=== PATIENT | female | born 1945 | race Caucasian/White ===

== ENCOUNTER 2018-03-09 07:44 | Inpatient (IN) | payer MEDICARE ==
[2018-03-07 14:40] LABS: BASOPHILS # (AUTO) 0.1 (0.0-0.1); BASOPHILS % 0.4 % (0.0-1.0); EOSINOPHILS # (AUTO) 0.3 (0.0-0.4); EOSINOPHILS % 2.3 % (0.0-6.0); HEMATOCRIT 31.3 % (34.2-44.1); HEMOGLOBIN 9.8 g/dL (12.0-16.0); LYMPHOCYTES # (AUTO) 3.1 (1.0-3.2); LYMPHOCYTES % 27.2 % (18.0-39.1); MEAN CORPUSCULAR HEMOGLOBIN 31.3 pg (28-32); MEAN CORPUSCULAR HGB CONC 31.3 g/dL (31-35); MONOCYTES % 8.6 % (4.4-11.3); NEUTROPHILS % 61.2 % (38.7-80.0); PLATELET COUNT 185 x10e3/uL (140-360); RED BLOOD COUNT 3.13 x10e6/uL (3.6-5.1); RED CELL DISTRIBUTION WIDTH 12.1 % (11.7-14.4)
[2018-03-07 14:57] LABS: ANION GAP 16.3 mmol/L (8-16); CALCIUM 9.2 mg/dL (8.4-10.2); CREATININE, SERUM 2.57 mg/dL (0.57-1.11); POTASSIUM 4.3 mmol/L (3.5-5.1)
--- NOTE | 2018-03-07 15:18 | Diagnostic Imaging Report ---
EXAMINATION: PA and lateral views of the chest. COMPARISON: None CLINICAL HISTORY: Preoperative evaluation for hernia removal DISCUSSION: Lines/tubes: Sternotomy wires. Single lead ICD with the lead projecting left of the generator in the left lower chest. Lungs: The lungs are well inflated and clear. No pneumonia or pulmonary edema. Pleura: No pleural effusion or pneumothorax. Heart and mediastinum: Mild cardiomegaly Bones and soft tissues: No acute bony abnormalities. IMPRESSION: No acute cardiopulmonary abnormalities. Signed by: Dr. Javed King M.D. on 03/07/2018 3:14 PM
[~2018-03-09] VITALS: Ht 177.8 cm; Wt 98.6 kg
[~2018-03-09 07:44] MED LIST: ACETAMINOPHEN650 MG PO; AMIODARONE HCL200 MG PO; AMLODIPINE BESYL5 MG PO; ASPIR 8181 MG PO; ASPIR-LOW81 MG PO; ATORVASTATIN CA80 MG PO; BISACODYL5 MG PO; BUMETANIDE2 MG PO; CALCIUM-MAGNES1 EACH PO; CALCIUM600 MG PO; CARVEDILOL3.125 MG PO; CLONIDINE HCL0.2 MG PO; COMBIVENT RESPIM4 GM INH; CYCLOBENZAPRINE10 MG PO; DOCUSATE SODIU100 MG PO; DOXYCYCLINE MO100 MG PO; FERROUS SULFAT325 M1 PO; FLUOXETINE HCL20 MG PO; FOLIC ACID PO; FUROSEMIDE40 MG PO; GABAPENTIN300 MG PO; GABAPENTIN300 MG/6 M PO; GLYCERIN1 EAC1 RC; HEPARIN SO1000 UNIT/ IVP; HEPARIN SO5000 UNIT/ IV; HUMALOG100 UNIT/3 SQ; HYDROCODONE PO; LACTULOSE20 GM/30 M PO; LEVEMIR100 UNIT/1 SQ; LIDOCAINE PATCH TD; LINZESS PO; MANNITOL50 ML IVP; MEGARED PO; MEROPENEM500 MG IV; METFORMIN HCL500 MG PO; METOPROLOL TART25 MG PO; MULTIVITAMIN PO; MULTIVITAMINS1 EAC7 PO; NOVOLOG MI100 UNITS/ SQ; NYSTATIN1 EAC1 TOP; PANTOPRAZOLE SO40 MG IVP; PANTOPRAZOLE SO40 MG PO; POLYETHYLENE GL17 GM PO; PRILOSEC40 MG PO; PROMETHAZINE HC25 M1 PO; PROTEIN POWDER454 GM PO; QUETIAPINE FUMA25 MG PO; SERTRALINE HCL50 MG PO; TRAZODONE HCL50 MG PO; TYLENOL WITH C1 EACH PO; ULTRAM50 MG PO; VANCOMYCIN HCL500 MG IV; VITAMIN RENAL PO; VOLTAREN100 GM TOP; WARFARIN SODIUM1 MG PO; ZOFRAN ODT4 MG IVP; ZOLPIDEM TARTRA10 MG PO
[2018-03-09] MEDS ORDERED: CEFAZOLIN SOD 2 GM/D5W 50ML 50 ML IV ONE (08:06)
[2018-03-09] MEDS ORDERED: BUPIVACAINE HCL 0.5% INJ 30 ML VIAL INJ ONE (09:42)
[2018-03-09] MEDS ORDERED: CISATRACURIUM BESYLATE IV ONE ×2 (09:42→09:45)
[2018-03-09] MEDS ORDERED: TRAMADOL HCL 50 MG TAB PO PRN (10:45)
[2018-03-09] MEDS ORDERED: ONDANSETRON HCL INJ 2 MG/ML VIAL IV PRN (10:45)
[2018-03-09] MEDS ORDERED: MORPHINE SULFATE INJ 4 MG/ML INJ IV PRN (10:45)
--- NOTE | 2018-03-09 11:30 | Operative Report ---
DATE OF PROCEDURE: March 09, 2018 PREOPERATIVE DIAGNOSES 1. Umbilical hernia. 2. Gastrocutaneous fistula. POSTOPERATIVE DIAGNOSES 1. Umbilical hernia. 2. Gastrocutaneous fistula. PROCEDURES 1. Resection of gastrocutaneous fistula with closure of gastric perforation. 2. Repair of umbilical hernia. ETCHER ELECTROLYTIC: None. ANESTHESIA: General endotracheal. INDICATIONS AND FINDINGS: Patient is a 72-year-old female who previously had a gastrostomy tube which was removed but never healed. She also had a large hernia in the umbilicus and just above it. At surgery, the patient had an umbilical hernia containing a large amount of colon and small bowel with a fascial defect that was about 6 cm in diameter. There was a fistula from the stomach. The stomach was adherent to the abdominal wall at the site of the gastrostomy tube, which was resected without problem. TECHNIQUE: After adequate general endotracheal anesthesia, with the patient in the supine position, the abdomen was prepped and draped in a sterile fashion with Betadine solution. A transverse incision was made over the area of the hernia and carried down through subcutaneous tissue. The hernia mass was dissected free from the subcutaneous tissues down to the fascia. The hernia sac was opened. There were colon and small bowel within the hernia sac which was reduced in the peritoneal cavity. The umbilicus was freed from the hernia sac. The redundant hernia sac was excised. Going through the hernia defect, the area of the fistula was identified. The abdominal wall was elevated, and the stomach was grasped with an Allis clamp. It was dissected free from the abdominal wall. The fistula from the stomach was resected. A TL60 stapler was placed across the stomach and fired, resecting the fistula and closing the gastric perforation. The wound in the left upper quadrant where the fistula was was left open. The mucosa and some granulation tissue were cauterized with electrocautery. The peritoneal cavity was inspected for hemostasis, which was seen to be adequate. The umbilical hernia was then closed directly transversely with a running suture of #1 Prolene. Subcutaneous tissue was irrigated with saline. A 10-mm flat Ronn-Walter drain was placed in the subcutaneous tissue through a separate stab wound incision. The umbilicus had a small opening. This was closed with 3-0 Vicryl and Dermabond. It was sutured to the fascia using 3-0 Vicryl. Subcutaneous tissue was closed with a running suture of 3-0 Vicryl. Skin was closed with chinmay. Sterile dressing was applied. Patient tolerated the procedure well. Estimated blood loss was 40 mL. There were no complications. All counts were correct. Patient was taken to the recovery room in satisfactory condition. Job#: [id number] cc:KENYETTA NAVA DO
[2018-03-09 11:54] VITALS: BP 169/72
[2018-03-09] MEDS ORDERED: DEXTROSE 50% SYRINGE 50 ML IV PRN (12:45)
[2018-03-09] MEDS: SODIUM CHLORIDE 0.9% 1000ML 1,000 ML IV SCH ×2 (12:56→20:44)
[2018-03-09 13:03] VITALS: BP 142/60
[2018-03-09] MEDS: HYDROCODONE/APAP 7.5MG-325MG 1 EA TAB PO PRN ×2 (13:14→18:24)
[2018-03-09 13:21] VITALS: BP 142/60
[2018-03-09] MEDS ORDERED: CEFAZOLIN SOD 2 GM in WATER STERILE 10ML VIAL 10 ML IV SCH (14:00)
[2018-03-09] MEDS: CEFAZOLIN SOD 2 GM/D5W 50ML 50 ML IV SCH ×2 (14:45→21:50)
[2018-03-09] MEDS: GABAPENTIN 300 MG CAP PO SCH ×2 (15:14→21:49)
[2018-03-09 16:00] VITALS: BP 143/65
[2018-03-09] MEDS ORDERED: NON-FORMULARY MEDICATION (Insulin Detemir (Levemir) 40 UNITS) SQ SCH (16:30)
[2018-03-09] MEDS ORDERED: NON-FORMULARY MEDICATION (Bumetanide 2 MG) PO SCH (17:00)
[2018-03-09] MEDS: BUMETANIDE 1 MG TAB PO SCH (17:14)
[2018-03-09] MEDS: CLONIDINE HCL 0.2 MG TAB PO SCH (17:14)
[2018-03-09] MEDS: INSULIN DETEMIR 100 UNIT/ML PEN SQ SCH (17:15)
[2018-03-09] MEDS ORDERED: PROPOFOL IV EMULSION 10 MG/ML 20 ML VIAL ONE (17:24)
[2018-03-09] MEDS ORDERED: SEVOFLURANE INHAL SOLN 250 ML PEN BTL ONE (17:24)
[2018-03-09] MEDS ORDERED: GLYCOPYRROLATE INJ 1MG/ 5 ML SYR ONE (17:24)
[2018-03-09] MEDS ORDERED: DEXAMETHASONE SOD PHOS INJ 4 MG/ML VIAL ONE (17:24)
[2018-03-09] MEDS ORDERED: NEOSTIGMINE 5 MG/5ML SYR ONE (17:24)
[2018-03-09] MEDS ORDERED: ONDANSETRON HCL INJ 2 MG/ML VIAL ONE (17:24)
[2018-03-09] MEDS ORDERED: LIDOCAINE HCL 2% LOCAL INJ 5 ML SDV VIAL INJ ONE (17:24)
[2018-03-09] MEDS: INSULIN LISPRO 100 UNIT/1 ML 3ML VIAL SQ SCH ×2 (18:07→21:50)
[2018-03-09] MEDS ORDERED: FENTANYL CITRATE/PF 100MCG/2 ML INJ ONE (19:16)
[2018-03-09] MEDS ORDERED: MIDAZOLAM HCL 2 MG/2 ML VIAL ONE (19:16)
[2018-03-09 20:00] VITALS: BP 133/59
[2018-03-09] MEDS ORDERED: ATORVASTATIN CALCIUM 20 MG PO SCH (21:00)
[2018-03-09] MEDS: ATORVASTATIN 20 MG TAB PO SCH (21:49)
[2018-03-10] VITALS (8 sets, daily range): BP systolic 119–167; BP diastolic 56–80
[2018-03-10] MEDS: SODIUM CHLORIDE 0.9% 1000ML 1,000 ML IV SCH ×2 (04:49→16:50)
[2018-03-10] MEDS: CEFAZOLIN SOD 2 GM/D5W 50ML 50 ML IV SCH ×3 (05:15→21:04)
[2018-03-10 05:24] LABS: BASOPHILS % 0.2 % (0.0-1.0); EOSINOPHILS # (AUTO) 0.1 (0.0-0.4); EOSINOPHILS % 0.5 % (0.0-6.0); HEMATOCRIT 28.4 % (34.2-44.1); HEMOGLOBIN 9.1 g/dL (12.0-16.0); LYMPHOCYTES % 26.9 % (18.0-39.1); MEAN CORPUSCULAR HEMOGLOBIN 31.5 pg (28-32); MEAN CORPUSCULAR VOLUME 98.3 fL (81-99); MONOCYTES # (AUTO) 0.9 (0.2-0.8); MONOCYTES % 8.4 % (4.4-11.3); NEUTROPHILS % 63.6 % (38.7-80.0); PLATELET COUNT 183 x10e3/uL (140-360); RED BLOOD COUNT 2.89 x10e6/uL (3.6-5.1); RED CELL DISTRIBUTION WIDTH 12.1 % (11.7-14.4)
[2018-03-10 06:04] LABS: ANION GAP 14.6 mmol/L (8-16); CALCIUM 9.3 mg/dL (8.4-10.2); CREATININE, SERUM 2.1 mg/dL (0.57-1.11); POTASSIUM 4.6 mmol/L (3.5-5.1)
[2018-03-10] MEDS: HYDROCODONE/APAP 7.5MG-325MG 1 EA TAB PO PRN ×4 (06:45→22:14)
[2018-03-10] MEDS: INSULIN LISPRO 100 UNIT/1 ML 3ML VIAL SQ SCH ×4 (07:30→20:28)
[2018-03-10] MEDS: LINACLOTIDE 145 MCG CAPSULE PO SCH (08:54)
[2018-03-10] MEDS: GABAPENTIN 300 MG CAP PO SCH ×3 (08:54→21:04)
[2018-03-10] MEDS: ASPIRIN 81 MG CHEW TAB PO SCH (08:54)
[2018-03-10] MEDS: FLUOXETINE HCL 20 MG CAP PO SCH (08:54)
[2018-03-10] MEDS: AMLODIPINE BESYLATE 5 MG TAB PO SCH (08:54)
[2018-03-10] MEDS: BUMETANIDE 1 MG TAB PO SCH ×2 (08:54→16:50)
[2018-03-10] MEDS: FERROUS SULFATE 325 MG TAB PO SCH (08:54)
[2018-03-10] MEDS: CLONIDINE HCL 0.2 MG TAB PO SCH ×2 (08:54→16:50)
[2018-03-10] MEDS: CALCIUM CARBONATE 500 MG CHEWABLE TABS PO SCH (08:55)
[2018-03-10] MEDS ORDERED: NON-FORMULARY MEDICATION (Calcium Carbonate (Calcium) 600 MG) PO SCH (09:00)
[2018-03-10] MEDS ORDERED: LINZESS 145 MCG PO SCH (09:00)
[2018-03-10] MEDS: INSULIN DETEMIR 100 UNIT/ML PEN SQ SCH (17:07)
[2018-03-10] MEDS: ATORVASTATIN 20 MG TAB PO SCH (21:04)
[2018-03-11] VITALS (7 sets, daily range): BP systolic 147–203; BP diastolic 66–86
[2018-03-11] MEDS: SODIUM CHLORIDE 0.9% 1000ML 1,000 ML IV SCH (04:49)
[2018-03-11] MEDS: CLONIDINE HCL 0.2 MG TAB PO SCH (04:49)
[2018-03-11] MEDS: CEFAZOLIN SOD 2 GM/D5W 50ML 50 ML IV SCH (06:09)
[2018-03-11] MEDS: INSULIN LISPRO 100 UNIT/1 ML 3ML VIAL SQ SCH ×2 (07:30→11:30)
[2018-03-11 08:48] LABS: BASOPHILS % 0.3 % (0.0-1.0); EOSINOPHILS # (AUTO) 0.3 (0.0-0.4); EOSINOPHILS % 2.9 % (0.0-6.0); HEMATOCRIT 30.3 % (34.2-44.1); LYMPHOCYTES # (AUTO) 2.3 (1.0-3.2); LYMPHOCYTES % 26.1 % (18.0-39.1); MEAN CORPUSCULAR HEMOGLOBIN 31.9 pg (28-32); MEAN CORPUSCULAR VOLUME 96.8 fL (81-99); MONOCYTES # (AUTO) 0.7 (0.2-0.8); MONOCYTES % 8.4 % (4.4-11.3); NEUTROPHILS # (AUTO) 5.4 (2.1-6.9); PLATELET COUNT 168 x10e3/uL (140-360); RED BLOOD COUNT 3.13 x10e6/uL (3.6-5.1); RED CELL DISTRIBUTION WIDTH 12.1 % (11.7-14.4)
[2018-03-11] MEDS: BUMETANIDE 1 MG TAB PO SCH (08:50)
[2018-03-11] MEDS: GABAPENTIN 300 MG CAP PO SCH ×2 (08:50→14:58)
[2018-03-11] MEDS: FLUOXETINE HCL 20 MG CAP PO SCH (08:50)
[2018-03-11] MEDS: AMLODIPINE BESYLATE 5 MG TAB PO SCH (08:50)
[2018-03-11] MEDS: FERROUS SULFATE 325 MG TAB PO SCH (08:50)
[2018-03-11] MEDS: LINACLOTIDE 145 MCG CAPSULE PO SCH (08:50)
[2018-03-11] MEDS: CALCIUM CARBONATE 500 MG CHEWABLE TABS PO SCH (08:50)
[2018-03-11] MEDS: HYDROCODONE/APAP 7.5MG-325MG 1 EA TAB PO PRN ×2 (08:50→14:59)
[2018-03-11] MEDS: ASPIRIN 81 MG CHEW TAB PO SCH (08:50)
[2018-03-11 09:24] LABS: ALBUMIN 3.1 g/dL (3.5-5.0); ALBUMIN/GLOBULIN RATIO 0.8 (0.8-2.0); ALKALINE PHOSPHATASE 92 IU/L (40-150); ANION GAP 15.3 mmol/L (8-16); BLOOD UREA NITROGEN 28 mg/dL (7-26); BUN/CREATININE RATIO 16 (6-25); CALCIUM 9.5 mg/dL (8.4-10.2); CARBON DIOXIDE 28 mmol/L (22-29); CHLORIDE 102 mmol/L (98-107); CREATININE, SERUM 1.78 mg/dL (0.57-1.11); EST GLOMERULAR FILTRATION RATE 28 ML/MIN (60-); GLUCOSE 87 mg/dL (74-118); POTASSIUM 4.3 mmol/L (3.5-5.1); SODIUM 141 mmol/L (136-145)
[2018-03-11 09:28] LABS: ALANINE AMINOTRANSFERASE < 6 IU/L (0-55)
[2018-03-11] MEDS ORDERED: TYLENOL # 31 EA PO (15:37)
== END 2018-03-11 16:21 | disposition home or self-care (01) | DRG 354 ==
LOC: OR 07:44 → PACU V 11:10 → MED/SURG 11:54
PROVIDERS: ADMIT Surgery; ATTEND Surgery
PROC: 0WBF0ZZ Excision of Abdominal Wall, Open Approach (ICD-10-PCS; 2018-03-09)
PROC: 0WQF0ZZ Repair Abdominal Wall, Open Approach (ICD-10-PCS; principal; 2018-03-09 09:54)
DX: K42.9 Umbilical hernia without obstruction or gangrene (principal); K31.6 Fistula of stomach and duodenum; N18.4 Chronic kidney disease, stage 4 (severe); N17.9 Acute kidney failure, unspecified; I25.2 Old myocardial infarction; Z86.73 Personal history of transient ischemic attack (TIA), and cerebral infarction without residual deficits; Z96.653 Presence of artificial knee joint, bilateral; I25.10 Atherosclerotic heart disease of native coronary artery without angina pectoris; E11.22 Type 2 diabetes mellitus with diabetic chronic kidney disease; I12.9 Hypertensive chronic kidney disease with stage 1 through stage 4 chronic kidney disease, or unspecified chronic kidney disease; Z79.4 Long term (current) use of insulin; D64.9 Anemia, unspecified; E11.65 Type 2 diabetes mellitus with hyperglycemia; Z95.1 Presence of aortocoronary bypass graft
CPT/HCPCS: 36415; 71046; 80048; 80053; 82948; 85025; 86850; 86900; 88302; 88304; 88305; 93005; 96372; J1100; J2001; J2250; J2405; J7030

== ENCOUNTER 2018-08-21 09:00 | Inpatient (IN) | payer MEDICARE, OTHER ==
[~2018-08-21] VITALS: Ht 177.8 cm; Wt 94.5 kg
[~2018-08-21 09:00] MED LIST changes: +TYLENOL # 31 EA PO
--- OUTSIDE RECORDS SUMMARY | 2018-08-21 09:06 | XMS REPORT | Clinical Summary ---
Author Author [facility] Organization [facility] Address Unknown Phone Unavailable Care Team Providers Care Retail Sales Merchandiser Name Role Phone Amilcar Pedersen MD PCP Allergies Comments Active Allergy Reactions Severity Noted Date Levofloxacin 12/28/2016 Medications End Date Status Medication Sig Dispensed Refills Start Date Active amIODarone (PACERONE) 200 0 MG tablet 7 Active amLODIPine (NORVASC) 5 mg 0 tablet 7 Active atorvastatin (LIPITOR) 20 0 MG tablet 7 Active RESTASIS 0.05 % 0 ophthalmic emulsion 7 Active doxycycline (VIBRA-TABS) 0 100 MG tablet 7 Active FLUoxetine (PROzac) 20 MG 0 capsule 7 Active furosemide (LASIX) 40 mg 0 tablet 7 Active furosemide (LASIX) 20 mg 0 tablet 7 Active gabapentin (NEURONTIN) 0 300 mg capsule 7 Active HYDROcodone-acetaminophen 0 (NORCO) 10-325 mg per 7 tablet Active LEVEMIR FLEXTOUCH 100 0 unit/mL (3 mL) insulin 7 pen Active HUMALOG KWIKPEN 100 0 unit/mL injection pen 7 Active ROZEREM 8 mg tablet 0 7 Active metoprolol tartrate 0 (LOPRESSOR) 25 mg tablet 7 Active metFORMIN XR 0 (GLUCOPHAGE-XR) 500 mg 24 7 hr tablet Active lidocaine (LIDODERM) 5 % 0 7 Active COMBIVENT RESPIMAT 20-100 0 mcg/actuation mist 7 inhaler Active traMADol (ULTRAM) 50 mg Take 50 mg by 0 tablet mouth every 6 (six) hours as needed for moderate pain. Active acetaminophen (TYLENOL) Take 325 mg 0 325 MG tablet by mouth every 6 (six) hours as needed for fever. Active cyclobenzaprine Take 5 mg by 0 (FLEXERIL) 5 mg tablet mouth 3 (three) times a day as needed for muscle spasms. Active lactulose (CEPHULAC) 10 Take 10 g by 0 gram packet mouth 3 (three) times a day. Active polyethylene glycol Take 17 g by 0 (MIRALAX) 17 gram packet mouth daily. Active Problems Not on file Family History Medical History Relation Name Comments Heart attack Father Heart attack Mother Relation Name Status Comments Father Mother Social History Date Tobacco Use Types Packs/Day Years Used Never Smoker Alcohol Use Drinks/Week oz/Week Comments No Sex Assigned at Date Recorded Not on file Industry Job Start Date Occupation Not on file Not on file Not on file Travel End Travel History Travel Start No recent travel history available. Last Filed Vital Signs Not on file Plan of Treatment Health Maintenance Due Date Last Done Comments BREAST CANCER SCREENING 1995 COLON CANCER SCREENING 1995 SHINGLES VACCINES (#1) 1995 65+ PNEUMOCOCCAL VACCINE 2010 (1 of 2 - PCV13) PNEUMOCOCCAL 2010 POLYSACCHARIDE VACCINE AGE 65 AND OVER INFLUENZA VACCINE 01/12/2018 Results Not on fileafter 08/20/2017 Insurance Payer Benefit Subscriber ID Type Phone Address Plan / Group [facility] xxxxxxxxx HMO/PPO THCARE CHOICE/CHO ICE + Advance Directives Patient has advance care planning documents on file. For more information, soheila chavez contact: Wil[address] [place] [address]
--- OUTSIDE RECORDS SUMMARY | 2018-08-21 09:07 | XMS REPORT | Clinical Summary ---
Author Author [facility] Organization [facility] Address Unknown Phone Unavailable Care Team Providers Care Road Cleaner Name Role Phone Amilcar Pedersen MD PCP [...] ID Type Phone Address Plan / Group [facility] xxxxxxxxx HMO/PPO THCARE CHOICE/CHO ICE + Advance Directives Patient has advance care planning documents on file. For more information, soheila chavez contact: [address] [place] [address]
[2018-08-21 10:27] LABS: BASOPHILS % 0.4 % (0.0-1.0); HEMOGLOBIN 13.2 g/dL (12.0-16.0); LYMPHOCYTES # (AUTO) 0.6 (1.0-3.2); LYMPHOCYTES % 12.8 % (18.0-39.1); MEAN CORPUSCULAR HEMOGLOBIN 30.2 pg (28-32); MEAN CORPUSCULAR HGB CONC 31.4 g/dL (31-35); MEAN CORPUSCULAR VOLUME 96.1 fL (81-99); MONOCYTES # (AUTO) 0.4 (0.2-0.8); NEUTROPHILS # (AUTO) 3.6 (2.1-6.9); NEUTROPHILS % 78.6 % (38.7-80.0); PLATELET COUNT 215 x10e3/uL (140-360); RED BLOOD COUNT 4.37 x10e6/uL (3.6-5.1); RED CELL DISTRIBUTION WIDTH 12.3 % (11.7-14.4)
[2018-08-21 10:33] LABS: INR 1.01; PROTHROMBIN TIME 13.8 seconds (11.9-14.5)
[2018-08-21 10:43] LABS: ALBUMIN 3.4 g/dL (3.5-5.0); ALBUMIN/GLOBULIN RATIO 0.8 (0.8-2.0); ANION GAP 18.2 mmol/L (8-16); CALCIUM 10.3 mg/dL (8.4-10.2); CREATININE, SERUM 2.6 mg/dL (0.57-1.11); MAGNESIUM 1.9 MG/DL (1.3-2.1); POTASSIUM 4.2 mmol/L (3.5-5.1)
[2018-08-21 10:44] LABS: CLARITY,URINE CLEAR (CLEAR); COLOR,URINE YELLOW (YELLOW)
[2018-08-21 10:45] LABS: BILIRUBIN,URINE NEGATIVE (NEGATIVE); KETONES,URINE NEGATIVE (NEGATIVE); LEUKOCYTE ESTERASE ,URINE NEGATIVE (NEGATIVE); NITRITE,URINE NEGATIVE (NEGATIVE); PROTEIN,URINE DIPSTICK 2+ (NEGATIVE); RBC,URINE 0-5 /HPF (0-5); URINE UROBILINOGEN 0.2 mg/dL (0.2 - 1); WBC,URINE (MAN) 0-5 /HPF (0-5)
[2018-08-21 10:46] LABS: AMORPHOUS SEDIMENT,URINE FEW (FEW)
[2018-08-21 10:50] LABS: CREATINE KINASE MB 0.2 ng/mL (0-5.0)
[2018-08-21] MEDS ORDERED: SODIUM CHLORIDE 0.9% 500ML 500 ML IV ONE (11:00)
[2018-08-21 11:06] LABS: B-TYPE NATRIURETIC PEPTIDE2 422.2 pg/mL (0-100)
--- NOTE | 2018-08-21 11:07 | NUR ---
BEDSIDE REPORT TO DARA Harmon
--- NOTE | 2018-08-21 11:22 | Diagnostic Imaging Report ---
Exam: Head CT without contrast History: Weakness, altered mental status, fall Comparison studies: None Technique: Axial images were obtained from the skull base to the vertex. Coronal and sagittal images reconstructed from the axial data. Dose modulation, iterative reconstruction, and/or weight based adjustment of the mA/kV was utilized to reduce the radiation dose to as low as reasonably achievable. Radiation dose: Total DLP: 921 mGy*cm. Estimated effective dose: DLP x 0.015 Intravenous contrast: None Findings: Scalp: No abnormalities. Bones: No fractures, blastic or lytic lesions. Brain sulci: Appropriate for age. Ventricles: Mild compensatory dilatation of the lateral and third ventricles. No hydrocephalus. Extra-axial spaces: No masses, no fluid collection. Parenchyma: No mass, acute hemorrhage or acute cortical vascular insults. A few scattered hypodensities in the supratentorial white matter are nonspecific but most compatible with chronic small vessel ischemic changes. Sellar/suprasellar region: No abnormalities. Craniocervical junction: Patent foramen magnum. No Chiari one malformation. Incidental findings: Atherosclerotic calcifications in the carotid siphons and in the right intradural vertebral artery. IMPRESSION: 1. No acute abnormalities. 2. Mild chronic microvascular ischemic changes. Signed by: Dr. Anthony Gann M.D. on 08/21/2018 11:19 AM
--- NOTE | 2018-08-21 11:27 | Diagnostic Imaging Report ---
EXAMINATION: Portable AP radiograph of the chest. COMPARISON: Chest radiograph 03/07/2018. CLINICAL HISTORY: Cough, weakness. DISCUSSION: Lines/tubes: Implantable ICD with lead projecting just left of the sternum and generator in the left lower chest. Lungs: The lungs are moderately inflated. No evidence of pneumonia or pulmonary edema. A nodular opacity projects over the left upper lung. Mild central vascular congestion. Pleura: No pleural effusion or pneumothorax. Heart and mediastinum: Unremarkable cardiomediastinal silhouette. Bones and soft tissues: No acute bony abnormalities. Degenerative changes in the thoracic spine IMPRESSION: No acute radiographic abnormality. Nodular opacity projects over the left upper lung. A chest CT is recommended for further evaluation. Signed by: Dr. Kathleen Ruiz MD on 08/21/2018 11:23 AM
[2018-08-21 11:28] LABS: BAND NEUTROPHILS % (MANUAL) 42 %; LYMPHOCYTES % (MANUAL) 27 % (19-48); METAMYELOCYTES % (MANUAL) 1 % (0-0); MONOCYTES % (MANUAL) 9 % (3.4-9.0); NEUTROPHILS % (MANUAL) 21 % (40-74); PLATELET ESTIMATE ADEQUATE; PLATELET MORPHOLOGY COMMENT NORMAL; RBC MORPHOLOGY COMMENT NORMAL
[2018-08-21] MEDS: CEFEPIME 2 GM/NS 0.9% 100 ML 100 ML IV SCH (12:00)
[2018-08-21] MEDS ORDERED: VANCOMYCIN 1GM/NS 250 ML 250 ML IV ONE (12:15)
--- NOTE | 2018-08-21 12:47 | Diagnostic Imaging Report ---
EXAM: CT Abdomen and Pelvis WITHOUT contrast INDICATION: Weakness, altered mental status, status post fall. COMPARISON: Chest radiograph 08/21/2018. TECHNIQUE: Abdomen and pelvis were scanned utilizing a multidetector helical scanner from the lung base to the pubic symphysis without administration of IV contrast. Absence of intravenous contrast decreases sensitivity for detection of focal lesions and vascular pathology. Coronal and sagittal reformations were obtained. Routine protocol was performed. IV CONTRAST: None. ORAL CONTRAST: Water RADIATION DOSE: Total DLP: 703.8 mGy*cm Dose modulation, iterative reconstruction, and/or weight based adjustment of the mA/kV was utilized to reduce the radiation dose to as low as reasonably achievable. COMPLICATIONS: None FINDINGS: LINES and TUBES: There is a gastric band with the port in the right upper anterior abdominal wall soft tissues. LOWER THORAX: There is linear subsegmental atelectasis at the lung bases. Coronary atherosclerosis. Partially seen left lateral chest wall AICD device. HEPATOBILIARY: No focal hepatic lesions. No biliary ductal dilation. GALLBLADDER: Mildly distended. No radio-opaque stones or sludge. No wall thickening. SPLEEN: No splenomegaly. PANCREAS: No focal masses or ductal dilatation. ADRENALS: No adrenal nodules KIDNEYS/URETERS: No hydronephrosis. No cystic or solid mass lesions. No stones. GI TRACT: Suboptimal evaluation of the bowel in the absence of IV and oral contrast. Streak artifact from right hip hardware limits evaluation of the sigmoid colon. There is colonic diverticulosis, most pronounced in the sigmoid colon, without definite evidence of diverticulitis. There is mild dilation of small bowel loops, measuring up to 3.4 cm proximally. No definite transition point. There is mild thickening of small bowel loops proximally and thickening of the terminal ileum and possibly cecum. There is stranding and free fluid within the right lower quadrant, incompletely evaluated due to streak artifact. The appendix is not clearly identified. PELVIC ORGANS/BLADDER: Limited evaluation due to streak artifact. The bladder is decompressed. LYMPH NODES: No lymphadenopathy. VESSELS: There are extensive atherosclerotic calcifications in the aorta and branch vessels. PERITONEUM / RETROPERITONEUM: Small amount of ascites within the right lower quadrant. No free air. BONES/SOFT TISSUES: Diffuse osteopenia. No suspicious lytic or blastic lesions. No acute osseous abnormality. Degenerative changes of the visualized spine. Partially seen right total hip arthroplasty. IMPRESSION: Limited evaluation of the bowel secondary to lack of contrast and streak artifact from right hip arthroplasty. There is significant stranding within the right lower quadrant, of unclear etiology, and could reflect inflammatory changes of the small bowel or cecum. However appendix is not identified and appendicitis is possible. Recommend repeat CT with oral contrast. There is mild thickening of small bowel loops, some of which are distended. No definite transition point. This could represent enteritis in the appropriate clinical setting. No evidence of high-grade obstruction. No evidence of acute traumatic abnormality within the abdomen or pelvis. Signed by: Dr. Kathleen Ruiz MD on 08/21/2018 12:44 PM
[2018-08-21] MEDS ORDERED: MORPHINE SULFATE INJ 4 MG/ML INJ 1ML ONE (13:13)
[2018-08-21 13:20] VITALS: BP 122/58
[2018-08-21] MEDS: ONDANSETRON HCL INJ 2MG/ML 2ML 2 MG/ML VIAL IV PRN ×2 (13:23→18:45)
[2018-08-21] MEDS: MORPHINE SULFATE INJ 4 MG/ML INJ 1ML IV PRN ×2 (13:23→18:45)
[2018-08-21] MEDS ORDERED: SODIUM CHLORIDE 0.9% 1000ML 1,000 ML IV ONE (13:45)
[2018-08-21] MEDS ORDERED: DEXTROSE 50% SYRINGE 50 ML IV PRN (13:45)
--- OUTSIDE RECORDS SUMMARY | 2018-08-21 14:01 | XMS REPORT | Clinical Summary ---
Author Author [facility] Organization [facility] Address Unknown Phone Unavailable Care Team Providers Care Crisis Counselor Name Role Phone Amilcar Pedersen MD PCP [...] ID Type Phone Address Plan / Group [facility] xxxxxxxxx HMO/PPO THCARE CHOICE/CHO ICE + Advance Directives Patient has advance care planning documents on file. For more information, soheila chavez contact: [address] [place] [address]
[2018-08-21] MEDS: METRONIDAZOLE 500MG/NS 100ML 100 ML IV SCH ×2 (14:15→18:13)
--- NOTE | 2018-08-21 14:42 | NUR ---
REPORT RECEIVED FROM DARA IN ER. AWAITING FOR PT TO ARRIVE TO FLOOR
--- NOTE | 2018-08-21 14:50 | Diagnostic Imaging Report ---
EXAM: CT Chest without contrast. INDICATION: Pleura nodule on chest radiograph. COMPARISON: Chest radiograph 08/21/2018. TECHNIQUE: Chest was scanned utilizing a multidetector helical scanner from the lung apex through the level of the adrenal glands without administration of IV contrast. Coronal and sagittal reformations were obtained. Routine protocol was performed. IV CONTRAST: None. RADIATION DOSE: Total DLP: 420.6 mGy*cm Dose modulation, iterative reconstruction, and/or weight based adjustment of the mA/kV was utilized to reduce the radiation dose to as low as reasonably achievable. COMPLICATIONS: None FINDINGS: LINES/ TUBES: Left lower lateral chest wall pacer device with single lead adjacent to the sternum. LUNGS AND AIRWAYS: Corresponding to the left upper lobe nodular opacity noted on chest radiograph, there is a calcified granuloma measuring 4 mm on series 3, image 19. There is dependent mucous within the distal trachea and right mainstem bronchus. The central airways are otherwise patent. There is dependent subsegmental atelectasis in the lower lungs. Mild biapical pleural-parenchymal opacity. PLEURA: The pleural spaces are clear. HEART AND MEDIASTINUM: The thyroid gland is normal. No mediastinal, hilar or axillary lymphadenopathy. No cardiomegaly or pericardial effusion. Extensive coronary atherosclerosis. Mediastinal clips are present. Atherosclerotic calcifications of the thoracic aorta and branch vessels. The esophagus is severely distended with substantial fluid in the mid and distal portions. UPPER ABDOMEN: Please refer to the same day CT abdomen the abdomen and pelvis for further details. BONES/SOFT TISSUES: No acute osseous abnormality. No suspicious lytic or blastic lesions. Status post median sternotomy. IMPRESSION: Left upper lobe calcified granula corresponding to nodular opacity noted on same day chest radiograph. Severely dilated esophagus with substantial fluid in the mid and distal portions, which may increase the risk for aspiration. Gastroesophageal reflux could be seen in the setting of gastric band. Suggest correlation with clinical history and endoscopy if clinically indicated. Signed by: Dr. Kathleen Ruiz MD on 08/21/2018 2:47 PM
--- NOTE | 2018-08-21 15:10 | NUR ---
RECEIVED PT TO FLOOR [id number]. PT C/O PAIN TO LLQ, PT RECEIVED MORPHINE IN THE ER, INSTRUCTED SHE COULD HAVE MORPHINR Q4 HR NEEDED . PT HAS A RIGHT AC 20 WITH VANC RUNNING . WILL START FLUIDS AFTER ABX COMPLETE. PT IS ON BEDREST DUE TO WEAKNESS CONSULTS HAVE BEEN CALLED . (Miquel MOREIRA, Malina BURROWS) PT AND FAMILY AWARE OF PLAN OF CARE, PT UNDERSTANDS SHE IS NPO. WILL CONTINUE TO CARE FOR PT AT THIS TIME, SIDE [id number], BED WHEELS LOCKED, CALL LIGHT IS WITHIN EASY REACH, INSTRUCTED TO CALL FOR ASSISTANCE IF NEEDED
[2018-08-21 15:36] VITALS: BP 122/58
--- NOTE | 2018-08-21 16:00 | NUR ---
PLACED PT ON BC 02 2L FOR A SAT OD 92%. PT IS NOW ON CONT PULS OX READING 95%
[2018-08-21] MEDS: INSULIN LISPRO 100 UNIT/1 ML 3ML VIAL SQ SCH (17:18)
[2018-08-21 17:33] VITALS: BP 122/58
--- NOTE | 2018-08-21 18:13 | NUR ---
md sin conway ordered pt to have ct of abd/pelvis with oral contrast. spoke to michelle in radiology . order is in md also wants cardiac onboard. consulted md phan. paged him to make his aware at this time
[2018-08-21] MEDS ORDERED: DIATRIZOATE MEGL/DIATRIZOA SOD 30 ML BTL PO ONE (18:16)
--- NOTE | 2018-08-21 18:45 | NUR ---
spoke to md phan regarding new consult. ordered echo on pt
[2018-08-21 19:19] LABS: CREATINE KINASE MB 0.2 ng/mL (0-5.0)
[2018-08-21 19:43] VITALS: BP 125/60
[2018-08-21 21:37] VITALS: BP 125/60
--- NOTE | 2018-08-21 21:44 | NUR ---
called placed to admit MD for elevated temp. awaiting call back
[2018-08-21] MEDS ORDERED: CEFEPIME HCL 2 GM VIAL ONE (23:46)
[2018-08-21] MEDS ORDERED: SODIUM CHLORIDE 0.9% 100 ML ONE (23:48)
[2018-08-21] MEDS: ACETAMINOPHEN 1000 MG/100 ML IV PRN (23:49)
[2018-08-22] VITALS (10 sets, daily range): BP systolic 119–149; BP diastolic 56–65
[2018-08-22] MEDS: METRONIDAZOLE 500MG/NS 100ML 100 ML IV SCH ×4 (00:11→16:46)
--- NOTE | 2018-08-22 00:36 | Diagnostic Imaging Report ---
EXAM: CT Abdomen and Pelvis WITHOUT contrast INDICATION: with oral contrast per radiologist recommendation. Abnormal CT COMPARISON: CT abdomen and pelvis 08/21/2018 at 11:38 AM. TECHNIQUE: Abdomen and pelvis were scanned utilizing a multidetector helical scanner from the lung base to the pubic symphysis without administration of IV contrast. Absence of intravenous contrast decreases sensitivity for detection of focal lesions and vascular pathology. Coronal and sagittal reformations were obtained. Routine protocol was performed. IV CONTRAST: None ORAL CONTRAST: Gastrografin COMPLICATIONS: None RADIATION DOSE: Total DLP: 766.8 mGy*cm Estimated effective dose: (DLP x 0.015 x size factor) mSv Dose modulation, iterative reconstruction, and/or weight based adjustment of the mA/kV was utilized to reduce the radiation dose to as low as reasonably achievable. FINDINGS: LINES and TUBES: There is a gastric band with the port in the right upper anterior abdominal wall soft tissues. A large portion of the gastric band has eroded into the gastric lumen and appears surrounded by enteric contrast in the stomach. Fluid, stranding, and air are seen tracking along the catheter (for example on series 2 image [address]). No contrast extravasation is seen from the stomach. LOWER THORAX: There is linear subsegmental atelectasis at the lung bases. Coronary atherosclerosis. Partially seen left lateral chest wall AICD device. HEPATOBILIARY: No focal hepatic lesions. No biliary ductal dilation. GALLBLADDER: Mildly distended. No radio-opaque stones or sludge. No wall thickening. SPLEEN: No splenomegaly. PANCREAS: No focal masses or ductal dilatation. ADRENALS: No adrenal nodules KIDNEYS/URETERS: No hydronephrosis. No cystic or solid mass lesions. No stones. GI TRACT: Administered enteric contrast has not reached the distal small bowel which remains unopacified. Area in question on the prior CT with thickened cecum and terminal ileum remains suboptimally evaluated as administered enteric contrast has not reached the distal small bowel. The appendix is better visualized, with tip seen on axial image 66, coronal image 51. The appendix is dilated to approximately 1.7 cm near the tip and approximately 2.5 cm at the base. Colonic diverticulosis, most pronounced in the sigmoid colon, without definite evidence of diverticulitis. PELVIC ORGANS/BLADDER: Limited evaluation due to streak artifact. The bladder is decompressed. LYMPH NODES: No lymphadenopathy. VESSELS: There are extensive atherosclerotic calcifications in the aorta and branch vessels. PERITONEUM / RETROPERITONEUM: Small amount of ascites within the right lower quadrant. No free air. BONES/SOFT TISSUES: Diffuse osteopenia. No suspicious lytic or blastic lesions. No acute osseous abnormality. Degenerative changes of the visualized spine. Partially seen right total hip arthroplasty. IMPRESSION: Limited evaluation of the area in question (right lower quadrant) described on the prior CT as enteric contrast has not reached the distal small bowel. Appendix is better visualized and dilated. There is redemonstration of inflammatory stranding and wall thickening of the terminal ileum and cecum. Findings are concerning for appendicitis. A few tiny foci of extraluminal air are again seen. Unclear if this is related to air from perforated appendicitis or the eroded lap band. Superimposed ischemia would be difficult to exclude given bowel wall thickening and reported clinical possibility, although evaluation is limited without IV contrast. No portal venous gas identified. Erosion of lap band into the gastric lumen. Findings discussed with Dr. Cheng on 08/22/2018 at 12:20 AM. Signed by: DR. Hardy Murphy MD on 08/22/2018 12:33 AM
[2018-08-22] MEDS: CEFEPIME 2 GM/NS 0.9% 100 ML 100 ML IV SCH ×2 (01:10→13:27)
[2018-08-22 02:40] LABS: BASOPHILS % 0.3 % (0.0-1.0); EOSINOPHILS % 0.3 % (0.0-6.0); HEMATOCRIT 34.6 % (34.2-44.1); HEMOGLOBIN 11.1 g/dL (12.0-16.0); LYMPHOCYTES # (AUTO) 1.6 (1.0-3.2); LYMPHOCYTES % 10.7 % (18.0-39.1); MEAN CORPUSCULAR HEMOGLOBIN 30.7 pg (28-32); MEAN CORPUSCULAR HGB CONC 32.1 g/dL (31-35); MEAN CORPUSCULAR VOLUME 95.6 fL (81-99); MONOCYTES # (AUTO) 1.4 (0.2-0.8); NEUTROPHILS # (AUTO) 12.2 (2.1-6.9); NEUTROPHILS % 79.2 % (38.7-80.0); PLATELET COUNT 169 x10e3/uL (140-360); RED BLOOD COUNT 3.62 x10e6/uL (3.6-5.1); RED CELL DISTRIBUTION WIDTH 12.5 % (11.7-14.4)
[2018-08-22 03:08] LABS: CREATINE KINASE MB 0.3 ng/mL (0-5.0)
--- NOTE | 2018-08-22 03:10 | NUR ---
spoke with dr. braxton after CT, orders for morning labs received and orders for insertion of lewis cath when patient wakes. 16 fr lewis cath placed at this time, urine return noted, 10ml balloon used. patient tolerated well. denies any pain at this time. bed locked and in lowest position. will continue to monitor the patient closely.
[2018-08-22 03:25] LABS: ALBUMIN 2.6 g/dL (3.5-5.0); ALBUMIN/GLOBULIN RATIO 0.7 (0.8-2.0); CALCIUM 9.2 mg/dL (8.4-10.2); CREATININE, SERUM 3.07 mg/dL (0.57-1.11)
[2018-08-22] MEDS: ONDANSETRON HCL INJ 2MG/ML 2ML 2 MG/ML VIAL IV PRN (05:36)
[2018-08-22] MEDS: MORPHINE SULFATE INJ 4 MG/ML INJ 1ML IV PRN ×4 (05:36→23:40)
[2018-08-22] MEDS: INSULIN LISPRO 100 UNIT/1 ML 3ML VIAL SQ SCH ×4 (06:00→18:00)
--- NOTE | 2018-08-22 11:58 | NUR ---
SPOKE TO DR. WELSH REGARDING CONSULT STATES WILL SEE PT LATER TODAY.
[2018-08-22 12:32] LABS: CREATINE KINASE MB 0.4 ng/mL (0-5.0)
[2018-08-22] MEDS ORDERED: FENTANYL CITRATE/PF 100MCG/2 ML INJ ONE (13:44)
[2018-08-22] MEDS ORDERED: KETAMINE HCL INJ 50 MG/ML 10 ML VIAL ONE (13:44)
[2018-08-22] MEDS ORDERED: ROCURONIUM BROMIDE 10 MG/ML 5ML VIAL ONE (13:47)
[2018-08-22] MEDS ORDERED: PROPOFOL IV EMULSION 10 MG/ML 20 ML VIAL ONE (13:47)
[2018-08-22] MEDS ORDERED: NEOSTIGMINE 5 MG/5ML SYR ONE (13:47)
[2018-08-22] MEDS ORDERED: SEVOFLURANE INHAL SOLN 250 ML PEN BTL ONE (13:47)
[2018-08-22] MEDS ORDERED: LIDOCAINE HCL 2% LOCAL INJ 5 ML SDV VIAL INJ ONE (13:47)
[2018-08-22] MEDS ORDERED: EPHEDRINE SULFATE INJ 50 MG/10 ML SYR ONE (13:47)
[2018-08-22] MEDS ORDERED: ONDANSETRON HCL INJ 2MG/ML 2ML 2 MG/ML VIAL ONE (13:47)
--- NOTE | 2018-08-22 14:59 | Consultation ---
DATE OF CONSULTATION: REQUESTING PHYSICIAN: Dr. Cheng. REASON FOR CONSULT: Preop clearance. HISTORY OF PRESENT ILLNESS: Ms. Hannah is a 73-year-old lady with past medical history as listed below, presented with complaints of abdominal pain. The patient reportedly started experiencing abdominal pain since yesterday. The patient states it is in the lower abdomen and she also has some nausea and vomiting. Apparently, vomited about 3-4 times yesterday. The patient reportedly also has had decreased appetite and generalized weakness for the last couple of weeks. She reportedly was also hallucinating and she was brought to the hospital. CT scan of her abdomen showed stranding of the right lower quadrant with inflammatory changes. The appendix was not visualized. The patient states that she still has some lower abdominal discomfort, although it is a little bit better than yesterday. She has a history of CABG, though denies any chest pain, shortness of breath, or palpitations. REVIEW OF SYMPTOMS: CONSTITUTIONAL: She has some fatigue and weakness. HEENT: No headache, blurring of vision, seizure, or syncope. CARDIOVASCULAR: No chest pain, dyspnea, orthopnea, or PND. RESPIRATORY: No cough or fever. GI: She has abdominal pain, nausea, and vomiting. No diarrhea. ALLERGIES: LEVOFLOXACIN. MEDICATIONS: See list. PAST MEDICAL HISTORY: 1. History of CAD, status post CABG at [facility] in 2014. 2. History of hypertension. 3. History of diabetes mellitus. 4. History of subcutaneous ICD. 5. History of chronic kidney disease. 6. History of hyperlipidemia. 7. History of CVA. PAST SURGICAL HISTORY: 1. CABG at [facility] in 2014. 2. History of hip surgery. 3. History of bilateral knee surgery. 4. History of hernia repair. 5. History of fistula of her left forearm. SOCIAL HISTORY: Does not smoke or drink. FAMILY HISTORY: Noncontributory. PHYSICAL EXAMINATION: GENERAL: Slightly obese lady, alert, oriented, not in any obvious distress. VITAL SIGNS: Heart rate is 99, blood pressure 119/58, respiratory rate is 18, and temperature is 96.8. HEENT: Atraumatic. NECK: No JVD, bruit, thyromegaly, or lymphadenopathy. CARDIOVASCULAR: First and second heart sounds heard. A 2/6 systolic murmur heard at the left sternal border. CHEST: Decreased air entry at the bases. No adventitious sounds appreciated. ABDOMEN: Soft. Mild lower quadrant tenderness. EXTREMITIES: No edema. LABORATORY DATA: Sodium is 132, potassium 5.0, chloride 106, bicarb 25, BUN is 55, creatinine 3.0, and glucose is 171. Hemoglobin is 11.1, hematocrit 34.6, platelets 169, and white count is 15.3. CT of abdomen shows limited evaluation, significant stranding in the right lower quadrant could reflect inflammatory changes. However, appendix was not identified. Appendicitis is possible. EKG shows sinus rhythm at 97 beats per minute, normal axis, right bundle-branch block, left ventricular hypertrophy, Q-waves in V2, secondary ST-T changes. IMPRESSION: 1. Abdominal pain. 2. Coronary artery disease, history of coronary artery bypass graft. 3. History of implantable cardioverter-defibrillator placement. 4. History of chronic kidney disease. 5. Hypertension. 6. Diabetes mellitus. 7. History of history of congestive heart failure. 8. History of cerebrovascular accident. PLAN: 1. The patient has lower abdominal pain of uncertain etiology. 2. The patient has multiple cardiac issues, they are stable at current time. 3. Get echocardiogram to assess LV function and valvular function. 4. Currently, the patient is n.p.o. She has been on multiple medications at home. Blood pressure is on the lower side. Okay to hold off on antihypertensives for now. We will restart them as her blood pressure goes up. 5. Get echocardiogram to assess LV function and valvular function. 6. The patient needs to go for surgery, she can proceed. The patient is moderate risk due to underlying condition, but currently stable. Restart aspirin and statin. No contraindication. I have discussed my impression and plan of management with the patient. As always, I appreciate and thank you very much for your referrals. MD LISA Otoole/GEOVANI /[id number]
--- NOTE | 2018-08-22 15:34 | NUR ---
CASE MANAGEMENT INITIAL ASSESSMENT Gyroscopic Engineering Technician to bedside to discuss plan of care with patient/family. CM/SW role and care transitions discussed. Anticipated discharge plan discussed along with duration of care. CM/SW discussed patients right to make decisions in care. CM/SW work hours given. Patient lives: [place] Admit/Transfer: ER Hospital/ER visits since last admit:0 POA/Emergency contact: RYAN BROWN [phone] Current/Previous Home Health: NONE PCP/Follow-up Care: DR KENYETTA NAVA Current/Previous DME: ROLLATOR, WALKER, WHEELCHAIR, CANE Medications (referring to index hospitalization or the first time you were in the hospital) a. Were changes made in your medications when you were in the hospital on [date of index hospitalization]? N/A Note: If no or not sure, please skip to question d b. Did you understand the changes? Yes No Explain: c. Were you able to obtain your new medications right away? Yes No n/a SNF only Explain: d. Were you able to take your medications like the doctor wanted you to? TAKING ROUTINE MEDS APPROPRIATELY e. Did the hospital give you an accurate, easy to understand list of medications when you left? N/A Scale of 1-10 how comfortable does patient feel with disease management in outpatient settin Other Services: PROVIDER SERVICES 4 HRS ON WEDNESDAY-WED AND WEDNESDAY Employment Status: RETIRED Areas of Concerns: MAY NEED SNF PRIOR TO RETURN HOME Referral Needs: POSS SNF Education Needs: TO BE DETERMINED IMM/GOODMAN given and signed (if applicable): IMM ON ADMIT Goal for discharge:DC TO SNF/HOME WITH HOME HEALTH WHEN MEDICALLY STABLE CM/SW left business card at the bedside with contact information. Name and number was also written on the patients whiteboard. Patient verbalized understanding of discussion. CM will follow-up with ongoing discharge and transition of care needs.
[2018-08-22] MEDS: ACETAMINOPHEN 1000 MG/100 ML IV PRN (16:37)
[2018-08-22] MEDS ORDERED: DEXTROSE 5% 1,000 ML IV SCH (17:15)
--- NOTE | 2018-08-22 17:35 | NUR ---
Nutrition Screen Note RD Recommendation for Physician: - When medically feasiable, ADAT to goal of 1800 ADA, GI Soft Plan of Care: RD following, monitoring for tolerance and adequacy Nutrition reason for involvement: Nutrition Risk Trigger- MST Primary Diagnose(s): appendicitis, abdominal pain, CKD PMH: DM per pt, no H&P available Ht: 70 in Wt: 202 lb BMI: 29 kg/m2 IBW: [address] Assessment: (08/22) 73 YOF admitted for abdominal pain found ot have appendicitis, pt seen today per MST screen. Pt discussed during AM rounds. Pt reports poor intake x 2-3 days with intermittent N/V without and no constipation or diarrhea SHIPWRIGHT. pt reports UBW of 201#, no wt loss noted. Pt reports that she follows a diabetic diet at home. Chart reviewed. Skin intact. LBM 08/21. Labs and meds reviewed. Will monitor and continue to follow. Current Diet: NPO Malnutrition Evaluation (08/22/18) The patient does not meet criteria for a specified degree of malnutrition at this time. Will re-evaluate at follow-up as appropriate. Diet Education Needs Assessment: Diet education not indicated. Nutrition Care Level: Low Signed: Soni Amos RD, LD, CNSC
--- NOTE | 2018-08-22 17:38 | NUR ---
IMM SIGNED BY PT'S SON AT BEDSIDE, PT UNABLE TO SIGN DUE TO PAIN EXPLAINED AND PLACED IN CHART COPY TO PT IN CARE TRANSITION FOLDER
[2018-08-22] MEDS ORDERED: SODIUM CHLORIDE 0.9% 1000ML 1,000 ML IV SCH (19:15)
--- NOTE | 2018-08-22 19:16 | NUR ---
WALKING ROUNDS PERFORMED, RECEIVED PT LAYING SEMI FOWLERS IN BED, AAOX3, RR EVEN AND NON-LABORED, O2 BY NC AT 2L. LEFT PT LAYING SEMI FOWLERS IN BED, BED IN LOW LOCKED POSITION, SIDE RAILS UPX2, CALL LIGHT AND PHONE WITHIN REACH. FAMILY AT BEDSIDE.
[2018-08-22] MEDS ORDERED: BUPIVACAINE HCL 0.5% INJ 30 ML VIAL INJ ONE (19:48)
--- NOTE | 2018-08-22 19:48 | NUR ---
ALL JEWELRY REMOVED BY PATIENT AND GIVEN TO SON. DENTURES REMOVED AND PLACED IN DENTURE CUP AT BEDSIDE. CONSENT FORM SIGNED.
--- NOTE | 2018-08-22 19:55 | NUR ---
PT TRANSPORTED BY HOSPITAL BED TO OR FOR PROCEDURE. FAMILY AT BEDSIDE.
[2018-08-22] MEDS ORDERED: SUGAMMADEX SODIUM 200 MG/2 ML VIAL IV ONE ×2 (21:32→21:33)
[2018-08-22] MEDS ORDERED: LABETALOL HCL 20 MG/4 ML SYRINGE IV ONE (21:54)
[2018-08-22] MEDS ORDERED: HYDROMORPHONE 2MG/ML 2 MG/ML ML ONE (22:07)
--- NOTE | 2018-08-22 22:14 | NUR ---
RECEIVED REPORT FROM [employer] PT TO TRANSFER TO ICU POST SURGERY TO ROOM 190. PT BELONGINGS PACKED UP AT THIS TIME AND TRANSFERRED TO ROOM 190
--- NOTE | 2018-08-22 22:25 | NUR ---
RECEIVED FROM PACU IN BED, RESPONDS TO VERBAL STIMULI WITH APPROPRIATE RESPONSE. BANDAID X 3 TO ABDMONIAL TROCHAR SITES. CASTRO TO BEDSIDE DRAINAGE WITH CLEAR YELLOW URINE. NS TO RIGHT FOREARM, PLACED ON PUMP AT 125 CC/HR
[2018-08-23] VITALS (25 sets, daily range): BP systolic 87–190; BP diastolic 49–93
[2018-08-23] MEDS: CEFEPIME 2 GM/NS 0.9% 100 ML 100 ML IV SCH ×2 (00:09→11:58)
[2018-08-23] MEDS: METRONIDAZOLE 500MG/NS 100ML 100 ML IV SCH ×4 (00:09→18:37)
[2018-08-23] MEDS: SODIUM CHLORIDE 0.9% 1000ML 1,000 ML IV SCH ×3 (00:53→14:00)
--- NOTE | 2018-08-23 02:06 | Consultation ---
DATE OF CONSULTATION: 08/22/2018 HISTORY OF PRESENT ILLNESS: The patient is a 73-year-old female, who presents with complaints of lower abdominal pain, she has had for about 3 days. Pain has gotten progressively worse and she has low-grade fever. CT of the abdomen and pelvis was done, which revealed a greatly enlarged appendix with inflammation around it. There is also question of erosion of a lap-band, but she has no complaints referable to the upper abdomen. She has a lap-band in place, but is not inflated. PAST MEDICAL HISTORY: Significant for diabetes and hypertension. PAST SURGICAL HISTORY: She has had multiple previous surgeries including a lap-band, coronary artery bypass surgery. She had repair of a hernia with closure of gastrocutaneous fistula. ALLERGIES: SHE HAS ALLERGY TO LEVAQUIN. MEDICATIONS: Her medications at home are listed in the chart. FAMILY HISTORY: Noncontributory. SOCIAL HISTORY: The patient does not smoke cigarettes or drink alcohol. REVIEW OF SYSTEMS: As stated above, she did not have any weight loss. PHYSICAL EXAMINATION: GENERAL: The patient is awake and alert, in no distress. VITAL SIGNS: normal. She has temperature of 100.2. HEENT: Reveals no scleral icterus. NECK: No masses. LUNGS: Equal breath sounds. Clear bilaterally. CARDIAC: Regular rate and rhythm. ABDOMEN: Tender with signs of peritonitis, greatest in the lower abdomen in midline and to the right. There is no mass. There is no distention. There are healed surgical wounds. EXTREMITIES: Have slight edema and are warm. NEUROLOGIC: Grossly intact. LABORATORY TESTS: The white blood cell count on admission was 4.6, but the repeat is 15.4; hemoglobin 11; hematocrit 35. Chemistries, elevated BUN of 55 and creatinine 3.07. ASSESSMENT: A 73-year-old female with findings most suggestive of acute appendicitis based on her exam and findings seen on CT scan. She will benefit from appendectomy schedule for today. She does have abnormality of her lap-band with reported erosion in to the stomach, but this is not symptomatic at this time. I think this need not be addressed with this surgery. The proposed surgery was explained to the patient including the risks, benefits, and alternatives. She understands. She has had the opportunity to ask questions. Thank you for asking me to see Ms. Hannah. Anthony W MD ROBINA Cotton/GEOVANI /[id number]
[2018-08-23] MEDS: MORPHINE SULFATE INJ 4 MG/ML INJ 1ML IV PRN ×3 (04:41→14:00)
[2018-08-23 04:55] LABS: BASOPHILS # (AUTO) 0.1 (0.0-0.1); BASOPHILS % 0.7 % (0.0-1.0); EOSINOPHILS % 0.2 % (0.0-6.0); HEMATOCRIT 38.9 % (34.2-44.1); HEMOGLOBIN 12.1 g/dL (12.0-16.0); LYMPHOCYTES # (AUTO) 0.9 (1.0-3.2); MEAN CORPUSCULAR HEMOGLOBIN 30.5 pg (28-32); MEAN CORPUSCULAR HGB CONC 31.1 g/dL (31-35); MONOCYTES # (AUTO) 0.6 (0.2-0.8); MONOCYTES % 5.8 % (4.4-11.3); NEUTROPHILS # (AUTO) 8.7 (2.1-6.9); NEUTROPHILS % 83.8 % (38.7-80.0); PLATELET COUNT 174 x10e3/uL (140-360); RED BLOOD COUNT 3.97 x10e6/uL (3.6-5.1); RED CELL DISTRIBUTION WIDTH 12.7 % (11.7-14.4)
[2018-08-23 05:17] LABS: ALBUMIN 2.2 g/dL (3.5-5.0); ALBUMIN/GLOBULIN RATIO 0.6 (0.8-2.0); ANION GAP 15.6 mmol/L (8-16); CALCIUM 9.3 mg/dL (8.4-10.2); CREATININE, SERUM 3.6 mg/dL (0.57-1.11); POTASSIUM 4.6 mmol/L (3.5-5.1)
[2018-08-23] MEDS: INSULIN LISPRO 100 UNIT/1 ML 3ML VIAL SQ SCH ×5 (05:32→21:27)
--- NOTE | 2018-08-23 05:37 | Consultation ---
DATE OF CONSULTATION: 08/22/2018 Consultation Note HISTORY OF PRESENT ILLNESS: This is a 73-year-old white lady, who is known to our Nephrology Service, has an underlying history of chronic kidney disease, stage 4, has history of congestive heart failure, coronary artery bypass surgery in 2013, history of hypertension, atrial fibrillation, prior CVA, has been off dialysis now, was previously on dialysis, has a left wrist AV fistula, had an AICD placement, has had bilateral knee replacement, has been admitted with shortness of breath and abdominal pain. Renal has been consulted for management of underlying kidney failure. Workup included CT scan of the abdomen and pelvis, this was done without contrast. Please read the report, but there is an erosion of lap-band into the gastric lumen. Dr. Cheng is on the case. So, there were some abnormal findings on CT scan. Also, had a CT chest, please see official report, shows severely dilated esophagus with substantial fluid in the mid and distal portions. The patient otherwise comfortable, lying supine. Denies any nausea or vomiting. ALLERGIES: LEVAQUIN. CURRENT MEDICATIONS: The patient is on cefepime. She is on D5 water at 100 mL an hour. She is on metronidazole, received normal saline 1 liter bolus. She is on Humalog insulin, morphine p.r.n., and ondansetron p.r.n. SOCIAL HISTORY: Does not smoke or drink. FAMILY HISTORY: Significant for hypertension. PHYSICAL EXAMINATION: GENERAL: On exam, awake and alert, lying supine. VITAL SIGNS: Blood pressure 119/58, pulse rate 99, afebrile. HEAD AND NECK: Cornea clear. Oral mucosa moist. Neck veins flat. LUNGS: Bilaterally clear. HEART: S1 and S2 audible. ABDOMEN: Otherwise, soft and nontender. No deep palpation done. EXTREMITIES: Lower extremity examination shows no edema. IMPRESSION AND PLAN: 1. Mild hyponatremia and hypo-osmolar state. I will discontinue existing D5 water. 2. Npadq-ob-wzhcqne kidney failure, has been off dialysis for several months now. We will start normal saline, gentle IV hydration, and monitor the patient's kidney function, urine output review. Laboratory tests ordered. Discussed with RN. Discussed with family member. Honorio Iyer MD SAK/GEOVANI /[id number]
--- NOTE | 2018-08-23 07:17 | Operative Report ---
DATE OF PROCEDURE: 08/22/2018 SURGEON: Anthony Cotton MD PREOPERATIVE DIAGNOSIS: Acute appendicitis. POSTOPERATIVE DIAGNOSIS: Acute perforated appendicitis with peritonitis. PROCEDURES: Diagnostic laparoscopy and laparoscopic appendectomy. PEST CONTROL PILOT: None. ANESTHESIA: General endotracheal. INDICATIONS AND FINDINGS: The patient is a [id number]-female, admitted to the hospital with complaints of severe lower abdominal pain, which she has had for 3 days. Workup suggests acute appendicitis. Certainly based on the acutely finding of the perforated appendicitis with peritonitis involving the entire lower abdomen, there was some fecal contamination of the area around the appendectomy. There was catheter seen from previous lap-band placement, which was not directly involved with the inflammatory process. The area of the perforation was just beyond the base of the appendix. TECHNIQUE: After adequate general endotracheal anesthesia with the patient in the supine position, the abdomen was prepped and draped in sterile fashion with ChloraPrep solution. Below into the left of the umbilicus, skin and subcutaneous tissues were infiltrated with 0.5% Marcaine. Transverse incision was made. Abdominal wall was elevated and Veress needle was introduced. Pneumoperitoneum was then created. A 10-mm trocar and cannula were then passed through this wound. Laparoscopic camera was introduced. Initial laparoscopy revealed inflammatory process involving the lower abdomen with some feculent material seen. A 5-mm trocar and cannula were placed in the right upper quadrant and a 12-mm trocar and cannula were placed just medial to the umbilicus on the right side. These were placed under vision. The small bowel was adherent over the area where it was found an inflamed appendix. As the fibrinous adhesions were broken up, it was found that there was a perforation of the appendix just beyond its base. There was a fecalith, which was removed. The area of inflammation was gently dissected free until the base of appendix could be seen. Window was created between the base of the appendix and mesoappendix. The base of the appendix was divided across the cecum with an EndoGIA stapler. The mesoappendix was then divided with the LigaSure device, freeing the appendix completely. There was some fecal contamination from the appendix, from the area of perforation. Appendix was placed into an Endopouch and brought out through the 12-mm cannula site. The catheter from the lap-band was seen. This was found extending to the right side of the abdomen and it was seen to go retroperitoneal and was adherent. It was not directly involved in the inflammatory process. The peritoneal cavity was irrigated with large volume of warm saline until the aspirate was clear. All fluid was aspirated and inspected for hemostasis, which was seen to be adequate. Instruments and cannulas were then removed. Pneumoperitoneum was evacuated. The wounds were then closed. Fascia in the larger trocar wound was closed with 0 Vicryl. Skin of all wounds was closed with chinmay. Sterile dressing was applied to each wound. The patient tolerated the procedure well. Estimated blood was 25 mL. There were no complications. All counts were correct. The patient was taken to the recovery room in satisfactory condition. MD ROBINA Schultz/GEOVANI /[id number]
[2018-08-23] MEDS ORDERED: DIGOXIN INJ 0.25 MG/ML 2 ML AMP IV ONE (08:15)
[2018-08-23 10:59] LABS: ANISOCYTOSIS SLIGHT; PLATELET ESTIMATE ADEQUATE; PLATELET MORPHOLOGY COMMENT NORMAL; RBC MORPHOLOGY COMMENT NORMAL
[2018-08-23] MEDS: HYDROCODONE/APAP 5MG-325MG TAB PO PRN (12:29)
[2018-08-23] MEDS: METOPROLOL TARTRATE INJ 1 MG/ML VIAL IV PRN ×2 (12:29→20:00)
--- NOTE | 2018-08-23 15:31 | NUR ---
called dr augustine and dr velasquez regarding pt newonset afib and temp. s/o garcia
--- NOTE | 2018-08-23 15:40 | NUR ---
notified dr augustine of afib and hr and temp. orders recvd and being completed.
[2018-08-23] MEDS ORDERED: AMIODARONE HCL 360MG 200 ML IV SCH ×2 (15:45→18:00)
[2018-08-23] MEDS ORDERED: AMIODARONE HCL 900 MG in DEXTROSE 5% 500ML 500 ML IV SCH (15:45)
[2018-08-23] MEDS ORDERED: ACETAMINOPHEN 1000 MG/100 ML IV PRN (15:45)
[2018-08-23] MEDS ORDERED: AMIODARONE HCL 150MG 100 ML IV ONE (15:45)
[2018-08-23] MEDS ORDERED: AMIODARONE HCL 100 ML IV ONE (16:00)
[2018-08-23] MEDS ORDERED: SODIUM CHLORIDE 0.9% 1000ML 1,000 ML IV SCH (20:00)
--- NOTE | 2018-08-23 20:21 | NUR ---
CONSULT CALLED FOR DR RM, SPOKE WITH PIO AT ANSWERING SERVICE, AWAITING RETURN CALL
--- NOTE | 2018-08-23 21:30 | NUR ---
DR RM AT BEDSIDE, PATIENT EVALUATED AND LABS REVIEWED. NEW ORDERS NOTED
[2018-08-23] MEDS: MEROPENEM 500MG/ NS 50ML 500 MG in MEROPENEM 500MG/ NS 50ML 50 ML IV SCH (22:25)
[2018-08-23] MEDS: VANCOMYCIN 1GM/NS 250 ML 250 ML IV SCH (22:25)
[2018-08-24] VITALS (26 sets, daily range): BP systolic 107–182; BP diastolic 36–80
--- NOTE | 2018-08-24 03:15 | NUR ---
patient axillary temp 104.6 on routine rounds, IV acetaminophen given, ice bags to axillae and groin, cooling blanket applied. patient with definite change in mental status and resp status. ABG done.
--- NOTE | 2018-08-24 03:26 | NUR ---
patient core temp per rectal probe now 106.9 - rapid response called.
--- NOTE | 2018-08-24 03:29 | Consultation ---
DATE OF CONSULTATION: REASON FOR CONSULTATION: who had appendicitis, concerned about early sepsis. HISTORY OF PRESENT ILLNESS: This patient who is a very pleasant 73-year-old female with history of chronic kidney disease, comes in with abdominal pain. The patient was admitted on August 21 with abdominal pain. She was diagnosed with appendicitis, ruptured appendix, and underwent surgery on August 22. Today, she had arrhythmia and fever while she is taking cefepime and Flagyl, so I was asked to see her. The patient is alert, but does not provide meaningful information. The patient has been having abdominal pain, nausea, and vomiting for 2-3 days, so she came here. She was hallucinating. There is no family at present time. History was taken mainly from the chart. She does have history of coronary artery disease, history of CABG, hypertension, diabetes mellitus, ICD, chronic kidney disease. At one time, she was on dialysis, but not now. History of CVA. PAST SURGICAL HISTORY: CABG, hip surgery, knee surgery, hernia repair, fistula of the left upper extremity. SOCIAL HISTORY: There is no smoking, drug abuse, or alcohol abuse. FAMILY HISTORY: Otherwise, hypertension. REVIEW OF SYSTEMS: Could not be obtained. PHYSICAL EXAMINATION: GENERAL: She is alert, noncommunicative. HEENT: She is not icteric. NECK: Supple. CHEST: Clear. HEART: S1, S2. . ABDOMEN: Soft, distended. EXTREMITIES: No edema. SKIN: No rash. LABORATORY DATA: Reviewed. Her white count is 10.34, hemoglobin 12. Sodium 132, potassium 4.6, and creatinine 3.6. IMPRESSION AND PLAN: Fever and chills in a patient who underwent appendectomy, had appendicitis ruptured. We will put on meropenem 500 q.24. We will obtain blood cultures. We will put her on vancomycin 1 g q.48, obtain a trough with the 2nd dose. We will follow up clinically. We will see how she will do. Follow up CBC, Chem panel, vancomycin trough. Further recommendations to follow. MD RODRIGO Balderas/GEOVANI /[id number]
--- NOTE | 2018-08-24 03:35 | NUR ---
Dr. Cotton notified, discussed on telephone with Dr. Elizalde. Labs ordered but no other new orders
[2018-08-24 03:52] LABS: ABG HCO3 18 mmol/L (23-28); ABG PCO2 31 mmHg (41-51); ABG PH 7.36 (7.31-7.41)
[2018-08-24 03:54] LABS: ABG PO2 86 mmHg (80-105)
--- NOTE | 2018-08-24 04:05 | NUR ---
patient very difficult stick, blood obtained at this time and taken to lab
[2018-08-24 04:10] LABS: BASOPHILS % 0.1 % (0.0-1.0); HEMATOCRIT 34.3 % (34.2-44.1); LYMPHOCYTES # (AUTO) 0.7 (1.0-3.2); LYMPHOCYTES % 4.3 % (18.0-39.1); MEAN CORPUSCULAR HEMOGLOBIN 30.1 pg (28-32); MEAN CORPUSCULAR HGB CONC 32.1 g/dL (31-35); MONOCYTES # (AUTO) 0.6 (0.2-0.8); MONOCYTES % 3.8 % (4.4-11.3); NEUTROPHILS % 91.4 % (38.7-80.0); PLATELET COUNT 227 x10e3/uL (140-360); RED BLOOD COUNT 3.65 x10e6/uL (3.6-5.1); RED CELL DISTRIBUTION WIDTH 13.1 % (11.7-14.4)
[2018-08-24 04:28] LABS: ALBUMIN 1.9 g/dL (3.5-5.0); ALBUMIN/GLOBULIN RATIO 0.5 (0.8-2.0); CALCIUM 8.5 mg/dL (8.4-10.2); CREATININE, SERUM 4.3 mg/dL (0.57-1.11)
--- NOTE | 2018-08-24 05:04 | NUR ---
REMAINS ON COOLING BLANKET - RECTAL TEMP NOW 103.5
--- NOTE | 2018-08-24 06:20 | NUR ---
RECTAL TEMP 99.0 - COOLING BLANKET TURNED OFF
--- NOTE | 2018-08-24 08:30 | NUR ---
al with id to see pt this morning updated on status, no changes in poc. dotty making rounds, updated on status, no changes in poc.
[2018-08-24] MEDS: INSULIN LISPRO 100 UNIT/1 ML 3ML VIAL SQ SCH ×4 (08:33→21:10)
--- NOTE | 2018-08-24 10:25 | NUR ---
CALLING DR ISLAS REGARDING URINE OUTPUT
--- NOTE | 2018-08-24 11:07 | NUR ---
DR MOREIRA MAKING ROUNDS, UPDATED ON CURRENT STATUS. ORDERS RECVD BEING COMPLETED.
--- NOTE | 2018-08-24 12:30 | NUR ---
CALLED DR ISLAS SECOND TIME, NO ANSWER AT THIS TIME TO UPDATED ON LOW UA OUTPUT
[2018-08-24] MEDS: AMIODARONE HCL 200 MG TAB PO SCH (16:15)
[2018-08-24] MEDS ORDERED: BUMETANIDE INJ 0.25MG/ML 4ML VIAL IV ONE (16:56)
[2018-08-24] MEDS ORDERED: ALBUMIN 5% 0.05 GM/ML BTL IV ONE (17:00)
[2018-08-24] MEDS ORDERED: DEXTROSE 5%/0.45% SOD CHL 1,000 ML IV SCH (17:00)
[2018-08-24] MEDS ORDERED: ALBUMIN 5% 250ML 250 ML IV ONE (17:15)
[2018-08-24] MEDS: SODIUM CHLORIDE 0.9% 1000ML 1,000 ML IV SCH (17:46)
--- NOTE | 2018-08-24 17:51 | Diagnostic Imaging Report ---
Exam: Head CT without contrast History: Altered mental status, rule out CVA Comparison studies: Head CT 08/21/2018. Technique: Axial images were obtained from the skull base to the vertex. Coronal and sagittal images reconstructed from the axial data. Dose modulation, iterative reconstruction, and/or weight based adjustment of the mA/kV was utilized to reduce the radiation dose to as low as reasonably achievable. Radiation dose: Total DLP: 1036 mGy*cm. Estimated effective dose: DLP x 0.015 Intravenous contrast: None Findings: Scalp: No abnormalities. Bones: No fractures, blastic or lytic lesions. Brain sulci: Appropriate for age. Ventricles: Mild compensatory dilatation of the lateral and third ventricles. No hydrocephalus. Extra-axial spaces: No masses, no fluid collection. Parenchyma: Dilation of the posterior fossa is limited by artifacts but without gross abnormalities. No mass, acute hemorrhage or acute cortical vascular insults. A few scattered hypodensities in the supratentorial white matter are nonspecific but most compatible with chronic small vessel ischemic changes. Sellar/suprasellar region: No abnormalities. Craniocervical junction: Patent foramen magnum. No Chiari one malformation. Incidental findings: Atherosclerotic calcifications in the carotid siphons an in the right intradural vertebral artery. IMPRESSION: 1. Evaluation of the posterior fossa limited by artifacts but without gross acute abnormalities. No acute intracranial abnormalities in the remaining brain. 2. Mild chronic microvascular ischemic changes. Signed by: Dr. Anthony Gann M.D. on 08/24/2018 5:48 PM
--- NOTE | 2018-08-24 19:01 | NUR ---
REPORT GIVEN, NO QUESTIONS AT THIS TIME.
[2018-08-24] MEDS: MEROPENEM 500MG/ NS 50ML 500 MG in MEROPENEM 500MG/ NS 50ML 50 ML IV SCH (21:13)
[2018-08-25] VITALS (26 sets, daily range): BP systolic 147–191; BP diastolic 37–82
[2018-08-25] MEDS: SODIUM CHLORIDE 0.9% 1000ML 1,000 ML IV SCH ×2 (00:05→13:15)
[2018-08-25] MEDS: MORPHINE SULFATE INJ 4 MG/ML INJ 1ML IV PRN ×4 (00:12→10:50)
[2018-08-25] MEDS ORDERED: METOPROLOL TARTRATE INJ 1 MG/ML VIAL ONE (01:21)
[2018-08-25] MEDS: METOPROLOL TARTRATE INJ 1 MG/ML VIAL IV PRN ×2 (01:21→05:37)
[2018-08-25] MEDS: HYDRALAZINE HCL 20 MG/ML VIAL IV PRN ×3 (02:01→10:27)
[2018-08-25 05:03] LABS: ALBUMIN 2.1 g/dL (3.5-5.0); ALBUMIN/GLOBULIN RATIO 0.6 (0.8-2.0); ANION GAP 19.3 mmol/L (8-16); CALCIUM 8.8 mg/dL (8.4-10.2); CREATININE, SERUM 4.14 mg/dL (0.57-1.11); POTASSIUM 4.3 mmol/L (3.5-5.1)
[2018-08-25 07:03] LABS: HEMATOCRIT 31.7 % (34.2-44.1); HEMOGLOBIN 10.5 g/dL (12.0-16.0); MEAN CORPUSCULAR HEMOGLOBIN 30.9 pg (28-32); MEAN CORPUSCULAR HGB CONC 33.1 g/dL (31-35); MEAN CORPUSCULAR VOLUME 93.2 fL (81-99); PLATELET COUNT 198 x10e3/uL (140-360); RED CELL DISTRIBUTION WIDTH 13.4 % (11.7-14.4)
--- NOTE | 2018-08-25 07:20 | NUR ---
NOTIFIED DR ISLAS OR LABS, ORDERS RECVD.
[2018-08-25] MEDS: INSULIN LISPRO 100 UNIT/1 ML 3ML VIAL SQ SCH ×4 (07:30→21:28)
--- NOTE | 2018-08-25 07:30 | NUR ---
DR WELSH MAKING ROUNDS, UPDATED ON STATUS AND CHANGES IN LABS. ORDERS RECVD AND TO BE COMPLETED.
[2018-08-25] MEDS: CLONIDINE HCL 0.3MG/24 HR PATCH TOP SCH (08:00)
--- NOTE | 2018-08-25 08:00 | NUR ---
AL MAKING ROUNDS, UPDATED STATUS AND POC.
[2018-08-25] MEDS ORDERED: LIDOCAINE HCL 1% LOCAL INJ 20 ML VIAL ONE (09:42)
--- NOTE | 2018-08-25 09:42 | Diagnostic Imaging Report ---
EXAM: CT Chest, Abdomen and Pelvis WITHOUT contrast INDICATION: Sepsis COMPARISON: CT chest abdomen pelvis, 08/21/2018 TECHNIQUE: Chest, abdomen and pelvis were scanned utilizing a multidetector helical scanner from the lung apex to the pubic symphysis without administration of IV contrast. Absence of intravenous contrast decreases sensitivity for detection of focal lesions and vascular pathology. Coronal and sagittal reformations were obtained. Routine protocol was performed. Dose modulation, iterative reconstruction, and/or weight based adjustment of the mA/kV was utilized to reduce the radiation dose to as low as reasonably achievable. IV CONTRAST: None. ORAL CONTRAST: None RADIATION DOSE: Total DLP: 1038.52 mGy*cm Estimated effective dose: (DLP x 0.015 x size factor) mSv COMPLICATIONS: None FINDINGS: LINES and TUBES: Again noted is a gastric band with tubing extending to a port in the anterior abdominal wall. Again noted is a generator device in the left lateral abdominal wall with a lead extending anterior to the sternum. Barahona catheter in the urinary bladder. LUNGS AND AIRWAYS: Since last exam, extensive right lower lobe atelectasis with air bronchograms has developed. Atelectasis with air bronchograms in the left lower lobe is also present to a lesser degree. Trachea and main bronchi are clear. PLEURA: Trace right pleural effusion has developed since last exam. No pneumothorax. HEART AND MEDIASTINUM: The thyroid gland is normal. No mediastinal, hilar or axillary lymphadenopathy. The heart is normal in size.. There is no pericardial effusion. The thoracic aorta is atherosclerotic with calcified plaques. No aortic aneurysm. Main pulmonary artery is dilated measuring 3.5 cm, nonspecific finding but may be seen with pulmonary hypertension. As noted on previous exam, the esophagus remains distended with fluid and air. HEPATOBILIARY: Much of the unenhanced liver is obscured by artifact from the generator device in the left abdomen. No focal hepatic lesions. No biliary ductal dilation. GALLBLADDER: The gallbladder is distended. No radiopaque calculi seen. No wall thickening. SPLEEN: No splenomegaly. PANCREAS: No focal masses or ductal dilatation. ADRENALS: No adrenal nodules KIDNEYS/URETERS: No hydronephrosis. There is an extrarenal pelvis on the right. No cystic or solid mass lesions. No stones. GI TRACT: There is a fluid-filled structure adjacent to the gallbladder (series 2, image 65) likely represents distention of the duodenum. There is no obvious dilatation of the small bowel. Previously administered contrast has reached the cecum. The right lower quadrant area is largely obscured by streak artifact. The appendix is not conspicuously visualized on the current exam. Mildly dilated air and fluid-filled small bowel in the midabdomen may represent postoperative ileus. PELVIC ORGANS/BLADDER: Urinary bladder is obscured by streak artifact from right hip hardware. A Barahona catheter is present no obvious mass or fluid collection in the unobscured portions of the pelvis. LYMPH NODES: No dominant lymph node mass in the abdomen, retroperitoneum or pelvis. VESSELS: Unenhanced abdominal aorta is atherosclerotic with extensive plaque formation. No aneurysm. PERITONEUM / RETROPERITONEUM: A fluid collection is developed in the right lower quadrant measuring approximately 4.8 x 5.7 cm transversely (series 2, image 103) and 9.4 cm on coronal image (series 502, image 57). The fluid collection is contiguous with the portion of the gastric band tubing. There is no air in this fluid collection. There is no obvious evidence for pneumoperitoneum. BONES: No acute or suspicious bony lesions. Right hip arthroplasty hardware noted. Scoliosis and degenerative change seen in the lumbar spine. Wire sternotomy sutures are present. SOFT TISSUES: Superficial surrounding soft tissue shows trace air in the left anterior abdominal wall musculature (series 2, image 79). This is new since the previous exam. There are new skin chinmay over the lower abdomen and pelvis. IMPRESSION: 1. Bilateral lower lobe consolidation with air bronchograms, greater on the right, developing since previous exam. This is compatible with possible pneumonia or aspiration. 2. Enlarging collection of fluid in the right lower quadrant of the abdomen. There is no air within this fluid. This may represent increasing ascites, postoperative fluid or may be fluid tracking along the adjacent gastric band catheter. 3. Distention of the third portion of the duodenum. This may be a transient finding or may represent ileus. There are mildly distended air and fluid-filled small bowel loops in the midabdomen which may represent ileus, possibly postoperative. 4. Postoperative status since previous exam with skin chinmay over the lower abdomen and pelvis and minimal air in the anterior pelvic wall. Signed by: Dr. Dick Reynoso M.D. on 08/25/2018 9:38 AM
--- NOTE | 2018-08-25 09:56 | NUR ---
NOTIFIED DR WELSH OF CT RESULTS, NO NEW ORDERS
[2018-08-25] MEDS: AMIODARONE HCL 200 MG TAB PO SCH ×2 (10:05→17:20)
--- NOTE | 2018-08-25 14:02 | Diagnostic Imaging Report ---
Procedure: Left common femoral vein non-tunneled central venous catheter and non-tunneled hemodialysis catheter placement with ultrasound guidance coupling machine operator: Dr. Kathleen Ruiz Pre-operative diagnosis: Requiring central venous and hemodialysis access. Post-operative diagnosis: Status post central venous and hemodialysis access Sedation: Local Additional Medications: Lidocaine 1% for local anesthesia Estimated blood loss: None Specimens: None Implants: 7 Fr x 16 cm triple lumen non-tunneled central venous catheter 13 Fr x 20 cm trialysis triple lumen non-tunneled hemodialysis catheter TECHNIQUE/FINDINGS: Informed consent was obtained from the patient's healthcare proxy and documented in the medical record after discussion of risks and benefits. The patient was placed in the supine position. Preliminary sonographic evaluation of the right neck confirmed a patent and compressible right internal jugular vein. A permanent sonographic image was stored for the medical record. The neck was then prepped and draped in a standard sterile fashion. Subsequently, 1% lidocaine was infiltrated into the skin and subcutaneous tissues for local anesthesia. Then under continuous sonographic guidance, a 21 gauge needle was advanced into the right internal jugular vein and an .018'' wire was placed, however resistance was encountered with the wire. Repeat attempt was made and the same resistance was present, suggesting possible central venous occlusion. The needle and wire were removed. Subsequently, we performed an ultrasound of the right common femoral vein, which demonstrated a right GSV thrombus near the common femoral vein. Decision made to not attempt right groin access. Preliminary sonographic evaluation of the left groin demonstrated a patent and compressible left common femoral vein. A permanent sonographic image was stored for the medical record. The left groin was then prepped and draped in a standard sterile fashion. Subsequently, 1% lidocaine was infiltrated into the skin and subcutaneous tissues of the left groin for local anesthesia. Then under continuous sonographic guidance, a 21 gauge needle was advanced into the right internal jugular vein and an .018'' wire was placed without resistance. A 5 Fr micropuncture sheath was placed and the existing wire was exchanged for an .035'' wire. The tract was dilated. Then, a 7 Fr x 16 cm triple lumen non-tunneled central venous catheter was advanced. The wire was then removed. Each lumen was tested and showed adequate bidirectional flow. The catheter was secured to the skin with Monocryl, flushed with saline, and covered by a sterile dressing. No evidence of immediate complication. Subsequently, a separate access into the left common femoral vein was performed with a 21 gauge needle and an .018'' wire was placed. A 5 Fr micropuncture sheath was placed and the existing wire was exchanged for an .035'' Amplatz wire. The tract was sequentially dilated. Then, a 13 Fr x 20 cm Trialysis triple lumen non-tunneled hemodialysis catheter was advanced. The wire was then removed. Each lumen was tested and showed adequate bidirectional flow. The catheter was secured to the skin with Monocryl, flushed with saline, and covered by a sterile dressing. No evidence of immediate complication. IMPRESSION: Placement of a left common femoral vein non-tunneled triple lumen central venous and hemodialysis catheters with ultrasound guidance as above. Resistance with advancement of wire in the right internal jugular vein, which may represent central venous stenosis. Thrombosis within the proximal right greater saphenous vein. Above findings were discussed with ICU nursing in person at the time of the procedure on 08/25/2018, who indicated that the findings were understood. Signed by: Dr. Kathleen Ruiz MD on 08/25/2018 1:59 PM
[2018-08-25] MEDS ORDERED: SODIUM BICARBONATE 8.4% SYRING 150 ML in DEXTROSE 5% 1,000 ML IV SCH (17:42)
[2018-08-25] MEDS ORDERED: DEXTROSE 10% 1,000 ML IV PRN (18:30)
[2018-08-25] MEDS: SODIUM BICARBONATE 8.4% SYRING 150 ML in DEXTROSE 5% 1,000 ML IV SCH (19:22)
[2018-08-25] MEDS: VANCOMYCIN 1GM/NS 250 ML 250 ML IV SCH (21:47)
[2018-08-25] MEDS: MEROPENEM 500MG/ NS 50ML 500 MG in MEROPENEM 500MG/ NS 50ML 50 ML IV SCH (21:48)
[2018-08-26] VITALS (22 sets, daily range): BP systolic 123–178; BP diastolic 45–92
[2018-08-26] MEDS: HYDRALAZINE HCL 20 MG/ML VIAL IV PRN ×2 (01:10→09:10)
[2018-08-26 05:07] LABS: BASOPHILS # (AUTO) 0.1 (0.0-0.1); BASOPHILS % 0.2 % (0.0-1.0); HEMATOCRIT 30.4 % (34.2-44.1); HEMOGLOBIN 10.4 g/dL (12.0-16.0); LYMPHOCYTES # (AUTO) 0.9 (1.0-3.2); LYMPHOCYTES % 3.5 % (18.0-39.1); MEAN CORPUSCULAR HEMOGLOBIN 30.6 pg (28-32); MEAN CORPUSCULAR HGB CONC 34.2 g/dL (31-35); MEAN CORPUSCULAR VOLUME 89.4 fL (81-99); MONOCYTES # (AUTO) 1.2 (0.2-0.8); NEUTROPHILS # (AUTO) 22.1 (2.1-6.9); NEUTROPHILS % 89.3 % (38.7-80.0); PLATELET COUNT 211 x10e3/uL (140-360); RED CELL DISTRIBUTION WIDTH 12.9 % (11.7-14.4)
[2018-08-26 05:36] LABS: ALBUMIN 2.3 g/dL (3.5-5.0); ALBUMIN/GLOBULIN RATIO 0.6 (0.8-2.0); ANION GAP 20.8 mmol/L (8-16); CALCIUM 8.6 mg/dL (8.4-10.2); CREATININE, SERUM 3.54 mg/dL (0.57-1.11); MAGNESIUM 1.9 MG/DL (1.3-2.1); PHOSPHORUS 3.4 MG/DL (2.3-4.7); POTASSIUM 3.8 mmol/L (3.5-5.1)
[2018-08-26] MEDS: SODIUM BICARBONATE 8.4% SYRING 150 ML in DEXTROSE 5% 1,000 ML IV SCH ×2 (06:19→17:45)
[2018-08-26] MEDS: INSULIN LISPRO 100 UNIT/1 ML 3ML VIAL SQ SCH ×4 (07:30→23:28)
--- NOTE | 2018-08-26 08:14 | NUR ---
Dr. Mccracken notified of new patient consult
[2018-08-26] MEDS ORDERED: CEFEPIME HCL 1 GM VIAL IV SCH (09:00)
[2018-08-26] MEDS: AMIODARONE HCL 200 MG TAB PO SCH ×2 (09:00→17:10)
[2018-08-26] MEDS: CEFEPIME 1GM/NS 0.9% 50 ML 50 ML IV SCH (09:55)
--- NOTE | 2018-08-26 14:19 | Diagnostic Imaging Report ---
Abdomen, one view dated 08/26/2018 at 12:28 PM. History: NG tube placement. Findings: Only the upper abdomen is included for view. There is a gastric lap band that is likely slipped not in the expected GE junction location. NG tube is present with its tip extending below the diaphragm. IMPRESSION: NG tube below the diaphragm. Signed by: Dr. Chris Gonsalves DO on 08/26/2018 2:16 PM
--- NOTE | 2018-08-26 14:30 | NUR ---
Nutrition Intervention Note RD Recommendation(s) for Physician: -Current TPN order (50% Dextrose, 10%AA, daily 50g lipids) @50mL/hr, providing total of 1710kcal, 300g dextrose, 60g protein, 1200mL fluids. -To reduce risk of refeeding syndrome, rec to initiate TPN (30% Dextrose, 15% AA, daily 50g lipids) @45mL/hr, providing total of 1324kcal, 162g dextrose, 81g protein, 1080mL fluids. This meets 89% of est calorie and 100% of est protein needs. Increase dextrose as BG and electrolytes are stable. -Check BMP, Phos, Mag daily; Prealbumin, LFT and TG levels weekly -Continue with TPN per MD until diet is advanced and intake is >50%. Plan of Care: RD following, monitoring for tolerance and adequacy, TPN Nutrition reason for involvement: New TPN, clear liquid/NPO x 5 days, follow up RD Assessment (08/26) Pt was discussed during AM rounds. S/p appendectomy on 08/22. HD catheter was placed on 08/25. CT abd/pel showed possible PNA or aspiration, ascites, and post-op ileus. NPO/clear liquid x5 days. Pt was aphasic. Pt was not taking clear liquid. Per MARICRUZ Caldwell, NGT will be placed to administer meds and TPN is scheduled to start tonight. Na, K, Phos, and Mg were WNL. BG 264 327. Positive BS but no BM since 08/21. C diff pending. Spoke with Pharmacist to obtain TPN order placed by Dr Iyer. Paged Dr. Iyer, hoping to change TPN order as 300g dextrose will place pt at high risk for refeeding syndrome. Will continue to monitor and follow. Please consult as needed. (08/22) 73 YOF admitted for abdominal pain found ot have appendicitis, pt seen today per MST screen. Pt discussed during AM rounds. Pt reports poor intake x 2-3 days with intermittent N/V without and no constipation or diarrhea DIRECTOR OF INFECTION PREVENTION. pt reports UBW of 201#, no wt loss noted. Pt reports that she follows a diabetic diet at home. Chart reviewed. Skin intact. LBM 08/21. Labs and meds reviewed. Will monitor and continue to follow. Principal Problems/Diagnoses: s/p appendectomy, CKD PMH: CAD, DM, HTN, CKD, HLD, CVA GI: abdomen soft, round, tender, flatus present, LBM recorded on 08/21 Skin: no pressure wound noted Labs: (08/26) BUN 99 H, Creatinine 3.54 H, Glucose 264 327 H Meds: insulin, abx, sodium bicarb Ht: 70 in Wt: 202 lb; 215.06 lb BMI: 29 kg/m2 IBW: 150 lb Malnutrition Evaluation (08/22/18) The patient does not meet criteria for a specified degree of malnutrition at this time. Will re-evaluate at follow-up as appropriate. Nutrition Prescription (Diet Order): clear liquid Estimated Nutritional Needs: Calories: 1496 1700kcal (22-25kcal/kg/d) Weight used: IBW Protein: 82 102g (1.2-1.5g/kg/d) Weight used: IBW Diet Adequacy: Not meeting calorie needs, Not meeting protein needs Diet Education Needs Assessment: Diet education not indicated. Nutrition Care Level: high (new TPN) Nutrition Diagnosis: Inadequate oral intake related to recent surgeries as evidenced by pt requiring PN as main source of nutrition. Goal: Patient will meet 75-100% of estimated needs by follow up Progress: Not progressing Interventions: Composition, Rate, Route, IVF Monitoring/Evaluation: Total energy intake, Total protein intake, Formula/Solution, IVF, Weight change, labs Signed: Florecita Alcantara MS, RD, LD
[2018-08-26] MEDS: METRONIDAZOLE 500MG/NS 100ML 100 ML IV SCH ×2 (16:01→22:05)
[2018-08-26] MEDS: MORPHINE SULFATE INJ 4 MG/ML INJ 1ML IV PRN (19:55)
[2018-08-26] MEDS: CENTRAL TPN FORMULA 1 BAG IV SCH (20:00)
[2018-08-26] MEDS: METOPROLOL TARTRATE INJ 1 MG/ML VIAL IV PRN (22:09)
[2018-08-26] MEDS: HYDROCODONE/APAP 5MG-325MG TAB PO PRN (23:19)
[2018-08-27] VITALS (24 sets, daily range): BP systolic 139–186; BP diastolic 45–74
[2018-08-27] MEDS ORDERED: ACETAMINOPHEN 1000 MG/100 ML IV PRN (02:30)
[2018-08-27 04:43] LABS: BASOPHILS # (AUTO) 0.1 (0.0-0.1); BASOPHILS % 0.3 % (0.0-1.0); HEMATOCRIT 29.3 % (34.2-44.1); HEMOGLOBIN 9.9 g/dL (12.0-16.0); LYMPHOCYTES # (AUTO) 1.3 (1.0-3.2); MEAN CORPUSCULAR HEMOGLOBIN 30.3 pg (28-32); MEAN CORPUSCULAR HGB CONC 33.8 g/dL (31-35); MEAN CORPUSCULAR VOLUME 89.6 fL (81-99); MONOCYTES # (AUTO) 1.5 (0.2-0.8); MONOCYTES % 7.8 % (4.4-11.3); NEUTROPHILS # (AUTO) 15.2 (2.1-6.9); NEUTROPHILS % 81.3 % (38.7-80.0); PLATELET COUNT 233 x10e3/uL (140-360); RED BLOOD COUNT 3.27 x10e6/uL (3.6-5.1); RED CELL DISTRIBUTION WIDTH 13.4 % (11.7-14.4)
[2018-08-27] MEDS: MORPHINE SULFATE INJ 4 MG/ML INJ 1ML IV PRN ×2 (05:05→21:18)
[2018-08-27 05:09] LABS: ALBUMIN 2.2 g/dL (3.5-5.0); ALBUMIN/GLOBULIN RATIO 0.6 (0.8-2.0); ANION GAP 16.4 mmol/L (8-16); CALCIUM 8.5 mg/dL (8.4-10.2); CREATININE, SERUM 2.87 mg/dL (0.57-1.11); MAGNESIUM 2.1 MG/DL (1.3-2.1); PHOSPHORUS 1.8 MG/DL (2.3-4.7); POTASSIUM 3.4 mmol/L (3.5-5.1)
[2018-08-27] MEDS: METRONIDAZOLE 500MG/NS 100ML 100 ML IV SCH ×3 (05:49→21:27)
[2018-08-27] MEDS: INSULIN LISPRO 100 UNIT/1 ML 3ML VIAL SQ SCH ×4 (05:50→21:15)
[2018-08-27] MEDS: HYDRALAZINE HCL 20 MG/ML VIAL IV PRN (06:00)
--- NOTE | 2018-08-27 07:00 | NUR ---
Rec'd report from shift mgr nurse pt w/Stage II to right inner thigh and to sacrum, allevyn in place. will continue to monitor
--- NOTE | 2018-08-27 07:17 | NUR ---
nursing report given to rena ALCANTARA
--- NOTE | 2018-08-27 07:48 | Diagnostic Imaging Report ---
EXAMINATION: CHEST SINGLE (PORTABLE) INDICATION: ^fever ^[id number] ^0700 ^Y COMPARISON: Abdominal x-ray 08/26/2018 FINDINGS: AP view TUBES and LINES: Left chest wall cardiac device in place. NG/J-tube in place with tip extending outside the [id number]. LUNGS: Mildly elevated right hemidiaphragm. Pulmonary vascular congestion and suspected mild interstitial edema. PLEURA: No visible pneumothorax. Trace right pleural effusion. HEART AND MEDIASTINUM: The cardiomediastinal silhouette is enlarged on this AP view. Median sternotomy wires BONES AND SOFT TISSUES: No acute osseous lesion. Soft tissues are unremarkable. UPPER ABDOMEN: No free air under the diaphragm. IMPRESSION: Pulmonary vascular congestion and suspected mild interstitial edema. Trace right pleural effusion. Developing infiltrate in the right lower lung field cannot be excluded. Signed by: Dr. Wes Everett MD on 08/27/2018 7:45 AM
[2018-08-27 07:51] LABS: LYMPHOCYTES % (MANUAL) 8 % (19-48); MONOCYTES % (MANUAL) 6 % (3.4-9.0); NEUTROPHILS % (MANUAL) 85 % (40-74)
[2018-08-27 07:52] LABS: PLATELET ESTIMATE ADEQUATE; PLATELET MORPHOLOGY COMMENT NORMAL; POIKILOCYTOSIS SLIGHT; RBC MORPHOLOGY COMMENT ABNORMAL; TARGET CELLS FEW
--- NOTE | 2018-08-27 09:13 | NUR ---
notified Dr. Iyer of a.m. lab results. rec'd orders for KCl (see MAR) and notified Pharmacy to remove Sodium Acetate from TPN. spoke with Anushka in pharmacy of changes. TORB to Dr. Iyer/Anushka/ Jim Spring RN
[2018-08-27] MEDS: AMIODARONE HCL 200 MG TAB PO SCH ×2 (09:55→18:13)
[2018-08-27] MEDS: CEFEPIME 1GM/NS 0.9% 50 ML 50 ML IV SCH (09:55)
[2018-08-27] MEDS ORDERED: POTASSIUM CHLORIDE 20MEQ/100ML 100 ML IV ONE (10:00)
[2018-08-27 14:05] LABS: B-TYPE NATRIURETIC PEPTIDE2 538.2 pg/mL (0-100)
[2018-08-27 14:21] LABS: FREE THYROXINE INDEX 1.954 (1.4-3.8); THYROID STIMULATING HORMONE 1.012 uIU/mL (0.350-4.940)
[2018-08-27 17:52] LABS: CLARITY,URINE HAZY (CLEAR); COLOR,URINE YELLOW (YELLOW); LEUKOCYTE ESTERASE ,URINE 1+ (NEGATIVE); NITRITE,URINE NEGATIVE (NEGATIVE); PROTEIN,URINE DIPSTICK 2+ (NEGATIVE)
[2018-08-27 17:53] LABS: BILIRUBIN,URINE NEGATIVE (NEGATIVE); KETONES,URINE NEGATIVE (NEGATIVE); URINE UROBILINOGEN 0.2 mg/dL (0.2 - 1)
[2018-08-27 18:01] LABS: BACTERIA,URINE MODERATE /HPF
[2018-08-27 18:02] LABS: AMORPHOUS SEDIMENT,URINE FEW (FEW); EPITHELIAL CELLS,URINE FEW /LPF; MUCUS,URINE FEW (RARE); YEAST,URINE MODERATE
[2018-08-27] MEDS: PANTOPRAZOLE 40 MG 10ML VIAL IV SCH (18:13)
[2018-08-27] MEDS ORDERED: DEXTROSE 50% SYRINGE 50 ML IV PRN (18:45)
[2018-08-27] MEDS ORDERED: INSULIN LISPRO 100 UNIT/1 ML 3ML VIAL SQ ONE (19:00)
[2018-08-27] MEDS: CENTRAL TPN FORMULA 1 BAG IV SCH (20:19)
[2018-08-27] MEDS: HEPARIN SOD (PORCINE) 5,000 UNIT/ML VIAL SC SCH (21:00)
[2018-08-27] MEDS: ONDANSETRON HCL INJ 2MG/ML 2ML 2 MG/ML VIAL IV PRN (21:28)
--- NOTE | 2018-08-27 22:17 | Consultation ---
DATE OF CONSULTATION: 08/27/2018 Neurology Consult Note HISTORY OF PRESENT ILLNESS: Unfortunately, Ms. Hannah is encephalopathic, and unable to provide history. There are no family members available at the bedside at present. Therefore, history is obtained from review of the electronic medical records and hospital staff. Ms. Hannah is a 73-year-old right-woman with past medical history significant for hypertension, hyperlipidemia, diabetes mellitus, coronary artery disease, prior stroke, and chronic kidney disease stage 5, admitted to [facility] on August 21, 2018, with a 3-day history of abdominal pain and low-grade fevers. Shortly after admission to the emergency center at [facility] on August 21, 2018, the patient was found to have appendicitis with a ruptured appendix and peritonitis. Ms. Hannah was taken urgently to the operating room for a laparoscopic procedure. Sometime later, the patient was taken back to the operating room for a washout. Since admission, the patient has appeared encephalopathic. According to the patient's nurse, Ms. Hannah's encephalopathy appears to have progressively worsened during her hospitalization. The patient's nurse reports a decreased level of responsiveness. Ms. Hannah may nod her head yes or shake her head no to questions. However, she will not respond verbally. Ms. Hannah intermittently follows simple commands. According to the patient's nurse, Ms. Hannah appears to be generally weak. This may be why she has some difficulty following simple commands. REVIEW OF SYSTEMS: Unable to obtain secondary to the patient being encephalopathic and not verbalizing. PAST MEDICAL HISTORY: Hypertension, hyperlipidemia, diabetes mellitus, coronary artery disease, prior stroke with unknown residual deficits, and chronic kidney disease stage 5. PAST SURGICAL HISTORY: CABG in 2015, hip surgery, bilateral knee surgeries, hernia repair, AV fistula placement in the left forearm, lap-band procedure. PAST HOSPITALIZATIONS: Surgeries/procedures as listed, multiple other previous hospitalizations. FAMILY MEDICAL HISTORY: There is no known significant prior family medical history. SOCIAL HISTORY: Ms. Hannah is . She is retired. There is no reported current or prior tobacco, alcohol, or recreational drug use. HOME MEDICATIONS: Reviewed. Please see the list of home medications available in the electronic medical record. HOSPITAL MEDICATIONS: Reviewed. Please see the list of hospital medications available in the electronic medical record. ALLERGIES: LEVOFLOXACIN. NO KNOWN FOOD ALLERGIES. NO KNOWN ALLERGIES TO LATEX. NO KNOWN ALLERGIES TO IODINE OR OTHER CONTRAST MATERIALS. PHYSICAL EXAMINATION: VITAL SIGNS: Height 70 inches, weight 216 pounds, BMI 31.0 kg/m2, blood pressure 164/65 mmHg, pulse 88 beats per minute, respiratory rate 24 breaths per minute, oxygen saturation 97% on 2 L by nasal cannula. GENERAL: The patient is drowsy, but opens her eyes to verbal stimuli. HEENT: Normocephalic, atraumatic. Pupils are equal, round, and sluggishly reactive to light. Moist mucous membranes. NECK: Supple. No appreciable thyromegaly. No appreciable carotid bruits. CARDIOVASCULAR: S1, S2, regular rate and rhythm. No murmurs, rubs, or gallops. RESPIRATORY: Decreased air movement at the bases bilaterally. EXTREMITIES: The skin is warm and dry. No clubbing, cyanosis, or edema. The posterior tibial and dorsalis pedis pulses are 1+ and symmetric. An AV fistula is present near the left wrist, positive bruit/thrill. SKIN: No rashes or lesions. NEUROLOGIC: Memory/Attention: The patient is drowsy, but opens her eyes to verbal stimuli. Ms. Hannah does not answer orientation questions nor does she follow simple commands. Cranial nerves: Pupils are equal and round, but sluggishly reactive to light (4 mm to 2 mm). Corneal and oculocephalic reflexes are intact. The face appears symmetric. Hearing is grossly intact. Strength: Bulk is diminished throughout. The patient withdraws from peripheral noxious stimulation in all four extremities. Tone is decreased in all four extremities. DTRs: Deep tendon reflexes are trace and symmetric at the triceps, biceps, and brachioradialis. Deep tendon reflexes are absent and symmetric at the patellas and Achilles. Plantar responses are mute bilaterally. Sensation: As per motor exam. Cerebellar: Unable to assess secondary to the patient being encephalopathic as well as generalized weakness. Gait: Deferred. Speech: Unable to assess secondary to the patient being encephalopathic and not verbalizing. Involuntary movements: None. Pronator drift: As per motor exam. LABORATORY DATA: The most recent comprehensive metabolic panel is significant for mildly elevated sodium of 146, potassium of 3.4, anion gap of 16.4, BUN of 93, creatinine of 2.87, estimated GFR of 16, IGC-qy-enwgmxwqty ratio of 32, serum glucose of 336, phosphorus of 1.8, total protein is 6.0, albumin of 2.2, globulin of 3.8, and eqxhyre-sa-gvnevewi ratio 0.6. Lactic acid drawn on August 24, 2018, was 9.0. Amylase drawn on August 24, 2018, was 59. Lipase drawn on the same date was 18. Cardiac enzymes are negative x4. Pneumonia drawn on August 21, 2018, is 46. A brain natriuretic peptide drawn on August 21, 2018, was 422.2. Most recent CBC with differential and platelets reveals white blood cell count of 18.73 with a left shift with 81.3% neutrophils, 7.0% lymphocytes, 7.8% monocytes, 0.0% eosinophils, and 0.3% basophils. The hemoglobin and hematocrit are 9.9 and 29.3, respectively. The platelet count is 233. A urinalysis collected on August 21, 2018 revealed 2+ protein and 1+ blood. Stool occult blood was negative on August 21, 2018. Influenza types A, B antigen were negative on August 21, 2018. A blood culture collected on August 21, 2018, grew anaerobic gram-negative rods. A 2nd blood culture collected on that date revealed no growth after five days. A urine culture collected on August 21, 2018, revealed no growth at 36-48 hours. A blood culture collected on August 24, 2018, reveals no growth at 72 hours. Blood cultures collected on August 27, 2018, are pending. DIAGNOSTIC STUDIES: Electrocardiogram of 08/24/2018: Sinus rhythm with a widened QRS complex at 96 beats per minute with occasional premature ventricular complexes. Right bundle-branch block. EKG on 08/23/2018: Atrial fibrillation with rapid ventricular response at 129 beats per minute. Right bundle-branch block. Echocardiogram of 08/22/2018: Ejection fraction 40%-45%. Trace paracardial effusion. Trace mitral regurgitation. Calcified mitral and aortic valves. Chest x-ray on 08/21/2018: No acute radiographic abnormality. Nodular opacity projects over the left upper lung. Chest CT is recommended for further evaluation. CT of the brain without contrast 08/21/2018: On my review, there is no evidence of recent large territorial ischemia, hemorrhage, mass, or mass effect. There is diffuse cerebral atrophy with compensatory dilatation of the ventricles, appropriate for age. There are findings compatible with szkj-qp-bugfmzkz chronic small-vessel ischemic disease. Chest CT on 08/21/2018: Left upper lobe calcified granula corresponding to nodular opacity noted on same day chest radiograph. Severely dilated esophagus with substantial fluid in the mid and distal portions which may increase the risk for aspiration. Gastroesophageal reflux could be seen in the setting of gastric band. Suggest correlation with clinical history and endoscopy if clinically indicated. CT of the abdomen and pelvis of 08/21/2018: Limited evaluation of the bowel secondary to lack of contrast and streak artifact from right hip arthroplasty. There is significant stranding within the right lower quadrant of unclear etiology and could reflect inflammatory changes of the small bowel or cecum. However, appendix is not identified and appendicitis is possible. Recommend repeat CT with oral contrast. There is mild thickening of small bowel loops, some of which are distended. No definite transition point. This could represent enteritis in the appropriate clinical setting. No evidence of high-grade obstruction. No evidence of acute traumatic abnormality within the abdomen or pelvis. CT of the brain without contrast of 08/24/2018: Unchanged from prior CT examination. Chest CT 08/25/2018: Bilateral lower lobe consolidation with air bronchograms, greater on the right, developing since previous exam. This is compatible with possible pneumonia or aspiration. CT of the abdomen and pelvis of 08/25/2018: 1. Enlarging collection of fluid in the right lower quadrant of the abdomen. There is no air within this fluid. This may represent increasing ascites, postoperative fluid, or may be fluid tracking along the adjacent gastric band catheter. 2. Distention of the 3rd portion of the duodenum. This may be a transient finding or may represent ileus. There are mildly distended air and fluid-filled small bowel loops in the mid abdomen which may represent ileus, possibly postoperative. 3. Postoperative status since previous exam with skin chinmay over the lower abdomen and pelvis and minimal air in the anterior pelvic wall. 4. Abdomen x-ray 08/26/2018: NG tube below the diaphragm. 5. Chest x-ray 08/27/2018: Pulmonary vascular congestion and suspected mild interstitial edema. Trace right pleural effusion. Developing infiltrates in the right lower lung field cannot be excluded. ASSESSMENT AND PLAN: Ms. Hannah is a 73-year-old woman with an extensive past medical history, admitted to [facility] on August 21, 2018, with appendicitis, ruptured appendix, and peritonitis. Throughout her hospitalization, the patient has been noted to be encephalopathic. A neurological examination was performed with findings detailed above. The patient's laboratory data and other diagnostic studies have been reviewed and are documented above. 1. Neuro: Ms. Hannah has a metabolic encephalopathy which is likely multifactorial. Factors contributing to metabolic encephalopathy include infection, chronic kidney disease, and medication effect. Additional studies will be ordered to evaluate for other possible causes of metabolic encephalopathy. Those studies will include: An ammonia level, a thyroid function panel, a vitamin B1 level, a vitamin B6 level, a vitamin B12 level, methylmalonic acid, folate, RPR, B-type natriuretic peptide, erythrocyte sedimentation rate, CRP, urinalysis with micro, and urine culture. Treatment was sedative hypnotic and pain medication should be limited as these will alter the patient's sensorium. 2. Respiratory: The patient is tachypneic. Her oxygen saturation has ranged from 96% to 97% on 2 L by nasal cannula. Continue supplemental oxygen. Defer treatment to Pulmonology/Critical Care. 3. Cardiovascular: The patient has a history of hypertension, coronary artery disease. The patient's blood pressures have been in the 150s to 160s systolic/50s to 60s diastolic for the past 24 hours. Continue antihypertensive medications as prescribed. Monitor vital signs per unit protocol. Defer management to the Primary and Cardiology Services. 4. Endocrine: The patient has a history of diabetes mellitus. Her fingerstick blood sugars have ranged from 281 to 360 over the past 24 hours. Continue sliding scale insulin per protocol. Ms. Hannah has a history of hyperlipidemia/dyslipidemia. Statin is being held at present. 5. Gastrointestinal: The patient is on TPN. Defer treatment to the Primary and Other Services. 6. Renal: The patient has chronic kidney disease stage 5. Trialysis catheter is in place. Defer further evaluation and treatment to Nephrology. 7. : The patient has a catheter in place. I's and O's are being strictly monitored. 8. Infectious Disease: The patient had appendicitis and peritonitis on admission. Imaging studies have revealed possible pneumonia as well. Follow up the pending cultures. Continue current antibiotics. Defer further treatment to Infectious Disease. 9. Hematology: The patient is anemic. Stable. Continue to monitor with daily labs. 10. Gastrointestinal prophylaxis with Protonix 40 mg intravenously daily. 11. Deep venous thrombosis prophylaxis with heparin 5000 units subcutaneously every 12 hours. 12. Prognosis is guarded. Thank you for this consultation. I will continue to follow the patient while she remains in the hospital. TIME SPENT: 70 minutes. Lona Mccracken MD CP/GEOVANI /[id number] MTDD
[2018-08-28] VITALS (24 sets, daily range): BP systolic 131–181; BP diastolic 54–74
[2018-08-28] MEDS: MORPHINE SULFATE INJ 4 MG/ML INJ 1ML IV PRN ×3 (03:09→20:28)
[2018-08-28] MEDS ORDERED: ACETAMINOPHEN 1000 MG/100 ML IV STA (03:36)
[2018-08-28 04:41] LABS: BASOPHILS # (AUTO) 0.1 (0.0-0.1); BASOPHILS % 0.3 % (0.0-1.0); EOSINOPHILS % 0.1 % (0.0-6.0); HEMOGLOBIN 9.8 g/dL (12.0-16.0); LYMPHOCYTES % 8.2 % (18.0-39.1); MEAN CORPUSCULAR HEMOGLOBIN 30.1 pg (28-32); MEAN CORPUSCULAR HGB CONC 31.6 g/dL (31-35); MEAN CORPUSCULAR VOLUME 95.1 fL (81-99); MONOCYTES # (AUTO) 1.7 (0.2-0.8); MONOCYTES % 6.8 % (4.4-11.3); NEUTROPHILS # (AUTO) 19.8 (2.1-6.9); NEUTROPHILS % 80.6 % (38.7-80.0); PLATELET COUNT 224 x10e3/uL (140-360); RED BLOOD COUNT 3.26 x10e6/uL (3.6-5.1); RED CELL DISTRIBUTION WIDTH 13.9 % (11.7-14.4)
[2018-08-28 05:04] LABS: ALBUMIN 2.2 g/dL (3.5-5.0); ALBUMIN/GLOBULIN RATIO 0.6 (0.8-2.0); ANION GAP 13.5 mmol/L (8-16); CALCIUM 8.5 mg/dL (8.4-10.2); CREATININE, SERUM 2.67 mg/dL (0.57-1.11); POTASSIUM 3.5 mmol/L (3.5-5.1)
[2018-08-28] MEDS: METRONIDAZOLE 500MG/NS 100ML 100 ML IV SCH ×3 (06:10→22:00)
[2018-08-28] MEDS: METOPROLOL TARTRATE INJ 1 MG/ML VIAL IV PRN (06:20)
--- NOTE | 2018-08-28 06:25 | NUR ---
PATIENT WAS GIVEN PRN LOPRESSOR 2.5MG FOR SBP GREATER THAN 169 THEN NOTICED A RHYTHM CHANGE. STAT EKG ORDERED
--- NOTE | 2018-08-28 06:33 | Diagnostic Imaging Report ---
EXAMINATION: CHEST SINGLE (PORTABLE) INDICATION: Pneumonia. COMPARISON: 08/27/2018. FINDINGS: AP view TUBES and LINES: Left-sided cardiac pacemaker, unchanged. NG/J-tube in place with tip extending below the diaphragm however, outside the cpvan-ws-carz. LUNGS: Mildly elevated right hemidiaphragm. Mild pulmonary venous congestion again observed. Small nodular densities scattered throughout the left lung, unchanged. Left basilar subsegmental atelectasis. PLEURA: No visible pneumothorax. Trace right pleural effusion. HEART AND MEDIASTINUM: The cardiomediastinal silhouette is enlarged on this AP view. Median sternotomy wires. Prominence of the pulmonary hilum bilaterally, left greater than right may represent enlarged pulmonary arteries. BONES AND SOFT TISSUES: No acute osseous lesion. Soft tissues are unremarkable. UPPER ABDOMEN: No free air under the diaphragm. IMPRESSION: No significant interval change. Mild pulmonary venous congestion. Signed by: Dr. Virgen Webster M.D. on 08/28/2018 6:30 AM
[2018-08-28] MEDS: INSULIN LISPRO 100 UNIT/1 ML 3ML VIAL SQ SCH ×4 (08:20→21:00)
[2018-08-28] MEDS: CEFEPIME 1GM/NS 0.9% 50 ML 50 ML IV SCH (08:21)
[2018-08-28] MEDS: PANTOPRAZOLE 40 MG 10ML VIAL IV SCH (08:22)
[2018-08-28] MEDS: AMIODARONE HCL 200 MG TAB PO SCH ×2 (08:22→17:17)
[2018-08-28] MEDS: HEPARIN SOD (PORCINE) 5,000 UNIT/ML VIAL SC SCH ×2 (08:26→20:33)
[2018-08-28] MEDS ORDERED: POTASSIUM CHLORIDE 10MEQ EA PO ONE (13:45)
[2018-08-28] MEDS: CENTRAL TPN FORMULA 1 BAG IV SCH (20:10)
[2018-08-28] MEDS: HYDROCODONE/APAP 5MG-325MG TAB PO PRN (23:23)
[2018-08-29] VITALS (24 sets, daily range): BP systolic 101–173; BP diastolic 44–72
[2018-08-29] MEDS: MORPHINE SULFATE INJ 4 MG/ML INJ 1ML IV PRN ×3 (02:26→20:24)
[2018-08-29] MEDS ORDERED: SODIUM CHLORIDE 0.9% 250ML 250 ML ONE (02:46)
[2018-08-29] MEDS: METRONIDAZOLE 500MG/NS 100ML 100 ML IV SCH ×3 (05:53→21:39)
[2018-08-29] MEDS: HYDROCODONE/APAP 5MG-325MG TAB PO PRN ×3 (09:00→21:40)
--- NOTE | 2018-08-29 09:00 | NUR ---
pt resting in bed, able to nod head for yes/no responses. son at bedside. states she appears more alert than previous shifts. ed dr phan no labs ordered for today, new orders for tomorrow.
[2018-08-29] MEDS: AMIODARONE HCL 200 MG TAB PO SCH ×2 (09:07→17:57)
[2018-08-29] MEDS: CEFEPIME 1GM/NS 0.9% 50 ML 50 ML IV SCH (09:07)
[2018-08-29] MEDS: PANTOPRAZOLE 40 MG 10ML VIAL IV SCH (09:07)
[2018-08-29] MEDS: HEPARIN SOD (PORCINE) 5,000 UNIT/ML VIAL SC SCH ×2 (09:10→20:39)
[2018-08-29] MEDS: INSULIN LISPRO 100 UNIT/1 ML 3ML VIAL SQ SCH ×5 (09:11→23:24)
[2018-08-29] MEDS ORDERED: POTASSIUM CHLORIDE 20MEQ/15ML UDC NG NR (09:30)
[2018-08-29] MEDS: HYDRALAZINE HCL 25 MG TAB PO SCH ×2 (09:38→17:58)
[2018-08-29] MEDS: ONDANSETRON HCL INJ 2MG/ML 2ML 2 MG/ML VIAL IV PRN (10:04)
[2018-08-29] MEDS ORDERED: ACETAMINOPHEN 325 MG TAB PO PRN (10:15)
--- NOTE | 2018-08-29 10:48 | NUR ---
WOUND CARE CONSULTATION INITIAL EVALUATION DX: ABDOMINAL PAIN, CKD, AND VOMITING. HX:HTN, HYPERLIPIDEMIA, CAD, STROKE, AND CKD STAGE 5. LABS: WBC:24.53 ALB: 2.2 GLUCOSE: 391 Wound Care Consulted For: RESOLVING ULCERATIONS TO BILATERAL MEDIAL THIGHS. Alternating Pressure Air Mattress Moderate Strict PUP IMPRESSION: RIGHT MEDIAL THIGH IS [id number]. LEFT MEDIAL THIGH IS 0.5X 3X0 CM. NO OPEN AREAS ARE NOTED AT THIS TIME. PT ALSO PRESENTS WITH X 3 AREAS WITH DRY AND STABLE KIM TO ABDOMEN S/P LAPAROSCOPIC APPENDECTOMY ON AUGUST 22, [address] WELSH. RECOMMENDATION: - Monitor bilateral medial thighs daily -Continue with Alternating Pressure Air Mattress - Provide pt Bilateral Heel Protectors and Offload Heels with Pillows - Turn and Reposition Every 2 Hours Addendum: 08/29/18 at 1058 by Annetta Guerra RN Amended: Links added. Addendum: 08/29/18 at 1100 by Annetta Guerra RN PT ALSO PRESENTS WITH A STAGE II PRESSURE ULCER TO SACRAL CREASE. 2X0.8CMXO.1. RECOMMEND VENELEX AND FOAM DRESSING BID.
--- NOTE | 2018-08-29 10:52 | NUR ---
pt has had documented bm since prior to admit, currently has ng and tpn, per dr augustine ordering kub to check abd status and possibly switch from tpn to ng feeds. aware of labs. per Quoc PRUETT, labs tomorrow
--- NOTE | 2018-08-29 11:41 | NUR ---
Met with son Olaf at pt bedside. Educated on IMM and also on LTAC. He verbalized understanding and signed IMM and choice letter to [facility] or [facility]. [facility] is first choice. Copy of both given to son, originals placed on chart. Notified Rebeka Rojas, liaison with [facility].
--- NOTE | 2018-08-29 13:34 | Diagnostic Imaging Report ---
Abdomen, 2 views dated 08/29/2018 at 11:06 AM. History: Possible obstruction. Findings: Exam is degraded by patient motion. The intestinal gas pattern is nonobstructive. Residual contrast within portions of the right colon. Gastric lap band reservoir and tubing noted. NG tube extends below the diaphragm. There is a left femoral large-bore central line. Skin chinmay overlie the pelvis. There no masses or abnormal calcifications. The osseous structures reveal degenerative changes. IMPRESSION: No evidence to suggest bowel obstruction. Signed by: Dr. Chris Gonsalves DO on 08/29/2018 1:31 PM
[2018-08-29 14:12] LABS: BASOPHILS # (AUTO) 0.1 (0.0-0.1); BASOPHILS % 0.3 % (0.0-1.0); EOSINOPHILS # (AUTO) 0.1 (0.0-0.4); EOSINOPHILS % 0.3 % (0.0-6.0); HEMATOCRIT 29.3 % (34.2-44.1); HEMOGLOBIN 8.9 g/dL (12.0-16.0); LYMPHOCYTES # (AUTO) 1.8 (1.0-3.2); LYMPHOCYTES % 7.3 % (18.0-39.1); MEAN CORPUSCULAR HGB CONC 30.4 g/dL (31-35); MEAN CORPUSCULAR VOLUME 111.8 fL (81-99); MONOCYTES # (AUTO) 1.3 (0.2-0.8); MONOCYTES % 5.6 % (4.4-11.3); NEUTROPHILS # (AUTO) 19.7 (2.1-6.9); NEUTROPHILS % 82.9 % (38.7-80.0); PLATELET COUNT 179 x10e3/uL (140-360); RED BLOOD COUNT 2.62 x10e6/uL (3.6-5.1); RED CELL DISTRIBUTION WIDTH 15.4 % (11.7-14.4)
[2018-08-29 14:29] LABS: ALBUMIN/GLOBULIN RATIO 0.5 (0.8-2.0); ANION GAP 13.2 mmol/L (8-16); CALCIUM 8.4 mg/dL (8.4-10.2); CREATININE, SERUM 2.77 mg/dL (0.57-1.11); MAGNESIUM 3.2 MG/DL (1.3-2.1); PHOSPHORUS 2.8 MG/DL (2.3-4.7); POTASSIUM 3.2 mmol/L (3.5-5.1)
--- NOTE | 2018-08-29 14:40 | NUR ---
dr israel aware of labs, new orders recvd.
[2018-08-29] MEDS ORDERED: POTASSIUM CHLORIDE 20MEQ/100ML 200 ML IV ONE (14:45)
--- NOTE | 2018-08-29 14:55 | NUR ---
Nutrition Intervention Note RD Recommendation(s) for Physician: -Pending labs, recommend changing TPN to TV 1440 ml/day at 60 ml/hr of 150 g/day dextrose, 80 g/day AA 10%, 40 g/day Lipids, KPhos 10 mmol/L, Ca Gluconate 5 mEq/L, Mg Sulfate 12 mEq/L. Continue MVI and trace. (to provide 1230 kcal). -Please check Phos and replace per protocol. -Please give Thiamine outside of TPN due to shortage to promote improved CHO metabolism. -Check BMP, Phos, Mag daily; Prealbumin, LFT and TG levels weekly. -Pending KUB, if okay to start TF recommend initiating Nepro at 10 ml/hr slowly advancing to goal rate of 40 ml/hr (to provide 1728 kcal and 78 gm protein per day). Water flushes and fluid management per MD. -Bowel regimen per protocol. -Insulin and BG control per MD. Plan of Care: RD following, monitoring for tolerance and adequacy, TPN and TF rec's Nutrition reason for involvement: follow up RD Assessment 08/29: Pt discussed during ICU rounds. Discussed low Phos of 1.8 on 08/27 and elevated BG trend, discussed need for Phos draw and probable replacement as there is no Phos in TPN and pt is likely refeeding. RN reports she will discuss with MD when he calls back. Discussed insulin regimen and BG coverage with Pharmacist, adjustments pending. Pt with NGT in place, pending KUB results pt may advance to TF. No BM recently per rounds. Pt mentally altered at time of visit, no family present. KUB today. TPN and TF rec's provided. POC reviewed with RN. (08/26) Pt was discussed during AM rounds. S/p appendectomy on 08/22. HD catheter was placed on 08/25. CT abd/pel showed possible PNA or aspiration, ascites, and post-op ileus. NPO/clear liquid x5 days. Pt was aphasic. Pt was not taking clear liquid. Per MARICRUZ Caldwell, NGT will be placed to administer meds and TPN is scheduled to start tonight. Na, K, Phos, and Mg were WNL. BG 264 327. Positive BS but no BM since 08/21. C diff pending. Spoke with Pharmacist to obtain TPN order placed by Dr Iyer. Paged Dr. Iyer, hoping to change TPN order as 300g dextrose will place pt at high risk for refeeding syndrome. Will continue to monitor and follow. Please consult as needed. (08/22) 73 YOF admitted for abdominal pain found ot have appendicitis, pt seen today per MST screen. Pt discussed during AM rounds. 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 pt reports UBW of 201#, no wt loss noted. Pt reports that she follows a diabetic diet at home. Chart reviewed. Skin intact. LBM 08/21. Labs and meds reviewed. Will monitor and continue to follow. Principal Problems/Diagnoses: s/p appendectomy, CKD PMH: CAD, DM, HTN, CKD, HLD, CVA GI: abdomen soft, round, tender, flatus present, LBM recorded on 08/21 Skin: no pressure wound noted Labs: (08/29) Na 149, K 3.5, Cl 109, CO2 30, BUN 90, Cr 2.67, Gluc 371, 08/27: Phos 1.8, Mg 2.1 Meds: SSI-lispro, protonix, zofran, amiodarone Ht: 70 in Wt: 202 lb; 215.06 lb BMI: 29 kg/m2 IBW: 150 lb Malnutrition Evaluation (08/22/18) The patient does not meet criteria for a specified degree of malnutrition at this time. Will re-evaluate at follow-up as appropriate. Nutrition Prescription (Diet Order): NPO -Current TPN order (50% Dextrose, 10%AA, daily 50g lipids) at 50mL/hr, providing total of 1763 kcal, 300g dextrose, 60g protein, 1200mL fluids. Estimated Nutritional Needs: Calories: 1496 1700kcal (22-25kcal/kg/d) Weight used: IBW Protein: 82 102g (1.2-1.5g/kg/d) Weight used: IBW Diet Adequacy: Not meeting calorie needs, Not meeting protein needs Diet Education Needs Assessment: Diet education not indicated. Nutrition Care Level: high Nutrition Diagnosis: Inadequate oral intake related to recent surgeries as evidenced by pt requiring PN as main source of nutrition. Goal: Patient will meet 75-100% of estimated needs by follow up Progress: Progressing Interventions: Composition, Rate, Route, IVF Monitoring/Evaluation: Total energy intake, Total protein intake, Formula/Solution, IVF, Weight change, labs Signed: Soni Amos RD, MALLORY, CNSC
--- NOTE | 2018-08-29 15:32 | NUR ---
notified dr augustine of labs previously updated to dr israel, new orders recv including updating diet and meds, one time dose of 10unit humalog also
[2018-08-29] MEDS: CENTRAL TPN FORMULA 1 BAG IV SCH (20:00)
[2018-08-29] MEDS: POTASSIUM CHLORIDE 20 MEQ in DEXTROSE 5% 1,000 ML IV SCH (20:31)
--- NOTE | 2018-08-29 20:43 | NUR ---
CALLED DR ISLAS REGARDING HIS RECENT TPN ORDERS AND THAT TPN RUNS FOR 24HOURS BEFORE CHANGING. HE PROCEEDED TO INFORM ME TO KEEP REMAINING TPN ORDERED EARLIER TILL RUNS OUT.
[2018-08-29] MEDS: INSULIN GLARGINE 100 UNITS/ML VIAL SQ SCH (21:34)
[2018-08-30] VITALS (25 sets, daily range): BP systolic 94–144; BP diastolic 29–60
[2018-08-30] MEDS: MORPHINE SULFATE INJ 4 MG/ML INJ 1ML IV PRN ×3 (02:47→23:49)
[2018-08-30] MEDS: HYDROCODONE/APAP 5MG-325MG TAB PO PRN ×3 (04:27→21:45)
[2018-08-30 04:36] LABS: BASOPHILS # (AUTO) 0.1 (0.0-0.1); BASOPHILS % 0.2 % (0.0-1.0); EOSINOPHILS # (AUTO) 0.1 (0.0-0.4); EOSINOPHILS % 0.4 % (0.0-6.0); HEMATOCRIT 28.3 % (34.2-44.1); HEMOGLOBIN 8.5 g/dL (12.0-16.0); LYMPHOCYTES # (AUTO) 1.8 (1.0-3.2); LYMPHOCYTES % 6.2 % (18.0-39.1); MEAN CORPUSCULAR HEMOGLOBIN 30.7 pg (28-32); MEAN CORPUSCULAR VOLUME 102.2 fL (81-99); MONOCYTES # (AUTO) 1.6 (0.2-0.8); MONOCYTES % 5.4 % (4.4-11.3); NEUTROPHILS # (AUTO) 24.7 (2.1-6.9); NEUTROPHILS % 84.2 % (38.7-80.0); PLATELET COUNT 188 x10e3/uL (140-360); RED BLOOD COUNT 2.77 x10e6/uL (3.6-5.1); RED CELL DISTRIBUTION WIDTH 14.7 % (11.7-14.4)
[2018-08-30 04:53] LABS: ALBUMIN 2.2 g/dL (3.5-5.0); ALBUMIN/GLOBULIN RATIO 0.6 (0.8-2.0); ALKALINE PHOSPHATASE 73 IU/L (40-150); ANION GAP 14.9 mmol/L (8-16); BLOOD UREA NITROGEN 102 mg/dL (7-26); BUN/CREATININE RATIO 33 (6-25); CARBON DIOXIDE 27 mmol/L (22-29); CHLORIDE 113 mmol/L (98-107); CREATININE, SERUM 3.08 mg/dL (0.57-1.11); EST GLOMERULAR FILTRATION RATE 15 ML/MIN (60-); GLUCOSE 172 mg/dL (74-118); POTASSIUM 4.9 mmol/L (3.5-5.1); SODIUM 150 mmol/L (136-145)
[2018-08-30] MEDS: POTASSIUM CHLORIDE 20 MEQ in DEXTROSE 5% 1,000 ML IV SCH (04:54)
[2018-08-30] MEDS: METRONIDAZOLE 500MG/NS 100ML 100 ML IV SCH ×3 (04:54→21:45)
[2018-08-30 05:09] LABS: ALANINE AMINOTRANSFERASE < 6 IU/L (0-55)
--- NOTE | 2018-08-30 05:25 | NUR ---
UNABLE TO WEIGH PATIENT THIS MORNING, BUILT IN BED-SCALE NOT WORKING CORRECTLY
[2018-08-30 06:06] LABS: EOSINOPHILS % (MANUAL) 1 % (0-7); LYMPHOCYTES % (MANUAL) 6 % (19-48); MONOCYTES % (MANUAL) 6 % (3.4-9.0); NEUTROPHILS % (MANUAL) 87 % (40-74)
[2018-08-30] MEDS: INSULIN LISPRO 100 UNIT/1 ML 3ML VIAL SQ SCH ×4 (06:06→21:44)
[2018-08-30 06:07] LABS: HYPOCHROMASIA MODERATE; PLATELET ESTIMATE ADEQUATE; PLATELET MORPHOLOGY COMMENT NORMAL; RBC MORPHOLOGY COMMENT ABNORMAL; TOXIC GRANULATION SLIGHT
[2018-08-30 06:08] LABS: ANISOCYTOSIS MODERATE
[2018-08-30] MEDS: INSULIN GLARGINE 100 UNITS/ML VIAL SQ SCH ×2 (06:09→21:43)
[2018-08-30] MEDS ORDERED: DEXTROSE 5% 1,000 ML IV ONE (08:15)
[2018-08-30] MEDS: HEPARIN SOD (PORCINE) 5,000 UNIT/ML VIAL SC SCH ×2 (08:45→21:44)
[2018-08-30] MEDS: PANTOPRAZOLE 40 MG 10ML VIAL IV SCH (08:45)
[2018-08-30] MEDS: AMIODARONE HCL 200 MG TAB PO SCH ×2 (08:45→16:39)
[2018-08-30] MEDS: HYDRALAZINE HCL 25 MG TAB PO SCH ×2 (08:46→16:39)
[2018-08-30] MEDS: CEFEPIME 1GM/NS 0.9% 50 ML 50 ML IV SCH (09:21)
[2018-08-30] MEDS: DEXTROSE 5% 1,000 ML IV SCH ×2 (10:55→17:59)
[2018-08-30] MEDS ORDERED: VANCOMYCIN 1GM/NS 250 ML 250 ML IV ONE (14:00)
[2018-08-30] MEDS ORDERED: FENTANYL CITRATE/PF 100MCG/2 ML INJ ONE (14:55)
--- NOTE | 2018-08-30 16:10 | Diagnostic Imaging Report ---
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 Moser Pre-operative diagnosis: Right lower quadrant fluid collection Post-operative diagnosis: Right lower quadrant fluid collection Conscious Sedation: Versed 0 mg and Fentanyl 50 mcg. The patient's heart rate and pulse oximetry were continuously monitored by the interventional radiology nurse. Blood pressure was monitored at 5 minute intervals. Additional Medications: Lidocaine 1% for local anesthesia Complications: No immediate Estimated blood loss: Minimal Blood products administered: None Specimens: 20 cc serosanguineous fluid Implants: 10 Croatian locking loop drainage catheter Condition at completion: Guarded Disposition: ICU DISCUSSION: Informed consent was obtained from the next of kin/medical decision maker and documented in the medical record after discussion of risks and benefits. The patient was placed in the supine position on the CT couch. A marker grid was placed over the right lower quadrant of the abdomen. Limited CT of the low abdomen confirmed presence of a right lower quadrant fluid collection and a suitable percutaneous approach was identified. The overlying skin was marked then prepped and draped in the standard sterile fashion. 1% lidocaine was infiltrated into the skin and subcutaneous tissues for local anesthesia. Then under intermittent CT guidance an 18-gauge, 10 cm needle was advanced into the fluid collection, with return of serosanguineous fluid. A 0.0 3 5-in. wire was advanced through the needle and coiled within the collection. The needle was removed over the wire, the tract was serially dilated, then a 10 Croatian locking loop drainage catheter was advanced over the wire, which was then removed. The locking loop was positioned within the central aspect of the fluid collection, with appropriate positioning confirmed by limited low abdominal CT. 20 cc of serosanguineous aspirate were obtained and submitted for Gram stain, aerobic and anaerobic culture. The catheter was secured to the skin with monofilament nylon suture and connected to gravity drainage. A sterile dressing was applied. The patient tolerated the procedure well without immediate complication. FINDINGS: Right lower quadrant fluid collection. IMPRESSION: Successful CT-guided percutaneous drainage of a right lower quadrant fluid collection without immediate complication. The catheter should remain to gravity drainage, and should be flushed and aspirated with 5 cc sterile saline every 8 hours. Orders to this effect were placed in the medical record. Signed by: Dr. Anthony Moser M.D. on 08/30/2018 4:07 PM
[2018-08-30] MEDS: BALSAM PERU/CASTOR OIL 60 GM OINT...G. TP SCH (16:37)
[2018-08-31] VITALS (19 sets, daily range): BP systolic 113–147; BP diastolic 40–55
[2018-08-31] MEDS: HYDROCODONE/APAP 5MG-325MG TAB PO PRN (00:30)
[2018-08-31] MEDS: DEXTROSE 5% 1,000 ML IV SCH ×2 (01:49→06:35)
[2018-08-31] MEDS: ONDANSETRON HCL INJ 2MG/ML 2ML 2 MG/ML VIAL IV PRN (03:00)
[2018-08-31] MEDS: MORPHINE SULFATE INJ 4 MG/ML INJ 1ML IV PRN ×2 (03:00→11:45)
[2018-08-31] MEDS: METRONIDAZOLE 500MG/NS 100ML 100 ML IV SCH ×3 (06:28→21:10)
[2018-08-31] MEDS: INSULIN LISPRO 100 UNIT/1 ML 3ML VIAL SQ SCH ×4 (06:32→20:10)
[2018-08-31] MEDS: INSULIN GLARGINE 100 UNITS/ML VIAL SQ SCH (06:33)
[2018-08-31 06:40] LABS: BASOPHILS % 0.2 % (0.0-1.0); EOSINOPHILS # (AUTO) 0.2 (0.0-0.4); EOSINOPHILS % 0.9 % (0.0-6.0); HEMOGLOBIN 7.3 g/dL (12.0-16.0); LYMPHOCYTES # (AUTO) 1.8 (1.0-3.2); LYMPHOCYTES % 8.9 % (18.0-39.1); MEAN CORPUSCULAR HEMOGLOBIN 30.9 pg (28-32); MEAN CORPUSCULAR HGB CONC 30.4 g/dL (31-35); MEAN CORPUSCULAR VOLUME 101.7 fL (81-99); MONOCYTES # (AUTO) 0.9 (0.2-0.8); MONOCYTES % 4.4 % (4.4-11.3); NEUTROPHILS # (AUTO) 16.6 (2.1-6.9); NEUTROPHILS % 83.5 % (38.7-80.0); PLATELET COUNT 174 x10e3/uL (140-360); RED BLOOD COUNT 2.36 x10e6/uL (3.6-5.1); RED CELL DISTRIBUTION WIDTH 14.7 % (11.7-14.4)
[2018-08-31 06:58] LABS: ALBUMIN/GLOBULIN RATIO 0.6 (0.8-2.0); ALKALINE PHOSPHATASE 74 IU/L (40-150); ANION GAP 11.1 mmol/L (8-16); BLOOD UREA NITROGEN 104 mg/dL (7-26); BUN/CREATININE RATIO 34 (6-25); CALCIUM 8.1 mg/dL (8.4-10.2); CARBON DIOXIDE 25 mmol/L (22-29); CHLORIDE 103 mmol/L (98-107); CREATININE, SERUM 3.04 mg/dL (0.57-1.11); EST GLOMERULAR FILTRATION RATE 15 ML/MIN (60-); GLUCOSE 245 mg/dL (74-118); POTASSIUM 4.1 mmol/L (3.5-5.1); SODIUM 135 mmol/L (136-145)
[2018-08-31 07:07] LABS: ALANINE AMINOTRANSFERASE < 6 IU/L (0-55)
[2018-08-31 07:57] LABS: MAGNESIUM 2.1 MG/DL (1.3-2.1); PHOSPHORUS 3.9 MG/DL (2.3-4.7)
[2018-08-31] MEDS: CEFEPIME 1GM/NS 0.9% 50 ML 50 ML IV SCH (09:50)
[2018-08-31] MEDS: HYDRALAZINE HCL 25 MG TAB PO SCH ×2 (09:50→17:00)
[2018-08-31] MEDS: PANTOPRAZOLE 40 MG 10ML VIAL IV SCH (09:50)
[2018-08-31] MEDS: DEXTROSE IV SCH (10:26)
[2018-08-31] MEDS: MULTIVITAMINS IV SCH (10:26)
[2018-08-31] MEDS: SOD CHL IV SCH (10:26)
[2018-08-31] MEDS: BALSAM PERU/CASTOR OIL 60 GM OINT...G. TP SCH (10:27)
[2018-08-31] MEDS: HEPARIN SOD (PORCINE) 5,000 UNIT/ML VIAL SC SCH ×2 (10:28→20:19)
[2018-08-31] MEDS ORDERED: VANCOMYCIN 1GM/NS 250 ML 250 ML IV ONE (10:30)
--- NOTE | 2018-08-31 10:39 | NUR ---
CALL FROM [facility]AN[facility] AT [facility] PT APPROVED BY INSURANCE CALLED DR Larisa MOREIRA AND NOTIFIED HIM OF PT'S ACCEPTANCE DR MOREIRA WANTS TO COME SEE PT FIRST BEFORE WRITING TRANSFER ORDERS FOR [facility] NURSE BETH NOTIFIED
--- NOTE | 2018-08-31 13:39 | NUR ---
DR MOREIRA ROUNDED ON PT AND OK WITH TRANSFER TO [facility] NURSE CALLED TO TELL DR ISLAS THAT PT IS BEING TRANSFERED TO [facility] [place] DR ISLAS SAID NOT TO TRANSFER PT TO [facility] UNTIL HE MAKES ROUNDS KIDNEY FUNCTION WORSENING; IV FLUIDS CHANGED DR WELSH OK WITH TRANSFER
[2018-08-31 14:41] LABS: FREE T4 (FREE THYROXINE) 0.87 ng/dL (0.9-1.8); THYROID STIMULATING HORMONE 2.213 uIU/mL (0.350-4.940)
--- NOTE | 2018-08-31 16:10 | NUR ---
Received patient from ICU via bed, care assumed. Patient is non-verbal able to nod to yes/no questions. Son at the bedside. Vital signs are stable. Will continue to monitor.
--- NOTE | 2018-08-31 16:15 | NUR ---
PT TRANSFERRED TO ROOM 187 RN TO RESUME CARE
[2018-08-31 16:26] LABS: HEMATOCRIT 23.7 % (34.2-44.1); HEMOGLOBIN 7.4 g/dL (12.0-16.0)
--- NOTE | 2018-08-31 16:40 | NUR ---
PT INITIALLY ASSESSED ON WEDNESDAY. REASSESSED TODAY. NO CHANGES NOTED. PLEASE SEE AND CARRY PREVIOUS WOUND CARE ORDERS. Addendum: 08/31/18 at 1645 by Annetta Guerra RN Amended: Links added.
--- NOTE | 2018-08-31 19:14 | NUR ---
RECEIVED REPORTS FROM PREVIOUS SHIFT NURSE, PATIENT IS ON BED, AWAKEN, NO DISTRESS NOTED, IV FLUID AND TUBE FEEDING RUNNING, WILL CONTINUE MONITOR.
[2018-08-31] MEDS ORDERED: INSULIN GLARGINE 100 UNITS/ML VIAL SQ SCH (21:00)
--- NOTE | 2018-08-31 21:05 | Consultation ---
DATE OF CONSULTATION: 08/30/2018 Endocrine Consultation Thank you very much for referring this patient. HISTORY OF PRESENT ILLNESS: This is a 73-year-old white female, who is referred to me for evaluation of uncontrolled diabetes mellitus. The patient had a very eventful course during this hospital stay. Initially, the patient came to the hospital with history of abdominal pain. She underwent appendectomy. Post appendectomy, she had multiple complications including renal failure, sepsis, and acute respiratory failure. During this hospital stay her blood sugars have been fluctuating quite significantly. Her blood sugar jumped up to 644 on 18th of this month. The patient is presently on the tube feedings. She has also significant history of coronary artery disease, status post AICD and status post CABG. She has history of chronic renal failure, but she is not on dialysis at this time. PHYSICAL EXAMINATION: GENERAL: Today, the patient is alert, awake, a little bit apprehensive, VITAL SIGNS: Her heart rate is around 78, blood pressure 130/60 mmHg. HEENT: Essentially unremarkable. Thyroid is palpable. Clinically, she is euthyroid. CHEST: She has scar on the chest from the previous surgery. She also has an open wound on the abdomen. She decreased breath sounds and basilar rales. CARDIAC: . She has bilateral pedal edema. CLINICAL IMPRESSION: Diabetes mellitus type 2 with complications, status post appendectomy, sepsis, coronary artery disease, status post AICD, status post CABG, chronic renal failure. PLAN: The plan at this time is to adjust her insulin dose. We will increase her Lantus at bedtime and also monitor her blood sugars closely and use a sliding scale insulin. We also do a hemoglobin A1c and thyroid function test. Thanks for referring this patient. I will be following this patient with you. MD ALISSA Berry/GEOVANI /[id number]
[2018-09-01 00:19] VITALS: BP 142/44
[2018-09-01] MEDS: SOD CHL IV SCH (00:26)
[2018-09-01] MEDS: MULTIVITAMINS IV SCH (00:26)
[2018-09-01] MEDS: DEXTROSE IV SCH (00:26)
[2018-09-01 04:13] VITALS: BP 122/49
[2018-09-01] MEDS: INSULIN LISPRO 100 UNIT/1 ML 3ML VIAL SQ SCH ×2 (05:28→12:56)
[2018-09-01] MEDS: INSULIN GLARGINE 100 UNITS/ML VIAL SQ SCH (05:32)
[2018-09-01] MEDS: METRONIDAZOLE 500MG/NS 100ML 100 ML IV SCH (05:44)
[2018-09-01] MEDS: CLONIDINE HCL 0.3MG/24 HR PATCH TOP SCH (06:31)
[2018-09-01 09:00] VITALS: BP 163/43
[2018-09-01] MEDS ORDERED: AMIODARONE HCL 200 MG TAB PO SCH (09:00)
--- NOTE | 2018-09-01 11:16 | Diagnostic Imaging Report ---
EXAM: Modified barium swallow with Speech Pathologist INDICATION: ^aspiration precaution ^[id number] ^[id number] COMPARISON: None available. RADIATION DOSE: Fluoroscopy Time: 1.0 min Dose (Kerma) Area Product: 1.89 Gycm2 Air Kerma (AK) value has been reviewed. It is below the limits set by the Radiation Protocol Committee (RPC) committee. FINDINGS: See impression IMPRESSION: Laryngeal penetration and suspected aspiration with thin liquids. Refer to speech pathology report for further details and recommendations. Signed by: Dr. Anthony Moser M.D. on 09/01/2018 11:13 AM
[2018-09-01] MEDS: BALSAM PERU/CASTOR OIL 60 GM OINT...G. TP SCH (11:56)
[2018-09-01] MEDS: PANTOPRAZOLE 40 MG 10ML VIAL IV SCH (12:01)
[2018-09-01] MEDS: HEPARIN SOD (PORCINE) 5,000 UNIT/ML VIAL SC SCH (12:01)
[2018-09-01] MEDS: HYDRALAZINE HCL 25 MG TAB PO SCH (12:01)
[2018-09-01] MEDS: CEFEPIME 1GM/NS 0.9% 50 ML 50 ML IV SCH (12:01)
--- NOTE | 2018-09-01 13:54 | NUR ---
PT NOT TRANSFERED TO [facility] YESTERDAY ; HELD TRANSFER BY DR ISLAS DUE TO WORSENING RENAL FUNCTION DR MOREIRA WROTE TRANSFER ORDER TODAY; DR ISLAS NOTIFIED OF XFER BY NURSE PT'S SON CALLED AND NOTIFIED OF TRANSFER TO [facility] TODAY AND ROOM NUMBER [id number]
--- NOTE | 2018-09-01 17:26 | NUR ---
Patient discharged to [facility], handoff report called to Kristina ALCANTARA @ approximately 3:15 pm.
--- NOTE | 2018-09-01 20:13 | Progress Note ---
DATE: SUBJECTIVE: Ms. Hannah is stable. No new complaint. REVIEW OF SYSTEMS: HEENT: Negative. PULMONARY: Negative. CARDIAC: Negative. MEDICATIONS: The patient is currently on insulin, hydralazine, cefepime daily, and metronidazole. PHYSICAL EXAMINATION: GENERAL: She is currently alert and does not seem to be in acute distress. VITAL SIGNS: Stable. Currently, afebrile. HEENT: Normocephalic. Not icteric. NECK: Supple. CHEST: Clear. HEART: S1 and S2. No S3, S4, or murmur. ABDOMEN: Soft. Bowel sounds present. EXTREMITIES: No edema. LABORATORY DATA: White count 19.89, hemoglobin 7.3, and hematocrit 24. Her creatinine was 3.4. IMPRESSION AND PLAN: A 73-year-old white female with history of diabetes mellitus and sepsis. She was at [facility]. She had appendicitis, ruptured appendix, underwent surgery on August 22, had arrhythmia, had fever and chills. She was started on meropenem. Her blood culture showed Bacteroides. The patient did improve. 1. Sepsis, appendicitis, very slow progress. White count still elevated. 2. Metabolic encephalopathy. 3. History of hypertension, history of coronary artery disease, chronic kidney disease with acute kidney injury, appendicitis with peritonitis with sepsis. Continue cefepime. Continue with Flagyl. I am concerned her white count is slowly getting better, but still elevated. She will probably need prolonged course of antibiotics. She will also need PT/OT. She is going for LTAC. We will follow her over there. Discussed with Dr. Nir Pedersen. MD RODRIGO Balderas/MODL /[id number]
[2018-09-01] MEDS ORDERED: METRONIDAZOLE 500MG/NS 100ML 100 ML IV SCH (22:00)
== END 2018-09-01 17:33 | DRG 853 ==
LOC: ER 09:04 → ERHOLD 13:57 → MED/SURG 15:07 → ICU 08-22 22:25 → IMCU 08-31 16:25 → UNDODISIN 09-01 13:52
PROC: 0DBJ4ZZ Excision of Appendix, Percutaneous Endoscopic Approach (ICD-10-PCS; principal; 2018-08-22 20:08)
PROC: 02HV33Z Insertion of Infusion Device into Superior Vena Cava, Percutaneous Approach (ICD-10-PCS; 2018-08-25)
PROC: 0W9G30Z Drainage of Peritoneal Cavity with Drainage Device, Percutaneous Approach (ICD-10-PCS; 2018-08-30)
DX: A41.50 Gram-negative sepsis, unspecified (principal); I50.23 Acute on chronic systolic (congestive) heart failure; G93.41 Metabolic encephalopathy; N18.5 Chronic kidney disease, stage 5; N17.9 Acute kidney failure, unspecified; I13.2 Hypertensive heart and chronic kidney disease with heart failure and with stage 5 chronic kidney disease, or end stage renal disease; E87.1 Hypo-osmolality and hyponatremia; K35.30 Acute appendicitis with localized peritonitis, without perforation or gangrene; R65.20 Severe sepsis without septic shock; Z99.2 Dependence on renal dialysis; Z86.73 Personal history of transient ischemic attack (TIA), and cerebral infarction without residual deficits; Z95.810 Presence of automatic (implantable) cardiac defibrillator; I25.10 Atherosclerotic heart disease of native coronary artery without angina pectoris; Z95.1 Presence of aortocoronary bypass graft; E11.65 Type 2 diabetes mellitus with hyperglycemia; Z79.899 Other long term (current) drug therapy; Z79.4 Long term (current) use of insulin; Z98.84 Bariatric surgery status
CPT/HCPCS: 36415; 36556; 36600; 49406; 70450; 71045; 71250; 74018; 74176; 74230; 74470; 76937; 80053; 80202; 81001; 82140; 82150; 82270; 82550; 82553; 82607; 82746; 82805; 82948; 83036; 83605; 83690; 83735; 83880; 83921; 84100; 84207; 84425; 84436; 84439; 84443; 84479; 84484; 85007; 85014; 85018; 85025; 85027; 85610; 85651; 85730; 86140; 86592; 87040; 87071; 87075; 87086; 87186; 87205; 87400; 88304; 93005; 93306; 94660; 96372; 97139; 99284; C1729; C1751; C1769; J0360; J0692; J1160; J1644; J1815; J2001; J2270; J2405; J3370; J3480; J7030; J7040; J7050; J7060; J7070

== ENCOUNTER 2019-02-17 11:45 | Observation (INO) | payer MEDICARE ==
[2019-02-09 16:40] LABS: BASOPHILS % 0.4 % (0.0-1.0); EOSINOPHILS # (AUTO) 0.2 (0.0-0.4); EOSINOPHILS % 2.8 % (0.0-6.0); HEMATOCRIT 32.4 % (34.2-44.1); HEMOGLOBIN 10.1 g/dL (12.0-16.0); LYMPHOCYTES # (AUTO) 2.2 (1.0-3.2); LYMPHOCYTES % 31.7 % (18.0-39.1); MEAN CORPUSCULAR HEMOGLOBIN 30.1 pg (28-32); MEAN CORPUSCULAR HGB CONC 31.2 g/dL (31-35); MEAN CORPUSCULAR VOLUME 96.4 fL (81-99); MONOCYTES # (AUTO) 0.6 (0.2-0.8); MONOCYTES % 9.1 % (4.4-11.3); NEUTROPHILS # (AUTO) 3.9 (2.1-6.9); NEUTROPHILS % 55.7 % (38.7-80.0); PLATELET COUNT 200 x10e3/uL (140-360); RED BLOOD COUNT 3.36 x10e6/uL (3.6-5.1); RED CELL DISTRIBUTION WIDTH 12.7 % (11.7-14.4)
--- NOTE | 2019-02-09 16:45 | Diagnostic Imaging Report ---
Exam: PA and lateral chest radiograph Clinical history: Preoperative clearance Findings: There is mild cardiomegaly. There is no evidence of pulmonary consolidation, pleural effusion, or pneumothorax. The patient is status post median sternotomy. The regional osseous structures are unremarkable. Impression: 1. Mild cardiomegaly. Signed by: Dr. Miguel Caldwell MD on 02/09/2019 4:42 PM
[2019-02-09 16:59] LABS: ANION GAP 15.1 mmol/L (8-16); CALCIUM 9.4 mg/dL (8.4-10.2); CREATININE, SERUM 3.08 mg/dL (0.57-1.11)
[2019-02-09 17:00] LABS: POTASSIUM 5.1 mmol/L (3.5-5.1)
[~2019-02-17] VITALS: Ht 177.8 cm; Wt 89.4 kg
--- OUTSIDE RECORDS SUMMARY | 2019-02-17 11:51 | XMS REPORT | Clinical Summary ---
Author Author [facility] [employer] Organization [facility] [employer] Address Unknown Phone Unavailable Care Team Providers Care Lumber Sticker Name Role Phone Amilcar Pedersen MD PCP [...] Use Types Packs/Day Years Used Never Smoker Drinks/Week oz/Week Comments Alcohol Use No Sex Assigned at Date Recorded Not on file Industry Job Start Date Occupation Not on file Not on file Not on file Travel End Travel History Travel Start No recent travel history available. Last Filed Vital Signs Not on file Plan of Treatment Health Maintenance Due Date Last Done Comments BREAST CANCER SCREENING 1995 COLONOSCOPY SCREENING 1995 SHINGLES VACCINES (#1) 1995 65+ PNEUMOCOCCAL VACCINE 2010 (1 of 2 - PCV13) INFLUENZA VACCINE 01/12/2019 Results Not on fileafter 02/16/2018 Insurance Type Payer Benefit Subscriber ID Effective Phone Address Plan / Dates Group HMO/PPO [facility] xxxxxxxxx 2016-P THCARE resent CHOICE/CHO ICE + Advance Directives For more information, please contact: [phone] Patient Associate Director Of Biostatistics Explanation Type Date Recorded Advance Directives, Living Will and Medical Power of Plate Hanger
[2019-02-17] MEDS ORDERED: CEFAZOLIN SOD 1 GM/NS 50ML 100 ML IV ONE (12:03)
[2019-02-17] MEDS ORDERED: BUPIVACAINE HCL 0.5% INJ 30 ML VIAL INJ ONE (13:13)
[2019-02-17] MEDS ORDERED: BACITRACIN 50,000 UNIT VIAL ONE (14:24)
[2019-02-17] MEDS ORDERED: DEXTROSE 50% SYRINGE 50 ML IV PRN (14:45)
[2019-02-17] MEDS ORDERED: NON-FORMULARY MEDICATION (Insulin Detemir (Levemir) 40 UNITS) SQ PRN (14:45)
[2019-02-17] MEDS ORDERED: ACETAMINOPHEN 325 MG TAB PO PRN (14:45)
[2019-02-17] MEDS ORDERED: ONDANSETRON HCL INJ 2MG/ML 2ML 2 MG/ML VIAL IV PRN (14:45)
[2019-02-17] MEDS ORDERED: INSULIN LISPRO 12 UNIT SQ SCH (15:00)
--- OUTSIDE RECORDS SUMMARY | 2019-02-17 15:36 | XMS REPORT | Clinical Summary ---
Author Author [facility] [employer] Organization [facility] Address Unknown Phone Unavailable Care Team Providers Care Metal And Plastic Heater Name Role Phone Amilcar Pedersen MD PCP [...] Phone Address Plan / Dates Group HMO/PPO [facility] xxxxxxxxx 2016-P THCARE resent CHOICE/CHO ICE + Advance Directives For more information, please contact: [phone] Patient Events Manager Explanation Type Date Recorded Advance Directives, Living Will and Medical Power of Zipper Measurer
--- NOTE | 2019-02-17 15:55 | NUR ---
Received patient from PACU. Respiration even and unlabored. Denies pain at this time. Family member at bedside. Call light in reach.
[2019-02-17 16:18] VITALS: BP 152/69
[2019-02-17 16:38] VITALS: BP 152/69
[2019-02-17] MEDS: INSULIN LISPRO 100 UNIT/1 ML 3ML VIAL SQ SCH ×3 (16:58→20:04)
[2019-02-17] MEDS ORDERED: NON-FORMULARY MEDICATION (Bumetanide 2 MG) PO SCH (17:00)
[2019-02-17] MEDS ORDERED: INSULIN GLARGINE 100 UNITS/ML VIAL SQ PRN (17:00)
[2019-02-17] MEDS: HYDROCODONE/APAP 7.5MG-325MG 1 EA TAB PO PRN (17:10)
[2019-02-17] MEDS: GABAPENTIN 300 MG CAP PO SCH ×2 (17:11→20:28)
[2019-02-17] MEDS: CLONIDINE HCL 0.2 MG TAB PO SCH (17:12)
[2019-02-17] MEDS: BUMETANIDE 1 MG TAB PO SCH (17:12)
[2019-02-17] MEDS ORDERED: PROPOFOL IV EMULSION 10 MG/ML 20 ML VIAL ONE (18:22)
[2019-02-17] MEDS ORDERED: DEXAMETHASONE SOD PHOS INJ 4 MG/ML VIAL ONE (18:22)
[2019-02-17] MEDS ORDERED: ONDANSETRON HCL INJ 2MG/ML 2ML 2 MG/ML VIAL ONE (18:22)
[2019-02-17] MEDS ORDERED: LIDOCAINE HCL 2% LOCAL INJ 5 ML SDV VIAL INJ ONE (18:22)
[2019-02-17] MEDS ORDERED: GLYCOPYRROLATE INJ 1MG/ 5 ML SYR ONE (18:22)
[2019-02-17] MEDS ORDERED: SEVOFLURANE INHAL SOLN 250 ML PEN BTL ONE (18:22)
[2019-02-17] MEDS ORDERED: FENTANYL CITRATE/PF 100MCG/2 ML INJ ONE (18:49)
--- NOTE | 2019-02-17 18:50 | NUR ---
Tele called and informed that patient was running sinus ranjan. HR was noted to be in 30s. Nurse went to assess and noted to be at 50 manually. Patient is asymptomatic watching TV. leads and battery have been changed out.
--- NOTE | 2019-02-17 19:00 | NUR ---
RECEIVED PATIENT IN BEDSIDE REPORT. PATIENT RESTING IN BED AT THIS TIME, REPORTS PAIN IS MANAGEABLE. NO S&S OF DISTRESS NOTED. BED LOCKED IN LOWEST POSITION, SIDE RAILS UPX2, CALL LIGHT IN REACH.
--- NOTE | 2019-02-17 19:02 | NUR ---
Patient lying in bed with eyes open. respiration even and unlabored. Report given to jig and fixture builder apprentice. Call light in reach.
[2019-02-17 20:00] VITALS: BP 122/60
[2019-02-17] MEDS: CEFAZOLIN SOD 1 GM/NS 50ML 50 ML IV SCH (20:28)
[2019-02-17 20:57] VITALS: BP 122/60
[2019-02-17] MEDS ORDERED: ATORVASTATIN 10 MG TAB PO SCH (21:00)
--- NOTE | 2019-02-17 21:29 | Operative Report ---
DATE OF PROCEDURE: 02/17/2019 SURGEON: Anthony Cotton MD PREOPERATIVE DIAGNOSIS: Recurrent incisional hernia. POSTOPERATIVE DIAGNOSIS: Recurrent incisional hernia. PROCEDURE: Repair recurrent incisional hernia with mesh. FOREST PRODUCTS TEACHER: None. ANESTHESIA: General. INDICATIONS AND FINDINGS: The patient is a 73-year-old female with previous hernia repair, presented with complaints of pain to the site of the previous hernia repair. Workup revealed a recurrent hernia. There was a hernia at the site of previous repair of the fascial defect, it was about 1.5 cm in diameter. There was omentum within the hernia sac, which was not incarcerated. TECHNIQUE: After adequate general anesthesia, the patient in supine position, the abdomen was prepped and draped in sterile fashion with ChloraPrep solution. Transverse incision made through the site of the previous hernia repair and carried down through subcutaneous tissue. The umbilicus was dissected away. There was a hernia just to the right of the umbilicus at the site of the previous hernia repair. Hernia sac was identified, was dissected free down to the fascia beneath the fascia. Redundant hernia sac was excised. The fascial defect was about 1.5 cm in diameter. The defect was closed transversely with a running suture of 0 prolene. Marlex mesh was then fashioned appropriate size and placed over the closed defect within the abdominal wall musculature which was beneath the superficial fascia, but above the muscle. This was sutured in place with a running suture of 0 prolene. The mesh had been soaked in antibiotic solution. Once the mesh was in place, thinned out edges of the superficial fascia were closed over the mesh with a running suture of 3-0 Vicryl. The umbilicus was then sutured to the fascia using 4-0 Vicryl. The subcutaneous tissue closed with running suture of 3-0 Vicryl and the skin was closed with a running subcuticular suture of 4-0 Vicryl. Dermabond and sterile dressing were applied. The patient tolerated the procedure well. Estimated blood loss was 10 mL. There were no complications. All counts were correct. The patient was taken to the recovery room in satisfactory condition. Anthony Cotton MD DWG/MODL /[id number] cc: Javed Whitaker DO
[2019-02-17] MEDS: MORPHINE SULFATE INJ 4 MG/ML INJ 1ML IV PRN (22:10)
[2019-02-18 00:16] VITALS: BP 135/62
[2019-02-18] MEDS: CEFAZOLIN SOD 1 GM/NS 50ML 50 ML IV SCH ×2 (01:53→08:09)
[2019-02-18] MEDS: MORPHINE SULFATE INJ 4 MG/ML INJ 1ML IV PRN (03:26)
--- NOTE | 2019-02-18 03:30 | NUR ---
ASSISTED PATIENT TO RESTROOM, PATIENT USED OWN WALKER, STEADY, SLOW GAIT NOTED. PATIENT HAS VOIDED TWICE TONIGHT. RETURNED TO BED. SCDS ATTACHED, BED ALARM ON. BED LOCKED IN LOWEST POSITION, SIDE RAILS UPX2, CALL LIGHT IN REACH.
[2019-02-18 05:51] VITALS: BP 106/55
--- NOTE | 2019-02-18 07:00 | NUR ---
Received patient lying in bed with eyes open. respiration even and unlabored without SOB. Call light in reach.
[2019-02-18] MEDS: HYDROCODONE/APAP 7.5MG-325MG 1 EA TAB PO PRN ×2 (07:07→13:33)
[2019-02-18] MEDS ORDERED: LINACLOTIDE 145 MCG CAPSULE PO SCH (07:30)
[2019-02-18 07:41] VITALS: BP 130/73
[2019-02-18 07:45] VITALS: BP 130/73
[2019-02-18] MEDS: INSULIN LISPRO 100 UNIT/1 ML 3ML VIAL SQ SCH ×4 (07:54→12:00)
[2019-02-18] MEDS: BUMETANIDE 1 MG TAB PO SCH (08:09)
[2019-02-18] MEDS: GABAPENTIN 300 MG CAP PO SCH (08:09)
[2019-02-18] MEDS ORDERED: FOLIC ACID 1 MG TAB PO SCH (09:00)
[2019-02-18] MEDS ORDERED: FERROUS SULFATE 325 MG TAB PO SCH (09:00)
[2019-02-18] MEDS: CLONIDINE HCL 0.2 MG TAB PO SCH (09:00)
[2019-02-18] MEDS ORDERED: NON-FORMULARY MEDICATION (Calcium Carbonate (Calcium) 600 MG) PO SCH (09:00)
[2019-02-18] MEDS ORDERED: FLUOXETINE HCL 20 MG CAP PO SCH (09:00)
[2019-02-18] MEDS ORDERED: CALCIUM CARBONATE 500 MG CHEWABLE TABS PO SCH (09:00)
[2019-02-18] MEDS ORDERED: LINZESS 145 MCG PO SCH (09:00)
[2019-02-18] MEDS ORDERED: AMLODIPINE BESYLATE 5 MG TAB PO SCH (09:00)
[2019-02-18] MEDS ORDERED: FOLIC ACID 800 MG PO SCH (09:00)
[2019-02-18] MEDS ORDERED: ASPIRIN 81 MG CHEW TAB PO SCH (09:00)
[2019-02-18 12:16] VITALS: BP 131/58
[2019-02-18] MEDS ORDERED: ULTRAM50 MG PO (13:25)
--- NOTE | 2019-02-18 13:55 | NUR ---
Patient is to be discharge to home today. IV line to right hand discontinued. IV catheter intact.
--- NOTE | 2019-02-18 14:11 | NUR ---
Patient is transported via wheelchair to private vehicle. Respiration even and unlabored without SOB. Belongings are with family member and patient.
--- NOTE | 2019-02-18 17:58 | Consultation ---
DATE OF CONSULTATION: Internal Medicine Consultation HISTORY OF PRESENT ILLNESS: The patient is a 73-year-old female with past medical history positive for hypertension, diabetes, coronary artery disease, OH, and CVA in the past, came here for abdominal hernia repair by Dr. Cotton. Internal Medicine consultation was requested by him because of bradycardia. The patient was taking metoprolol. We are going to discontinue metoprolol. Heart rate right now is in between 50s and 60 per minute. REVIEW OF SYSTEMS: CARDIOVASCULAR: No chest pain or palpitation. RESPIRATORY: No shortness of breath. No cough. GASTROINTESTINAL: No nausea or vomiting. No diarrhea. GENITOURINARY: No frequency or dysuria. ALLERGIES: SHE IS ALLERGIC TO LEVAQUIN. PAST MEDICAL HISTORY: Coronary artery disease, history of OH, CVA in the past, history of hypertension, and history of diabetes. PHYSICAL EXAMINATION: HEART: Showed regular rhythm, around 60 per minute. Normal S1 and S2 sound. LUNGS: Clear bilaterally. EXTREMITIES: Show no evidence of cyanosis or hematoma. ABDOMEN: Soft. Mild tenderness on the surgical site. LABORATORY DATA: On the BMP; sodium 135, potassium 5.1, chloride 96, CO2 29, BUN 51, creatinine 3.08, and glucose 168. On the CBC; white blood count 7.03, hemoglobin 10.1, hematocrit 32.4, and platelet count 200,000. IMPRESSION: 1. Hypertension. 2. Uncontrolled diabetes mellitus type 2 with chronic renal insufficiency. 3. Chronic renal insufficiency, stage 3 secondary to diabetic nephropathy most likely. 4. Anemia of chronic disease, most likely secondary to chronic renal insufficiency. 5. Bradycardia. 6. Coronary artery disease. PLAN OF TREATMENT: We are going to recommend the patient to continue metoprolol because of bradycardia. Continue amlodipine 5 mg daily, aspirin 81 mg daily, clonidine 0.2 mg twice a day, ferrous sulfate 325 mg daily, Tylenol 325 mg q.4 hours as needed, Bumex 2 mg twice a day, Lipitor 10 mg at bedtime, and Zofran 4 mg q.4 hours as needed. Continue monitoring blood sugar before meals and at bedtime. Continue Linzess 145 mcg daily, gabapentin 300 mg 3 times a day, fluoxetine 20 mg daily, and folic acid 1 mg daily. She is taking Humalog 12 units with meals 3 times a day. Continue [place] 1 tablet q.4 hours as needed, calcium carbonate 500 mg daily, and Lantus 40 units at bedtime. Diet of course is going to be renal diabetic diet. The patient has been discharged by the surgeon today. She is going to follow up with the surgeon, Dr. Cotton in a week. Continue monitoring heart rate at home. The patient is told to discontinue metoprolol. Monitor blood pressure carefully. Call or consult ER immediately should symptoms recur. MD BRIAN Silva/GEOVANI /[id number]
== END 2019-02-18 14:11 | disposition home or self-care (01) ==
LOC: OR 11:45 → PACU V 14:51 → MED/SURG 15:53
PROVIDERS: ADMIT Surgery; ATTEND Surgery
DX: K43.2 Incisional hernia without obstruction or gangrene (principal); I10 Essential (primary) hypertension; I25.2 Old myocardial infarction; Z86.73 Personal history of transient ischemic attack (TIA), and cerebral infarction without residual deficits; M19.90 Unspecified osteoarthritis, unspecified site; E11.65 Type 2 diabetes mellitus with hyperglycemia; E11.22 Type 2 diabetes mellitus with diabetic chronic kidney disease; I12.9 Hypertensive chronic kidney disease with stage 1 through stage 4 chronic kidney disease, or unspecified chronic kidney disease; N18.3 Chronic kidney disease, stage 3 (moderate); Z79.4 Long term (current) use of insulin; E11.21 Type 2 diabetes mellitus with diabetic nephropathy; D63.1 Anemia in chronic kidney disease; R00.1 Bradycardia, unspecified; I25.10 Atherosclerotic heart disease of native coronary artery without angina pectoris; Z95.1 Presence of aortocoronary bypass graft; Z95.810 Presence of automatic (implantable) cardiac defibrillator
CPT/HCPCS: 36415 ×3; 49565; 49568; 71046; 80048; 82948 ×2; 85025; 88302; 93005; C1781; G0378 ×2; J0690 ×2; J1100; J2001; J2270 ×2; J2405; J2704; J3010; J3490; 88312

== ENCOUNTER → 2019-03-08 | Outpatient (CLI) | payer MEDICARE ==
[~2019-03-08] MED LIST changes: +DIATRIZOATE MEGL/DIATRIZOA SOD 30 ML BTL PO ONE
--- NOTE | 2019-03-08 15:19 | Diagnostic Imaging Report ---
EXAM: CT Abdomen and Pelvis WITHOUT intravenous contrast INDICATION: Hernia, abdominal pain COMPARISON: CT abdomen pelvis of 08/25/2018 TECHNIQUE: Abdomen and pelvis were scanned utilizing a multidetector helical scanner from the lung base to the pubic symphysis without administration of IV contrast. Coronal and sagittal reformations were obtained. IV CONTRAST: None ORAL CONTRAST: Gastrografin COMPLICATIONS: None RADIATION DOSE: Total DLP: 786.2 mGy*cm Dose modulation, iterative reconstruction, and/or weight based adjustment of the mA/kV was utilized to reduce the radiation dose to as low as reasonably achievable. FINDINGS: LOWER THORAX: 3 mm right middle lobe pulmonary nodule. Bibasilar dependent subsegmental atelectasis. Multichamber cardiomegaly. Atherosclerotic coronary artery calcifications. HEPATOBILIARY: No focal hepatic lesions. No biliary ductal dilatation. The gallbladder appears unremarkable. SPLEEN: No splenomegaly. PANCREAS: No focal masses or ductal dilatation. ADRENALS: No adrenal nodules. KIDNEYS/URETERS: No hydronephrosis, stones, or solid mass lesions. PELVIC ORGANS/BLADDER: Obscured due to streak artifact from right total hip arthroplasty. No definite focal abnormality. PERITONEUM / RETROPERITONEUM: No free air or fluid. LYMPH NODES: No lymphadenopathy. VESSELS: Diffuse atherosclerotic calcifications of the nonaneurysmal abdominal aorta and major branches. GI TRACT: Status post gastric lap band placement. No abnormal bowel wall thickening. No bowel obstruction. Extensive sigmoid diverticulosis with no CT evidence of diverticulitis. Right-sided diverticulosis. BONES AND SOFT TISSUES: Right total hip replacement. Diffuse osteopenia. No acute osseous injury. Degenerative changes of the visualized spine with grade 1 retrolisthesis at T11-L2. IMPRESSION: Status post gastric lap band placement no abnormal bowel wall thickening or bowel obstruction. Right and left diverticulosis without CT evidence of diverticulitis. Diffuse atherosclerotic calcifications including of the coronary arteries. Signed by: Timo Shah MD on 03/08/2019 3:16 PM
== END ==
LOC: CT 12:42
PROVIDERS: ATTEND Surgery
DX: R10.31 Right lower quadrant pain (principal)
CPT/HCPCS: 74176

== ENCOUNTER → 2019-09-28 | Day surgery (SDC) | payer MEDICARE ==
[~2019-09-28] MED LIST changes: +ACETAMINOPHEN/CODEINE 300MG - 30MG TAB ONE; +BUPIVACAINE HCL 0.5% INJ 30 ML VIAL INJ ONE; +CEFAZOLIN SOD 1 GM/NS 50ML 100 ML IV ONE; +DEXAMETHASONE SOD PHOS INJ 4 MG/ML VIAL ONE; -DIATRIZOATE MEGL/DIATRIZOA SOD 30 ML BTL PO ONE; +EPHEDRINE SULFATE INJ 50 MG/ML VIAL ONE; +FENTANYL CITRATE/PF 100MCG/2 ML INJ ONE; +LIDOCAINE HCL 2% JELLY 5 ML TUBE ONE; +LIDOCAINE HCL 2% LOCAL INJ 5 ML SDV VIAL INJ ONE; +MIDAZOLAM HCL 2 MG/2 ML VIAL ONE; +ONDANSETRON HCL INJ 2MG/ML 2ML 2 MG/ML VIAL ONE; +PROPOFOL IV EMULSION 10 MG/ML 20 ML VIAL ONE; +ROCURONIUM BROMIDE 10 MG/ML 5ML VIAL IV ONE; +SEVOFLURANE INHAL SOLN 250 ML PEN BTL ONE; +SUGAMMADEX SODIUM 200 MG/2 ML VIAL IV ONE
[2019-09-28 08:19] LABS: BASOPHILS % 0.6 % (0.0-1.0); EOSINOPHILS # (AUTO) 0.2 (0.0-0.4); EOSINOPHILS % 3.1 % (0.0-6.0); HEMATOCRIT 31.4 % (34.2-44.1); HEMOGLOBIN 9.4 g/dL (12.0-16.0); LYMPHOCYTES # (AUTO) 1.7 (1.0-3.2); LYMPHOCYTES % 23.8 % (18.0-39.1); MEAN CORPUSCULAR HEMOGLOBIN 29.8 pg (28-32); MEAN CORPUSCULAR HGB CONC 29.9 g/dL (31-35); MEAN CORPUSCULAR VOLUME 99.7 fL (81-99); MONOCYTES # (AUTO) 0.6 (0.2-0.8); MONOCYTES % 8.5 % (4.4-11.3); NEUTROPHILS # (AUTO) 4.5 (2.1-6.9); NEUTROPHILS % 63.6 % (38.7-80.0); PLATELET COUNT 153 x10e3/uL (140-360); RED BLOOD COUNT 3.15 x10e6/uL (3.6-5.1); RED CELL DISTRIBUTION WIDTH 14.6 % (11.7-14.4)
[2019-09-28 09:04] LABS: POTASSIUM 4.5 mmol/L (3.6-5.1)
[2019-09-28 09:38] LABS: ANION GAP 14.6 mmol/L (8-16); CALCIUM 9.2 mg/dL (8.4-10.2); CREATININE, SERUM 2.24 mg/dL (0.57-1.11)
[2019-09-28 10:45] VITALS: BP 164/67
--- NOTE | 2019-09-28 11:18 | Operative Report ---
DATE OF PROCEDURE: 09/28/2019 SURGEON: Anthony Cotton MD PREOPERATIVE DIAGNOSES: 1. Infected lap band port with erosion of port. 2. Soft tissue mass, right medial thigh. POSTOPERATIVE DIAGNOSES: 1. Infected lap band port with erosion of port. 2. Soft tissue mass, right medial thigh. 3. 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 PROCEDURES: 1. Laparoscopic removal of lap band catheter. 2. Laparoscopic closure of colonic fistula. 3. Removal of lap band port. 4. Excision of mass from the left medial thigh 15 cm. OVEN ROASTER: None. ANESTHESIA: General. INDICATIONS AND FINDINGS: The patient is a 74-year-old female, who presented with complaints of lap band port eroding through the skin. She had a lap band placed 13 years ago. She also complains of mass on the right thigh, which had increased in size. At Surgery, the patient was found to have a lap band port eroding through the skin laparoscopy revealed that the catheter from the port was eroding into the transverse colon, which required closure of the fistula from the colon. The port was removed. However, the lap band itself could not be identified. The catheter seen to enter behind the bowel, area on the stomach which was appeared that the band was eroding into the gastric wall and could not easily be removed laparoscopically, so this was left in place. In the right medial thigh, there was a mass which was found to be cystic, which was 15 cm in diameter within the subcutaneous tissue. TECHNIQUE: After adequate general endotracheal anesthesia, the patient in supine position, the abdomen and right thigh were prepped and draped in sterile fashion. Betadine solution on the left side of the abdomen away from the area of previous surgery. Skin and subcutaneous tissue were infiltrated with 0.5% Marcaine, transverse incision was made. Abdominal wall was elevated and Veress needle was introduced. Pneumoperitoneum was then created. A 10 mm trocar and cannula was then passed through this wound. Laparoscopic camera was introduced. Initial laparoscopy revealed that the transverse colon was adherent to the abdominal wall in the area where the catheter entered into the abdomen. The catheter was densely adherent to the colon in this area and appeared to have tissue surrounding it. The area around the stomach where the lap band should have been was examined and the lap band was not seen. There were adhesions around the area and two 5 mm trocars and cannulas were placed. In the left side of the abdomen, adhesions around the area where the lap band should have been were divided. The lap band, however, could not be seen, but it appeared to be something within the gastric wall. At this point, it was decided to free the catheter from the colon. The colon was free from abdominal wall. Catheter was eroding into the colon as the colon was free, it was found that there was a fistula from the colon with the colon completely freed. The catheter was dissected free as much as possible and as this was dissected free, it broke, was seen to be going behind the colon and then could not be identified. The port which had been away from the skin was then removed with attached catheter. There was a large area of outpouching from the colon where the fistula been. The fissures opening was about 1 cm. One of the 5 mm cannula site was changed to a 12 mm cannula and the colon fistula was closed with resection of the fistula using an Endo-KEESHA stapler. Care was taken not to narrow the colon. This colon fistula was brought out through the 12 mm cannula site. The remaining lap band could not be identified, it was going behind the bowel and seem like the band itself was eroding into the stomach site. At this point in order to remove the band, but if required open surgery since the band itself was not causing any symptoms, it is decided to leave this in place. There was no evidence of area that had been infected, had already been removed. The remaining catheter was away from the area of infection that would not cause a problem. The peritoneal cavity was irrigated with saline, inspected for hemostasis which was seen to be adequate. Instruments and cannulas were then removed. The trocar sites were closed with 0 Vicryl to the fascia to larger trocar sites. Skin to all wounds closed with chinmay. Sterile dressings were applied. Attention was then turned to the mass in the right medial thigh. This was about 15 cm in diameter. Incision was made over the mass carried down the subcutaneous tissue. The mass was found to be cystic. It contained serous fluid. This was drained and the mass was completely excised from the surrounding tissues. Hemostasis was achieved with electrocautery. Wound was infiltrated with 0.5% Marcaine. A 19-Tamazight Dmitriy drain was placed into the wound through a separate stab wound incision. The wound was then closed with 2-0 Vicryl subcutaneous tissue and chinmay for the skin. Sterile dressing was applied. The patient tolerated the procedure well, estimated blood loss was 20 mL. There were no complications. All counts were correct and the patient was taken to the recovery room in satisfactory condition. MD ROBINA Schultz/GEOVANI /[id number] cc: Khanh Whitaker DO
== END | disposition home or self-care (01) ==
LOC: OR 06:47
PROVIDERS: ATTEND Surgery
DX: T85.79XA Infection and inflammatory reaction due to other internal prosthetic devices, implants and grafts, initial encounter (principal); K63.2 Fistula of intestine; S70.11XA Contusion of right thigh, initial encounter; E11.9 Type 2 diabetes mellitus without complications; I25.2 Old myocardial infarction; Y73.8 Miscellaneous gastroenterology and urology devices associated with adverse incidents, not elsewhere classified; X58.XXXA Exposure to other specified factors, initial encounter; Z79.82 Long term (current) use of aspirin; Z79.4 Long term (current) use of insulin; Z86.73 Personal history of transient ischemic attack (TIA), and cerebral infarction without residual deficits
CPT/HCPCS: 11406; 12035; 36415; 44238; 80048; 82948; 85025; 88305; 93005; J0690; J1100; J2001 ×2; J2250; J2405; J2704; J3010; 88304

== ENCOUNTER 2019-12-15 20:33 | Emergency (ER) | payer MEDICARE, OTHER ==
[~2019-12-15] VITALS: Ht 177.8 cm; Wt 76.2 kg
[~2019-12-15 20:33] MED LIST changes: -ACETAMINOPHEN/CODEINE 300MG - 30MG TAB ONE; -BUPIVACAINE HCL 0.5% INJ 30 ML VIAL INJ ONE; -CEFAZOLIN SOD 1 GM/NS 50ML 100 ML IV ONE; -DEXAMETHASONE SOD PHOS INJ 4 MG/ML VIAL ONE; -EPHEDRINE SULFATE INJ 50 MG/ML VIAL ONE; -FENTANYL CITRATE/PF 100MCG/2 ML INJ ONE; -LIDOCAINE HCL 2% JELLY 5 ML TUBE ONE; -LIDOCAINE HCL 2% LOCAL INJ 5 ML SDV VIAL INJ ONE; -MIDAZOLAM HCL 2 MG/2 ML VIAL ONE; -ONDANSETRON HCL INJ 2MG/ML 2ML 2 MG/ML VIAL ONE; -PROPOFOL IV EMULSION 10 MG/ML 20 ML VIAL ONE; -ROCURONIUM BROMIDE 10 MG/ML 5ML VIAL IV ONE; -SEVOFLURANE INHAL SOLN 250 ML PEN BTL ONE; -SUGAMMADEX SODIUM 200 MG/2 ML VIAL IV ONE
--- NOTE | 2019-12-15 21:21 | Emergency Department Note ---
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 Any updates have been documented here. Past Medical History Recent Fever: No Clinical Suspicion of Infectio: No New/Unexplained Change in Ment: No Past Medical History: Hypertension, Diabetes, CHF, CAD, Anemia, Depression, Hyperlipedemia, Chronic Kidney Disease Other Medical History: NEUROPATHY TRIPLE BYPASS Past Surgical History: Pacer/AICD, Knee Replacement Other Surgery: DEFIB PLACEMENT L SIDE, L FISTULA GROWING FOR FUTURE HEMODIALYSIS Other Last Tetanus: NA Review of Systems Review of Systems Constitutional: Reports no symptoms EENTM: Reports no symptoms Cardiovascular: Reports as per HPI, Reports chest pain Respiratory: Reports no symptoms Gastrointestinal: Reports no symptoms Genitourinary: Reports no symptoms Musculoskeletal: Reports no symptoms Integumentary: Reports no symptoms Neurological: Reports no symptoms Psychological: Reports no symptoms Endocrine: Reports no symptoms Hematological/Lymphatic: Reports no symptoms Physical Exam Related Data Allergies: Coded Allergies: levofloxacin (Verified Allergy, Unknown, REACTION RESEMBLES A STROKE, 03/08/18) Triage Vital Signs Vital Signs Date Time Temp Pulse Resp B/P (MAP) Pulse Ox O2 Delivery O2 Flow Rate FiO2 12/15/19 20:37 100.1 54 18 147/50 100 Room Air Physical Exam CONSTITUTIONAL HENT EYES NECK PULMONARY CARDIOVASCULAR GASTROINTESTINAL GENITOURINARY SKIN MUSCULOSKELETAL NEUROLOGICAL PSYCHOLOGICAL Assessment & Plan Assessment & Plan Final Impression: (1) Chest pain Depart Disposition: HOME, SELF-CARE Last Vital Signs Date Time Temp Pulse Resp B/P (MAP) Pulse Ox O2 Delivery O2 Flow Rate FiO2 12/15/19 20:37 100.1 54 18 147/50 100 Room Air Home Meds Reported Medications Insulin Detemir (LEVEMIR) 100 Unit/1 Ml Vial, 40 UNITS SQ ACS PRN for BLOOD SUGAR give if BS is 200 or greater 03/08/18 Insulin Lispro (HUMALOG) 100 Unit/1 Ml Insuln.pen, 12 UNITS SQ TID 03/08/18 [Hydrocodone] 10/,325 TAB No Conflict Check, 10 MG PO Q12H PRN for BREAKTHROUGH PAIN 03/08/18 Diclofenac Sodium (VOLTAREN) 100 Gm Gel..gram., TOP PRN THERAPEUTICALLY SUBSTITUTED WITH IBUPROFEN 600MG 03/08/18 [Lidocaine Patch] 3 No Conflict Check, TD PRN 03/08/18 Calcium Carbonate (CALCIUM) 600 Mg Tablet, 600 MG PO DAILY 03/08/18 Calcium/Magnesium/Zinc ([id number]-[id number]-MIMN TAB) 1 Each Tablet, PO DAILY 03/08/18 [Folic Acid] 800 MG No Conflict Check, 800 MCG PO DAILY 03/08/18 Gabapentin (GABAPENTIN) 300 Mg Capsule, 300 MG PO TID, #60 CAP 03/08/18 [Megared] No Conflict Check, PO DAILY 03/08/18 Aspirin (ASPIR 81) 81 Mg Tablet.dr, 81 MG PO DAILY 03/08/18 Bumetanide (BUMETANIDE) 2 Mg Tablet, 2 MG PO BID 03/08/18 Ferrous Sulfate (FERROUS SULFATE) 325 Mg Tablet.dr, 325 MG PO DAILY 03/08/18 Fluoxetine Hcl (FLUOXETINE HCL) 20 Mg Capsule, 20 MG PO DAILY, #30 CAP 03/08/18 Clonidine Hcl (CLONIDINE HCL) 0.2 Mg Tablet, 0.2 MG PO BID 03/08/18 [Linzess] No Conflict Check, 145 MCG PO DAILY EVERY OTHER DAY 03/08/18 Amlodipine Besylate (AMLODIPINE BESYLATE) 5 Mg Tablet, 5 MG PO DAILY, #30 TAB 07/18/15 Atorvastatin Calcium (ATORVASTATIN CALCIUM) Unknown Strength Tablet, 20 MG PO HS, TAB 06/20/15 MARJORIE ARCINIEGA, Dec 15, 2019 21:21
--- NOTE | 2019-12-15 21:36 | Diagnostic Imaging Report ---
EXAMINATION: CHEST SINGLE (PORTABLE) INDICATION: Chest pain COMPARISON: 11/10/2019 FINDINGS: AP view TUBES and LINES: Left mechanical cardiac device. LUNGS: Ill-defined nodular opacity of the left hilar region, more distinct on today's examination when compared to the previous study. The right lung is clear. PLEURA: No pleural effusion or pneumothorax. HEART AND MEDIASTINUM: The cardiomediastinal silhouette is unchanged. BONES AND SOFT TISSUES: No acute osseous lesion. Sternotomy wires. Soft tissues are unremarkable. UPPER ABDOMEN: No free air under the diaphragm. IMPRESSION: Ill-defined left hilar nodular opacity, more distinct on today's examination. This may reflect prominent pulmonary vasculature; however, a routine CT scan of the chest with contrast is recommended when clinically feasible to exclude underlying mass. Signed by: Navi Gongora MD on 12/15/2019 9:32 PM
[2019-12-15 22:54] LABS: BASOPHILS % 0.4 % (0.0-1.0); EOSINOPHILS # (AUTO) 0.5 (0.0-0.4); EOSINOPHILS % 4.3 % (0.0-6.0); HEMATOCRIT 32.5 % (34.2-44.1); HEMOGLOBIN 9.6 g/dL (12.0-16.0); LYMPHOCYTES # (AUTO) 2.3 (1.0-3.2); LYMPHOCYTES % 21.5 % (18.0-39.1); MEAN CORPUSCULAR HEMOGLOBIN 28.9 pg (28-32); MEAN CORPUSCULAR HGB CONC 29.5 g/dL (31-35); MEAN CORPUSCULAR VOLUME 97.9 fL (81-99); MONOCYTES # (AUTO) 0.8 (0.2-0.8); MONOCYTES % 7.3 % (4.4-11.3); NEUTROPHILS # (AUTO) 7.1 (2.1-6.9); NEUTROPHILS % 66.1 % (38.7-80.0); PLATELET COUNT 217 x10e3/uL (140-360); RED BLOOD COUNT 3.32 x10e6/uL (3.6-5.1)
[2019-12-15 23:10] LABS: ALBUMIN 3.1 g/dL (3.5-5.0); ALBUMIN/GLOBULIN RATIO 0.6 (0.8-2.0); ANION GAP 17.2 mmol/L (8-16); CALCIUM 9.2 mg/dL (8.4-10.2); CREATININE, SERUM 1.82 mg/dL (0.57-1.11); POTASSIUM 5.2 mmol/L (3.5-5.1)
[2019-12-15 23:17] LABS: CREATINE KINASE MB 1.1 ng/mL (0-5.0)
--- NOTE | 2019-12-16 02:48 | NUR ---
REPORT GIVEN TO MARICRUZ COLIN AT [facility]
== END 2019-12-16 04:13 | disposition other institution (70) ==
LOC: ER 21:09
DX: R07.9 Chest pain, unspecified (principal); E11.22 Type 2 diabetes mellitus with diabetic chronic kidney disease; I12.9 Hypertensive chronic kidney disease with stage 1 through stage 4 chronic kidney disease, or unspecified chronic kidney disease; N18.9 Chronic kidney disease, unspecified; I50.9 Heart failure, unspecified; E78.5 Hyperlipidemia, unspecified; I25.10 Atherosclerotic heart disease of native coronary artery without angina pectoris; Z95.1 Presence of aortocoronary bypass graft; Z11.59 Encounter for screening for other viral diseases
CPT/HCPCS: 36415; 71045; 80053; 82550; 82553; 83880; 84484; 85025; 87635; 93005; 99284

== ENCOUNTER 2020-03-14 14:03 | Inpatient (IN) | payer MEDICARE ==
[2020-03-14] MEDS ORDERED: CEFEPIME HCL 1 GM VIAL IV SCH (19:45)
[2020-03-14] MEDS: VANCOMYCIN 1GM/NS 250 ML 250 ML IV SCH (19:45)
[2020-03-14 20:00] VITALS: BP 135/65
[2020-03-14 20:46] VITALS: BP 135/65
[2020-03-14] MEDS: CEFEPIME 1GM/NS 0.9% 50 ML 50 ML IV SCH (21:00)
[2020-03-14] MEDS ORDERED: ELIQUIS2.5 MG PO (21:03)
[2020-03-14] MEDS ORDERED: TUMERIC PO (21:05)
[2020-03-14] MEDS ORDERED: IRON PO (21:08)
[2020-03-14] MEDS ORDERED: NIACIN500 M2 PO (21:08)
[2020-03-14] MEDS ORDERED: VITAMIN C1000 MG PO (21:08)
[2020-03-14] MEDS ORDERED: DULCOLAX STOOL100 MG PO (21:08)
[2020-03-14] MEDS ORDERED: D3 PO (21:09)
[2020-03-14] MEDS ORDERED: LINZESS 145 MCG PO SCH ×2 (21:30→22:00)
[2020-03-14] MEDS ORDERED: NON-FORMULARY MEDICATION (Insulin Detemir (Levemir) 40 UNITS) SQ PRN ×2 (21:30→22:00)
[2020-03-14] MEDS ORDERED: HYDROCODONE PO PRN ×2 (21:30→22:00)
[2020-03-14] MEDS ORDERED: INSULIN LISPRO 12 UNIT SQ SCH ×2 (21:30→22:00)
[2020-03-14 21:32] LABS: BASOPHILS # (AUTO) 0.1 (0.0-0.1); BASOPHILS % 0.7 % (0.0-1.0); EOSINOPHILS # (AUTO) 0.3 (0.0-0.4); EOSINOPHILS % 3.2 % (0.0-6.0); HEMOGLOBIN 8.8 g/dL (12.0-16.0); LYMPHOCYTES # (AUTO) 1.8 (1.0-3.2); LYMPHOCYTES % 20.3 % (18.0-39.1); MEAN CORPUSCULAR HEMOGLOBIN 29.6 pg (28-32); MEAN CORPUSCULAR HGB CONC 30.3 g/dL (31-35); MEAN CORPUSCULAR VOLUME 97.6 fL (81-99); MONOCYTES # (AUTO) 0.9 (0.2-0.8); NEUTROPHILS # (AUTO) 5.9 (2.1-6.9); NEUTROPHILS % 65.6 % (38.7-80.0); PLATELET COUNT 191 x10e3/uL (140-360); RED BLOOD COUNT 2.97 x10e6/uL (3.6-5.1); RED CELL DISTRIBUTION WIDTH 14.6 % (11.7-14.4)
[2020-03-14 21:53] LABS: ALBUMIN 3.5 g/dL (3.5-5.0); ALBUMIN/GLOBULIN RATIO 0.9 (0.8-2.0); CREATININE, SERUM 2.28 mg/dL (0.57-1.11)
[2020-03-14 22:00] VITALS: BP 135/65
[2020-03-14] MEDS: HYDROCODONE/APAP 10MG-325MG TAB PO PRN (22:55)
[2020-03-14] MEDS ORDERED: HYDROCODONE/APAP 10MG-325MG TAB ONE (23:05)
[2020-03-14] MEDS ORDERED: SODIUM CHLORIDE 0.9% 250ML 250 ML ONE (23:07)
[2020-03-15] VITALS (8 sets, daily range): BP systolic 121–133; BP diastolic 48–71
[2020-03-15] MEDS ORDERED: KETOROLAC TROMETHAMINE 30 MG/ML VIAL IV STA (00:43)
[2020-03-15] MEDS: AMLODIPINE BESYLATE 5 MG TAB PO SCH (09:00)
[2020-03-15] MEDS ORDERED: D3 PO SCH (09:00)
[2020-03-15] MEDS ORDERED: TUMERIC 500 MG PO SCH (09:00)
[2020-03-15] MEDS ORDERED: MEGARED PO SCH (09:00)
[2020-03-15] MEDS ORDERED: GABAPENTIN 300 MG CAP PO SCH ×3 (09:00→13:45)
[2020-03-15] MEDS ORDERED: CALCIUM CARBONATE 500 MG PO SCH (09:00)
[2020-03-15] MEDS ORDERED: FLUOXETINE HCL 20 MG CAP PO SCH (09:00)
[2020-03-15] MEDS ORDERED: NON-FORMULARY MEDICATION (Ascorbic Acid (Vitamin C) 1,000 MG) PO SCH (09:00)
[2020-03-15] MEDS ORDERED: FOLIC ACID 800 MCG PO SCH (09:00)
[2020-03-15] MEDS: MEGARED PO SCH (09:00)
[2020-03-15] MEDS ORDERED: NON-FORMULARY MEDICATION (Bumetanide 2 MG) PO SCH (09:00)
[2020-03-15] MEDS ORDERED: NIACIN 500 MG TABSR PO SCH (09:00)
[2020-03-15] MEDS ORDERED: BUMETANIDE 1 MG TAB PO SCH (09:00)
[2020-03-15] MEDS: CLONIDINE HCL 0.2 MG TAB PO SCH ×2 (09:00→17:13)
[2020-03-15] MEDS ORDERED: DOCUSATE SODIUM 100 MG CAP PO SCH (09:00)
[2020-03-15] MEDS ORDERED: APIXAB 2.5 MG TABLET PO SCH (09:00)
[2020-03-15] MEDS ORDERED: IRON 28 MG PO SCH (09:00)
[2020-03-15] MEDS ORDERED: ASPIRIN 81 MG CHEW TAB PO SCH (09:00)
[2020-03-15] MEDS ORDERED: FERROUS SULFATE 325 MG TAB PO SCH (09:00)
[2020-03-15] MEDS ORDERED: AMLODIPINE BESYLATE 5 MG TAB PO SCH (09:00)
[2020-03-15] MEDS: IRON 28 MG PO SCH (09:00)
[2020-03-15] MEDS: TUMERIC 500 MG PO SCH (09:00)
[2020-03-15] MEDS: ASPIRIN 81 MG CHEW TAB PO SCH (09:56)
[2020-03-15] MEDS: FERROUS SULFATE 325 MG TAB PO SCH (09:58)
[2020-03-15] MEDS: DOCUSATE SODIUM 100 MG CAP PO SCH (09:58)
[2020-03-15] MEDS: APIXAB 2.5 MG TABLET PO SCH ×2 (09:58→17:13)
[2020-03-15] MEDS: NIACIN 500 MG TABSR PO SCH (09:59)
[2020-03-15] MEDS: CALCIUM CARBONATE 500 MG CHEWABLE TABS PO SCH (10:00)
[2020-03-15] MEDS: ASCORBIC ACID 500 MG TAB PO SCH (10:00)
[2020-03-15] MEDS: FLUOXETINE HCL 20 MG CAP PO SCH (10:00)
[2020-03-15] MEDS: CHOLECALCIFEROL 1,000 UNIT TAB PO SCH (10:01)
[2020-03-15] MEDS: CEFEPIME 1GM/NS 0.9% 50 ML 50 ML IV SCH ×2 (10:09→20:37)
[2020-03-15] MEDS ORDERED: DEXTROSE 50% SYRINGE 50 ML IV PRN ×2 (10:15)
[2020-03-15] MEDS ORDERED: INSULIN REGULAR, HUMAN 100 UNIT/1 ML 3ML VIAL SQ SCH (11:30)
[2020-03-15] MEDS: INSULIN REGULAR, HUMAN 100 UNIT/1 ML 3ML VIAL SQ SCH ×3 (11:30→20:46)
[2020-03-15] MEDS ORDERED: LINACLOTIDE 145 MCG CAPSULE PO PRN (13:45)
[2020-03-15] MEDS: DEXTROSE 5%/0.45% SOD CHL 1,000 ML IV SCH ×2 (14:28→23:30)
[2020-03-15] MEDS ORDERED: PHENYLEPHRINE HCL 1% 10 MG/ML VIAL ONE (17:17)
[2020-03-15] MEDS: VANCOMYCIN 1GM/NS 250 ML 250 ML IV SCH (19:45)
[2020-03-15] MEDS: GABAPENTIN 300 MG CAP PO SCH (20:33)
[2020-03-15] MEDS: HYDROMORPHONE 1MG/1ML INJ IV PRN (21:45)
[2020-03-15] MEDS: HYDROCODONE/APAP 10MG-325MG TAB PO PRN (23:37)
[2020-03-16] VITALS (8 sets, daily range): BP systolic 101–119; BP diastolic 41–55
[2020-03-16 06:54] LABS: ALBUMIN 2.6 g/dL (3.5-5.0); ALBUMIN/GLOBULIN RATIO 0.7 (0.8-2.0); ANION GAP 13.3 mmol/L (8-16); CALCIUM 8.1 mg/dL (8.4-10.2); CREATININE, SERUM 2.1 mg/dL (0.57-1.11); POTASSIUM 5.3 mmol/L (3.5-5.1)
[2020-03-16] MEDS: INSULIN REGULAR, HUMAN 100 UNIT/1 ML 3ML VIAL SQ SCH ×4 (07:30→20:40)
[2020-03-16] MEDS: HYDROMORPHONE 1MG/1ML INJ IV PRN ×4 (08:32→23:20)
[2020-03-16] MEDS: CEFEPIME 1GM/NS 0.9% 50 ML 50 ML IV SCH (08:33)
[2020-03-16] MEDS: ASPIRIN 81 MG CHEW TAB PO SCH (08:35)
[2020-03-16] MEDS: CLONIDINE HCL 0.2 MG TAB PO SCH ×2 (08:36→17:00)
[2020-03-16] MEDS: DOCUSATE SODIUM 100 MG CAP PO SCH (08:36)
[2020-03-16] MEDS: APIXAB 2.5 MG TABLET PO SCH ×2 (08:37→18:06)
[2020-03-16] MEDS: FERROUS SULFATE 325 MG TAB PO SCH (08:37)
[2020-03-16] MEDS: FOLIC ACID 1 MG TAB PO SCH (08:37)
[2020-03-16] MEDS: IRON 28 MG PO SCH (08:37)
[2020-03-16] MEDS: TUMERIC 500 MG PO SCH (08:38)
[2020-03-16] MEDS: GABAPENTIN 300 MG CAP PO SCH ×2 (08:38→20:40)
[2020-03-16] MEDS: MEGARED PO SCH (08:38)
[2020-03-16] MEDS: FLUOXETINE HCL 20 MG CAP PO SCH (08:39)
[2020-03-16] MEDS: AMLODIPINE BESYLATE 5 MG TAB PO SCH (08:39)
[2020-03-16] MEDS: NIACIN 500 MG TABSR PO SCH (08:39)
[2020-03-16] MEDS: CALCIUM CARBONATE 500 MG CHEWABLE TABS PO SCH (08:39)
[2020-03-16] MEDS: ASCORBIC ACID 500 MG TAB PO SCH (08:40)
[2020-03-16] MEDS: CHOLECALCIFEROL 1,000 UNIT TAB PO SCH (08:40)
[2020-03-16] MEDS: DEXTROSE 5%/0.45% SOD CHL 1,000 ML IV SCH ×2 (09:30→23:11)
[2020-03-16] MEDS: HYDROCODONE/APAP 10MG-325MG TAB PO PRN (11:14)
[2020-03-16] MEDS ORDERED: LACTULOSE SYRUP 20 GM/30 ML UDC PO ONE (14:15)
[2020-03-16] MEDS ORDERED: SOD POLYSTYRENE SULFONATE SUSP 15 GM/60 ML BTL PO ONE (14:15)
[2020-03-16] MEDS: VANCOMYCIN 1GM/NS 250 ML 250 ML IV SCH (20:40)
[2020-03-17] VITALS (7 sets, daily range): BP systolic 118–125; BP diastolic 43–60
[2020-03-17 06:42] LABS: BASOPHILS % 0.8 % (0.0-1.0); EOSINOPHILS # (AUTO) 0.3 (0.0-0.4); EOSINOPHILS % 5.4 % (0.0-6.0); HEMATOCRIT 24.2 % (34.2-44.1); HEMOGLOBIN 7.6 g/dL (12.0-16.0); LYMPHOCYTES # (AUTO) 1.5 (1.0-3.2); LYMPHOCYTES % 29.5 % (18.0-39.1); MEAN CORPUSCULAR HEMOGLOBIN 31.3 pg (28-32); MEAN CORPUSCULAR HGB CONC 31.4 g/dL (31-35); MEAN CORPUSCULAR VOLUME 99.6 fL (81-99); MONOCYTES # (AUTO) 0.5 (0.2-0.8); MONOCYTES % 9.2 % (4.4-11.3); NEUTROPHILS # (AUTO) 2.7 (2.1-6.9); NEUTROPHILS % 54.7 % (38.7-80.0); PLATELET COUNT 120 x10e3/uL (140-360); RED BLOOD COUNT 2.43 x10e6/uL (3.6-5.1); RED CELL DISTRIBUTION WIDTH 14.8 % (11.7-14.4)
[2020-03-17 07:13] LABS: ALBUMIN 2.6 g/dL (3.5-5.0); ALBUMIN/GLOBULIN RATIO 0.7 (0.8-2.0); ANION GAP 10.6 mmol/L (8-16); CALCIUM 8.3 mg/dL (8.4-10.2); CREATININE, SERUM 1.89 mg/dL (0.57-1.11); POTASSIUM 4.6 mmol/L (3.5-5.1)
[2020-03-17] MEDS: INSULIN REGULAR, HUMAN 100 UNIT/1 ML 3ML VIAL SQ SCH ×4 (07:30→20:30)
[2020-03-17] MEDS: IRON 28 MG PO SCH (08:18)
[2020-03-17] MEDS: MEGARED PO SCH (08:19)
[2020-03-17] MEDS: TUMERIC 500 MG PO SCH (08:19)
[2020-03-17] MEDS: CLONIDINE HCL 0.2 MG TAB PO SCH ×2 (08:54→16:19)
[2020-03-17] MEDS: AMLODIPINE BESYLATE 5 MG TAB PO SCH (08:54)
[2020-03-17] MEDS: DOCUSATE SODIUM 100 MG CAP PO SCH (09:03)
[2020-03-17] MEDS: CHOLECALCIFEROL 1,000 UNIT TAB PO SCH (09:03)
[2020-03-17] MEDS: FOLIC ACID 1 MG TAB PO SCH (09:03)
[2020-03-17] MEDS: ASPIRIN 81 MG CHEW TAB PO SCH (09:03)
[2020-03-17] MEDS: FLUOXETINE HCL 20 MG CAP PO SCH (09:03)
[2020-03-17] MEDS: GABAPENTIN 300 MG CAP PO SCH ×2 (09:03→20:29)
[2020-03-17] MEDS: FERROUS SULFATE 325 MG TAB PO SCH (09:03)
[2020-03-17] MEDS: CALCIUM CARBONATE 500 MG CHEWABLE TABS PO SCH (09:03)
[2020-03-17] MEDS: NIACIN 500 MG TABSR PO SCH (09:03)
[2020-03-17] MEDS: ASCORBIC ACID 500 MG TAB PO SCH (09:03)
[2020-03-17] MEDS: APIXAB 2.5 MG TABLET PO SCH (09:03)
[2020-03-17] MEDS: HYDROCODONE/APAP 10MG-325MG TAB PO PRN (09:08)
[2020-03-17] MEDS: DEXTROSE 5%/0.45% SOD CHL 1,000 ML IV SCH ×3 (09:08→22:41)
[2020-03-17] MEDS: HYDROMORPHONE 1MG/1ML INJ IV PRN ×3 (10:42→21:05)
[2020-03-17] MEDS: PANTOPRAZOLE SOD 40 MG TABEC PO SCH (12:31)
[2020-03-17] MEDS: VANCOMYCIN 1GM/NS 250 ML 250 ML IV SCH (20:29)
[2020-03-18] VITALS: BP 139/42
[2020-03-18] MEDS: HYDROMORPHONE 1MG/1ML INJ IV PRN ×4 (01:20→22:05)
[2020-03-18 04:00] VITALS: BP 138/46
[2020-03-18 06:31] LABS: BASOPHILS % 0.9 % (0.0-1.0); EOSINOPHILS # (AUTO) 0.2 (0.0-0.4); EOSINOPHILS % 5.2 % (0.0-6.0); HEMATOCRIT 25.5 % (34.2-44.1); HEMOGLOBIN 7.7 g/dL (12.0-16.0); LYMPHOCYTES # (AUTO) 1.5 (1.0-3.2); LYMPHOCYTES % 31.5 % (18.0-39.1); MEAN CORPUSCULAR HEMOGLOBIN 29.3 pg (28-32); MEAN CORPUSCULAR HGB CONC 30.2 g/dL (31-35); MONOCYTES # (AUTO) 0.5 (0.2-0.8); MONOCYTES % 10.8 % (4.4-11.3); NEUTROPHILS # (AUTO) 2.4 (2.1-6.9); NEUTROPHILS % 51.4 % (38.7-80.0); PLATELET COUNT 146 x10e3/uL (140-360); RED BLOOD COUNT 2.63 x10e6/uL (3.6-5.1); RED CELL DISTRIBUTION WIDTH 14.6 % (11.7-14.4)
[2020-03-18 07:00] LABS: ALBUMIN 2.7 g/dL (3.5-5.0); ALBUMIN/GLOBULIN RATIO 0.8 (0.8-2.0); ANION GAP 9.7 mmol/L (8-16); CALCIUM 8.5 mg/dL (8.4-10.2); CREATININE, SERUM 1.71 mg/dL (0.57-1.11); POTASSIUM 4.7 mmol/L (3.5-5.1)
[2020-03-18] MEDS: INSULIN REGULAR, HUMAN 100 UNIT/1 ML 3ML VIAL SQ SCH ×4 (07:30→21:39)
[2020-03-18] MEDS: PANTOPRAZOLE SOD 40 MG TABEC PO SCH (07:30)
[2020-03-18] MEDS: DOCUSATE SODIUM 100 MG CAP PO SCH ×2 (07:44→17:21)
[2020-03-18] MEDS: FERROUS SULFATE 325 MG TAB PO SCH (07:44)
[2020-03-18] MEDS: FOLIC ACID 1 MG TAB PO SCH (07:44)
[2020-03-18] MEDS: GABAPENTIN 300 MG CAP PO SCH ×2 (07:44→20:34)
[2020-03-18] MEDS: MEGARED PO SCH (07:44)
[2020-03-18] MEDS: NIACIN 500 MG TABSR PO SCH (07:44)
[2020-03-18] MEDS: IRON 28 MG PO SCH (07:44)
[2020-03-18] MEDS: TUMERIC 500 MG PO SCH (07:44)
[2020-03-18] MEDS: CHOLECALCIFEROL 1,000 UNIT TAB PO SCH (07:45)
[2020-03-18] MEDS: ASCORBIC ACID 500 MG TAB PO SCH (07:45)
[2020-03-18] MEDS: AMLODIPINE BESYLATE 5 MG TAB PO SCH (07:45)
[2020-03-18] MEDS: CALCIUM CARBONATE 500 MG CHEWABLE TABS PO SCH (07:45)
[2020-03-18 08:00] VITALS: BP 140/59
[2020-03-18] MEDS: CLONIDINE HCL 0.2 MG TAB PO SCH ×2 (09:00→17:21)
[2020-03-18] MEDS ORDERED: FENTANYL CITRATE/PF 100MCG/2 ML INJ ONE ×2 (10:46→13:10)
[2020-03-18 12:00] VITALS: BP 148/52
[2020-03-18] MEDS ORDERED: MAGNESIUM HYDROXIDE 30 ML UDC PO PRN (12:00)
[2020-03-18] MEDS: FLUOXETINE HCL 20 MG CAP PO SCH (12:27)
[2020-03-18] MEDS: DEXTROSE 5%/0.45% SOD CHL 1,000 ML IV SCH (12:27)
[2020-03-18] MEDS ORDERED: PROPOFOL IV EMULSION 10 MG/ML 20 ML VIAL ONE (12:52)
[2020-03-18] MEDS ORDERED: SEVOFLURANE INHAL SOLN 250 ML PEN BTL ONE (12:52)
[2020-03-18] MEDS ORDERED: LIDOCAINE HCL 2% LOCAL INJ 5 ML SDV VIAL INJ ONE (12:52)
[2020-03-18] MEDS ORDERED: ONDANSETRON HCL INJ 2MG/ML 2ML 2 MG/ML VIAL ONE (12:52)
[2020-03-18 13:10] LABS: % IRON SATURATION 10 % (15-50); IRON 21 ug/dL (50-170); TOTAL IRON BINDING CAPACITY 218 ug/dL (261-478); TRANSFERRIN 156 mg/dL (180-382)
[2020-03-18 16:00] VITALS: BP 124/67
[2020-03-18] MEDS: VANCOMYCIN 1GM/NS 250 ML 250 ML IV SCH (20:34)
[2020-03-18] MEDS: HYDROCODONE/APAP 10MG-325MG TAB PO PRN (20:40)
[2020-03-18 21:00] VITALS: BP 124/61
[2020-03-19] VITALS (9 sets, daily range): BP systolic 119–133; BP diastolic 36–52
[2020-03-19] MEDS: DEXTROSE 5%/0.45% SOD CHL 1,000 ML IV SCH ×3 (00:27→17:30)
[2020-03-19] MEDS: HYDROMORPHONE 1MG/1ML INJ IV PRN ×6 (03:08→23:17)
[2020-03-19 06:46] LABS: ALBUMIN 2.7 g/dL (3.5-5.0); ALBUMIN/GLOBULIN RATIO 0.7 (0.8-2.0); ALKALINE PHOSPHATASE 83 IU/L (40-150); ANION GAP 10.9 mmol/L (8-16); BLOOD UREA NITROGEN 22 mg/dL (7-26); BUN/CREATININE RATIO 13 (6-25); CALCIUM 8.6 mg/dL (8.4-10.2); CARBON DIOXIDE 26 mmol/L (22-29); CHLORIDE 105 mmol/L (98-107); CREATININE, SERUM 1.75 mg/dL (0.57-1.11); EST GLOMERULAR FILTRATION RATE 28 ML/MIN (60-); GLUCOSE 109 mg/dL (74-118); POTASSIUM 4.9 mmol/L (3.5-5.1); SODIUM 137 mmol/L (136-145)
[2020-03-19 06:48] LABS: ALANINE AMINOTRANSFERASE < 6 IU/L (0-55)
[2020-03-19] MEDS: INSULIN REGULAR, HUMAN 100 UNIT/1 ML 3ML VIAL SQ SCH ×4 (07:30→21:00)
[2020-03-19] MEDS: DOCUSATE SODIUM 100 MG CAP PO SCH ×2 (08:36→17:33)
[2020-03-19] MEDS: PANTOPRAZOLE SOD 40 MG TABEC PO SCH (08:36)
[2020-03-19] MEDS: MEGARED PO SCH (08:37)
[2020-03-19] MEDS: IRON 28 MG PO SCH (08:37)
[2020-03-19] MEDS: FOLIC ACID 1 MG TAB PO SCH (08:37)
[2020-03-19] MEDS: FERROUS SULFATE 325 MG TAB PO SCH (08:37)
[2020-03-19] MEDS: TUMERIC 500 MG PO SCH (08:37)
[2020-03-19] MEDS: GABAPENTIN 300 MG CAP PO SCH ×2 (08:37→21:00)
[2020-03-19] MEDS: NIACIN 500 MG TABSR PO SCH (08:37)
[2020-03-19] MEDS: CALCIUM CARBONATE 500 MG CHEWABLE TABS PO SCH (08:38)
[2020-03-19] MEDS: ASCORBIC ACID 500 MG TAB PO SCH (08:38)
[2020-03-19] MEDS: FLUOXETINE HCL 20 MG CAP PO SCH (08:38)
[2020-03-19] MEDS: CHOLECALCIFEROL 1,000 UNIT TAB PO SCH (08:38)
[2020-03-19] MEDS: AMLODIPINE BESYLATE 5 MG TAB PO SCH (08:38)
[2020-03-19] MEDS: CLONIDINE HCL 0.2 MG TAB PO SCH ×2 (08:39→17:33)
[2020-03-19] MEDS: HYDROCODONE/APAP 10MG-325MG TAB PO PRN (08:44)
[2020-03-19] MEDS: VANCOMYCIN 1GM/NS 250 ML 250 ML IV SCH (19:45)
[2020-03-20] VITALS (7 sets, daily range): BP systolic 105–154; BP diastolic 49–75
[2020-03-20] MEDS: DEXTROSE 5%/0.45% SOD CHL 1,000 ML IV SCH ×3 (03:30→23:30)
[2020-03-20] MEDS: HYDROMORPHONE 1MG/1ML INJ IV PRN ×3 (07:15→21:00)
[2020-03-20] MEDS: PANTOPRAZOLE SOD 40 MG TABEC PO SCH (07:30)
[2020-03-20] MEDS: INSULIN REGULAR, HUMAN 100 UNIT/1 ML 3ML VIAL SQ SCH ×4 (07:30→21:00)
[2020-03-20] MEDS: IRON 28 MG PO SCH (09:00)
[2020-03-20] MEDS: TUMERIC 500 MG PO SCH (09:00)
[2020-03-20] MEDS: MEGARED PO SCH (09:00)
[2020-03-20] MEDS: FLUOXETINE HCL 20 MG CAP PO SCH (09:50)
[2020-03-20] MEDS: NIACIN 500 MG TABSR PO SCH (09:50)
[2020-03-20] MEDS: FERROUS SULFATE 325 MG TAB PO SCH (09:50)
[2020-03-20] MEDS: CHOLECALCIFEROL 1,000 UNIT TAB PO SCH (09:50)
[2020-03-20] MEDS: CALCIUM CARBONATE 500 MG CHEWABLE TABS PO SCH (09:50)
[2020-03-20] MEDS: GABAPENTIN 300 MG CAP PO SCH ×2 (09:50→21:00)
[2020-03-20] MEDS: CLONIDINE HCL 0.2 MG TAB PO SCH ×2 (09:50→17:01)
[2020-03-20] MEDS: AMLODIPINE BESYLATE 5 MG TAB PO SCH (09:50)
[2020-03-20] MEDS: FOLIC ACID 1 MG TAB PO SCH (09:50)
[2020-03-20] MEDS: ASCORBIC ACID 500 MG TAB PO SCH (09:50)
[2020-03-20] MEDS: DOCUSATE SODIUM 100 MG CAP PO SCH ×2 (09:50→17:00)
[2020-03-20] MEDS: HYDROCODONE/APAP 10MG-325MG TAB PO PRN (10:27)
[2020-03-20] MEDS ORDERED: HYDROMORPHONE 1MG/1ML INJ IV ONE (12:30)
[2020-03-20] MEDS ORDERED: EPOETIN ALFA-EPBX 10,000 UNIT/ML VIAL SC ONE (12:45)
[2020-03-20] MEDS ORDERED: IRON SUCROSE 100 MG in SODIUM CHLORIDE 0.9% 100 ML 100 ML IV SCH (14:00)
[2020-03-21] VITALS: BP 121/56
[2020-03-21] MEDS: HYDROMORPHONE 1MG/1ML INJ IV PRN ×2 (01:00→10:25)
[2020-03-21] MEDS: HYDROCODONE/APAP 10MG-325MG TAB PO PRN (01:30)
[2020-03-21 04:00] VITALS: BP 115/60
[2020-03-21 05:21] LABS: BASOPHILS % 0.7 % (0.0-1.0); EOSINOPHILS # (AUTO) 0.2 (0.0-0.4); EOSINOPHILS % 4.7 % (0.0-6.0); HEMATOCRIT 25.2 % (34.2-44.1); HEMOGLOBIN 7.7 g/dL (12.0-16.0); LYMPHOCYTES # (AUTO) 1.3 (1.0-3.2); LYMPHOCYTES % 30.2 % (18.0-39.1); MEAN CORPUSCULAR HEMOGLOBIN 30.3 pg (28-32); MEAN CORPUSCULAR HGB CONC 30.6 g/dL (31-35); MEAN CORPUSCULAR VOLUME 99.2 fL (81-99); MONOCYTES # (AUTO) 0.4 (0.2-0.8); MONOCYTES % 9.2 % (4.4-11.3); NEUTROPHILS # (AUTO) 2.4 (2.1-6.9); PLATELET COUNT 138 x10e3/uL (140-360); RED BLOOD COUNT 2.54 x10e6/uL (3.6-5.1); RED CELL DISTRIBUTION WIDTH 14.6 % (11.7-14.4)
[2020-03-21 05:38] LABS: CALCIUM 8.5 mg/dL (8.4-10.2); CREATININE, SERUM 1.7 mg/dL (0.57-1.11)
[2020-03-21] MEDS: INSULIN REGULAR, HUMAN 100 UNIT/1 ML 3ML VIAL SQ SCH ×2 (07:30→11:30)
[2020-03-21 08:49] VITALS: BP 146/69
[2020-03-21] MEDS: IRON 28 MG PO SCH (09:00)
[2020-03-21] MEDS: MEGARED PO SCH (09:00)
[2020-03-21] MEDS: TUMERIC 500 MG PO SCH (09:00)
[2020-03-21 09:24] VITALS: BP 146/69
[2020-03-21] MEDS: DOCUSATE SODIUM 100 MG CAP PO SCH (09:56)
[2020-03-21] MEDS: CLONIDINE HCL 0.2 MG TAB PO SCH (09:56)
[2020-03-21] MEDS: AMLODIPINE BESYLATE 5 MG TAB PO SCH (09:57)
[2020-03-21] MEDS: CALCIUM CARBONATE 500 MG CHEWABLE TABS PO SCH (09:58)
[2020-03-21] MEDS: ASCORBIC ACID 500 MG TAB PO SCH (09:58)
[2020-03-21] MEDS: GABAPENTIN 300 MG CAP PO SCH (10:21)
[2020-03-21] MEDS: NIACIN 500 MG TABSR PO SCH (10:21)
[2020-03-21] MEDS: CHOLECALCIFEROL 1,000 UNIT TAB PO SCH (10:21)
[2020-03-21] MEDS: FLUOXETINE HCL 20 MG CAP PO SCH (10:21)
[2020-03-21] MEDS: FOLIC ACID 1 MG TAB PO SCH (10:22)
[2020-03-21] MEDS: PANTOPRAZOLE SOD 40 MG TABEC PO SCH (10:22)
[2020-03-21] MEDS: FERROUS SULFATE 325 MG TAB PO SCH (10:22)
[2020-03-21 12:22] VITALS: BP 102/42
[2020-03-21] MEDS ORDERED: VANCOMYCIN 1GM/NS 250 ML 250 ML IV SCH (19:00)
== END 2020-03-21 14:55 | disposition home health service (06) | DRG 857 ==
LOC: MED/SURG3 18:08
PROC: 0PB00ZZ Excision of Sternum, Open Approach (ICD-10-PCS; principal; 2020-03-14)
PROC: 02HV33Z Insertion of Infusion Device into Superior Vena Cava, Percutaneous Approach (ICD-10-PCS; 2020-03-16)
DX: T81.49XA Infection following a procedure, other surgical site, initial encounter (principal); T81.30XA Disruption of wound, unspecified, initial encounter; N17.9 Acute kidney failure, unspecified; N18.4 Chronic kidney disease, stage 4 (severe); M86.8X8 Other osteomyelitis, other site; I25.10 Atherosclerotic heart disease of native coronary artery without angina pectoris; Z95.1 Presence of aortocoronary bypass graft; E11.22 Type 2 diabetes mellitus with diabetic chronic kidney disease; I12.9 Hypertensive chronic kidney disease with stage 1 through stage 4 chronic kidney disease, or unspecified chronic kidney disease; M19.90 Unspecified osteoarthritis, unspecified site; B95.62 Methicillin resistant Staphylococcus aureus infection as the cause of diseases classified elsewhere; D63.1 Anemia in chronic kidney disease; I48.0 Paroxysmal atrial fibrillation; Z79.01 Long term (current) use of anticoagulants; Z11.59 Encounter for screening for other viral diseases
CPT/HCPCS: 36415; 71045; 71250; 80048; 80053; 80202; 82270; 82728; 82948; 83540; 84466; 85025; 85651; 86140; 86850; 86900; 87040; 87071; 87075; 87186; 87205; 93005; 96372; J0692; J1170; J1756; J1885; J2001; J2370; J2405; J3010; J3370; J7050; U0002

== ENCOUNTER 2020-04-02 14:34 | Emergency (ER) | payer MEDICARE ==
[~2020-04-02] VITALS: Ht 177.8 cm; Wt 85.3 kg
[~2020-04-02 14:34] MED LIST changes: +D3 PO; +DULCOLAX STOOL100 MG PO; +ELIQUIS2.5 MG PO; +IRON PO; +NIACIN500 M2 PO; +TUMERIC PO; +VITAMIN C1000 MG PO
--- NOTE | 2020-04-02 14:54 | Emergency Department Note ---
History of Present Illnes History of Present Illness Chief Complaint: General Medicine Complaints History of Present Illness This is a 75 year old female . Historian: Patient Arrival Mode: Car Past Medical/Family History Physician Review I have reviewed the patient's past medical and family history. Any updates have been documented here. Past Medical History Recent Fever: No Clinical Suspicion of Infectio: No New/Unexplained Change in Ment: No Past Medical History: Hypertension, Diabetes, CHF, ESRD, Depression, Hyperlipedemia, Chronic Kidney Disease Other Medical History: constipation Past Surgical History: Appendectomy, Hip Replacement, Knee Replacement Other Surgery: Rupture appy, knee x2 Other Last Tetanus: NA Physical Exam Related Data Allergies: Coded Allergies: levofloxacin (Verified Allergy, Unknown, REACTION RESEMBLES A STROKE, 04/02/20) Triage Vital Signs Vital Signs Date Time Temp Pulse Resp B/P (MAP) Pulse Ox O2 Delivery O2 Flow Rate FiO2 04/02/20 14:47 97.1 55 20 119/50 96 Room Air Physical Exam CONSTITUTIONAL HENT EYES NECK PULMONARY CARDIOVASCULAR GASTROINTESTINAL GENITOURINARY SKIN MUSCULOSKELETAL NEUROLOGICAL PSYCHOLOGICAL Assessment & Plan Assessment & Plan Final Impression: (1) Needs peripherally inserted central catheter (PICC) Last Vital Signs Date Time Temp Pulse Resp B/P (MAP) Pulse Ox O2 Delivery O2 Flow Rate FiO2 04/02/20 14:47 97.1 55 20 119/50 96 Room Air Home Meds Reported Medications [D3] No Conflict Check, 50 MG PO DAILY 03/14/20 [Iron ] No Conflict Check, 28 MG PO DAILY 03/14/20 Docusate Sodium (DULCOLAX STOOL SOFTENER) 100 Mg Capsule, 100 MG PO DAILY 03/14/20 Ascorbic Acid (VITAMIN C) 1,000 Mg Tablet, 1000 MG PO DAILY 03/14/20 Niacin (NIACIN) 500 Mg Tabsr, 500 MG PO DAILY, #30 TAB 03/14/20 [Tumeric] No Conflict Check, 500 MG PO DAILY 03/14/20 Apixaban (Eliquis) 2.5 Mg Tablet, 2.5 MG PO BID 03/14/20 Insulin Detemir (LEVEMIR) 100 Unit/1 Ml Vial, 40 UNITS SQ ACS PRN for BLOOD SUGAR give if BS is 200 or greater 03/08/18 Insulin Lispro (HUMALOG) 100 Unit/1 Ml Insuln.pen, 12 UNITS SQ PRN 03/08/18 [Hydrocodone] 10/,325 TAB No Conflict Check, 10 MG PO Q12H PRN for BREAKTHROUGH PAIN 03/08/18 Diclofenac Sodium (VOLTAREN) 100 Gm Gel..gram., TOP PRN THERAPEUTICALLY SUBSTITUTED WITH IBUPROFEN 600MG 03/08/18 [Lidocaine Patch] 3 No Conflict Check, TD PRN 03/08/18 Calcium Carbonate (CALCIUM) 600 Mg Tablet, 500 MG PO DAILY 03/08/18 Calcium/Magnesium/Zinc ([id number]-IJIN TAB) 1 Each Tablet, PO DAILY 03/08/18 [Folic Acid] 800 MG No Conflict Check, 800 MCG PO DAILY 03/08/18 Gabapentin (GABAPENTIN) 300 Mg Capsule, 300 MG PO TID, #60 CAP 03/08/18 [Megared] 500 MG No Conflict Check, 500 MG PO DAILY 03/08/18 Aspirin (ASPIR 81) 81 Mg Tablet.dr, 81 MG PO DAILY 03/08/18 Bumetanide (BUMETANIDE) 2 Mg Tablet, 2 MG PO BID 03/08/18 Ferrous Sulfate (FERROUS SULFATE) 325 Mg Tablet.dr, 325 MG PO DAILY 03/08/18 Fluoxetine Hcl (FLUOXETINE HCL) 20 Mg Capsule, 20 MG PO DAILY, #30 CAP 03/08/18 Clonidine Hcl (CLONIDINE HCL) 0.2 Mg Tablet, 0.2 MG PO BID 03/08/18 [Linzess] No Conflict Check, 145 MCG PO PRN EVERY OTHER DAY 03/08/18 Amlodipine Besylate (AMLODIPINE BESYLATE) 5 Mg Tablet, 5 MG PO DAILY, #30 TAB 07/18/15 Atorvastatin Calcium (ATORVASTATIN CALCIUM) Unknown Strength Tablet, 20 MG PO HS, TAB 06/20/15 HENOK CHIU DO Apr 02, 2020 14:54
--- OUTSIDE RECORDS SUMMARY | 2020-04-02 15:01 | XMS REPORT | Clinical Summary ---
Author Author [facility] Organization [facility] Address Unknown Phone Unavailable Care Team Providers Care Self Pay Collector Name Role Phone Amilcar Pedersen MD PCP [...] mouth daily. Active Problems Not on file Surgical History Surgery Date Site/Laterality Comments KNEE SURGERY LAP-BAND, OPEN TONSILLECTOMY AV FISTULA PLACEMENT BYPASS GRAFT W/VEIN CAROTID Medical History Medical History Date Comments Diabetes mellitus (HCC) Hypertension Heart attack (HCC) Stroke (HCC) High cholesterol Family History Medical History Relation Name Comments Heart attack Father Heart attack Mother Relation Name Status Comments Father Mother Social History Date Tobacco Use Types Packs/Day Years Used Never Smoker Drinks/Week oz/Week Comments Alcohol Use No Sex Assigned at Date Recorded Not on file Last Filed Vital Signs Not on file Plan of Treatment Health Maintenance Due Date Last Done Comments BREAST CANCER SCREENING 1995 COLONOSCOPY SCREENING 1995 SHINGLES VACCINES (#1) 1995 65+ PNEUMOCOCCAL VACCINE 2010 (1 of 1 - PPSV23) INFLUENZA VACCINE 01/13/2020 Results Not on fileafter 04/02/2019 Insurance Type Payer Benefit Subscriber ID Effective Phone Address Plan / Dates Group HMO/PP[facility] [id number] 2016-P THCARE resent CHOICE/CHO ICE + Advance Directives For more information, please contact: [phone] Patient Shade Bander Explanation Type Date Recorded Advance Directives, Living Will and Medical Power of Display Designer
--- OUTSIDE RECORDS SUMMARY | 2020-04-02 15:02 | XMS REPORT | Clinical Summary ---
Author Author [facility] Address Unknown Phone Unavailable Care Team Providers Care Technical Services Analyst Name Role Phone Kevon Gandhi Unavailable Allergies Comments Active Allergy Reactions Severity Noted Date Other reaction(s): REACTION RESEMBLES A STROKE Levofloxacin 01/27/2015 Medications End Date Status Medication Sig Dispensed Refills Start Date Active diclofenac 1 % Apply 0 GelIndications: topically 4 osteoarthritis of the (four) times knee daily as needed. Active atorvastatin (LIPITOR) 20 Take 20 mg by 0 MG tabletIndications: mouth daily. hypercholesterolemia, mixed hyperlipidemia Active amLODIPine (NORVASC) 5 MG Take 5 mg by 0 tabletIndications: mouth daily. hypertension Active FLUoxetine (PROZAC) 20 Take 20 mg by 0 mg/5 mL (4 mg/mL) mouth daily. solution Active gabapentin (NEURONTIN) Take 300 mg 0 300 MG capsule by mouth 3 (three) times daily. Active HYDROcodone-acetaminophen Take 1 tablet 0 (NORCO 10-325) 10-325 mg by mouth per tablet every 8 (eight) hours as needed for Pain. Active insulin lispro (HUMALOG) Inject 0 100 unit/mL injection subcutaneousl y 3 (three) times daily as needed for High Blood Sugar. Active bisacodyL (DULCOLAX) 5 mg Take 5 mg by 0 EC tablet mouth daily as needed for Constipation. Active zinc gluconate 50 mg Take 50 mg by 0 tablet mouth daily. Active niacin 500 MG tablet Take 500 mg 0 by mouth daily with breakfast. Active aspirin 81 MG EC tablet Take 81 mg by 0 mouth daily. Active calcium carbonate-vitamin Take 1 tablet 0 D3 (CALCIUM-VITAMIN D) by mouth 2 500 mg(1,250mg) -200 unit (two) times per tabletIndications: daily with post-menopausal breakfast and osteoporosis prevention, dinner. prevention of vitamin D deficiency Active magnesium oxide (MAG-OX) Take 400 mg 0 400 mg (241.3 mg by mouth magnesium) daily. tabletIndications: hypomagnesemia Active ascorbic acid, vitamin C, Take 1,000 mg 0 (VITAMIN C) 1000 MG by mouth tabletIndications: daily. vitamin C deficiency Active insulin detemir U-100 Inject 0 (LEVEMIR) 100 unit/mL (3 subcutaneousl mL) InPn y nightly. injectionIndications: type 2 diabetes mellitus Active apixaban (ELIQUIS) 2.5 mg Take 2 60 tablet 1 Tab tablet tablets (5 mg 0 total) by mouth 2 (two) times daily. Active bumetanide (BUMEX) 2 MG Take 1 tablet 30 tablet 1 tabletIndications: (2 mg total) 0 hypertension by mouth daily. 01/11/2021 Active metoprolol succinate Take 1 tablet 90 tablet 0 (TOPROL-XL) 25 MG 24 hr (25 mg total) 0 tablet by mouth daily. Active vancomycin (VANCOCIN) Inject 500 mg 0 01/12/20 2 500MG IV in NS 100 ML MBP intravenously 0 daily. 12/29/2019 Discontinued (Stop Taking at Discharge) metoprolol tartrate Take 25 mg by 0 (LOPRESSOR) 25 MG mouth 2 (two) tabletIndications: times daily. hypertension, myocardial reinfarction prevention 12/29/2019 Discontinued (Stop Taking at Discharge) cloNIDine HCL (CATAPRES) Take 0.2 mg 0 0.2 MG tabletIndications: by mouth 2 hypertension (two) times daily. 12/29/2019 Discontinued (Reorder) bumetanide (BUMEX) 2 MG Take 2 mg by 0 tabletIndications: mouth 2 (two) hypertension times daily. 12/30/2019 Discontinued (Stop Taking at Discharge) vancomycin (VANCOCIN) Inject 1,000 0 12/29/19 2 1000 mg IV in NS 100 ML mg 0 MBP intravenously daily. 12/30/2019 Discontinued (Stop Taking at Discharge) metoprolol succinate Take 0.5 30 tablet 1 12/29 (TOPROL-XL) 25 MG 24 hr tablets (12.5 0 tablet mg total) by mouth daily. 01/08/2020 HYDROmorphone (DILAUDID) Take 1 tablet 30 tablet 0 2 MG tablet (2 mg total) 0 by mouth every 6 (six) hours as needed for up to 10 days. Max Daily Amount: 8 mg 01/11/2020 Discontinued (Stop Taking at Discharge) vancomycin (VANCOCIN) MBP Inject 750 mg 0 12/12 750 mg in NS 100 mL intravenously 0 daily. Active Problems Problem Noted Date Coronary artery disease involving [place] coronary art shemar of [place] heart 12/17/2019 without angina pectoris Chest pain 12/16/2019 TED (acute kidney injury) 01/30/2015 Back pain 01/27/2015 NSTEMI (non-ST elevated myocardial infarction) 01/27 Hypertension Diabetes mellitus Ischemic cardiomyopathy Overview: EF 24% CKD (chronic kidney disease) Overview: Creatinine on admission =1.48 Encounters Care Team Description Date Type Specialty Dhruv Elliott MD Coronary artery disease involving [place] coronary artery of [place] heart without angina pectoris (Primary Dx); TED (acute kidney injury) (HCC); Ischemic cardiomyopathy; Chronic kidney disease, unspecified CKD stage; Chronic midline low back pain, unspecified whether sciatica present; Type 2 diabetes mellitus with stage 4 chronic kidney disease, with long-term current use of insulin (HCC); Other chest pain 03/13/2020 Office Visit Cardiology Dhruv Elliott MD Coronary artery disease involving [place] coronary artery of [place] heart without angina pectoris (Primary Dx); Type 2 diabetes mellitus with stage 4 chronic kidney disease, with long-term current use of insulin (HCC); Ischemic cardiomyopathy; NSTEMI (non-ST elevated myocardial infarction) ([facility]); MRSA bacteremia; Chronic midline low back pain, unspecified whether sciatica present; Left knee pain, unspecified chronicity; TED (acute kidney injury) (HCC) 02/07/2020 Video - Cardiology Telemedicine Rc Berger MD AICD GENERATOR & LEADS - INSERTION W/ GE NERAL ANESTHESIA (SING/DUAL/MULT) 01/10/2020 Surgery Dhruv Elliott MD REMOVAL,STERNAL WIRE 01/08/2020 Surgery Mindy Toro MD Heerensperger, Emily Read, MD 01/08/2020 Anesthesia Event Miguel Jones MD Tsusaki, Byron E., 01/05/2020 Anesthesia Event Rc Berger MD AICD GENERATOR - REMOVAL ONLY (SINGLE, D UAL, MULTIPLE) 01/05/2020 Surgery Tacos Avina MD 01/05/2020 Anesthesia Event Amilcar Freeman 12/21/2019 Outside Orders Lab Dae Dasilva MD Joudah, Fady Ahmad, MD MRSA bacteremia (Primary Dx); Coronary artery disease involving [place] coronary artery of [place] heart without angina pectoris; Ischemic cardiomyopathy; Other chest pain; Chronic midline low back pain, unspecified whether sciatica present; Left knee pain, unspecified chronicity; TED (acute kidney injury) ([facility]); Chronic kidney disease, unspecified CKD stage; Type 2 diabetes mellitus with stage 4 chronic kidney disease, with long-term current use of insulin ([facility]); NSTEMI (non-ST elevated myocardial infarction) ([facility]) 12/16/2019 Hospital Cardiology - Encounter 01/12/2020 12/16/2019 Orders Only General Internal Me dicine 12/16/2019 Travel after 04/02/2019 Family History Medical History Relation Name Comments Heart disease Brother Heart disease Father Heart disease Mother Heart disease Sister Relation Name Status Comments Brother Father Mother Sister Social History Date Tobacco Use Types Packs/Day Years Used Never Smoker Smokeless Tobacco: Never Used Drinks/Week oz/Week Comments Alcohol Use No Sex Assigned at Date Recorded Not on file Last Filed Vital Signs Reading Time Taken Comments Vital Sign 117/63 03/13/2020 12:37 PM CDT Blood Pressure 81 03/13/2020 12:37 PM CDT Pulse 36 C (96.8 F) 01/12/2020 7:22 AM CDT Temperature 18 01/12/2020 7:22 AM CDT Respiratory Rate 92% 01/12/2020 7:22 AM CDT Oxygen Saturation 21% 12/31/2019 7:50 PM CDT Inhaled Oxygen Concentration 81.5 kg (179 lb 11.2 oz) 03/13/2020 12:37 PM CDT Weight 177.8 cm (5' 10") 03/13/2020 12:37 PM CDT Height 25.78 03/13/2020 12:37 PM CDT Body Mass Index Plan of Treatment Care Team Description Date Type Specialty Dhruv Elliott MD [facility] [address] [place] [address] 04/17/2020 Office Visit Cardiology Health Maintenance Due Date Last Done Comments DIABETIC EYE EXAM 1955 DIABETIC FOOT EXAM 1955 URINE MICROALBUMIN 1955 MEDICARE ANNUAL WELLNESS 07/16/1994 (YEAR 2 or FIRST YEAR if no IPPE) PNEUMOCOCCAL 65+ YRS (1 2010 of 1 - [id number]) INFLUENZA VACCINE (#1) 2020 HEMOGLOBIN A1C 06/19/2020 12/18/2019, 01/28/2015, 01/27/2015 COLON CANCER SCREENING 12/20/2020 12/21/2019 ANNUAL FOBT Implants Device Identifier Shelf Expiration Date Model / Serial / L ot Implanted Type Area Manufactur er 1961 / / Hemostat,Surgicel Fibrillar 2x4 - Cement/Tyrone ALLISON SON [id number] ler/Adhesi Implanted: Qty: 1 on 02/12/2015 by Dhruv Saini MD at [facility] 09/10/2021 [id number] / [id number] / Sprint Quattrro Secure S Mri N/A: Heart MEDTRONI C Surescan Implanted: Qty: 1 on 01/10/2020 by Rc Berger MD at [facility] Description:RV Lead Coronary Sinus Lead 07/18/2021 [id number] / [id number] / Attain Performa Mri Surescan [employer]TRONIC Implanted: Qty: 1 on 01/10/2020 by Rc Berger MD at [facility] Description:Coronary Sinus Lead Antibiotic Envelope 11/05/2020 [id number] / / [id number] Absorbable Antibacterial MEDTRONIC Envelope Large Implanted: Qty: 1 on 01/10/2020 by Rc Berger MD at [facility] Description:Antibiotic Envelope Procedures Comments Procedure Name Priority Date/Time Associated Diag nosis ARRYTHMIA IMPLANT REPORT 03/05/2020 - SCAN 3:10 PM CDT ARRYTHMIA IMPLANT REPORT 03/01/2020 - SCAN 5:26 PM CDT RHYTHM STRIP - SCAN 01/16/2020 2:21 PM CDT ARRYTHMIA IMPLANT REPORT 01/16/2020 - SCAN 8:21 AM CDT CARDIAC CATH REPORT - 01/16/2020 SCAN 8:21 AM CDT CARDIAC CATH REPORT - 01/16/2020 SCAN 8:21 AM CDT RHYTHM STRIP - SCAN 01/16/2020 8:21 AM CDT RHYTHM STRIP - SCAN 01/16/2020 8:20 AM CDT ARRYTHMIA IMPLANT REPORT 01/16/2020 - SCAN 8:20 AM CDT CBC W/PLT COUNT & AUTO Routine 01/12/2020 DIFFERENTIAL 5:55 AM CDT PHOSPHORUS Routine 01/12/2020 5:55 AM CDT MAGNESIUM Routine 01/12/2020 5:55 AM CDT BASIC METABOLIC PANEL (7) Routine 01/12/2020 5:55 AM CDT CBC W/PLT COUNT & AUTO Routine 01/12/2020 DIFFERENTIAL 5:55 AM CDT POCT-GLUCOSE METER Routine 01/11/2020 9:26 PM CDT TRANSFUSION SERVICE 01/11/2020 REPORT - SCAN 6:01 PM CDT POCT-GLUCOSE METER Routine 01/11/2020 4:44 PM CDT POCT-GLUCOSE METER Routine 01/11/2020 12:08 PM CDT POCT-GLUCOSE METER Routine 01/11/2020 7:42 AM CDT XR CHEST 1 VIEW Routine 01/11/2020 PORTABLE/BEDSIDE 5:21 AM CDT CBC W/PLT COUNT & AUTO Routine 01/11/2020 DIFFERENTIAL 5:00 AM CDT PHOSPHORUS Routine 01/11/2020 5:00 AM CDT MAGNESIUM Routine 01/11/2020 5:00 AM CDT BASIC METABOLIC PANEL (7) Routine 01/11/2020 5:00 AM CDT CBC W/PLT COUNT & AUTO Routine 01/11/2020 DIFFERENTIAL 5:00 AM CDT PREPARE LEUKO-REDUCED RBC Routine 01/10/2020 11:54 PM CDT POCT-GLUCOSE METER Routine 01/10/2020 8:34 PM CDT TRANSFUSION SERVICE 01/10/2020 REPORT - SCAN 6:23 PM CDT POCT-GLUCOSE METER Routine 01/10/2020 5:11 PM CDT POCT-GLUCOSE METER Routine 01/10/2020 12:12 PM CDT AICD GENERATOR & LEADS - 01/10/2020 Aicd mechani alma INSERTION W/ GENERAL 7:22 AM CDT complication ANESTHESIA (SING/DUAL/MULT) Case Notes (2)CASE 1154 / biv-ICD MEDTRONIC CBC W/PLT COUNT & AUTO Routine 01/10/2020 DIFFERENTIAL 4:31 AM CDT PHOSPHORUS Routine 01/10/2020 4:31 AM CDT MAGNESIUM Routine 01/10/2020 4:31 AM CDT BASIC METABOLIC PANEL (7) Routine 01/10/2020 4:31 AM CDT CBC W/PLT COUNT & AUTO Routine 01/10/2020 DIFFERENTIAL 4:31 AM CDT TRANSFUSE LEUKO-REDUCED Routine 01/09/2020 RED BLOOD CELLS 9:36 PM CDT POCT-GLUCOSE METER Routine 01/09/2020 8:50 PM CDT TRANSFUSION SERVICE 01/09/2020 REPORT - SCAN 6:31 PM CDT TRANSFUSE LEUKO-REDUCED Routine 01/09/2020 RED BLOOD CELLS 6:08 PM CDT POCT-GLUCOSE METER Routine 01/09/2020 5:04 PM CDT SARS-COV2/RT-PCR ([facility] & STAT 01/09/2020 REF LABS) 2:18 PM CDT POCT-GLUCOSE METER Routine 01/09/2020 12:20 PM CDT CBC W/PLT COUNT & AUTO Routine 01/09/2020 DIFFERENTIAL 5:59 AM CDT PHOSPHORUS Routine 01/09/2020 5:59 AM CDT MAGNESIUM Routine 01/09/2020 5:59 AM CDT BASIC METABOLIC PANEL (7) Routine 01/09/2020 5:59 AM CDT CBC W/PLT COUNT & AUTO Routine 01/09/2020 DIFFERENTIAL 5:59 AM CDT FUNGUS CULTURE + SMEAR Routine 01/08/2020 9:49 AM CDT AFB CULTURE + SMEAR Routine 01/08/2020 (NON-SPUTUM) 9:49 AM CDT ANAEROBIC CULTURE Routine 01/08/2020 9:49 AM CDT SPIN/CONCENTRATION CHARGE Routine 01/08/2020 9:49 AM CDT WOUND CULTURE + GRAM Routine 01/08/2020 STAIN 9:49 AM CDT FUNGUS CULTURE + SMEAR Routine 01/08/2020 9:43 AM CDT AFB CULTURE + SMEAR Routine 01/08/2020 (NON-SPUTUM) 9:43 AM CDT ANAEROBIC CULTURE Routine 01/08/2020 9:43 AM CDT SURGICALLY OBTAINED Routine 01/08/2020 CULTURE + GRAM STAIN 9:43 AM CDT SPIN/CONCENTRATION CHARGE Routine 01/08/2020 9:43 AM CDT FUNGUS CULTURE + SMEAR Routine 01/08/2020 9:10 AM CDT AFB CULTURE + SMEAR Routine 01/08/2020 (NON-SPUTUM) 9:10 AM CDT ANAEROBIC CULTURE Routine 01/08/2020 9:10 AM CDT SPIN/CONCENTRATION CHARGE Routine 01/08/2020 9:10 AM CDT WOUND CULTURE + GRAM Routine 01/08/2020 STAIN 9:10 AM CDT REMOVAL,STERNAL WIRE 01/08/2020 Aicd mechanical 7:39 AM CDT complication CBC W/PLT COUNT & AUTO Routine 01/08/2020 DIFFERENTIAL 4:59 AM CDT TYPE AND SCREEN, Routine 01/08/2020 AUTOMATED 4:59 AM CDT PHOSPHORUS Routine 01/08/2020 4:59 AM CDT MAGNESIUM Routine 01/08/2020 4:59 AM CDT BASIC METABOLIC PANEL (7) Routine 01/08/2020 4:59 AM CDT CBC W/PLT COUNT & AUTO Routine 01/08/2020 DIFFERENTIAL 4:59 AM CDT CBC W/PLT COUNT & AUTO Routine 01/07/2020 DIFFERENTIAL 5:37 AM CDT PHOSPHORUS Routine 01/07/2020 5:37 AM CDT MAGNESIUM Routine 01/07/2020 5:37 AM CDT BASIC METABOLIC PANEL (7) Routine 01/07/2020 5:37 AM CDT CBC W/PLT COUNT & AUTO Routine 01/07/2020 DIFFERENTIAL 5:37 AM CDT VANCOMYCIN LEVEL, TROUGH DARLING 01/06/2020 5:30 PM CDT POCT-GLUCOSE METER Routine 01/06/2020 4:51 PM CDT POCT-GLUCOSE METER Routine 01/06/2020 12:39 PM CDT POCT-GLUCOSE METER Routine 01/06/2020 8:45 AM CDT POCT-GLUCOSE METER Routine 01/06/2020 7:35 AM CDT CBC W/PLT COUNT & AUTO Routine 01/06/2020 DIFFERENTIAL 4:00 AM CDT PHOSPHORUS Routine 01/06/2020 4:00 AM CDT MAGNESIUM Routine 01/06/2020 4:00 AM CDT BASIC METABOLIC PANEL (7) Routine 01/06/2020 4:00 AM CDT CBC W/PLT COUNT & AUTO Routine 01/06/2020 DIFFERENTIAL 4:00 AM CDT TRANSFUSION SERVICE 01/05/2020 REPORT - SCAN 6:00 PM CDT SUBCUTANEOUS ICD LEAD 01/05/2020 Malfunction of REMOVAL ONLY (S-ICD) 5:09 PM CDT biventricular im plantable cardioverter-defibrillato r (ICD), initial encounter Case Notes 1154 / Mac ANESTHESIA / MEDTRONIC AICD GENERATOR - REMOVAL 01/05/2020 Malfunction of ONLY (SINGLE, DUAL, 5:09 PM CDT biventricular imp lantable MULTIPLE) cardioverter-defibrillato r (ICD), initial encounter Case Notes 1154 / Mac ANESTHESIA / MEDTRONIC CBC W/PLT COUNT & AUTO Routine 01/05/2020 DIFFERENTIAL 3:51 AM CDT CBC W/PLT COUNT & AUTO Routine 01/05/2020 DIFFERENTIAL 3:51 AM CDT PHOSPHORUS Routine 01/05/2020 3:50 AM CDT MAGNESIUM Routine 01/05/2020 3:50 AM CDT BASIC METABOLIC PANEL (7) Routine 01/05/2020 3:50 AM CDT POCT-GLUCOSE METER Routine 01/04/2020 2:57 PM CDT CBC W/PLT COUNT & AUTO Routine 01/04/2020 DIFFERENTIAL 5:23 AM CDT TYPE AND SCREEN, Routine 01/04/2020 AUTOMATED 5:23 AM CDT VANCOMYCIN LEVEL, RANDOM Routine 01/04/2020 5:23 AM CDT PHOSPHORUS Routine 01/04/2020 5:23 AM CDT MAGNESIUM Routine 01/04/2020 5:23 AM CDT BASIC METABOLIC PANEL (7) Routine 01/04/2020 5:23 AM CDT CBC W/PLT COUNT & AUTO Routine 01/04/2020 DIFFERENTIAL 5:23 AM CDT VANCOMYCIN LEVEL, TROUGH Timed 01/03/2020 4:28 PM CDT SARS-COV2/RT-PCR ([facility] & STAT 01/03/2020 REF LABS) 4:27 PM CDT CBC W/PLT COUNT & AUTO Routine 01/03/2020 DIFFERENTIAL 6:05 AM CDT PHOSPHORUS Routine 01/03/2020 6:05 AM CDT MAGNESIUM Routine 01/03/2020 6:05 AM CDT BASIC METABOLIC PANEL (7) Routine 01/03/2020 6:05 AM CDT CBC W/PLT COUNT & AUTO Routine 01/03/2020 DIFFERENTIAL 6:05 AM CDT CBC W/PLT COUNT & AUTO Routine 01/02/2020 DIFFERENTIAL 4:45 AM CDT PHOSPHORUS Routine 01/02/2020 4:45 AM CDT MAGNESIUM Routine 01/02/2020 4:45 AM CDT BASIC METABOLIC PANEL (7) Routine 01/02/2020 4:45 AM CDT CBC W/PLT COUNT & AUTO Routine 01/02/2020 DIFFERENTIAL 4:45 AM CDT ECG 12-LEAD Routine 01/01/2020 4:48 PM CDT Procedure Note - Interface, External Ris In - 01/01/2020 4:56 PM CDT Ventricula r Rate 51 BPM Atrial Rate 104 BPM QRS Duration 160 ms Q-T Interval 476 ms QTC Calculatio n(Bazett) 438 ms R [place] -15 degrees T [place] 23 degrees Atrial fibrillati on with slow ventricula r response Right bundle branch block Septal infarct , age undetermin ed Abnormal ECG When compared with ECG of 0 06:33, Significan t changes have occurred ECG 12-LEAD DARLING 01/01/2020 4:48 PM CDT CBC W/PLT COUNT & AUTO Routine 01/01/2020 DIFFERENTIAL 4:41 AM CDT VITAMIN B12 AND FOLATE Routine 01/01/2020 4:41 AM CDT PHOSPHORUS Routine 01/01/2020 4:41 AM CDT MAGNESIUM Routine 01/01/2020 4:41 AM CDT BASIC METABOLIC PANEL (7) Routine 01/01/2020 4:41 AM CDT CBC W/PLT COUNT & AUTO Routine 01/01/2020 DIFFERENTIAL 4:41 AM CDT VANCOMYCIN LEVEL, TROUGH Timed 12/31/2019 6:37 PM CDT ECG 12-LEAD Routine 12/31/2019 6:33 AM CDT Procedure Note - Interface, External Ris In - 12/31/2019 6:42 AM CDT Ventricula r Rate 38 BPM Atrial Rate 129 BPM QRS Duration 158 ms Q-T Interval 526 ms QTC Calculatio n([place]ett) 418 ms R [place] 41 degrees T [place] 46 degrees Atrial fibrillati on with slow ventricula r response Right bundle branch block Abnormal ECG When compared with ECG of 0 16:44, Significan t changes have occurred ECG 12-LEAD Routine 12/31/2019 6:33 AM CDT CBC W/PLT COUNT & AUTO Routine 12/31/2019 DIFFERENTIAL 3:59 AM CDT PHOSPHORUS Routine 12/31/2019 3:59 AM CDT MAGNESIUM Routine 12/31/2019 3:59 AM CDT BASIC METABOLIC PANEL (7) Routine 12/31/2019 3:59 AM CDT CBC W/PLT COUNT & AUTO Routine 12/31/2019 DIFFERENTIAL 3:59 AM CDT CBC W/PLT COUNT & AUTO Routine 12/30/2019 DIFFERENTIAL 4:25 AM CDT PHOSPHORUS Routine 12/30/2019 4:25 AM CDT MAGNESIUM Routine 12/30/2019 4:25 AM CDT BASIC METABOLIC PANEL (7) Routine 12/30/2019 4:25 AM CDT CBC W/PLT COUNT & AUTO Routine 12/30/2019 DIFFERENTIAL 4:25 AM CDT VANCOMYCIN LEVEL, TROUGH Timed 12/29/2019 5:00 PM CDT SARS-COV2/RT-PCR ([facility] & Routine 12/29/2019 REF LABS) 10:27 AM CDT CBC W/PLT COUNT & AUTO Routine 12/29/2019 DIFFERENTIAL 6:09 AM CDT PHOSPHORUS Routine 12/29/2019 6:09 AM CDT MAGNESIUM Routine 12/29/2019 6:09 AM CDT BASIC METABOLIC PANEL (7) Routine 12/29/2019 6:09 AM CDT CBC W/PLT COUNT & AUTO Routine 12/29/2019 DIFFERENTIAL 6:09 AM CDT POCT-GLUCOSE METER Routine 12/28/2019 8:37 PM CDT XR CHEST 1 VIEW STAT 12/28/2019 PORTABLE/BEDSIDE 2:38 PM CDT POCT-GLUCOSE METER Routine 12/28/2019 7:21 AM CDT CBC W/PLT COUNT & AUTO Routine 12/28/2019 DIFFERENTIAL 4:56 AM CDT PHOSPHORUS Routine 12/28/2019 4:56 AM CDT MAGNESIUM Routine 12/28/2019 4:56 AM CDT BASIC METABOLIC PANEL (7) Routine 12/28/2019 4:56 AM CDT CBC W/PLT COUNT & AUTO Routine 12/28/2019 DIFFERENTIAL 4:56 AM CDT VANCOMYCIN LEVEL, TROUGH Timed 12/27/2019 5:22 PM CDT POCT-GLUCOSE METER Routine 12/27/2019 11:42 AM CDT XR STERNUM 2 VIEWS MIN Routine 12/27/2019 9:52 AM CDT XR CHEST 2 VIEWS Routine 12/27/2019 9:50 AM CDT POCT-GLUCOSE METER Routine 12/27/2019 8:14 AM CDT CBC W/PLT COUNT & AUTO Routine 12/27/2019 DIFFERENTIAL 4:29 AM CDT PHOSPHORUS Routine 12/27/2019 4:29 AM CDT MAGNESIUM Routine 12/27/2019 4:29 AM CDT BASIC METABOLIC PANEL (7) Routine 12/27/2019 4:29 AM CDT CBC W/PLT COUNT & AUTO Routine 12/27/2019 DIFFERENTIAL 4:29 AM CDT POCT-GLUCOSE METER Routine 12/26/2019 9:25 PM CDT POCT-GLUCOSE METER Routine 12/26/2019 8:01 AM CDT CBC W/PLT COUNT & AUTO Routine 12/26/2019 DIFFERENTIAL 6:45 AM CDT PHOSPHORUS Routine 12/26/2019 6:45 AM CDT MAGNESIUM Routine 12/26/2019 6:45 AM CDT BASIC METABOLIC PANEL (7) Routine 12/26/2019 6:45 AM CDT CBC W/PLT COUNT & AUTO Routine 12/26/2019 DIFFERENTIAL 6:45 AM CDT POCT-GLUCOSE METER Routine 12/25/2019 10:20 PM CDT POCT-GLUCOSE METER Routine 12/25/2019 5:13 PM CDT POCT-GLUCOSE METER Routine 12/25/2019 12:18 PM CDT POCT-GLUCOSE METER Routine 12/25/2019 8:47 AM CDT CBC W/PLT COUNT & AUTO Routine 12/25/2019 DIFFERENTIAL 4:39 AM CDT PHOSPHORUS Routine 12/25/2019 4:39 AM CDT MAGNESIUM Routine 12/25/2019 4:39 AM CDT BASIC METABOLIC PANEL (7) Routine 12/25/2019 4:39 AM CDT CBC W/PLT COUNT & AUTO Routine 12/25/2019 DIFFERENTIAL 4:39 AM CDT POCT-GLUCOSE METER Routine 12/24/2019 9:16 PM CDT BASIC METABOLIC PANEL (7) Routine 12/24/2019 8:45 PM CDT POCT-GLUCOSE METER Routine 12/24/2019 4:46 PM CDT BASIC METABOLIC PANEL (7) Add-On 12/24/2019 3:51 PM CDT POTASSIUM Routine 12/24/2019 3:51 PM CDT POCT-GLUCOSE METER Routine 12/24/2019 12:20 PM CDT CBC W/PLT COUNT & AUTO Routine 12/24/2019 DIFFERENTIAL 11:57 AM CDT PHOSPHORUS Routine 12/24/2019 11:57 AM CDT MAGNESIUM Routine 12/24/2019 11:57 AM CDT BASIC METABOLIC PANEL (7) Routine 12/24/2019 11:57 AM CDT CBC W/PLT COUNT & AUTO Routine 12/24/2019 DIFFERENTIAL 11:57 AM CDT POCT-GLUCOSE METER Routine 12/24/2019 7:16 AM CDT POCT-GLUCOSE METER Routine 12/23/2019 9:33 PM CDT POCT-GLUCOSE METER Routine 12/23/2019 5:18 PM CDT VANCOMYCIN LEVEL, TROUGH Timed 12/23/2019 5:07 PM CDT POCT-GLUCOSE METER Routine 12/23/2019 12:37 PM CDT POCT-GLUCOSE METER Routine 12/23/2019 8:00 AM CDT CBC W/PLT COUNT & AUTO Routine 12/23/2019 DIFFERENTIAL 4:34 AM CDT PHOSPHORUS Routine 12/23/2019 4:34 AM CDT MAGNESIUM Routine 12/23/2019 4:34 AM CDT BASIC METABOLIC PANEL (7) Routine 12/23/2019 4:34 AM CDT CBC W/PLT COUNT & AUTO Routine 12/23/2019 DIFFERENTIAL 4:[address] ABDOMEN/PELVIS WITHOUT Routine 12/23/2019 IV CONTRAST 12:19 AM CDT POCT-GLUCOSE METER Routine 12/22/2019 9:20 PM CDT POCT-GLUCOSE METER Routine 12/22/2019 4:56 PM CDT POCT-GLUCOSE METER Routine 12/22/2019 2:23 PM CDT TRANSESOPHAGEAL ECHO Routine 12/22/2019 11:07 AM CDT POCT-GLUCOSE METER Routine 12/22/2019 7:36 AM CDT BLOOD CULTURE Routine 12/22/2019 4:50 AM CDT CBC W/PLT COUNT & AUTO Routine 12/22/2019 DIFFERENTIAL 4:37 AM CDT PHOSPHORUS Routine 12/22/2019 4:37 AM CDT MAGNESIUM Routine 12/22/2019 4:37 AM CDT BASIC METABOLIC PANEL (7) Routine 12/22/2019 4:37 AM CDT CBC W/PLT COUNT & AUTO Routine 12/22/2019 DIFFERENTIAL 4:37 AM CDT BLOOD CULTURE Routine 12/22/2019 4:37 AM CDT SARS-COV2/RT-PCR ([facility] & STAT 12/21/2019 REF LABS) 10:30 PM CDT POCT-GLUCOSE METER Routine 12/21/2019 9:23 PM CDT POCT-GLUCOSE METER Routine 12/21/2019 5:21 PM CDT OCCULT BLOOD, STOOL Routine 12/21/2019 3:56 PM CDT CONT WAVE PULSED DOPPLER Routine 12/21/2019 3:04 PM CDT COLOR-FLOW MAPPING Routine 12/21/2019 3:04 PM CDT FERRITIN Routine 12/21/2019 2:10 PM CDT IRON, TIBC, % SAT. Routine 12/21/2019 (WITHOUT FERRITIN) 2:10 PM CDT POCT-GLUCOSE METER Routine 12/21/2019 12:23 PM CDT URINALYSIS W/ REFLEX Routine 12/21/2019 URINE CULTURE 8:54 AM CDT POCT-GLUCOSE METER Routine 12/21/2019 8:15 AM CDT CBC W/PLT COUNT & AUTO Routine 12/21/2019 DIFFERENTIAL 4:29 AM CDT PHOSPHORUS Routine 12/21/2019 4:29 AM CDT MAGNESIUM Routine 12/21/2019 4:29 AM CDT BASIC METABOLIC PANEL (7) Routine 12/21/2019 4:29 AM CDT CBC W/PLT COUNT & AUTO Routine 12/21/2019 DIFFERENTIAL 4:29 AM CDT POCT-GLUCOSE METER Routine 12/20/2019 9:24 PM CDT POCT-GLUCOSE METER Routine 12/20/2019 5:43 PM CDT POCT-GLUCOSE METER Routine 12/20/2019 12:25 PM CDT POCT-GLUCOSE METER Routine 12/20/2019 8:29 AM CDT CBC W/PLT COUNT & AUTO Routine 12/20/2019 DIFFERENTIAL 4:26 AM CDT TSH/FREE T4 IF INDICATED Routine 12/20/2019 4:26 AM CDT C-REACTIVE PROTEIN Routine 12/20/2019 4:26 AM CDT PHOSPHORUS Routine 12/20/2019 4:26 AM CDT MAGNESIUM Routine 12/20/2019 4:26 AM CDT BASIC METABOLIC PANEL (7) Routine 12/20/2019 4:26 AM CDT CBC W/PLT COUNT & AUTO Routine 12/20/2019 DIFFERENTIAL 4:26 AM CDT POCT-GLUCOSE METER Routine 12/20/2019 3:49 AM CDT BLOOD CULTURE Routine 12/19/2019 IDENTIFICATION PANEL 6:33 PM CDT BLOOD CULTURE Routine 12/19/2019 6:33 PM CDT POCT-GLUCOSE METER Routine 12/19/2019 4:52 PM CDT WOUND CULTURE + GRAM Routine 12/19/2019 STAIN 4:20 PM CDT BLOOD CULTURE Routine 12/19/2019 3:05 PM CDT POCT-GLUCOSE METER Routine 12/19/2019 12:03 PM CDT POCT-GLUCOSE METER Routine 12/19/2019 7:59 AM CDT CBC W/PLT COUNT & AUTO Routine 12/19/2019 DIFFERENTIAL 4:09 AM CDT PHOSPHORUS Routine 12/19/2019 4:09 AM CDT MAGNESIUM Routine 12/19/2019 4:09 AM CDT BASIC METABOLIC PANEL (7) Routine 12/19/2019 4:09 AM CDT CBC W/PLT COUNT & AUTO Routine 12/19/2019 DIFFERENTIAL 4:09 AM CDT POCT-GLUCOSE METER Routine 12/18/2019 9:02 PM CDT POCT-GLUCOSE METER Routine 12/18/2019 5:14 PM CDT POCT-GLUCOSE METER Routine 12/18/2019 12:49 PM CDT POCT-GLUCOSE METER Routine 12/18/2019 8:22 AM CDT CBC W/PLT COUNT & AUTO Routine 12/18/2019 DIFFERENTIAL 4:29 AM CDT PHOSPHORUS Routine 12/18/2019 4:29 AM CDT MAGNESIUM Routine 12/18/2019 4:29 AM CDT BASIC METABOLIC PANEL (7) Routine 12/18/2019 4:29 AM CDT CBC W/PLT COUNT & AUTO Routine 12/18/2019 DIFFERENTIAL 4:29 AM CDT HEMOGLOBIN A1C Routine 12/18/2019 4:29 AM CDT POCT-GLUCOSE METER Routine 12/17/2019 9:59 PM CDT POCT-GLUCOSE METER Routine 12/17/2019 5:29 PM CDT ECG 12-LEAD Routine 12/17/2019 4:44 PM CDT Procedure Note - Interface, External Ris In - 12/17/2019 4:54 PM CDT Ventricula r Rate 48 BPM Atrial Rate 48 BPM P-R Interval 130 ms QRS Duration 142 ms Q-T Interval 466 ms QTC Calculatio n(Bazett) 416 [address] [place] 89 degrees R [place] -22 degrees T [place] -6 degrees Sinus bradycardi a with marked sinus arrhythmia with ventricula r escape complexes Right bundle branch block Septal infarct (cited on or before 0) Abnormal ECG When compared with ECG of 0 18:17, Significan t changes have occurred ECG 12-LEAD Routine 12/17/2019 4:44 PM CDT XR RIBS WITH PA CHEST 3 DARLING 12/17/2019 VIEWS MIN RIGHT 3:27 PM CDT POCT-GLUCOSE METER Routine 12/17/2019 12:25 PM CDT PHOSPHORUS Routine 12/17/2019 8:18 AM CDT MAGNESIUM Routine 12/17/2019 8:18 AM CDT BASIC METABOLIC PANEL (7) Routine 12/17/2019 8:18 AM CDT POCT-GLUCOSE METER Routine 12/17/2019 7:55 AM CDT CBC W/PLT COUNT & AUTO Routine 12/17/2019 DIFFERENTIAL 7:11 AM CDT CBC W/PLT COUNT & AUTO Routine 12/17/2019 DIFFERENTIAL 7:11 AM CDT POCT-GLUCOSE METER Routine 12/16/2019 9:50 PM CDT ECG 12-LEAD Routine 12/16/2019 6:17 PM CDT Procedure Note - Interface, External Ris In - 12/17/2019 11:13 AM CDT Ventricula r Rate 61 BPM Atrial Rate 227 BPM QRS Duration 132 ms Q-T Interval 440 ms QTC Calculatio n(Bazett) 442 ms R [employer] -27 degrees T [employer] [place] -15 degrees Atrial fibrillati on Right bundle branch block Septal infarct , age undetermin ed Abnormal ECG When compared with ECG of 5 16:40, Significan t changes have occurred ECG 12-LEAD Routine 12/16/2019 6:17 PM CDT NM LUNG PERFUSION SCAN STAT 12/16/2019 5:49 PM CDT POCT-GLUCOSE METER Routine 12/16/2019 1:05 PM CDT TROPONIN I Routine 12/16/2019 1:04 PM CDT BLOOD CULTURE Routine 12/16/2019 1:04 PM CDT BLOOD CULTURE Routine 12/16/2019 12:56 PM CDT URINALYSIS W/ REFLEX Routine 12/16/2019 URINE CULTURE 12:15 PM CDT SARS-COV2/RT-PCR ([facility] & Routine 12/16/2019 REF LABS) 12:15 PM CDT 2D ECHO W/ DOPPLER STAT 12/16/2019 (CW/PW/COLOR) 11:[address] CHEST WITHOUT IV DARLING 12/16/2019 CONTRAST 9:52 AM CDT CBC W/PLT COUNT & AUTO Routine 12/16/2019 DIFFERENTIAL 8:32 AM CDT CBC W/PLT COUNT & AUTO Routine 12/16/2019 DIFFERENTIAL 8:32 AM CDT PHOSPHORUS Routine 12/16/2019 8:32 AM CDT MAGNESIUM Routine 12/16/2019 8:32 AM CDT BASIC METABOLIC PANEL (7) Routine 12/16/2019 8:32 AM CDT TROPONIN I Routine 12/16/2019 8:32 AM CDT POCT-GLUCOSE METER Routine 12/16/2019 8:17 AM CDT after 04/02/2019 Results * ARRYTHMIA IMPLANT REPORT - SCAN (03/05/2020 3:10 PM CDT) Only the most recent of 4 results within the time period is included. Narrative Performed At This result has an attachment that is n ot available. * RHYTHM STRIP - SCAN (01/16/2020 2:21 PM CDT) Only the most recent of 3 results within the time period is included. Narrative Performed At This result has an attachment that is n ot available. * CARDIAC CATH REPORT - SCAN (01/16/2020 8:21 AM CDT) Narrative Performed At This result has an attachment that is n ot available. * CARDIAC CATH REPORT - SCAN (01/16/2020 8:21 AM CDT) Narrative Performed At This result has an attachment that is n ot available. * CBC with platelet count + automated diff (01/12/2020 5:55 AM CDT) Only the most recent of 28 results within the time period is included. WBC 6.6 3.5 - 10.5 K/L [facility] RBC 2.73 (L) 3.93 - 5.22 M/L [facility] Hemoglobin 8.3 (L) 11.2 - 15.7 GM/DL [facility] Hematocrit 27.1 (L) 34.1 - 44.9 % [facility] MCV 99.3 (H) 79.4 - 94.8 fL [facility] MCH 30.4 25.6 - 32.2 pg [facility] MCHC 30.6 (L) 32.2 - 35.5 GM/DL [facility] RDW 16.1 (H) 11.7 - 14.4 % [facility] Platelets 136 (L) 150 - 450 K/CU MM [facility] MPV 10.5 9.4 - 12.3 fL [facility] nRBC 0 0 - 0 /100 WBC [facility] % Neutros 48 % [facility] % Lymphs 32 % [facility] % Monos 8 % [facility] % Eos 12 % [facility] % Baso 1 % [facility] # Neutros 3.13 1.56 - 6.13 K/L [facility] # Lymphs 2.07 1.18 - 3.74 K/L [facility] # Monos 0.53 (H) 0.24 - 0.36 K/L [facility] # Eos 0.78 (H) 0.04 - 0.36 K/L [facility] # Baso 0.04 0.01 - 0.08 K/L [facility] Immature 0 0 - 1 % [facility] Specimen Blood Performing Organization Address City/[facility] Ph one Number [address] [address] MED[facility] CENTER * Phosphorus (01/12/2020 5:55 AM CDT) Only the most recent of 28 results within the time period is included. Phosphorus 2.8 2.3 - 4.7 mg/dL [facility] Specimen Blood Narrative Performed At Concrete Floor Installer ID - [id number] [facility] Performing Organization Address City/[facility]/Zipcode Ph one [address] [facility] * Magnesium (01/12/2020 5:55 AM CDT) Only the most recent of 28 results within the time period is included. Magnesium 2.5 1.6 - 2.6 mg/dL [facility] Specimen Blood Narrative Performed At Concrete Floor Installer ID - [facility] Performing Organization Address [facility] one [address] [facility] * Basic Metabolic Panel (01/12/2020 5:55 AM CDT) Only the most recent of 30 results within the time period is included. Sodium 138 136 - 145 meq/L [facility] Potassium 4.7 3.5 - 5.1 meq/L [facility] Chloride 102 98 - 107 meq/L [facility] CO2 32 (H) 22 - 29 meq/L [facility] BUN 45 (H) 7 - 21 mg/dL [facility] Creatinine 1.88 (H) 0.57 - 1.25 mg/dL [facility] Glucose 88 70 - 105 mg/dL [facility] Calcium 9.2 8.4 - 10.2 mg/dL [facility] EGFR Comment: INSUFFICIENT CLINICAL [facility] DATA TO CALCULATE ESTIMATED [facility] GFR. [facility] Specimen Blood Narrative Performed At Concrete Floor Installer ID - [facility] Performing Organization Address [facility] one [address] [facility] * POC-Glucose meter (01/11/2020 9:26 PM CDT) Only the most recent of 60 results within the time period is included. POC-Glucose 89Comment: : TESTED AT [facility] 70 - 110 mg/dL C HI [facility] Meter [id number] [facility] [id number]: Concrete Floor Installer/Flat Cutter ID MEDICAL CENTER = [id number] for Mine Trevino Specimen Blood Performing Organization Address City/[facility] Ph one Number [facility] BCM [address] [place], [place] [address] [facility]ENTER * TRANSFUSION SERVICE REPORT - SCAN (01/11/2020 6:01 PM CDT) Only the most recent of 4 results within the time period is included. Narrative Performed At This result has an attachment that is n ot available. * XR chest 1 view portable / bedside (01/11/2020 5:21 AM CDT) Only the most recent of 2 results within the time period is included. Specimen Narrative Performed At FINAL REPORT GE RIS CLINICAL INDICATION: ICD placement Comparison: 12/28/2019 A single view of the chest is submitted . There is been interval removal of a lef t-sided transthoracic ICD and placement of a right subclavian, single -lead ICD. There is no associated pneumothorax or hematoma. The cardiomediastinal contours are stab le. There is no focal consolidation, large pleural effusion or evidence of overt pulmonary edema. A right-sided PICC line remains in plac e. Signed: Bobby Leon MD Report Verified Date/Time: 01/11/2020 06:23:06 Procedure Note Interface, External Ris In - 01/11/2020 6:25 AM CDT FINAL REPORT CLINICAL INDICATION: ICD placement Comparison: 12/28/2019 A single view of the chest is submitted. There is been interval removal of a left-sided transthoracic ICD and placement of a right subclavian, single-lead ICD. There is no associated pneumothorax or hematoma. The cardiomediastinal contours are stable. There is no focal consolidation, large pleural effusion or evidence of overt pulmonary edema. A right-sided PICC line remains in place. Signed: Bobby Leon MD Report Verified Date/Time: 01/11/2020 06:23:06 Performing Organization Address City/[facility] one Number GE RIS * Prepare Leuko-Red RBC (01/10/2020 11:54 PM CDT) CROSSMATCH COMPATIBLE SAFETRACE TX Unit ABO O Pos SAFETRACE TX UNIT NUMBER [id number] SAFETRACE TX Status TX_TIMEINCHART SAFETRACE TX Blood Bank RED BLOOD CELLS SAFETRACE TX Product PRODUCT CODE [id number] SAFETRACE TX CROSSMATCH COMPATIBLE SAFETRACE TX Unit ABO O Pos SAFETRACE TX UNIT NUMBER [id number] SAFETRACE TX Status TX_TIMEINCHART SAFETRACE TX Blood Bank RED BLOOD CELLS SAFETRACE TX Product PRODUCT CODE [id number] SAFETRACE TX Specimen Other Performing Organization Address [facility] one Number SAFETRACE [place] * Transfuse Leuko-Red RBC (01/09/2020 9:36 PM CDT) Only the most recent of 2 results within the time period is included. * SARS-CoV2/RT-PCR (Asymptomatic ONLY) (01/09/2020 2:18 PM CDT) Only the most recent of 5 results within the time period is included. SARS-COV2/RT-PC Negative Not Detected, [facility] R Negative, See [facility] external report for MEDICAL [facility]ENTER linked test [facility]OV-2 [facility] PERFORMING LAB [facility] Specimen Other - Nasopharyngeal wall structure (body structure) Narrative Performed At Negative result for this test determine s that SARS-CoV-2 RNA was not present in [facility] the specimen above the Limit of Detecti on (LOD). However, Negative results do [facility] not preclude SARS-CoV-2 infection and s hould not be used as the sole basis for treatment or patient management decisio ns. Negative results must be combined with clinical observations, patient his tory, and epidemiological information. A false negative result may occur if a sp ecimen is improperly collected, transported or handled. A false negat rogelio result should be considered if patient's recent exposures or clinical presentation indicate that COVID-19 (SARS-CoV-2) is likely and diagnostic t ests for other causes of illness are negative. Re-testing should be consid ered in cases of suspected false negatives. The limit of detection for this assay i s 800 copies/mL. This SARS CoV-2 test is a real-time RT- PCR test intended for the qualitative detection of nucleic acid from SARS-CoV -2 in a nasopharyngeal swab specimen collected from individuals suspected of COVID-19 by their healthcare provider. This test has not been Food and Drug Ad ministration (FDA) cleared or approved. This is a modified version of an appr zeke Emergency Use Authorization (EUA) and is in the process of review by the FDA. Once authorized by the FDA, the issued EUA will be effective until the declaration that circumstances exist justifying the authorization of the oscar rgency use of in vitro diagnostic tests for detection and/or diagnosis of COVID -19 is terminated under Section 564(b)(2) of the Act or the EUA is revoked under Section 564(g) of the Act. Fact Sheet for Healthcare Providers: https://www.[employer]/sites/default/files/product/documents/Fact_Sheet_HC_Provi omrc_Ttms_URWL-GfG-4.pdf Fact Sheet for Healthcare Patients: https://www.Evince/sites/default/files/product/documents/Fact_Sheet_Patients _Icpf_GALQ-DsZ-2.pdf Performing Laboratory: [address] [place] [address] Performing Organization Address [facility] Ph one Number [place] [address] [facility] * AFB CULTURE + SMEAR (NON-SPUTUM) (01/08/2020 9:49 AM CDT) Only the most recent of 3 results within the time period is included. Result No acid-fast bacilli isolated [facility] in 42 days [facility] Smear No acid fast bacilli seen [facility] Specimen Wound - Chest wall structure (body structure) Performing Organization Address [facility] Ph one Number [address] [facility] * Anaerobic culture (01/08/2020 9:49 AM CDT) Only the most recent of 3 results within the time period is included. Result No anaerobes isolated [facility] Specimen Wound - Chest wall structure (body structure) Performing Organization Address [facility] one Number [address] [facility] * Fungus culture + smear (01/08/2020 9:49 AM CDT) Only the most recent of 3 results within the time period is included. Result No fungus isolated in 28 days [facility] Fungus Smear No fungi seen [facility] Specimen Wound - Chest wall structure (body structure) Performing Organization Address [facility] one Number [address] [facility] * SPIN/CONCENTRATION CHARGE (01/08/2020 9:49 AM CDT) Only the most recent of 3 results within the time period is included. Concentration Done [facility] Specimen Wound - Chest wall structure (body structure) Performing Organization Address [facility] one Number [address] [facility] * Wound culture + gram stain (01/08/2020 9:49 AM CDT) Only the most recent of 3 results within the time period is included. Result No growth [facility] Gram Stain No WBCs [facility] Gram Stain No organisms seen [facility] Specimen Wound - Chest wall structure (body structure) Performing Organization Address [facility] one Number [address] [facility] * Surgically obtained culture + gram stain (01/08/2020 9:43 AM CDT) Result No growth [facility] Gram Stain No WBCs [facility] Gram Stain No organisms seen [facility] Specimen Tissue - Middle parasternal region (body structure) Performing Organization Address [facility] Ph one Number [address] [facility] * Type and screen, automated (01/08/2020 4:59 AM CDT) Only the most recent of 2 results within the time period is included. ABO/RH O POSITIVE [facility] Ab Scrn NEGATIVE [facility] Specimen Blood Performing Organization Address [facility] one Number [address] [address] [phone] [facility] * Vancomycin level, trough (01/06/2020 5:30 PM CDT) Only the most recent of 6 results within the time period is included. Vancomycin Tr 18.1 10.0 - 20.0 ug/mL [facility] Specimen Blood Narrative Performed At Concrete Floor Installer ID - DB [facility] Performing Organization Address [facility] one Number [address] [facility] * Vancomycin level, random (01/04/2020 5:23 AM CDT) Vancomycin Rm 19.6 ug/mL [facility] Specimen Blood Narrative Performed At Reference Range: No Normals [facility] Concrete Floor Installer ID - PIAYA L [facility] Performing Organization Address [facility] one Number [address] [facility] * ECG 12 lead (01/01/2020 4:48 PM CDT) Only the most recent of 4 results within the time period is included. Specimen Narrative Performed At Ventricular Rate 51 BPM GE MUSE Atrial Rate 104 BPM QRS Duration 160 ms Q-T Interval 476 ms QTC Calculation(Bazett) 438 ms R [employer] -15 degrees T [employer] [place] 23 degrees Atrial fibrillation with slow ventricul ar response Right bundle branch block Cannot exclude old anterior infarct Nonspecific T wave abnormality inferior leads Abnormal ECG When compared with ECG of 31-DEC-2019 0 6:33, Different placement of leads V2 and V3 Limb leads are no longer misplaced Confirmed by MD LEIVA YOCHAI ([id number] ) on 01/02/2020 6:27:35 AM Procedure Note Interface, External Ris In - 01/02/2020 6:27 AM CDT Ventricular Rate 51 BPM Atrial Rate 104 BPM QRS Duration 160 ms Q-T Interval 476 ms QTC Calculation(Bazett) 438 ms R [employer] -15 degrees T [employer] 23 degrees Atrial fibrillation with slow ventricular response Right bundle branch block Cannot exclude old anterior infarct Nonspecific T wave abnormality inferior leads Abnormal ECG When compared with ECG of 31-DEC-2019 06:33, Different placement of leads V2 and V3 Limb leads are no longer misplaced Confirmed by MD LEIVA YOCHAI ([id number]) on 01/02/2020 6:27:35 AM Performing Organization Address City/[facility] Ph one Number GE MUSE * Vitamin B12 and Folate (01/01/2020 4:41 AM CDT) Vitamin B12 648 213 - 816 pg/mL [facility] Folate 10.60 >=7.00 ng/mL [facility] Specimen Blood Narrative Performed At Concrete Floor Installer ID - PIAYA L [facility] Performing Organization Address City/State/[facility] Centercode Ph one Number [facility] [address] [place], [place] [address] MEDICAL CENTER * XR sternum 2 views min (12/27/2019 9:52 AM CDT) Specimen Narrative Performed At FINAL REPORT RIS CLINICAL HISTORY: assess ICD lead posit ion TECHNIQUE: 2 views of the chest, four v iews of the sternum COMPARISON: Chest 03/12/2015 IMPRESSION: There is a new left lower chest wall AI CD with a single lead projecting over the left upper chest wa ll. There is no pneumothorax. There are no focal infiltrates or effus ions. Sternotomy wires are again noted without cardiomegaly. Signed: Tacos Soriano MD Report Verified Date/Time: 12/27/2019 10:16:20 Reading Location: [facility] [employer] Reading Room Procedure Note Interface, External Ris In - 12/27/2019 10:18 AM CDT FINAL REPORT CLINICAL HISTORY: assess ICD lead position TECHNIQUE: 2 views of the chest, four views of the sternum COMPARISON: Chest 03/12/2015 IMPRESSION: There is a new left lower chest wall AICD with a single lead projecting over the left upper chest wall. There is no pneumothorax. There are no focal infiltrates or effusions. Sternotomy wires are again noted without cardiomegaly. Signed: Tacos Soriano MD Report Verified Date/Time: 12/27/2019 10:16:20 Reading Location: [facility] Radiology Reading Room Performing Organization Address City/State/[facility] Cent[facility]ode Ph one Number GE RIS * XR chest 2 views (12/27/2019 9:50 AM CDT) Specimen Narrative Performed At FINAL REPORT GE RIS CLINICAL HISTORY: assess ICD lead posit ion TECHNIQUE: 2 views of the chest, four v iews of the sternum COMPARISON: Chest 03/12/2015 IMPRESSION: There is a new left lower chest wall AI CD with a single lead projecting over the left upper chest wa ll. There is no pneumothorax. There are no focal infiltrates or effus ions. Sternotomy wires are again noted without cardiomegaly. Signed: Tacos Soriano MD Report Verified Date/Time: 12/27/2019 10:16:20 Reading Location: [facility] [employer] Reading Room Procedure Note Interface, External Ris In - 12/27/2019 10:18 AM CDT FINAL REPORT CLINICAL HISTORY: assess ICD lead position TECHNIQUE: 2 views of the chest, four views of the sternum COMPARISON: Chest 03/12/2015 IMPRESSION: There is a new left lower chest wall AICD with a single lead projecting over the left upper chest wall. There is no pneumothorax. There are no focal infiltrates or effusions. Sternotomy wires are again noted without cardiomegaly. Signed: Tacos Soriano MD Report Verified Date/Time: 12/27/2019 10:16:20 Reading Location: [facility] Radiology Reading Room Performing Organization Address City/State/Zipcode Ph one Number GE RIS * Potassium (12/24/2019 3:51 PM CDT) Potassium 6.0 (HH) 3.5 - 5.1 meq/L [facility] Specimen Blood Narrative Performed At Concrete Floor Installer ID - EVANGELINA Lafleur [facility] Performing Organization Address City/[facility] Centercohi Ph one Number [facility] [address] [place] [address] MED[facility] CENTER * CT abdomen/pelvis without iv contrast (12/23/2019 12:19 AM CDT) Specimen Narrative Performed At FINAL REPORT GE RIS ABDOMINAL AND PELVIS CT DATED 12/23/2019 CLINICAL INFORMATION: recent lap band removal. Wound drainage and blood cultures with MRSA TECHNIQUE: Axial images of the abdome n and pelvis were obtained from diaphragm to the pubic symphysis with G I contrast. Intravenous contrast was not given. This exam was performed according to [facility]al dose-optimization program, which includ es automated exposure control, adjustment of the mA and/or kV accordin g to patient size and/or use of interactive reconstruction technique . COMMENT: Liver and spleen are normal in size without focal abnormality. Gallbladder is distended . No gallstone or biliary dilatation is noted. Pancreas and adrenals are unremarkable. Both kidneys are normal in size. No hyd ronephrosis, hydroureter, urolithiasis is seen. The opacified small bowel is unremarkab le. Diverticular disease is seen in the large bowel without diverti culitis. Appendix is not visualized. Vascular calcification is seen in the a bdominal aorta, splenic, bilateral renal, superior mesenteric, i nferior mesenteric, and bilateral iliac arteries. No mass, pneumoperitoneum or ascites is present. IMPRESSION: 1. No pneumoperitoneum or loculated flu id collection the abdomen or pelvis. 2. Vascular calcification in the abdomi nal aorta and branch vessels. 3. Diverticulosis without diverticuliti s. Signed: Kevon Petersen MD Report Verified Date/Time: 12/23/2019 09:43:40 Reading Location: [facility] B1 [id number] Ortho Co nsult Reading Room Procedure Note Interface, External Ris In - 12/23/2019 9:45 AM CDT FINAL REPORT ABDOMINAL AND PELVIS CT DATED 12/23/2019 CLINICAL INFORMATION: recent lap band removal. Wound drainage and blood cultures with MRSA TECHNIQUE: Axial images of the abdomen and pelvis were obtained from diaphragm to the pubic symphysis with GI contrast. Intravenous contrast was not given. This exam was performed according to our departmental dose-optimization program, which includes automated exposure control, adjustment of the mA and/or kV according to patient size and/or use of interactive reconstruction technique. COMMENT: Liver and spleen are normal in size without focal abnormality. Gallbladder is distended. No gallstone or biliary dilatation is noted. Pancreas and adrenals are unremarkable. Both kidneys are normal in size. No hydronephrosis, hydroureter, urolithiasis is seen. The opacified small bowel is unremarkable. Diverticular disease is seen in the large bowel without diverticulitis. Appendix is not visualized. Vascular calcification is seen in the abdominal aorta, splenic, bilateral renal, superior mesenteric, inferior mesenteric, and bilateral iliac arteries. No mass, pneumoperitoneum or ascites is present. IMPRESSION: 1. No pneumoperitoneum or loculated flui d collection the abdomen or pelvis. 2. Vascular calcification in the abdomin al aorta and branch vessels. 3. Diverticulosis without diverticulitis . Signed: Kevon Petersen MD Report Verified Date/Time: 12/23/2019 09:43:40 Reading Location: [facility] B1 C013X Ortho Consult Reading Room Performing Organization Address City/State/Zipcode Ph one Number GE RIS * Transesophageal echo (12/22/2019 11:07 AM CDT) Ejection [facility] ECHO Fraction HEARTLAB MKCKESSON CPACS Specimen Narrative Performed At Transesophageal Echocardiography Report (GEORGE) [facility]ART[facility] Demographics [facility] Patient Name DUKE HANNAH of Study 12/22/2019 ANGELO Gender Female Visit Number [id number] Race Unknown Room Number 1154 Number Date of 1945 Referring Physician Jaquan Santiago MD Age 74 year(s) Reuse Technician Mian Dickey MD Physician Procedure Type of Study GEORGE procedure:TRANSESOPHAGE AL ECHO Indications:Endocarditis. Clinical History ARTHRITIS,CKD,DM,HTN,ICMP,S/P ACB,PERIC ARDIAL WINDOW,LVAD Height: 70 inches Weight: 81.65 kg (180 lbs) BSA: 2 m^2 BMI: 25.83 kg/m^2 HR: 58 bpm BP: 136/64 mmHg Procedure Informed Consent GEORGE procedure notes Moderate sedation by performing MD can g 2 mg IV versed and 25 mcg IV fentanyl. . Summary 1. Enlarged LV size with low normal LV systolic function. LA size is enlarged. No evidence of left atrial or left atrial appendage thrombus. 2. Enlarged RV with mild to moderately reduced RV systolic function. RA size is dilated. 3. Severe aortic valve stenosis. AoV ar ea by 3D planimtery is in the range of 0.93 cm2. AoV area at rest by contin uity equation is in the range of 0.94 cm2. AoV resting dimensionless obs tructive index (DOI) - 0.27. Peak/mean gradient of 54/32 mmHg. Moder rtq-lq-jgdydm AoV cusp calcification. Normal tri-leaflet Aorti c Valve. Moderate AoV cusp thickening. 4. Glsp-kz-ohzfhjtd MV leaflet thickeni ng and calcification. Mild mitral annular calcification. Moderate central mitral regurgitation. 5. A patent foramen ovale (PFO) is demo nstrated by color Doppler with continuous left to right shunting. Previous Study Compared to the prior TTE, the gradient s were better interrogated. Signature Findings Rhythm/BP 3D imaging (cpt 97719) r endering with interpretation was performed. Left Enlarged LV size with low normal LV systolic function. Ventricle Left Atrium LA size is enlarged . No evidence of left atrial or left atrial appendage thrombus. Right Enlarged RV with mild to moderately reduced RV systolic Ventricle function. Right Atrium RA size is dilated. Atrial A patent foramen ovale (PFO) is demonstrated by color Doppler Septum with continuous left to right shunting. Aortic Valve Normal tri-leaflet Aortic Valve. Moderate AoV cusp thickening. Moderat e-to-severe AoV cusp calcification. Severe aortic valve stenos is. AoV resting dimensionless obstructive index (DOI) - 0.27. AoV area by 3D planimtery is in the range of 0.93 cm2. AoV ar ea at rest by continuity equation is in the range of 0.94 c m2 ( 0.47 cm2/BSA). Mitral Valve Crpf-jk-ibzykjtq MV leafle t thickening and calcification. Mild mitral annular calcification. Moderate central mi tral regurgitation. Tricuspid Mild tricuspid regurgita tion. Valve Estimated peak systoli c PA pressure is 40-45 mmHg + RA pressure. (RA press ure indeterminate on this exam) Pulmonic Normal PV structure appe ars normal by available views. Valve Aorta Aortic root size (SInu s of Valsalva diameter) is normal . Pericardium No significant pericardia l effusion is visualized. Chambers/Structures Left Ventricle LVOT Diameter: 2.1 cm Doppler/Quantitative Measurements Aortic Valve Peak Velocity: 3.64 m/s Mean Velocity: 2.65 m/s Peak Gradient: 53 mmHg Mean Gradient: 32 mmHg AV Area (continuity): 0.94 cm^2 AV VTI: 90.4 cm AV DVI: 0.27 LVOT Peak Velocity: 0.97 m/s Peak Gradient: 4 mmHg Mean Velocity: 0.69 m/s Mean Gradient: 2 mmHg LVOT Diameter: 2.1 cm LVOT VTI: 24.5 cm LVOT Area: 3.46 cm^2 LVOT SV:84.82 ml LVOT CO: 4.92 l/min LVOT CI: 2.46 l/min/m^2 Procedure Note Interface, External Ris In - 12/22/2019 11:05 PM CDT Transesophageal Echocardiography Report (GEORGE) Demographics Patient Name DUKE HANNAH Date of Study 12/22/2019 ANGELO Gender Female Visit Number [id number] Race Unknown Room Number 1154 Number Date of 1945 Referring Physician Jaquan Santiago MD Age 74 year(s) Reuse Technician Mian Dickey MD Physician Procedure Type of Study GEORGE procedure:TRANSESOPHAGEAL ECHO Indications:Endocarditis. Clinical History ARTHRITIS,CKD,DM,HTN,ICMP,S/P ACB,PERICARDIAL WINDOW,LVAD Height: 70 inches Weight: 81.65 kg (180 lbs) BSA: 2 m^2 BMI: 25.83 kg/m^2 HR: 58 bpm BP: 136/64 mmHg Procedure Informed Consent GEORGE procedure notes Moderate sedation by performing MD using 2 mg IV versed and 25 mcg IV fentanyl. . Summary 1. Enlarged LV size with low normal LV systolic function. LA size is enlarged. No evidence of left atrial or left atrial appendage thrombus. 2. Enlarged RV with mild to moderately reduced RV systolic function. RA size is dilated. 3. Severe aortic valve stenosis. AoV area by 3D planimtery is in the range of 0.93 cm2. AoV area at rest by continuity equation is in the range of 0.94 cm2. AoV resting dimensionless obstructive index (DOI) - 0.27. Peak/mean gradient of 54/32 mmHg. Ygsprsjr-fc-fuuffn AoV cusp calcification. Normal tri-leaflet Aortic Valve. Moderate AoV cusp thickening. 4. Izpr-kv-kiziowrg MV leaflet thickening and calcification. Mild mitral annular calcification. Moderate central mitral regurgitation. 5. A patent foramen ovale (PFO) is demonstrated by color Doppler with continuous left to right shunting. Previous Study Compared to the prior TTE, the gradients were better interrogated. Signature Findings Rhythm/BP 3D imaging (cpt 59070) rendering with interpretation was performed. Left Enlarged LV size with low normal LV systolic function. Ventricle Left Atrium LA size is enlarged . No evidence of left atrial or left atrial appendage thrombus. Right Enlarged RV with mild to moderately reduced RV systolic Ventricle function. Right Atrium RA size is dilated. Atrial A patent foramen ovale (PFO) is demonstrated by color Doppler Septum with continuous left to right shunting. Aortic Valve Normal tri-leaflet Aortic Valve. Moderate AoV cusp thickening. Mkkefymz-jq-djbqcs AoV cusp calcification. Severe aortic valve stenosis. AoV resting dimensionless obstructive index (DOI) - 0.27. AoV area by 3D planimtery is in the range of 0.93 cm2. AoV area at rest by continuity equation is in the range of 0.94 cm2 ( 0.47 cm2/BSA). Mitral Valve Idlu-ct-tdhsuuqw MV leaflet thickening and calcification. Mild mitral annular calcification. Moderate central mitral regurgitation. Tricuspid Mild tricuspid regurgitation. Valve Estimated peak systolic PA pressure is 40-45 mmHg + RA pressure. (RA pressure indeterminate on this exam) Pulmonic Normal PV structure appears normal by available views. Valve Aorta Aortic root size (SInus of Valsalva diameter) is normal . Pericardium No significant pericardial effusion is visualized. Chambers/Structures Left Ventricle LVOT Diameter: 2.1 cm Doppler/Quantitative Measurements Aortic Valve Peak Velocity: 3.64 m/s Mean Velocity: 2.65 m/s Peak Gradient: 53 mmHg Mean Gradient: 32 mmHg AV Area (continuity): 0.94 cm^2 AV VTI: 90.4 cm AV DVI: 0.27 LVOT Peak Velocity: 0.97 m/s Peak Gradient: 4 mmHg Mean Velocity: 0.69 m/s Mean Gradient: 2 mmHg LVOT Diameter: 2.1 cm LVOT VTI: 24.5 cm LVOT Area: 3.46 cm^2 LVOT SV:84.82 ml LVOT CO: 4.92 l/min LVOT CI: 2.46 l/min/m^2 Performing Organization Address [facility] one Number [facility] ECHO HEARTLAB MKCKESSON CPACS * Blood culture (12/22/2019 4:50 AM CDT) Only the most recent of 6 results within the time period is included. Result No growth in 5 days [facility] Specimen Blood Performing Organization Address [facility] one [place] [phone] [place] [address] * Occult blood, stool (12/21/2019 3:56 PM CDT) Occult blood Negative Negative [facility] Specimen Stool - Feces (substance) Performing Organization Address [facility] one [place] [address] [phone] [place] [address] * Iron, TIBC, % sat. (without ferritin) (12/21/2019 2:10 PM CDT) Iron 19.0 (L) 40.0 - 160.0 ug/dL [facility] TIBC 170 (L) 250 - 450 ug/dL [facility] Iron % 11 (L) 20 - 55 % [facility] Specimen Blood Narrative Performed At Concrete Floor Installer ID - BS [facility] Performing Organization Address [facility] one [place] [address] [phone] [place] [address] * Ferritin (12/21/2019 2:10 PM CDT) Ferritin 431.90 (H) 5.00 - 275.00 ng/mL [facility] Specimen Blood Narrative Performed At Concrete Floor Installer ID - BS [facility] Performing Organization Address City/[facility]/Zipcode Ph one Number [place] [address] [facility] * Urinalysis w/Microscopic + Reflex to Culture (12/21/2019 8:54 AM CDT) Only the most recent of 2 results within the time period is included. Color, UA Light Yellow [facility] Clarity, UA Clear [facility] Specific 1.008 1.001 - 1.035 [facility] pH, UA 7.0 5.0 - 8.0 [facility] Protein, UA Negative Negative [facility] Glucose, UA Negative Negative [facility] Ketones, UA Negative Negative [facility] Bilirubin, UA Negative Negative [facility] Blood, UA Negative Negative [facility] Nitrite, UA Negative Negative [facility] Leukocytes, UA Negative Negative [facility] Urobilinogen, 0.2 0.2 - 1.0 mg/dL [facility] RBC, UA 1 /HPF [facility] WBC, UA 1 /HPF [facility] Squam Epithel, <1 /HPF [facility] Specimen Source [facility] Specimen Urine - Urine (substance) Narrative Performed At Concrete Floor Installer ID - [auto] [facility] Concrete Floor Installer ID - [facility] Performing Organization Address City/[facility]/Zipcode Ph one Number [place] [address] [facility] * TSH/Free T4 If Indicated (12/20/2019 4:26 AM CDT) TSH 0.807 0.350 - 4.940 uIU/mL [facility] Specimen Blood Narrative Performed At Concrete Floor Installer ID - LULU Interiano [facility] Performing Organization Address [facility] Ph one Number [facility] [address] [place] [address] [address] [facility] * C-Reactive Protein (12/20/2019 4:26 AM CDT) CRP 14.80 (H) 0.00 - 0.50 mg/dL [facility] Specimen Blood Narrative Performed At Concrete Floor Installer ID - PIJUDY L [facility] Performing Organization Address [facility] Ph one Number [place] [address] [facility] * Blood Culture Panel(BioFire) (12/19/2019 6:33 PM CDT) LISTERIA Not detected Not detected [facility] MONOCYTOGENES [facility] STAPHYLOCOCCUS Detected (A) Not detected [facility] STAPHYLOCOCCUS Detected (A) Not detected [facility] AUREUS Comment: [facility] Methicillin-resistant S. [facility] aureus (MRSA) First-line therapy: Vancomycin ID CONSULTATION REQUIRED. Staphylococcus aureus DETECTED MecA DETECTED Reference Range: Not Detected Streptococcus Not detected Not detected [facility] STREPTOCOCCUS Not detected Not detected [facility] AGALACTIAE [facility] (GROUP B) [facility] STREPTOCOCCUS Not detected Not detected [facility] PNEUMONIAE [facility] Streptococcus Not detected Not detected [facility] pyogenes (Group [facility] A) [facility] ACINETOBACTER Not detected Not detected [facility] BAUMANNII [facility] HAEMOPHILUS Not detected Not detected [facility] INFLUENZAE [facility] NEISSERIA Not detected Not detected [facility] MENINGITIDIS [facility] ENTEROBACTERIAC Not detected Not detected [facility] EAE [facility] ENTEROBACTER Not detected Not detected [facility] CLOACOE COMPLEX [facility] KLEBSIELLA Not detected Not detected [facility] OXYTOCA [facility] KLEBSIELLA Not detected Not detected [facility] PNEUMONIAE [facility] PROTEUS Not detected Not detected [facility] SERRATIA Not detected Not detected [facility] MARCESCENS [facility] DEANNA Not detected Not detected [facility] ALBICANS [facility] DEANNA Not detected Not detected [facility] GLABRATA [facility] KRUSEI Not detected Not detected [facility] DEANNA Not detected Not detected [facility] PARAPSILOSIS [facility] Not detected Not detected [facility] TROPICALIS [facility] ESCHERICHIA Not detected Not detected [facility] COLI [facility] METHICILLIN-RES Detected (A) Not detected [facility] ISTANCE GENE [facility] VANCOMYCIN-RESI [facility] STANCE [facility] CARBAPENEM-RESI [facility] STANCE [facility] ENTEROCOCCUS Not detected Not detected [facility] PSEUDOMONAS Not detected Not detected [facility] AERUGINOSA [facility] Specimen Blood - Entire right upper arm (body structure) Narrative Performed At Other bacteria and resistance markers not targeted by this PCR panel cannot be [facility] excluded; therefore clinical correlation and follow u p of serology, culture [facility] results, and other molecular studies is required. The results are not intended to be used as the sole means for clinic al diagnosis or patient management decisions. This sample was tested at th e [facility] Molecular Diagnostics Laboratory using the Couple Blood Cultu re ID Panel. It is FDA cleared and has been verified and approved by the [facility] Molecular Diagnostics Laboratory for clinical use. This laboratory is CLIA-c ertified and [employer] (CAP)-accredited to [facility] m high complexity testing. Performing Organization Address City/State/Zipcode Ph one Number [facility] [address] [place], [place] [address] MEDICAL [facility]ENTER * Hemoglobin A1c (12/18/2019 4:29 AM CDT) Hemoglobin A1C 5.3 4.3 - 6.1 % [facility] Specimen Blood Performing Organization Address City/State/Zipcode Ph one Number [facility] [address] [place] [phone] MEDICAL CENTER * XR ribs with pa chest 3 views min right (12/17/2019 3:27 PM CDT) Specimen Narrative Performed At FINAL REPORT GE RIS TECHNIQUE: Minimum three views of the r ight ribs with PA chest. INDICATION: right sided chest pain. COMPARISON: Chest CT from 12/16/2019. FINDINGS: A left chest defibrillator has a lead o gracia the sternum. Prior median sternotomy. Prior CABG. There is a left retrocardiac opacity wh ich is most likely accommodation of the atelectasis and lo culated effusion seen on yesterday's chest CT. There is a questi onable irregularity of the right anterior eighth rib. On the chest radiograph from yesterday, this appeared more likely to be a chron ic fracture given some underlying sclerosis. Leftward convex curvature of the lumbar spine. Moderate degenerative disc changes of the visualized spine. IMPRESSION: The mild irregularity of the right ante rior eighth rib has some sclerosis on the prior chest CT and is favored to be an old, healed rib fracture. Please correlate for poin t tenderness in this location to exclude an acute fracture. The left retrocardiac opacity is likely a combination of atelectasis and the previously seen loculated left major fissure effusion. Signed: Troy Mock MD Report Verified Date/Time: 12/17/2019 15:59:38 Reading Location: [address] Body Reading Room Procedure Note Interface, External Ris In - 12/17/2019 4:01 PM CDT FINAL REPORT TECHNIQUE: Minimum three views of the right ribs with PA chest. INDICATION: right sided chest pain. COMPARISON: Chest CT from 12/16/2019. FINDINGS: A left chest defibrillator has a lead over the sternum. Prior median sternotomy. Prior CABG. There is a left retrocardiac opacity which is most likely accommodation of the atelectasis and loculated effusion seen on yesterday's chest CT. There is a questionable irregularity of the right anterior eighth rib. On the chest radiograph from yesterday, this appeared more likely to be a chronic fracture given some underlying sclerosis. Leftward convex curvature of the lumbar spine. Moderate degenerative disc changes of the visualized spine. IMPRESSION: The mild irregularity of the right anterior eighth rib has some sclerosis on the prior chest CT and is favored to be an old, healed rib fracture. Please correlate for point tenderness in this location to exclude an acute fracture. The left retrocardiac opacity is likely a combination of atelectasis and the previously seen loculated left major fissure effusion. Signed: Troy Mokc MD Report Verified Date/Time: 12/17/2019 15:59:38 Reading Location: [facility] B1 C013Y CT Body Reading Room Performing Organization Address City/State/Zipcode Ph one Number [employer] RIS * NM lung perfusion scan (12/16/2019 5:49 PM CDT) Specimen Narrative Performed At FINAL REPORT [facility] [place] PROCEDURE: LUNG SCAN - perfusion only CPT CODE: 27853 INDICATION: right chest pain PROTOCOL: 2.1 mCi of Tc-99m MAA was injected intravenously, and static perfusion images were obtained i n multiple projections. Ventilation imaging was not performed d ue to COVID precautions. FINDINGS: Tracer distributi on is nonsegmentally, moderately irregular in both lungs. There is promi nence of the left oblique fissure. IMPRESSION: 1. Low probability of acute pulmonary e mbolization. 2. Bilateral parenchymal abnormality an d additional left pleural abnormality. Signed: Mitch Neal MD Report Verified Date/Time: 12/16/2019 18:00:45 Procedure Note Interface, External Ris In - 12/16/2019 6:02 PM CDT FINAL REPORT PROCEDURE: LUNG SCAN - perfusion only CPT CODE: 96949 INDICATION: right chest pain PROTOCOL: 2.1 mCi of Tc-99m MAA was injected intravenously, and static perfusion images were obtained in multiple projections. Ventilation imaging was not performed due to COVID precautions. FINDINGS: Tracer distribution is nonsegmentally, moderately irregular in both lungs. There is prominence of the left oblique fissure. IMPRESSION: 1. Low probability of acute pulmonary em bolization. 2. Bilateral parenchymal abnormality and additional left pleural abnormality. Signed: Mitch Neal MD Report Verified Date/Time: 12/16/2019 18:00:45 Performing Organization Address [facility] one Number GE RIS * Troponin I (12/16/2019 1:04 PM CDT) Only the most recent of 2 results within the time period is included. Troponin I 0.03 0.00 - 0.03 ng/mL [facility] Specimen Blood Narrative Performed At Troponin I (TnI) levels must be interpreted in the co ntext of the presenting [facility] symptoms and the clinical findings. Elevated TnI leve ls indicate myocardial [facility] damage, but are not specific for ischem ic heart disease. Elevated TnI levels are seen in patients with other cardiac con ditions (including myocarditis and congestive heart failure), and slight T nI elevations occur in patients with other conditions, including sepsis, lacy al failure, acidosis, acute neurological disease, and persistent tachyarrhythmia . Concrete Floor Installer ID - ANNMARIE Lara Performing Organization Address [facility] one Number [place] [address] MEDICAL CENTER * 2D Echo W/Doppler(CW/PW/Color) (12/16/2019 11:30 AM CDT) Ejection [facility] ECHO Fraction HEARTLAB [facility] Specimen Narrative Performed At Transthoracic Echocardiography Report (TTE) [facility] ECH O HEARTLAB Demographics [facility] Patient Name DUKE HANNAH te of Study 12/16/2019 THEOSOR Gender Female Visit Number [id number] Race Unknown Room Number 1154 Number Date of 1945 Referring Physician JAQUAN SANTIAGO Age 74 year(s) Reuse Technician Ninfa Flores [facility] Sql Server Developer Juvencio Reid Interpreting Alphonso Velazquez Physician Procedure Type of Study TTE procedure:2DECHO W DOPP LER(CW/PW/COLOR) (STAT) Indications:Acute Chest Pain/ Suspected CAD. Clinical History CKD;DM;HTN;ICMP;BYPASS 2014;PERICARDIAL WINDOW 2014;BALLOON PUMP 2014. Height: 70 inches Weight: 81.65 kg (180 lbs) BSA: 2 m^2 BMI: 25.83 kg/m^2 HR: 67 bpm BP: 153/71 mmHg Summary The left ventricle is chamber size (by PSLAX dimension) is moderately enlarged (female - LVIDd 5.7-6.1cm) . S eptal motion is abnormal, likely related to prior cardiac surgery . Lucrecia mated LVEF by qualitative assessment is normal (55-60%) . Degree of diastolic dysfunction (LAP as sessment) is inconclusive due to arrhythmia . Moderate aortic stenosis. AoV area at r est by continuity equation is in the range of 1.1 cm2. AoV resting Mean [id number].. [id number] tricuspid regurgitatio n. Estimated peak systolic PA pressure is 45-50 mmHg (mild pulmonary hypertension) . Previous Study In comparison with the prior exam the following changes are noted: is new, . Signature Findings Rhythm/BP Irregular rhythm during the exam. Left Ventricle The left kenisha tricle is chamber size (by PSLAX dime nsion) is moderately enlarged (female - LVIDd 5.7- 6.1cm) . Norm al LV wall thickness. Sept al motion is abnormal, likely related to prior card iac surgery . Glob al LV systolic function normal . Lucrecia mated LVEF by qualitative assessment is normal (55- 60%) . Degr ee of diastolic dysfunction (LAP assessment) is inco nclusive due to arrhythmia . Left Atrium LA size is severely enlarged (>48 ml/m2) . Right Ventricle RV chamber s ize is moderately enlarged . Glob al RV systolic function is mildly reduced . Right Atrium RA cavity s ize is mildly enlarged . Atrial Septum A patent fo ramen ovale (PFO) is suspected by color Dopp ler. Aortic Valve Moderate Ao V cusp calcification. Mode rate aortic stenosis. AoV area at rest by continuity equation is in the rang e of 1.1 cm2. AoV resting Mean [id number].. Mitral Valve Mild MV warren flet thickening. Mild mitral regurgitation. Mild mitral annular calcification. Tricuspid Valve Dupp-gl-qmpj rate tricuspid regurgitation. Lucrecia mated peak systolic PA pressure is 45-50 mmHg (mil d pulmonary hypertension) . Pulmonic Valve Normal PV st ructure and function by limited views and Doppler. Aorta Aortic root size (SInus of Valsalva diameter) is norm al . Proximal ascending aorta size mildly dila patel . 3.6 cm Pericardium No signifi cant pericardial effusion is visualized. IVC/SVC/PA/PV/Pleural The estimated R A pressure by IVC dynamics 11-15mmHg . Chambers/Structures Left Atrium LA Volume: 130.88 ml LA Area: 33.87 cm^2 LA Vol. Index: 65 ml/m^2 Left Ventricle LVIDd: 5.85 cm LV Septum Diastolic: 0.83 cm LV PW Diastolic: 1 cm LVOT Diameter: 1.95 cm Right Atrium RA Vol. (Sngl Plane): 68.41 ml Right Ventricle TAPSE: 1. 5 cm Aorta Ao Root S of Jeannie.: 1.42 cm Ascending Aorta: 3.64 cm Doppler/Quantitative Measurements Aortic Valve Peak Velocity: 3.45 m/s Mean Velocity: 2.49 m/s Peak Gradient: 47.71 mmHg Mean Gradient: 28.33 mmHg AV Area (continuity): 1.07 cm^2 AV VTI: 89.77 cm AV DVI: 0.36 LVOT Peak Velocity: 1.27 m/s Peak Gradient: 6.46 mmHg Mean Velocity: 0.96 m/s Mean Gradient: 4.14 mmHg LVOT Diameter: 1.95 cm LVOT VTI: 32.22 cm LVOT Area: 2.99 cm^2 LVOT SV:96.18 ml LVOT CO: 6.44 l/min LVOT CI: 3.22 l/min/m^2 Tricuspid Valve TR Velocity: 3.03 m/s TR Gradient: 36.69 mmHg Procedure Note Interface, External Ris In - 12/16/2019 2:47 PM CDT Transthoracic Echocardiography Report (TTE) Demographics Patient Name DUKE HANNAH Date of Study 12/16/2019 ANGELO Gender Female Visit Number [id number] Race Unknown Room Number 1154 Number Date of 1945 Referring Physician JAQUAN SANTIAGO Age 74 year(s) Reuse Technician Ninfa Radhasandrita [facility] Sql Server Developer Juvencio Reid Interpreting Physician CLAUDIA Whitley Procedure Type of Study TTE procedure:2DECHO W DOPPLER(CW/PW/COLOR) (STAT) Indications:Acute Chest Pain/ Suspected CAD. Clinical History CKD;DM;HTN;ICMP;BYPASS 2014;PERICARDIAL WINDOW 2014;BALLOON PUMP 2014. Height: 70 inches Weight: 81.65 kg (180 lbs) BSA: 2 m^2 BMI: 25.83 kg/m^2 HR: 67 bpm BP: 153/71 mmHg Summary The left ventricle is chamber size (by PSLAX dimension) is moderately enlarged (female - LVIDd 5.7-6.1cm) . Septal motion is abnormal, likely related to prior cardiac surgery . Estimated LVEF by qualitative assessment is normal (55-60%) . Degree of diastolic dysfunction (LAP assessment) is inconclusive due to arrhythmia . Moderate aortic stenosis. AoV area at rest by continuity equation is in the range of 1.1 cm2. AoV resting Mean [id number].. [id number]-[id number] tricuspid regurgitation. Estimated peak systolic PA pressure is 45-50 mmHg (mild pulmonary hypertension) . Previous Study In comparison with the prior exam 9-17-15 the following changes are noted: is new, . Signature Findings Rhythm/BP Irregular rhythm during the exam. Left Ventricle The left ventricle is chamber size (by PSLAX dimension) is moderately enlarged (female - LVIDd 5.7-6.1cm) . Normal LV wall thickness. Septal motion is abnormal, likely related to prior cardiac surgery . Global LV systolic function normal . Estimated LVEF by qualitative assessment is normal (55-60%) . Degree of diastolic dysfunction (LAP assessment) is inconclusive due to arrhythmia . Left Atrium LA size is severely enlarged (>48 ml/m2) . Right Ventricle RV chamber size is moderately enlarged . Global RV systolic function is mildly reduced . Right Atrium RA cavity size is mildly enlarged . Atrial Septum A patent foramen ovale (PFO) is suspected by color Doppler. Aortic Valve Moderate AoV cusp calcification. Moderate aortic stenosis. AoV area at rest by continuity equation is in the range of 1.1 cm2. AoV resting Mean [id number].. Mitral Valve Mild MV leaflet thickening. Mild mitral regurgitation. Mild mitral annular calcification. Tricuspid Valve Hnvs-rl-biwehkjm tricuspid regurgitation. Estimated peak systolic PA pressure is 45-50 mmHg (mild pulmonary hypertension) . Pulmonic Valve Normal PV structure and function by limited views and Doppler. Aorta Aortic root size (SInus of Valsalva diameter) is normal . Proximal ascending aorta size mildly dilated . 3.6 cm Pericardium No significant pericardial effusion is visualized. IVC/SVC/PA/PV/Pleural The estimated RA pressure by IVC dynamics 11-15mmHg . Chambers/Structures Left Atrium LA Volume: 130.88 ml LA Area: 33.87 cm^2 LA Vol. Index: 65 ml/m^2 Left Ventricle LVIDd: 5.85 cm LV Septum Diastolic: 0.83 cm LV PW Diastolic: 1 cm LVOT Diameter: 1.95 cm Right Atrium RA Vol. (Sngl Plane): 68.41 ml Right Ventricle TAPSE: 1.5 cm Aorta Ao Root S of Jeannie.: 1.42 cm Ascending Aorta: 3.64 cm Doppler/Quantitative Measurements Aortic Valve Peak Velocity: 3.45 m/s Mean Velocity: 2.49 m/s Peak Gradient: 47.71 mmHg Mean Gradient: 28.33 mmHg AV Area (continuity): 1.07 cm^2 AV VTI: 89.77 cm AV DVI: 0.36 LVOT Peak Velocity: 1.27 m/s Peak Gradient: 6.46 mmHg Mean Velocity: 0.96 m/s Mean Gradient: 4.14 mmHg LVOT Diameter: 1.95 cm LVOT VTI: 32.22 cm LVOT Area: 2.99 cm^2 LVOT SV:96.18 ml LVOT CO: 6.44 l/min LVOT CI: 3.22 l/min/m^2 Tricuspid Valve TR Velocity: 3.03 m/s TR Gradient: 36.69 mmHg Performing Organization Address City/State/Zipcode Ph one Number [facility]ON CPACS * CT chest without IV contrast (12/16/2019 9:52 AM CDT) Specimen Narrative Performed At Addendum Begins [employer] RIS REPORT STATUS:A There is mild irregularity and sclerosi s of the right anterior eighth rib. This is likely due to an old, heal ed fracture. Signed: Troy Mock MD Report Verified Date/Time: 12/17/2019 16:00:27 Reading Location: [facility] C013Y CT Body Reading Room Addendum Ends FINAL REPORT TECHNIQUE: CT scan of the chest WITHOUT intravenous contrast. Dose modulation, iterative reconstruction, a nd/or weight-based adjustment of the mA/kV was utilized to reduce the radiation dose to as low as reasonably achievable. INDICATION: sob. COMPARISON: None. FINDINGS: ABSENCE OF INTRAVENOUS CONTRAST DECREAS ES SENSITIVITY FOR DETECTION OF FOCAL LESIONS AND VASCULAR PATHOLOGY . LINES/TUBES: None. LUNGS AND AIRWAYS: A left upper lobe ca lcified granuloma measures 0.4 cm. Mild bibasilar subsegmental atelect asis. A right middle lobe pulmonary nodule measures 0.4 cm on axi al image 35 there is minimal, scattered air trapping. Pulmonary venous congestion. PLEURA: Small, loculated effusion along the left major fissure. HEART AND MEDIASTINUM: The visualized t hyroid gland is normal. No significant mediastinal, hilar, or axil rosendo lymphadenopathy. The left atrium is enlarged. Mild calcification of the aortic arch and descending thoracic aorta. Marked calci fication of the coronary arteries. Prior CABG The fluid and the heart is low-density myocardium, consistent with anemia. SOFT TISSUES AND BONES: A device overli es the left lateral chest. Prior median sternotomy. The sternotomy is unhealed. Moderate degenerative disc changes of the visual ized spine. UPPER ABDOMEN: Calcification of the sma ll vessels of the abdomen. Moderate calcification of the abdominal aorta. IMPRESSION: 1.Pulmonary venous congestion. 2.There is a small, loculated effusion along the left major fissure. 3.A right middle lobe pulmonary nodule measures 0.4 cm. If the patient is at increased risk for lung c ancer, an optional follow-up chest CT can be obtained in 12 months. Otherwise, no CT follow-up is necessary. Signed: Troy Mock MD Report Verified Date/Time: 12/16/2019 10:18:14 Reading Location: [facility] C013Y CT Body Reading Room Procedure Note Interface, External Ris In - 12/17/2019 4:02 PM CDT Addendum Begins REPORT STATUS:A There is mild irregularity and sclerosis of the right anterior eighth rib. This is likely due to an old, healed fracture. Signed: Troy Mock MD Report Verified Date/Time: 12/17/2019 16:00:27 Reading Location: [facility] B1 C013Y CT Body Reading Room Addendum Ends FINAL REPORT TECHNIQUE: CT scan of the chest WITHOUT intravenous contrast. Dose modulation, iterative reconstruction, and/or weight-based adjustment of the mA/kV was utilized to reduce the radiation dose to as low as reasonably achievable. INDICATION: sob. COMPARISON: None. FINDINGS: ABSENCE OF INTRAVENOUS CONTRAST DECREASES SENSITIVITY FOR DETECTION OF FOCAL LESIONS AND VASCULAR PATHOLOGY. LINES/TUBES: None. LUNGS AND AIRWAYS: A left upper lobe calcified granuloma measures 0.4 cm. Mild bibasilar subsegmental atelectasis. A right middle lobe pulmonary nodule measures 0.4 cm on axial image 35 there is minimal, scattered air trapping. Pulmonary venous congestion. PLEURA: Small, loculated effusion along the left major fissure. HEART AND MEDIASTINUM: The visualized thyroid gland is normal. No significant mediastinal, hilar, or axillary lymphadenopathy. The left atrium is enlarged. Mild calcification of the aortic arch and descending thoracic aorta. Marked calcification of the coronary arteries. Prior CABG The fluid and the heart is low-density myocardium, consistent with anemia. SOFT TISSUES AND BONES: A device overlies the left lateral chest. Prior median sternotomy. The sternotomy is unhealed. Moderate degenerative disc changes of the visualized spine. UPPER ABDOMEN: Calcification of the small vessels of the abdomen. Moderate calcification of the abdominal aorta. IMPRESSION: 1.Pulmonary venous congestion. 2.There is a small, loculated effusion a long the left major fissure. 3.A right middle lobe pulmonary nodule m easures 0.4 cm. If the patient is at increased risk for lung cancer, an optional follow-up chest CT can be obtained in 12 months. Otherwise, no CT follow-up is necessary. Signed: Troy Mock MD Report Verified Date/Time: 12/16/2019 10:18:14 Reading Location: [facility] B1 C013Y CT Body Reading Room Performing Organization Address City/State/Zipcode Ph one Number GE RIS after 04/02/2019 Insurance Type Payer Benefit Subscriber ID Effective Phone Address Plan / Dates Group [facility] [id number] 2019-P MEDICARE MGD CARE MEDICARE resent HMO CDC REVIEW CDC REVIEW [id number] 2019-[place] [address] Advance Directives For more information, please contact: [phone] Date Inactivated Comments Code Status Date Activated 01/12/2020 4:01 PM Full Code 12/22/2019 11:19 AM This code status was determined by: Patient 12/22/2019 11:19 AM Full Code 12/16/2019 6:06 AM This code status was determined by: Patient 03/13/2015 5:10 PM Full Code 02/01/2015 4:23 PM This code status was determined by: 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
--- OUTSIDE RECORDS SUMMARY | 2020-04-02 15:04 | XMS REPORT | Continuity of Care Document ---
Author Author [facility] t Organization [facility] Address [address] [place] [id number] Phone Unavailable Care Team Providers Care Collector Name Role Phone DO TACOS WHITAKER DO PCP MOREIRA, SOUHEIL Attphys Unavailable Lexi TAYLOR, Koffi Bartlett Attphys [phone] CURTIS FERNANDEZ Attphys Unavailable Brown TAYLOR, Curtis Attphys Patsy TAYLOR, Lydia Cruz Attphys Ab TAYLOR, Rc Attphys Muna TAYLOR, Mindy Attphys Gardenia TAYLOR, Read Lindsay Attphys Unavailable Karen TAYLOR, Rigo Rivera Attphys Padmaja Johnson DO Attphys Kailyn TAYLOR, Thomas Burt Attphys Amilcar Freeman Attphys Unavailable Larisa ARCINIEGA Attphys Unavailable Lesa MILLER Attphys Unavailable BALDOMERO WELSH Attphys Unavailable MOREIRA, SOUHEIL Admphys Unavailable CURTIS FERNANDEZ Unavailable Payers Payer Name Policy Type Policy Number Effective Date Expiration Date Larisa batres [facility] [id number] 2019 00:00:00 [facility] - MEDICARE MGD ROMELIA HUFFMAN MEDICARE [id number] 2019-Present [id number] 2019 00:00:00 [facility] CDC REVIEWCDC [id number] Shakeel MCKEON [id number] 2019 00:00:00 [facility] Problems Condition Name Condition Details Condition Category Status Onset Date Resolution Date Last Treatment Date Treating Clinician Comments Source Coronary artery disease involving wiyot coronary artery of wiyot heart without angina pectoris Coronary artery disease involving wiyot coronary artery of wiyot heart without angina pectoris Disease Active 2019-12-17 00:00:00 [facility] Chest pain Chest pain Disease Active 2019-12-16 00:00:00 [facility] Anemia Anemia Problem Active 2015-11-13 00:00:00 [facility] CHF (congestive heart failure) CHF (congestive heart failure) Probl em Active 2015-11-13 00:00:00 [facility] Hypothyroid Hypothyroid Problem Active 2015-11-13 00:00:00 [facility] [id number] renal failure Renal failure (ARF), acute on chr onic Problem Active 2015-11-13 00:00:00 [facility] Urinary tract infection UTI (urinary tract infection) Problem Active 2015-11-13 00:00:00 [facility] Chronic renal impairment CRI (chronic renal insufficiency) Problem Active 2015-07-27 00:00:00 [facility] Urinary tract infection UTI (urinary tract infection) Problem Active 2015-07-27 00:00:00 [facility] Weakness Weakness Problem Active 2015-07-27 00:00:00 [facility] Altered mental status Altered mental status Problem Active 201 11-12-05 00:00:00 [facility] Ventricular tachycardia V-tach Problem Active 2015-06-19 00:00:00 [facility] TED (acute kidney injury) TED (acute kidney injury) Disease Ac tive 2015-01-30 00:00:00 [facility] Back pain Back pain Disease Active 2015-01-27 00:00:00 [facility] NSTEMI (non-ST elevated myocardial infarction) NSTEMI (non-ST elevated myocardial infarction) Disease Active 2015-01-27 00:00:00 [facility] Acute myocardial infarction AMI (acute myocardial infarction) Probl em Active 2015-01-26 00:00:00 [facility] Congestive heart failure CHF exacerbation Problem Active 00:00:00 [facility] Diabetes mellitus affecting Diabetes mellitus affe cting Problem Active 2015-01-26 00:00:00 [facility] Abdominal pain Abdominal pain Problem Active [facility] Postoperative pain Post-operative pain Problem Active [facility] Vomiting Vomiting Problem Active [facility] Acute on chronic congestive heart failure Problem Active [facility] Hypertension Hypertension Disease Active [facility] Diabetes mellitus Diabetes mellitus Disease Active [facility] Ischemic cardiomyopathy Ischemic cardiomyopathy Disease Active Overview: EF 24% [facility] CKD (chronic kidney disease) CKD (chronic kidney disease) Disease Active Overview: Creatinine on admission =1.48 [facility] Allergies, Adverse Reactions, Alerts Allergy Name Allergy Type Status Severity Reaction(s) Onset Date Inacti ve Date Treating Clinician Comments Source Levofloxacin Allergy to substance Active REACTION RESE MBLES A STROKE 2018-03-08 00:00:00 [facility] Levofloxacin Propensity to adverse reactions to drug Active 2016-12-28 00:00:00 Wilman mccollum No Known Allergies DA Active U 2016-02-02 00:00:00 [facility] Levofloxacin Propensity to adverse reactions Active 201 10-20-15 00:00:00 Other reaction(s): REACTION RESEMBLES A STROKE [facility] Family History Family Member Diagnosis Comments Start Date Stop Date Source 33 FATHER Family history of cardiac disorder [facility] 32 MOTHER Family history of cardiac disorder [facility] 09 BROTHER Family history of cardiac disorder [facility] 19 SON Family history of hypertension [facility] Natural father Heart attack [employer] [facility] Natural father Heart disease [facility] Natural mother Heart attack [facility] Natural mother Heart disease [facility] Natural brother Heart disease [facility] Natural sister Heart disease [facility] Social History Social Habit Start Date Stop Date Quantity Comments Source Sex Assigned At [facility] Tobacco use and exposure 2020-03-13 00:00:00 2020-03-13 00:00:00 Lukas parsons used [facility] Alcohol intake 2020-03-13 00:00:00 2020-03-13 00:00:00 Current non-drinker of alcohol (finding) [facility] Smoking Status Start Date Stop Date Source Never smoker [facility] Medications Ordered Medication Name Filled Medication Name Start Date Stop Da te Current Medication? Ordering Clinician Indication Dosage Frequency Signature (SIG) Comments Components Source diclofenac 1 % Gel 2020-01-12 14:01:26 Yes osteoa rthritis of the knee Apply topically 4 (four) times daily as needed. [facility] atorvastatin (LIPITOR) 20 MG tablet 2020-01-12 14:01:26 Yes mixed hyperlipidemia 20mg QD Take 20 mg by mouth daily. [facility] amLODIPine (NORVASC) 5 MG tablet 2020-01-12 14:01:26 Yes hypertension 5mg QD Take 5 mg by mouth daily. [facility] FLUoxetine (PROZAC) 20 mg/5 mL (4 mg/mL) solution 2020-01-12 14:01:26 Yes 20mg QD Take 20 mg by mouth daily. [facility] gabapentin (NEURONTIN) 300 MG capsule 2020-01-12 14:01:26 Yes 300mg Q.[id number] Take 300 mg by mouth 3 (three) times daily. [facility] HYDROcodone-acetaminophen (NORCO 10-325) 10-325 mg per table t 2020-01-12 14:01:26 Yes 1{tbl} Take 1 tab let by mouth every 8 (eight) hours as needed for Pain. [facility] insulin lispro (HUMALOG) 100 unit/mL injection 2020-01-12 14:01: 26 Yes Inject subcutaneously 3 (three) times daily as n eeded for High Blood Sugar. [facility] bisacodyL (DULCOLAX) 5 mg EC tablet 2020-01-12 14:01:26 Yes 5mg Take 5 mg by mouth daily as needed for Constipation. [facility] zinc gluconate 50 mg tablet 2020-01-12 14:01: Yes 50mg QD Take 50 mg by mouth daily. [facility] niacin 500 MG tablet 2020-01-12 14:01:26 Yes 500mg Take 500 mg by mouth daily with breakfast. [facility] aspirin 81 MG EC tablet 2020-01-12 14:01: Yes 81mg QD Take 81 mg by mouth daily. [facility] calcium carbonate-vitamin D3 (CALCIUM- TAMIN D) 500 mg(1,250mg) -200 unit per tablet 2020-01-12 14:01:26 Yes prevention of vitami n D deficiency 1{tbl} Take 1 tablet by mouth 2 (two) times daily with breakfast and di nner. [facility] magnesium oxide (MAG-OX) 400 mg (241.3 mg magnesium) tablet 2020-01-12 14:01:26 Yes hypomagnesemia 400mg QD Take 400 mg by mouth daily. [facility] ascorbic acid, vitamin C, (VITAMIN C) 1000 MG tablet 2 14:01:26 Yes vitamin C deficiency 1000mg QD Take 1,000 mg by mouth talisha chery [facility] insulin detemir U-100 (LEVEMIR) 100 unit/mL (3 mL) InPn inje ction 2020-01-12 14:01:26 Yes type 2 diabetes mellitus QD Inject subcutaneously nightly. [facility] vancomycin (VANCOCIN) 500MG IV in NS 100 ML MBP 2020-01-12 00:00 :00 Yes 500mg Q24H Inject 500 mg intravenously daily. [facility] metoprolol succinate (TOPROL-XL) 25 MG 24 hr tablet 2020-01-12 00:00:00 2021-01-11 23:59:00 Yes 25mg QD Take 1 tab let (25 mg total) by mouth daily. [facility] metoprolol tartrate (LOPRESSOR) 25 MG tablet 10:28:47 2019-12-29 00:00:00 No myocardial reinfarction prevention 25mg Q .5D Take 25 mg by mouth 2 (two) times daily. [facility] cloNIDine HCL (CATAPRES) 0.2 MG tablet 2019-12-14 7 10:28:47 2019-12-29 00:00:00 No hypertension .2mg Q.5D Take 0.2 mg by mouth 2 (two ) times daily. [facility] bumetanide (BUMEX) 2 MG tablet 2020-01-08 10:28:47 2019-12-13 7 00:00:00 No hypertension 2mg Q.5D Take 2 mg by mouth 2 (two) times daily. [facility] vancomycin (VANCOCIN) MBP 750 mg in NS 100 mL 31-12-17 00:00:00 2020-01-11 00:00:00 No 750mg Q24H Inject 750 mg intravenously martha ly. [facility] metoprolol succinate (TOPROL-XL) 25 MG 24 hr tablet 2019-12-30 00:00:00 2019-12-30 00:00:00 No 12.5mg QD Take 0.5 tablets (12.5 mg total) by mouth daily. [facility] apixaban (ELIQUIS) 2.5 mg Tab tablet 2019-12-29 00:00:00 Ye s 5mg Q.5D Take 2 tablets (5 mg total) by mouth 2 (two) times daily. [facility] bumetanide (BUMEX) 2 MG tablet 2019-12-29 00:00:00 Yes hypertension 2mg QD Take 1 tablet (2 mg total) by mouth daily. [facility] HYDROmorphone (DILAUDID) 2 MG tablet 2019-12-29 00:00: 00 2020-01-08 23:59:00 No 2mg Take 1 tablet ( 2 mg total) by mouth every 6 (six) hours as needed for up to 10 days. Max Daily Amount: 8 mg [facility] vancomycin (VANCOCIN) 1000 mg IV in NS 100 ML MBP 2019-12-29 00:00:00 2019-12-30 00:00:00 No 1000mg Q24H Inject 1,000 mg intr avenously daily. [facility] traMADol (ULTRAM) 50 mg tablet 2016-12-28 10:26:53 Yes 50mg Q6H Take 50 mg by mouth every 6 (six) hours as needed for moderate pain. Wilman Vanessa acetaminophen (TYLENOL) 325 MG tablet 2016-12-28 10:26:53 Y es 325mg Q6H Take 325 mg by mouth every 6 (six) hours as needed for fever. Wilman Vanessa cyclobenzaprine (FLEXERIL) 5 mg tablet 2016-12-28 10:26:53 Yes 5mg Q.[id number] Take 5 mg by mouth 3 (three) times a day as needed for muscle spasms. Wilman Vanessa lactulose (CEPHULAC) 10 gram packet 2016-12-28 10:26:53 Yes 10g Q.[id number] Take 10 g by mouth 3 (three) times a day. Wilman Vanessa polyethylene glycol (MIRALAX) 17 gram packet 2016-12-28 10:26:53 Yes 17g QD Take 17 g by mouth daily. Jesús Vanessa COMBIVENT RESPIMAT 20-100 mcg/actuation mist inhaler 2 00:00:00 Yes Wilman mccollum atorvastatin (LIPITOR) 20 MG tablet 2016-12-21 00:00:00 Yes Wilman Vanessa metoprolol tartrate (LOPRESSOR) 25 mg tablet 2016-12-21 00:00:00 Yes Wilman mccollum FLUoxetine (PROzac) 20 MG capsule 2016-12-17 00:00:00 Yes Wilman Vanessa lidocaine (LIDODERM) 5 % 2016-12-08 00:00:00 Yes Wilman Vanessa HYDROcodone-acetaminophen (NORCO) 10-325 mg per tablet 2016-12-01 00:00:00 Yes Wilman mccollum HUMALOG KWIKPEN 100 unit/mL injection pen 2016-11-23 00:00:00 Yes Wilman Vanessa ROZEREM 8 mg tablet 2016-10-30 00:00:00 Yes Wilman Vanessa furosemide (LASIX) 40 mg tablet 2016-10-22 00:00:00 Yes Wilman Vanessa metFORMIN XR (GLUCOPHAGE-XR) 500 mg 24 hr tablet 2016-10-22 00:00:00 Yes Wilman Miles ist amIODarone (PACERONE) 200 MG tablet 2016-10-12 00:00:00 Yes Wilman Vanessa amLODIPine (NORVASC) 5 mg tablet 2016-10-12 00:00:00 Yes Wilman Vanessa gabapentin (NEURONTIN) 300 mg capsule 2016-10-12 00:00:00 Yes Wilman Vanessa doxycycline (VIBRA-TABS) 100 MG tablet 2016-10-09 00:00:00 Yes Wilman Vanessa furosemide (LASIX) 20 mg tablet 2016-10-08 00:00:00 Yes Wilman Vanessa LEVEMIR FLEXTOUCH 100 unit/mL (3 mL) insulin pen 2016-10-04 00:00:00 Yes Wilman nelson RESTASIS 0.05 % ophthalmic emulsion 2016-10-02 00:00:00 Yes Wilman Vanessa Amlodipine Besylate Amlodipine Besylate Yes 5 Daily [facility] Apixaban (Eliquis) 2.5 Mg TABLET Apixaban (Eliquis) 2.5 Mg TABLET Yes 2.5 Twice A Day [facility] Ascorbic Acid (Vitamin C) 1,000 Mg TABLET Ascorbic Aci d (Vitamin C) 1,000 Mg TABLET Yes 1000 Daily [facility] Aspirin (Aspir 81) 81 Mg TABLET. Aspirin (Aspir 81) 81 Mg TABLET. Yes 81 Daily [facility] Atorvastatin Calcium Atorvastatin Calcium Yes 20 Bedtime [facility] Bumetanide Bumetanide Yes 2 Twice A Day [facility] Calcium Carbonate (Calcium) 600 Mg TABLET Calcium Carb sofie (Calcium) 600 Mg TABLET Yes 500 Daily [facility] Calcium/Magnesium/Zinc (Xcuzigk-Nccjhypsp-Jkpw Tab) 1 Each TABLET Calcium/Magnesium/Zinc (Mcaiesf-Kduhrbiwq-Iwpe Tab) 1 Each TABLET Yes Daily [facility] Clonidine Hcl Clonidine Hcl Yes .2 Twice A Day [facility] D3 D3 Yes 50 Daily [facility] Diclofenac Sodium (Voltaren) 100 Gm GEL..GRAM. Diclofe nac Sodium (Voltaren) 100 Gm GEL..GRAM. Yes As Needed [facility] Docusate Sodium (Dulcolax Stool Softener) 100 Mg CAPSU LE Docusate Sodium (Dulcolax Stool Softener) 100 Mg CAPSULE Yes 100 Daily [facility] Ferrous Sulfate Ferrous Sulfate Yes 325 Daily [facility] Fluoxetine Hcl Fluoxetine Hcl Yes 20 Daily [facility] Folic Acid Folic Acid Yes 800 Daily [facility] Gabapentin Gabapentin Yes 300 Three Times A Day [facility] Hydrocodone Hydrocodone Yes 10 Every 12 Hours as needed for Breakthrough Pain [facility] Insulin Detemir (Levemir) 100 Unit/1 Ml VIAL Insulin D etemir (Levemir) 100 Unit/1 Ml VIAL Yes 40 Before Supper as needed for Blood Sugar [facility] Insulin Lispro (Humalog) 100 Unit/1 Ml INSULN.PEN Insu guillermo Lispro (Humalog) 100 Unit/1 Ml INSULN.PEN Yes 12 As Needed [facility] Iron Iron Yes 28 Daily [facility] Lidocaine Patch Lidocaine Patch Yes As Neede d [facility] Linzess Linzess Yes 145 As Needed [facility] Megared Megared Yes 500 Daily [facility] Niacin Niacin Yes [address] [facility] Tumeric Tumeric Yes 500 Daily [facility] Tramadol Hcl (Ultram) 50 Mg TABLET Tramadol Hcl (Ultram) 50 Mg T [facility] 2019-09-28 00:00:00 No 50 Every 6 Hours as needed for Mild Pain (1-3) Or Fever>100.8 [facility] Tramadol Hcl (Ultram) 50 Mg TABLET Tramadol Hcl (Ultram) 50 Mg T [facility] 2019-02-09 00:00:00 No 50 Daily as needed for Pain [facility] Acetaminophen/Codeine Phosphate (Tylenol # 3*) 1 Ea TA B Acetaminophen/Codeine Phosphate (Tylenol # 3*) 1 Ea TAB 2018-08-21 00:00:00 No 1 Every 4 Hours as needed for Pain [facility] Multivitamin (Multivitamins) 1 Each CAPSULE Multivitam in (Multivitamins) 1 Each CAPSULE 2018-08-21 00:00:00 No Daily [facility] Acetaminophen With Codeine (Tylenol With Codeine #3 Ta blet) 1 Each TABLET Acetaminophen With Codeine (Tylenol With Codeine #3 Tablet) 1 Each TABLET 2018-03-08 00:00:00 No 1 Every 6 Hours for Pa in [facility] Ipratropium/Albuterol Sulfate (Combivent Respimat Inha l [place]) 4 Gm AER.W.ADAP Ipratropium/Albuterol Sulfate (Combivent Respimat Inhal [place]) 4 Gm AER.W.ADAP 2018-03-08 00:00:00 No 1 Every 6 Hours [facility] Amiodarone Hcl Amiodarone Hcl 2017-02-10 00:00:00 No 400 Daily [facility] Cyclobenzaprine Hcl Cyclobenzaprine Hcl 2017-02-10 00:00:00 No 5 Every 12 Hours [facility] Furosemide Furosemide 2017-02-10 00:00:00 No 40 Martha ly [facility] Lactulose Lactulose 2017-02-10 00:00:00 No 30 Every 6 Hours [facility] Metformin Hcl Metformin Hcl 2017-02-10 00:00:00 No 500 Twice A Day [facility] Metoprolol Tartrate Metoprolol Tartrate 2017-02-10 00:00:00 No 25 Twice A Day [facility] Polyethylene Glycol 3350 Polyethylene Glycol 3350 2017-02-10 00: 00:00 No 17 Daily [facility] Promethazine Hcl Promethazine Hcl 2017-02-10 00:00:00 No 25 Every 6 Hours as needed for Nausea And Vomiting [facility] Acetaminophen Acetaminophen 2016-04-13 00:00:00 No 650 As Needed [facility] Aspirin (Aspir-Low) 81 Mg TABLET. Aspirin (Aspir-Low) 81 Mg TA BLET. 2016-04-13 00:00:00 No 81 Daily [facility] Bisacodyl Bisacodyl 2016-04-13 00:00:00 No 5 Daily [facility] Docusate Sodium Docusate Sodium 2016-04-13 00:00:00 No 100 Twice A Day [facility] Doxycycline Monohydrate Doxycycline Monohydrate 2016-04-13 00:00 :00 No 100 Twice A Day [facility] Glycerin Glycerin 2016-04-13 00:00:00 No 3 Daily [facility] Metoprolol Tartrate Metoprolol Tartrate 2016-04-13 00:00:00 No 12.5 Twice A Day [facility] Nystatin Nystatin 2016-04-13 00:00:00 No Twice A Day [facility] Pantoprazole Sodium (Protonix) 40 Mg TABLET. Pantopr azole Sodium (Protonix) 40 Mg TABLET. 2016-04-13 00:00:00 No 40 Daily [facility] Protein Supplement (Protein Powder) 454 Gm POWDER Prot ein Supplement (Protein Powder) 454 Gm POWDER 2016-04-13 00:00:00 No Tw ice A Day [facility] Vitamin Renal Vitamin Renal 2016-04-13 00:00:00 No 1 Daily [facility] Zolpidem Tartrate Zolpidem Tartrate 2016-04-13 00:00:00 No 10 As Needed [facility] Heparin Sodium,Porcine (Heparin Sodium) 5,000 Unit/1 M l VIAL Heparin Sodium,Porcine (Heparin Sodium) 5,000 Unit/1 Ml VIAL 2015-07-26 00: 00:00 No 5000 Daily [facility] Heparin Sodium,Porcine (Heparin Sodium) 1,000 Unit/1 M l VIAL Heparin Sodium,Porcine (Heparin Sodium) 1,000 Unit/1 Ml VIAL 2015-07-26 00: 00:00 No 1000 Daily [facility] Mannitol Mannitol 2015-07-26 00:00:00 No 25 Daily [facility] Meropenem Meropenem 2015-07-26 00:00:00 No 500 Daily [facility] Ondansetron (Zofran Odt) 4 Mg TAB.RAPDIS Ondansetron ( Zofran Odt) 4 Mg TAB.RAPDIS 2015-07-26 00:00:00 No 4 E very 6 Hours for Nausea And Vomiting [facility] Pantoprazole Sodium (Protonix) 40 Mg TABLET. Pantopr azole Sodium (Protonix) 40 Mg TABLET. 2015-07-26 00:00:00 No 40 Twice A Day [facility] Vancomycin Hcl Vancomycin Hcl 2015-07-26 00:00:00 No 500 [facility] Carvedilol Carvedilol 2015-07-18 00:00:00 No 6.25 Twi ce A Day [facility] Gabapentin Gabapentin 2015-07-18 00:00:00 No 300 Twi ce A Day [facility] Insulin Aspart (Novolog Mix 70-30 Vial) 100 Units/Ml M L Insulin Aspart (Novolog Mix 70-30 Vial) 100 Units/Ml ML 2015-07-18 00:00:00 No 2 [facility] Insulin Aspart (Novolog Mix 70-30 Vial) 100 Units/Ml M L Insulin Aspart (Novolog Mix 70-30 Vial) 100 Units/Ml ML 2015-07-18 00:00:00 No 4 [facility] Insulin Aspart (Novolog Mix 70-30 Vial) 100 Units/Ml M L Insulin Aspart (Novolog Mix 70-30 Vial) 100 Units/Ml ML 2015-07-18 00:00:00 No 6 [facility] Insulin Aspart (Novolog Mix 70-30 Vial) 100 Units/Ml M L Insulin Aspart (Novolog Mix 70-30 Vial) 100 Units/Ml ML 2015-07-18 00:00:00 No 8 [facility] Insulin Aspart (Novolog Mix 70-30 Vial) 100 Units/Ml M L Insulin Aspart (Novolog Mix 70-30 Vial) 100 Units/Ml ML 2015-07-18 00:00:00 No 10 [facility] Insulin Detemir (Levemir) 100 Unit/1 Ml VIAL Insulin D etemir (Levemir) 100 Unit/1 Ml VIAL 2015-07-18 00:00:00 No 10 Bedtime [facility] Multivitamin Multivitamin 2015-07-18 00:00:00 No 5 Daily [facility] Omeprazole (Prilosec) 40 Mg CAPSULE. Omeprazole (Prilosec) 40 Mg CAPSULE. 2015-07-18 00:00:00 No 40 Daily [facility] Polyethylene Glycol 3350 Polyethylene Glycol 3350 2015-07-18 00: 00:00 No 17 Daily as needed for Constipation [facility] Quetiapine Fumarate Quetiapine Fumarate 2015-07-18 00:00:00 No 25 Bedtime for Depression [facility] Sertraline Hcl Sertraline Hcl 2015-07-18 00:00:00 No 50 Daily [facility] Trazodone Hcl Trazodone Hcl 2015-07-18 00:00:00 No 75 Bedtime for Insomnia [facility] Warfarin Sodium Warfarin Sodium 2015-07-18 00:00:00 No 13 Daily [facility] Vital Signs Vital Name Observation Time Observation Value Comments Source Body Temperature 2020-03-21 12:22:00 97.9 [degF] [facility] Systolic blood pressure 2020-03-13 12:37:00 117 mm[Hg] [facility] Diastolic blood pressure 2020-03-13 12:37:00 63 mm[Hg] [facility] Heart rate 2020-03-13 12:37:00 81 /min [facility] Body height 2020-03-13 12:37:00 177.8 cm [facility] Body weight 2020-03-13 12:37:00 81.511 kg [facility] BMI 2020-03-13 12:37:00 25.78 kg/m2 [facility] Body temperature 2020-01-12 07:22:00 36 Nora [facility] Respiratory rate 2020-01-12 07:22:00 18 /min [facility] Oxygen saturation in Arterial blood by Pulse oximetry 01-11 07:22:00 92 /min [facility] Procedures Procedure Date / Time Performed Performing Clinician [facility] e Computed tomography of chest without contrast 2020-03-14 00:00:0 0 [facility] [place] ARRYTHMIA IMPLANT REPORT - SCAN 2020-03-05 15:10:20 Provider, De fault Scanning [facility] ARRYTHMIA IMPLANT REPORT - SCAN 2020-03-01 17:26:48 Provider, De fault Scanning [facility] RHYTHM STRIP - SCAN 2020-01-16 14:21:13 Provider, Default Scanni ng [facility] ARRYTHMIA IMPLANT REPORT - SCAN 2020-01-16 08:21:06 Provider, De fault Scanning [facility] CARDIAC CATH REPORT - SCAN 2020-01-16 08:21:04 Provider, Default Scanning [facility] CARDIAC CATH REPORT - SCAN 2020-01-16 08:21:03 Provider, Default Scanning [facility] RHYTHM STRIP - SCAN 2020-01-16 08:21:01 Provider, Default Scanni ng [facility] RHYTHM STRIP - SCAN 2020-01-16 08:20:59 Provider, Default Scanni ng [facility] ARRYTHMIA IMPLANT REPORT - SCAN 2020-01-16 08:20:42 Provider, De fault Scanning [facility] BASIC METABOLIC PANEL (7) 2020-01-12 05:55:00 Curtis Fernandez Harshil [facility] MAGNESIUM 2020-01-12 05:55:00 Curtis Fernandez [facility] PHOSPHORUS 2020-01-12 05:55:00 Curtis Fernandez [facility] CBC W/PLT COUNT & AUTO DIFFERENTIAL 2020-01-12 05:55:00 Shane chavez Curtis [facility] POCT-GLUCOSE METER 2020-01-11 21:26:00 Brown [facility] TRANSFUSION SERVICE REPORT - SCAN 2020-01-11 18:01:08 Provid er, Default Scanning [facility] POCT-GLUCOSE METER 2020-01-11 16:44:00 Brown [facility] POCT-GLUCOSE METER 2020-01-11 12:08:00 Patsy Anthony [facility] POCT-GLUCOSE METER 2020-01-11 07:42:00 Patsy Anthony [facility] XR CHEST 1 VIEW PORTABLE/BEDSIDE 2020-01-11 05:21:00 Jennifer Buchanan [facility] BASIC METABOLIC PANEL (7) 2020-01-11 05:00:00 Curtis Fernandez I [facility] MAGNESIUM 2020-01-11 05:00:00 Brown Curtis [facility] PHOSPHORUS 2020-01-11 05:00:00 Brown [facility] CBC W/PLT COUNT & AUTO DIFFERENTIAL 2020-01-11 05:00:00 Shane chavez [facility] PREPARE LEUKO-REDUCED RBC 2020-01-10 23:54:00 Patsy Anthony [facility] POCT-GLUCOSE METER 2020-01-10 20:34:00 Patsy Anthony [facility] TRANSFUSION SERVICE REPORT - SCAN 2020-01-10 18:23:47 Provid er, Default Scanning [facility] POCT-GLUCOSE METER 2020-01-10 17:11:00 Patsy Anthony [facility] POCT-GLUCOSE METER 2020-01-10 12:12:00 Lucrecia [facility] AICD GENERATOR & LEADS - INSERTION W/ GENERAL ANESTHES IA (SING/DUAL/MULT) 2020-01-10 07:22:00 Rc Berger [facility] Yelenae r BASIC METABOLIC PANEL (7) 2020-01-10 04:31:00 Curtis Fernandez [facility] MAGNESIUM 2020-01-10 04:31:00 Curtis Fernandez [facility] PHOSPHORUS 2020-01-10 04:31:00 Brown [facility] CBC W/PLT COUNT & AUTO DIFFERENTIAL 2020-01-10 04:31:00 Curtis Gamez [facility] TRANSFUSE LEUKO-REDUCED RED BLOOD CELLS 2020-01-09 21:36:47 Sofia marquez Anthony [facility] POCT-GLUCOSE METER 2020-01-09 20:50:00 Patsy Anthony [facility] TRANSFUSION SERVICE REPORT - SCAN 2020-01-09 18:31:00 Provid er, Default Scanning [facility] TRANSFUSE LEUKO-REDUCED RED BLOOD CELLS 2020-01-09 18:08:15 Sofia marquez Anthony [facility] POCT-GLUCOSE METER 2020-01-09 17:04:00 Patsy [facility] SARS-COV2/RT-PCR ([facility] REF LABS) 2020-01-09 14:18:00 Lesa Buchanan [facility] POCT-GLUCOSE METER 2020-01-09 12:20:00 Patsy Anthony [facility] BASIC METABOLIC PANEL (7) 2020-01-09 05:59:00 Curtis Fernandez [facility] MAGNESIUM 2020-01-09 05:59:00 Brown [facility] PHOSPHORUS 2020-01-09 05:59:00 Brown [facility] CBC W/PLT COUNT & AUTO DIFFERENTIAL 2020-01-09 05:59:00 Shane chavez [facility] ANAEROBIC CULTURE 2020-01-08 09:49:29 Dhruv Elliott [facility] AFB CULTURE + SMEAR (NON-SPUTUM) 2020-01-08 09:49:29 Sean Elliott [facility] FUNGUS CULTURE + SMEAR 2020-01-08 09:49:29 Dhruv Elliott [facility] WOUND CULTURE + GRAM STAIN 2020-01-08 09:49:00 Dhruv Elliott [facility] SPIN/CONCENTRATION CHARGE 2020-01-08 09:49:00 MurieldivineDhruv [facility] SURGICALLY OBTAINED CULTURE + GRAM STAIN 2020-01-08 09:43:11 LexiDhruv [facility] ANAEROBIC CULTURE 2020-01-08 09:43:11 NeydaDhruv fernandezilios [facility] AFB CULTURE + SMEAR (NON-SPUTUM) 2020-01-08 09:43:11 Sean Elliott [facility] FUNGUS CULTURE + SMEAR 2020-01-08 09:43:11 [facility] SPIN/CONCENTRATION CHARGE 2020-01-08 09:43:00 Dhruv Elliott [facility] ANAEROBIC CULTURE 2020-01-08 09:10:11 LexiDhruv [facility] AFB CULTURE + SMEAR (NON-SPUTUM) 2020-01-08 09:10:11 Sean Elliott [facility] FUNGUS CULTURE + SMEAR 2020-01-08 09:10:11 NyedaDhruv [facility] WOUND CULTURE + GRAM STAIN 2020-01-08 09:10:00 Lexi Dhruv [place] SPIN/CONCENTRATION CHARGE 2020-01-08 09:10:00 Lexi Dhruv Parisi [facility] REMOVAL,STERNAL WIRE 2020-01-08 07:39:00 [facility] BASIC METABOLIC PANEL (7) 2020-01-08 04:59:00 Curtis Fernandez [facility] MAGNESIUM 2020-01-08 04:59:00 Curtis Fernandez [facility] PHOSPHORUS 2020-01-08 04:59:00 Brown [facility] TYPE AND SCREEN, AUTOMATED 2020-01-08 04:59:00 Evangelina Buchanan noble [facility] CBC W/PLT COUNT & AUTO DIFFERENTIAL 2020-01-08 04:59:00 Shane chavez [facility] BASIC METABOLIC PANEL (7) 2020-01-07 05:37:00 Curtis Fernandez [facility] MAGNESIUM 2020-01-07 05:37:00 Brown [facility] PHOSPHORUS 2020-01-07 05:37:00 Brown [facility] CBC W/PLT COUNT & AUTO DIFFERENTIAL 2020-01-07 05:37:00 Shane chavez [facility] VANCOMYCIN LEVEL, TROUGH 2020-01-06 17:30:00 Samantha Rodriguez [facility] POCT-GLUCOSE METER 2020-01-06 16:51:00 Brown [facility] POCT-GLUCOSE METER 2020-01-06 12:39:00 Brown [facility] POCT-GLUCOSE METER 2020-01-06 08:45:00 Brown [facility] POCT-GLUCOSE METER 2020-01-06 07:35:00 Brown [facility] BASIC METABOLIC PANEL (7) 2020-01-06 04:00:00 Brown Ucrtis [facility] MAGNESIUM 2020-01-06 04:00:00 Brown [facility] PHOSPHORUS 2020-01-06 04:00:00 Brown [facility] CBC W/PLT COUNT & AUTO DIFFERENTIAL 2020-01-06 04:00:00 Shnae chavez [facility] TRANSFUSION SERVICE REPORT - SCAN 2020-01-05 18:00:49 Provid er, Default Scanning [facility] AICD GENERATOR - REMOVAL ONLY (SINGLE, DUAL, MULTIPLE) 01-04 17:09:00 Rasekh, [facility] SUBCUTANEOUS ICD LEAD REMOVAL ONLY (S-ICD) 2020-01-05 17:09:00 [facility] W/[facility]T COUNT & AUTO DIFFERENTIAL 2020-01-05 03:51:00 Shane chavez [facility] BASIC METABOLIC PANEL (7) 2020-01-05 03:50:00 Brown [facility] MAGNESIUM 2020-01-05 03:50:00 Brown [facility] PHOSPHORUS 2020-01-05 03:50:00 Brown [facility] POCT-GLUCOSE METER 2020-01-04 14:57:00 Brown [facility] BASIC METABOLIC PANEL (7) 2020-01-04 05:23:00 Brown [facility] MAGNESIUM 2020-01-04 05:23:00 Brown [facility] PHOSPHORUS 2020-01-04 05:23:00 Brown [facility] VANCOMYCIN LEVEL, RANDOM 2020-01-04 05:23:00 Samantha Rodriguez [facility] TYPE AND SCREEN, AUTOMATED 2020-01-04 05:23:00 Philippe Rothman [facility] CBC W/PLT COUNT & AUTO DIFFERENTIAL 2020-01-04 05:23:00 Shane chavez [facility] VANCOMYCIN LEVEL, TROUGH 2020-01-03 16:28:00 Samantha Rodriguez [facility] SARS-COV2/RT-PCR ([facility] REF LABS) 2020-01-03 16:27:00 Madeline Elliott [facility] BASIC METABOLIC PANEL (7) 2020-01-03 06:05:00 Brown [facility] MAGNESIUM 2020-01-03 06:05:00 Brown [facility] PHOSPHORUS 2020-01-03 06:05:00 Brown [facility] CBC W/PLT COUNT & AUTO DIFFERENTIAL 2020-01-03 06:05:00 Nevilledionykrystin chavez [facility] BASIC METABOLIC PANEL (7) 2020-01-02 04:45:00 Brown Curtis [facility] MAGNESIUM 2020-01-02 04:45:00 Brown [facility] PHOSPHORUS 2020-01-02 04:45:00 Brown [facility] CBC W/PLT COUNT & AUTO DIFFERENTIAL 2020-01-02 04:45:00 Nevilledionykrystin chavez [facility] ECG 12-LEAD 2020-01-01 16:48:21 Unknown, Hl7 [facility] BASIC METABOLIC PANEL (7) 2020-01-01 04:41:00 Brown [facility] MAGNESIUM 2020-01-01 04:41:00 Brown [facility] PHOSPHORUS 2020-01-01 04:41:00 Brown [facility] VITAMIN B12 AND FOLATE 2020-01-01 04:41:00 Víctor Cerna [facility] CBC W/PLT COUNT & AUTO DIFFERENTIAL 2020-01-01 04:41:00 Shane chavez [facility] VANCOMYCIN LEVEL, TROUGH 2019-12-31 18:37:00 Rianna Lynn [facility] ECG 12-LEAD 2019-12-31 06:33:41 Unknown, Hl7 [facility] BASIC METABOLIC PANEL (7) 2019-12-31 03:59:00 Brown Curtis [facility] MAGNESIUM 2019-12-31 03:59:00 Brown [facility] PHOSPHORUS 2019-12-31 03:59:00 Brown [facility] CBC W/PLT COUNT & AUTO DIFFERENTIAL 2019-12-31 03:59:00 Shane chavez [facility] BASIC METABOLIC PANEL (7) 2019-12-30 04:25:00 Brown Curtis [facility] MAGNESIUM 2019-12-30 04:25:00 Brown [facility] PHOSPHORUS 2019-12-30 04:25:00 Brown [facility] CBC W/PLT COUNT & AUTO DIFFERENTIAL 2019-12-30 04:25:00 Shane chavez [facility] VANCOMYCIN LEVEL, TROUGH 2019-12-29 17:00:00 Rianna Lynn [facility] SARS-COV2/RT-PCR ([facility] RE[facility]) 2019-12-29 10:27:00 Jay Camargo [facility] BASIC METABOLIC PANEL (7) 2019-12-29 06:09:00 Curtis Fernandez [facility] MAGNESIUM 2019-12-29 06:09:00 Brown [facility] PHOSPHORUS 2019-12-29 06:09:00 Brown [facility] CBC W/PLT COUNT & AUTO DIFFERENTIAL 2019-12-29 06:09:00 Shane chavez [facility] POCT-GLUCOSE METER 2019-12-28 20:37:00 Brown [facility] XR CHEST 1 VIEW PORTABLE/BEDSIDE 2019-12-28 14:38:00 Brown [facility] POCT-GLUCOSE METER 2019-12-28 07:21:00 Brown [facility] BASIC METABOLIC PANEL (7) 2019-12-28 04:56:00 Curtis Fernandez [facility] MAGNESIUM 2019-12-28 04:56:00 Brown [facility] PHOSPHORUS 2019-12-28 04:56:00 Brown [facility] CBC W/PLT COUNT & AUTO DIFFERENTIAL 2019-12-28 04:56:00 Shane chavez [facility] VANCOMYCIN LEVEL, TROUGH 2019-12-27 17:22:00 Rianna Lynn [facility] POCT-GLUCOSE METER 2019-12-27 11:42:00 Brown [facility] XR STERNUM 2 VIEWS MIN 2019-12-27 09:52:00 MurielDhruv carolina os [facility] XR CHEST 2 VIEWS 2019-12-27 09:50:00 LexiDhruv [facility] POCT-GLUCOSE METER 2019-12-27 08:14:00 Brown [facility] BASIC METABOLIC PANEL (7) 2019-12-27 04:29:00 Curtis Fernandez [facility] MAGNESIUM 2019-12-27 04:29:00 Brown [facility] PHOSPHORUS 2019-12-27 04:29:00 Brown [facility] CBC W/PLT COUNT & AUTO DIFFERENTIAL 2019-12-27 04:29:00 Shane chavez [facility] POCT-GLUCOSE METER 2019-12-26 21:25:00 Brown [facility] POCT-GLUCOSE METER 2019-12-26 08:01:00 Brown [facility] BASIC METABOLIC PANEL (7) 2019-12-26 06:45:00 Curtis Fernandez [facility] MAGNESIUM 2019-12-26 06:45:00 Brown [facility] PHOSPHORUS 2019-12-26 06:45:00 Brown [facility] CBC W/PLT COUNT & AUTO DIFFERENTIAL 2019-12-26 06:45:00 Shane chavez [facility] POCT-GLUCOSE METER 2019-12-25 22:20:00 Brown [facility] POCT-GLUCOSE METER 2019-12-25 17:13:00 Brown [facility] POCT-GLUCOSE METER 2019-12-25 12:18:00 Brown [facility] POCT-GLUCOSE METER 2019-12-25 08:47:00 Brown [facility] BASIC METABOLIC PANEL (7) 2019-12-25 04:39:00 Brown, Roy [facility] MAGNESIUM 2019-12-25 04:39:00 Brown [facility] PHOSPHORUS 2019-12-25 04:39:00 Borwn [facility] CBC W/PLT COUNT & AUTO DIFFERENTIAL 2019-12-25 04:39:00 Shane chavez [facility] POCT-GLUCOSE METER 2019-12-24 21:16:00 Brown, [facility] BASIC METABOLIC PANEL (7) 2019-12-24 20:45:00 Ildefonso Murphy [facility] POCT-GLUCOSE METER 2019-12-24 16:46:00 Brown [facility] POTASSIUM 2019-12-24 15:51:00 Edie Sheth [facility] BASIC METABOLIC PANEL (7) 2019-12-24 15:51:00 Ildefonso Murphy [facility] POCT-GLUCOSE METER 2019-12-24 12:20:00 Brown, [facility] BASIC METABOLIC PANEL (7) 2019-12-24 11:57:00 Brown Curtis [facility] MAGNESIUM 2019-12-24 11:57:00 Brown [facility] PHOSPHORUS 2019-12-24 11:57:00 Brown [facility] CBC W/PLT COUNT & AUTO DIFFERENTIAL 2019-12-24 11:57:00 Shane chavez [facility] POCT-GLUCOSE METER 2019-12-24 07:16:00 Brown [facility] POCT-GLUCOSE METER 2019-12-23 21:33:00 Brown [facility] POCT-GLUCOSE METER 2019-12-23 17:18:00 Brown [facility] VANCOMYCIN LEVEL, TROUGH 2019-12-23 17:07:00 Jazmyn Barnes [facility] POCT-GLUCOSE METER 2019-12-23 12:37:00 Brown [facility] POCT-GLUCOSE METER 2019-12-23 08:00:00 Brown [facility] BASIC METABOLIC PANEL (7) 2019-12-23 04:34:00 Curtis Fernandez [facility] MAGNESIUM 2019-12-23 04:34:00 Curtis Fernandez [facility] PHOSPHORUS 2019-12-23 04:34:00 Brown [facility] CBC W/PLT COUNT & AUTO DIFFERENTIAL 2019-12-23 04:34:00 Shane chavez [facility] CT ABDOMEN/PELVIS WITHOUT IV CONTRAST 2019-12-23 00:19:00 Jazmyn Molina [facility] POCT-GLUCOSE METER 2019-12-22 21:20:00 Brown [facility] POCT-GLUCOSE METER 2019-12-22 16:56:00 Brown [facility] POCT-GLUCOSE METER 2019-12-22 14:23:00 Brown [facility] TRANSESOPHAGEAL ECHO 2019-12-22 11:07:57 Pepe Delarosa [facility] POCT-GLUCOSE METER 2019-12-22 07:36:00 Brown [facility] BLOOD CULTURE 2019-12-22 04:50:00 Jazmyn Barnes [facility] BLOOD CULTURE 2019-12-22 04:37:00 Jazmyn Barnes [facility] BASIC METABOLIC PANEL (7) 2019-12-22 04:37:00 Curtis Fernandez [facility] MAGNESIUM 2019-12-22 04:37:00 Brown [facility] PHOSPHORUS 2019-12-22 04:37:00 Brown [facility] CBC W/PLT COUNT & AUTO DIFFERENTIAL 2019-12-22 04:37:00 Shane chavez [facility] SARS-COV2/RT-PCR ([facility] REF LABS) 2019-12-21 22:30:00 Brown [facility] POCT-GLUCOSE METER 2019-12-21 21:23:00 Brown [facility] POCT-GLUCOSE METER 2019-12-21 17:21:00 Brown [facility] OCCULT BLOOD, STOOL 2019-12-21 15:56:00 Brown [facility] COLOR-FLOW MAPPING 2019-12-21 15:04:24 Molly Jazmyn [facility] CONT WAVE PULSED DOPPLER 2019-12-21 15:04:24 Jazmyn Barnes [facility] IRON, TIBC, % SAT. (WITHOUT FERRITIN) 2019-12-21 14:10:00 Nichole méndez [facility] FERRITIN 2019-12-21 14:10:00 Brown [facility] POCT-GLUCOSE METER 2019-12-21 12:23:00 Brown [facility] URINALYSIS W/ REFLEX URINE CULTURE 2019-12-21 08:54:00 Brown [facility] POCT-GLUCOSE METER 2019-12-21 08:15:00 Brown [facility] BASIC METABOLIC PANEL (7) 2019-12-21 04:29:00 Brown Curtis [facility] MAGNESIUM 2019-12-21 04:29:00 Brown [facility] PHOSPHORUS 2019-12-21 04:29:00 Brown [facility] CBC W/PLT COUNT & AUTO DIFFERENTIAL 2019-12-21 04:29:00 Shane chavez [facility] POCT-GLUCOSE METER 2019-12-20 21:24:00 Brown [facility] POCT-GLUCOSE METER 2019-12-20 17:43:00 Brown [facility] POCT-GLUCOSE METER 2019-12-20 12:25:00 Brown [facility] POCT-GLUCOSE METER 2019-12-20 08:29:00 Brown [facility] BASIC METABOLIC PANEL (7) 2019-12-20 04:26:00 Curtis Fernandez CH, I [facility] MAGNESIUM 2019-12-20 04:26:00 Brown [facility] PHOSPHORUS 2019-12-20 04:26:00 Brown [facility] C-REACTIVE PROTEIN 2019-12-20 04:26:00 Jazmyn Barnes [facility] TSH/FREE T4 IF INDICATED 2019-12-20 04:26:00 Jazmyn Barnes [facility] CBC W/PLT COUNT & AUTO DIFFERENTIAL 2019-12-20 04:26:00 Shane chavez [facility] POCT-GLUCOSE METER 2019-12-20 03:49:00 Brown [facility] BLOOD CULTURE 2019-12-19 18:33:00 Brown [facility] BLOOD CULTURE IDENTIFICATION PANEL 2019-12-19 18:33:00 Brown [facility] POCT-GLUCOSE METER 2019-12-19 16:52:00 Brown [facility] WOUND CULTURE + GRAM STAIN 2019-12-19 16:20:00 Sommer Barnes [facility] BLOOD CULTURE 2019-12-19 15:05:00 Brown [facility] POCT-GLUCOSE METER 2019-12-19 12:03:00 Brown [facility] POCT-GLUCOSE METER 2019-12-19 07:59:00 Brown [facility] BASIC METABOLIC PANEL (7) 2019-12-19 04:09:00 Curtis Fernandez CH I [facility] MAGNESIUM 2019-12-19 04:09:00 Brown [facility] PHOSPHORUS 2019-12-19 04:09:00 Brown [facility] CBC W/PLT COUNT & AUTO DIFFERENTIAL 2019-12-19 04:09:00 Shane chavez [facility] POCT-GLUCOSE METER 2019-12-18 21:02:00 Brown [facility] POCT-GLUCOSE METER 2019-12-18 17:14[facility] PO[facility]SE [facility] 2019-12-18 12:49:00 Brown [facility] POCT-GLUCOSE METER 2019-12-18 08:22:00 Brown [facility] HEMOGLOBIN A1C 2019-12-18 04:29:00 Brown [facility] BASIC METABOLIC PANEL (7) 2019-12-18 04:29:00 Brown Curtis [facility] MAGNESIUM 2019-12-18 04:29:00 Brown [facility] PHOSPHORUS 2019-12-18 04:29:00 Brown [facility] CBC W/PLT COUNT & AUTO DIFFERENTIAL 2019-12-18 04:29:00 Shane chavez [facility] POCT-GLUCOSE METER 2019-12-17 21:59:00 Brown [facility] POCT-GLUCOSE METER 2019-12-17 17:29:00 [facility] 12-LEAD 2019-12-17 16:44:23 Unknown, Hl7 [facility] XR RIBS WITH PA CHEST 3 VIEWS MIN RIGHT 2019-12-17 15:27:00 Janeth anderson [facility] POCT-GLUCOSE METER 2019-12-17 12:25:00 [facility] BASIC METABOLIC PANEL (7) 2019-12-17 08:18:00 Curtis Fernandez Harshil [facility] MAGNESIUM 2019-12-17 08:18:00 Brown [facility] PHOSPHORUS 2019-12-17 08:18:00 Brown [facility] POCT-GLUCOSE METER 2019-12-17 07:55:00 Brown [facility] CBC W/PLT COUNT & AUTO DIFFERENTIAL 2019-12-17 07:11:00 Shane chavez [facility] POCT-GLUCOSE METER 2019-12-16 21:50:00 Brown [facility] ECG 12-LEAD 2019-12-16 18:17:30 Unknown, Hl7 [facility] NM LUNG PERFUSION SCAN 2019-12-16 17:49:00 Brown [facility] POCT-GLUCOSE METER 2019-12-16 13:05:00 Brown [facility] BLOOD CULTURE 2019-12-16 13:04:00 Brown [facility] TROPONIN I 2019-12-16 13:04:00 Brown [facility] BLOOD CULTURE 2019-12-16 12:56:00 Brown [facility] SARS-COV2/RT-PCR ([facility] RE[facility]S) 2019-12-16 12:15:00 Brown [facility] URINALYSIS W/ REFLEX URINE CULTURE 2019-12-16 12:15:00 Brown [facility] 2D ECHO W/ DOPPLER (CW/PW/COLOR) 2019-12-16 11:30:17 Cynthia Delarosa [facility] CT CHEST WITHOUT IV CONTRAST 2019-12-16 09:52:00 Brown [facility] TROPONIN I 2019-12-16 08:32:00 Brown [facility] BASIC METABOLIC PANEL (7) 2019-12-16 08:32:00 Curtis Fernandez [facility] MAGNESIUM 2019-12-16 08:32:00 Curtis Fernandez [facility] PHOSPHORUS 2019-12-16 08:32:00 Brown, Roy [facility] CBC W/PLT COUNT & AUTO DIFFERENTIAL 2019-12-16 08:32:00 Shane kathy Curtis [facility] POCT-GLUCOSE METER 2019-12-16 08:17:00 Brown, Roy [facility] EXTIRPATION OF MATTER FROM STOMACH, OPEN APPROACH 2019-11-15 00: 00:00 [facility] REPAIR ABDOMINAL WALL, OPEN APPROACH 2019-11-15 00:00:00 [facility] TRANSFUSE NONAUT RED BLOOD CELLS IN PERIPH VEIN, PERC 2019-11-11 00:00:00 [facility] EXCISION OF STOMACH, ENDO, DIAGN 2019-11-11 00:00:00 [facility] TRANSFUSE NONAUT RED BLOOD CELLS IN PERIPH VEIN, PERC 2019-11-10 00:00:00 [facility] EXC TR-EXT B9+LAILA >4.0 CM 2019-09-28 00:00:00 C [facility] INTMD RPR S/A/T/EXT 12.6-20 2019-09-28 00:00:00 [facility] LAPAROSCOPE PROC INTESTINE 2019-09-28 00:00:00 C [facility] Plan of Care Planned Activity Planned Date Details Comments Source Future Scheduled Test 2020-12-20 00:00:00 Screening for blade gnant neoplasm of colon (procedure) [code = 587013006] [facility] Future Scheduled Test 2020-06-19 00:00:00 Hemoglobin A1c unruly surement (procedure) [code = 86642951] [facility] Future Scheduled Test 2020-02-13 00:00:00 INFLUENZA VACCINE (#1) [code = INFLUENZA VACCINE (#1)] [facility] Future Scheduled Test 2020-01-13 00:00:00 INFLUENZA VACCINE [code = INFLUENZA VACCINE] [facility] Scheduled Test 2010 00:00:00 65+ PNEUMOCOCCAL V ACCINE (1 of 1 - PPSV23) [code = 65+ PNEUMOCOCCAL VACCINE (1 of 1 - PPSV23)] [facility] Scheduled Test 2010 00:00:00 PNEUMOCOCCAL 65+ Y RS (1 of 1 - [id number]) [code = PNEUMOCOCCAL 65+ YRS (1 of 1 - [id number])] [facility] Scheduled Test 1995 00:00:00 BREAST CANCER SCRE ENING [code = BREAST CANCER SCREENING] [facility] Scheduled Test 1995 00:00:00 COLONOSCOPY SCREEN ING [code = COLONOSCOPY SCREENING] [facility] Scheduled Test 1995 00:00:00 SHINGLES VACCINES (#1) [code = SHINGLES VACCINES (#1)] [facility] Scheduled Test 1994-07-16 00:00:00 MEDICARE ANNUAL WE LLNESS (YEAR 2 or FIRST YEAR if no IPPE) [code = MEDICARE ANNUAL WELLNESS (YEAR 2 or FIRST YEAR if no IPPE)] [facility] Scheduled Test 1955 00:00:00 DIABETIC EYE EXAM [code = DIABETIC EYE EXAM] [facility] Scheduled Test 1955 00:00:00 Diabetic foot exam ination (regime/therapy) [code = 829584405] [facility] Future Scheduled Test 1955 00:00:00 Urine screening fo r protein (procedure) [code = 153605227] [facility] Instructions Infection Control [facility] Instructions Post Operative Pain [facility] Instructions Wound Care (General) [facility] Encounters Start Date/Time End Date/Time Encounter Type Admission Type Attendi [facility] Care Department Encounter ID Source 2020-03-14 18:08:00 2020-03-21 14:55:00 Discharged Inpatient 3 ALONDRA MOREIRA [facility] [id number] [facility] 2019-12-15 21:09:00 2019-12-16 04:13:00 Departed Emergency Room MARJORIE ARCINIEGA [facility] [id number] [facility] 2019-11-10 21:57:00 2019-11-22 18:56:00 Discharged Inpatient 1 JONNY MILLER [facility] [id number] [facility] 2019-09-28 06:47:00 2019-09-28 06:47:00 Registered Surgical Day Care [facility] [id number] [facility] 2019-02-17 14:51:00 2019-02-18 14:11:00 Discharged Inpatient (obs) 3 BALDOMERO WELSH [facility] [id number] [facility] 2018-08-21 13:57:00 2018-09-01 17:33:00 Discharged Inpatient 1 ALONDRA MOREIRA [facility] [id number] [facility] 2018-03-09 11:10:00 2018 16:21:00 Discharged Inpatient 3 BALDOMERO WELSH [facility] [id number] [facility] Results Test Description Test Time Test Comments Results Result Comments Source Capillary blood glucose measurement by glucometer (mas s/volume) 2020-03-21 07:12:00 Test Item Bedside Glucose (test code = 71185-0) 126 70-120 Meter ID: [id number] [facility] SouthBlood leukocytes automated count (number/volume)2020-03-21 05:05:00* Test Item Value Reference Range Interpretation Comments White Blood Count (test code = 6690-2) 4.44 4.8-10.8 [facility] erythrocytes automated count (number/volume)2020-03-21 05:05:00* Test Item Value Reference Range Interpretation Comments Red Blood Count (test code = 789-8) 2.54 3.6-5.1 [facility] hemoglobin measurement (moles/volume)2020-03-21 05:05:00* Test Item Value Reference Range Interpretation Comments Hemoglobin (test code = 34008-4) 7.7 12.0-16.0 [facility] South[facility] blood hematocrit (volume fraction)2020-03-21 05:05:00* Test Item Value Reference Range Interpretation Comments Hematocrit (test code = 4544-3) 25.2 34.2-44.1 [facility] SouthAutomated erythrocyte mean corpuscular slszgz6262-13-16 05:05:00* Test Item Value Reference Range Interpretation Comments Mean Corpuscular Volume (test code = 787-2) 99.2 81-99 [facility] South[facility] erythrocyte mean corpuscular hemoglobin (mass per erythrocyte)2020-03-21 05:05:00* Test Item Value Reference Range Interpretation Comments Mean Corpuscular Hemoglobin (test code = 785-6) 30.3 28-32 [facility] SouthAutduke university hospitaled erythrocyte mean corpuscular hemoglobin concentration measurement (mass/volume)2020-03-21 05:05:00* Test Item Value Reference Range Interpretation Comments Mean Corpuscular Hemoglobin Concent (test code = 786-4) 30.6 31-35 [facility] SouthRDW WdqZz-Vbr9620-37-08 05:05:00* Test Item Value Reference Range Interpretation Comments Red Cell Distribution Width (test code = 40280-5) 14.6 11.7 -14.4 [facility] platelet count (count/volume)2020-03-21 05:05:00* Test Item Value Reference Range Interpretation Comments Platelet Count (test code = 777-3) 138 140-360 [facility] segmented neutrophil count as percentage of total pdcoahpsgz6153-78-48 05:05:00* Test Item Value Reference Range Interpretation Comments Neutrophils (%) (Auto) (test code = 33036-8) 55.0 38.7-80.0 [facility] SouthAutdu[facility] hospitaled blood lymphocyte count as percentage ot total cmlxggikbv3626-58-36 05:05:00* Test Item Value Reference Range Interpretation Comments Lymphocytes (%) (Auto) (test code = 736-9) 30.2 18.0-39.1 [facility] SouthAutom[facility] blood monocyte count as percentage of total kqhrxmbmrt0280-97-70 05:05:00* Test Item Value Reference Range Interpretation Comments Monocytes (%) (Auto) (test code = 5905-5) 9.2 4.4-11.3 [facility] SouthAutom[facility] blood eosinophil count as percentage of total qkaerlpboo1148-00-89 05:05:00* Test Item Value Reference Range Interpretation Comments Eosinophils (%) (Auto) (test code = 713-8) 4.7 0.0-6.0 [facility] SouthAutom[facility] blood basophil count as percentage of total hblpgoxhiu1749-09-46 05:05:00* Test Item Value Reference Range Interpretation Comments Basophils (%) (Auto) (test code = 706-2) 0.7 0.0-1.0 [facility] SouthFluoroscopic procedure less than one hour nhlnmygt2587-93-14 05:05:00* Test Item Value Reference Range Interpretation Comments IM GRANULOCYTES % (test code = IM GRANULOCYTES %) 0.2 0.0- 1.0 [facility] SouthAutom[facility] blood neutrophil count 2020-03-21 05:05:00* Test Item Value Reference Range Interpretation Comments Neutrophils # (Auto) (test code = 751-8) 2.4 2.1-6.9 [facility] South[facility] lymphocytes count (number/volume) 2020-03-21 05:05:00* Test Item Value Reference Range Interpretation Comments Lymphocytes # (Auto) (test code = 14141-6) 1.3 1.0-3.2 [facility] SouthBlood monocytes automated count (number/volume)2020-03-21 05:05:00* Test Item Value Reference Range Interpretation Comments Monocytes # (Auto) (test code = 742-7) 0.4 0.2-0.8 [facility] SouthAutomated blood eosinophil count 2020-03-21 05:05:00* Test Item Value Reference Range Interpretation Comments Eosinophils # (Auto) (test code = 711-2) 0.2 0.0-0.4 [facility] SouthAutomated blood basophil count (count/volume)2020-03-21 05:05:00* Test Item Value Reference Range Interpretation Comments Basophils # (Auto) (test code = 704-7) 0.0 0.0-0.1 [facility] SouthFluoroscopic procedure less than one hour vogoxqsa7011-50-26 05:05:00* Test Item Value Reference Range Interpretation Comments Absolute Immature Granulocyte (auto (shantelle t code = Absolute Immature Granulocyte (auto) 0.01 0-0.1 [facility] plasma sodium measurement (moles/volume)2020-03-21 05:05:00* Test Item Value Reference Range Interpretation Comments Sodium Level (test code = 2951-2) 133 136-145 [facility]um or plasma potassium measurement (moles/volume)2020-03-21 05:05:00* Test Item Value Reference Range Interpretation Comments Potassium Level (test code = 2823-3) 5.0 3.5-5.1 [facility]um or plasma chloride measurement (moles/volume)2020-03-21 05:05:00* Test Item Value Reference Range Interpretation Comments Chloride Level (test code = 2075-0) 104 98-107 [facility]asterum or plasma carbon dioxide, total measurement (moles/volume)2020-03-21 05:05:00* Test Item Value Reference Range Interpretation Comments Carbon Dioxide Level (test code = 2028-9) 21 22-29 [facility]asterum or plasma anion wnw0817-75-25 05:05:00* Test Item Value Reference Range Interpretation Comments Anion Gap (test code = 32939-3) 13.0 8-16 [facility]asterum or plasma urea nitrogen measurement (mass/volume)2020-03-21 05:05:00* Test Item Value Reference Range Interpretation Comments Blood Urea Nitrogen (test code = 3094-0) 24 7-26 [facility]asterum or plasma creatinine measurement (mass/volume)2020-03-21 05:05:00* Test Item Value Reference Range Interpretation Comments Creatinine (test code = 2160-0) 1.70 0.57-1.11 [facility]asterum or plasma urea nitrogen/creatinine mass svbip0860-47-89 05:05:00* Test Item Value Reference Range Interpretation Comments BUN/Creatinine Ratio (test code = 3097-3) 14 6-25 [facility] SouthEstimated glomerular filtration rate (GFR) cralgerhbvgux4337-25-10 05:05:00* Test Item Value Reference Range Interpretation Comments Estimat Glomerular Filtration Rate (test code = 211847572) 29 >60 Ranges were taken from the National Kidney Disease Education Program and the [facility] Kidney Foundation literature.Reference ranges:60 or greater: Iljxuw87-48 ( for 3 consecutive months): Chronic kidney disease 15 or less: Kidney failureTexas Health Huguley Hospital [facility] SouthGlucose fhfsmlcopum2899-71-09 05:05:00* Test Item Value Reference Range Interpretation Comments Glucose Level (test code = MVX4574) 112 74-118 [facility]asterum or plasma calcium measurement (mass/volume)2020-03-21 05:05:00* Test Item Value Reference Range Interpretation Comments Calcium Level (test code = 23199-4) 8.5 8.4-10.2 [facility] Southeasterum or plasma trough vancomycin level at trough (mass/volume)2020-03-20 20:00:00* Test Item Value Reference Range Interpretation Comments Vancomycin Level Trough (test code = 4092-3) 22.6 5.0-10.0 Results repeated and called to Miguel Jade at 2025 on 03/20/20 by Steve bhat. Read back and verified.[facility]heasterum or plasma total bilirubin measurement (mass/volume)2020-03-19 05:58:00* Test Item Value Reference Range Interpretation Comments Total Bilirubin (test code = 1975-2) 0.3 0.2-1.2 [facility] SouthFluoroscopic procedure less than one hour dgnwmebj6876-42-18 05:58:00* Test Item Value Reference Range Interpretation Comments Aspartate Amino Transf (AST/SGOT) (test code = Aspartate Amino Transf (AST/SGOT)) 15 5-34 [facility]heasterum or plasma alanine aminotransferase measurement (enzymatic activity/volume)2020-03-19 05:58:00* Test Item Value Reference Range Interpretation Comments Alanine Aminotransferase (ALT/SGPT) (test code = 1742-6) < 6 0-55 [facility]heasterum or plasma protein measurement (mass/volume)2020-03-19 05:58:00* Test Item Value Reference Range Interpretation Comments Total Protein (test code = 2885-2) 6.4 6.5-8.1 [facility]asterum or plasma albumin measurement (mass/volume)2020-03-19 05:58:00* Test Item Value Reference Range Interpretation Comments Albumin (test code = 1751-7) 2.7 3.5-5.0 [facility] SouthPlasma globulin measurement (mass/volume) 2020-03-19 05:58:00* Test Item Value Reference Range Interpretation Comments Globulin (test code = 95423-4) 3.7 2.3-3.5 [facility]asterum or plasma albumin/globulin mass cfnrl7422-75-46 05:58:00* Test Item Value Reference Range Interpretation Comments Albumin/Globulin Ratio (test code = 1759-0) 0.7 0.8-2.0 [facility]asterum or plasma alkaline phosphatase measurement (enzymatic activity/volume)2020-03-19 05:58:00* Test Item Value Reference Range Interpretation Comments Alkaline Phosphatase (test code = 6768-6) 83 40-150 [facility]asterum or plasma iron measurement (mass/volume)2020-03-18 06:11:00* Test Item Value Reference Range Interpretation Comments Iron Level (test code = 2498-4) 21 50-170 [facility]asterum or plasma iron binding capacity measurement (mass/volume)2020-03-18 06:11:00* Test Item Value Reference Range Interpretation Comments Total Iron Binding Capacity (test code = 2500-7) 218 261-4 78 [facility]heasterum or plasma iron saturation measurement (mass fraction)2020-03-18 06:11:00* Test Item Value Reference Range Interpretation Comments Percent Iron Saturation (test code = 2502-3) 10 15-50 [facility]asterum or plasma transferrin measurement (mass/volume)2020-03-18 06:11:00* Test Item Value Reference Range Interpretation Comments Transferrin (test code = 3034-6) 156 180-382 [facility]asterum or plasma ferritin measurement (mass/volume)2020-03-18 06:11:00* Test Item Value Reference Range Interpretation Comments Ferritin (test code = 2276-4) 313.86 4.63-204.00 [facility] Southeasttool gastrointestinal hemoglobin pjjfdpyln7940-00-02 18:35:00* Test Item Value Reference Range Interpretation Comments Stool Occult Blood (test code = 2335-8) NEGATIVE NEGATIVE [facility] SouthCHEST XRAY LINE [id number] 17:33:00 [facility] [address] [address] Patient Name: DUKE AUGUSTINE MR #: [id number] : 1945 Age/Sex: 75/F Req #: [id number] Adm Physician: ALONDRA MOREIRA MD Ordered by: JANEL TAYLOR, RENATA TAYLOR Report #: [id number] Location: MED/SURG3 Room/Bed: [facility] Procedure: [id number] DX/CHEST XRA Y LINE PLACEMENT Exam Date: 03/16/20 Exam Time: 172 REPORT STATUS: Signed EXAMINATI ON: CHEST XRAY LINE PLACEMENT INDICATION: PICC LINE PLACEMEN T [id number] COMPARISON: CT chest 03/25/2020 and chest radiog raph 12/15/2019 FINDINGS: AP view TUBES and LINES: Right extre mity PICC is seen along the right axilla and then is obscured by the overlying ICD device near the chest wall. A distal catheter is noted in the course of t he superior SVC which may represent the distal PICC. Unchanged single lead ICD has been placed with lead overlying the right ventricle. LUNGS: Lungs are well inflated. Mild bilateral interstitial edema. No new consolidations . PLEURA: No pleural effusion or pneumothorax. HEART AND MEDIASTINUM: Stable enlargement of the cardiac silhouette. BONES AND SOFT TISSUES: Mo st of the sternal wire has been removed. There are several linear wires overly ing the mid chest, unchanged when compared to most recent CT from 03/14/2020. Soft tissues are unremarkable. UPPER ABDOMEN: No free air under the diaphra gm. IMPRESSION: Difficult to evaluate the right upper extremity PICC but tip appears to be in the superior SVC. Recommend repeat chest radiograph frontal and lateral view. No pneumothorax. Single-lead ICD with lead over lying the right ventricle. Bilateral interstitial edema. Signed by: Dr Surya Argueta M.D. on 03/16/2020 5:46 PM Dictated By: ANNABEL ARGUETA MD 45 COPY TO: BLAKE ISLAS Bacteria identification in wound by daawvdv5080-41-79 06:15:00* Test Item Value Reference Range Interpretation Comments Wound Culture (test code = 6462-6) STAPHYLOCOCCUS AUREUS-MRSA [facility] SouthFluoroscopic procedure less than one hour izeolnfh6792-21-15 22:19:00* Test Item Value Reference Range Interpretation Comments Coronavirus (PCR) (test code = Coronavirus (PCR)) NOT DETECTED NOTD ETECTED SARS-CoV-2 PCRHologic Aptima SARS-CoV-2 assay is a nucleic amplification test in tended for the qualitative detection of RNA from SARS-CoV-2 from nasopharyngeal ([employer]ATOR) specimens. It is used under Emergency Use Authorization (EUA) by FDA.A posi tive result is indicative of the presence of SARS-CoV-2 RNA. Clinical correlatio n with patient history and other diagnostic information is necessary to determin e patient infection status.A negative (Not Detected) result does not preclude SA RS-CoV-2 infection. Clinical Correlation with patient history and other diagnost ic information should be used in patient management decisions.Invalid: Unable to generate a valid result on this specimen. Please submit a new specimen for repr at testing oc clinically indicated.Tesing performed by:[facility] Laboratory Services3 [facility] [id number], Ruben castillo MD, PhDCHI [facility] BrookCT CHEST [id number] 21:39:00 [facility] [address] [address] Patient Name: DUKE AUGUSTINE MR #: [id number] : 1945 Age/Sex: 75/F Req #: [id number] Adm Physician: ALONDRA MOREIRA MD Ordered by: DA RM MD Report #: [id number] Location: MED/SURG3 Room/Bed: [facility] Procedure: [id number] CT/CT CHEST WO Exam Date: 03/14/20 Exam Time: 2100 REPORT STATUS: Signed EXAM: CT Chest WITHOUT co ntrast INDICATION: Wound COMPARISON: Abdominal CT 03/08/2019; chest CT 08/25/2018 TECHNIQUE: Chest was scanned utilizing a multidetector helical scanner from the lung apex through the level of the adrenal glands without ad ministration of IV contrast. Absence of intravenous contrast decreases sensiti vity for detection of lymphadenopathy and vascular pathology. Coronal and sagi ttal reformations were obtained. Routine protocol was performed. IV CON TRAST: None COMPLICATIONS: None RADIATION DOSE: Total DLP: 541 mGy*cm Estimated effective dose: (DLP x 0.014 x size factor) mSv CTDIvol has been reviewed. It is below the limits set by the Radiation Prot ocol Committee (RPC). Dose modulation, iterative reconstruction, and/or w eight based adjustment of the mA/kV was utilized to reduce the radiation dose to as low as reasonably achievable. FINDINGS: LINES/ TUB ES: Right chest wall cardiac device with lead in the right ventricle.. ROMEO NGS AND AIRWAYS: Mild smooth bronchial wall thickening.. Dilated pulmonary art eries. Mild interlobular septal thickening. Left basilar atelectasis. Mild thi ckening of the pulmonary fissures. PLEURA: Trace fluid in the left intr apulmonary fissure. No pneumothorax. HEART AND MEDIASTINUM: The thyroid gla nd is normal. No mediastinal, hilar or axillary lymphadenopathy. Triple vess el coronary calcifications. Calcifications of the aortic valve and mitral tigre ronaldo. Mild cardio mainly. Aortic calcifications. UPPER ABDOMEN: Unremarkab le BONES: Dehiscent of the sternotomy with multiple fractured sternotomy w ires. Degenerative changes. Osseous demineralization. A tip of a mid sternal fractured sternotomy wire abuts the lower anterior pericardium. SOFT TISSU ES: Soft tissue edema overlying the sternotomy dehiscence. IMPRESSION: Sternotomy dehiscence with surrounding subcutaneous inflammation and subtle lower anterior mediastinal inflammation. No discrete fluid collection. A tip of a mid sternal fractured sternotomy wire abuts the lower anterior pericardium. Mild cardio megaly and mild pulmonary interstitial edema. Signed by: Angelo Wolfe DO on 03/14/2020 9:48 PM Dictated By: ANGELO WOLFE DO 47 Transcribed By: JEANETTE on 03/14/202147 COPY TO: DA RM MD Erythrocyte sedimentation rate by Westergren nnhzul4457-69-92 20:35:00* Test Item Value Reference Range Interpretation Comments Erythrocyte Sedimentation Rate (test code = 4537-7) 78 0- 20 [facility] or plasma C reactive protein measurement (mass/volume)2020-03-14 20:35:00* Test Item Value Reference Range Interpretation Comments C-Reactive Protein (test code = 1988-5) 34 0-10 Performed at: - [facility] [id number] Director: Irvin Mayorga MD, Phone: [phone] Health Hug[facility]y Hospital [facility] SouthBlood krmpwwv3549-10-93 20:35:00* Test Item Value Reference Range Interpretation Comments Blood Culture (test code = 86226228) NO GROWTH AFTER 5 DAYS, FINAL REPORT [facility] SouthAFB CULTURE + SMEAR (NON-SPUTUM) 2020-02-20 14:46:00* Test Item Value Reference Range Interpretation Comments CULTURE (BEAKER) (test code = 1095) No acid-fast bacilli isolate d in 42 days AFB SMEAR (BEAKER) (test code = 994) No acid fast bacilli seen AFB CULTURE + SMEAR (NON-SPUTUM)2020-02-20 14:45:00* Test Item Value Reference Range Interpretation Comments Result (test code = 6463-4) No acid-fast bacilli isolated in 42 day s AFB Smear (test code = 49454-5) No acid fast bacilli seen [facility] (NON-SPUTUM)2020-02-20 14:45:00 * Test Item Value Reference Range Interpretation Comments CULTURE (BEAKER) (test code = 1095) No acid-fast bacilli isolate d in 42 days AFB SMEAR (BEAKER) (test code = 994) No acid fast bacilli seen AFB CULTURE + SMEAR (NON-SPUTUM)2020-02-20 14:45:00* Test Item Value Reference Range Interpretation Comments CULTURE (BEAKER) (test code = 1095) No acid-fast bacilli isolate d in 42 days AFB SMEAR (BEAKER) (test code = 994) No acid fast bacilli seen Fungus culture + [id number] 16:53:00* Test Item Value Reference Range Interpretation Comments Result (test code = 6463-4) No fungus isolated in 28 days Fungus Smear (test code = 1406) No fungi seen [facility] + [id number] 16:53:00* Test Item Value Reference Range Interpretation Comments CULTURE (BEAKER) (test code = 1095) No fungus isolated in 28 days FUNGUS SMEAR (BEAKER) (test code = 1406) No fungi seen FUNGUS CULTURE + [id number] 16:53:00* Test Item Value Reference Range Interpretation Comments CULTURE (BEAKER) (test code = 1095) No fungus isolated in 28 days FUNGUS SMEAR (BEAKER) (test code = 1406) No fungi seen FUNGUS CULTURE + [id number] 16:53:00* Test Item Value Reference Range Interpretation Comments CULTURE (BEAKER) (test code = 1095) No fungus isolated in 28 days FUNGUS SMEAR (BEAKER) (test code = 1406) No fungi seen Anaerobic mbgbkkj0517-69-08 11:28:00* Test Item Value Reference Range Interpretation Comments Result (test code = 6463-4) No anaerobes isolated [facility] [id number] 11:28:00* Test Item Value Reference Range Interpretation Comments CULTURE (BEAKER) (test code = 1095) No anaerobes isolated ANAEROBIC [id number] 11:28:00* Test Item Value Reference Range Interpretation Comments CULTURE (BEAKER) (test code = 1095) No anaerobes isolated CBC with platelet count + automated [id number] 06:59:00* Test Item Value Reference Range Interpretation Comments WBC (test code = 6690-2) 6.6 3.5- 10.5 K/L RBC (test code = 789-8) 2.73 3.93- 5.22 M/L L MCHC (test code = 786-4) 30.6 32.2- 35.5 GM/DL L Hematocrit (test code = 4544-3) 27.1 % 34.1-44.9 L MCV (test code = 787-2) 99.3 fL 79.4-94.8 H MCH (test code = 785-6) 30.4 pg 25.6-32.2 RDW (test code = 788-0) 16.1 % 11.7-14.4 H Platelets (test code = 777-3) 136 150- 450 K/CU MM L MPV (test code = 34330-8) 10.5 fL 9.4-12.3 nRBC (test code = 413) 0 0- 0 /100 WBC % Neutros (test code = 429) 48 % % Lymphs (test code = 430) 32 % % Monos (test code = 431) 8 % % Eos (test code = 432) 12 % % Baso (test code = 437) 1 % # Neutros (test code = 670) 3.13 1.56- 6.13 K/L # Lymphs (test code = 414) 2.07 1.18- 3.74 K/L # Monos (test code = 415) 0.53 0.24- 0.36 K/L H # Eos (test code = 416) 0.78 0.04- 0.36 K/L H # Baso (test code = 417) 0.04 0.01- 0.08 K/L Immature Granulocytes-Relative (test code = 2801) 0 % 0-1 Lab Interpretation (test code = 65169-3) Abnormal [facility] W/PLT COUNT & AUTO [id number] 06:59:00* Test Item Value Reference Range Interpretation Comments WHITE BLOOD CELL COUNT (BEAKER) (test code = 775) 6.6 K/ L 3.5- 10.5 RED BLOOD CELL COUNT (BEAKER) (test code = 761) 2.73 M/ L 3.93-5 .22 L HEMOGLOBIN (BEAKER) (test code = 410) 8.3 GM/DL 11.2-15.7 L HEMATOCRIT (BEAKER) (test code = 411) 27.1 % 34.1-44.9 L MEAN CORPUSCULAR VOLUME (BEAKER) (test code = 753) 99.3 fL 79. 4-94.8 H MEAN CORPUSCULAR HEMOGLOBIN (BEAKER) (test code = 751) 30.4 pg 25.6-32.2 MEAN CORPUSCULAR HEMOGLOBIN CONC (BEAKER) (test code = 752) 30.6 GM/DL 32.2-35.5 L RED CELL DISTRIBUTION WIDTH (BEAKER) (test code = 412) 16.1 % 11.7-14.4 H PLATELET COUNT (BEAKER) (test code = 756) 136 K/CU MM 150-450 L MEAN PLATELET VOLUME (BEAKER) (test code = 754) 10.5 fL 9.4-12 .3 NUCLEATED RED BLOOD CELLS (BEAKER) (test code = 413) 0 /100 WBC 0 -0 NEUTROPHILS RELATIVE PERCENT (BEAKER) (test code = 429) 48 % LYMPHOCYTES RELATIVE PERCENT (BEAKER) (test code = 430) 32 % MONOCYTES RELATIVE PERCENT (BEAKER) (test code = 431) 8 % EOSINOPHILS RELATIVE PERCENT (BEAKER) (test code = 432) 12 % BASOPHILS RELATIVE PERCENT (BEAKER) (test code = 437) 1 % NEUTROPHILS ABSOLUTE COUNT (BEAKER) (test code = 670) 3.13 K/ L 1.56-6.13 LYMPHOCYTES ABSOLUTE COUNT (BEAKER) (test code = 414) 2.07 K/ L 1.18-3.74 MONOCYTES ABSOLUTE COUNT (BEAKER) (test code = 415) 0.53 K/ L 0. 24-0.36 H EOSINOPHILS ABSOLUTE COUNT (BEAKER) (test code = 416) 0.78 K/ L 0.04-0.36 H BASOPHILS ABSOLUTE COUNT (BEAKER) (test code = 417) 0.04 K/ L 0. 01-0.08 IMMATURE GRANULOCYTES-RELATIVE PERCENT (BEAKER) (test code = 2801) 0 % 0-1 Basic Metabolic [id number] 06:48:00* Test Item Value Reference Range Interpretation Comments Sodium (test code = 2951-2) 138 meq/L 136-145 Potassium (test code = 2823-3) 4.7 meq/L 3.5-5.1 Chloride (test code = 2075-0) 102 meq/L 98-107 CO2 (test code = 8-9) 32 meq/L 22-29 H BUN (test code = 3094-0) 45 mg/dL 7-21 H Creatinine (test code = 2160-0) 1.88 mg/dL 0.57-1.25 H Glucose (test code = 2345-7) 88 mg/dL 70-105 Calcium (test code = 70072-5) 9.2 mg/dL 8.4-10.2 EGFR (test code = 32000-4) I NSUFFICIENT CLINICAL DATA TO CALCULATE ESTIMATED GFR. JEANINE (test code = JEANINE) Car Shakeout Operator ID - EDASI Lab Interpretation (test code = 02202-4) Abnormal [facility] METABOLIC [id number] 06:48:00* Test Item Value Reference Range Interpretation Comments SODIUM (BEAKER) (test code = 381) 138 meq/L 136-145 POTASSIUM (BEAKER) (test code = 379) 4.7 meq/L 3.5-5.1 CHLORIDE (BEAKER) (test code = 382) 102 meq/L 98-107 CO2 (BEAKER) (test code = 355) 32 meq/L 22-29 H BLOOD UREA NITROGEN (BEAKER) (test code = 354) 45 mg/dL 7-21 H CREATININE (BEAKER) (test code = 358) 1.88 mg/dL 0.57-1.25 H GLUCOSE RANDOM (BEAKER) (test code = 652) 88 mg/dL 70-105 CALCIUM (BEAKER) (test code = 697) 9.2 mg/dL 8.4-10.2 EGFR (BEAKER) (test code = 1092) INSUFFICIENT CLINICAL DATA TO CALCULATE ESTIMATED GFR. Car Shakeout Operator ID - [id number] 06:47:00* Test Item Value Reference Range Interpretation Comments Magnesium (test code = 94614-9) 2.5 mg/dL 1.6-2.6 JEANINE (test code = JEANINE) Car Shakeout Operator ID - EDASI Lab Interpretation (test code = 93141-2) [facility] 06:47[facility]* Test Item Value Reference Range Interpretation Comments Phosphorus (test code = 2777-1) 2.8 mg/dL 2.3-4.7 JEANINE (test code = JEANINE) Car Shakeout Operator ID - EDASI Lab Interpretation (test code = 64375-4) Normal [facility]-07-31 06:47:00* Test Item Value Reference Range Interpretation Comments PHOSPHORUS (BEAKER) (test code = 604) 2.8 mg/dL 2.3-4.7 Car Shakeout Operator ID - [id number] 06:47:00* Test Item Value Reference Range Interpretation Comments MAGNESIUM (BEAKER) (test code = 627) 2.5 mg/dL 1.6-2.6 Car Shakeout Operator ID - EDASIPOC-Glucose [id number] 21:38:00* Test Item Value Reference Range Interpretation Comments POC-Glucose Meter (test code = 1538) 89 mg/dL 70-110 : TESTED AT [facility] [address], [address]: Car Shakeout Operator/Crew Leader ID = [id number] for Mine Trevino Lab Interpretation (test code = 90460-7) Normal [facility] [id number] 21:38:00* Test Item Value Reference Range Interpretation Comments POC-GLUCOSE METER (BEAKER) (test code = 1538) 89 mg/dL 70-110 : TESTED AT [place] [id number], [address]: Car Shakeout Operator/Crew Leader ID = [id number] for Mine Trevino ANAEROBIC [id number] 18:20:00* Test Item Value Reference Range Interpretation Comments CULTURE (BEAKER) (test code = 1095) No anaerobes isolated POCT-GLUCOSE [id number] 16:56:00* Test Item Value Reference Range Interpretation Comments POC-GLUCOSE METER (BEAKER) (test code = 1538) 111 mg/dL 70-110 H : TESTED AT [address], [address]: Car Shakeout Operator/Crew Leader ID = [id number] for ORBRYANT GEOVANNI POCT-GLUCOSE [id number] 12:20:00* Test Item Value Reference Range Interpretation Comments POC-GLUCOSE METER (BEAKER) (test code = 1538) 91 mg/dL 70-110 : TESTED AT [address], [address]: Car Shakeout Operator/Crew Leader ID = [id number] for ORHOANGBERONICA, GEOVANNI POCT-GLUCOSE [id number] 07:53:00* Test Item Value Reference Range Interpretation Comments POC-GLUCOSE METER (BEAKER) (test code = 1538) 90 mg/dL 70-110 : TESTED AT [address], [address]: Car Shakeout Operator/Crew Leader ID = [id number] for ORBRYANT, GEOVANNI RAD, CHEST, 1 VIEW, NON [id number] 06:23:00Reason for exam:->ICDShould this be performed at the bedside?->YesFINAL REPORT CLINICAL INDICATION: ICD placement Comparison: 12/28/2019 [...] right-sided PICC line remains in place. Signed: Denny Leon Verified Date/Time: 01/11/2020 06:23:06 chest 1 view portable / bedside 2020-01-11 06:23:00Interface, External Ris In - 01/11/2020 6:25 AM CDTFINAL REPORT CLINICAL INDICATION: ICD placement Comparison: 12/28/2019 [...] right-sided PICC line remains in place. Signed: Denny Leon MDReport Verified Date/Time: 01/11/2020 06:23:06 [facility] W/PLT COUNT & AUTO DIFFERENTIAL 2020-01-11 06:01:00* Test Item Value Reference Range Interpretation Comments WHITE BLOOD CELL COUNT (BEAKER) (test code = 775) 6.0 K/ L 3.5- 10.5 RED BLOOD CELL COUNT (BEAKER) (test code = 761) 2.82 M/ L 3.93-5 .22 L HEMOGLOBIN (BEAKER) (test code = 410) 8.4 GM/DL 11.2-15.7 L HEMATOCRIT (BEAKER) (test code = 411) 28.2 % 34.1-44.9 L MEAN CORPUSCULAR VOLUME (BEAKER) (test code = 753) 100.0 fL 79. 4-94.8 H MEAN CORPUSCULAR HEMOGLOBIN (BEAKER) (test code = 751) 29.8 pg 25.6-32.2 MEAN CORPUSCULAR HEMOGLOBIN CONC (BEAKER) (test code = 752) 29.8 GM/DL 32.2-35.5 L RED CELL DISTRIBUTION WIDTH (BEAKER) (test code = 412) 16.3 % 11.7-14.4 H PLATELET COUNT (BEAKER) (test code = 756) 135 K/CU MM 150-450 L MEAN PLATELET VOLUME (BEAKER) (test code = 754) 10.7 fL 9.4-12 .3 NUCLEATED RED BLOOD CELLS (BEAKER) (test code = 413) 0 /100 WBC 0 -0 NEUTROPHILS RELATIVE PERCENT (BEAKER) (test code = 429) 55 % LYMPHOCYTES RELATIVE PERCENT (BEAKER) (test code = 430) 26 % MONOCYTES RELATIVE PERCENT (BEAKER) (test code = 431) 8 % EOSINOPHILS RELATIVE PERCENT (BEAKER) (test code = 432) 10 % BASOPHILS RELATIVE PERCENT (BEAKER) (test code = 437) 1 % NEUTROPHILS ABSOLUTE COUNT (BEAKER) (test code = 670) 3.35 K/ L 1.56-6.13 LYMPHOCYTES ABSOLUTE COUNT (BEAKER) (test code = 414) 1.56 K/ L 1.18-3.74 MONOCYTES ABSOLUTE COUNT (BEAKER) (test code = 415) 0.47 K/ L 0. 24-0.36 H EOSINOPHILS ABSOLUTE COUNT (BEAKER) (test code = 416) 0.62 K/ L 0.04-0.36 H BASOPHILS ABSOLUTE COUNT (BEAKER) (test code = 417) 0.03 K/ L 0. 01-0.08 IMMATURE GRANULOCYTES-RELATIVE PERCENT (BEAKER) (test code = 2801) 0 % 0-1 [id number] 05:48:00* Test Item Value Reference Range Interpretation Comments MAGNESIUM (BEAKER) (test code = 627) 2.5 mg/dL 1.6-2.6 Specimen slightly hemolyzed Car Shakeout Operator ID - [id number] 05:48:00* Test Item Value Reference Range Interpretation Comments PHOSPHORUS (BEAKER) (test code = 604) 3.2 mg/dL 2.3-4.7 Specimen slightly hemolyzed Car Shakeout Operator ID - EDASIBASIC METABOLIC [id number] 05:48:00* Test Item Value Reference Range Interpretation Comments SODIUM (BEAKER) (test code = 381) 139 meq/L 136-145 POTASSIUM (BEAKER) (test code = 379) 4.8 meq/L 3.5-5.1 Specimen slightly hemolyzed CHLORIDE (BEAKER) (test code = 382) 103 meq/L 98-107 CO2 (BEAKER) (test code = 355) 33 meq/L 22-29 H BLOOD UREA NITROGEN (BEAKER) (test code = 354) 48 mg/dL 7-21 H CREATININE (BEAKER) (test code = 358) 1.92 mg/dL 0.57-1.25 H Specimen slightly hemolyzed GLUCOSE RANDOM (BEAKER) (test code = 652) 86 mg/dL 70-105 CALCIUM (BEAKER) (test code = 697) 9.2 mg/dL 8.4-10.2 EGFR (BEAKER) (test code = 1092) INSUFFICIENT CLINICAL DATA TO CALCULATE ESTIMATED GFR. Car Shakeout Operator ID - EDASIPreparkathy Leuko-Red [id number] 23:54:00* Test Item Value Reference Range Interpretation Comments CROSSMATCH (test code = 2264) COMPATIBLE Unit ABO (test code = 1434876) O Pos UNIT NUMBER (test code = 934-0) [id number] Status (test code = 5020076) TX_TIMEINCHART Blood Bank Product (test code = 2263) RED BLOOD CELLS PRODUCT CODE (test code = 933-2) [id number] [facility] [id number] 20:45:00* Test Item Value Reference Range Interpretation Comments POC-GLUCOSE METER (BEAKER) (test code = 1538) 115 mg/dL 70-110 H : TESTED AT [address], [address]: Car Shakeout Operator/Crew Leader ID = [id number] for Mine Trevino POCT-GLUCOSE [id number] 17:22:00* Test Item Value Reference Range Interpretation Comments POC-GLUCOSE METER (BEAKER) (test code = 1538) 130 mg/dL 70-110 H : TESTED AT [address], [address]: Car Shakeout Operator/Crew Leader ID = [id number] for SONAL MORALES POCT-GLUCOSE [id number] 12:23:00* Test Item Value Reference Range Interpretation Comments POC-GLUCOSE METER (BEAKER) (test code = 1538) 86 mg/dL 70-110 : TESTED AT [address], [address]: Car Shakeout Operator/Crew Leader ID = [id number] for SNOAL MORALES Surgically obtained culture + gram [id number] 11:36:00* Test Item Value Reference Range Interpretation Comments Result (test code = 6463-4) No growth Gram Stain Result (test code = 1123) No organisms seen [facility]AM [id number] 11:36:00* Test Item Value Reference Range Interpretation Comments CULTURE (BEAKER) (test code = 1095) No growth GRAM STAIN RESULT (BEAKER) (test code = 1123) No WBCs GRAM STAIN RESULT (BEAKER) (test code = 46436) No organisms seen Wound culture + gram [id number] 10:00:00* Test Item Value Reference Range Interpretation Comments Result (test code = 6463-4) No growth Gram Stain Result (test code = 1123) No organisms seen [facility] [id number] 10:00:00* Test Item Value Reference Range Interpretation Comments CULTURE (BEAKER) (test code = 1095) No growth GRAM STAIN RESULT (BEAKER) (test code = 1123) No WBCs GRAM STAIN RESULT (BEAKER) (test code = 65794) No organisms seen WOUND CULTURE + GRAM [id number] 09:59:00* Test Item Value Reference Range Interpretation Comments CULTURE (BEAKER) (test code = 1095) No growth GRAM STAIN RESULT (BEAKER) (test code = 1123) No WBCs GRAM STAIN RESULT (BEAKER) (test code = 64956) No organisms seen CBC W/PLT COUNT & AUTO [id number] 05:56:00* Test Item Value Reference Range Interpretation Comments WHITE BLOOD CELL COUNT (BEAKER) (test code = 775) 5.7 K/ L 3.5- 10.5 RED BLOOD CELL COUNT (BEAKER) (test code = 761) 2.93 M/ L 3.93-5 .22 L HEMOGLOBIN (BEAKER) (test code = 410) 8.7 GM/DL 11.2-15.7 L HEMATOCRIT (BEAKER) (test code = 411) 28.7 % 34.1-44.9 L MEAN CORPUSCULAR VOLUME (BEAKER) (test code = 753) 98.0 fL 79. 4-94.8 H MEAN CORPUSCULAR HEMOGLOBIN (BEAKER) (test code = 751) 29.7 pg 25.6-32.2 MEAN CORPUSCULAR HEMOGLOBIN CONC (BEAKER) (test code = 752) 30.3 GM/DL 32.2-35.5 L RED CELL DISTRIBUTION WIDTH (BEAKER) (test code = 412) 16.2 % 11.7-14.4 H PLATELET COUNT (BEAKER) (test code = 756) 130 K/CU MM 150-450 L MEAN PLATELET VOLUME (BEAKER) (test code = 754) 10.4 fL 9.4-12 .3 NUCLEATED RED BLOOD CELLS (BEAKER) (test code = 413) 0 /100 WBC 0 -0 NEUTROPHILS RELATIVE PERCENT (BEAKER) (test code = 429) 46 % LYMPHOCYTES RELATIVE PERCENT (BEAKER) (test code = 430) 33 % MONOCYTES RELATIVE PERCENT (BEAKER) (test code = 431) 9 % EOSINOPHILS RELATIVE PERCENT (BEAKER) (test code = 432) 12 % BASOPHILS RELATIVE PERCENT (BEAKER) (test code = 437) 1 % NEUTROPHILS ABSOLUTE COUNT (BEAKER) (test code = 670) 2.62 K/ L 1.56-6.13 LYMPHOCYTES ABSOLUTE COUNT (BEAKER) (test code = 414) 1.86 K/ L 1.18-3.74 MONOCYTES ABSOLUTE COUNT (BEAKER) (test code = 415) 0.48 K/ L 0. 24-0.36 H EOSINOPHILS ABSOLUTE COUNT (BEAKER) (test code = 416) 0.67 K/ L 0.04-0.36 H BASOPHILS ABSOLUTE COUNT (BEAKER) (test code = 417) 0.04 K/ L 0. 01-0.08 IMMATURE GRANULOCYTES-RELATIVE PERCENT (BEAKER) (test code = 2801) 0 % 0-1 BASIC METABOLIC [id number] 05:43:00* Test Item Value Reference Range Interpretation Comments SODIUM (BEAKER) (test code = 381) 135 meq/L 136-145 L POTASSIUM (BEAKER) (test code = 379) 4.8 meq/L 3.5-5.1 CHLORIDE (BEAKER) (test code = 382) 98 meq/L 98-107 CO2 (BEAKER) (test code = 355) 31 meq/L 22-29 H BLOOD UREA NITROGEN (BEAKER) (test code = 354) 55 mg/dL 7-21 H CREATININE (BEAKER) (test code = 358) 2.12 mg/dL 0.57-1.25 H GLUCOSE RANDOM (BEAKER) (test code = 652) 99 mg/dL 70-105 CALCIUM (BEAKER) (test code = 697) 9.1 mg/dL 8.4-10.2 EGFR (BEAKER) (test code = 1092) INSUFFICIENT CLINICAL DATA TO CALCULATE ESTIMATED GFR. Car Shakeout Operator ID - PIAYA [id number] 05:11:00* Test Item Value Reference Range Interpretation Comments PHOSPHORUS (BEAKER) (test code = 604) 3.9 mg/dL 2.3-4.7 Car Shakeout Operator ID - LULU [id number] 05:11:00* Test Item Value Reference Range Interpretation Comments MAGNESIUM (BEAKER) (test code = 627) 2.6 mg/dL 1.6-2.6 Car Shakeout Operator ID - LULU LSARS-CoV2/RT-PCR (Asymptomatic ONLY)2020-01-09 23:12:00* Test Item Value Reference Range Interpretation Comments SARS-COV2/RT-PCR (test code = 66074-7) Negative N ot Detected, Negative, See external report for linked test SARS-COV-2 PERFORMING LAB (test code = 53166-4) [facility] RY JEANINE (test code = JEANINE) Negative result for this shantelle t determines that SARS-CoV-2 RNA was not present in the specimen above the Limit of Detection (LOD). However, Negative results do not preclude SARS-CoV-2 infection and should not be used as the sole basis for treatment or patient management decisions. Negative results must be combined with clinical observations, patient history, and epidemiological information. A false negative result may occur if a specimen is improperly collected, transported or handled. A false negative result should be considered if patient's recent exposures or clinical presentation indicate that COVID-19 (SARS-CoV-2) is likely and diagnostic tests for other causes of illness are negative. Re-testing should be considered in cases of suspected false negatives. The limit of detection for this assay is 800 copies/mL. This SARS CoV-2 test is a real-time RT-PCR test intended for the qualitative detection of nucleic acid from SARS-CoV-2 in a nasopharyngeal swab specimen collected from individuals suspected of COVID-19 by their healthcare provider. This test has not been Food and Drug Administration (FDA) cleared or approved. This is a modified version of an approved Emergency Use Authorization (EUA) and is in the process of review by the FDA. Once authorized by the FDA, the issued EUA will be effective until the declaration that circumstances exist justifying the authorization of the emergency use of in vitro diagnostic tests for detection and/or diagnosis of COVID-19 is terminated under Section 564(b)(2) of the Act or the EUA is revoked under Section 564(g) of the Act. Fact Sheet for Healthcare Providers:https://www.[employer]/sites/default/files/product/documents/Fact_Shekathy mccollumy_FS_Queqeoshb_Iozk_LYQK-MnK-8.pdf Fact Sheet for Healthcare Patients:https://www.[employer]/sites/default/files/pro duct/documents/Crci_Qdhgc_Mkqsqoqc_Otnm_TRKO-CaX-5.pdf Performing Laboratory:[facility] [place] [address] [facility] ([facility])2020-01-09 23:12:00* Test Item Value Reference Range Interpretation Comments SARS-COV2/RT-PCR (test code = 3123124) Negative N ot Detected, Negative, See external report for linked test SARS-COV-2 PERFORMING LAB (test code = 6646004) [facility] RY Negative result for this test determines that SARS-CoV-2 RNA was not present in the specimen above the Limit of Detection (LOD). However, Negative results do n ot preclude SARS-CoV-2 infection and should not be used as the sole basis for tr eatment or patient management decisions. Negative results must be combined with clinical observations, patient history, and epidemiological information. A false negative result may occur if a specimen is improperly collected, transported or handled. A false negative result should be considered if patient's recent expo sures or clinical presentation indicate that COVID-19 (SARS-CoV-2) is likely and diagnostic tests for other causes of illness are negative. Re-testing should be considered in cases of suspected false negatives.The limit of detection for this assay is 800 copies/mL.This SARS CoV-2 test is a real-time RT-PCR test intended for the qualitative detection of nucleic acid from SARS-CoV-2 in a nasopharyn geal swab specimen collected from individuals suspected of COVID-19 by their [facility] provider.This test has not been Food and Drug Administration (FDA) clear ed or approved. This is a modified version of an approved Emergency Use Authori zation (EUA) and is in the process of review by the FDA. Once authorized by th e FDA, the issued EUA will be effective until the declaration that circumstances exist justifying the authorization of the emergency use of in vitro diagnostic tests for detection and/or diagnosis of COVID-19 is terminated under Section 564 (b)(2) of the Act or the EUA is revoked under Section 564(g) of the Act.Fact She et for Healthcare Providers:https://www.[employer]/sites/default/files/product/d ocuments/Eulz_Gjldh_YH_Wpjhlppju_Nygs_SKLE-NwQ-7.pdfFact Sheet for Healthcare Pa tients:https://www.[employer]/sites/default/files/product/documents/Fact_Sheet_P ssuxbjk_Qzxl_KSRQ-AbT-6.pdfPerforming Laboratory:[address], [place] [address]IYTT-QYZJGIZ [id number] 21:02:00* Test Item Value Reference Range Interpretation Comments POC-GLUCOSE METER (BEAKER) (test code = 1538) 127 mg/dL 70-110 H : TESTED AT [address], [address]: Car Shakeout Operator/Crew Leader ID = [id number] for LIS GONZALES POCT-GLUCOSE [id number] 17:16:00* Test Item Value Reference Range Interpretation Comments POC-GLUCOSE METER (BEAKER) (test code = 1538) 93 mg/dL 70-110 : TESTED AT [address], [address]: Car Shakeout Operator/Crew Leader ID = [id number] for JOHANNY BRAGG POCT-GLUCOSE [id number] 12:42:00* Test Item Value Reference Range Interpretation Comments POC-GLUCOSE METER (BEAKER) (test code = 1538) 117 mg/dL 70-110 H : TESTED AT [address], [address]: Car Shakeout Operator/Crew Leader ID = [id number] for JOHANNY BRAGG BASIC METABOLIC [id number] 06:49:00* Test Item Value Reference Range Interpretation Comments SODIUM (BEAKER) (test code = 381) 137 meq/L 136-145 POTASSIUM (BEAKER) (test code = 379) 4.7 meq/L 3.5-5.1 CHLORIDE (BEAKER) (test code = 382) 99 meq/L 98-107 CO2 (BEAKER) (test code = 355) 33 meq/L 22-29 H BLOOD UREA NITROGEN (BEAKER) (test code = 354) 49 mg/dL 7-21 H CREATININE (BEAKER) (test code = 358) 2.04 mg/dL 0.57-1.25 H GLUCOSE RANDOM (BEAKER) (test code = 652) 100 mg/dL 70-105 CALCIUM (BEAKER) (test code = 697) 9.1 mg/dL 8.4-10.2 EGFR (BEAKER) (test code = 1092) INSUFFICIENT CLINICAL DATA TO CALCULATE ESTIMATED GFR. Car Shakeout Operator ID - [id number] 06:42:00* Test Item Value Reference Range Interpretation Comments PHOSPHORUS (BEAKER) (test code = 604) 4.3 mg/dL 2.3-4.7 Car Shakeout Operator ID - [id number] 06:42:00* Test Item Value Reference Range Interpretation Comments MAGNESIUM (BEAKER) (test code = 627) 2.6 mg/dL 1.6-2.6 Car Shakeout Operator ID - EDASICBC W/PLT COUNT & AUTO [id number] 06:36:00* Test Item Value Reference Range Interpretation Comments WHITE BLOOD CELL COUNT (BEAKER) (test code = 775) 6.4 K/ L 3.5- 10.5 RED BLOOD CELL COUNT (BEAKER) (test code = 761) 2.40 M/ L 3.93-5 .22 L HEMOGLOBIN (BEAKER) (test code = 410) 7.2 GM/DL 11.2-15.7 L HEMATOCRIT (BEAKER) (test code = 411) 24.0 % 34.1-44.9 L MEAN CORPUSCULAR VOLUME (BEAKER) (test code = 753) 100.0 fL 79. 4-94.8 H MEAN CORPUSCULAR HEMOGLOBIN (BEAKER) (test code = 751) 30.0 pg 25.6-32.2 MEAN CORPUSCULAR HEMOGLOBIN CONC (BEAKER) (test code = 752) 30.0 GM/DL 32.2-35.5 L RED CELL DISTRIBUTION WIDTH (BEAKER) (test code = 412) 16.3 % 11.7-14.4 H PLATELET COUNT (BEAKER) (test code = 756) 140 K/CU MM 150-450 L MEAN PLATELET VOLUME (BEAKER) (test code = 754) 10.3 fL 9.4-12 .3 NUCLEATED RED BLOOD CELLS (BEAKER) (test code = 413) 0 /100 WBC 0 -0 NEUTROPHILS RELATIVE PERCENT (BEAKER) (test code = 429) 55 % LYMPHOCYTES RELATIVE PERCENT (BEAKER) (test code = 430) 27 % MONOCYTES RELATIVE PERCENT (BEAKER) (test code = 431) 8 % EOSINOPHILS RELATIVE PERCENT (BEAKER) (test code = 432) 10 % BASOPHILS RELATIVE PERCENT (BEAKER) (test code = 437) 1 % NEUTROPHILS ABSOLUTE COUNT (BEAKER) (test code = 670) 3.47 K/ L 1.56-6.13 LYMPHOCYTES ABSOLUTE COUNT (BEAKER) (test code = 414) 1.68 K/ L 1.18-3.74 MONOCYTES ABSOLUTE COUNT (BEAKER) (test code = 415) 0.49 K/ L 0. 24-0.36 H EOSINOPHILS ABSOLUTE COUNT (BEAKER) (test code = 416) 0.65 K/ L 0.04-0.36 H BASOPHILS ABSOLUTE COUNT (BEAKER) (test code = 417) 0.05 K/ L 0. 01-0.08 IMMATURE GRANULOCYTES-RELATIVE PERCENT (BEAKER) (test code = 2801) 0 % 0-1 SPIN/CONCENTRATION [id number] 04:12:00* Test Item Value Reference Range Interpretation Comments Concentration charged (test code = 2657) Done [facility] [id number] 04:12:00* Test Item Value Reference Range Interpretation Comments CONCENTRATION CHARGED (BEAKER) (test code = 2657) Done SPIN/CONCENTRATION [id number] 04:12:00* Test Item Value Reference Range Interpretation Comments CONCENTRATION CHARGED (BEAKER) (test code = 2657) Done SPIN/CONCENTRATION [id number] 04:12:00* Test Item Value Reference Range Interpretation Comments CONCENTRATION CHARGED (BEAKER) (test code = 2657) Done Type and screen, [id number] 06:04:00* Test Item Value Reference Range Interpretation Comments ABO/RH AUTOMATED (BEAKER) (test code = 2260) O POSITIVE Ab Scrn (test code = 890-4) NEGATIVE [facility] METABOLIC [id number] 06:01:00* Test Item Value Reference Range Interpretation Comments SODIUM (BEAKER) (test code = 381) 134 meq/L 136-145 L POTASSIUM (BEAKER) (test code = 379) 4.7 meq/L 3.5-5.1 CHLORIDE (BEAKER) (test code = 382) 96 meq/L 98-107 L CO2 (BEAKER) (test code = 355) 31 meq/L 22-29 H BLOOD UREA NITROGEN (BEAKER) (test code = 354) 54 mg/dL 7-21 H CREATININE (BEAKER) (test code = 358) 2.18 mg/dL 0.57-1.25 H GLUCOSE RANDOM (BEAKER) (test code = 652) 104 mg/dL 70-105 CALCIUM (BEAKER) (test code = 697) 9.3 mg/dL 8.4-10.2 EGFR (BEAKER) (test code = 1092) INSUFFICIENT CLINICAL DATA TO CALCULATE ESTIMATED GFR. [employer] Operator ID - [id number] 06:00:00* Test Item Value Reference Range Interpretation Comments PHOSPHORUS (BEAKER) (test code = 604) 4.2 mg/dL 2.3-4.7 [employer] Operator ID - [id number] 06:00:00* Test Item Value Reference Range Interpretation Comments MAGNESIUM (BEAKER) (test code = 627) 2.6 mg/dL 1.6-2.6 [employer] Operator ID - [id number] W/PLT COUNT & AUTO [id number] 05:26:00* Test Item Value Reference Range Interpretation Comments WHITE BLOOD CELL COUNT (BEAKER) (test code = 775) 6.7 K/ L 3.5- 10.5 RED BLOOD CELL COUNT (BEAKER) (test code = 761) 2.42 M/ L 3.93-5 .22 L HEMOGLOBIN (BEAKER) (test code = 410) 7.2 GM/DL 11.2-15.7 L HEMATOCRIT (BEAKER) (test code = 411) 24.0 % 34.1-44.9 L MEAN CORPUSCULAR VOLUME (BEAKER) (test code = 753) 99.2 fL 79. 4-94.8 H MEAN CORPUSCULAR HEMOGLOBIN (BEAKER) (test code = 751) 29.8 pg 25.6-32.2 MEAN CORPUSCULAR HEMOGLOBIN CONC (BEAKER) (test code = 752) 30.0 GM/DL 32.2-35.5 L RED CELL DISTRIBUTION WIDTH (BEAKER) (test code = 412) 16.4 % 11.7-14.4 H PLATELET COUNT (BEAKER) (test code = 756) 133 K/CU MM 150-450 L MEAN PLATELET VOLUME (BEAKER) (test code = 754) 10.4 fL 9.4-12 .3 NUCLEATED RED BLOOD CELLS (BEAKER) (test code = 413) 0 /100 WBC 0 -0 NEUTROPHILS RELATIVE PERCENT (BEAKER) (test code = 429) 48 % LYMPHOCYTES RELATIVE PERCENT (BEAKER) (test code = 430) 33 % MONOCYTES RELATIVE PERCENT (BEAKER) (test code = 431) 9 % EOSINOPHILS RELATIVE PERCENT (BEAKER) (test code = 432) 10 % BASOPHILS RELATIVE PERCENT (BEAKER) (test code = 437) 0 % NEUTROPHILS ABSOLUTE COUNT (BEAKER) (test code = 670) 3.21 K/ L 1.56-6.13 LYMPHOCYTES ABSOLUTE COUNT (BEAKER) (test code = 414) 2.18 K/ L 1.18-3.74 MONOCYTES ABSOLUTE COUNT (BEAKER) (test code = 415) 0.59 K/ L 0. 24-0.36 H EOSINOPHILS ABSOLUTE COUNT (BEAKER) (test code = 416) 0.65 K/ L 0.04-0.36 H BASOPHILS ABSOLUTE COUNT (BEAKER) (test code = 417) 0.03 K/ L 0. 01-0.08 IMMATURE GRANULOCYTES-RELATIVE PERCENT (BEAKER) (test code = 2801) 0 % 0-1 BASIC METABOLIC [id number] 06:47:00* Test Item Value Reference Range Interpretation Comments SODIUM (BEAKER) (test code = 381) 137 meq/L 136-145 POTASSIUM (BEAKER) (test code = 379) 4.5 meq/L 3.5-5.1 CHLORIDE (BEAKER) (test code = 382) 97 meq/L 98-107 L CO2 (BEAKER) (test code = 355) 34 meq/L 22-29 H BLOOD UREA NITROGEN (BEAKER) (test code = 354) 45 mg/dL 7-21 H CREATININE (BEAKER) (test code = 358) 2.01 mg/dL 0.57-1.25 H GLUCOSE RANDOM (BEAKER) (test code = 652) 95 mg/dL 70-105 CALCIUM (BEAKER) (test code = 697) 9.3 mg/dL 8.4-10.2 EGFR (BEAKER) (test code = 1092) INSUFFICIENT CLINICAL DATA TO CALCULATE ESTIMATED GFR. Car Shakeout Operator ID - [id number] 06:44:00* Test Item Value Reference Range Interpretation Comments PHOSPHORUS (BEAKER) (test code = 604) 4.1 mg/dL 2.3-4.7 Car Shakeout Operator ID - [id number] 06:44:00* Test Item Value Reference Range Interpretation Comments MAGNESIUM (BEAKER) (test code = 627) 2.4 mg/dL 1.6-2.6 Car Shakeout Operator ID - EDASICBC W/PLT COUNT & AUTO [id number] 06:33:00* Test Item Value Reference Range Interpretation Comments WHITE BLOOD CELL COUNT (BEAKER) (test code = 775) 6.2 K/ L 3.5- 10.5 RED BLOOD CELL COUNT (BEAKER) (test code = 761) 2.50 M/ L 3.93-5 .22 L HEMOGLOBIN (BEAKER) (test code = 410) 7.6 GM/DL 11.2-15.7 L HEMATOCRIT (BEAKER) (test code = 411) 24.8 % 34.1-44.9 L MEAN CORPUSCULAR VOLUME (BEAKER) (test code = 753) 99.2 fL 79. 4-94.8 H MEAN CORPUSCULAR HEMOGLOBIN (BEAKER) (test code = 751) 30.4 pg 25.6-32.2 MEAN CORPUSCULAR HEMOGLOBIN CONC (BEAKER) (test code = 752) 30.6 GM/DL 32.2-35.5 L RED CELL DISTRIBUTION WIDTH (BEAKER) (test code = 412) 16.3 % 11.7-14.4 H PLATELET COUNT (BEAKER) (test code = 756) 140 K/CU MM 150-450 L MEAN PLATELET VOLUME (BEAKER) (test code = 754) 10.0 fL 9.4-12 .3 NUCLEATED RED BLOOD CELLS (BEAKER) (test code = 413) 0 /100 WBC 0 -0 NEUTROPHILS RELATIVE PERCENT (BEAKER) (test code = 429) 51 % LYMPHOCYTES RELATIVE PERCENT (BEAKER) (test code = 430) 30 % MONOCYTES RELATIVE PERCENT (BEAKER) (test code = 431) 8 % EOSINOPHILS RELATIVE PERCENT (BEAKER) (test code = 432) 10 % BASOPHILS RELATIVE PERCENT (BEAKER) (test code = 437) 1 % NEUTROPHILS ABSOLUTE COUNT (BEAKER) (test code = 670) 3.18 K/ L 1.56-6.13 LYMPHOCYTES ABSOLUTE COUNT (BEAKER) (test code = 414) 1.84 K/ L 1.18-3.74 MONOCYTES ABSOLUTE COUNT (BEAKER) (test code = 415) 0.52 K/ L 0. 24-0.36 H EOSINOPHILS ABSOLUTE COUNT (BEAKER) (test code = 416) 0.60 K/ L 0.04-0.36 H BASOPHILS ABSOLUTE COUNT (BEAKER) (test code = 417) 0.04 K/ L 0. 01-0.08 IMMATURE GRANULOCYTES-RELATIVE PERCENT (BEAKER) (test code = 2801) 0 % 0-1 Vancomycin level, [id number] 18:32:00* Test Item Value Reference Range Interpretation Comments Vancomycin Tr (test code = 4092-3) 18.1 ug/mL 10-20 JEANINE (test code = JEANINE) Car Shakeout Operator ID - DB Lab Interpretation (test code = 16466-6) [facility], [id number] 18:32:00* Test Item Value Reference Range Interpretation Comments VANCOMYCIN TROUGH (BEAKER) (test code = 522) 18.1 ug/mL 10.0-20.0 Car Shakeout Operator ID - DBPOCT-GLUCOSE [id number] 17:08:00* Test Item Value Reference Range Interpretation Comments POC-GLUCOSE METER (BEAKER) (test code = 1538) 116 mg/dL 70-110 H : TESTED AT [place] [id number] [facility], [address]: Car Shakeout Operator/Crew Leader ID = [id number] for ADALGISA SYKES POCT-GLUCOSE [id number] 12:57:00* Test Item Value Reference Range Interpretation Comments POC-GLUCOSE METER (BEAKER) (test code = 1538) 91 mg/dL 70-110 : TESTED AT [place] [id number] [facility], [address]: Car Shakeout Operator/Crew Leader ID = [id number] for ADALGISA SYKES POCT-GLUCOSE [id number] 08:57:00* Test Item Value Reference Range Interpretation Comments POC-GLUCOSE METER (BEAKER) (test code = 1538) 107 mg/dL 70-110 : TESTED AT [facility] [address] [facility], [address]: Car Shakeout Operator/Crew Leader ID = [id number] for ADALGISA SYKES POCT-GLUCOSE [id number] 07:54:00* Test Item Value Reference Range Interpretation Comments POC-GLUCOSE METER (BEAKER) (test code = 1538) 67 mg/dL 70-110 L : TESTED AT [place] [id number] [facility], [address]: Car Shakeout Operator/Crew Leader ID = [id number] for ADALGISA SYKES BASIC METABOLIC [id number] 05:35:00* Test Item Value Reference Range Interpretation Comments SODIUM (BEAKER) (test code = 381) 135 meq/L 136-145 L POTASSIUM (BEAKER) (test code = 379) 4.5 meq/L 3.5-5.1 CHLORIDE (BEAKER) (test code = 382) 98 meq/L 98-107 CO2 (BEAKER) (test code = 355) 32 meq/L 22-29 H BLOOD UREA NITROGEN (BEAKER) (test code = 354) 45 mg/dL 7-21 H CREATININE (BEAKER) (test code = 358) 2.10 mg/dL 0.57-1.25 H GLUCOSE RANDOM (BEAKER) (test code = 652) 92 mg/dL 70-105 CALCIUM (BEAKER) (test code = 697) 9.9 mg/dL 8.4-10.2 EGFR (BEAKER) (test code = 1092) INSUFFICIENT CLINICAL DATA TO CALCULATE ESTIMATED GFR. Car Shakeout Operator ID - [id number] 05:28:00* Test Item Value Reference Range Interpretation Comments PHOSPHORUS (BEAKER) (test code = 604) 4.3 mg/dL 2.3-4.7 Car Shakeout Operator ID - [id number] 05:28:00* Test Item Value Reference Range Interpretation Comments MAGNESIUM (BEAKER) (test code = 627) 2.4 mg/dL 1.6-2.6 Car Shakeout Operator ID - DBCBC W/PLT COUNT & AUTO [id number] 04:56:00* Test Item Value Reference Range Interpretation Comments WHITE BLOOD CELL COUNT (BEAKER) (test code = 775) 8.1 K/ L 3.5- 10.5 RED BLOOD CELL COUNT (BEAKER) (test code = 761) 2.60 M/ L 3.93-5 .22 L HEMOGLOBIN (BEAKER) (test code = 410) 8.0 GM/DL 11.2-15.7 L HEMATOCRIT (BEAKER) (test code = 411) 25.8 % 34.1-44.9 L MEAN CORPUSCULAR VOLUME (BEAKER) (test code = 753) 99.2 fL 79. 4-94.8 H MEAN CORPUSCULAR HEMOGLOBIN (BEAKER) (test code = 751) 30.8 pg 25.6-32.2 MEAN CORPUSCULAR HEMOGLOBIN CONC (BEAKER) (test code = 752) 31.0 GM/DL 32.2-35.5 L RED CELL DISTRIBUTION WIDTH (BEAKER) (test code = 412) 16.5 % 11.7-14.4 H PLATELET COUNT (BEAKER) (test code = 756) 169 K/CU MM 150-450 MEAN PLATELET VOLUME (BEAKER) (test code = 754) 10.4 fL 9.4-12 .3 NUCLEATED RED BLOOD CELLS (BEAKER) (test code = 413) 0 /100 WBC 0 -0 NEUTROPHILS RELATIVE PERCENT (BEAKER) (test code = 429) 61 % LYMPHOCYTES RELATIVE PERCENT (BEAKER) (test code = 430) 26 % MONOCYTES RELATIVE PERCENT (BEAKER) (test code = 431) 7 % EOSINOPHILS RELATIVE PERCENT (BEAKER) (test code = 432) 5 % BASOPHILS RELATIVE PERCENT (BEAKER) (test code = 437) 1 % NEUTROPHILS ABSOLUTE COUNT (BEAKER) (test code = 670) 4.93 K/ L 1.56-6.13 LYMPHOCYTES ABSOLUTE COUNT (BEAKER) (test code = 414) 2.10 K/ L 1.18-3.74 MONOCYTES ABSOLUTE COUNT (BEAKER) (test code = 415) 0.60 K/ L 0. 24-0.36 H EOSINOPHILS ABSOLUTE COUNT (BEAKER) (test code = 416) 0.37 K/ L 0.04-0.36 H BASOPHILS ABSOLUTE COUNT (BEAKER) (test code = 417) 0.05 K/ L 0. 01-0.08 IMMATURE GRANULOCYTES-RELATIVE PERCENT (BEAKER) (test code = 2801) 0 % 0-1 BASIC METABOLIC [id number] 05:15:00* Test Item Value Reference Range Interpretation Comments SODIUM (BEAKER) (test code = 381) 133 meq/L 136-145 L POTASSIUM (BEAKER) (test code = 379) 4.6 meq/L 3.5-5.1 CHLORIDE (BEAKER) (test code = 382) 97 meq/L 98-107 L CO2 (BEAKER) (test code = 355) 30 meq/L 22-29 H BLOOD UREA NITROGEN (BEAKER) (test code = 354) 46 mg/dL 7-21 H CREATININE (BEAKER) (test code = 358) 1.99 mg/dL 0.57-1.25 H GLUCOSE RANDOM (BEAKER) (test code = 652) 89 mg/dL 70-105 CALCIUM (BEAKER) (test code = 697) 9.3 mg/dL 8.4-10.2 EGFR (BEAKER) (test code = 1092) INSUFFICIENT CLINICAL DATA TO CALCULATE ESTIMATED GFR. Car Shakeout Operator ID - LULU [id number] 05:09:00* Test Item Value Reference Range Interpretation Comments PHOSPHORUS (BEAKER) (test code = 604) 4.0 mg/dL 2.3-4.7 Car Shakeout Operator ID - LULU [id number] 05:09:00* Test Item Value Reference Range Interpretation Comments MAGNESIUM (BEAKER) (test code = 627) 2.3 mg/dL 1.6-2.6 Car Shakeout Operator ID - LULU LCBC W/PLT COUNT & AUTO [id number] 04:31:00* Test Item Value Reference Range Interpretation Comments WHITE BLOOD CELL COUNT (BEAKER) (test code = 775) 5.8 K/ L 3.5- 10.5 RED BLOOD CELL COUNT (BEAKER) (test code = 761) 2.45 M/ L 3.93-5 .22 L HEMOGLOBIN (BEAKER) (test code = 410) 7.3 GM/DL 11.2-15.7 L HEMATOCRIT (BEAKER) (test code = 411) 24.1 % 34.1-44.9 L MEAN CORPUSCULAR VOLUME (BEAKER) (test code = 753) 98.4 fL 79. 4-94.8 H MEAN CORPUSCULAR HEMOGLOBIN (BEAKER) (test code = 751) 29.8 pg 25.6-32.2 MEAN CORPUSCULAR HEMOGLOBIN CONC (BEAKER) (test code = 752) 30.3 GM/DL 32.2-35.5 L RED CELL DISTRIBUTION WIDTH (BEAKER) (test code = 412) 16.8 % 11.7-14.4 H PLATELET COUNT (BEAKER) (test code = 756) 159 K/CU MM 150-450 MEAN PLATELET VOLUME (BEAKER) (test code = 754) 9.8 fL 9.4-12 .3 NUCLEATED RED BLOOD CELLS (BEAKER) (test code = 413) 0 /100 WBC 0 -0 NEUTROPHILS RELATIVE PERCENT (BEAKER) (test code = 429) 43 % LYMPHOCYTES RELATIVE PERCENT (BEAKER) (test code = 430) 41 % MONOCYTES RELATIVE PERCENT (BEAKER) (test code = 431) 8 % EOSINOPHILS RELATIVE PERCENT (BEAKER) (test code = 432) 6 % BASOPHILS RELATIVE PERCENT (BEAKER) (test code = 437) 1 % NEUTROPHILS ABSOLUTE COUNT (BEAKER) (test code = 670) 2.49 K/ L 1.56-6.13 LYMPHOCYTES ABSOLUTE COUNT (BEAKER) (test code = 414) 2.35 K/ L 1.18-3.74 MONOCYTES ABSOLUTE COUNT (BEAKER) (test code = 415) 0.48 K/ L 0. 24-0.36 H EOSINOPHILS ABSOLUTE COUNT (BEAKER) (test code = 416) 0.36 K/ L 0.04-0.36 BASOPHILS ABSOLUTE COUNT (BEAKER) (test code = 417) 0.05 K/ L 0. 01-0.08 IMMATURE GRANULOCYTES-RELATIVE PERCENT (BEAKER) (test code = 2801) 0 % 0-1 POCT-GLUCOSE [id number] 15:08:00* Test Item Value Reference Range Interpretation Comments POC-GLUCOSE METER (BEAKER) (test code = 1538) 85 mg/dL 70-110 : TESTED AT [facility] [address] [facility], [address]: Car Shakeout Operator/Crew Leader ID = [id number] for JOHANNY BRAGG CBC W/PLT COUNT & AUTO [id number] 07:23:00* Test Item Value Reference Range Interpretation Comments WHITE BLOOD CELL COUNT (BEAKER) (test code = 775) 5.9 K/ L 3.5- 10.5 RED BLOOD CELL COUNT (BEAKER) (test code = 761) 2.48 M/ L 3.93-5 .22 L HEMOGLOBIN (BEAKER) (test code = 410) 7.4 GM/DL 11.2-15.7 L HEMATOCRIT (BEAKER) (test code = 411) 24.3 % 34.1-44.9 L MEAN CORPUSCULAR VOLUME (BEAKER) (test code = 753) 98.0 fL 79. 4-94.8 H MEAN CORPUSCULAR HEMOGLOBIN (BEAKER) (test code = 751) 29.8 pg 25.6-32.2 MEAN CORPUSCULAR HEMOGLOBIN CONC (BEAKER) (test code = 752) 30.5 GM/DL 32.2-35.5 L RED CELL DISTRIBUTION WIDTH (BEAKER) (test code = 412) 16.8 % 11.7-14.4 H PLATELET COUNT (BEAKER) (test code = 756) 181 K/CU MM 150-450 MEAN PLATELET VOLUME (BEAKER) (test code = 754) 10.2 fL 9.4-12 .3 NUCLEATED RED BLOOD CELLS (BEAKER) (test code = 413) 0 /100 WBC 0 -0 NEUTROPHILS RELATIVE PERCENT (BEAKER) (test code = 429) 49 % LYMPHOCYTES RELATIVE PERCENT (BEAKER) (test code = 430) 35 % MONOCYTES RELATIVE PERCENT (BEAKER) (test code = 431) 9 % EOSINOPHILS RELATIVE PERCENT (BEAKER) (test code = 432) 6 % BASOPHILS RELATIVE PERCENT (BEAKER) (test code = 437) 1 % NEUTROPHILS ABSOLUTE COUNT (BEAKER) (test code = 670) 2.90 K/ L 1.56-6.13 LYMPHOCYTES ABSOLUTE COUNT (BEAKER) (test code = 414) 2.06 K/ L 1.18-3.74 MONOCYTES ABSOLUTE COUNT (BEAKER) (test code = 415) 0.55 K/ L 0. 24-0.36 H EOSINOPHILS ABSOLUTE COUNT (BEAKER) (test code = 416) 0.36 K/ L 0.04-0.36 BASOPHILS ABSOLUTE COUNT (BEAKER) (test code = 417) 0.04 K/ L 0. 01-0.08 IMMATURE GRANULOCYTES-RELATIVE PERCENT (BEAKER) (test code = 2801) 0 % 0-1 Vancomycin level, [id number] 07:02:00* Test Item Value Reference Range Interpretation Comments Vancomycin Rm (test code = 79669-9) 19.6 ug/mL JEANINE (test code = JEANINE) Reference Range: No NormalsOperator ID - PER [facility] [id number] 07:02:00* Test Item Value Reference Range Interpretation Comments VANCOMYCIN RANDOM (BEAKER) (test code = 523) 19.6 ug/mL Reference Range: No NormalsOperator ID - PIAYA LBASIC METABOLIC [id number] 07:01:00* Test Item Value Reference Range Interpretation Comments SODIUM (BEAKER) (test code = 381) 136 meq/L 136-145 POTASSIUM (BEAKER) (test code = 379) 4.8 meq/L 3.5-5.1 CHLORIDE (BEAKER) (test code = 382) 98 meq/L 98-107 CO2 (BEAKER) (test code = 355) 32 meq/L 22-29 H BLOOD UREA NITROGEN (BEAKER) (test code = 354) 42 mg/dL 7-21 H CREATININE (BEAKER) (test code = 358) 1.97 mg/dL 0.57-1.25 H GLUCOSE RANDOM (BEAKER) (test code = 652) 79 mg/dL 70-105 CALCIUM (BEAKER) (test code = 697) 9.4 mg/dL 8.4-10.2 EGFR (BEAKER) (test code = 1092) INSUFFICIENT CLINICAL DATA TO CALCULATE ESTIMATED GFR. Car Shakeout Operator ID - [id number] 06:59:00* Test Item Value Reference Range Interpretation Comments PHOSPHORUS (BEAKER) (test code = 604) 4.2 mg/dL 2.3-4.7 Car Shakeout Operator ID - [id number] 06:59:00* Test Item Value Reference Range Interpretation Comments MAGNESIUM (BEAKER) (test code = 627) 2.2 mg/dL 1.6-2.6 Car Shakeout Operator ID - EDASISARS-COV2/RT-PCR ([facility])2020-01-03 22:19:00* Test Item Value Reference Range Interpretation Comments SARS-COV2/RT-PCR (test code = 3231923) Negative N ot Detected, Negative, See external report for linked test SARS-COV-2 PERFORMING LAB (test code = 2419070) [facility] RY Negative result for this test determines that SARS-CoV-2 RNA was not present in the specimen above the Limit of Detection (LOD). However, Negative results do n ot preclude SARS-CoV-2 infection and should not be used as the sole basis for tr eatment or patient management decisions. Negative results must be combined with clinical observations, patient history, and epidemiological information. A false negative result may occur if a specimen is improperly collected, transported or handled. A false negative result should be considered if patient's recent expo sures or clinical presentation indicate that COVID-19 (SARS-CoV-2) is likely and diagnostic tests for other causes of illness are negative. Re-testing should be considered in cases of suspected false negatives.The limit of detection for this assay is 800 copies/mL.This SARS CoV-2 test is a real-time RT-PCR test intended for the qualitative detection of nucleic acid from SARS-CoV-2 in a nasopharyn geal swab specimen collected from individuals suspected of COVID-19 by their [facility] provider.This test has not been Food and Drug Administration (FDA) clear ed or approved. This is a modified version of an approved Emergency Use Authori zation (EUA) and is in the process of review by the FDA. Once authorized by [facility] FDA, the issued EUA will be effective until the declaration that circumstances exist justifying the authorization of the emergency use of in vitro diagnostic tests for detection and/or diagnosis of COVID-19 is terminated under Section 564 (b)(2) of the Act or the EUA is revoked under Section 564(g) of the Act.Fact She et for Healthcare Providers:https://www.[employer].com/sites/default/files/product/d ocuments/Uupg_Uqnnr_FW_Mulgdbfyw_Cwbs_URUM-KtR-9.pdfFact Sheet for Healthcare Pa sara:https://www.[employer].com/sites/default/files/product/documents/Fact_Sheet_P mpvtwmq_Gcmp_DTAD-NeA-5.pdfPerforming Laboratory:[facility] [address], [place] [address]OJOHWGXOYP LEVEL, [id number] 17:18:00* Test Item Value Reference Range Interpretation Comments VANCOMYCIN TROUGH (BEAKER) (test code = 522) 20.9 ug/mL 10.0-20.0 H Car Shakeout Operator ID - BSBASIC METABOLIC [id number] 08:21:00* Test Item Value Reference Range Interpretation Comments SODIUM (BEAKER) (test code = 381) 136 meq/L 136-145 POTASSIUM (BEAKER) (test code = 379) 4.8 meq/L 3.5-5.1 CHLORIDE (BEAKER) (test code = 382) 101 meq/L 98-107 CO2 (BEAKER) (test code = 355) 28 meq/L 22-29 BLOOD UREA NITROGEN (BEAKER) (test code = 354) 40 mg/dL 7-21 H CREATININE (BEAKER) (test code = 358) 2.03 mg/dL 0.57-1.25 H GLUCOSE RANDOM (BEAKER) (test code = 652) 82 mg/dL 70-105 CALCIUM (BEAKER) (test code = 697) 9.1 mg/dL 8.4-10.2 EGFR (BEAKER) (test code = 1092) INSUFFICIENT CLINICAL DATA TO CALCULATE ESTIMATED GFR. Car Shakeout Operator ID - [id number] 08:19:00* Test Item Value Reference Range Interpretation Comments PHOSPHORUS (BEAKER) (test code = 604) 4.0 mg/dL 2.3-4.7 Car Shakeout Operator ID - [id number] 08:19:00* Test Item Value Reference Range Interpretation Comments MAGNESIUM (BEAKER) (test code = 627) 2.2 mg/dL 1.6-2.6 Car Shakeout Operator ID - BSCBC W/PLT COUNT & AUTO [id number] 06:45:00* Test Item Value Reference Range Interpretation Comments WHITE BLOOD CELL COUNT (BEAKER) (test code = 775) 5.5 K/ L 3.5- 10.5 RED BLOOD CELL COUNT (BEAKER) (test code = 761) 2.58 M/ L 3.93-5 .22 L HEMOGLOBIN (BEAKER) (test code = 410) 7.7 GM/DL 11.2-15.7 L HEMATOCRIT (BEAKER) (test code = 411) 25.5 % 34.1-44.9 L MEAN CORPUSCULAR VOLUME (BEAKER) (test code = 753) 98.8 fL 79. 4-94.8 H MEAN CORPUSCULAR HEMOGLOBIN (BEAKER) (test code = 751) 29.8 pg 25.6-32.2 MEAN CORPUSCULAR HEMOGLOBIN CONC (BEAKER) (test code = 752) 30.2 GM/DL 32.2-35.5 L RED CELL DISTRIBUTION WIDTH (BEAKER) (test code = 412) 16.9 % 11.7-14.4 H PLATELET COUNT (BEAKER) (test code = 756) 191 K/CU MM 150-450 MEAN PLATELET VOLUME (BEAKER) (test code = 754) 10.0 fL 9.4-12 .3 NUCLEATED RED BLOOD CELLS (BEAKER) (test code = 413) 0 /100 WBC 0 -0 NEUTROPHILS RELATIVE PERCENT (BEAKER) (test code = 429) 48 % LYMPHOCYTES RELATIVE PERCENT (BEAKER) (test code = 430) 36 % MONOCYTES RELATIVE PERCENT (BEAKER) (test code = 431) 8 % EOSINOPHILS RELATIVE PERCENT (BEAKER) (test code = 432) 7 % BASOPHILS RELATIVE PERCENT (BEAKER) (test code = 437) 1 % NEUTROPHILS ABSOLUTE COUNT (BEAKER) (test code = 670) 2.64 K/ L 1.56-6.13 LYMPHOCYTES ABSOLUTE COUNT (BEAKER) (test code = 414) 1.99 K/ L 1.18-3.74 MONOCYTES ABSOLUTE COUNT (BEAKER) (test code = 415) 0.46 K/ L 0. 24-0.36 H EOSINOPHILS ABSOLUTE COUNT (BEAKER) (test code = 416) 0.36 K/ L 0.04-0.36 BASOPHILS ABSOLUTE COUNT (BEAKER) (test code = 417) 0.04 K/ L 0. 01-0.08 IMMATURE GRANULOCYTES-RELATIVE PERCENT (BEAKER) (test code = 2801) 0 % 0-1 ECG 12 [id number] 06:27:38Interface, External Ris In - 01/02/2020 6:27 AM CDTVentricular Rate 51 BPMAtrial Rate 104 BPMQRS Duration 160 msQ-T Interval 476 msQTC Calculation(Bazett) 438 msR Redfox -15 degreesT Redfox 23 degreesAtrial fibrillation with slow ventricular responseRight bundle branch blockCannot exclude old anterior infarctNonspecific T wave abnormality inferior leadsAbnormal ECGWhen compared with ECG of 31-DEC-2019 06:33,Different placement of leads V2 and V3Limb leads are no longer misplacedConfirmed by MD ABBIE, ARIELLA ([id number]) on 01/02/2020 6:27:35 [facility] [id number] 05:37:00* Test Item Value Reference Range Interpretation Comments SODIUM (BEAKER) (test code = 381) 137 meq/L 136-145 POTASSIUM (BEAKER) (test code = 379) 4.7 meq/L 3.5-5.1 CHLORIDE (BEAKER) (test code = 382) 101 meq/L 98-107 CO2 (BEAKER) (test code = 355) 32 meq/L 22-29 H BLOOD UREA NITROGEN (BEAKER) (test code = 354) 36 mg/dL 7-21 H CREATININE (BEAKER) (test code = 358) 1.82 mg/dL 0.57-1.25 H GLUCOSE RANDOM (BEAKER) (test code = 652) 88 mg/dL 70-105 CALCIUM (BEAKER) (test code = 697) 8.8 mg/dL 8.4-10.2 EGFR (BEAKER) (test code = 1092) INSUFFICIENT CLINICAL DATA TO CALCULATE ESTIMATED GFR. Car Shakeout Operator ID - YOGESH [id number] 05:35:00* Test Item Value Reference Range Interpretation Comments PHOSPHORUS (BEAKER) (test code = 604) 4.1 mg/dL 2.3-4.7 Car Shakeout Operator ID - YOGESH [id number] 05:35:00* Test Item Value Reference Range Interpretation Comments MAGNESIUM (BEAKER) (test code = 627) 2.3 mg/dL 1.6-2.6 Car Shakeout Operator ID Serge ZUÑIGA WCBC W/PLT COUNT & AUTO [id number] 05:15:00* Test Item Value Reference Range Interpretation Comments WHITE BLOOD CELL COUNT (BEAKER) (test code = 775) 5.6 K/ L 3.5- 10.5 RED BLOOD CELL COUNT (BEAKER) (test code = 761) 2.45 M/ L 3.93-5 .22 L HEMOGLOBIN (BEAKER) (test code = 410) 7.2 GM/DL 11.2-15.7 L HEMATOCRIT (BEAKER) (test code = 411) 24.2 % 34.1-44.9 L MEAN CORPUSCULAR VOLUME (BEAKER) (test code = 753) 98.8 fL 79. 4-94.8 H MEAN CORPUSCULAR HEMOGLOBIN (BEAKER) (test code = 751) 29.4 pg 25.6-32.2 MEAN CORPUSCULAR HEMOGLOBIN CONC (BEAKER) (test code = 752) 29.8 GM/DL 32.2-35.5 L RED CELL DISTRIBUTION WIDTH (BEAKER) (test code = 412) 17.1 % 11.7-14.4 H PLATELET COUNT (BEAKER) (test code = 756) 191 K/CU MM 150-450 MEAN PLATELET VOLUME (BEAKER) (test code = 754) 9.5 fL 9.4-12 .3 NUCLEATED RED BLOOD CELLS (BEAKER) (test code = 413) 0 /100 WBC 0 -0 NEUTROPHILS RELATIVE PERCENT (BEAKER) (test code = 429) 47 % LYMPHOCYTES RELATIVE PERCENT (BEAKER) (test code = 430) 36 % MONOCYTES RELATIVE PERCENT (BEAKER) (test code = 431) 9 % EOSINOPHILS RELATIVE PERCENT (BEAKER) (test code = 432) 6 % BASOPHILS RELATIVE PERCENT (BEAKER) (test code = 437) 1 % NEUTROPHILS ABSOLUTE COUNT (BEAKER) (test code = 670) 2.63 K/ L 1.56-6.13 LYMPHOCYTES ABSOLUTE COUNT (BEAKER) (test code = 414) 2.03 K/ L 1.18-3.74 MONOCYTES ABSOLUTE COUNT (BEAKER) (test code = 415) 0.52 K/ L 0. 24-0.36 H EOSINOPHILS ABSOLUTE COUNT (BEAKER) (test code = 416) 0.35 K/ L 0.04-0.36 BASOPHILS ABSOLUTE COUNT (BEAKER) (test code = 417) 0.04 K/ L 0. 01-0.08 IMMATURE GRANULOCYTES-RELATIVE PERCENT (BEAKER) (test code = 2801) 0 % 0-1 SARS-COV2/RT-PCR ([facility])2020-01-01 13:39:00* Test Item Value Reference Range Interpretation Comments SARS-COV2/RT-PCR (test code = 8881754) Negative N ot Detected, Negative, See external report for linked test SARS-COV-2 PERFORMING LAB (test code = 2834353) [facility] R[facility] Negative result for this test determines that SARS-CoV-2 RNA was not present in the specimen above the Limit of Detection (LOD). However, Negative results do n ot preclude SARS-CoV-2 infection and should not be used as the sole basis for tr eatment or patient management decisions. Negative results must be combined with clinical observations, patient history, and epidemiological information. A false negative result may occur if a specimen is improperly collected, transported or handled. A false negative result should be considered if patient's recent expo sures or clinical presentation indicate that COVID-19 (SARS-CoV-2) is likely and diagnostic tests for other causes of illness are negative. Re-testing should be considered in cases of suspected false negatives.The limit of detection for this assay is 800 copies/mL.This SARS CoV-2 test is a real-time RT-PCR test intended for the qualitative detection of nucleic acid from SARS-CoV-2 in a nasopharyn geal swab specimen collected from individuals suspected of COVID-19 by their [facility] provider.This test has not been Food and Drug Administration (FDA) clear ed or approved. This is a modified version of an approved Emergency Use Authori zation (EUA) and is in the process of review by the FDA. Once authorized by [facility] FDA, the issued EUA will be effective until the declaration that circumstances exist justifying the authorization of the emergency use of in vitro diagnostic tests for detection and/or diagnosis of COVID-19 is terminated under Section 564 (b)(2) of the Act or the EUA is revoked under Section 564(g) of the Act.Fact She et for Healthcare Providers:[email or web address] [employer]/sites/default/files/product/d ocuments/Kvmk_Uiyuw_ND_Qpgpkiqiy_Wqig_QZGO-KsP-7.pdfFact Sheet for Healthcare Pa jessicas:[email or web address]/default/files/product/documents/Fact_Sheet_P ohpqnaz_Uvxf_NHFE-EdP-2.pdfPerforming Laboratory:[facility] [place] [address], [place] [address]Xenaamh B12 and [id number] 06:40:00* Test Item Value Reference Range Interpretation Comments Vitamin B12 (test code = 2132-9) 648 pg/mL 213-816 Folate (test code = 2284-8) 10.60 ng/mL >=7.00 JEANINE (test code = JEANINE) Car Shakeout Operator ID - LULU L Lab Interpretation (test code = 95117-6) [facility] [id number] 06:40:00* Test Item Value Reference Range Interpretation Comments VITAMIN B12 (BEAKER) (test code = 774) 648 pg/mL 213-816 FOLATE (BEAKER) (test code = 362) 10.60 ng/mL >=7.00 Car Shakeout Operator ID - LULU LBASIC METABOLIC [id number] 06:38:00* Test Item Value Reference Range Interpretation Comments SODIUM (BEAKER) (test code = 381) 137 meq/L 136-145 POTASSIUM (BEAKER) (test code = 379) 5.1 meq/L 3.5-5.1 CHLORIDE (BEAKER) (test code = 382) 102 meq/L 98-107 CO2 (BEAKER) (test code = 355) 29 meq/L 22-29 BLOOD UREA NITROGEN (BEAKER) (test code = 354) 38 mg/dL 7-21 H CREATININE (BEAKER) (test code = 358) 1.77 mg/dL 0.57-1.25 H GLUCOSE RANDOM (BEAKER) (test code = 652) 89 mg/dL 70-105 CALCIUM (BEAKER) (test code = 697) 8.7 mg/dL 8.4-10.2 EGFR (BEAKER) (test code = 1092) INSUFFICIENT CLINICAL DATA TO CALCULATE ESTIMATED GFR. Car Shakeout Operator ID - LULU [id number] 06:30:00* Test Item Value Reference Range Interpretation Comments PHOSPHORUS (BEAKER) (test code = 604) 3.9 mg/dL 2.3-4.7 Car Shakeout Operator ID - LULU [id number] 06:30:00* Test Item Value Reference Range Interpretation Comments MAGNESIUM (BEAKER) (test code = 627) 2.3 mg/dL 1.6-2.6 Car Shakeout Operator THUY Serge LAWSON LCBC W/PLT COUNT & AUTO [id number] 05:18:00* Test Item Value Reference Range Interpretation Comments WHITE BLOOD CELL COUNT (BEAKER) (test code = 775) 5.8 K/ L 3.5- 10.5 RED BLOOD CELL COUNT (BEAKER) (test code = 761) 2.43 M/ L 3.93-5 .22 L HEMOGLOBIN (BEAKER) (test code = 410) 7.3 GM/DL 11.2-15.7 L HEMATOCRIT (BEAKER) (test code = 411) 24.3 % 34.1-44.9 L MEAN CORPUSCULAR VOLUME (BEAKER) (test code = 753) 100.0 fL 79. 4-94.8 H MEAN CORPUSCULAR HEMOGLOBIN (BEAKER) (test code = 751) 30.0 pg 25.6-32.2 MEAN CORPUSCULAR HEMOGLOBIN CONC (BEAKER) (test code = 752) 30.0 GM/DL 32.2-35.5 L RED CELL DISTRIBUTION WIDTH (BEAKER) (test code = 412) 17.2 % 11.7-14.4 H PLATELET COUNT (BEAKER) (test code = 756) 193 K/CU MM 150-450 MEAN PLATELET VOLUME (BEAKER) (test code = 754) 9.6 fL 9.4-12 .3 NUCLEATED RED BLOOD CELLS (BEAKER) (test code = 413) 0 /100 WBC 0 -0 NEUTROPHILS RELATIVE PERCENT (BEAKER) (test code = 429) 53 % LYMPHOCYTES RELATIVE PERCENT (BEAKER) (test code = 430) 30 % MONOCYTES RELATIVE PERCENT (BEAKER) (test code = 431) 9 % EOSINOPHILS RELATIVE PERCENT (BEAKER) (test code = 432) 7 % BASOPHILS RELATIVE PERCENT (BEAKER) (test code = 437) 1 % NEUTROPHILS ABSOLUTE COUNT (BEAKER) (test code = 670) 3.08 K/ L 1.56-6.13 LYMPHOCYTES ABSOLUTE COUNT (BEAKER) (test code = 414) 1.76 K/ L 1.18-3.74 MONOCYTES ABSOLUTE COUNT (BEAKER) (test code = 415) 0.55 K/ L 0. 24-0.36 H EOSINOPHILS ABSOLUTE COUNT (BEAKER) (test code = 416) 0.39 K/ L 0.04-0.36 H BASOPHILS ABSOLUTE COUNT (BEAKER) (test code = 417) 0.04 K/ L 0. 01-0.08 IMMATURE GRANULOCYTES-RELATIVE PERCENT (BEAKER) (test code = 2801) 0 % 0-1 VANCOMYCIN LEVEL, [id number] 19:11:00* Test Item Value Reference Range Interpretation Comments VANCOMYCIN TROUGH (BEAKER) (test code = 522) 19.9 ug/mL 10.0-20.0 Car Shakeout Operator ID - DBBASIC METABOLIC [id number] 06:10:00* Test Item Value Reference Range Interpretation Comments SODIUM (BEAKER) (test code = 381) 137 meq/L 136-145 POTASSIUM (BEAKER) (test code = 379) 5.5 meq/L 3.5-5.1 H Specimen slightly hemolyzed CHLORIDE (BEAKER) (test code = 382) 103 meq/L 98-107 CO2 (BEAKER) (test code = 355) 29 meq/L 22-29 BLOOD UREA NITROGEN (BEAKER) (test code = 354) 41 mg/dL 7-21 H CREATININE (BEAKER) (test code = 358) 1.79 mg/dL 0.57-1.25 H Specimen slightly hemolyzed GLUCOSE RANDOM (BEAKER) (test code = 652) 83 mg/dL 70-105 CALCIUM (BEAKER) (test code = 697) 8.8 mg/dL 8.4-10.2 EGFR (BEAKER) (test code = 1092) INSUFFICIENT CLINICAL DATA TO CALCULATE ESTIMATED GFR. Car Shakeout Operator ID - PIAYA [id number] 06:06:00* Test Item Value Reference Range Interpretation Comments MAGNESIUM (BEAKER) (test code = 627) 2.3 mg/dL 1.6-2.6 Specimen slightly hemolyzed Car Shakeout Operator ID - PIAYA [id number] 06:06:00* Test Item Value Reference Range Interpretation Comments PHOSPHORUS (BEAKER) (test code = 604) 3.9 mg/dL 2.3-4.7 Specimen slightly hemolyzed Car Shakeout Operator ID - PIAYA LCBC W/PLT COUNT & AUTO [id number] 05:12:00* Test Item Value Reference Range Interpretation Comments WHITE BLOOD CELL COUNT (BEAKER) (test code = 775) 5.8 K/ L 3.5- 10.5 RED BLOOD CELL COUNT (BEAKER) (test code = 761) 2.36 M/ L 3.93-5 .22 L HEMOGLOBIN (BEAKER) (test code = 410) 7.1 GM/DL 11.2-15.7 L HEMATOCRIT (BEAKER) (test code = 411) 23.8 % 34.1-44.9 L MEAN CORPUSCULAR VOLUME (BEAKER) (test code = 753) 100.8 fL 79. 4-94.8 H MEAN CORPUSCULAR HEMOGLOBIN (BEAKER) (test code = 751) 30.1 pg 25.6-32.2 MEAN CORPUSCULAR HEMOGLOBIN CONC (BEAKER) (test code = 752) 29.8 GM/DL 32.2-35.5 L RED CELL DISTRIBUTION WIDTH (BEAKER) (test code = 412) 17.6 % 11.7-14.4 H PLATELET COUNT (BEAKER) (test code = 756) 225 K/CU MM 150-450 MEAN PLATELET VOLUME (BEAKER) (test code = 754) 10.1 fL 9.4-12 .3 NUCLEATED RED BLOOD CELLS (BEAKER) (test code = 413) 0 /100 WBC 0 -0 NEUTROPHILS RELATIVE PERCENT (BEAKER) (test code = 429) 42 % LYMPHOCYTES RELATIVE PERCENT (BEAKER) (test code = 430) 42 % MONOCYTES RELATIVE PERCENT (BEAKER) (test code = 431) 10 % EOSINOPHILS RELATIVE PERCENT (BEAKER) (test code = 432) 5 % BASOPHILS RELATIVE PERCENT (BEAKER) (test code = 437) 1 % NEUTROPHILS ABSOLUTE COUNT (BEAKER) (test code = 670) 2.43 K/ L 1.56-6.13 LYMPHOCYTES ABSOLUTE COUNT (BEAKER) (test code = 414) 2.41 K/ L 1.18-3.74 MONOCYTES ABSOLUTE COUNT (BEAKER) (test code = 415) 0.55 K/ L 0. 24-0.36 H EOSINOPHILS ABSOLUTE COUNT (BEAKER) (test code = 416) 0.31 K/ L 0.04-0.36 BASOPHILS ABSOLUTE COUNT (BEAKER) (test code = 417) 0.04 K/ L 0. 01-0.08 IMMATURE GRANULOCYTES-RELATIVE PERCENT (BEAKER) (test code = 2801) 0 % 0-1 BASIC METABOLIC [id number] 05:50:00* Test Item Value Reference Range Interpretation Comments SODIUM (BEAKER) (test code = 381) 138 meq/L 136-145 POTASSIUM (BEAKER) (test code = 379) 5.3 meq/L 3.5-5.1 H CHLORIDE (BEAKER) (test code = 382) 103 meq/L 98-107 CO2 (BEAKER) (test code = 355) 29 meq/L 22-29 BLOOD UREA NITROGEN (BEAKER) (test code = 354) 37 mg/dL 7-21 H CREATININE (BEAKER) (test code = 358) 1.67 mg/dL 0.57-1.25 H GLUCOSE RANDOM (BEAKER) (test code = 652) 81 mg/dL 70-105 CALCIUM (BEAKER) (test code = 697) 8.7 mg/dL 8.4-10.2 EGFR (BEAKER) (test code = 1092) INSUFFICIENT CLINICAL DATA TO CALCULATE ESTIMATED GFR. Car Shakeout Operator ID - PIAYA [id number] 05:47:00* Test Item Value Reference Range Interpretation Comments PHOSPHORUS (BEAKER) (test code = 604) 3.8 mg/dL 2.3-4.7 Car Shakeout Operator ID - PIAYA [id number] 05:47:00* Test Item Value Reference Range Interpretation Comments MAGNESIUM (BEAKER) (test code = 627) 2.3 mg/dL 1.6-2.6 Car Shakeout Operator ID - PIAYA LCBC W/PLT COUNT & AUTO [id number] 05:21:00* Test Item Value Reference Range Interpretation Comments WHITE BLOOD CELL COUNT (BEAKER) (test code = 775) 6.4 K/ L 3.5- 10.5 RED BLOOD CELL COUNT (BEAKER) (test code = 761) 2.46 M/ L 3.93-5 .22 L HEMOGLOBIN (BEAKER) (test code = 410) 7.3 GM/DL 11.2-15.7 L HEMATOCRIT (BEAKER) (test code = 411) 24.7 % 34.1-44.9 L MEAN CORPUSCULAR VOLUME (BEAKER) (test code = 753) 100.4 fL 79. 4-94.8 H MEAN CORPUSCULAR HEMOGLOBIN (BEAKER) (test code = 751) 29.7 pg 25.6-32.2 MEAN CORPUSCULAR HEMOGLOBIN CONC (BEAKER) (test code = 752) 29.6 GM/DL 32.2-35.5 L RED CELL DISTRIBUTION WIDTH (BEAKER) (test code = 412) 17.5 % 11.7-14.4 H PLATELET COUNT (BEAKER) (test code = 756) 238 K/CU MM 150-450 MEAN PLATELET VOLUME (BEAKER) (test code = 754) 9.7 fL 9.4-12 .3 NUCLEATED RED BLOOD CELLS (BEAKER) (test code = 413) 0 /100 WBC 0 -0 NEUTROPHILS RELATIVE PERCENT (BEAKER) (test code = 429) 48 % LYMPHOCYTES RELATIVE PERCENT (BEAKER) (test code = 430) 36 % MONOCYTES RELATIVE PERCENT (BEAKER) (test code = 431) 10 % EOSINOPHILS RELATIVE PERCENT (BEAKER) (test code = 432) 5 % BASOPHILS RELATIVE PERCENT (BEAKER) (test code = 437) 1 % NEUTROPHILS ABSOLUTE COUNT (BEAKER) (test code = 670) 3.09 K/ L 1.56-6.13 LYMPHOCYTES ABSOLUTE COUNT (BEAKER) (test code = 414) 2.30 K/ L 1.18-3.74 MONOCYTES ABSOLUTE COUNT (BEAKER) (test code = 415) 0.62 K/ L 0. 24-0.36 H EOSINOPHILS ABSOLUTE COUNT (BEAKER) (test code = 416) 0.30 K/ L 0.04-0.36 BASOPHILS ABSOLUTE COUNT (BEAKER) (test code = 417) 0.06 K/ L 0. 01-0.08 IMMATURE GRANULOCYTES-RELATIVE PERCENT (BEAKER) (test code = 2801) 0 % 0-1 VANCOMYCIN LEVEL, [id number] 17:25:00* Test Item Value Reference Range Interpretation Comments VANCOMYCIN TROUGH (BEAKER) (test code = 522) 20.8 ug/mL 10.0-20.0 H Car Shakeout Operator ID - DBBASIC METABOLIC [id number] 07:50:00* Test Item Value Reference Range Interpretation Comments SODIUM (BEAKER) (test code = 381) 137 meq/L 136-145 POTASSIUM (BEAKER) (test code = 379) 4.9 meq/L 3.5-5.1 CHLORIDE (BEAKER) (test code = 382) 102 meq/L 98-107 CO2 (BEAKER) (test code = 355) 28 meq/L 22-29 BLOOD UREA NITROGEN (BEAKER) (test code = 354) 32 mg/dL 7-21 H CREATININE (BEAKER) (test code = 358) 1.65 mg/dL 0.57-1.25 H GLUCOSE RANDOM (BEAKER) (test code = 652) 82 mg/dL 70-105 CALCIUM (BEAKER) (test code = 697) 9.1 mg/dL 8.4-10.2 EGFR (BEAKER) (test code = 1092) INSUFFICIENT CLINICAL DATA TO CALCULATE ESTIMATED GFR. Car Shakeout Operator ID - CHASIDY [id number] 07:48:00* Test Item Value Reference Range Interpretation Comments PHOSPHORUS (BEAKER) (test code = 604) 3.8 mg/dL 2.3-4.7 Car Shakeout Operator ID - CHASIDY [id number] 07:48:00* Test Item Value Reference Range Interpretation Comments MAGNESIUM (BEAKER) (test code = 627) 2.2 mg/dL 1.6-2.6 Car Shakeout Operator ID - CHASIDY FCBC W/PLT COUNT & AUTO [id number] 06:49:00* Test Item Value Reference Range Interpretation Comments WHITE BLOOD CELL COUNT (BEAKER) (test code = 775) 5.6 K/ L 3.5- 10.5 RED BLOOD CELL COUNT (BEAKER) (test code = 761) 2.62 M/ L 3.93-5 .22 L HEMOGLOBIN (BEAKER) (test code = 410) 7.7 GM/DL 11.2-15.7 L HEMATOCRIT (BEAKER) (test code = 411) 26.0 % 34.1-44.9 L MEAN CORPUSCULAR VOLUME (BEAKER) (test code = 753) 99.2 fL 79. 4-94.8 H MEAN CORPUSCULAR HEMOGLOBIN (BEAKER) (test code = 751) 29.4 pg 25.6-32.2 MEAN CORPUSCULAR HEMOGLOBIN CONC (BEAKER) (test code = 752) 29.6 GM/DL 32.2-35.5 L RED CELL DISTRIBUTION WIDTH (BEAKER) (test code = 412) 17.2 % 11.7-14.4 H PLATELET COUNT (BEAKER) (test code = 756) 246 K/CU MM 150-450 MEAN PLATELET VOLUME (BEAKER) (test code = 754) 9.4 fL 9.4-12 .3 NUCLEATED RED BLOOD CELLS (BEAKER) (test code = 413) 0 /100 WBC 0 -0 NEUTROPHILS RELATIVE PERCENT (BEAKER) (test code = 429) 42 % LYMPHOCYTES RELATIVE PERCENT (BEAKER) (test code = 430) 41 % MONOCYTES RELATIVE PERCENT (BEAKER) (test code = 431) 10 % EOSINOPHILS RELATIVE PERCENT (BEAKER) (test code = 432) 5 % BASOPHILS RELATIVE PERCENT (BEAKER) (test code = 437) 1 % NEUTROPHILS ABSOLUTE COUNT (BEAKER) (test code = 670) 2.39 K/ L 1.56-6.13 LYMPHOCYTES ABSOLUTE COUNT (BEAKER) (test code = 414) 2.29 K/ L 1.18-3.74 MONOCYTES ABSOLUTE COUNT (BEAKER) (test code = 415) 0.57 K/ L 0. 24-0.36 H EOSINOPHILS ABSOLUTE COUNT (BEAKER) (test code = 416) 0.30 K/ L 0.04-0.36 BASOPHILS ABSOLUTE COUNT (BEAKER) (test code = 417) 0.07 K/ L 0. 01-0.08 IMMATURE GRANULOCYTES-RELATIVE PERCENT (BEAKER) (test code = 2801) 0 % 0-1 POCT-GLUCOSE [id number] 20:49:00* Test Item Value Reference Range Interpretation Comments POC-GLUCOSE METER (BEAKER) (test code = 1538) 106 mg/dL 70-110 : TESTED AT [facility] [address], [address]: Car Shakeout Operator/Crew Leader ID = [id number] for BERNADETTE, CLARE RAD, CHEST, 1 VIEW, NON [id number] 15:19:00Reason for exam:->RIGHT SIDE PICC LINE TIP VERIFICATIONShould this be performed at the bedside?->YesFINAL REPORT CLINICAL HISTORY: RIGHT SIDE PICC LINE TIP VERIFICATION TECHNIQUE: 1 view of the chest. COMPARISON: 12/27/2019 IMPRESSION: The tip of the right PICC line is not well-seen but is approximately at the cavoatrial junction. There are no infiltrates. The left costophrenic angle is obscured by the pacemaker, but no obvious effusions are seen. The cardiomediastinal mehdi houette is magnified by technique with sternotomy wires. Signed: Tacos Abdi MDReport Verified Date/Time: 12/28/2019 15:19:14 Reading Location: [facility] Radiology Reading Room -GLUCOSE [id number] 07:41:00* Test Item Value Reference Range Interpretation Comments POC-GLUCOSE METER (BEAKER) (test code = 1538) 87 mg/dL 70-110 : TESTED AT [facility] [address], [address]: Car Shakeout Operator/Crew Leader ID = [id number] for GEOVANNI HAYDEN BASIC METABOLIC [id number] 06:56:00* Test Item Value Reference Range Interpretation Comments SODIUM (BEAKER) (test code = 381) 139 meq/L 136-145 POTASSIUM (BEAKER) (test code = 379) 5.2 meq/L 3.5-5.1 H CHLORIDE (BEAKER) (test code = 382) 104 meq/L 98-107 CO2 (BEAKER) (test code = 355) 31 meq/L 22-29 H BLOOD UREA NITROGEN (BEAKER) (test code = 354) 30 mg/dL 7-21 H CREATININE (BEAKER) (test code = 358) 1.61 mg/dL 0.57-1.25 H GLUCOSE RANDOM (BEAKER) (test code = 652) 85 mg/dL 70-105 CALCIUM (BEAKER) (test code = 697) 9.0 mg/dL 8.4-10.2 EGFR (BEAKER) (test code = 1092) INSUFFICIENT CLINICAL DATA TO CALCULATE ESTIMATED GFR. Car Shakeout Operator ID - PIJUDY [id number] 06:36:00* Test Item Value Reference Range Interpretation Comments PHOSPHORUS (BEAKER) (test code = 604) 3.6 mg/dL 2.3-4.7 Car Shakeout Operator ID - PIJUDY [id number] 06:36:00* Test Item Value Reference Range Interpretation Comments MAGNESIUM (BEAKER) (test code = 627) 2.1 mg/dL 1.6-2.6 Car Shakeout Operator ID - PIJUDY LCBC W/PLT COUNT & AUTO [id number] 05:47:00* Test Item Value Reference Range Interpretation Comments WHITE BLOOD CELL COUNT (BEAKER) (test code = 775) 5.7 K/ L 3.5- 10.5 RED BLOOD CELL COUNT (BEAKER) (test code = 761) 2.50 M/ L 3.93-5 .22 L HEMOGLOBIN (BEAKER) (test code = 410) 7.5 GM/DL 11.2-15.7 L HEMATOCRIT (BEAKER) (test code = 411) 25.0 % 34.1-44.9 L MEAN CORPUSCULAR VOLUME (BEAKER) (test code = 753) 100.0 fL 79. 4-94.8 H MEAN CORPUSCULAR HEMOGLOBIN (BEAKER) (test code = 751) 30.0 pg 25.6-32.2 MEAN CORPUSCULAR HEMOGLOBIN CONC (BEAKER) (test code = 752) 30.0 GM/DL 32.2-35.5 L RED CELL DISTRIBUTION WIDTH (BEAKER) (test code = 412) 17.2 % 11.7-14.4 H PLATELET COUNT (BEAKER) (test code = 756) 244 K/CU MM 150-450 MEAN PLATELET VOLUME (BEAKER) (test code = 754) 9.7 fL 9.4-12 .3 NUCLEATED RED BLOOD CELLS (BEAKER) (test code = 413) 0 /100 WBC 0 -0 NEUTROPHILS RELATIVE PERCENT (BEAKER) (test code = 429) 45 % LYMPHOCYTES RELATIVE PERCENT (BEAKER) (test code = 430) 38 % MONOCYTES RELATIVE PERCENT (BEAKER) (test code = 431) 10 % EOSINOPHILS RELATIVE PERCENT (BEAKER) (test code = 432) 6 % BASOPHILS RELATIVE PERCENT (BEAKER) (test code = 437) 1 % NEUTROPHILS ABSOLUTE COUNT (BEAKER) (test code = 670) 2.56 K/ L 1.56-6.13 LYMPHOCYTES ABSOLUTE COUNT (BEAKER) (test code = 414) 2.18 K/ L 1.18-3.74 MONOCYTES ABSOLUTE COUNT (BEAKER) (test code = 415) 0.56 K/ L 0. 24-0.36 H EOSINOPHILS ABSOLUTE COUNT (BEAKER) (test code = 416) 0.31 K/ L 0.04-0.36 BASOPHILS ABSOLUTE COUNT (BEAKER) (test code = 417) 0.05 K/ L 0. 01-0.08 IMMATURE GRANULOCYTES-RELATIVE PERCENT (BEAKER) (test code = 2801) 0 % 0-1 VANCOMYCIN LEVEL, [id number] 18:01:00* Test Item Value Reference Range Interpretation Comments VANCOMYCIN TROUGH (STEWART) (test code = 522) 22.7 ug/mL 10.0-20.0 H Car Shakeout Operator ID - EDASIPOCT-GLUCOSE [id number] 11:53:00* Test Item Value Reference Range Interpretation Comments POC-GLUCOSE METER (STEWART) (test code = 1538) 97 mg/dL 70-110 : TESTED AT [facility] [address] [place] [address], [address]: Car Shakeout Operator/Crew Leader ID = [id number] for SONAL MORALES RAD, CHEST, 2 [id number] 10:16:00Reason for exam:->assess ICD lead positionShould this be performed at the bedside?->NoFINAL REPORT CLINICAL HISTORY: assess ICD lead position TECHNIQUE: 2 views of the chest, four views of the sternum COMPARISON: Chest 03/12/2015 IMPRESSION: There is a new left lower chest wall AICD with a single lead projecting over the left upper chest wall. There is no pneumothorax. There are no focal infiltrates or effusions. Sternotomy wires are again noted without cardiomegaly. Signed: Tacos Abdi Verified Date/Time: 12/27/2019 10:16:20 Reading Location: [facility] Reading Room , STERNUM, MIN 2 [id number] 10:16:00Reason for exam:->infectionassess ICD positionShould this be performed at the bedside?- >NoFINAL REPORT CLINICAL HISTORY: assess ICD lead position TECHNIQUE: 2 views of the chest, four views of the sternum COMPARISON: Chest 03/12/2015 IMPRESSION: There is a new left lower chest wall AICD with a single lead projecting over the left upper chest wall. There is no pneumothorax. There are no focal infiltrates or effusions. Sternotomy wires are again noted without cardiomegaly. Signed: Tacos Abdi Verified Date/Time: 12/27/2019 10:16:20 Reading Location: [facility] Radiology Reading Room sternum 2 views [id number] 10:16:00Interface, External Ris In - 12/27/2019 10:18 AM CDTFINAL REPORT CLINICAL HISTORY: assess ICD lead position TECHNIQUE: 2 views of the chest, four views of the sternum COMPARISON: Chest 03/12/2015 IMPRESSION: There is a new left lower chest wall AICD with a single lead projecting over the left upper chest wall. There is no pneumothorax. There are no focal infiltrates or effusions. Sternotomy wires are again noted without cardiomegaly. Signed: Tacos Abdi Verified Date/Time: 12/27/2019 10:16:20 Reading Location: [facility] Radiology Reading [facility] [id number] 10:16:00Interface, External Ris In - 12/27/2019 10:18 AM CDTFINAL REPORT CLINICAL HISTORY: assess ICD lead position TECHNIQUE: 2 views of the chest, four views of the sternum COMPARISON: Chest 03/12/2015 IMPRESSION: There is a new left lower chest wall AICD with a single lead projecting over the left upper chest wall. There is no pneumothorax. There are no focal infiltrates or effusions. Sternotomy wires are again noted without cardiomegaly. Signed: Tacos Abdi Verified Date/Time: 12/27/2019 10:16:20 [facility] Electronically signed by: TACOS ABDI M.D. o luis 12/27/2019 10:16 AM [facility] [id number] 08:25:00* Test Item Value Reference Range Interpretation Comments POC-GLUCOSE METER (STEWART) (test code = 1538) 81 mg/dL 70-110 : TESTED AT [facility] [address], [address]: Car Shakeout Operator/Crew Leader ID = [id number] for SONAL MORALES Blood [id number] 07:01:00* Test Item Value Reference Range Interpretation Comments Result (test code = 6463-4) No growth in 5 days [facility] [id number] 07:01:00* Test Item Value Reference Range Interpretation Comments CULTURE (BEAKER) (test code = 1095) No growth in 5 days BLOOD [id number] 06:01:00* Test Item Value Reference Range Interpretation Comments CULTURE (BEAKER) (test code = 1095) No growth in 5 days BASIC METABOLIC [id number] 05:50:00* Test Item Value Reference Range Interpretation Comments SODIUM (BEAKER) (test code = 381) 138 meq/L 136-145 POTASSIUM (BEAKER) (test code = 379) 5.2 meq/L 3.5-5.1 H CHLORIDE (BEAKER) (test code = 382) 103 meq/L 98-107 CO2 (BEAKER) (test code = 355) 31 meq/L 22-29 H BLOOD UREA NITROGEN (BEAKER) (test code = 354) 28 mg/dL 7-21 H CREATININE (BEAKER) (test code = 358) 1.83 mg/dL 0.57-1.25 H GLUCOSE RANDOM (BEAKER) (test code = 652) 90 mg/dL 70-105 CALCIUM (BEAKER) (test code = 697) 9.4 mg/dL 8.4-10.2 EGFR (BEAKER) (test code = 1092) INSUFFICIENT CLINICAL DATA TO CALCULATE ESTIMATED GFR. Car Shakeout Operator ID - LULU [id number] 05:19:00* Test Item Value Reference Range Interpretation Comments PHOSPHORUS (BEAKER) (test code = 604) 3.4 mg/dL 2.3-4.7 Car Shakeout Operator ID - [id number] [id number] 05:19:00* Test Item Value Reference Range Interpretation Comments MAGNESIUM (BEAKER) (test code = 627) 2.2 mg/dL 1.6-2.6 Car Shakeout Operator ID - [id number] LCBC W/PLT COUNT & AUTO [id number] 04:43:00* Test Item Value Reference Range Interpretation Comments WHITE BLOOD CELL COUNT (BEAKER) (test code = 775) 6.0 K/ L 3.5- 10.5 RED BLOOD CELL COUNT (BEAKER) (test code = 761) 2.64 M/ L 3.93-5 .22 L HEMOGLOBIN (BEAKER) (test code = 410) 7.8 GM/DL 11.2-15.7 L HEMATOCRIT (BEAKER) (test code = 411) 26.1 % 34.1-44.9 L MEAN CORPUSCULAR VOLUME (BEAKER) (test code = 753) 98.9 fL 79. 4-94.8 H MEAN CORPUSCULAR HEMOGLOBIN (BEAKER) (test code = 751) 29.5 pg 25.6-32.2 MEAN CORPUSCULAR HEMOGLOBIN CONC (BEAKER) (test code = 752) 29.9 GM/DL 32.2-35.5 L RED CELL DISTRIBUTION WIDTH (BEAKER) (test code = 412) 16.9 % 11.7-14.4 H PLATELET COUNT (BEAKER) (test code = 756) 231 K/CU MM 150-450 MEAN PLATELET VOLUME (BEAKER) (test code = 754) 9.1 fL 9.4-12 .3 L NUCLEATED RED BLOOD CELLS (BEAKER) (test code = 413) 0 /100 WBC 0 -0 NEUTROPHILS RELATIVE PERCENT (BEAKER) (test code = 429) 49 % LYMPHOCYTES RELATIVE PERCENT (BEAKER) (test code = 430) 34 % MONOCYTES RELATIVE PERCENT (BEAKER) (test code = 431) 9 % EOSINOPHILS RELATIVE PERCENT (BEAKER) (test code = 432) 7 % BASOPHILS RELATIVE PERCENT (BEAKER) (test code = 437) 1 % NEUTROPHILS ABSOLUTE COUNT (BEAKER) (test code = 670) 2.94 K/ L 1.56-6.13 LYMPHOCYTES ABSOLUTE COUNT (BEAKER) (test code = 414) 2.05 K/ L 1.18-3.74 MONOCYTES ABSOLUTE COUNT (BEAKER) (test code = 415) 0.53 K/ L 0. 24-0.36 H EOSINOPHILS ABSOLUTE COUNT (BEAKER) (test code = 416) 0.39 K/ L 0.04-0.36 H BASOPHILS ABSOLUTE COUNT (BEAKER) (test code = 417) 0.04 K/ L 0. 01-0.08 IMMATURE GRANULOCYTES-RELATIVE PERCENT (BEAKER) (test code = 2801) 0 % 0-1 POCT-GLUCOSE [id number] 21:36:00* Test Item Value Reference Range Interpretation Comments POC-GLUCOSE METER (BEAKER) (test code = 1538) 96 mg/dL 70-110 : TESTED AT [facility] [address], [address]: Car Shakeout Operator/Crew Leader ID = [id number] for LIS GONZALES POCT-GLUCOSE [id number] 08:12:00* Test Item Value Reference Range Interpretation Comments POC-GLUCOSE METER (BEAKER) (test code = 1538) 80 mg/dL 70-110 : TESTED AT [facility] [address], [id number]: Car Shakeout Operator/Crew Leader ID = [id number] for JOHANNY BRAGG BASIC METABOLIC [id number] 07:36:00* Test Item Value Reference Range Interpretation Comments SODIUM (BEAKER) (test code = 381) 138 meq/L 136-145 POTASSIUM (BEAKER) (test code = 379) 5.1 meq/L 3.5-5.1 CHLORIDE (BEAKER) (test code = 382) 104 meq/L 98-107 CO2 (BEAKER) (test code = 355) 31 meq/L 22-29 H BLOOD UREA NITROGEN (BEAKER) (test code = 354) 22 mg/dL 7-21 H CREATININE (BEAKER) (test code = 358) 1.52 mg/dL 0.57-1.25 H GLUCOSE RANDOM (BEAKER) (test code = 652) 85 mg/dL 70-105 CALCIUM (BEAKER) (test code = 697) 9.1 mg/dL 8.4-10.2 EGFR (BEAKER) (test code = 1092) INSUFFICIENT CLINICAL DATA TO CALCULATE ESTIMATED GFR. Car Shakeout Operator ID - [id number] 07:35:00* Test Item Value Reference Range Interpretation Comments PHOSPHORUS (BEAKER) (test code = 604) 3.3 mg/dL 2.3-4.7 Car Shakeout Operator ID - [id number] 07:35:00* Test Item Value Reference Range Interpretation Comments MAGNESIUM (BEAKER) (test code = 627) 2.2 mg/dL 1.6-2.6 Car Shakeout Operator ID - NTPCBC W/PLT COUNT & AUTO [id number] 07:06:00* Test Item Value Reference Range Interpretation Comments WHITE BLOOD CELL COUNT (BEAKER) (test code = 775) 5.8 K/ L 3.5- 10.5 RED BLOOD CELL COUNT (BEAKER) (test code = 761) 2.54 M/ L 3.93-5 .22 L HEMOGLOBIN (BEAKER) (test code = 410) 7.6 GM/DL 11.2-15.7 L HEMATOCRIT (BEAKER) (test code = 411) 25.4 % 34.1-44.9 L MEAN CORPUSCULAR VOLUME (BEAKER) (test code = 753) 100.0 fL 79. 4-94.8 H MEAN CORPUSCULAR HEMOGLOBIN (BEAKER) (test code = 751) 29.9 pg 25.6-32.2 MEAN CORPUSCULAR HEMOGLOBIN CONC (BEAKER) (test code = 752) 29.9 GM/DL 32.2-35.5 L RED CELL DISTRIBUTION WIDTH (BEAKER) (test code = 412) 16.9 % 11.7-14.4 H PLATELET COUNT (BEAKER) (test code = 756) 216 K/CU MM 150-450 MEAN PLATELET VOLUME (BEAKER) (test code = 754) 9.5 fL 9.4-12 .3 NUCLEATED RED BLOOD CELLS (BEAKER) (test code = 413) 0 /100 WBC 0 -0 NEUTROPHILS RELATIVE PERCENT (BEAKER) (test code = 429) 42 % LYMPHOCYTES RELATIVE PERCENT (BEAKER) (test code = 430) 40 % MONOCYTES RELATIVE PERCENT (BEAKER) (test code = 431) 10 % EOSINOPHILS RELATIVE PERCENT (BEAKER) (test code = 432) 8 % BASOPHILS RELATIVE PERCENT (BEAKER) (test code = 437) 1 % NEUTROPHILS ABSOLUTE COUNT (BEAKER) (test code = 670) 2.42 K/ L 1.56-6.13 LYMPHOCYTES ABSOLUTE COUNT (BEAKER) (test code = 414) 2.30 K/ L 1.18-3.74 MONOCYTES ABSOLUTE COUNT (BEAKER) (test code = 415) 0.57 K/ L 0. 24-0.36 H EOSINOPHILS ABSOLUTE COUNT (BEAKER) (test code = 416) 0.44 K/ L 0.04-0.36 H BASOPHILS ABSOLUTE COUNT (BEAKER) (test code = 417) 0.06 K/ L 0. 01-0.08 IMMATURE GRANULOCYTES-RELATIVE PERCENT (BEAKER) (test code = 2801) 0 % 0-1 POCT-GLUCOSE [id number] 22:34:00* Test Item Value Reference Range Interpretation Comments POC-GLUCOSE METER (BEAKER) (test code = 1538) 121 mg/dL 70-110 H : TESTED AT [place] [id number] [facility], [address]: Car Shakeout Operator/Crew Leader ID = [id number] for LIS GONZALES POCT-GLUCOSE [id number] 17:27:00* Test Item Value Reference Range Interpretation Comments POC-GLUCOSE METER (BEAKER) (test code = 1538) 94 mg/dL 70-110 : TESTED AT [address], [address]: Car Shakeout Operator/Crew Leader ID = [id number] for JOHANNY BRAGG POCT-GLUCOSE [id number] 12:31:00* Test Item Value Reference Range Interpretation Comments POC-GLUCOSE METER (BEAKER) (test code = 1538) 91 mg/dL 70-110 : TESTED AT [address], [address]: Car Shakeout Operator/Crew Leader ID = [id number] for JOHANNY BRAGG POCT-GLUCOSE [id number] 08:59:00* Test Item Value Reference Range Interpretation Comments POC-GLUCOSE METER (BEAKER) (test code = 1538) 81 mg/dL 70-110 : TESTED AT [address], [address]: Car Shakeout Operator/Crew Leader ID = [id number] for JOHANNY BRAGG BASIC METABOLIC [id number] 06:09:00* Test Item Value Reference Range Interpretation Comments SODIUM (BEAKER) (test code = 381) 138 meq/L 136-145 POTASSIUM (BEAKER) (test code = 379) 4.9 meq/L 3.5-5.1 CHLORIDE (BEAKER) (test code = 382) 102 meq/L 98-107 CO2 (BEAKER) (test code = 355) 28 meq/L 22-29 BLOOD UREA NITROGEN (BEAKER) (test code = 354) 24 mg/dL 7-21 H CREATININE (BEAKER) (test code = 358) 1.48 mg/dL 0.57-1.25 H GLUCOSE RANDOM (BEAKER) (test code = 652) 84 mg/dL 70-105 CALCIUM (BEAKER) (test code = 697) 8.7 mg/dL 8.4-10.2 EGFR (BEAKER) (test code = 1092) INSUFFICIENT CLINICAL DATA TO CALCULATE ESTIMATED GFR. Car Shakeout Operator ID - LULU [id number] 05:47:00* Test Item Value Reference Range Interpretation Comments PHOSPHORUS (BEAKER) (test code = 604) 3.3 mg/dL 2.3-4.7 Car Shakeout Operator ID - LULU [id number] 05:47:00* Test Item Value Reference Range Interpretation Comments MAGNESIUM (BEAKER) (test code = 627) 2.3 mg/dL 1.6-2.6 Car Shakeout Operator ID - LULU LCBC W/PLT COUNT & AUTO [id number] 05:34:00* Test Item Value Reference Range Interpretation Comments WHITE BLOOD CELL COUNT (BEAKER) (test code = 775) 6.0 K/ L 3.5- 10.5 RED BLOOD CELL COUNT (BEAKER) (test code = 761) 2.42 M/ L 3.93-5 .22 L HEMOGLOBIN (BEAKER) (test code = 410) 7.2 GM/DL 11.2-15.7 L HEMATOCRIT (BEAKER) (test code = 411) 23.9 % 34.1-44.9 L MEAN CORPUSCULAR VOLUME (BEAKER) (test code = 753) 98.8 fL 79. 4-94.8 H MEAN CORPUSCULAR HEMOGLOBIN (BEAKER) (test code = 751) 29.8 pg 25.6-32.2 MEAN CORPUSCULAR HEMOGLOBIN CONC (BEAKER) (test code = 752) 30.1 GM/DL 32.2-35.5 L RED CELL DISTRIBUTION WIDTH (BEAKER) (test code = 412) 17.1 % 11.7-14.4 H PLATELET COUNT (BEAKER) (test code = 756) 217 K/CU MM 150-450 MEAN PLATELET VOLUME (BEAKER) (test code = 754) 9.3 fL 9.4-12 .3 L NUCLEATED RED BLOOD CELLS (BEAKER) (test code = 413) 0 /100 WBC 0 -0 NEUTROPHILS RELATIVE PERCENT (BEAKER) (test code = 429) 46 % LYMPHOCYTES RELATIVE PERCENT (BEAKER) (test code = 430) 34 % MONOCYTES RELATIVE PERCENT (BEAKER) (test code = 431) 9 % EOSINOPHILS RELATIVE PERCENT (BEAKER) (test code = 432) 10 % BASOPHILS RELATIVE PERCENT (BEAKER) (test code = 437) 1 % NEUTROPHILS ABSOLUTE COUNT (BEAKER) (test code = 670) 2.75 K/ L 1.56-6.13 LYMPHOCYTES ABSOLUTE COUNT (BEAKER) (test code = 414) 2.03 K/ L 1.18-3.74 MONOCYTES ABSOLUTE COUNT (BEAKER) (test code = 415) 0.56 K/ L 0. 24-0.36 H EOSINOPHILS ABSOLUTE COUNT (BEAKER) (test code = 416) 0.62 K/ L 0.04-0.36 H BASOPHILS ABSOLUTE COUNT (BEAKER) (test code = 417) 0.04 K/ L 0. 01-0.08 IMMATURE GRANULOCYTES-RELATIVE PERCENT (BEAKER) (test code = 2801) 0 % 0-1 POCT-GLUCOSE [id number] 21:28:00* Test Item Value Reference Range Interpretation Comments POC-GLUCOSE METER (BEAKER) (test code = 1538) 109 mg/dL 70-110 : TESTED AT [address], [address]: Car Shakeout Operator/Crew Leader ID = [id number] for Mine Trevino BASIC METABOLIC [id number] 21:12:00* Test Item Value Reference Range Interpretation Comments SODIUM (BEAKER) (test code = 381) 139 meq/L 136-145 POTASSIUM (BEAKER) (test code = 379) 5.3 meq/L 3.5-5.1 H Specimen slightly hemolyzed CHLORIDE (BEAKER) (test code = 382) 103 meq/L 98-107 CO2 (BEAKER) (test code = 355) 31 meq/L 22-29 H BLOOD UREA NITROGEN (BEAKER) (test code = 354) 26 mg/dL 7-21 H CREATININE (BEAKER) (test code = 358) 1.49 mg/dL 0.57-1.25 H Specimen slightly hemolyzed GLUCOSE RANDOM (BEAKER) (test code = 652) 115 mg/dL 70-105 H CALCIUM (BEAKER) (test code = 697) 9.0 mg/dL 8.4-10.2 EGFR (BEAKER) (test code = 1092) INSUFFICIENT CLINICAL DATA TO CALCULATE ESTIMATED GFR. Car Shakeout Operator ID - EVANGELINA ASIC METABOLIC [id number] 19:28:00* Test Item Value Reference Range Interpretation Comments SODIUM (BEAKER) (test code = 381) 137 meq/L 136-145 POTASSIUM (BEAKER) (test code = 379) 6.0 meq/L 3.5-5.1 HH CHLORIDE (BEAKER) (test code = 382) 101 meq/L 98-107 CO2 (BEAKER) (test code = 355) 29 meq/L 22-29 BLOOD UREA NITROGEN (BEAKER) (test code = 354) 25 mg/dL 7-21 H CREATININE (BEAKER) (test code = 358) 1.51 mg/dL 0.57-1.25 H GLUCOSE RANDOM (BEAKER) (test code = 652) 99 mg/dL 70-105 CALCIUM (BEAKER) (test code = 697) 9.2 mg/dL 8.4-10.2 EGFR (BEAKER) (test code = 1092) INSUFFICIENT CLINICAL DATA TO CALCULATE ESTIMATED GFR. Car Shakeout Operator ID - EVANGELINA MPOCT-GLUCOSE [id number] 16:59:00* Test Item Value Reference Range Interpretation Comments POC-GLUCOSE METER (BEAKER) (test code = 1538) 135 mg/dL 70-110 H : TESTED AT [address], [address]: Car Shakeout Operator/Crew Leader ID = [id number] for GEOVANNI HAYDEN [id number] 16:18:00* Test Item Value Reference Range Interpretation Comments Potassium (test code = 2823-3) 6.0 meq/L 3.5-5.1 HH JEANINE (test code = JEANINE) Car Shakeout Operator ID - EVANGELINA M Lab Interpretation (test code = 98505-9) [id number]* Test Item Value Reference Range Interpretation Comments POTASSIUM (BEAKER) (test code = 379) 6.0 meq/L 3.5-5.1 HH Car Shakeout Operator ID - EVANGELINA MBASIC METABOLIC [id number] 13:07:00* Test Item Value Reference Range Interpretation Comments SODIUM (BEAKER) (test code = 381) 136 meq/L 136-145 POTASSIUM (BEAKER) (test code = 379) 5.7 meq/L 3.5-5.1 H CHLORIDE (BEAKER) (test code = 382) 101 meq/L 98-107 CO2 (BEAKER) (test code = 355) 29 meq/L 22-29 BLOOD UREA NITROGEN (BEAKER) (test code = 354) 24 mg/dL 7-21 H CREATININE (BEAKER) (test code = 358) 1.54 mg/dL 0.57-1.25 H GLUCOSE RANDOM (BEAKER) (test code = 652) 92 mg/dL 70-105 CALCIUM (BEAKER) (test code = 697) 9.0 mg/dL 8.4-10.2 EGFR (BEAKER) (test code = 1092) INSUFFICIENT CLINICAL DATA TO CALCULATE ESTIMATED GFR. Car Shakeout Operator ID - LULU [id number] 12:59:00* Test Item Value Reference Range Interpretation Comments PHOSPHORUS (BEAKER) (test code = 604) 3.4 mg/dL 2.3-4.7 Car Shakeout Operator ID - LULU [id number] 12:59:00* Test Item Value Reference Range Interpretation Comments MAGNESIUM (BEAKER) (test code = 627) 2.5 mg/dL 1.6-2.6 Car Shakeout Operator ID - LULU LPOCT-GLUCOSE [id number] 12:32:00* Test Item Value Reference Range Interpretation Comments POC-GLUCOSE METER (BEAKER) (test code = 1538) 90 mg/dL 70-110 : TESTED AT [facility] [address] [facility], [address]: Car Shakeout Operator/Crew Leader ID = [id number] for GEOVANNI HAYDEN CBC W/PLT COUNT & AUTO [id number] 12:28:00* Test Item Value Reference Range Interpretation Comments WHITE BLOOD CELL COUNT (BEAKER) (test code = 775) 6.8 K/ L 3.5- 10.5 RED BLOOD CELL COUNT (BEAKER) (test code = 761) 2.61 M/ L 3.93-5 .22 L HEMOGLOBIN (BEAKER) (test code = 410) 7.9 GM/DL 11.2-15.7 L HEMATOCRIT (BEAKER) (test code = 411) 26.5 % 34.1-44.9 L MEAN CORPUSCULAR VOLUME (BEAKER) (test code = 753) 101.5 fL 79. 4-94.8 H MEAN CORPUSCULAR HEMOGLOBIN (BEAKER) (test code = 751) 30.3 pg 25.6-32.2 MEAN CORPUSCULAR HEMOGLOBIN CONC (BEAKER) (test code = 752) 29.8 GM/DL 32.2-35.5 L RED CELL DISTRIBUTION WIDTH (BEAKER) (test code = 412) 17.0 % 11.7-14.4 H PLATELET COUNT (BEAKER) (test code = 756) 237 K/CU MM 150-450 MEAN PLATELET VOLUME (BEAKER) (test code = 754) 9.7 fL 9.4-12 .3 NUCLEATED RED BLOOD CELLS (BEAKER) (test code = 413) 0 /100 WBC 0 -0 NEUTROPHILS RELATIVE PERCENT (BEAKER) (test code = 429) 48 % LYMPHOCYTES RELATIVE PERCENT (BEAKER) (test code = 430) 30 % MONOCYTES RELATIVE PERCENT (BEAKER) (test code = 431) 10 % EOSINOPHILS RELATIVE PERCENT (BEAKER) (test code = 432) 11 % BASOPHILS RELATIVE PERCENT (BEAKER) (test code = 437) 1 % NEUTROPHILS ABSOLUTE COUNT (BEAKER) (test code = 670) 3.22 K/ L 1.56-6.13 LYMPHOCYTES ABSOLUTE COUNT (BEAKER) (test code = 414) 2.05 K/ L 1.18-3.74 MONOCYTES ABSOLUTE COUNT (BEAKER) (test code = 415) 0.68 K/ L 0. 24-0.36 H EOSINOPHILS ABSOLUTE COUNT (BEAKER) (test code = 416) 0.76 K/ L 0.04-0.36 H BASOPHILS ABSOLUTE COUNT (BEAKER) (test code = 417) 0.05 K/ L 0. 01-0.08 IMMATURE GRANULOCYTES-RELATIVE PERCENT (BEAKER) (test code = 2801) 0 % 0-1 POCT-GLUCOSE [id number] 07:29:00* Test Item Value Reference Range Interpretation Comments POC-GLUCOSE METER (BEAKER) (test code = 1538) 87 mg/dL 70-110 : TESTED AT [facility] [address] [facility], [address]: Car Shakeout Operator/Crew Leader ID = [id number] for GEOVANNI HAYDEN POCT-GLUCOSE [id number] 21:44:00* Test Item Value Reference Range Interpretation Comments POC-GLUCOSE METER (BEAKER) (test code = 1538) 101 mg/dL 70-110 : TESTED AT [facility] [address] [facility], [address]: Car Shakeout Operator/Crew Leader ID = [id number] for JUANA EGAN VANCOMYCIN LEVEL, [id number] 17:33:00* Test Item Value Reference Range Interpretation Comments VANCOMYCIN TROUGH (BEAKER) (test code = 522) 19.6 ug/mL 10.0-20.0 Car Shakeout Operator ID - EVANGELINA MPOCT-GLUCOSE [id number] 17:31:00* Test Item Value Reference Range Interpretation Comments POC-GLUCOSE METER (BEAKER) (test code = 1538) 88 mg/dL 70-110 : TESTED AT [facility] [address] [facility], [address]: Car Shakeout Operator/Crew Leader ID = [id number] for NAYE RUSSELL POCT-GLUCOSE [id number] 12:48:00* Test Item Value Reference Range Interpretation Comments POC-GLUCOSE METER (BEAKER) (test code = 1538) 76 mg/dL 70-110 : TESTED AT [place] [id number] [facility], [address]: Car Shakeout Operator/Crew Leader ID = [id number] for NAYE RUSSELL CT, [id number] 09:43:00Po contrastAnesthesia:->NoneFINAL REPORT ABDOMINAL AND PELVIS CT DATED 12/23/2019 [...] kidneys are normal in size. No hydronephrosis, hy droureter, urolithiasis is seen. The opacified small bowel is unremarkable. Dive rticular disease is seen in the large bowel without diverticulitis. Appendix is not visualized. Vascular calcification is seen in the abdominal aorta, splenic, bilateral renal, superior mesenteric, inferior mesenteric, and bilateral iliac a rteries. No mass, pneumoperitoneum or ascites is present. IMPRESSION: 1. No pne umoperitoneum or loculated fluid collection the abdomen or pelvis.2. Vascular ca lcification in the abdominal aorta and branch vessels.3. Diverticulosis without diverticulitis. Signed: Kevon Petersen MDReport Verified Date/Time: 12/23/2019 09: 43:40 Reading Location: [facility] C013X Ortho Consult Reading Room Electronica lly signed by: KEVON PETERSEN M.D. on 12/23/2019 09:[address] abdomen/pelvis without iv [id number] 09:43:00Interface, External Ris In - 12/23/2019 9:45 AM CDTFINAL REPORT ABDOMINAL AND PELVIS CT DATED 12/23/2019 [...] present. IMPRESSION: 1. No pneumoperitoneum or loculated fluid collection the abdomen or pelvis.2. Vascular calcification in the abdominal aorta and branch vessels.3. Diverticulosis without diverticulitis. Signed: Kevon Petersen MDReport Verified Date/Time: 12/23/2019 09:43:40 Reading Location: [facility] B1 C013X Ortho Consult Reading [facility] [id number] 08:11:00* Test Item Value Reference Range Interpretation Comments POC-GLUCOSE METER (BEAKER) (test code = 1538) 74 mg/dL 70-110 : TESTED AT [facility] [address] [place] [address], [address]: Car Shakeout Operator/Crew Leader ID = [id number] for NAYE RUSSELL BASIC METABOLIC [id number] 06:23:00* Test Item Value Reference Range Interpretation Comments SODIUM (BEAKER) (test code = 381) 139 meq/L 136-145 POTASSIUM (BEAKER) (test code = 379) 4.7 meq/L 3.5-5.1 CHLORIDE (BEAKER) (test code = 382) 104 meq/L 98-107 CO2 (BEAKER) (test code = 355) 30 meq/L 22-29 H BLOOD UREA NITROGEN (BEAKER) (test code = 354) 29 mg/dL 7-21 H CREATININE (BEAKER) (test code = 358) 1.46 mg/dL 0.57-1.25 H GLUCOSE RANDOM (BEAKER) (test code = 652) 104 mg/dL 70-105 CALCIUM (BEAKER) (test code = 697) 8.6 mg/dL 8.4-10.2 EGFR (BEAKER) (test code = 1092) INSUFFICIENT CLINICAL DATA TO CALCULATE ESTIMATED GFR. Car Shakeout Operator ID - LULU [id number] 06:17:00* Test Item Value Reference Range Interpretation Comments PHOSPHORUS (BEAKER) (test code = 604) 2.9 mg/dL 2.3-4.7 Car Shakeout Operator ID - LULU [id number] 06:17:00* Test Item Value Reference Range Interpretation Comments MAGNESIUM (BEAKER) (test code = 627) 2.3 mg/dL 1.6-2.6 Car Shakeout Operator ID - LULU LCBC W/PLT COUNT & AUTO [id number] 05:52:00* Test Item Value Reference Range Interpretation Comments WHITE BLOOD CELL COUNT (BEAKER) (test code = 775) 6.1 K/ L 3.5- 10.5 RED BLOOD CELL COUNT (BEAKER) (test code = 761) 2.41 M/ L 3.93-5 .22 L HEMOGLOBIN (BEAKER) (test code = 410) 7.0 GM/DL 11.2-15.7 L HEMATOCRIT (BEAKER) (test code = 411) 23.7 % 34.1-44.9 L MEAN CORPUSCULAR VOLUME (BEAKER) (test code = 753) 98.3 fL 79. 4-94.8 H MEAN CORPUSCULAR HEMOGLOBIN (BEAKER) (test code = 751) 29.0 pg 25.6-32.2 MEAN CORPUSCULAR HEMOGLOBIN CONC (BEAKER) (test code = 752) 29.5 GM/DL 32.2-35.5 L RED CELL DISTRIBUTION WIDTH (BEAKER) (test code = 412) 17.1 % 11.7-14.4 H PLATELET COUNT (BEAKER) (test code = 756) 219 K/CU MM 150-450 MEAN PLATELET VOLUME (BEAKER) (test code = 754) 9.9 fL 9.4-12 .3 NUCLEATED RED BLOOD CELLS (BEAKER) (test code = 413) 0 /100 WBC 0 -0 NEUTROPHILS RELATIVE PERCENT (BEAKER) (test code = 429) 44 % LYMPHOCYTES RELATIVE PERCENT (BEAKER) (test code = 430) 36 % MONOCYTES RELATIVE PERCENT (BEAKER) (test code = 431) 10 % EOSINOPHILS RELATIVE PERCENT (BEAKER) (test code = 432) 10 % BASOPHILS RELATIVE PERCENT (BEAKER) (test code = 437) 1 % NEUTROPHILS ABSOLUTE COUNT (BEAKER) (test code = 670) 2.65 K/ L 1.56-6.13 LYMPHOCYTES ABSOLUTE COUNT (BEAKER) (test code = 414) 2.16 K/ L 1.18-3.74 MONOCYTES ABSOLUTE COUNT (BEAKER) (test code = 415) 0.60 K/ L 0. 24-0.36 H EOSINOPHILS ABSOLUTE COUNT (BEAKER) (test code = 416) 0.61 K/ L 0.04-0.36 H BASOPHILS ABSOLUTE COUNT (BEAKER) (test code = 417) 0.05 K/ L 0. 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 . Summary 1. Enlarged LV size with low normal LV systolic function. LA size is enlarged. No evidence of left atrial or left atrial appendage thrombus. 2. Enlarged RV with mild to mode rately reduced RV systolic function. RA size is dilated. 3. Severe aortic valve stenosis. AoV area by 3D planimtery is in the range of 0.93 cm2. AoV area at re st by continuity equation is in the range of 0.94 cm2. AoV resting dimensionless obstructive index (DOI) - 0.27. Peak/mean gradient of 54/32 mmHg. Cikcfcme-lq-c evere AoV cusp calcification. Normal tri-leaflet Aortic Valve. Moderate AoV cusp thickening. 4. Rjuw-cw-oqujrspj MV leaflet thickening and calcification. Mild mitral annular calcification. Moderate central mitral regurgitation. 5. A paten t foramen ovale (PFO) is demonstrated by color Doppler with continuous left to r ight shunting. Previous Study Compared to the prior TTE, the gradients were bet ter interrogated. Signature Findings Rhythm/BP 3D imaging (cpt 51289) rendering with interp retation was performed. Left Enlarged LV size with low nor mal LV systolic function. Ventricle Left Atrium LA size is enlarged . No evidence of left atrial or left atrial appendage thrombus. Right Enlarged RV with mild to moderately reduced RV systolic Ventricle function. Right Atrium RA size is dilated. Atrial A patent foramen ovale (PFO) is demonstrated by color Doppler Septum with continuous left to right shuntin g. Aortic Valve Normal tri-leaflet Aortic Valve. Moderate AoV cusp thickening. Bzlnekub-if-psakml AoV cusp calcification. Severe aort ic valve stenosis. AoV resting dimensionless obstructive index (DOI ) - 0.27. AoV area by 3D planimtery is in the range of 0.93 cm2. Ao V area at rest by continuity equation is in the range of 0.94 cm2 ( 0.47 cm2/BSA). Mitral Valve Duow-tn-jantkqcz MV leaflet thickening and calcifi cation. Mild mitral annular calcification. Moderate ce ntral mitral regurgitation. Tricuspid Mild tricuspid regurgitation. Valve Estimated peak systolic PA pressure is 40-45 mmHg + RA pressur e. (RA pressure indeterminate on this exam) Pulmonic Normal PV structure ap pears normal by available views. Valve Aorta Aortic root size (SInus of Valsalva diameter) is normal . Pericardium No significant pericardial effusion is visualized. Chambers/Structures Left Ventricle LVOT Diameter: 2.1 cm Dopple r/Quantitative Measurements Aortic Valve Peak Velocity: 3.64 m/s Mean Velocity: 2.65 m/s Peak Gradient: 53 mmHg Mean Gradi ent: 32 mmHg AV Area (continuity): 0.94 cm^2 AV VTI: 90.4 cm AV DVI: 0.27 LVOT Peak Velocity: 0.97 m/s Peak Gradient: 4 mmHg Mean Velocity: 0.69 m/s Mean Gradient: 2 mmHg LVOT Diameter: 2.1 cm LVOT VTI: 24.5 cm LVOT Area: 3.46 cm^2 LVOT SV:84.82 ml LVOT CO: 4.92 l/min LVOT CI: 2.46 l/min/m^2 [facility] POCT-GLUCOSE [id number] 21:31:00* Test Item Value Reference Range Interpretation Comments POC-GLUCOSE METER (BEAKER) (test code = 1538) 111 mg/dL 70-110 H : TESTED AT [facility] [address] [facility], [address]: Car Shakeout Operator/Crew Leader ID = [id number] for Mine Trevino POCT-GLUCOSE [id number] 17:08:00* Test Item Value Reference Range Interpretation Comments POC-GLUCOSE METER (BEAKER) (test code = 1538) 112 mg/dL 70-110 H : TESTED AT [facility] [address] [facility], [address]: Car Shakeout Operator/Crew Leader ID = [id number] for GEOVANNI HAYDEN POCT-GLUCOSE [id number] 14:34:00* Test Item Value Reference Range Interpretation Comments POC-GLUCOSE METER (BEAKER) (test code = 1538) 90 mg/dL 70-110 : TESTED AT [facility] [address] [facility], [address]: Car Shakeout Operator/Crew Leader ID = [id number] for GEOVANNI HAYDEN BLOOD [id number] 10:03:00* Test Item Value Reference Range Interpretation Comments CULTURE (BEAKER) (test code = 1095) A From Aerobic And Anaerobic Bottles Same organism has been isolated from cultures(s) of the same body site and collection date. Repeat identification and susceptibility testing performed only after consultation with the clinical microbiology laboratory.Refer to previous culture ofMethicillin resistant Staphylococcus aureus GRAM STAIN RESULT (Flash ValetAKER) (test code = 1123) From aer obic and anaerobic bottles: gram positive cocci in clusters BLOOD [id number] 10:02:00* Test Item Value Reference Range Interpretation Comments CULTURE (BEAKER) (test code = 1095) METHICILLIN RESISTANT ST APHYLOCOCCUS AUREUS A From Aerobic And Anaerobic B ottles Methicillin resistant Staphylococcus aureus Clindamycin (test code = 10) R Daptomycin (test code = 59) S Erythromycin (test code = 4) R Linezolid (test code = 40) S Oxacillin (test code = 14) R Rifampin (test code = 43) S Tetracycline (test code = 2) R Trimethoprim + Sulfamethoxazole (test code = 47) S Vancomycin (test code = 13) S Ceftaroline (test code = 236) Susceptibl e <=1 , Dose Dependent Susceptible >1 , Resistant S GRAM STAIN RESULT (BEAKER) (test code = 1123) From aer obic and anaerobic bottles: gram positive cocci in clusters POCT-GLUCOSE [id number] 08:17:00* Test Item Value Reference Range Interpretation Comments POC-GLUCOSE METER (BEAKER) (test code = 1538) 81 mg/dL 70-110 : TESTED AT [facility] [address] [facility], [address]: Car Shakeout Operator/Crew Leader ID = [id number] for GEOVANNI HAYDEN SARS-COV2/RT-PCR ([facility])2019-12-22 07:54:00* Test Item Value Reference Range Interpretation Comments SARS-COV2/RT-PCR (test code = 6918585) Not Detected Not Detected, N egative SARS-COV-2 PERFORMING LAB (test code = 8287159) [facility] Negative results do not preclude SARS-CoV-2 infection and should not be used as the sole basis for patient management decisions. Negative results must be combin ed with clinical observations, patient history, and epidemiological information. A false negative result may occur if a specimen is improperly collected, transp orted or handled.The limit of detection for this assay is 250 copies/mL.This MIRIAM S CoV-2 test is a rapid, real-time RT-PCR test intended for the qualitative dete ction of nucleic acid from SARS-CoV-2 in a nasopharyngeal swab specimen collecte d from individuals suspected of COVID-19 by their healthcare provider.This test has not been Food and Drug Administration (FDA) cleared or approved and has been authorized by FDA under an Emergency Use Authorization (EUA). This EUA will be effective until the declaration that circumstances exist justifying the authoriz ation of the emergency use of in vitro diagnostic tests for detection and/or naty gnosis of COVID-19 is terminated under Section 564(b)(2) of the Act or the EUA i s revoked under Section 564(g) of the Act.Fact Sheet for Healthcare Providers:ht tps://www.[employer]/Documents/Xpert%20Xpress%20SARS%20CoV-2/Fact%20Sheets/302- 7612%82XCVM-DDO-9%20HEALTHCARE%20PROVIDERS%20FACT%20SHEET.pdfFact Sheet for Heal thcare Patients:https://www.[employer]/Documents/Xpert%20Xpress%20SARS%20CoV-2/ Fact%20Sheets/302-3801%63MOGC-NCG-3%20PATIENT%20FACT%20SHEET.pdfPerforming Labor atory:[facility], [place] [address]MAI W/PLT COUNT & AUTO [id number] 07:22:00* Test Item Value Reference Range Interpretation Comments WHITE BLOOD CELL COUNT (BEAKER) (test code = 775) 6.4 K/ L 3.5- 10.5 RED BLOOD CELL COUNT (BEAKER) (test code = 761) 2.68 M/ L 3.93-5 .22 L HEMOGLOBIN (BEAKER) (test code = 410) 7.9 GM/DL 11.2-15.7 L HEMATOCRIT (BEAKER) (test code = 411) 26.5 % 34.1-44.9 L MEAN CORPUSCULAR VOLUME (BEAKER) (test code = 753) 98.9 fL 79. 4-94.8 H MEAN CORPUSCULAR HEMOGLOBIN (BEAKER) (test code = 751) 29.5 pg 25.6-32.2 MEAN CORPUSCULAR HEMOGLOBIN CONC (BEAKER) (test code = 752) 29.8 GM/DL 32.2-35.5 L RED CELL DISTRIBUTION WIDTH (BEAKER) (test code = 412) 17.1 % 11.7-14.4 H PLATELET COUNT (BEAKER) (test code = 756) 235 K/CU MM 150-450 MEAN PLATELET VOLUME (BEAKER) (test code = 754) 9.8 fL 9.4-12 .3 NUCLEATED RED BLOOD CELLS (BEAKER) (test code = 413) 0 /100 WBC 0 -0 NEUTROPHILS RELATIVE PERCENT (BEAKER) (test code = 429) 45 % LYMPHOCYTES RELATIVE PERCENT (BEAKER) (test code = 430) 34 % MONOCYTES RELATIVE PERCENT (BEAKER) (test code = 431) 12 % EOSINOPHILS RELATIVE PERCENT (BEAKER) (test code = 432) 8 % BASOPHILS RELATIVE PERCENT (BEAKER) (test code = 437) 1 % NEUTROPHILS ABSOLUTE COUNT (BEAKER) (test code = 670) 2.86 K/ L 1.56-6.13 LYMPHOCYTES ABSOLUTE COUNT (BEAKER) (test code = 414) 2.18 K/ L 1.18-3.74 MONOCYTES ABSOLUTE COUNT (BEAKER) (test code = 415) 0.73 K/ L 0. 24-0.36 H EOSINOPHILS ABSOLUTE COUNT (BEAKER) (test code = 416) 0.53 K/ L 0.04-0.36 H BASOPHILS ABSOLUTE COUNT (BEAKER) (test code = 417) 0.05 K/ L 0. 01-0.08 IMMATURE GRANULOCYTES-RELATIVE PERCENT (BEAKER) (test code = 2801) 0 % 0-1 BASIC METABOLIC [id number] 06:06:00* Test Item Value Reference Range Interpretation Comments SODIUM (BEAKER) (test code = 381) 138 meq/L 136-145 POTASSIUM (BEAKER) (test code = 379) 4.7 meq/L 3.5-5.1 Specimen slightly hemolyzed CHLORIDE (BEAKER) (test code = 382) 101 meq/L 98-107 CO2 (BEAKER) (test code = 355) 28 meq/L 22-29 BLOOD UREA NITROGEN (BEAKER) (test code = 354) 36 mg/dL 7-21 H CREATININE (BEAKER) (test code = 358) 1.72 mg/dL 0.57-1.25 H Specimen slightly hemolyzed GLUCOSE RANDOM (BEAKER) (test code = 652) 83 mg/dL 70-105 CALCIUM (BEAKER) (test code = 697) 9.1 mg/dL 8.4-10.2 EGFR (BEAKER) (test code = 1092) INSUFFICIENT CLINICAL DATA TO CALCULATE ESTIMATED GFR. Car Shakeout Operator ID - [id number] 06:01:00* Test Item Value Reference Range Interpretation Comments MAGNESIUM (BEAKER) (test code = 627) 2.3 mg/dL 1.6-2.6 Specimen slightly hemolyzed Car Shakeout Operator ID - [id number] 06:01:00* Test Item Value Reference Range Interpretation Comments PHOSPHORUS (BEAKER) (test code = 604) 3.2 mg/dL 2.3-4.7 Specimen slightly hemolyzed Car Shakeout Operator ID - LAPOCT-GLUCOSE [id number] 21:34:00* Test Item Value Reference Range Interpretation Comments POC-GLUCOSE METER (BEAKER) (test code = 1538) 119 mg/dL 70-110 H : TESTED AT [facility] [address], [address]: Car Shakeout Operator/Crew Leader ID = [id number] for RAHEL GONZALESO Occult blood, [id number] 21:28:00* Test Item Value Reference Range Interpretation Comments Occult blood (test code = 2335-8) Negative Negative Lab Interpretation (test code = 79799-2) [facility] [id number] 21:28:00* Test Item Value Reference Range Interpretation Comments FECAL OCCULT BLOOD (BEAKER) (test code = 618) Negative Negative POCT-GLUCOSE [id number] 17:32:00* Test Item Value Reference Range Interpretation Comments POC-GLUCOSE METER (BEAKER) (test code = 1538) 73 mg/dL 70-110 : TESTED AT [facility] [address], [address]: Car Shakeout Operator/Crew Leader ID = [id number] for JOHANNY BRAGG BLOOD [id number] 16:00:00* Test Item Value Reference Range Interpretation Comments CULTURE (BEAKER) (test code = 1095) No growth in 5 days BLOOD [id number] 16:00:00* Test Item Value Reference Range Interpretation Comments CULTURE (BEAKER) (test code = 1095) No growth in 5 days [id number] 15:02:00* Test Item Value Reference Range Interpretation Comments Ferritin (test code = 2276-4) 431.90 ng/mL 5-275 H JEANINE (test code = JEANINE) Car Shakeout Operator ID - BS Lab Interpretation (test code = 23275-0) [facility]normal [facility] 15:02:00* Test Item Value Reference Range Interpretation Comments FERRITIN (BEAKER) (test code = 361) 431.90 ng/mL 5.00-275.00 H Car Shakeout Operator ID - BSIron, TIBC, % sat. (without ferritin)2019-12-21 14:42:00* Test Item Value Reference Range Interpretation Comments Iron (test code = 2498-4) 19.0 ug/dL 40-160 L TIBC (test code = 2500-7) 170 ug/dL 250-450 L Iron % Saturation (test code = 2502-3) 11 % 20-55 L JEANINE (test code = JEANINE) Car Shakeout Operator ID - BS Lab Interpretation (test code = 58676-7) [facility] % SAT. (WITHOUT FERRITIN)2019-12-21 14:42:00* Test Item Value Reference Range Interpretation Comments IRON (BEAKER) (test code = 547) 19.0 ug/dL 40.0-160.0 L TOTAL IRON BINDING CAPACITY (BEAKER) (test code = 769) 170 ug/dL 250-450 L IRON % SATURATION (2) (BEAKER) (test code = 2590) 11 % 20-5 5 L Car Shakeout Operator ID - BSPOCT-GLUCOSE [id number] 12:35:00* Test Item Value Reference Range Interpretation Comments POC-GLUCOSE METER (BEAKER) (test code = 1538) 77 mg/dL 70-110 : TESTED AT [facility] [address], [address]: Car Shakeout Operator/Crew Leader ID = [id number] for JOHANNY BRAGG WOUND CULTURE + GRAM [id number] 11:58:00* Test Item Value Reference Range Interpretation Comments CULTURE (BEAKER) (test code = 1095) METHICILLIN RESISTANT ST APHYLOCOCCUS AUREUS A 1+ Methicillin resistant Sta phylococcus aureus Clindamycin (test code = 10) R Erythromycin (test code = 4) R Linezolid (test code = 40) S Nitrofurantoin (test code = 23) S Oxacillin (test code = 14) R Rifampin (test code = 43) S Tetracycline (test code = 2) R Trimethoprim + Sulfamethoxazole (test code = 47) S Vancomycin (test code = 13) S GRAM STAIN RESULT (BEAKER) (test code = 1123) 3+ WBCs GRAM STAIN RESULT (BEAKER) (test code = 144278) No organisms seen Urinalysis w/Microscopic + Reflex to [id number] 10:59:00* Test Item Value Reference Range Interpretation Comments Color, UA (test code = 5778-6) Light Yellow Clarity, UA (test code = 5767-9) Clear Specific [place], UA (test code = 5811-5) 1.008 1.001-1.035 pH, UA (test code = 5803-2) 7.0 5.0-8.0 Protein, UA (test code = 63952-8) Negative Negative Glucose, UA (test code = 365) Negative Negative Ketones, UA (test code = 2514-8) Negative Negative Bilirubin, UA (test code = 19296-2) Negative Negative Blood, UA (test code = 24410-0) Negative Negative Nitrite, UA (test code = 5802-4) Negative Negative Leukocytes, UA (test code = 5799-2) Negative Negative Urobilinogen, UA (test code = 02907-4) 0.2 mg/dL 0.2-1 RBC, UA (test code = 46191-4) 1 /HPF WBC, UA (test code = 5821-4) 1 /HPF Squam Epithel, UA (test code = 52273-1) <1 /HPF Specimen Source (test code = 2795) JEANINE (test code = JEANINE) Car Shakeout Operator ID - [auto]Car Shakeout Operator [facility] [id number] 10:59:00* Test Item Value Reference Range Interpretation Comments COLOR (BEAKER) (test code = 470) Light Yellow CLARITY (BEAKER) (test code = 469) Clear SPECIFIC GRAVITY UA (BEAKER) (test code = 468) 1.008 1.001-1 .035 PH UA (BEAKER) (test code = 467) 7.0 5.0-8.0 PROTEIN UA (BEAKER) (test code = 464) Negative Negative GLUCOSE UA (BEAKER) (test code = 365) Negative Negative KETONES UA (BEAKER) (test code = 371) Negative Negative BILIRUBIN UA (BEAKER) (test code = 462) Negative Negative BLOOD UA (BEAKER) (test code = 461) Negative Negative NITRITE UA (BEAKER) (test code = 465) Negative Negative LEUKOCYTE ESTERASE UA (BEAKER) (test code = 466) Negative Negat rogelio UROBILINOGEN UA (BEAKER) (test code = 463) 0.2 mg/dL 0.2-1.0 RBC UA (BEAKER) (test code = 519) 1 /HPF WBC UA (BEAKER) (test code = 520) 1 /HPF SQUAMOUS EPITHELIAL (BEAKER) (test code = 516) < /HPF SOURCE(BEAKER) (test code = 2795) Car Shakeout Operator ID - [auto]Car Shakeout Operator ID - jessiCT-GLUCOSE [id number] 08:27:00* Test Item Value Reference Range Interpretation Comments POC-GLUCOSE METER (BEAKER) (test code = 1538) 84 mg/dL 70-110 : TESTED AT [facility] [address], [address]: Car Shakeout Operator/Crew Leader ID = [id number] for JOHANNY BRAGG BASIC METABOLIC [id number] 06:22:00* Test Item Value Reference Range Interpretation Comments SODIUM (BEAKER) (test code = 381) 133 meq/L 136-145 L POTASSIUM (BEAKER) (test code = 379) 4.2 meq/L 3.5-5.1 CHLORIDE (BEAKER) (test code = 382) 96 meq/L 98-107 L CO2 (BEAKER) (test code = 355) 28 meq/L 22-29 BLOOD UREA NITROGEN (BEAKER) (test code = 354) 36 mg/dL 7-21 H CREATININE (BEAKER) (test code = 358) 1.86 mg/dL 0.57-1.25 H GLUCOSE RANDOM (BEAKER) (test code = 652) 120 mg/dL 70-105 H CALCIUM (BEAKER) (test code = 697) 8.3 mg/dL 8.4-10.2 L EGFR (BEAKER) (test code = 1092) INSUFFICIENT CLINICAL DATA TO CALCULATE ESTIMATED GFR. Car Shakeout Operator ID - [id number] 06:17:00* Test Item Value Reference Range Interpretation Comments PHOSPHORUS (BEAKER) (test code = 604) 3.1 mg/dL 2.3-4.7 Car Shakeout Operator ID - [id number] 06:17:00* Test Item Value Reference Range Interpretation Comments MAGNESIUM (BEAKER) (test code = 627) 2.2 mg/dL 1.6-2.6 Car Shakeout Operator ID - BSCBC W/PLT COUNT & AUTO [id number] 05:23:00* Test Item Value Reference Range Interpretation Comments WHITE BLOOD CELL COUNT (BEAKER) (test code = 775) 6.6 K/ L 3.5- 10.5 RED BLOOD CELL COUNT (BEAKER) (test code = 761) 2.43 M/ L 3.93-5 .22 L HEMOGLOBIN (BEAKER) (test code = 410) 7.2 GM/DL 11.2-15.7 L HEMATOCRIT (BEAKER) (test code = 411) 23.7 % 34.1-44.9 L MEAN CORPUSCULAR VOLUME (BEAKER) (test code = 753) 97.5 fL 79. 4-94.8 H MEAN CORPUSCULAR HEMOGLOBIN (BEAKER) (test code = 751) 29.6 pg 25.6-32.2 MEAN CORPUSCULAR HEMOGLOBIN CONC (BEAKER) (test code = 752) 30.4 GM/DL 32.2-35.5 L RED CELL DISTRIBUTION WIDTH (BEAKER) (test code = 412) 17.0 % 11.7-14.4 H PLATELET COUNT (BEAKER) (test code = 756) 194 K/CU MM 150-450 MEAN PLATELET VOLUME (BEAKER) (test code = 754) 10.0 fL 9.4-12 .3 NUCLEATED RED BLOOD CELLS (BEAKER) (test code = 413) 0 /100 WBC 0 -0 NEUTROPHILS RELATIVE PERCENT (BEAKER) (test code = 429) 49 % LYMPHOCYTES RELATIVE PERCENT (BEAKER) (test code = 430) 31 % MONOCYTES RELATIVE PERCENT (BEAKER) (test code = 431) 12 % EOSINOPHILS RELATIVE PERCENT (BEAKER) (test code = 432) 8 % BASOPHILS RELATIVE PERCENT (BEAKER) (test code = 437) 1 % NEUTROPHILS ABSOLUTE COUNT (BEAKER) (test code = 670) 3.23 K/ L 1.56-6.13 LYMPHOCYTES ABSOLUTE COUNT (BEAKER) (test code = 414) 2.01 K/ L 1.18-3.74 MONOCYTES ABSOLUTE COUNT (BEAKER) (test code = 415) 0.78 K/ L 0. 24-0.36 H EOSINOPHILS ABSOLUTE COUNT (BEAKER) (test code = 416) 0.49 K/ L 0.04-0.36 H BASOPHILS ABSOLUTE COUNT (BEAKER) (test code = 417) 0.03 K/ L 0. 01-0.08 IMMATURE GRANULOCYTES-RELATIVE PERCENT (BEAKER) (test code = 2801) 0 % 0-1 POCT-GLUCOSE [id number] 21:36:00* Test Item Value Reference Range Interpretation Comments POC-GLUCOSE METER (BEAKER) (test code = 1538) 103 mg/dL 70-110 : TESTED AT [facility] [address], [address]: Car Shakeout Operator/Crew Leader ID = [id number] for LIS GONZALES POCT-GLUCOSE [id number] 17:54:00* Test Item Value Reference Range Interpretation Comments POC-GLUCOSE METER (BEAKER) (test code = 1538) 126 mg/dL 70-110 H : TESTED AT [facility] [address], [address]: Car Shakeout Operator/Crew Leader ID = [id number] for JOHANNY BRAGG Blood Culture Panel([employer])2019-12-20 16:52:00* Test Item Value Reference Range Interpretation Comments LISTERIA MONOCYTOGENES (test code = 38557-3) Not detected Not detec patel STAPHYLOCOCCUS (test code = 12326-8) Detected Not detected A STAPHYLOCOCCUS AUREUS (test code = 02535-0) Detected Not detect ed A Methicillin- resistant S. aureus (MRSA)First-line therapy: VancomycinID CONSULTATION REQUIRED. Staphylococcus aureus DETECTED MecA DETECTEDReference Range: Not Detected Streptococcus (test code = 71291-0) Not detected Not detected STREPTOCOCCUS AGALACTIAE (GROUP B) (test code = 00000-8) Not detected Not detected STREPTOCOCCUS PNEUMONIAE (test code = 83577-6) Not detected Not det ected Streptococcus pyogenes (Group A) (test code = 58386-6) Not d etected Not detected ACINETOBACTER BAUMANNII (test code = 27640-6) Not detected Not dete cted HAEMOPHILUS INFLUENZAE (test code = 01121-7) Not detected Not detec patel NEISSERIA MENINGITIDIS (test code = 53639-9) Not detected Not detec patel ENTEROBACTERIACEAE (test code = 72968-3) Not detected Not detected ENTEROBACTER CLOACOE COMPLEX (test code = 83137-3) Not detected Not detected KLEBSIELLA OXYTOCA (test code = 44798-9) Not detected Not detected KLEBSIELLA PNEUMONIAE (test code = 76038-7) Not detected Not detect ed PROTEUS (test code = 12939-7) Not detected Not detected SERRATIA MARCESCENS (test code = 96391-7) Not detected Not detected DEANNA ALBICANS (test code = 29684-1) Not detected Not detected DEANNA GLABRATA (test code = 92820-5) Not detected Not detected DEANNA KRUSEI (test code = 18802-0) Not detected Not detected DEANNA PARAPSILOSIS (test code = 04020-9) Not detected Not detecte d DEANNA TROPICALIS (test code = 95371-7) Not detected Not detected ESCHERICHIA COLI (test code = 74591-8) Not detected Not detected METHICILLIN-RESISTANCE GENE (test code = 51136-8) Detected Not detected A VANCOMYCIN-RESISTANCE GENE (test code = 62175-3) CARBAPENEM-RESISTANCE GENE (test code = 11135-2) ENTEROCOCCUS (test code = 94958-4) Not detected Not detected PSEUDOMONAS AERUGINOSA (test code = 67618-9) Not detected Not detec patel JEANINE (test code = JEANINE) Other bacteria and resistanc e markers not targeted by this PCR panel cannot be excluded; therefore clinical correlation and follow up of serology, culture results, and other molecular studies is required. The results are not intended to be used as the sole means for clinical diagnosis or patient management decisions. This sample was tested at the [facility] Molecular Diagnostics Laboratory using the Novel [employer] Blood Culture ID Panel. It is FDA cleared and has been verified and approved by the [facility] Molecular Diagnostics Laboratory for clinical use. This laboratory is CLIA-certified and [employer] ([employer])-accredited to perform high complexity testing. Lab Interpretation (test code = 17096-9) Abnormal [facility] ID[facility]IF[facility] [id number] 16:52:00* Test Item Value Reference Range Interpretation Comments LISTERIA MONOCYTOGENES (test code = 2246848) Not detected Not detec patel STAPHYLOCOCCUS (test code = 5247702) Detected Not detected A STAPHYLOCOCCUS AUREUS (test code = 7758980) Detected Not detect ed A Methicillin- resistant S. aureus (MRSA)First-line therapy: VancomycinID CONSULTATION REQUIRED. Staphylococcus aureus DETECTED MecA DETECTEDReference Range: Not Detected STREPTOCOCCUS (test code = 7156770) Not detected Not detected STREPTOCOCCUS AGALACTIAE (GROUP B) (test code = 9738484) Not detected Not detected STREPTOCOCCUS PNEUMONIAE (test code = 9891829) Not detected Not det ected STREPTOCOCCUS PYOGENES (GROUP A) (test code = 5825798) Not d etected Not detected ACINETOBACTER BAUMANNII (test code = 1892748) Not detected Not dete cted HAEMOPHILUS INFLUENZAE (test code = 8656796) Not detected Not detec patel NEISSERIA MENINGITIDIS (test code = 6939099) Not detected Not detec patel ENTEROBACTERIACEAE (test code = 7190395) Not detected Not detected ENTEROBACTER CLOACOE COMPLEX (test code = 4362738) Not detected Not detected KLEBSIELLA OXYTOCA (test code = 4143663) Not detected Not detected KLEBSIELLA PNEUMONIAE (test code = 1650) Not detected Not detected PROTEUS (test code = 8981570) Not detected Not detected SERRATIA MARCESCENS (test code = 9773715) Not detected Not detected DEANNA ALBICANS (test code = 9173434) Not detected Not detected DEANNA GLABRATA (test code = 7808414) Not detected Not detected DEANNA KRUSEI (test code = 1746860) Not detected Not detected DEANNA PARAPSILOSIS (test code = 4408939) Not detected Not detecte d DEANNA TROPICALIS (test code = 8900467) Not detected Not detected ESCHERICHIA COLI (test code = 7732898) Not detected Not detected METHICILLIN-RESISTANCE GENE (test code = 6369120) Detected Not detected A VANCOMYCIN-RESISTANCE GENE (test code = 3245819) CARBAPENEM-RESISTANCE GENE (test code = 2413302) ENTEROCOCCUS-BEAKER (test code = 7302441) Not detected Not detected PSEUDOMONAS AERUGINOSA-BEAKER (test code = 1675908) Not detected No t detected Other bacteria and resistance markers not targeted by this PCR panel cannot be e xcluded; therefore clinical correlation and follow up of serology, culture resul ts, and other molecular studies is required. The results are not intended to be used as the sole means for clinical diagnosis or patient management decisions. T his sample was tested at the [facility] Molecular Diagnostics Laboratory using the [employer] Blood Culture ID Panel. It is FDA cleared and has been verified and approved by the [facility] Molecular Diagnostics Laboratory for clinical use. Thi s laboratory is CLIA-certified and [employer] (CAP)-accred ited to perform high complexity testing.POCT-GLUCOSE [id number] 12:36:00* Test Item Value Reference Range Interpretation Comments POC-GLUCOSE METER (BEAKER) (test code = 1538) 127 mg/dL 70-110 H : TESTED AT [facility] [address], [address]: Car Shakeout Operator/Crew Leader ID = [id number] for Anabel Echols POCT-GLUCOSE [id number] 08:40:00* Test Item Value Reference Range Interpretation Comments POC-GLUCOSE METER (BEAKER) (test code = 1538) 83 mg/dL 70-110 : TESTED AT [facility] [address], [address]: Car Shakeout Operator/Crew Leader ID = [id number] for Dupas, Anabel BASIC METABOLIC [id number] 06:29:00* Test Item Value Reference Range Interpretation Comments SODIUM (BEAKER) (test code = 381) 134 meq/L 136-145 L POTASSIUM (BEAKER) (test code = 379) 4.4 meq/L 3.5-5.1 CHLORIDE (BEAKER) (test code = 382) 96 meq/L 98-107 L CO2 (BEAKER) (test code = 355) 30 meq/L 22-29 H BLOOD UREA NITROGEN (BEAKER) (test code = 354) 36 mg/dL 7-21 H CREATININE (BEAKER) (test code = 358) 2.11 mg/dL 0.57-1.25 H GLUCOSE RANDOM (BEAKER) (test code = 652) 103 mg/dL 70-105 CALCIUM (BEAKER) (test code = 697) 8.7 mg/dL 8.4-10.2 EGFR (BEAKER) (test code = 1092) INSUFFICIENT CLINICAL DATA TO CALCULATE ESTIMATED GFR. Car Shakeout Operator ID - PIJUDY LC-Reactive [id number] 06:22:00* Test Item Value Reference Range Interpretation Comments CRP (test code = 676) 14.80 mg/dL 0-0.5 H JEANINE (test code = JEANINE) Car Shakeout Operator ID - PIAYA L Lab Interpretation (test code = 95338-6) [facility] 06:22:00* Test Item Value Reference Range Interpretation Comments PHOSPHORUS (BEAKER) (test code = 604) 3.8 mg/dL 2.3-4.7 Car Shakeout Operator ID - PIAYA [id number] 06:22:00* Test Item Value Reference Range Interpretation Comments MAGNESIUM (BEAKER) (test code = 627) 2.3 mg/dL 1.6-2.6 Car Shakeout Operator ID - PIAYA LC-REACTIVE [id number] 06:22:00* Test Item Value Reference Range Interpretation Comments C-REACTIVE PROTEIN (BEAKER) (test code = 676) 14.80 mg/dL 0.00-0.5 0 H Car Shakeout Operator ID - PIAYA LTSH/Free T4 If [id number] 06:20:00* Test Item Value Reference Range Interpretation Comments TSH (test code = 08740-7) 0.807 0.350- 4.940 uIU/mL JEANINE (test code = JEANINE) Car Shakeout Operator ID - LULU L Lab Interpretation (test code = 40535-6) Normal [facility] T4 IF [id number] 06:20:00* Test Item Value Reference Range Interpretation Comments THYROID STIMULATING HORMONE (BEAKER) (test code = 772) 0.807 uIU /mL 0.350-4.940 Car Shakeout Operator ID - LULU LCBC W/PLT COUNT & AUTO [id number] 05:41:00* Test Item Value Reference Range Interpretation Comments WHITE BLOOD CELL COUNT (BEAKER) (test code = 775) 7.1 K/ L 3.5- 10.5 RED BLOOD CELL COUNT (BEAKER) (test code = 761) 2.52 M/ L 3.93-5 .22 L HEMOGLOBIN (BEAKER) (test code = 410) 7.6 GM/DL 11.2-15.7 L HEMATOCRIT (BEAKER) (test code = 411) 24.8 % 34.1-44.9 L MEAN CORPUSCULAR VOLUME (BEAKER) (test code = 753) 98.4 fL 79. 4-94.8 H MEAN CORPUSCULAR HEMOGLOBIN (BEAKER) (test code = 751) 30.2 pg 25.6-32.2 MEAN CORPUSCULAR HEMOGLOBIN CONC (BEAKER) (test code = 752) 30.6 GM/DL 32.2-35.5 L RED CELL DISTRIBUTION WIDTH (BEAKER) (test code = 412) 17.3 % 11.7-14.4 H PLATELET COUNT (BEAKER) (test code = 756) 192 K/CU MM 150-450 MEAN PLATELET VOLUME (BEAKER) (test code = 754) 10.1 fL 9.4-12 .3 NUCLEATED RED BLOOD CELLS (BEAKER) (test code = 413) 0 /100 WBC 0 -0 NEUTROPHILS RELATIVE PERCENT (BEAKER) (test code = 429) 61 % LYMPHOCYTES RELATIVE PERCENT (BEAKER) (test code = 430) 21 % MONOCYTES RELATIVE PERCENT (BEAKER) (test code = 431) 12 % EOSINOPHILS RELATIVE PERCENT (BEAKER) (test code = 432) 6 % BASOPHILS RELATIVE PERCENT (BEAKER) (test code = 437) 0 % NEUTROPHILS ABSOLUTE COUNT (BEAKER) (test code = 670) 4.30 K/ L 1.56-6.13 LYMPHOCYTES ABSOLUTE COUNT (BEAKER) (test code = 414) 1.46 K/ L 1.18-3.74 MONOCYTES ABSOLUTE COUNT (BEAKER) (test code = 415) 0.83 K/ L 0. 24-0.36 H EOSINOPHILS ABSOLUTE COUNT (BEAKER) (test code = 416) 0.41 K/ L 0.04-0.36 H BASOPHILS ABSOLUTE COUNT (BEAKER) (test code = 417) 0.03 K/ L 0. 01-0.08 IMMATURE GRANULOCYTES-RELATIVE PERCENT (BEAKER) (test code = 2801) 0 % 0-1 POCT-GLUCOSE [id number] 04:00:00* Test Item Value Reference Range Interpretation Comments POC-GLUCOSE METER (BEAKER) (test code = 1538) 121 mg/dL 70-110 H : TESTED AT [address], [address]: Car Shakeout Operator/Crew Leader ID = [id number] for MAIN DICK POCT-GLUCOSE [id number] 17:04:00* Test Item Value Reference Range Interpretation Comments POC-GLUCOSE METER (BEAKER) (test code = 1538) 113 mg/dL 70-110 H : TESTED AT [address], [address]: Car Shakeout Operator/Crew Leader ID = [id number] for ORPHEY, GEOVANNI POCT-GLUCOSE [id number] 12:14:00* Test Item Value Reference Range Interpretation Comments POC-GLUCOSE METER (BEAKER) (test code = 1538) 128 mg/dL 70-110 H : TESTED AT [address], [address]: Car Shakeout Operator/Crew Leader ID = [id number] for ORPHEY, GEOVANNI POCT-GLUCOSE [id number] 08:11:00* Test Item Value Reference Range Interpretation Comments POC-GLUCOSE METER (BEAKER) (test code = 1538) 79 mg/dL 70-110 : TESTED AT [address], [address]: Car Shakeout Operator/Crew Leader ID = [id number] for Catarino Stoll BASIC METABOLIC [id number] 06:14:00* Test Item Value Reference Range Interpretation Comments SODIUM (BEAKER) (test code = 381) 132 meq/L 136-145 L POTASSIUM (BEAKER) (test code = 379) 5.1 meq/L 3.5-5.1 CHLORIDE (BEAKER) (test code = 382) 93 meq/L 98-107 L CO2 (BEAKER) (test code = 355) 31 meq/L 22-29 H BLOOD UREA NITROGEN (BEAKER) (test code = 354) 31 mg/dL 7-21 H CREATININE (BEAKER) (test code = 358) 1.99 mg/dL 0.57-1.25 H GLUCOSE RANDOM (BEAKER) (test code = 652) 105 mg/dL 70-105 CALCIUM (BEAKER) (test code = 697) 8.6 mg/dL 8.4-10.2 EGFR (BEAKER) (test code = 1092) INSUFFICIENT CLINICAL DATA TO CALCULATE ESTIMATED GFR. Car Shakeout Operator ID - [id number] 06:06:00* Test Item Value Reference Range Interpretation Comments PHOSPHORUS (BEAKER) (test code = 604) 3.2 mg/dL 2.3-4.7 Car Shakeout Operator ID - LULU [id number] 06:06:00* Test Item Value Reference Range Interpretation Comments MAGNESIUM (BEAKER) (test code = 627) 2.2 mg/dL 1.6-2.6 Car Shakeout Operator ID - LUZMARIAJUDY LCBC W/PLT COUNT & AUTO [id number] 05:37:00* Test Item Value Reference Range Interpretation Comments WHITE BLOOD CELL COUNT (BEAKER) (test code = 775) 10.9 K/ L 3.5- 10.5 H RED BLOOD CELL COUNT (BEAKER) (test code = 761) 2.55 M/ L 3.93-5 .22 L HEMOGLOBIN (BEAKER) (test code = 410) 7.7 GM/DL 11.2-15.7 L HEMATOCRIT (BEAKER) (test code = 411) 24.7 % 34.1-44.9 L MEAN CORPUSCULAR VOLUME (BEAKER) (test code = 753) 96.9 fL 79. 4-94.8 H MEAN CORPUSCULAR HEMOGLOBIN (BEAKER) (test code = 751) 30.2 pg 25.6-32.2 MEAN CORPUSCULAR HEMOGLOBIN CONC (BEAKER) (test code = 752) 31.2 GM/DL 32.2-35.5 L RED CELL DISTRIBUTION WIDTH (BEAKER) (test code = 412) 17.7 % 11.7-14.4 H PLATELET COUNT (BEAKER) (test code = 756) 204 K/CU MM 150-450 MEAN PLATELET VOLUME (BEAKER) (test code = 754) 10.1 fL 9.4-12 .3 NUCLEATED RED BLOOD CELLS (BEAKER) (test code = 413) 0 /100 WBC 0 -0 NEUTROPHILS RELATIVE PERCENT (BEAKER) (test code = 429) 63 % LYMPHOCYTES RELATIVE PERCENT (BEAKER) (test code = 430) 21 % MONOCYTES RELATIVE PERCENT (BEAKER) (test code = 431) 12 % EOSINOPHILS RELATIVE PERCENT (BEAKER) (test code = 432) 4 % BASOPHILS RELATIVE PERCENT (BEAKER) (test code = 437) 0 % NEUTROPHILS ABSOLUTE COUNT (BEAKER) (test code = 670) 6.89 K/ L 1.56-6.13 H LYMPHOCYTES ABSOLUTE COUNT (BEAKER) (test code = 414) 2.24 K/ L 1.18-3.74 MONOCYTES ABSOLUTE COUNT (BEAKER) (test code = 415) 1.25 K/ L 0. 24-0.36 H EOSINOPHILS ABSOLUTE COUNT (BEAKER) (test code = 416) 0.41 K/ L 0.04-0.36 H BASOPHILS ABSOLUTE COUNT (BEAKER) (test code = 417) 0.04 K/ L 0. 01-0.08 IMMATURE GRANULOCYTES-RELATIVE PERCENT (BEAKER) (test code = 2801) 1 % 0-1 POCT-GLUCOSE [id number] 21:14:00* Test Item Value Reference Range Interpretation Comments POC-GLUCOSE METER (BEAKER) (test code = 1538) 125 mg/dL 70-110 H : TESTED AT [facility] [address], [address]: Car Shakeout Operator/Crew Leader ID = [id number] for Mine Trevino POCT-GLUCOSE [id number] 17:26:00* Test Item Value Reference Range Interpretation Comments POC-GLUCOSE METER (BEAKER) (test code = 1538) 101 mg/dL 70-110 : TESTED AT [facility] [address], [address]: Car Shakeout Operator/Crew Leader ID = [id number] for GEOVANNI HAYDEN POCT-GLUCOSE [id number] 13:01:00* Test Item Value Reference Range Interpretation Comments POC-GLUCOSE METER (BEAKER) (test code = 1538) 108 mg/dL 70-110 : TESTED AT [facility] [address], [address]: Car Shakeout Operator/Crew Leader ID = [id number] for GEOVANNI HAYDEN Hemoglobin [id number] 09:10:00* Test Item Value Reference Range Interpretation Comments Hemoglobin A1C (test code = 4548-4) 5.3 % 4.3-6.1 Lab Interpretation (test code = 46156-2) [id number] 09:10:00* Test Item Value Reference Range Interpretation Comments HEMOGLOBIN A1C (BEAKER) (test code = 368) 5.3 % 4.3-6.1 POCT-GLUCOSE [id number] 08:34:00* Test Item Value Reference Range Interpretation Comments POC-GLUCOSE METER (BEAKER) (test code = 1538) 97 mg/dL 70-110 : TESTED AT [place] [id number] [facility], [address]: Car Shakeout Operator/Crew Leader ID = [id number] for GEOVANNI HAYDEN BASIC METABOLIC [id number] 06:22:00* Test Item Value Reference Range Interpretation Comments SODIUM (BEAKER) (test code = 381) 135 meq/L 136-145 L POTASSIUM (BEAKER) (test code = 379) 4.7 meq/L 3.5-5.1 CHLORIDE (BEAKER) (test code = 382) 96 meq/L 98-107 L CO2 (BEAKER) (test code = 355) 33 meq/L 22-29 H BLOOD UREA NITROGEN (BEAKER) (test code = 354) 31 mg/dL 7-21 H CREATININE (BEAKER) (test code = 358) 2.05 mg/dL 0.57-1.25 H GLUCOSE RANDOM (BEAKER) (test code = 652) 98 mg/dL 70-105 CALCIUM (BEAKER) (test code = 697) 8.6 mg/dL 8.4-10.2 EGFR (BEAKER) (test code = 1092) INSUFFICIENT CLINICAL DATA TO CALCULATE ESTIMATED GFR. Car Shakeout Operator ID - PIAYA [id number] 06:04:00* Test Item Value Reference Range Interpretation Comments PHOSPHORUS (BEAKER) (test code = 604) 3.5 mg/dL 2.3-4.7 Car Shakeout Operator ID - LULU [id number] 06:04:00* Test Item Value Reference Range Interpretation Comments MAGNESIUM (BEAKER) (test code = 627) 1.9 mg/dL 1.6-2.6 Car Shakeout Operator ID - LULU LCBC W/PLT COUNT & AUTO [id number] 05:21:00* Test Item Value Reference Range Interpretation Comments WHITE BLOOD CELL COUNT (BEAKER) (test code = 775) 10.3 K/ L 3.5- 10.5 RED BLOOD CELL COUNT (BEAKER) (test code = 761) 2.62 M/ L 3.93-5 .22 L HEMOGLOBIN (BEAKER) (test code = 410) 7.7 GM/DL 11.2-15.7 L HEMATOCRIT (BEAKER) (test code = 411) 25.6 % 34.1-44.9 L MEAN CORPUSCULAR VOLUME (BEAKER) (test code = 753) 97.7 fL 79. 4-94.8 H MEAN CORPUSCULAR HEMOGLOBIN (BEAKER) (test code = 751) 29.4 pg 25.6-32.2 MEAN CORPUSCULAR HEMOGLOBIN CONC (BEAKER) (test code = 752) 30.1 GM/DL 32.2-35.5 L RED CELL DISTRIBUTION WIDTH (BEAKER) (test code = 412) 17.9 % 11.7-14.4 H PLATELET COUNT (BEAKER) (test code = 756) 216 K/CU MM 150-450 MEAN PLATELET VOLUME (BEAKER) (test code = 754) 10.1 fL 9.4-12 .3 NUCLEATED RED BLOOD CELLS (BEAKER) (test code = 413) 0 /100 WBC 0 -0 NEUTROPHILS RELATIVE PERCENT (BEAKER) (test code = 429) 57 % LYMPHOCYTES RELATIVE PERCENT (BEAKER) (test code = 430) 27 % MONOCYTES RELATIVE PERCENT (BEAKER) (test code = 431) 10 % EOSINOPHILS RELATIVE PERCENT (BEAKER) (test code = 432) 5 % BASOPHILS RELATIVE PERCENT (BEAKER) (test code = 437) 1 % NEUTROPHILS ABSOLUTE COUNT (BEAKER) (test code = 670) 5.87 K/ L 1.56-6.13 LYMPHOCYTES ABSOLUTE COUNT (BEAKER) (test code = 414) 2.78 K/ L 1.18-3.74 MONOCYTES ABSOLUTE COUNT (BEAKER) (test code = 415) 1.05 K/ L 0. 24-0.36 H EOSINOPHILS ABSOLUTE COUNT (BEAKER) (test code = 416) 0.52 K/ L 0.04-0.36 H BASOPHILS ABSOLUTE COUNT (BEAKER) (test code = 417) 0.05 K/ L 0. 01-0.08 IMMATURE GRANULOCYTES-RELATIVE PERCENT (BEAKER) (test code = 2801) 0 % 0-1 POCT-GLUCOSE [id number] 22:11:00* Test Item Value Reference Range Interpretation Comments POC-GLUCOSE METER (BEAKER) (test code = 1538) 93 mg/dL 70-110 : TESTED AT [facility] [address], [address]: Car Shakeout Operator/Crew Leader ID = [id number] for MITESH TROTTER POCT-GLUCOSE [id number] 17:40:00* Test Item Value Reference Range Interpretation Comments POC-GLUCOSE METER (BEAKER) (test code = 1538) 86 mg/dL 70-110 : TESTED AT [place] [id number] [facility], [address]: Car Shakeout Operator/Crew Leader ID = [id number] for MAHSAJOHANNY CT, CHEST, WITHOUT [id number] 16:00:00Addendum BeginsREPORT STATUS:A There is mild irregularity and sclerosis of the right anterior eighth rib. This is likely due to an old, healed fracture. Signed: Rosalinda Snowden MDReport Verified Date/Time: 12/17/2019 16:00:27 Reading Location: [place] [address] CT Body Reading RoomAddendum EndsFINAL REPORT TECHNIQUE: CT scan of the chest WITHOUT intravenous contrast. Dose modulation, iterative reconstruction, and/or weight-based adjustment of the mA/kV was utilized to reduce the radiation dose to as low as reasonably achievable. INDICATION: sob. COMPARISON: None. FINDINGS: ABSENCE OF INTRAVENOU S CONTRAST DECREASES SENSITIVITY FOR DETECTION OF FOCAL LESIONS AND VASCULAR PAT HOLOGY. LINES/TUBES: None. LUNGS AND AIRWAYS: A left upper lobe calcified granul greg measures 0.4 cm. Mild bibasilar subsegmental atelectasis. A right middle lob e pulmonary nodule measures 0.4 cm on axial image 35 there is minimal, scattered air trapping. Pulmonary venous congestion. PLEURA: Small, loculated effusion al guille the left major fissure. HEART AND MEDIASTINUM: The visualized thyroid gland is normal. No significant mediastinal, hilar, or axillary lymphadenopathy. The l eft atrium is enlarged. Mild calcification of the aortic arch and descending tho racic aorta. Marked calcification of the coronary arteries. Prior CABG The fluid and the heart is low-density myocardium, consistent with anemia. SOFT TISSUES A ND BONES: A device overlies the left lateral chest. Prior median sternotomy. The sternotomy is unhealed. Moderate degenerative disc changes of the visualized sp ine. UPPER ABDOMEN: Calcification of the small vessels of the abdomen. Moderate calcification of the abdominal aorta. IMPRESSION: 1.Pulmonary venous congestion . 2.There is a small, loculated effusion along the left major fissure. 3.A right middle lobe pulmonary nodule measures 0.4 cm. If the patient is at increased ri sk for lung cancer, an optional follow-up chest CT can be obtained in 12 months. Otherwise, no CT follow-up is necessary. Signed: Rosalinda Snowden MDReport Verified D ate/Time: 12/16/2019 10:18:14 Reading Location: [place] [address] CT Body Reading Ro om , [place], [id number] 15:59:00Reason for exam:->right sided chest painFINAL REPORT TECHNIQUE: Minimum three views of the right ribs with PA chest. INDICATION: right sided chest pain. COMPARISON: Chest CT from 12/16/2019. FINDINGS:A left chest defibrillator has a lead over the sternum. Prior median sternotomy. Prior CABG. There is a left retrocardiac opacity which is most likely accommodation of the atelectasis and loculated effusion seen on yest erday's chest CT. There is a questionable irregularity of the right anterior eig hth rib. On the chest radiograph from yesterday, this appeared more likely to be a chronic fracture given some underlying sclerosis. Leftward convex curvature o f the lumbar spine. Moderate degenerative disc changes of the visualized spine. IMPRESSION: The mild irregularity of the right anterior eighth rib has some scle rosis on the prior chest CT and is favored to be an old, healed rib fracture. Pl ease correlate for point tenderness in this location to exclude an acute fractur e. The left retrocardiac opacity is likely a combination of atelectasis and the previously seen loculated left major fissure effusion. Signed: Rosalinda Snowden MDRjefeo rt Verified Date/Time: 12/17/2019 15:59:38 Reading Location: [facility] B[address] [place] Reading Room ribs with pa chest 3 views min [id number] 15:59:00Interface, External Ris In - 12/17/2019 4:01 PM CDTFINAL REPORT TECHNIQUE: Minimum three views of the right ribs with PA chest. INDICATION: right sided chest pain. COMPARISON: Chest CT from 12/16/2019. FINDINGS:A left chest defibrillator has a lead over the sternum. Prior median sternotomy. Prior CABG. There is a left retrocardiac opacity which is most likely accommodation of the atelectasis and loculated effusion seen on yesterday's chest CT. There is a questionable irregularity of the right anterior eighth rib. On the chest radiog raph from yesterday, this appeared more likely to be a chronic fracture given so me underlying sclerosis. Leftward convex curvature of the lumbar spine. Moderate degenerative disc changes of the visualized spine. IMPRESSION: The mild irregul arity of the right anterior eighth rib has some sclerosis on the prior chest CT and is favored to be an old, healed rib fracture. Please correlate for point ten derness in this location to exclude an acute fracture. The left retrocardiac opa city is likely a combination of atelectasis and the previously seen loculated le ft major fissure effusion. Signed: Rosalinda Snowden MDRjefeort Verified Date/Time: 10/2019 15:59:38 Reading Location: [facility] B1 C013Y CT Body Reading Room Electro nically signed by: ROSALINDA SNOWDEN MD on 12/17/2019 03:59 PM [facility] [id number] 12:37:00* Test Item Value Reference Range Interpretation Comments POC-GLUCOSE METER (STEWART) (test code = 1538) 91 mg/dL 70-110 : TESTED AT [facility] [address] [place], [address]: Car Shakeout Operator/Crew Leader ID = [id number] for JOHANNY BRAGG SARS-COV2/RT-PCR ([facility])2019-12-17 09:26:00* Test Item Value Reference Range Interpretation Comments SARS-COV2/RT-PCR (test code = 7109635) Not Detected Not Detected, N egative SARS-COV-2 PERFORMING LAB (test code = 8939368) [facility] Negative results do not preclude SARS-CoV-2 infection and should not be used as the sole basis for patient management decisions. Negative results must be combin ed with clinical observations, patient history, and epidemiological information. A false negative result may occur if a specimen is improperly collected, transp orted or handled.The limit of detection for this assay is 250 copies/mL.This [facility] CoV-2 test is a rapid, real-time RT-PCR test intended for the qualitative dete ction of nucleic acid from SARS-CoV-2 in a nasopharyngeal swab specimen collecte d from individuals suspected of COVID-19 by their healthcare provider.This test has not been Food and Drug Administration (FDA) cleared or approved and has been authorized by FDA under an Emergency Use Authorization (EUA). This EUA will be effective until the declaration that circumstances exist justifying the authoriz ation of the emergency use of in vitro diagnostic tests for detection and/or naty gnosis of COVID-19 is terminated under Section 564(b)(2) of the Act or the EUA i s revoked under Section 564(g) of the Act.Fact Sheet for Healthcare Providers:ht tps://www.[employer]/Documents/Xpert%20Xpress%20SARS%20CoV-2/Fact%20Sheets/790- 3802%94LIMG-UXZ-0%20HEALTHCARE%20PROVIDERS%20FACT%20SHEET.pdfFact Sheet for Heal thcare Patients:https://www.[employer]/Documents/Xpert%20Xpress%20SARS%20CoV-2/ Fact%20Sheets/3023801%08CWRU-LON-1%20PATIENT%20FACT%20SHEET.pdfPerforming Labor atory:[facility] [place] [address].[place], [place] [address]FWHPG METABOLIC [id number] 09:05:00* Test Item Value Reference Range Interpretation Comments SODIUM (BEAKER) (test code = 381) 136 meq/L 136-145 POTASSIUM (BEAKER) (test code = 379) 4.6 meq/L 3.5-5.1 CHLORIDE (BEAKER) (test code = 382) 98 meq/L 98-107 CO2 (BEAKER) (test code = 355) 30 meq/L 22-29 H BLOOD UREA NITROGEN (BEAKER) (test code = 354) 28 mg/dL 7-21 H CREATININE (BEAKER) (test code = 358) 1.76 mg/dL 0.57-1.25 H GLUCOSE RANDOM (BEAKER) (test code = 652) 93 mg/dL 70-105 CALCIUM (BEAKER) (test code = 697) 8.5 mg/dL 8.4-10.2 EGFR (BEAKER) (test code = 1092) INSUFFICIENT CLINICAL DATA TO CALCULATE ESTIMATED GFR. Car Shakeout Operator ID - ANNMARIE [id number] 09:03:00* Test Item Value Reference Range Interpretation Comments PHOSPHORUS (BEAKER) (test code = 604) 3.4 mg/dL 2.3-4.7 Car Shakeout Operator ID - ANNMARIE [id number] 09:03:00* Test Item Value Reference Range Interpretation Comments MAGNESIUM (BEAKER) (test code = 627) 2.0 mg/dL 1.6-2.6 Car Shakeout Operator ID - ANNMARIE CPOCT-GLUCOSE [id number] 08:07:00* Test Item Value Reference Range Interpretation Comments POC-GLUCOSE METER (BEAKER) (test code = 1538) 94 mg/dL 70-110 : TESTED AT [facility] [address], [address]: Car Shakeout Operator/Crew Leader ID = [id number] for JOHANNY BRAGG CBC W/PLT COUNT & AUTO [id number] 08:04:00* Test Item Value Reference Range Interpretation Comments WHITE BLOOD CELL COUNT (BEAKER) (test code = 775) 8.8 K/ L 3.5- 10.5 RED BLOOD CELL COUNT (BEAKER) (test code = 761) 2.53 M/ L 3.93-5 .22 L HEMOGLOBIN (BEAKER) (test code = 410) 7.7 GM/DL 11.2-15.7 L HEMATOCRIT (BEAKER) (test code = 411) 24.7 % 34.1-44.9 L MEAN CORPUSCULAR VOLUME (BEAKER) (test code = 753) 97.6 fL 79. 4-94.8 H MEAN CORPUSCULAR HEMOGLOBIN (BEAKER) (test code = 751) 30.4 pg 25.6-32.2 MEAN CORPUSCULAR HEMOGLOBIN CONC (BEAKER) (test code = 752) 31.2 GM/DL 32.2-35.5 L RED CELL DISTRIBUTION WIDTH (BEAKER) (test code = 412) 18.1 % 11.7-14.4 H PLATELET COUNT (BEAKER) (test code = 756) 202 K/CU MM 150-450 MEAN PLATELET VOLUME (BEAKER) (test code = 754) 10.1 fL 9.4-12 .3 NUCLEATED RED BLOOD CELLS (BEAKER) (test code = 413) 0 /100 WBC 0 -0 NEUTROPHILS RELATIVE PERCENT (BEAKER) (test code = 429) 53 % LYMPHOCYTES RELATIVE PERCENT (BEAKER) (test code = 430) 31 % MONOCYTES RELATIVE PERCENT (BEAKER) (test code = 431) 9 % EOSINOPHILS RELATIVE PERCENT (BEAKER) (test code = 432) 6 % BASOPHILS RELATIVE PERCENT (BEAKER) (test code = 437) 1 % NEUTROPHILS ABSOLUTE COUNT (BEAKER) (test code = 670) 4.71 K/ L 1.56-6.13 LYMPHOCYTES ABSOLUTE COUNT (BEAKER) (test code = 414) 2.77 K/ L 1.18-3.74 MONOCYTES ABSOLUTE COUNT (BEAKER) (test code = 415) 0.80 K/ L 0. 24-0.36 H EOSINOPHILS ABSOLUTE COUNT (BEAKER) (test code = 416) 0.49 K/ L 0.04-0.36 H BASOPHILS ABSOLUTE COUNT (BEAKER) (test code = 417) 0.04 K/ L 0. 01-0.08 IMMATURE GRANULOCYTES-RELATIVE PERCENT (BEAKER) (test code = 2801) 0 % 0-1 POCT-GLUCOSE [id number] 22:01:00* Test Item Value Reference Range Interpretation Comments POC-GLUCOSE METER (BEAKER) (test code = 1538) 119 mg/dL 70-110 H : TESTED AT [facility] [address], [address]: Car Shakeout Operator/Crew Leader ID = [id number] for MITESH TROTTER PUL PERF IMAGING, [id number] 18:00:00FINAL REPORT PROCEDURE: LUNG SCAN - perfusion only CPT CODE: 21033 INDICATION: right chest pain PROTOCOL: 2.1 mCi of Tc-99m MAA was injected intravenously, and static perfusion images were obtained in multiple projections. Ventilation imaging was not performed due to COVID precautions. FINDINGS: Tracer distribution is nonsegmentally, moderately irregular in both lungs. There is prominence of the left oblique fissure. IMPRESSION: 1. Low probability of acute pulmonary embolization. 2. Bilateral parenchymal abnormality and additional left pleural abnormality. Signed: Timothy Bartlett Verified Date/Time: 12/16/2019 18:00:45 lung perfusion scan 2019-12-16 18:00:00Interface, External Ris In - 12/16/2019 6:02 PM CDTFINAL REPORT PROCEDURE: LUNG SCAN - perfusion only CPT CODE: 99811 INDICATION: right chest pain PROTOCOL: 2.1 mCi of Tc-99m MAA was injected intravenously, and static perfusion images were obtained in multiple projections. Ventilation imaging was not performed due to COVID precautions. FINDINGS: Tracer distribution is nonsegmentally, moderately irregular in both lungs. There is prominence of the left oblique fissure. IMPRESSION: 1. Low probability of acute pulmonary embolization. 2. Bilateral parenchymal abnormality and additional left pleural abnormality. 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 Septal motion is abnormal, likely related to prior cardiac surge ry . Estimated LVEF by qualitative assessment is normal (55-60%) . Degree of naty stolic dysfunction (LAP assessment) is inconclusive due to arrhythmia . Moderate aortic stenosis. AoV area at rest by continuity equation is in the range of 1.1 cm2. AoV resting Mean [id number].. Sgsm-li-xdtnifod tricuspid regurgitation . Estimated peak systolic PA pressure is 45-50 mmHg (mild pulmonary hypertension ) . Previous Study In comparison with the prior exam 02-28-15 the following simons ges are noted: is new, . Signature Electronically signed by Alphonso Velazquez MD([facility] physician) on 12/16/2019 02:47 PM Findings Rhythm/BP Irregular rhythm duri ng the exam. Left Ventricle The left ventricle is chamber size (by PSLA X dimension) is moderately enlarged (female - LVIDd 5.7-6.1cm) . Normal LV wall thickness. Septal motion is abnormal, likely related to prior cardiac surgery . Global LV systolic fun ction normal . Estimated LVEF by qualitative assessment i s normal (55-60%) . Degree of pena tolic dysfunction (LAP assessment) is inconclusive due to [...] range of 1.1 cm2. AoV resting Mean Ymmlngps36tjWk.. Mitral Valve Mild MV leaflet thickeni ng. Mild mitral regurgitation. Mil d mitral annular calcification. Tricuspid Valve Otnf-fx-jbzbatym tricusp id regurgitation. Estimated peak systolic PA pressure is 45-50 mmHg (mild pulmonary hypertension) . Pulmonic Valv e Normal PV structure and function by limited views and Doppler. Aorta Aortic root size (SInus of Valsalva diam eter) is normal . Proximal ascending aorta size mildly dilated . 3.6 cm Pericardium No significant per icardial effusion is visualized. IVC/SVC/PA/PV/Pleural The estimated RA pressu re by IVC dynamics 11-15mmHg . Chambers/Structures Left A trium LA Volume: 130.88 ml LA Area: 33.87 cm^2 LA Vol. Index : 65 ml/m^2 Left Ventricle LVIDd: 5.85 cm LV Septum Diastolic: 0.83 cm LV PW D iastolic: 1 cm LVOT Diameter: 1.95 cm Right Atrium RA Vol. (Sngl Plan e): 68.41 ml Right Ventricle TAPSE: 1.5 cm Aorta Ao Root S of Jeannie.: 1.42 cm Ascending Aorta: 3.64 cm Doppler/Quantitative Me asurements Aortic Valve Peak Velocity: 3.45 m/s Mean Velocity: 2.49 m/s Peak Gradient: 47.71 mmHg Mean Gradient: 28.33 mmHg AV Area (continuity): 1.07 cm^2 AV VTI: 89.77 cm AV DVI: 0.36 LVOT Peak Velocity : 1.27 m/s Peak Gradient: 6.46 mmHg Mean Velocity: 0.96 m/s Mean Gradient: 4.14 mmHg LVOT Diameter: 1.95 cm LVOT VTI: 32.22 cm LVOT Area: 2.99 cm^2 LVOT SV:96.18 ml LVOT CO: 6.44 l/min LVOT CI: 3.22 l/min/m^2 Tricuspid Valve TR Velocity: 3.03 m/s TR Gradient: 36.69 mmHg [facility] [id number] 13:52:00 * Test Item Value Reference Range Interpretation Comments Troponin I (test code = 18014-3) 0.03 ng/mL 0-0.03 JEANINE (test code = JEANINE) Troponin I (TnI) levels must be interpreted in the context of the presenting symptoms and the clinical findings. Elevated TnI levels indicate myocardial damage, but are not specific for ischemic heart disease. Elevated TnI levels are seen in patients with other cardiac conditions (including myocarditis and congestive heart failure), and slight TnI elevations occur in patients with other conditions, including sepsis, renal failure, acidosis, acute neurological disease, and persistent tachyarrhythmia.Car Shakeout Operator ID - ANNMARIE C Lab Interpretation (test code = 56062-1) Normal [facility] [id number] 13:52:00* Test Item Value Reference Range Interpretation Comments TROPONIN I (BEAKER) (test code = 397) 0.03 ng/mL 0.00-0.03 Troponin I (TnI) levels must be interpreted in the context of the presenting sym ptoms and the clinical findings. Elevated TnI levels indicate myocardial damage, but are not specific for ischemic heart disease. Elevated TnI levels are seen i n patients with other cardiac conditions (including myocarditis and congestive h eart failure), and slight TnI elevations occur in patients with other conditions , including sepsis, renal failure, acidosis, acute neurological disease, and per sistent tachyarrhythmia.Car Shakeout Operator ID - ANNMARIE CURINALYSIS W/ REFLEX URINE CULTURE 2019-12-16 13:20:00* Test Item Value Reference Range Interpretation Comments COLOR (BEAKER) (test code = 470) Colorless CLARITY (BEAKER) (test code = 469) Clear SPECIFIC GRAVITY UA (BEAKER) (test code = 468) 1.006 1.001-1 .035 PH UA (BEAKER) (test code = 467) 7.5 5.0-8.0 PROTEIN UA (BEAKER) (test code = 464) Negative Negative GLUCOSE UA (BEAKER) (test code = 365) Negative Negative KETONES UA (BEAKER) (test code = 371) Negative Negative BILIRUBIN UA (BEAKER) (test code = 462) Negative Negative BLOOD UA (BEAKER) (test code = 461) Small Negative A NITRITE UA (BEAKER) (test code = 465) Negative Negative LEUKOCYTE ESTERASE UA (BEAKER) (test code = 466) Negative Negat rogelio UROBILINOGEN UA (BEAKER) (test code = 463) 0.2 mg/dL 0.2-1.0 RBC UA (BEAKER) (test code = 519) 19 /HPF WBC UA (BEAKER) (test code = 520) < /HPF SQUAMOUS EPITHELIAL (BEAKER) (test code = 516) < /HPF SOURCE(BEAKER) (test code = 2795) Car Shakeout Operator ID - [auto]Car Shakeout Operator ID - techPOCT-GLUCOSE [id number] 13:16:00* Test Item Value Reference Range Interpretation Comments POC-GLUCOSE METER (BEAKER) (test code = 1538) 108 mg/dL 70-110 : TESTED AT [facility] [address], [address]: Car Shakeout Operator/Crew Leader ID = [id number] for JOHANNY BRAGG CT chest without IV bojbegho7563-71-42 10:18:00Interface, External Ris In - 12/17/2019 4:02 PM CDTAddendum BeginsREPORT STATUS:A There is mild irregularity and sclerosis of the right anterior eighth rib. This is likely due to an old, healed fracture. Signed: Rosalinda Snowden MDReport Verified Date/Time: 12/17/2019 16:00:27 Reading Location: [facility] C013Y CT Body Reading RoomAddendum EndsFINAL REPORT TECHNIQUE: CT scan of the chest [...] visualized thyroid gland is normal. No significant me diastinal, hilar, or axillary lymphadenopathy. The left atrium is enlarged. Mild calcification of the aortic arch and descending thoracic aorta. Marked calcific ation of the coronary arteries. Prior CABG The fluid and the heart is low-densit y myocardium, consistent with anemia. SOFT TISSUES AND BONES: A device overlies the left lateral chest. Prior median sternotomy. The sternotomy is unhealed. Mod erate degenerative disc changes of the visualized spine. UPPER ABDOMEN: Calcific ation of the small vessels of the abdomen. Moderate calcification of the abdomin al aorta. IMPRESSION: 1.Pulmonary venous congestion. 2.There is a small, locula patel effusion along the left major fissure. 3.A right middle lobe pulmonary nodul e measures 0.4 cm. If the patient is at increased risk for lung cancer, an optio nal follow-up chest CT can be obtained in 12 months. Otherwise, no CT follow-up is necessary. Signed: Rosalinda Snowden MDReport Verified Date/Time: 12/16/2019 10:18: 14 Reading Location: [facility] C013Y CT Body Reading Room Electronically ally d by: ROSALINDA SNOWDEN MD on 12/17/2019 04:00 PM [facility] BASIC METABOLIC [id number] 09:49:00* Test Item Value Reference Range Interpretation Comments SODIUM (BEAKER) (test code = 381) 134 meq/L 136-145 L POTASSIUM (BEAKER) (test code = 379) 4.9 meq/L 3.5-5.1 CHLORIDE (BEAKER) (test code = 382) 97 meq/L 98-107 L CO2 (BEAKER) (test code = 355) 29 meq/L 22-29 BLOOD UREA NITROGEN (BEAKER) (test code = 354) 28 mg/dL 7-21 H CREATININE (BEAKER) (test code = 358) 1.70 mg/dL 0.57-1.25 H GLUCOSE RANDOM (BEAKER) (test code = 652) 103 mg/dL 70-105 CALCIUM (BEAKER) (test code = 697) 8.9 mg/dL 8.4-10.2 EGFR (BEAKER) (test code = 1092) INSUFFICIENT CLINICAL DATA TO CALCULATE ESTIMATED GFR. Car Shakeout Operator ID - LULU LTROPONIN [id number] 09:32:00* Test Item Value Reference Range Interpretation Comments TROPONIN I (BEAKER) (test code = 397) 0.05 ng/mL 0.00-0.03 H Troponin I (TnI) levels must be interpreted in the context of the presenting sym ptoms and the clinical findings. Elevated TnI levels indicate myocardial damage, but are not specific for ischemic heart disease. Elevated TnI levels are seen i n patients with other cardiac conditions (including myocarditis and congestive h eart failure), and slight TnI elevations occur in patients with other conditions , including sepsis, renal failure, acidosis, acute neurological disease, and per sistent tachyarrhythmia.Car Shakeout Operator ID - LULU [id number] 09:26:00* Test Item Value Reference Range Interpretation Comments PHOSPHORUS (BEAKER) (test code = 604) 3.1 mg/dL 2.3-4.7 Car Shakeout Operator ID - LULU [id number] 09:26:00* Test Item Value Reference Range Interpretation Comments MAGNESIUM (BEAKER) (test code = 627) 2.0 mg/dL 1.6-2.6 Car Shakeout Operator ID - LULU LCBC W/PLT COUNT & AUTO [id number] 09:08:00* Test Item Value Reference Range Interpretation Comments WHITE BLOOD CELL COUNT (BEAKER) (test code = 775) 10.7 K/ L 3.5- 10.5 H RED BLOOD CELL COUNT (BEAKER) (test code = 761) 3.09 M/ L 3.93-5 .22 L HEMOGLOBIN (BEAKER) (test code = 410) 9.3 GM/DL 11.2-15.7 L HEMATOCRIT (BEAKER) (test code = 411) 30.4 % 34.1-44.9 L MEAN CORPUSCULAR VOLUME (BEAKER) (test code = 753) 98.4 fL 79. 4-94.8 H MEAN CORPUSCULAR HEMOGLOBIN (BEAKER) (test code = 751) 30.1 pg 25.6-32.2 MEAN CORPUSCULAR HEMOGLOBIN CONC (BEAKER) (test code = 752) 30.6 GM/DL 32.2-35.5 L RED CELL DISTRIBUTION WIDTH (BEAKER) (test code = 412) 17.9 % 11.7-14.4 H PLATELET COUNT (BEAKER) (test code = 756) 246 K/CU MM 150-450 MEAN PLATELET VOLUME (BEAKER) (test code = 754) 10.0 fL 9.4-12 .3 NUCLEATED RED BLOOD CELLS (BEAKER) (test code = 413) 0 /100 WBC 0 -0 NEUTROPHILS RELATIVE PERCENT (BEAKER) (test code = 429) 67 % LYMPHOCYTES RELATIVE PERCENT (BEAKER) (test code = 430) 21 % MONOCYTES RELATIVE PERCENT (BEAKER) (test code = 431) 8 % EOSINOPHILS RELATIVE PERCENT (BEAKER) (test code = 432) 4 % BASOPHILS RELATIVE PERCENT (BEAKER) (test code = 437) 1 % NEUTROPHILS ABSOLUTE COUNT (BEAKER) (test code = 670) 7.15 K/ L 1.56-6.13 H LYMPHOCYTES ABSOLUTE COUNT (BEAKER) (test code = 414) 2.18 K/ L 1.18-3.74 MONOCYTES ABSOLUTE COUNT (BEAKER) (test code = 415) 0.82 K/ L 0. 24-0.36 H EOSINOPHILS ABSOLUTE COUNT (BEAKER) (test code = 416) 0.40 K/ L 0.04-0.36 H BASOPHILS ABSOLUTE COUNT (BEAKER) (test code = 417) 0.05 K/ L 0. 01-0.08 IMMATURE GRANULOCYTES-RELATIVE PERCENT (BEAKER) (test code = 2801) 1 % 0-1 POCT-GLUCOSE [id number] 08:28:00* Test Item Value Reference Range Interpretation Comments POC-GLUCOSE METER (BEAKER) (test code = 1538) 101 mg/dL 70-110 : TESTED AT [facility] [address], [address]: Car Shakeout Operator/Crew Leader ID = [id number] for MAHSAJOHANNY CHEST SINGLE (PORTABLE)2019-12-15 21:30:00 [place] [address] Patient Name: DUKE AUGUSTINE MR #: [id number] : 1945 Age/Sex: 74/F Req #: [id number] Adm Physician: Ordered by: MARJORIE ARCINIEGA DO Report #: [id number] Location: ER Room/Bed: Procedure: [id number] DX/CHEST S BELL (PORTABLE) Exam Date: 12/15/19 Exam Time: 2111 REPORT STATUS: Signed EXAMINATI ON: CHEST SINGLE (PORTABLE) INDICATION: Chest pain LION RISON: 11/10/2019 FINDINGS: AP view TUBES and LINES: Left me chanical cardiac device. LUNGS: Ill-defined nodular opacity of the left hil ar region, more distinct on today's examination when compared to the previous study. The right lung is clear. PLEURA: No pleural effusion or pneumotho rax. HEART AND MEDIASTINUM: The cardiomediastinal silhouette is unchanged. BONES AND SOFT TISSUES: No acute osseous lesion. Sternotomy wires. So ft tissues are unremarkable. UPPER ABDOMEN: No free air under the diaphra gm. IMPRESSION: Ill-defined left hilar nodular opacity, more dist inct on today's examination. This may reflect prominent pulmonary vasculature; however, a routine CT scan of the chest with contrast is recommended when cli nically feasible to exclude underlying mass. Signed by: Navi Atkinson MD on 12/15/2019 9:32 PM Dictated By: NAVI ATKINSON MD Electronically S igned By: NAVI ATKINSON MD on 12/15/192131 Transcribed By: JEANETTE on 2131 COPY TO: MARJORIE ARCINIEGA DO BNP Bog-[id number] 20:38:00* Test Item Value Reference Range Interpretation Comments B-Type Natriuretic Peptide (test code = 82886-8) 795.6 0-100 [facility] or plasma creatine kinase measurement (enzymatic activity/volume)2019-12-15 20:38:00* Test Item Value Reference Range Interpretation Comments Creatine Kinase (test code = 2157-6) 39 29-168 [facility]heasterum or plasma creatine kinase MB measurement (mass/volume)2019-12-15 20:38:00* Test Item Value Reference Range Interpretation Comments Creatine Kinase MB (test code = 55961-2) 1.10 0-5.0 [facility] SouthTroponin I measurement by highly sensitive enzyme kqlhlcgjrhd8209-76-91 20:38:00* Test Item Value Reference Range Interpretation Comments Troponin I (test code = 54483-2) 0.014 0-0.300 [facility]asterum or plasma amylase measurement (enzymatic activity/volume)2019-11-17 01:40:00* Test Item Value Reference Range Interpretation Comments Amylase Level (test code = 1798-8) 41 25-125 [facility]asterum or plasma lipase measurement (enzymatic activity/volume)2019-11-17 01:40:00* Test Item Value Reference Range Interpretation Comments Lipase (test code = 3040-3) 12 8-78 [facility] SouthFluoroscopic procedure less than one hour bsumsclz7785-68-24 18:16:00* Test Item Value Reference Range Interpretation Comments Lactic Acid Level (test code = Lactic Acid Level) 0.9 0.5- 2.0 [facility] SouthAutomated reticulocyte count as percentage of total hvngavclvpmk6252-30-55 06:25:00* Test Item Value Reference Range Interpretation Comments Percent Reticulocyte Count (test code = 53432-4) 3.1 0.8-2 .2 [facility] SouthBlood cobalamin (vitamin B12) measurement (mass/volume)2019-11-11 06:25:00* Test Item Value Reference Range Interpretation Comments Vitamin B12 Level (test code = 03463-0) 402 213-816 [facility] SINGLE (PORTABLE)2019-11-10 18:30:00 [facility] [address] [address] Patient Name: DUKE AUGUSTINE MR #: [id number] : 1945 Age/Sex: 74/F Req #: [id number] Adm Physician: Ordered by: HENOK BRANTLEY HARDBOARD PRESS OPERATOR Report #: [id number] Location: ER Room/Bed: Procedure: [id number] DX/CHEST SI NGLE (PORTABLE) Exam Date: 11/10/19 Exam Time: 1819 REPORT STATUS: Signed Examinatio n: Single AP view of the chest. COMPARISON: None. INDICATION: Diarrhea , vomiting DISCUSSION: Lines/tubes: Single-lead cardiac device. Sternotomy wires. Post surgical change to the mediastinum. Lungs: The romeo ngs are well inflated and clear. No pneumonia or pulmonary edema. Pleura: No pleural effusion or pneumothorax. Heart and mediastinum: The heart and the mediastinum are unremarkable. Bones and soft tissues: No acute bony ab normalities. IMPRESSION: 1. No acute cardiopulmonary abnormalitie s. Signed by: Dr. Tacos Cadet M.D. on 11/10/2019 6:31 PM Dictated By: TACOS CADET MD 30 COPY TO: ILENE BRANTLEY NP Prothrombin time (PT) in platelet poor plasma by coagulation [id number] 17:51:00* Test Item Value Reference Range Interpretation Comments Prothrombin Time (test code = 5902-2) 15.7 11.9-14.5 [facility] SouthINR in Platelet poor plasma by Coagulation fncsb5722-15-70 17:51:00* Test Item Value Reference Range Interpretation Comments Prothromb Time International Ratio (test code = 6301-6) 1.17 Oral Anticoagulant Therapy INR Values:1. Low Intensity Therapy 1.5 - 2.02 . Moderate Intensity Therapy 2.0 - 3.03. High Intensity Therapy(1) 2.5 - 3. 54. High Intensity Therapy(2) 3.0 - 4.05. Panic Value INR > 5.0 [facility] SouthActivated partial thromboplastin time (aPTT) in platelet poor plasma by coagulation bscnu2850-93-73 17:51:00* Test Item Value Reference Range Interpretation Comments Activated Partial Thromboplast Time (test code = 34366-1) 25.0 23.8-35.5 [facility] SouthUrine color pwehnyqqsvfbw3727-92-84 17:50:00* Test Item Value Reference Range Interpretation Comments Urine Color (test code = 5778-6) YELLOW YELLOW [facility] SouthUrine jwluijy0743-83-04 17:50:00* Test Item Value Reference Range Interpretation Comments Urine Clarity (test code = 04596-2) CLOUDY CLEAR [facility] Southeastpecific gravity of Urine by Test strip 2019-11-10 17:50:00* Test Item Value Reference Range Interpretation Comments Urine Specific [place] (test code = 5811-5) 1.015 1.010-1.02 5 [facility] SouthUrine pH measurement by automated test ggdhg3049-15-79 17:50:00* Test Item Value Reference Range Interpretation Comments Urine pH (test code = 70098-8) 5.5 5-7 [facility] SouthUrine leukocyte esterase detection by vghkyihq3554-15-27 17:50:00* Test Item Value Reference Range Interpretation Comments Urine Leukocyte Esterase (test code = 5799-2) MODERATE NEGATIVE [facility] SouthUrine nitrite hfwkpmvww8154-00-44 17:50:00* Test Item Value Reference Range Interpretation Comments Urine Nitrite (test code = 63552-2) NEGATIVE NEGATIVE [facility] SouthUrine protein measurement by test strip (mass/volume)2019-11-10 17:50:00* Test Item Value Reference Range Interpretation Comments Urine Protein (test code = 5804-0) NEGATIVE NEGATIVE [facility] SouthUrine glucose xeztpvbro0839-29-47 17:50:00* Test Item Value Reference Range Interpretation Comments Urine Glucose (UA) (test code = 2349-9) NEGATIVE NEGATIVE [facility] SouthUrine ketones detection by automated test cxisv7831-21-95 17:50:00* Test Item Value Reference Range Interpretation Comments Urine Ketones (test code = 98697-5) NEGATIVE NEGATIVE [facility] SouthUrine urobilinogen measurement by test strip (mass/volume)2019-11-10 17:50:00* Test Item Value Reference Range Interpretation Comments Urine Urobilinogen (test code = 72064-1) 0.2 0.2-1 [facility] SouthUrine total bilirubin measurement (mass/volume)2019-11-10 17:50:00* Test Item Value Reference Range Interpretation Comments Urine Bilirubin (test code = 1978-6) NEGATIVE NEGATIVE [facility] SouthUrine erythrocytes hgcdbumis4898-32-78 17:50:00* Test Item Value Reference Range Interpretation Comments Urine Blood (test code = 22715-9) MODERATE NEGATIVE [facility] SouthAutomated urine sediment leukocyte count by microscopy (number/high power field)2019-11-10 17:50:00* Test Item Value Reference Range Interpretation Comments Urine WBC (test code = 5821-4) 11-20 0-5 [facility] SouthErythrocytes detection in urine sediment by light pgihloxblb0911-36-73 17:50:00* Test Item Value Reference Range Interpretation Comments Urine RBC (test code = 88685-3) 11-20 0-5 [facility] SouthBacteria detection in urine sediment by light mwghfejhwc8415-10-22 17:50:00* Test Item Value Reference Range Interpretation Comments Urine Bacteria (test code = 29117-4) MANY NONE [facility] SouthEpithelial cells detection in urine sediment by light vqzduzfjvc8197-39-06 17:50:00* Test Item Value Reference Range Interpretation Comments Urine Epithelial Cells (test code = 06518-6) MODERATE NONE [facility] SouthBacterial urine sguexok9778-40-17 17:50:00* Test Item Value Reference Range Interpretation Comments Urine Culture (test code = 630-4) KLEBSIELLA PNEUMONIAE-ESBL [facility] SouthCT ABDOMEN/PELVIS [id number] 15:06:00 [facility] [address] [address] Patient Name: DUKE AUGUSTINE MR #: [id number] : [birth year] Age/Sex: 73/F Req #: [id number] Adm Physician: Ordered by: BALDOMERO WELSH MD Report #: [id number] Location: CT Room/Bed: Procedure: [id number] CT/ CT ABDOMEN/PELVIS WO Exam Date: 03/08/19 Exam Time: 1340 REPORT STATUS: Signed EXAM: CT Abdomen and Pelvis WITHOUT intravenous contrast INDICATION: Hernia, a bdominal pain COMPARISON: CT abdomen pelvis of 08/25/2018 TECHNIQUE: Ab domen and pelvis were scanned utilizing a multidetector helical scanner from t he lung base to the pubic symphysis without administration of IV contrast. Cor onal and sagittal reformations were obtained. IV CONTRAST: None ORA L CONTRAST: Gastrografin COMPLICATIONS: None RADIATION DOS E: Total DLP: 786.2 mGy*cm Dose modulation, iterative reconstruction, an d/or weight based adjustment of the mA/kV was utilized to reduce the radiation dose to as low as reasonably achievable. FINDINGS: LOWER THORAX: 3 mm right middle lobe pulmonary nodule. Bibasilar dependent subsegmental atelecta sis. Multichamber cardiomegaly. Atherosclerotic coronary artery calcifications . HEPATOBILIARY: No focal hepatic lesions. No biliary ductal dilatation. T he gallbladder appears unremarkable. SPLEEN: No splenomegaly. PANCRE : No focal masses or ductal dilatation. ADRENALS: No adrenal nodules. K IDNEYS/URETERS: No hydronephrosis, stones, or solid mass lesions. PELVIC ORGAN S/BLADDER: Obscured due to streak artifact from right total hip arthroplasty. No definite focal abnormality. PERITONEUM / RETROPERITONEUM: No free air o r fluid. LYMPH NODES: No lymphadenopathy. VESSELS: Diffuse atherosclerotic c alcifications of the nonaneurysmal abdominal aorta and major branches. GI TRACT: Status post gastric lap band placement. No abnormal bowel wall thicken ing. No bowel obstruction. Extensive sigmoid diverticulosis with no CT evidenc e of diverticulitis. Right-sided diverticulosis. BONES AND SOFT TISSUES: Ri ght total hip replacement. Diffuse osteopenia. No acute osseous injury. Degene rative changes of the visualized spine with grade 1 retrolisthesis at T11-L2. IMPRESSION: Status post gastric lap band placement no abnormal bowel wal l thickening or bowel obstruction. Right and left diverticulosis without CT ev idence of diverticulitis. Diffuse atherosclerotic calcifications includin g of the coronary arteries. Signed by: Tracy Pope MD on 03/08/2019 3:16 PM Dictated By: TRACY POPE MD 1516 COPY TO: ADELAIDA WELSH MD Bedside Jvepjox6347-03-64 12:00:00* Test Item Value Reference Range Interpretation Comments Bedside Glucose (test code = 58787-2) 86 70-120 Meter ID: [id number] Southeastodium Level 2019-02-09 17:00:00* Test Item Value Reference Range Interpretation Comments Sodium Level (test code = 2951-2) 135 136-145 L [facility] SouthPotassium Ngbxq7752-22-19 17:00:00* Test Item Value Reference Range Interpretation Comments Potassium Level (test code = 2823-3) 5.1 3.5-5.1 NO HEMOLYSIS PRESENTTexas [facility] SouthChloride Level 2019-02-09 17:00:00* Test Item Value Reference Range Interpretation Comments Chloride Level (test code = 2075-0) 96 98-107 L [facility] SouthCarbon Dioxide Hghwa8957-43-25 17:00:00* Test Item Value Reference Range Interpretation Comments Carbon Dioxide Level (test code = 2028-9) 29 22-29 [facility] SouthAnion [id number] 17:00:00* Test Item Value Reference Range Interpretation Comments Anion Gap (test code = 89020-9) 15.1 8-16 [facility] SouthBlood Urea Dzfhdlbp0557-83-86 17:00:00* Test Item Value Reference Range Interpretation Comments Blood Urea Nitrogen (test code = 3094-0) 51 7-26 H [facility] SouthCreatinine2019-08-29 17:00:00* Test Item Value Reference Range Interpretation Comments Creatinine (test code = 2160-0) 3.08 0.57-1.11 H [facility] SouthBUN/Creatinine Vblnj5671-93-54 17:00:00* Test Item Value Reference Range Interpretation Comments BUN/Creatinine Ratio (test code = 3097-3) 17 6-25 [facility] SouthEstimat Glomerular Filtration Rate 2019-02-09 17:00:00* Test Item Value Reference Range Interpretation Comments Estimat Glomerular Filtration Rate (test code = 578843387) 15 >60 L Ranges were taken from the National Kidney Disease Education Program and the [facility] Foundation literature.Reference ranges:60 or greater: Ymfqwt67-86 ( for 3 consecutive months): Chronic kidney disease 15 or less: Kidney failureTexas Health Huguley Hospital [facility] Worth SouthGlucose Exits5065-16-14 17:00:00* Test Item Value Reference Range Interpretation Comments Glucose Level (test code = FQO9095) 168 74-118 H [facility] SouthCalcium Qhxvh7842-71-11 17:00:00* Test Item Value Reference Range Interpretation Comments Calcium Level (test code = 27381-7) 9.4 8.4-10.2 [facility] SouthWhite Blood Lavzg6892-15-40 16:41:00* Test Item Value Reference Range Interpretation Comments White Blood Count (test code = 6690-2) 7.03 4.8-10.8 [facility] SouthRed Blood Rafey5093-38-92 16:41:00* Test Item Value Reference Range Interpretation Comments Red Blood Count (test code = 789-8) 3.36 3.6-5.1 L [facility] SouthHemoglobin2019-08-29 16:41:00* Test Item Value Reference Range Interpretation Comments Hemoglobin (test code = 98495-7) 10.1 12.0-16.0 L [facility] SouthHematocrit2019-08-29 16:41:00* Test Item Value Reference Range Interpretation Comments Hematocrit (test code = 4544-3) 32.4 34.2-44.1 L [facility] SouthMean Corpuscular Likcld8656-20-01 16:41:00* Test Item Value Reference Range Interpretation Comments Mean Corpuscular Volume (test code = 787-2) 96.4 81-99 [facility] SouthMean Corpuscular Yegjdgpncp0154-66-33 16:41:00* Test Item Value Reference Range Interpretation Comments Mean Corpuscular Hemoglobin (test code = 785-6) 30.1 28-32 [facility] SouthMean Corpuscular Hemoglobin Concent 2019-02-09 16:41:00* Test Item Value Reference Range Interpretation Comments Mean Corpuscular Hemoglobin Concent (test code = 786-4) 31.2 31-35 [facility] SouthRed Cell Distribution Xbosu8118-47-49 16:41:00* Test Item Value Reference Range Interpretation Comments Red Cell Distribution Width (test code = 83315-7) 12.7 11.7 -14.4 [facility] SouthPlatelet Dayla9983-81-68 16:41:00* Test Item Value Reference Range Interpretation Comments Platelet Count (test code = 777-3) 200 140-360 [facility] SouthNeutrophils (%) (Auto)2019-02-09 16:41:00 * Test Item Value Reference Range Interpretation Comments Neutrophils (%) (Auto) (test code = 11354-2) 55.7 38.7-80.0 [facility] SouthLymphocytes (%) (Auto)2019-02-09 16:41:00 * Test Item Value Reference Range Interpretation Comments Lymphocytes (%) (Auto) (test code = 736-9) 31.7 18.0-39.1 [facility] SouthMonocytes (%) (Auto)2019-02-09 16:41:00* Test Item Value Reference Range Interpretation Comments Monocytes (%) (Auto) (test code = 5905-5) 9.1 4.4-11.3 [facility] SouthEosinophils (%) (Auto)2019-02-09 16:41:00 * Test Item Value Reference Range Interpretation Comments Eosinophils (%) (Auto) (test code = 713-8) 2.8 0.0-6.0 [facility] SouthBasophils (%) (Auto)2019-02-09 16:41:00* Test Item Value Reference Range Interpretation Comments Basophils (%) (Auto) (test code = 706-2) 0.4 0.0-1.0 [facility] SouthIM GRANULOCYTES %2019-02-09 16:41:00* Test Item Value Reference Range Interpretation Comments IM GRANULOCYTES % (test code = IM GRANULOCYTES %) 0.3 0.0- 1.0 [facility] SouthNeutrophils # (Auto)2019-02-09 16:41:00* Test Item Value Reference Range Interpretation Comments Neutrophils # (Auto) (test code = 751-8) 3.9 2.1-6.9 [facility] SouthLymphocytes # (Auto)2019-02-09 16:41:00* Test Item Value Reference Range Interpretation Comments Lymphocytes # (Auto) (test code = 87628-3) 2.2 1.0-3.2 [facility] SouthMonocytes # (Auto)2019-02-09 16:41:00* Test Item Value Reference Range Interpretation Comments Monocytes # (Auto) (test code = 742-7) 0.6 0.2-0.8 [facility] SouthEosinophils # (Auto)2019-02-09 16:41:00* Test Item Value Reference Range Interpretation Comments Eosinophils # (Auto) (test code = 711-2) 0.2 0.0-0.4 [facility] SouthBasophils # (Auto)2019-02-09 16:41:00* Test Item Value Reference Range Interpretation Comments Basophils # (Auto) (test code = 704-7) 0.0 0.0-0.1 [facility] SouthAbsolute Immature Granulocyte (auto 2019-02-09 16:41:00* Test Item Value Reference Range Interpretation Comments Absolute Immature Granulocyte (auto (shantelle t code = Absolute Immature Granulocyte (auto) 0.02 0-0.1 [facility] SouthCHEST 2 MRSJP1780-52-88 16:41:00 [facility] [address] [address] Patient Name: DUKE AUGUSTINE MR #: [id number] : 1945 Age/Sex: 73/F Req #: [id number] Adm Physician: Ordered by: BALDOMERO WELSH MD Report #: [id number] Location: OR Room/Bed: Procedure: [id number] DX/ CHEST 2 VIEWS Exam Date: 02/09/19 Exam Time: 1630 REPORT STATUS: Signed Exam: PA and lateral chest radiograph Clinical history: Preoperative clearance Fin dings: There is mild cardiomegaly. There is no evidence of pulmonary consolida tion, pleural effusion, or pneumothorax. The patient is status post median ashia rnotomy. The regional osseous structures are unremarkable. Impression: 1. Mild cardiomegaly. Signed by: Dr. Miguel Caldwell MD on 02/09/2019 4:42 PM Dictated By: RAQUEL CALDWELL MD 41 Transcribed By: JEANETTE on 02/09/191641 COPY TO: BALDOMERO CEDEÑO MD - CT ABD PELVIS W/O [id number] 16:04:00 Name: DUKE AUGUSTINE [facility] : 1945 Age/S: 73 / F [address] [facility] Unit #: [id number] Loc: [place] [address] Phys: Lorne Welsh MD Acct: [id number] Di s Date: Status: REG CLI PHONE #: Exam Date: 02/06/2019 1304 FAX #: Reason: HERNIA EXAMS: CPT CODE: [id number] CT ABD PELVIS W/O CONT 98958 REASON FOR EXAM: HERNIA EXAM ORDER DATE: 02/06/2019 1:00 PM Ordering M.D.: Lorne Welsh MD PROCEDURE: - CT ABD PELVIS W/O CONT noncontrast ax ial CT images were acquired through the abdomen/pelvis at 5 mm intervals. Sagittal and coronal reformatted images were generated. Automated exposu re control was utilized for this reduction. Phases of contra st: None COMPARISON: Radiographs of the pelvis and hips performed in 2016 are available for review. No relevant cross-sectional studies. FINDINGS: The absence of IV contrast limits sensitivit y of this exam for the detection of soft tissue pathology Vi sualized thorax: Subxiphoid approach cardiac device is present. There is s ubsegmental atelectasis in the lower lobes and lingula. Coronary atheroscl erosis is present. Hepatobiliary system: Grossly normal Pancreas: Atrophic Spleen: Grossly normal Adrena l glands: Grossly normal Genitourinary system: Grossly normal Gastrointestinal tract and appendix: There is diverticular disease of the sigmoid colon. Moderate colonic stool burden. Gaseous distention of the transverse colon up to 6 cm. Gastric band is present. Small bowel is grossly unremarkable. Abdominal vascular structures: Atheroscle rotic disease is seen throughout the abdominal aorta and extends into the iliac arteries. Peritoneum and retroperitoneum: No free fluid or f ree air. No omental or mesenteric masses. No abnormal lymph nodes. P AGE 1 Signed Report (CONTINUED) Name : DUKE AUGUSTINEJERALD [facility] : [birth year] Age/S: 73 / F [address] Unit #: [id number] Loc: [place] [address] Phys: Baldomero Welsh MD Acct: [id number] Dis Date : Status: REG CLI PHONE #: Exam Date: 02/06/2019 1309 FAX #: [phone] Reason: HERNIA EXAMS: CPT CODE: [id number] CT ABD PELVIS W/[place] [address] <Continued> Musculoskeletal structures and abdominal wall: Right hip hemiarthroplasty. Degenerative changes are present in the spine and the patient has levoscoliosis. There is a fat-containing infraumbilical ventral hernia with a neck that measures 2.0 cm in diameter. No fluid or inflammatory changes in the hernia sac. Gastric band port is located in the right upper abdomen. Prior sternotomy. IMPRESSION: Fat-containing infraumbilical ventral hernia with a neck measuring 2.0 cm in diameter. No inflammatory changes in the hernia sac. Gastric band is in place with the port located in the anterior wall of the abdomen overlying the li gracia. Moderate colonic stool burden with gaseous distention of the transverse colon up to 6 cm. This may represent constipation. Colonic diverticulosis without diverticulitis. at 1604 Reported and signed by: Ricky Jarvis MD CC: Tacos Whitaker DO Technologist:Adelaide Rodriguez,RT(R),CT CTDI: DLP: Trnscb Date/Time: 02/06/2019 (3615) t.[email or web address] Orig Print D/T: S: 02/06/2019 (0280) PAGE 2 Signed Repor t CREATININE W ESTIMATED [id number] 12:23:00* Test Item Value Reference Range Interpretation Comments BEDSIDE CREATININE (test code = CREATBED) mg/dL 0.7-1.3 HH GLOMERULAR FILTRATION RATE POC (test code = GFRBED) 28 >6 0 LL CREATININE W ESTIMATED [id number] 12:23:00* Test Item Value Reference Range Interpretation Comments BEDSIDE CREATININE (test code = CREATBED) 1.78 mg/dL 0.7-1.3 HH GLOMERULAR FILTRATION RATE POC (test code = GFRBED) 30 >6 0 LL Previously reported result: 28 Edited by: NITA on 02/06/19:383478 1223: GFRBED previously reported as: 28 *L Wound Ksrxfem6247-73-01 08:13:00* Test Item Value Reference Range Interpretation Comments Wound Culture (test code = 6462-6) Organism: PSEUDOMONAS AERUGINOSA [facility]it[facility] B1 Nvxgo6880-33-51 21:40:00* Test Item Value Reference Range Interpretation Comments Vitamin B1 Level (test code = 43257-0) 144.9 66.5-200.0 This test was developed and its performance characteristicsdetermined by [facility] . It has not been cleared orapproved by the Food and Drug Administration.Perform ed at: [address] [id number] Dir johnie: Melvin Davis MD, Phone: [phone] [facility] Jjnsqxv4806-23-27 12:51:00* Test Item Value Reference Range Interpretation Comments Bedside Glucose (test code = 34518-3) 174 70-120 H Meter ID: [id number] [facility] Glucose 2018-09-01 12:51:00* Test Item Value Reference Range Interpretation Comments Bedside Glucose (test code = 56782-4) 174 70-120 H Meter ID: [id number] [facility] BrookMODIFIED BA. SWALLOW 2018-09-01 11:12:[address] [address] Patient Name: DUKE AUGUSTINE MR #: [id number] : 1945 Age/Sex: 73/F Req #: [id number] Adm Physician: ALONDRA MOREIRA MD Ordered by: ALONDRA MOREIRA MD Report #: [id number] Location: [facility] Room/Bed: [address] [address] Procedure: [id number] DX/MODIFIED BA. SWALLOW Exam Date: 09/01/18 Exam Ti me: 0930 REPORT STATUS: Signed E XAM: Modified barium swallow with Speech Pathologist INDICATION: aspi ration precaution [id number] COMPARISON: None available. RADIATI ON DOSE: Fluoroscopy Time: 1.0 min Dose (Kerma) Area Product: 1. 89 Gycm2 Air Kerma (AK) value has been reviewed. It is below the limits set by the Radiation Protocol Committee (RPC) committee. FINDINGS: See i mpression IMPRESSION: Laryngeal penetration and suspected aspiratio n with thin liquids. Refer to speech pathology report for further details and recommendations. Signed by: Dr. Baldomero Oneal M.D. on 09/01/2018 1 1:13 AM Dictated By: BALDOMERO ONEAL MD 1113 Transcribed By: JEANETTE on 09/01/18 1113 COPY T O: ALONDRA MOREIRA MD Blood Rxsxjra5550-85-77 08:12:00* Test Item Value Reference Range Interpretation Comments Blood Culture (test code = 59156268) NO GROWTH AFTER 5 DAYS, FINAL REPORT [facility] SouthBlood Qofvthe2629-64-46 08:12:00* Test Item Value Reference Range Interpretation Comments Blood Culture (test code = 50136349) NO GROWTH AFTER 5 DAYS, FINAL REPORT [facility] SouthBlood Mghznbr5023-84-09 08:12:00* Test Item Value Reference Range Interpretation Comments Blood Culture (test code = 66747947) NO GROWTH AFTER 5 DAYS, FINAL REPORT [facility] SouthHemoglobin2019-03-20 16:27:00* Test Item Value Reference Range Interpretation Comments Hemoglobin (test code = 67190-1) 7.4 12.0-16.0 L [facility] SouthHematocrit2019-03-20 16:27:00* Test Item Value Reference Range Interpretation Comments Hematocrit (test code = 4544-3) 23.7 34.2-44.1 L [facility] SouthHemoglobin2019-03-20 16:27:00* Test Item Value Reference Range Interpretation Comments Hemoglobin (test code = 92716-3) 7.4 12.0-16.0 L [facility] SouthHematocrit2019-03-20 16:27:00* Test Item Value Reference Range Interpretation Comments Hematocrit (test code = 4544-3) 23.7 34.2-44.1 L [facility] Elawsmupk1240-01-92 14:46:00* Test Item Value Reference Range Interpretation Comments Free Thyroxine (test code = 3024-7) 0.87 0.9-1.8 L [facility] SouthThyroid Stimulating Hormone (TSH) 2018-08-31 14:46:00* Test Item Value Reference Range Interpretation Comments Thyroid Stimulating Hormone (TSH) (test code = 93834-4) 2.213 0.350-4.940 [facility] Exrgdyapl2605-02-44 14:46:00* Test Item Value Reference Range Interpretation Comments Free Thyroxine (test code = 3024-7) 0.87 0.9-1.8 L [facility] SouthThyroid Stimulating Hormone (TSH) 2018-08-31 14:46:00* Test Item Value Reference Range Interpretation Comments Thyroid Stimulating Hormone (TSH) (test code = 42725-1) 2.213 0.350-4.940 [facility] Xykztrxbs1869-05-88 14:46:00* Test Item Value Reference Range Interpretation Comments Free Thyroxine (test code = 3024-7) 0.87 0.9-1.8 L [facility] SouthThyroid Stimulating Hormone (TSH) 2018-08-31 14:46:00* Test Item Value Reference Range Interpretation Comments Thyroid Stimulating Hormone (TSH) (test code = 71315-0) 2.213 0.350-4.940 [facility] SouthHemoglobin A1c Inrrokv6687-19-40 14:23:00 * Test Item Value Reference Range Interpretation Comments Hemoglobin A1c Percent (test code = Hemoglobin A1c Percent) 6.8 4.0-7.0 [facility] SouthHemoglobin A1c Rmmrpqa6772-06-40 14:23:00 * Test Item Value Reference Range Interpretation Comments Hemoglobin A1c Percent (test code = Hemoglobin A1c Percent) 6.8 4.0-7.0 [facility] SouthHemoglobin A1c Jdypjgz0164-72-00 14:23:00 * Test Item Value Reference Range Interpretation Comments Hemoglobin A1c Percent (test code = Hemoglobin A1c Percent) 6.8 4.0-7.0 [facility] SouthBlood Tkyqsli1067-47-58 13:00:00* Test Item Value Reference Range Interpretation Comments Blood Culture (test code = 600-7) Organism: BACTEROIDES THETAIOTAOM [facility] Nkkgaer1335-86-84 13:00:00* Test Item Value Reference Range Interpretation Comments Blood Culture (test code = 600-7) Organism: BACTEROIDES THETAIOTAOM [facility] Xjctpyw3269-00-05 13:00:00* Test Item Value Reference Range Interpretation Comments Blood Culture (test code = 600-7) Organism: BACTEROIDES THETAIOTAOM [facility] CenterPhosphorus Dqrqp2318-70-47 07:59:00* Test Item Value Reference Range Interpretation Comments Phosphorus Level (test code = TZE1374) 3.9 2.3-4.7 [facility] SouthMagnesium Dbizd3534-78-97 07:59:00* Test Item Value Reference Range Interpretation Comments Magnesium Level (test code = 74961-1) 2.1 1.3-2.1 [facility] SouthPhosphorus Dlqva7926-55-73 07:59:00* Test Item Value Reference Range Interpretation Comments Phosphorus Level (test code = UFY2099) 3.9 2.3-4.7 [facility] SouthMaesium Nkywz8577-97-84 07:59:00* Test Item Value Reference Range Interpretation Comments Magnesium Level (test code = 12290-4) 2.1 1.3-2.1 [facility] SouthPhosphorus Ozqth1200-76-97 07:59:00* Test Item Value Reference Range Interpretation Comments Phosphorus Level (test code = QDS4384) 3.9 2.3-4.7 [facility] SouthMagnesium Bloys8782-51-33 07:59:00* Test Item Value Reference Range Interpretation Comments Magnesium Level (test code = 37474-4) 2.1 1.3-2.1 [facility] SouthVitamin B6 Lffpo3113-83-53 07:50:00* Test Item Value Reference Range Interpretation Comments Vitamin B6 Level (test code = 2900-9) 3.5 2.0-32.8 This test was developed and its performance characteristicsdetermined by [employer] . It has not been cleared orapproved by the Food and Drug Administration.Perform ed at: [address] [id number] Dir johnie: Melvin Davis MD, Phone: [phone] Health [facility] SouthVitamin B6 Qmlhy0509-64-61 07:50:00* Test Item Value Reference Range Interpretation Comments Vitamin B6 Level (test code = 2900-9) 3.5 2.0-32.8 This test was developed and its performance characteristicsdetermined by [employer] . It has not been cleared orapproved by the Food and Drug Administration.Perform ed at: [address] [id number] Dir johnie: Melvin Davis MD, Phone: [phone] Health Hug[facility] SouthVitamin B6 Eofop4855-87-55 07:50:00* Test Item Value Reference Range Interpretation Comments Vitamin B6 Level (test code = 2900-9) 3.5 2.0-32.8 This test was developed and its performance characteristicsdetermined by [employer] . It has not been cleared orapproved by the Food and Drug Administration.Perform ed at: [address] [id number] Dir johnie: Melvin Davis MD, Phone: [phone] Houston Healthcare Southeastodium Bspsc0272-68-86 07:09:00* Test Item Value Reference Range Interpretation Comments Sodium Level (test code = 2951-2) 135 136-145 L [facility] SouthPotassium Frtor9608-35-24 07:09:00* Test Item Value Reference Range Interpretation Comments Potassium Level (test code = 2823-3) 4.1 3.5-5.1 [facility] SouthChloride Dhilb7392-86-06 07:09:00* Test Item Value Reference Range Interpretation Comments Chloride Level (test code = 2075-0) 103 98-107 [facility] SouthCarbon Dioxide Cspcb5081-15-89 07:09:00* Test Item Value Reference Range Interpretation Comments Carbon Dioxide Level (test code = 2028-9) 25 22-29 [facility] SouthAnion Txi8701-76-37 07:09:00* Test Item Value Reference Range Interpretation Comments Anion Gap (test code = 35573-8) 11.1 8-16 [facility] SouthBlood Urea Oaoaetnr1501-94-92 07:09:00* Test Item Value Reference Range Interpretation Comments Blood Urea Nitrogen (test code = 3094-0) 104 7-26 H [facility] SouthCreatinine2019-03-20 07:09:00* Test Item Value Reference Range Interpretation Comments Creatinine (test code = 2160-0) 3.04 0.57-1.11 H [facility] SouthBUN/Creatinine Cbwxe6905-27-91 07:09:00* Test Item Value Reference Range Interpretation Comments BUN/Creatinine Ratio (test code = 3097-3) 34 6-25 H [facility] SouthEstimat Glomerular Filtration Rate 2018-08-31 07:09:00* Test Item Value Reference Range Interpretation Comments Estimat Glomerular Filtration Rate (test code = 614179859) 15 >60 L Ranges were taken from the National Kidney Disease Education Program and the [facility] Kid[facility] Foundation literature.Reference ranges:60 or greater: Tpkiiy87-01 ( for 3 consecutive months): Chronic kidney disease 15 or less: Kidney failureTexas Health Huguley Hospital [facility] SouthGlucose Zupcr3601-74-70 07:09:00* Test Item Value Reference Range Interpretation Comments Glucose Level (test code = CHY8468) 245 74-118 H [facility] SouthCalcium Wivqn3738-91-06 07:09:00* Test Item Value Reference Range Interpretation Comments Calcium Level (test code = 13518-9) 8.1 8.4-10.2 L [facility] SouthTotal Dqjylheqw3961-73-68 07:09:00* Test Item Value Reference Range Interpretation Comments Total Bilirubin (test code = 1975-2) 0.3 0.2-1.2 [facility] SouthAspartate Amino Transf (AST/SGOT) 2018-08-31 07:09:00* Test Item Value Reference Range Interpretation Comments Aspartate Amino Transf (AST/SGOT) (test code = Aspartate Amino Transf (AST/SGOT)) 16 5-34 [facility] SouthAlanine Aminotransferase (ALT/SGPT) 2018-08-31 07:09:00* Test Item Value Reference Range Interpretation Comments Alanine Aminotransferase (ALT/SGPT) (test code = 1742-6) < 6 0-55 [facility] SouthTotal Uselvjx3798-78-96 07:09:00* Test Item Value Reference Range Interpretation Comments Total Protein (test code = 2885-2) 5.1 6.5-8.1 L [facility] SouthAlbumin2019-03-20 07:09:00* Test Item Value Reference Range Interpretation Comments Albumin (test code = 1751-7) 2.0 3.5-5.0 L [facility] SouthGlobulin2019-03-20 07:09:00* Test Item Value Reference Range Interpretation Comments Globulin (test code = 45941-6) 3.1 2.3-3.5 [facility] SouthAlbumin/Globulin Dhwzj8878-95-60 07:09:00 * Test Item Value Reference Range Interpretation Comments Albumin/Globulin Ratio (test code = 1759-0) 0.6 0.8-2.0 L [facility] SouthAlkaline Lxfxpsjgpmc7717-00-28 07:09:00* Test Item Value Reference Range Interpretation Comments Alkaline Phosphatase (test code = 6768-6) 74 40-150 [facility] Southeastodium Megox2713-88-50 07:09:00* Test Item Value Reference Range Interpretation Comments Sodium Level (test code = 2951-2) 135 136-145 L [facility] SouthPotassium Nnfue4368-68-03 07:09:00* Test Item Value Reference Range Interpretation Comments Potassium Level (test code = 2823-3) 4.1 3.5-5.1 [facility] SouthChloride Lkwfd4184-62-62 07:09:00* Test Item Value Reference Range Interpretation Comments Chloride Level (test code = 2075-0) 103 98-107 [facility] SouthCarbon Dioxide Htpdg6609-93-83 07:09:00* Test Item Value Reference Range Interpretation Comments Carbon Dioxide Level (test code = 2028-9) 25 22-29 [facility] SouthAnion Obd4628-66-39 07:09:00* Test Item Value Reference Range Interpretation Comments Anion Gap (test code = 23931-3) 11.1 8-16 [facility] SouthBlood Urea Gxwylsou1909-37-32 07:09:00* Test Item Value Reference Range Interpretation Comments Blood Urea Nitrogen (test code = 3094-0) 104 7-26 H [facility] SouthCreatinine2019-03-20 07:09:00* Test Item Value Reference Range Interpretation Comments Creatinine (test code = 2160-0) 3.04 0.57-1.11 H [facility] SouthBUN/Creatinine Phbgc3132-81-30 07:09:00* Test Item Value Reference Range Interpretation Comments BUN/Creatinine Ratio (test code = 3097-3) 34 6-25 H [facility] SouthEstimat Glomerular Filtration Rate 2018-08-31 07:09:00* Test Item Value Reference Range Interpretation Comments Estimat Glomerular Filtration Rate (test code = 737027932) 15 >60 L Ranges were taken from the National Kidney Disease Education Program and the [facility] Kid[facility] Foundation literature.Reference ranges:60 or greater: Craiom43-19 ( for 3 consecutive months): Chronic kidney disease 15 or less: Kidney failureCHI Adventhealth Rollins BrookGlucose Ubjwj3408-78-48 07:09:00* Test Item Value Reference Range Interpretation Comments Glucose Level (test code = DGY2375) 245 74-118 H [facility] SouthCalcium Kmqsu0702-92-27 07:09:00* Test Item Value Reference Range Interpretation Comments Calcium Level (test code = 44769-6) 8.1 8.4-10.2 L [facility] SouthTotal Nppxzsiew6156-38-02 07:09:00* Test Item Value Reference Range Interpretation Comments Total Bilirubin (test code = 1975-2) 0.3 0.2-1.2 [facility] SouthAspartate Amino Transf (AST/SGOT) 2018-08-31 07:09:00* Test Item Value Reference Range Interpretation Comments Aspartate Amino Transf (AST/SGOT) (test code = Aspartate Amino Transf (AST/SGOT)) 16 5-34 [facility] SouthAlanine Aminotransferase (ALT/SGPT) 2018-08-31 07:09:00* Test Item Value Reference Range Interpretation Comments Alanine Aminotransferase (ALT/SGPT) (test code = 1742-6) < 6 0-55 [facility] SouthTotal Quctnkj8247-92-65 07:09:00* Test Item Value Reference Range Interpretation Comments Total Protein (test code = 2885-2) 5.1 6.5-8.1 L [facility] SouthAlbumin2019-03-20 07:09:00* Test Item Value Reference Range Interpretation Comments Albumin (test code = 1751-7) 2.0 3.5-5.0 L [facility] SouthGlobulin2019-03-20 07:09:00* Test Item Value Reference Range Interpretation Comments Globulin (test code = 31089-8) 3.1 2.3-3.5 [facility] SouthAlbumin/Globulin Erjqh8958-83-86 07:09:00 * Test Item Value Reference Range Interpretation Comments Albumin/Globulin Ratio (test code = 1759-0) 0.6 0.8-2.0 L [facility] SouthAlkaline Grfsvprxigf2566-97-11 07:09:00* Test Item Value Reference Range Interpretation Comments Alkaline Phosphatase (test code = 6768-6) 74 40-150 [facility] SouthTotal Ipjtnkvae3470-42-21 07:09:00* Test Item Value Reference Range Interpretation Comments Total Bilirubin (test code = 1975-2) 0.3 0.2-1.2 [facility] SouthAspartate Amino Transf (AST/SGOT) 2018-08-31 07:09:00* Test Item Value Reference Range Interpretation Comments Aspartate Amino Transf (AST/SGOT) (test code = Aspartate Amino Transf (AST/SGOT)) 16 5-34 [facility] SouthAlanine Aminotransferase (ALT/SGPT) 2018-08-31 07:09:00* Test Item Value Reference Range Interpretation Comments Alanine Aminotransferase (ALT/SGPT) (test code = 1742-6) < 6 0-55 [facility] SouthTotal Zbwyfws9893-02-53 07:09:00* Test Item Value Reference Range Interpretation Comments Total Protein (test code = 2885-2) 5.1 6.5-8.1 L [facility] SouthAlbumin2019-03-20 07:09:00* Test Item Value Reference Range Interpretation Comments Albumin (test code = 1751-7) 2.0 3.5-5.0 L [facility] SouthGlobulin2019-03-20 07:09:00* Test Item Value Reference Range Interpretation Comments Globulin (test code = 48806-3) 3.1 2.3-3.5 [facility] SouthAlbumin/Globulin Gwnhz1829-44-04 07:09:00 * Test Item Value Reference Range Interpretation Comments Albumin/Globulin Ratio (test code = 1759-0) 0.6 0.8-2.0 L [facility] SouthAlkaline Wddvdfikrqt5808-37-08 07:09:00* Test Item Value Reference Range Interpretation Comments Alkaline Phosphatase (test code = 6768-6) 74 40-150 [facility] SouthWhite Blood Qdpod0202-80-34 06:41:00* Test Item Value Reference Range Interpretation Comments White Blood Count (test code = 6690-2) 19.89 4.8-10.8 H [facility] SouthRed Blood Ujkkk2191-52-04 06:41:00* Test Item Value Reference Range Interpretation Comments Red Blood Count (test code = 789-8) 2.36 3.6-5.1 L [facility] SouthMean Corpuscular Dlsori2748-83-25 06:41:00* Test Item Value Reference Range Interpretation Comments Mean Corpuscular Volume (test code = 787-2) 101.7 81-99 H [facility] SouthMean Corpuscular Qosovcxnqi7885-68-91 06:41:00* Test Item Value Reference Range Interpretation Comments Mean Corpuscular Hemoglobin (test code = 785-6) 30.9 28-32 [facility] SouthMean Corpuscular Hemoglobin Concent 2018-08-31 06:41:00* Test Item Value Reference Range Interpretation Comments Mean Corpuscular Hemoglobin Concent (test code = 786-4) 30.4 31-35 L [facility] SouthRed Cell Distribution Jumwq5180-89-76 06:41:00* Test Item Value Reference Range Interpretation Comments Red Cell Distribution Width (test code = 13115-5) 14.7 11.7 -14.4 H [facility] SouthPlatelet Pdyiu7486-40-20 06:41:00* Test Item Value Reference Range Interpretation Comments Platelet Count (test code = 777-3) 174 140-360 [facility] SouthNeutrophils (%) (Auto)2018-08-31 06:41:00 * Test Item Value Reference Range Interpretation Comments Neutrophils (%) (Auto) (test code = 08467-0) 83.5 38.7-80.0 H [facility] SouthLymphocytes (%) (Auto)2018-08-31 06:41:00 * Test Item Value Reference Range Interpretation Comments Lymphocytes (%) (Auto) (test code = 736-9) 8.9 18.0-39.1 L [facility] SouthMonocytes (%) (Auto)2018-08-31 06:41:00* Test Item Value Reference Range Interpretation Comments Monocytes (%) (Auto) (test code = 5905-5) 4.4 4.4-11.3 [facility] SouthEosinophils (%) (Auto)2018-08-31 06:41:00 * Test Item Value Reference Range Interpretation Comments Eosinophils (%) (Auto) (test code = 713-8) 0.9 0.0-6.0 [facility] SouthBasophils (%) (Auto)2018-08-31 06:41:00* Test Item Value Reference Range Interpretation Comments Basophils (%) (Auto) (test code = 706-2) 0.2 0.0-1.0 [facility] SouthIM GRANULOCYTES %2018-08-31 06:41:00* Test Item Value Reference Range Interpretation Comments IM GRANULOCYTES % (test code = IM GRANULOCYTES %) 2.1 0.0- 1.0 H [facility] SouthNeutrophils # (Auto)2018-08-31 06:41:00* Test Item Value Reference Range Interpretation Comments Neutrophils # (Auto) (test code = 751-8) 16.6 2.1-6.9 H [facility] SouthLymphocytes # (Auto)2018-08-31 06:41:00* Test Item Value Reference Range Interpretation Comments Lymphocytes # (Auto) (test code = 91290-7) 1.8 1.0-3.2 [facility] SouthMonocytes # (Auto)2018-08-31 06:41:00* Test Item Value Reference Range Interpretation Comments Monocytes # (Auto) (test code = 742-7) 0.9 0.2-0.8 H [facility] SouthEosinophils # (Auto)2018-08-31 06:41:00* Test Item Value Reference Range Interpretation Comments Eosinophils # (Auto) (test code = 711-2) 0.2 0.0-0.4 [facility] SouthBasophils # (Auto)2018-08-31 06:41:00* Test Item Value Reference Range Interpretation Comments Basophils # (Auto) (test code = 704-7) 0.0 0.0-0.1 [facility] SouthAbsolute Immature Granulocyte (auto 2018-08-31 06:41:00* Test Item Value Reference Range Interpretation Comments Absolute Immature Granulocyte (auto (shantelle t code = Absolute Immature Granulocyte (auto) 0.42 0-0.1 H [facility] SouthWhite Blood Aahrh5780-84-11 06:41:00* Test Item Value Reference Range Interpretation Comments White Blood Count (test code = 6690-2) 19.89 4.8-10.8 H [facility] SouthRed Blood Hfsqu5971-94-38 06:41:00* Test Item Value Reference Range Interpretation Comments Red Blood Count (test code = 789-8) 2.36 3.6-5.1 L [facility] SouthMean Corpuscular Kccrdb4791-15-57 06:41:00* Test Item Value Reference Range Interpretation Comments Mean Corpuscular Volume (test code = 787-2) 101.7 81-99 H [facility] SouthMean Corpuscular Jriixnkpmm5914-09-84 06:41:00* Test Item Value Reference Range Interpretation Comments Mean Corpuscular Hemoglobin (test code = 785-6) 30.9 28-32 [facility] SouthMean Corpuscular Hemoglobin Concent 2018-08-31 06:41:00* Test Item Value Reference Range Interpretation Comments Mean Corpuscular Hemoglobin Concent (test code = 786-4) 30.4 31-35 L [facility] SouthRed Cell Distribution Nzshv9127-52-65 06:41:00* Test Item Value Reference Range Interpretation Comments Red Cell Distribution Width (test code = 08881-9) 14.7 11.7 -14.4 H [facility] SouthPlatelet Hoapv4698-03-32 06:41:00* Test Item Value Reference Range Interpretation Comments Platelet Count (test code = 777-3) 174 140-360 [facility] SouthNeutrophils (%) (Auto)2018-08-31 06:41:00 * Test Item Value Reference Range Interpretation Comments Neutrophils (%) (Auto) (test code = 46398-2) 83.5 38.7-80.0 H [facility] SouthLymphocytes (%) (Auto)2018-08-31 06:41:00 * Test Item Value Reference Range Interpretation Comments Lymphocytes (%) (Auto) (test code = 736-9) 8.9 18.0-39.1 L [facility] SouthMonocytes (%) (Auto)2018-08-31 06:41:00* Test Item Value Reference Range Interpretation Comments Monocytes (%) (Auto) (test code = 5905-5) 4.4 4.4-11.3 [facility] SouthEosinophils (%) (Auto)2018-08-31 06:41:00 * Test Item Value Reference Range Interpretation Comments Eosinophils (%) (Auto) (test code = 713-8) 0.9 0.0-6.0 [facility] SouthBasophils (%) (Auto)2018-08-31 06:41:00* Test Item Value Reference Range Interpretation Comments Basophils (%) (Auto) (test code = 706-2) 0.2 0.0-1.0 [facility] SouthIM GRANULOCYTES %2018-08-31 06:41:00* Test Item Value Reference Range Interpretation Comments IM GRANULOCYTES % (test code = IM GRANULOCYTES %) 2.1 0.0- 1.0 H [facility] SouthNeutrophils # (Auto)2018-08-31 06:41:00* Test Item Value Reference Range Interpretation Comments Neutrophils # (Auto) (test code = 751-8) 16.6 2.1-6.9 H [facility] SouthLymphocytes # (Auto)2018-08-31 06:41:00* Test Item Value Reference Range Interpretation Comments Lymphocytes # (Auto) (test code = 13160-8) 1.8 1.0-3.2 [facility] SouthMonocytes # (Auto)2018-08-31 06:41:00* Test Item Value Reference Range Interpretation Comments Monocytes # (Auto) (test code = 742-7) 0.9 0.2-0.8 H [facility] SouthEosinophils # (Auto)2018-08-31 06:41:00* Test Item Value Reference Range Interpretation Comments Eosinophils # (Auto) (test code = 711-2) 0.2 0.0-0.4 [facility] SouthBasophils # (Auto)2018-08-31 06:41:00* Test Item Value Reference Range Interpretation Comments Basophils # (Auto) (test code = 704-7) 0.0 0.0-0.1 [facility] SouthAbsolute Immature Granulocyte (auto 2018-08-31 06:41:00* Test Item Value Reference Range Interpretation Comments Absolute Immature Granulocyte (auto (shantelle t code = Absolute Immature Granulocyte (auto) 0.42 0-0.1 H [facility] SouthRanjohn [facility]. [facility] Vancomycin Huckg0656-20-92 04:58:00* Test Item Value Reference Range Interpretation Comments Random Vancomycin Level (test code = 25673-7) 14.5 [facility] Vancomycin Nypwr2220-62-61 04:58:00* Test Item Value Reference Range Interpretation Comments Random Vancomycin Level (test code = 86749-1) 14.5 [facility] SouthRanjohn j. [facility] Vancomycin Evjuv0909-91-74 04:58:00* Test Item Value Reference Range Interpretation Comments Random Vancomycin Level (test code = 32637-9) 14.5 [facility] SouthDRN ABD FLUID/ABSC W QVZK-ML0682-31-19 16:02:00 [place] [address] Patient Name: DUKE AUGUSTINE MR #: [id number] : 1945 Age/Sex: 73/F Req #: [id number] Adm Physician: ALONDRA MOREIRA MD Ordered by: BALDOMERO WELSH MD Report #: [id number] Location: ICU Room/Bed: ICU [facility] Procedure: [id number] C T/DRLuis ABD FLUID/ABSC W CATH-CT Exam Date: Exam Time : REPORT STATUS: Signed Date an d Time: 08/30/2018 Procedure: CT-guided percutaneous drainage of right lower quadrant fluid collection pulpit operator: Dr. Oneal Pre-operative diagnosis: Right lower quadrant fluid collection Post-operative diagnosis: Ri ght lower quadrant fluid collection Conscious Sedation: Versed 0 mg and Fen tanyl 50 mcg. The patient's heart rate and pulse oximetry were continuously mo nitored by the interventional radiology nurse. Blood pressure was monitored a t 5 minute intervals. Additional Medications: Lidocaine 1% for local anes thesia Complications: No immediate Estimated blood loss: Minimal Blood pro ducts administered: None Specimens: 20 cc serosanguineous fluid Implants: 10 Somali locking loop drainage catheter Condition at completion: Guarded Disp osition: ICU DISCUSSION: Informed consent was obtained from the next o f kin/medical decision maker and documented in the medical record after discus felicity of risks and benefits. The patient was placed in the supine position o n the CT couch. A marker grid was placed over the right lower quadrant of the abdomen. Limited CT of the low abdomen confirmed presence of a right lower gabrielle drant fluid collection and a suitable percutaneous approach was identified. Th e overlying skin was marked then prepped and draped in the standard sterile fa shion. 1% lidocaine was infiltrated into the skin and subcutaneous tissues for local anesthesia. Then under intermittent CT guidance an 18-gauge, 10 cm n eedle was advanced into the fluid collection, with return of serosanguineous f luid. A 0.0 3 5-in. wire was advanced through the needle and coiled within the collection. The needle was removed over the wire, the tract was serially dila patel, then a 10 Somali locking loop drainage catheter was advanced over the wir e, which was then removed. The locking loop was positioned within the central aspect of the fluid collection, with appropriate positioning confirmed by limi patel low abdominal CT. 20 cc of serosanguineous aspirate were obtained and s ubmitted for Gram stain, aerobic and anaerobic culture. The catheter was secur ed to the skin with monofilament nylon suture and connected to gravity drainag e. A sterile dressing was applied. The patient tolerated the procedure well wi thout immediate complication. FINDINGS: Right lower quadrant fluid collection. IMPRESSION: Successful CT-guided percutaneous drainage of a right lower quadrant fluid collection without immediate complication. T he catheter should remain to gravity drainage, and should be flushed and aspir ated with 5 cc sterile saline every 8 hours. Orders to this effect were placed in the medical record. Signed by: Dr. Baldomero Oneal M.D. on 08/30/2018 4:07 PM Dictated By: BALDOMERO ONEAL MD 06 Transcribed By: JEANETTE on 08/30/181606 COPY TO: BALDOMERO WELSH MD IR [id number] 16:02:00 [place] [address] Patient Name: DUKE AUGUSTINE MR #: [id number] : 1945 Age/Sex: 73/F Req #: [id number] Adm Physician: ALONDRA MOREIRA MD Ordered by: BALDOMERO WELSH MD Report #: [id number] Location: ICU Room/Bed: ICU [facility] Procedure: [id number] D X/IR CONSULT Exam Date: Exam Time: REPORT STATUS: Signed Date and Time: 08/30/2018 Procedure: CT-guided percutaneous drainage of right lower quadrant fluid collection pulpit operator: Dr. Oneal Pre-operative diagnosis: Right lower quadrant fluid collection Post-operative diagnosis: Right lower quadrant fluid collection Conscious Sedation: Versed 0 mg and Fentanyl 50 mcg. Th e patient's heart rate and pulse oximetry were continuously [facility]. Blood pressure was monitored at 5 minute inter vals. Additional Medications: Lidocaine 1% for local anesthesia Complicat ions: No immediate Estimated blood loss: Minimal Blood products administered : None Specimens: 20 cc serosanguineous fluid Implants: 10 Somali locking lo op drainage catheter Condition at completion: Guarded Disposition: ICU DISCUSSION: Informed consent was obtained from the next of kin/medical deci felicity maker and documented in the medical record after discussion of risks and benefits. The patient was placed in the supine position on the CT couch. A marker grid was placed over the right lower quadrant of the abdomen. Limited C T of the low abdomen confirmed presence of a right lower quadrant fluid collec tion and a suitable percutaneous approach was identified. The overlying skin w as marked then prepped and draped in the standard sterile fashion. 1% lidocain e was infiltrated into the skin and subcutaneous tissues for local anesthesia. Then under intermittent CT guidance an 18-gauge, 10 cm needle was advanced into the fluid collection, with return of serosanguineous fluid. A 0.0 3 5-in . wire was advanced through the needle and coiled within the collection. The n eedle was removed over the wire, the tract was serially dilated, then a 10 Jl nch locking loop drainage catheter was advanced over the wire, which was then removed. The locking loop was positioned within the central aspect of the flui d collection, with appropriate positioning confirmed by limited low abdominal CT. 20 cc of serosanguineous aspirate were obtained and submitted for Gram stain, aerobic and anaerobic culture. The catheter was secured to the skin wit h monofilament nylon suture and connected to gravity drainage. A sterile dress ing was applied. The patient tolerated the procedure well without immediate complication. FINDINGS: Right lower quadrant fluid collection. IMPRESSION: Successful CT-guided percutaneous drainage of a right lower quad rant fluid collection without immediate complication. The catheter should remain to gravity drainage, and should be flushed and aspirated with 5 cc ashia rile saline every 8 hours. Orders to this effect were placed in the medical re cord. Signed by: Dr. Baldomero Oneal M.D. on 08/30/2018 4:07 PM Di ctated By: BALDOMERO ONEAL MD 06 COPY TO: BALDOMERO WELSH MD Differential Total Cells Uxybkrc0258-22-36 06:08:00* Test Item Value Reference Range Interpretation Comments Differential Total Cells Counted (test code = Adelina rendon Total Cells Counted) 100 [facility] SouthNeutrophils % (Manual)2018-08-30 06:08:00 * Test Item Value Reference Range Interpretation Comments Neutrophils % (Manual) (test code = 30326-7) 87 40-74 H [facility] SouthLymphocytes % (Manual)2018-08-30 06:08:00 * Test Item Value Reference Range Interpretation Comments Lymphocytes % (Manual) (test code = 737-7) 6 19-48 L [facility] SouthMonocytes % (Manual)2018-08-30 06:08:00* Test Item Value Reference Range Interpretation Comments Monocytes % (Manual) (test code = 744-3) 6 3.4-9.0 [facility] SouthEosinophils % (Manual)2018-08-30 06:08:00 * Test Item Value Reference Range Interpretation Comments Eosinophils % (Manual) (test code = 714-6) 1 0-7 [facility] SouthPlatelet Lvbwutrx2761-07-38 06:08:00* Test Item Value Reference Range Interpretation Comments Platelet Estimate (test code = 55418-9) ADEQUATE [facility] SouthPlatelet Morphology Mfuhzfk6216-43-54 06:08:00* Test Item Value Reference Range Interpretation Comments Platelet Morphology Comment (test code = 54869-0) NORMAL [facility] SouthHypochromasia2019-03-19 06:08:00* Test Item Value Reference Range Interpretation Comments Hypochromasia (test code = 728-6) MODERATE [facility] SouthAnisocytosis2019-03-19 06:08:00* Test Item Value Reference Range Interpretation Comments Anisocytosis (test code = 702-1) MODERATE [facility] SouthMacrocytosis2019-03-19 06:08:00* Test Item Value Reference Range Interpretation Comments Macrocytosis (test code = 738-5) SLIGHT [facility] SouthToxic Rsedsjzugvx9296-80-63 06:08:00* Test Item Value Reference Range Interpretation Comments Toxic Granulation (test code = 803-7) SLIGHT [facility] SouthRed Cell Morphology Brrqumn9071-61-68 06:08:00* Test Item Value Reference Range Interpretation Comments Red Cell Morphology Comment (test code = 6742-1) ABNORMAL [facility] SouthDifferential Total Cells Counted 2018-08-30 06:08:00* Test Item Value Reference Range Interpretation Comments Differential Total Cells Counted (test code = Differen tial Total Cells Counted) 100 [facility] SouthNeutrophils % (Manual)2018-08-30 06:08:00 * Test Item Value Reference Range Interpretation Comments Neutrophils % (Manual) (test code = 93483-6) 87 40-74 H [facility] SouthLymphocytes % (Manual)2018-08-30 06:08:00 * Test Item Value Reference Range Interpretation Comments Lymphocytes % (Manual) (test code = 737-7) 6 19-48 L [facility] SouthMonocytes % (Manual)2018-08-30 06:08:00* Test Item Value Reference Range Interpretation Comments Monocytes % (Manual) (test code = 744-3) 6 3.4-9.0 [facility] SouthEosinophils % (Manual)2018-08-30 06:08:00 * Test Item Value Reference Range Interpretation Comments Eosinophils % (Manual) (test code = 714-6) 1 0-7 [facility] SouthPlatelet Hjysqzgy9150-46-23 06:08:00* Test Item Value Reference Range Interpretation Comments Platelet Estimate (test code = 81711-2) ADEQUATE [facility] SouthPlatelet Morphology Peviprb0805-95-46 06:08:00* Test Item Value Reference Range Interpretation Comments Platelet Morphology Comment (test code = 92832-4) NORMAL [facility] SouthHypochromasia2019-03-19 06:08:00* Test Item Value Reference Range Interpretation Comments Hypochromasia (test code = 728-6) MODERATE [facility] SouthAnisocytosis2019-03-19 06:08:00* Test Item Value Reference Range Interpretation Comments Anisocytosis (test code = 702-1) MODERATE [facility] SouthMacrocytosis2019-03-19 06:08:00* Test Item Value Reference Range Interpretation Comments Macrocytosis (test code = 738-5) SLIGHT [facility] SouthToxic Yzkfdjulpdj5267-94-47 06:08:00* Test Item Value Reference Range Interpretation Comments Toxic Granulation (test code = 803-7) SLIGHT [facility] SouthRed Cell Morphology Uonjmdd1490-63-38 06:08:00* Test Item Value Reference Range Interpretation Comments Red Cell Morphology Comment (test code = 6742-1) ABNORMAL [facility] SouthDifferential Total Cells Counted 2018-08-30 06:08:00* Test Item Value Reference Range Interpretation Comments Differential Total Cells Counted (test code = Differarvin tial Total Cells Counted) 100 [facility] SouthNeutrophils % (Manual)2018-08-30 06:08:00 * Test Item Value Reference Range Interpretation Comments Neutrophils % (Manual) (test code = 16347-1) 87 40-74 H [facility] SouthLymphocytes % (Manual)2018-08-30 06:08:00 * Test Item Value Reference Range Interpretation Comments Lymphocytes % (Manual) (test code = 737-7) 6 19-48 L [facility] SouthMonocytes % (Manual)2018-08-30 06:08:00* Test Item Value Reference Range Interpretation Comments Monocytes % (Manual) (test code = 744-3) 6 3.4-9.0 [facility] SouthEosinophils % (Manual)2018-08-30 06:08:00 * Test Item Value Reference Range Interpretation Comments Eosinophils % (Manual) (test code = 714-6) 1 0-7 [facility] SouthPlatelet Gxresztq1517-57-84 06:08:00* Test Item Value Reference Range Interpretation Comments Platelet Estimate (test code = 48725-9) ADEQUATE [facility] SouthPlatelet Morphology Huwnehy2532-96-22 06:08:00* Test Item Value Reference Range Interpretation Comments Platelet Morphology Comment (test code = 01857-3) NORMAL [facility] SouthHypochromasia2019-03-19 06:08:00* Test Item Value Reference Range Interpretation Comments Hypochromasia (test code = 728-6) MODERATE [facility] SouthAnisocytosis2019-03-19 06:08:00* Test Item Value Reference Range Interpretation Comments Anisocytosis (test code = 702-1) MODERATE [facility] SouthMacrocytosis2019-03-19 06:08:00* Test Item Value Reference Range Interpretation Comments Macrocytosis (test code = 738-5) SLIGHT [facility] SouthToxic Oxlpwtmplln5701-48-12 06:08:00* Test Item Value Reference Range Interpretation Comments Toxic Granulation (test code = 803-7) SLIGHT [facility] SouthRed Cell Morphology Frgksfq6542-67-66 06:08:00* Test Item Value Reference Range Interpretation Comments Red Cell Morphology Comment (test code = 6742-1) ABNORMAL [facility] SouthRad Plasma Xdfply2598-83-30 05:13:00* Test Item Value Reference Range Interpretation Comments Rapid Plasma Reagin (test code = 60748-3) Non Reactive Non Reactive Performed at: [address] [id number] Director: Irvin Mayorga MD, Phone: [phone] Vista Medical Center Plasma Vyzrly6642-34-34 05:13:00* Test Item Value Reference Range Interpretation Comments Rapid Plasma Reagin (test code = 14444-5) Non Reactive Non Reactive Performed at: [address] [id number] Director: Irvin Mayorga MD, Phone: [phone] Vista Medical Center Plasma Cdbpup4213-15-13 05:13:00* Test Item Value Reference Range Interpretation Comments Rapid Plasma Reagin (test code = 71622-8) Non Reactive Non Reactive Performed at: [address] [id number] Director: Irvin Mayorga MD, Phone: [phone] Health Huguley Hospital [facility] SouthABDOMEN-1VIEW (KUB)2018-08-29 13:28:00 [facility] [address] [place] [address] Patient Name: DUKE AUGUSTINE MR #: [id number] : 1945 Age/Sex: 73/F Req #: [id number] Adm Physician: ALONDRA MOREIRA MD Ordered by: ALONDRA MOREIRA MD Report #: [id number] Location: ICU Room/Bed: ICU [facility] Procedure: [id number] DX/ABDOMEN-1VIEW (KUB) Exam Date: 08/29/18 Exam Jhonatan e: 1050 REPORT STATUS: Signed Ab domen, 2 views dated 08/29/2018 at 11:06 AM. History: Possible obstruction. Findings: Exam is degraded by patient motion. The intestinal gas valentina ria is nonobstructive. Residual contrast within portions of the right colon. G astric lap band reservoir and tubing noted. NG tube extends below the diaphrag m. There is a left femoral large-bore central line. Skin chinmay overlie the p verónica. There no masses or abnormal calcifications. The osseous structures reve al degenerative changes. IMPRESSION: No evidence to suggest bowel obst ruction. Signed by: Dr. Piero Quintana DO on 08/29/2018 1:31 PM Dicta patel By: PIERO QUINTANA DO 1331 Transcribed By: JEANETTE on 08/29/18 1331 COPY TO: ALONDRA MOREIRA MD Esxwyv9854-49-72 06:45:00* Test Item Value Reference Range Interpretation Comments Folate (test code = 2284-8) >19.9 >3.0 A serum folate concentration of less than 3.1 ng/mL isconsidered to represent cl inical deficiency.Performed at: [address] [id number] Director: Irvin Mayorga MD, Phone: [phone] Health [facility] SouthC-Reactive Bjqtbee4939-64-71 06:45:00* Test Item Value Reference Range Interpretation Comments C-Reactive Protein (test code = 1987-5) 40.8 0.0-4.9 H Performed at: [address] [id number] Director: Irvin Mayorga MD, Phone: [phone] Health Hug[facility] SouthFolate2019-03-18 06:45:00* Test Item Value Reference Range Interpretation Comments Folate (test code = 2284-8) >19.9 >3.0 A serum folate concentration of less than 3.1 ng/mL isconsidered to represent cl inical deficiency.Performed at: [address] [id number] Director: Irvin Mayorga MD, Phone: [phone] Health Hug[facility] SouthC-Reactive Pupjwoo7878-39-97 06:45:00* Test Item Value Reference Range Interpretation Comments C-Reactive Protein (test code = 1987-5) 40.8 0.0-4.9 H Performed at: [address] [id number] Director: Irvin Mayorga MD, Phone: [phone] 06:45:00* Test Item Value Reference Range Interpretation Comments Folate (test code = 2284-8) >19.9 >3.0 A serum folate concentration of less than 3.1 ng/mL isconsidered to represent cl inical deficiency.Performed at: [address] [id number] Director: Irvin Mayorga MD, Phone: [phone] Health [facility] SouthC-Reactive Khgxlzy9960-64-94 06:45:00* Test Item Value Reference Range Interpretation Comments C-Reactive Protein (test code = 1988-5) 40.8 0.0-4.9 H Performed at: HD - [facility] [address] [id number] Director: Irvin Mayorga MD, Phone: [phone] [facility]2018-[facility]28 06:27:00 [facility] [address] [address] Patient Name: DUKE AUGUSTINE MR #: [id number] : 1945 Age/Sex: 73/F Req #: [id number] Adm Physician: ALONDRA MOREIRA MD Ordered by: JORGE MARX MD Report #: [id number] Location: ICU Room/Bed: ICU [facility] Procedure: [id number] DX/CHEST SINGLE (PORTABLE) Exam Date: 08/28/18 Exam Time: 0555 REPORT STATUS: Signed EXAMINATION: CHEST SINGLE (PORTABLE) INDICATION: Pneumonia. COMP ARISON: 08/27/2018. FINDINGS: AP view TUBES and LINES: Left-s ided cardiac pacemaker, unchanged. NG/J-tube in place with tip extending below the diaphragm however, outside the dkzfu-qw-wcgo. LUNGS: Mildly elevated right hemidiaphragm. Mild pulmonary venous congestion again observed. Small no dular densities scattered throughout the left lung, unchanged. Left basila r subsegmental atelectasis. PLEURA: No visible pneumothorax. Trace right p leural effusion. HEART AND MEDIASTINUM: The cardiomediastinal silhouette i s enlarged on this AP view. Median sternotomy wires. Prominence of the pulmona ry hilum bilaterally, left greater than right may represent enlarged pulmonary arteries. BONES AND SOFT TISSUES: No acute osseous lesion. Soft tissues are unremarkable. UPPER ABDOMEN: No free air under the diaphragm. IMPRESSION: No significant interval change. Mild pulmonary venous congestio n. Signed by: Dr. Virgen Webster M.D. on 08/28/2018 6:30 AM Di ctated By: BOOKER WEBSTER MD, MD 9 Transcribed By: JEANETTE on 08/28/18629 COPY TO: JORGE ELDER MD B-Type Natriuretic Jeogjtu7194-72-86 05:30:00* Test Item Value Reference Range Interpretation Comments B-Type Natriuretic Peptide (test code = 73640-3) 322.6 0-100 H [facility] Nat[facility] Bjihved9402-56-32 05:30:00* Test Item Value Reference Range Interpretation Comments B-Type Natriuretic Peptide (test code = 39485-8) 322.6 0-100 H [facility] Natriuretic Qxteann2003-64-72 05:30:00* Test Item Value Reference Range Interpretation Comments B-Type Natriuretic Peptide (test code = 75001-4) 322.6 0-100 H [facility] South[facility] NDM0695-25-97 18:02:00* Test Item Value Reference Range Interpretation Comments Urine WBC (test code = 5821-4) 11-20 0-5 H [facility] OFD3135-62-68 18:02:00* Test Item Value Reference Range Interpretation Comments Urine RBC (test code = 61979-2) 6-10 0-5 H [facility] Tofvgkwu4893-40-14 18:02:00* Test Item Value Reference Range Interpretation Comments Urine Bacteria (test code = 13181-1) MODERATE NONE H [facility] Epithelial Eqvlf2263-36-71 18:02:00 * Test Item Value Reference Range Interpretation Comments Urine Epithelial Cells (test code = 69647-6) FEW NONE [facility] Amorphous Wwwhlfal4887-94-62 18:02:00* Test Item Value Reference Range Interpretation Comments Urine Amorphous Sediment (test code = 8246-1) FEW FEW [facility] South[facility] Coarse Granular Vkxmz4297-86-26 18:02:00* Test Item Value Reference Range Interpretation Comments Urine Coarse Granular Casts (test code = 54192-3) 1-5 >0 H [facility] Klolp2400-87-99 18:02:00* Test Item Value Reference Range Interpretation Comments Urine Mucus (test code = 8247-9) FEW RARE H [facility] Ziejj5180-03-02 18:02:00* Test Item Value Reference Range Interpretation Comments Urine Yeast (test code = 23569-9) MODERATE NONE H [facility] VRG5186-54-74 18:02:00* Test Item Value Reference Range Interpretation Comments Urine WBC (test code = 5821-4) 11-20 0-5 H [facility] YMI8055-46-98 18:02:00* Test Item Value Reference Range Interpretation Comments Urine RBC (test code = 83625-3) 6-10 0-5 H [facility] Xexqvkxo9281-39-48 18:02:00* Test Item Value Reference Range Interpretation Comments Urine Bacteria (test code = 82220-1) MODERATE NONE H [facility] Epithelial Lfath4700-95-32 18:02:00 * Test Item Value Reference Range Interpretation Comments Urine Epithelial Cells (test code = 81365-0) FEW NONE [facility] Amorphous Lkzlmwnn2322-50-10 18:02:00* Test Item Value Reference Range Interpretation Comments Urine Amorphous Sediment (test code = 8246-1) FEW FEW [facility] Coarse Granular Paupn8995-71-90 18:02:00* Test Item Value Reference Range Interpretation Comments Urine Coarse Granular Casts (test code = 20277-1) 1-5 >0 H [facility] Xioth6106-82-11 18:02:00* Test Item Value Reference Range Interpretation Comments Urine Mucus (test code = 8247-9) FEW RARE H [facility] Krllg2440-07-15 18:02:00* Test Item Value Reference Range Interpretation Comments Urine Yeast (test code = 51221-2) MODERATE NONE H [facility] FQK6845-66-58 18:02:00* Test Item Value Reference Range Interpretation Comments Urine WBC (test code = 5821-4) 11-20 0-5 H [facility] WFQ6085-93-49 18:02:00* Test Item Value Reference Range Interpretation Comments Urine RBC (test code = 11432-7) 6-10 0-5 H [facility] Hftnxtqp9308-56-12 18:02:00* Test Item Value Reference Range Interpretation Comments Urine Bacteria (test code = 13609-9) MODERATE NONE H [facility] Epithelial Gndbl0050-54-79 18:02:00 * Test Item Value Reference Range Interpretation Comments Urine Epithelial Cells (test code = 73551-9) FEW NONE [facility] Amorphous Ravsgbkr1072-96-21 18:02:00* Test Item Value Reference Range Interpretation Comments Urine Amorphous Sediment (test code = 8246-1) FEW FEW [facility] Coarse Granular Ydsst5922-36-45 18:02:00* Test Item Value Reference Range Interpretation Comments Urine Coarse Granular Casts (test code = 48234-9) 1-5 >0 H [facility] Hrlub7472-94-13 18:02:00* Test Item Value Reference Range Interpretation Comments Urine Mucus (test code = 8247-9) FEW RARE H [facility] Sewee4353-56-59 18:02:00* Test Item Value Reference Range Interpretation Comments Urine Yeast (test code = 68351-5) MODERATE NONE H [facility] Uqtws2242-33-42 17:53:00* Test Item Value Reference Range Interpretation Comments Urine Color (test code = 5778-6) YELLOW YELLOW [facility] Jvlomrc1389-34-64 17:53:00* Test Item Value Reference Range Interpretation Comments Urine Clarity (test code = 13766-2) HAZY CLEAR [facility] Specific Ubuxrjj4406-46-66 17:53:00 * Test Item Value Reference Range Interpretation Comments Urine Specific [place] (test code = 5811-5) 1.010 1.010-1.02 5 [facility] rY1322-63-09 17:53:00* Test Item Value Reference Range Interpretation Comments Urine pH (test code = 57387-4) 5 5-7 [facility] Leukocyte Wowwfwyv5559-70-29 17:53:00* Test Item Value Reference Range Interpretation Comments Urine Leukocyte Esterase (test code = 5799-2) 1+ NEGATIVE H [facility] Hguxmgm3159-75-53 17:53:00* Test Item Value Reference Range Interpretation Comments Urine Nitrite (test code = 57724-1) NEGATIVE NEGATIVE [facility] Efiamob1406-97-63 17:53:00* Test Item Value Reference Range Interpretation Comments Urine Protein (test code = 5804-0) 2+ NEGATIVE H [facility] Glucose (UA)2018-08-27 17:53:00* Test Item Value Reference Range Interpretation Comments Urine Glucose (UA) (test code = 2349-9) 2+ NEGATIVE H [facility] Ykkqffj3660-34-93 17:53:00* Test Item Value Reference Range Interpretation Comments Urine Ketones (test code = 25432-5) NEGATIVE NEGATIVE [facility] Cofospubdawf1691-54-36 17:53:00* Test Item Value Reference Range Interpretation Comments Urine Urobilinogen (test code = 16095-6) 0.2 0.2-1 [facility] Ptkdvgfxm9038-38-77 17:53:00* Test Item Value Reference Range Interpretation Comments Urine Bilirubin (test code = 1978-6) NEGATIVE NEGATIVE [facility] Hyoru3173-60-76 17:53:00* Test Item Value Reference Range Interpretation Comments Urine Blood (test code = 27373-7) TRACE NEGATIVE H [facility] Ybpxb6339-77-14 17:53:00* Test Item Value Reference Range Interpretation Comments Urine Color (test code = 5778-6) YELLOW YELLOW [facility] Hmuurfv5969-03-25 17:53:00* Test Item Value Reference Range Interpretation Comments Urine Clarity (test code = 64672-0) HAZY CLEAR [facility] Specific Shsmkwc0798-23-79 17:53:00 * Test Item Value Reference Range Interpretation Comments Urine Specific [place] (test code = 5811-5) 1.010 1.010-1.02 5 [facility] aM1552-39-52 17:53:00* Test Item Value Reference Range Interpretation Comments Urine pH (test code = 58398-6) 5 5-7 [facility] Leukocyte Nwnfatso8599-23-61 17:53:00* Test Item Value Reference Range Interpretation Comments Urine Leukocyte Esterase (test code = 5799-2) 1+ NEGATIVE H [facility] Dtqtpxy0490-60-63 17:53:00* Test Item Value Reference Range Interpretation Comments Urine Nitrite (test code = 25381-5) NEGATIVE NEGATIVE [facility] Sjqdqcb1310-14-61 17:53:00* Test Item Value Reference Range Interpretation Comments Urine Protein (test code = 5804-0) 2+ NEGATIVE H [facility] Glucose (UA)2018-08-27 17:53:00* Test Item Value Reference Range Interpretation Comments Urine Glucose (UA) (test code = 2349-9) 2+ NEGATIVE H [facility] Izoznlw7818-61-35 17:53:00* Test Item Value Reference Range Interpretation Comments Urine Ketones (test code = 69189-1) NEGATIVE NEGATIVE [facility] Zfoohfioxfxo4906-56-99 17:53:00* Test Item Value Reference Range Interpretation Comments Urine Urobilinogen (test code = 25778-1) 0.2 0.2-1 [facility] Lhgdpoggp5122-18-08 17:53:00* Test Item Value Reference Range Interpretation Comments Urine Bilirubin (test code = 1978-6) NEGATIVE NEGATIVE [facility] Wlmiv0961-17-33 17:53:00* Test Item Value Reference Range Interpretation Comments Urine Blood (test code = 30920-6) TRACE NEGATIVE H [facility] Yusdj4173-34-18 17:53:00* Test Item Value Reference Range Interpretation Comments Urine Color (test code = 5778-6) YELLOW YELLOW [facility] Mnkvrlb0676-61-08 17:53:00* Test Item Value Reference Range Interpretation Comments Urine Clarity (test code = 07011-8) HAZY CLEAR [facility] Specific Exgyhnf7189-50-48 17:53:00 * Test Item Value Reference Range Interpretation Comments Urine Specific [place] (test code = 5811-5) 1.010 1.010-1.02 5 [facility] nH9725-33-44 17:53:00* Test Item Value Reference Range Interpretation Comments Urine pH (test code = 66558-4) 5 5-7 [facility] Leukocyte Frosvsgl2796-50-74 17:53:00* Test Item Value Reference Range Interpretation Comments Urine Leukocyte Esterase (test code = 5799-2) 1+ NEGATIVE H [facility] Gjmoufm7661-12-25 17:53:00* Test Item Value Reference Range Interpretation Comments Urine Nitrite (test code = 60501-4) NEGATIVE NEGATIVE [facility] Wtcewar5285-55-92 17:53:00* Test Item Value Reference Range Interpretation Comments Urine Protein (test code = 5804-0) 2+ NEGATIVE H [facility] Glucose (UA)2018-08-27 17:53:00* Test Item Value Reference Range Interpretation Comments Urine Glucose (UA) (test code = 2349-9) 2+ NEGATIVE H [facility] Shiyxel6211-38-52 17:53:00* Test Item Value Reference Range Interpretation Comments Urine Ketones (test code = 62826-5) NEGATIVE NEGATIVE [facility] Vttamkmcljyj1111-69-40 17:53:00* Test Item Value Reference Range Interpretation Comments Urine Urobilinogen (test code = 31875-7) 0.2 0.2-1 [facility] Mzfvvpeie0811-42-49 17:53:00* Test Item Value Reference Range Interpretation Comments Urine Bilirubin (test code = 1978-6) NEGATIVE NEGATIVE [facility] Uiakl2976-41-19 17:53:00* Test Item Value Reference Range Interpretation Comments Urine Blood (test code = 21835-0) TRACE NEGATIVE H [facility] Thyroxine Vukde5501-02-68 14:28:00* Test Item Value Reference Range Interpretation Comments Free Thyroxine Index (test code = 38155-2) 1.9540 1.4-3.8 [facility] South[facility]yroxine (T4)2018-08-27 14:28:00* Test Item Value Reference Range Interpretation Comments Thyroxine (T4) (test code = 3026-2) 4.82 4.5-10.9 Our current method for Total T4 is not recommended for use as the only marker fo r evaluating patients for thyroid disorders.[facility] SouthTriiodothyronine (T3) Bzlppu5682-76-39 14:28:00* Test Item Value Reference Range Interpretation Comments Triiodothyronine (T3) Uptake (test code = 3050-2) 40.54 22.5 -37.0 H [facility] Thyroxine Asyxj4591-28-67 14:28:00* Test Item Value Reference Range Interpretation Comments Free Thyroxine Index (test code = 33334-8) 1.9540 1.4-3.8 [facility]ine (T4)2018-08-27 14:28:00* Test Item Value Reference Range Interpretation Comments Thyroxine (T4) (test code = 3026-2) 4.82 4.5-10.9 Our current method for Total T4 is not recommended for use as the only marker fo r evaluating patients for thyroid disorders.[facility] SouthTriiodothyronine (T3) Vujuuy7947-25-83 14:28:00* Test Item Value Reference Range Interpretation Comments Triiodothyronine (T3) Uptake (test code = 3050-2) 40.54 22.5 -37.0 H [facility] Thyroxine Smctn5396-30-27 14:28:00* Test Item Value Reference Range Interpretation Comments Free Thyroxine Index (test code = 18292-4) 1.9540 1.4-3.8 [facility]ine (T4)2018-08-27 14:28:00* Test Item Value Reference Range Interpretation Comments Thyroxine (T4) (test code = 3026-2) 4.82 4.5-10.9 Our current method for Total T4 is not recommended for use as the only marker fo r evaluating patients for thyroid disorders.[facility] SouthTriiodothyronine (T3) Suvqbm5312-39-27 14:28:00* Test Item Value Reference Range Interpretation Comments Triiodothyronine (T3) Uptake (test code = 3050-2) 40.54 22.5 -37.0 H [facility] SouthVitamin B12 Nktpn3292-86-52 14:27:00* Test Item Value Reference Range Interpretation Comments Vitamin B12 Level (test code = 52654-3) 1557 213-816 H [facility] South[facility]it[facility] B12 Hepsm7380-85-01 14:27:00* Test Item Value Reference Range Interpretation Comments Vitamin B12 Level (test code = 72041-0) 1557 213-816 H [facility] South[facility] B12 Jvtkv1425-97-39 14:27:00* Test Item Value Reference Range Interpretation Comments Vitamin B12 Level (test code = 02590-3) 1557 213-816 H [facility] SouthErythrocyte Sedimentation Hxky8118-49-58 14:18:00* Test Item Value Reference Range Interpretation Comments Erythrocyte Sedimentation Rate (test code = 4537-7) 72 0- 20 H [facility] SouthErythrocyte Sedimentation Cezx8816-81-69 14:18:00* Test Item Value Reference Range Interpretation Comments Erythrocyte Sedimentation Rate (test code = 4537-7) 72 0- 20 H [facility] SouthErythrocyte Sedimentation Jiwi4300-38-45 14:18:00* Test Item Value Reference Range Interpretation Comments Erythrocyte Sedimentation Rate (test code = 4537-7) 72 0- 20 H [facility] SouthAmmonia2019-03-16 13:56:00* Test Item Value Reference Range Interpretation Comments Ammonia (test code = 09496-2) 43 31-123 [facility]2019-03-16 13:56:00* Test Item Value Reference Range Interpretation Comments Ammonia (test code = 54011-8) 43 31-123 [facility]2019-03-16 13:56:00* Test Item Value Reference Range Interpretation Comments Ammonia (test code = 88357-5) 43 31-123 [facility] Hjdyglhqjkt3498-22-16 07:52:00* Test Item Value Reference Range Interpretation Comments Reactive Lymphocytes (test code = 23245-4) 1 [facility] SouthPoikilocytosis2019-03-16 07:52:00* Test Item Value Reference Range Interpretation Comments Poikilocytosis (test code = 779-9) SLIGHT [facility] Ehxmd3168-18-09 07:52:00* Test Item Value Reference Range Interpretation Comments Target Cells (test code = 35599-7) FEW [facility] Sfftuegpsnu0499-14-84 07:52:00* Test Item Value Reference Range Interpretation Comments Reactive Lymphocytes (test code = 54148-0) 1 [facility] SouthPoikilocytosis2019-03-16 07:52:00* Test Item Value Reference Range Interpretation Comments Poikilocytosis (test code = 779-9) SLIGHT [facility]2019-03-16 07:52:00* Test Item Value Reference Range Interpretation Comments Target Cells (test code = 06555-8) FEW [facility] Qpwtlerfahb5058-22-29 07:52:00* Test Item Value Reference Range Interpretation Comments Reactive Lymphocytes (test code = 88556-2) 1 [facility] 07:52[facility]00* Test Item Value Reference Range Interpretation Comments Poikilocytosis (test code = 779-9) SLIGHT [facility]2019-03-16 07:52:00* Test Item Value Reference Range Interpretation Comments Target Cells (test code = 91130-3) FEW [facility]2018-08-27 07:42:00 [facility] [address] [address] Patient Name: DUKE AUGUSTINE MR #: [id number] : 1945 Age/Sex: 73/F Req #: [id number] Adm Physician: ALONDRA MOREIRA MD Ordered by: RUDDY HALL Report #: [id number] Location: ICU Room/Bed: ICU [facility] Procedure: [id number] DX/CHEST SINGLE (PORTABLE) Exam Date: 08/27/18 Ex am Time: 0700 REPORT STATUS: Signed EXAMINATION: CHEST SINGLE (PORTABLE) INDICATION: fever [id number] 0700 Y COMPARISON: Abdominal x-ray 08/26/2018 FIN DINGS: AP view TUBES and LINES: Left chest wall cardiac device in plac e. NG/J-tube in place with tip extending outside the skpgb-ss-ster. LUNGS : Mildly elevated right hemidiaphragm. Pulmonary vascular congestion and susp ected mild interstitial edema. PLEURA: No visible pneumothorax. Trace right pleural effusion. HEART AND MEDIASTINUM: The cardiomediastina l silhouette is enlarged on this AP view. Median sternotomy wires BONES A ND SOFT TISSUES: No acute osseous lesion. Soft tissues are unremarkable. UPPER ABDOMEN: No free air under the diaphragm. IMPRESSION: Pulmon saira vascular congestion and suspected mild interstitial edema. Trace right ple ural effusion. Developing infiltrate in the right lower lung field cannot be e xcluded. Signed by: Dr. Christopher Everett MD on 08/27/2018 7:45 AM Di ctated By: CHRISTOPHER EVERETT MD 4 COPY TO: JACQUELINE HALL ABDOMEN-1VIEW (KUB)2018-08-26 14:07:[address] [address] Patient Name: DUKE AUGUSTINE MR #: [id number] : 1945 Age/Sex: 73/F Req #: [id number] Adm Physician: ALONDRA MOREIRA MD Ordered by: ALONDRA MOREIRA MD Report #: [id number] Location: ICU Room/Bed: ICU [facility] Procedure: [id number] DX/ABDOMEN-1VIEW (KUB) Exam Date: Exam Time: REPORT STATUS: Signed Abdomen, one v iew dated 08/26/2018 at 12:28 PM. History: NG tube placement. Findings: Only the upper abdomen is included for view. There is a gastric lap band that is likely slipped not in the expected GE junction location. NG tube is presen t with its tip extending below the diaphragm. IMPRESSION: NG tube below t he diaphragm. Signed by: Dr. Piero Quintana DO on 08/26/2018 2:16 PM Dictated By: PIERO QUINTANA DO 15 COPY TO: DIVINE MOREIRA MD IR ZQVRJSP0570-00-76 13:49:00 [address] [address] Patient Name: DUKE AUGUSTINE MR #: [id number] : 1945 Age/Sex: 73/F Req #: [id number] Adm Physician: ALONDRA MOREIRA MD Ordered by: JANEL TAYLOR, RENATA TAYLOR Report #: [id number] Location: ICU Room/Bed: ICU [facility] Procedure: [id number] DX/IR CONSULT Exam Date: Exam Time: REPORT STATUS: Signed Procedure: Left common femoral vein non-tunneled central venous catheter and non-tunneled hemodialysi s catheter placement with ultrasound guidance pulpit operator: Dr. Sharmila Ferris Pre-operative diagnosis: Requiring central venous and hemodialysis acce ss. Post-operative diagnosis: Status post central venous and hemodialysis acc ess Sedation: Local Additional Medications: Lidocaine 1% for local ane sthesia Estimated blood loss: None Specimens: None Implants: 7 Fr x 16 cm triple lumen non-tunneled central venous catheter 13 Fr x 20 cm trialysis t riple lumen non-tunneled hemodialysis catheter TECHNIQUE/FINDINGS: Inform ed consent was obtained from the patient's healthcare proxy and documented in the medical record after discussion of risks and benefits. The patient was placed in the supine position. Preliminary sonographic evaluation of the right neck confirmed a patent and compressible right internal jugular vein. A perma nent sonographic image was stored for the medical record. The neck was then pr epped and draped in a standard sterile fashion. Subsequently, 1% lidocaine was infiltrated into the skin and subcutaneous tissues for local anesthesia. T hen under continuous sonographic guidance, a 21 gauge needle was advanced into the right internal jugular vein and an .018'' wire was placed, however resist ance was encountered with the wire. Repeat attempt was made and the same resis tance was present, suggesting possible central venous occlusion. The needle an d wire were removed. Subsequently, we performed an ultrasound of the right common femoral vein, which demonstrated a right GSV thrombus near the common femoral vein. Decision made to not attempt right groin access. Preliminary son ographic evaluation of the left groin demonstrated a patent and compressible l eft common femoral vein. A permanent sonographic image was stored for the [facility] record. The left groin was then prepped and draped in a standard sterile f ashion. Subsequently, 1% lidocaine was infiltrated into the skin and subcut aneous tissues of the left groin for local anesthesia. Then under continuous sonographic guidance, a 21 gauge needle was advanced into the right internal jugular vein and an .018'' wire was placed without resistance. A 5 Fr micropun cture sheath was placed and the existing wire was exchanged for an .035'' wire . The tract was dilated. Then, a 7 Fr x 16 cm triple lumen non-tunneled centra l venous catheter was advanced. The wire was then removed. Each lumen was test ed and showed adequate bidirectional flow. The catheter was secured to the ski n with Monocryl, flushed with saline, and covered by a sterile dressing. No ev idence of immediate complication. Subsequently, a separate access into the left common femoral vein was performed with a 21 gauge needle and an .018'' w aleja was placed. A 5 Fr micropuncture sheath was placed and the existing wire w as exchanged for an .035'' Amplatz wire. The tract was sequentially dilated. T hen, a 13 Fr x 20 cm Trialysis triple lumen non-tunneled hemodialysis catheter was advanced. The wire was then removed. Each lumen was tested and showed jones quate bidirectional flow. The catheter was secured to the skin with Monocryl, flushed with saline, and covered by a sterile dressing. No evidence of immedia te complication. IMPRESSION: Placement of a left common femoral vein non -tunneled triple lumen central venous and hemodialysis catheters with ultrasou nd guidance as above. Resistance with advancement of wire in the right inte rnal jugular vein, which may represent central venous stenosis. Thrombos is within the proximal right greater saphenous vein. Above findings were d iscussed with ICU nursing in person at the time of the procedure on 08/25/2018, who indicated that the findings were understood. Signed by: Dr. Sharmila Ferris MD on 08/25/2018 1:59 PM Dictated By: SHARMILA FERRIS MD Electronically S igned By: SHARMILA FERRIS MD on 08/25/18 1359 Transcribed By: JEANETTE on 08/25/18 13 59 COPY TO: RENATA ISLAS IR [id number] 13:49:00 [facility] [address] [address] Patient Name: DUKE AUGUSTINE MR #: [id number] : 1945 Age/Sex: 73/F Req #: [id number] Adm Physician: ALONDRA MOREIRA MD Ordered by: ALONDRA MOREIRA MD Report #: [id number] Location: ICU Room/Bed: ICU [facility] Procedure: [id number] DX/IR CONSULT Exam Date: Exam Time: REPORT STATUS: Signed Procedure: Left common femoral vein non-tunneled central venous catheter and non-tunneled hemodialysi s catheter placement with ultrasound guidance pulpit operator: Dr. Sharmila Ferris Pre-operative diagnosis: Requiring central venous and hemodialysis acce ss. Post-operative diagnosis: Status post central venous and hemodialysis acc ess Sedation: Local Additional Medications: Lidocaine 1% for local ane sthesia Estimated blood loss: None Specimens: None Implants: 7 Fr x 16 cm triple lumen non-tunneled central venous catheter 13 Fr x 20 cm trialysis t riple lumen non-tunneled hemodialysis catheter TECHNIQUE/FINDINGS: Inform ed consent was obtained from the patient's healthcare proxy and documented in the medical record after discussion of risks and benefits. The patient was placed in the supine position. Preliminary sonographic evaluation of the right neck confirmed a patent and compressible right internal jugular vein. A perma nent sonographic image was stored for the medical record. The neck was then pr epped and draped in a standard sterile fashion. Subsequently, 1% lidocaine was infiltrated into the skin and subcutaneous tissues for local anesthesia. T hen under continuous sonographic guidance, a 21 gauge needle was advanced into the right internal jugular vein and an .018'' wire was placed, however resist ance was encountered with the wire. Repeat attempt was made and the same resis tance was present, suggesting possible central venous occlusion. The needle an d wire were removed. Subsequently, we performed an ultrasound of the right common femoral vein, which demonstrated a right GSV thrombus near the common femoral vein. Decision made to not attempt right groin access. Preliminary son ographic evaluation of the left groin demonstrated a patent and compressible l eft common femoral vein. A permanent sonographic image was stored for the [facility] record. The left groin was then prepped and draped in a standard sterile f ashion. Subsequently, 1% lidocaine was infiltrated into the skin and subcut aneous tissues of the left groin for local anesthesia. Then under continuous sonographic guidance, a 21 gauge needle was advanced into the right internal jugular vein and an .018'' wire was placed without resistance. A 5 Fr micropun cture sheath was placed and the existing wire was exchanged for an .035'' wire . The tract was dilated. Then, a 7 Fr x 16 cm triple lumen non-tunneled centra l venous catheter was advanced. The wire was then removed. Each lumen was test ed and showed adequate bidirectional flow. The catheter was secured to the ski n with Monocryl, flushed with saline, and covered by a sterile dressing. No ev idence of immediate complication. Subsequently, a separate access into the left common femoral vein was performed with a 21 gauge needle and an .018'' w aleja was placed. A 5 Fr micropuncture sheath was placed and the existing wire w as exchanged for an .035'' Amplatz wire. The tract was sequentially dilated. T hen, a 13 Fr x 20 cm Trialysis triple lumen non-tunneled hemodialysis catheter was advanced. The wire was then removed. Each lumen was tested and showed jones quate bidirectional flow. The catheter was secured to the skin with Monocryl, flushed with saline, and covered by a sterile dressing. No evidence of immedia te complication. IMPRESSION: Placement of a left common femoral vein non -tunneled triple lumen central venous and hemodialysis catheters with ultrasou nd guidance as above. Resistance with advancement of wire in the right inte rnal jugular vein, which may represent central venous stenosis. Thrombos is within the proximal right greater saphenous vein. Above findings were d iscussed with ICU nursing in person at the time of the procedure on 08/25/2018, who indicated that the findings were understood. Signed by: Dr. Sharmila Ferris MD on 08/25/2018 1:59 PM Dictated By: SHARMILA FERRIS MD Electronically S igned By: SHARMILA FERRIS MD on 08/25/18 1359 Transcribed By: JEANETTE on 08/25/18 13 59 COPY TO: ALONDRA MOREIRA MD NON-TUNNELLED CVC CATH PLACMNT 2018-08-25 13:49:[address] [address] Patient Name: DUKE AUGUSTINE MR #: [id number] : 1945 Age/Sex: 73/F Req #: [id number] Adm Physician: ALONDRA MOREIRA MD Ordered by: JANEL TAYLOR, RENATA TAYLOR Report #: [id number] Location: ICU Room/Bed: ICU [facility] Procedure: [id number] IR/NON-TUNNELLED CVC CATH PLACMNT Exam Date: 08/25/18 Exam Time: 1004 REPORT STATUS: S igned Procedure: Left common femoral vein non-tunneled central venous cathete r and non-tunneled hemodialysis catheter placement with ultrasound guidance pulpit operator: Dr. Sharmila Ferris Pre-operative diagnosis: Requiring cent ral venous and hemodialysis access. Post-operative diagnosis: Status post yoel tral venous and hemodialysis access Sedation: Local Additional Medicat ions: Lidocaine 1% for local anesthesia Estimated blood loss: None Specimens : None Implants: 7 Fr x 16 cm triple lumen non-tunneled central venous cath eter 13 Fr x 20 cm trialysis triple lumen non-tunneled hemodialysis catheter TECHNIQUE/FINDINGS: Informed consent was obtained from the patient's healt hcare proxy and documented in the medical record after discussion of risks and benefits. The patient was placed in the supine position. Preliminary sonog raphic evaluation of the right neck confirmed a patent and compressible right internal jugular vein. A permanent sonographic image was stored for the medica l record. The neck was then prepped and draped in a standard sterile fashion. Subsequently, 1% lidocaine was infiltrated into the skin and subcutaneous tissues for local anesthesia. Then under continuous sonographic guidance, a 21 gauge needle was advanced into the right internal jugular vein and an .018'' wire was placed, however resistance was encountered with the wire. Repeat att empt was made and the same resistance was present, suggesting possible central venous occlusion. The needle and wire were removed. Subsequently, we perf ormed an ultrasound of the right common femoral vein, which demonstrated a rig ht GSV thrombus near the common femoral vein. Decision made to not attempt rig ht groin access. Preliminary sonographic evaluation of the left groin demonstr ated a patent and compressible left common femoral vein. A permanent sonograph ic image was stored for the medical record. The left groin was then prepped an d draped in a standard sterile fashion. Subsequently, 1% lidocaine was infi ltrated into the skin and subcutaneous tissues of the left groin for local ane sthesia. Then under continuous sonographic guidance, a 21 gauge needle was adv anced into the right internal jugular vein and an .018'' wire was placed witho ut resistance. A 5 Fr micropuncture sheath was placed and the existing wire wa s exchanged for an .035'' wire. The tract was dilated. Then, a 7 Fr x 16 cm tr iple lumen non-tunneled central venous catheter was advanced. The wire was the n removed. Each lumen was tested and showed adequate bidirectional flow. The c atheter was secured to the skin with Monocryl, flushed with saline, and covere d by a sterile dressing. No evidence of immediate complication. Subseque ntly, a separate access into the left common femoral vein was performed with a 21 gauge needle and an .018'' wire was placed. A 5 Fr micropuncture sheath wa s placed and the existing wire was exchanged for an .035'' Amplatz wire. The t ract was sequentially dilated. Then, a 13 Fr x 20 cm Trialysis triple lumen no n-tunneled hemodialysis catheter was advanced. The wire was then removed. Each lumen was tested and showed adequate bidirectional flow. The catheter was sec ured to the skin with Monocryl, flushed with saline, and covered by a sterile dressing. No evidence of immediate complication. IMPRESSION: Placement o f a left common femoral vein non-tunneled triple lumen central venous and hemo dialysis catheters with ultrasound guidance as above. Resistance with advan cement of wire in the right internal jugular vein, which may represent central venous stenosis. Thrombosis within the proximal right greater saphenous v ein. Above findings were discussed with ICU nursing in person at the time of the procedure on 08/25/2018, who indicated that the findings were understood . Signed by: Dr. Sharmila Ferris MD on 08/25/2018 1:59 PM Dictated By: SHARMILA FERRIS MD 1359 Transc ribed By: JEANETTE on 08/25/18 1355 COPY TO: RENATA ISLAS NON- TUNNELLED CVC CATH [id number] 13:49:[address] [address] Patient Name: DUKE AUGUSTINE MR #: [id number] : 1945 Age/Sex: 73/F Req #: [id number] Adm Physician: ALONDRA MOREIRA MD Ordered by: RENATA ISLAS MD, MD Report #: [id number] Location: ICU Room/Bed: ICU [facility] Procedure: [id number] IR/NON-TUNNELLED CVC CATH PLACMNT Exam Date: 08/25/18 Exam Time: 1004 REPORT STATUS: S igned Procedure: Left common femoral vein non-tunneled central venous cathete r and non-tunneled hemodialysis catheter placement with ultrasound guidance pulpit operator: Dr. Sharmila Ferris Pre-operative diagnosis: Requiring cent ral venous and hemodialysis access. Post-operative diagnosis: Status post yoel tral venous and hemodialysis access Sedation: Local Additional Medicat ions: Lidocaine 1% for local anesthesia Estimated blood loss: None Specimens : None Implants: 7 Fr x 16 cm triple lumen non-tunneled central venous cath eter 13 Fr x 20 cm trialysis triple lumen non-tunneled hemodialysis catheter TECHNIQUE/FINDINGS: Informed consent was obtained from the patient's healt hcare proxy and documented in the medical record after discussion of risks and benefits. The patient was placed in the supine position. Preliminary sonog raphic evaluation of the right neck confirmed a patent and compressible right internal jugular vein. A permanent sonographic image was stored for the medica l record. The neck was then prepped and draped in a standard sterile fashion. Subsequently, 1% lidocaine was infiltrated into the skin and subcutaneous tissues for local anesthesia. Then under continuous sonographic guidance, a 21 gauge needle was advanced into the right internal jugular vein and an .018'' wire was placed, however resistance was encountered with the wire. Repeat att empt was made and the same resistance was present, suggesting possible central venous occlusion. The needle and wire were removed. Subsequently, we perf ormed an ultrasound of the right common femoral vein, which demonstrated a rig ht GSV thrombus near the common femoral vein. Decision made to not attempt rig ht groin access. Preliminary sonographic evaluation of the left groin demonstr ated a patent and compressible left common femoral vein. A permanent sonograph ic image was stored for the medical record. The left groin was then prepped an d draped in a standard sterile fashion. Subsequently, 1% lidocaine was infi ltrated into the skin and subcutaneous tissues of the left groin for local ane sthesia. Then under continuous sonographic guidance, a 21 gauge needle was adv anced into the right internal jugular vein and an .018'' wire was placed witho ut resistance. A 5 Fr micropuncture sheath was placed and the existing wire wa s exchanged for an .035'' wire. The tract was dilated. Then, a 7 Fr x 16 cm tr iple lumen non-tunneled central venous catheter was advanced. The wire was the n removed. Each lumen was tested and showed adequate bidirectional flow. The c atheter was secured to the skin with Monocryl, flushed with saline, and covere d by a sterile dressing. No evidence of immediate complication. Subseque ntly, a separate access into the left common femoral vein was performed with a 21 gauge needle and an .018'' wire was placed. A 5 Fr micropuncture sheath wa s placed and the existing wire was exchanged for an .035'' Amplatz wire. The t ract was sequentially dilated. Then, a 13 Fr x 20 cm Trialysis triple lumen no n-tunneled hemodialysis catheter was advanced. The wire was then removed. Each lumen was tested and showed adequate bidirectional flow. The catheter was sec ured to the skin with Monocryl, flushed with saline, and covered by a sterile dressing. No evidence of immediate complication. IMPRESSION: Placement o f a left common femoral vein non-tunneled triple lumen central venous and hemo dialysis catheters with ultrasound guidance as above. Resistance with advan cement of wire in the right internal jugular vein, which may represent central venous stenosis. Thrombosis within the proximal right greater saphenous v ein. Above findings were discussed with ICU nursing in person at the time of the procedure on 08/25/2018, who indicated that the findings were understood . Signed by: Dr. Sharmila Ferris MD on 08/25/2018 1:59 PM Dictated By: SHARMILA FERRIS MD 1351 Transc ribed By: JEANETTE on 08/25/18 1357 COPY TO: RENATA ISLAS GUIDANCE FOR VASCULAR [id number] 13:49:[address] [address] Patient Name: DUKE AUGUSTINE MR #: [id number] : 1945 Age/Sex: 73/F Req #: [id number] Adm Physician: ALONDRA MOREIRA MD Ordered by: RENATA ISLAS MD, MD Report #: [id number] Location: ICU Room/Bed: ICU 190-1 Procedure: [id number] US/US GUIDANCE FOR VASCULAR ACCES Exam Date: 08/25/18 Exam Time: 1004 REPORT STATUS: S igned Procedure: Left common femoral vein non-tunneled central venous cathete r and non-tunneled hemodialysis catheter placement with ultrasound guidance pulpit operator: Dr. Sharmila Ferris Pre-operative diagnosis: Requiring cent ral venous and hemodialysis access. Post-operative diagnosis: Status post yoel tral venous and hemodialysis access Sedation: Local Additional Medicat ions: Lidocaine 1% for local anesthesia Estimated blood loss: None Specimens : None Implants: 7 Fr x 16 cm triple lumen non-tunneled central venous cath eter 13 Fr x 20 cm trialysis triple lumen non-tunneled hemodialysis catheter TECHNIQUE/FINDINGS: Informed consent was obtained from the patient's healt hcare proxy and documented in the medical record after discussion of risks and benefits. The patient was placed in the supine position. Preliminary sonog raphic evaluation of the right neck confirmed a patent and compressible right internal jugular vein. A permanent sonographic image was stored for the medica l record. The neck was then prepped and draped in a standard sterile fashion. Subsequently, 1% lidocaine was infiltrated into the skin and subcutaneous tissues for local anesthesia. Then under continuous sonographic guidance, a 21 gauge needle was advanced into the right internal jugular vein and an .018'' wire was placed, however resistance was encountered with the wire. Repeat att empt was made and the same resistance was present, suggesting possible central venous occlusion. The needle and wire were removed. Subsequently, we perf ormed an ultrasound of the right common femoral vein, which demonstrated a rig ht GSV thrombus near the common femoral vein. Decision made to not attempt rig ht groin access. Preliminary sonographic evaluation of the left groin demonstr ated a patent and compressible left common femoral vein. A permanent sonograph ic image was stored for the medical record. The left groin was then prepped an d draped in a standard sterile fashion. Subsequently, 1% lidocaine was infi ltrated into the skin and subcutaneous tissues of the left groin for local ane sthesia. Then under continuous sonographic guidance, a 21 gauge needle was adv anced into the right internal jugular vein and an .018'' wire was placed witho ut resistance. A 5 Fr micropuncture sheath was placed and the existing wire wa s exchanged for an .035'' wire. The tract was dilated. Then, a 7 Fr x 16 cm tr iple lumen non-tunneled central venous catheter was advanced. The wire was the n removed. Each lumen was tested and showed adequate bidirectional flow. The c atheter was secured to the skin with Monocryl, flushed with saline, and covere d by a sterile dressing. No evidence of immediate complication. Subseque ntly, a separate access into the left common femoral vein was performed with a 21 gauge needle and an .018'' wire was placed. A 5 Fr micropuncture sheath wa s placed and the existing wire was exchanged for an .035'' Amplatz wire. The t ract was sequentially dilated. Then, a 13 Fr x 20 cm Trialysis triple lumen no n-tunneled hemodialysis catheter was advanced. The wire was then removed. Each lumen was tested and showed adequate bidirectional flow. The catheter was sec ured to the skin with Monocryl, flushed with saline, and covered by a sterile dressing. No evidence of immediate complication. IMPRESSION: Placement o f a left common femoral vein non-tunneled triple lumen central venous and hemo dialysis catheters with ultrasound guidance as above. Resistance with advan cement of wire in the right internal jugular vein, which may represent central venous stenosis. Thrombosis within the proximal right greater saphenous v ein. Above findings were discussed with ICU nursing in person at the time of the procedure on 08/25/2018, who indicated that the findings were understood . Signed by: Dr. Sharmila Ferris MD on 08/25/2018 1:59 PM Dictated By: SHARMILA FERRIS MD [id number] Transc ribed By: JEANETTE on 08/25/18 0570 COPY TO: RENATA ISLAS GUIDANCE FOR VASCULAR [id number] 13:49:00 [facility] [place] [address] Patient Name: DUKE AUGUSTINE MR #: [id number] : 1945 Age/Sex: 73/F Req #: [id number] Adm Physician: ALONDRA MOREIRA MD Ordered by: JANEL TAYLOR, RENATA TAYLOR Report #: [id number] Location: ICU Room/Bed: ICU [facility] Procedure: [id number] US/US GUIDANCE FOR VASCULAR ACCES Exam Date: 08/25/18 Exam Time: 1114 REPORT STATUS: S igned Procedure: Left common femoral vein non-tunneled central venous cathete r and non-tunneled hemodialysis catheter placement with ultrasound guidance pulpit operator: Dr. Sharmila Ferris Pre-operative diagnosis: Requiring cent ral venous and hemodialysis access. Post-operative diagnosis: Status post yoel tral venous and hemodialysis access Sedation: Local Additional Medicat ions: Lidocaine 1% for local anesthesia Estimated blood loss: None Specimens : None Implants: 7 Fr x 16 cm triple lumen non-tunneled central venous cath eter 13 Fr x 20 cm trialysis triple lumen non-tunneled hemodialysis catheter TECHNIQUE/FINDINGS: Informed consent was obtained from the patient's healt hcare proxy and documented in the medical record after discussion of risks and benefits. The patient was placed in the supine position. Preliminary sonog raphic evaluation of the right neck confirmed a patent and compressible right internal jugular vein. A permanent sonographic image was stored for the medica l record. The neck was then prepped and draped in a standard sterile fashion. Subsequently, 1% lidocaine was infiltrated into the skin and subcutaneous tissues for local anesthesia. Then under continuous sonographic guidance, a 21 gauge needle was advanced into the right internal jugular vein and an .018'' wire was placed, however resistance was encountered with the wire. Repeat att empt was made and the same resistance was present, suggesting possible central venous occlusion. The needle and wire were removed. Subsequently, we perf ormed an ultrasound of the right common femoral vein, which demonstrated a rig ht GSV thrombus near the common femoral vein. Decision made to not attempt rig ht groin access. Preliminary sonographic evaluation of the left groin demonstr ated a patent and compressible left common femoral vein. A permanent sonograph ic image was stored for the medical record. The left groin was then prepped an d draped in a standard sterile fashion. Subsequently, 1% lidocaine was infi ltrated into the skin and subcutaneous tissues of the left groin for local ane sthesia. Then under continuous sonographic guidance, a 21 gauge needle was adv anced into the right internal jugular vein and an .018'' wire was placed witho ut resistance. A 5 Fr micropuncture sheath was placed and the existing wire wa s exchanged for an .035'' wire. The tract was dilated. Then, a 7 Fr x 16 cm tr iple lumen non-tunneled central venous catheter was advanced. The wire was the n removed. Each lumen was tested and showed adequate bidirectional flow. The c atheter was secured to the skin with Monocryl, flushed with saline, and covere d by a sterile dressing. No evidence of immediate complication. Subseque ntly, a separate access into the left common femoral vein was performed with a 21 gauge needle and an .018'' wire was placed. A 5 Fr micropuncture sheath wa s placed and the existing wire was exchanged for an .035'' Amplatz wire. The t ract was sequentially dilated. Then, a 13 Fr x 20 cm Trialysis triple lumen no n-tunneled hemodialysis catheter was advanced. The wire was then removed. Each lumen was tested and showed adequate bidirectional flow. The catheter was sec ured to the skin with Monocryl, flushed with saline, and covered by a sterile dressing. No evidence of immediate complication. IMPRESSION: Placement o f a left common femoral vein non-tunneled triple lumen central venous and hemo dialysis catheters with ultrasound guidance as above. Resistance with advan cement of wire in the right internal jugular vein, which may represent central venous stenosis. Thrombosis within the proximal right greater saphenous v ein. Above findings were discussed with ICU nursing in person at the time of the procedure on 08/25/2018, who indicated that the findings were understood . Signed by: Dr. Sharmila Ferris MD on 08/25/2018 1:59 PM Dictated By: SHARMILA FERRIS MD [id number] Transc ribed By: JEANETTE on 08/25/18 5087 COPY TO: RENATA ISLAS CT ABDOMEN/PELVIS [id number] 08:47:00 [place] [address] Patient Name: DUKE AUGUSTINE MR #: [id number] : 1945 Age/Sex: 73/F Req #: [id number] Adm Physician: ALONDRA MOREIRA MD Ordered by: BALDOMERO WELSH MD Report #: [id number] Location: ICU Room/Bed: ICU [facility] Procedure: [id number] C T/CT ABDOMEN/PELVIS WO Exam Date: 08/25/18 Exam Time : 0820 REPORT STATUS: Signed EXA M: CT Chest, Abdomen and Pelvis WITHOUT contrast INDICATION: Sepsis COMPAR NOAH: CT chest abdomen pelvis, 08/21/2018 TECHNIQUE: Chest, abdomen and pelvis were scanned utilizing a multidetector helical scanner from the lung apex to t he pubic symphysis without administration of IV contrast. Absence of intraveno us contrast decreases sensitivity for detection of focal lesions and vascular pathology. Coronal and sagittal reformations were obtained. Routine protocol w as performed. Dose modulation, iterative reconstruction, and/or weight bas ed adjustment of the mA/kV was utilized to reduce the radiation dose to as low as reasonably achievable. IV CONTRAST: None. ORAL CONTRAST: None RADIATION DOSE: Total DLP: 1038.52 mGy*cm Estimated effective dose: (DLP x 0.015 x size factor) mSv COMPLICATIONS: None FINDINGS: LINES and TUBES: Again noted is a gas tric band with tubing extending to a port in the anterior abdominal wall. Agai n noted is a generator device in the left lateral abdominal wall with a lead e xtending anterior to the sternum. Barahona catheter in the urinary bladder. LUNGS AND AIRWAYS: Since last exam, extensive right lower lobe atelectasis wi th air bronchograms has developed. Atelectasis with air bronchograms in the le ft lower lobe is also present to a lesser degree. Trachea and main bronchi ar e clear. PLEURA: Trace right pleural effusion has developed since last exam . No pneumothorax. HEART AND MEDIASTINUM: The thyroid gland is normal. N o mediastinal, hilar or axillary lymphadenopathy. The heart is normal in size .. There is no pericardial effusion. The thoracic aorta is atherosclerotic wi th calcified plaques. No aortic aneurysm. Main pulmonary artery is dilated unruly suring 3.5 cm, nonspecific finding but may be seen with pulmonary hypertension . As noted on previous exam, the esophagus remains distended with fluid and ai r. HEPATOBILIARY: Much of the unenhanced liver is obscured by artifact from the generator device in the left abdomen. No focal hepatic lesions. No bilia ry ductal dilation. GALLBLADDER: The gallbladder is distended. No radiop aque calculi seen. No wall thickening. SPLEEN: No splenomegaly. HAQ CREAS: No focal masses or ductal dilatation. ADRENALS: No adrenal nodules KIDNEYS/URETERS: No hydronephrosis. There is an extrarenal pelvis on t he right. No cystic or solid mass lesions. No stones. GI TRACT: There is a fluid-filled structure adjacent to the gallbladder (series 2, image 65) lik gurjit represents distention of the duodenum. There is no obvious dilatation of t he small bowel. Previously administered contrast has reached the cecum. The ri ght lower quadrant area is largely obscured by streak artifact. The appendix i s not conspicuously visualized on the current exam. Mildly dilated air and fl uid-filled small bowel in the midabdomen may represent postoperative ileus. PELVIC ORGANS/BLADDER: Urinary bladder is obscured by streak artifact fr om right hip hardware. A Barahona catheter is present no obvious mass or fluid collection in the unobscured portions of the pelvis. LYMPH NODES: No domina nt lymph node mass in the abdomen, retroperitoneum or pelvis. VESSELS: Un enhanced abdominal aorta is atherosclerotic with extensive plaque formation. N o aneurysm. PERITONEUM / RETROPERITONEUM: A fluid collection is developed i n the right lower quadrant measuring approximately 4.8 x 5.7 cm transversely ( series 2, image 103) and 9.4 cm on coronal image (series 502, image 57). The f luid collection is contiguous with the portion of the gastric band tubing. The re is no air in this fluid collection. There is no obvious evidence for pneu moperitoneum. BONES: No acute or suspicious bony lesions. Right hip arthrop lasty hardware noted. Scoliosis and degenerative change seen in the lumbar spi ne. Wire sternotomy sutures are present. SOFT TISSUES: Superficial surrou nding soft tissue shows trace air in the left anterior abdominal wall musculat ure (series 2, image 79). This is new since the previous exam. There are new s kin chinmay over the lower abdomen and pelvis. IMPRESSION: 1. Bilateral lower lobe consolidation with air bronchograms, greater on the right, developing since previous exam. This is compatible with possible pneumo tanya or aspiration. 2. Enlarging collection of fluid in the right lower gabrielle drant of the abdomen. There is no air within this fluid. This may represent in creasing ascites, postoperative fluid or may be fluid tracking along the adjac ent gastric band catheter. 3. Distention of the third portion of the duo denum. This may be a transient finding or may represent ileus. There are mildl y distended air and fluid-filled small bowel loops in the midabdomen which may represent ileus, possibly postoperative. 4. Postoperative status since previous exam with skin chinmay over the lower abdomen and pelvis and minimal air in the anterior pelvic wall. Signed by: Dr. Paulina Reynoso M.D. on 08/25/2018 9:38 AM Dictated By: PAULINA REYNOSO MD 7 Transcribed By: JEANETTE on 08/25/18937 COPY TO: BALDOMERO WELSH MD CT CHEST [id number] 08:47:00 [place] [address] Patient Name: DUKE AUGUSTINE MR #: [id number] : 1945 Age/Sex: 73/F Req #: [id number] Adm Physician: ALONDRA MOREIRA MD Ordered by: BALDOMERO WELSH MD Report #: [id number] Location: ICU Room/Bed: ICU [facility] Procedure: [id number] C T/CT CHEST WO Exam Date: 08/25/18 Exam Time: 08 REPORT STATUS: Signed EXAM: CT [facility] [facility], Abdomen and Pelvis WITHOUT contrast INDICATION: Sepsis COMPARISON: CT chest abdomen pelvis, 08/21/2018 TECHNIQUE: Chest, abdomen and pelvis were scan ryan utilizing a multidetector helical scanner from the lung apex to the pubic symphysis without administration of IV contrast. Absence of intravenous contra st decreases sensitivity for detection of focal lesions and vascular pathology . Coronal and sagittal reformations were obtained. Routine protocol was perfor med. Dose modulation, iterative reconstruction, and/or weight based adjust ment of the mA/kV was utilized to reduce the radiation dose to as low as reaso nably achievable. IV CONTRAST: None. ORAL CONT RAST: None RADIATION DOSE: Total DLP: 1038.52 mGy*cm Estimated effective dose: (DLP x 0.015 x size factor) mSv COMPLI CATIONS: None FINDINGS: LINES and TUBES: Again noted is a gastric band with tubing extending to a port in the anterior abdominal wall. Again noted i s a generator device in the left lateral abdominal wall with a lead extending anterior to the sternum. Barahona catheter in the urinary bladder. LUNGS AND AIRWAYS: Since last exam, extensive right lower lobe atelectasis with air br onchograms has developed. Atelectasis with air bronchograms in the left lower lobe is also present to a lesser degree. Trachea and main bronchi are clear. PLEURA: Trace right pleural effusion has developed since last exam. No pn eumothorax. HEART AND MEDIASTINUM: The thyroid gland is normal. No mediast inal, hilar or axillary lymphadenopathy. The heart is normal in size.. There is no pericardial effusion. The thoracic aorta is atherosclerotic with calcif ied plaques. No aortic aneurysm. Main pulmonary artery is dilated measuring 3. 5 cm, nonspecific finding but may be seen with pulmonary hypertension. As note d on previous exam, the esophagus remains distended with fluid and air. H EPATOBILIARY: Much of the unenhanced liver is obscured by artifact from the ge nerator device in the left abdomen. No focal hepatic lesions. No biliary duct al dilation. GALLBLADDER: The gallbladder is distended. No radiopaque calc rip seen. No wall thickening. SPLEEN: No splenomegaly. PANCREAS: No focal masses or ductal dilatation. ADRENALS: No adrenal nodules KIDNEYS/URETERS: No hydronephrosis. There is an extrarenal pelvis on the right. No cystic or solid mass lesions. No stones. GI TRACT: There is a fluid- filled structure adjacent to the gallbladder (series 2, image 65) likely repre sents distention of the duodenum. There is no obvious dilatation of the small bowel. Previously administered contrast has reached the cecum. The right lower quadrant area is largely obscured by streak artifact. The appendix is not con spicuously visualized on the current exam. Mildly dilated air and fluid-fille d small bowel in the midabdomen may represent postoperative ileus. P ELVIC ORGANS/BLADDER: Urinary bladder is obscured by streak artifact from righ t hip hardware. A Barahona catheter is present no obvious mass or fluid collectio n in the unobscured portions of the pelvis. LYMPH NODES: No dominant lymph node mass in the abdomen, retroperitoneum or pelvis. VESSELS: Unenhanced abdominal aorta is atherosclerotic with extensive plaque formation. No aneurys m. PERITONEUM / RETROPERITONEUM: A fluid collection is developed in the rig ht lower quadrant measuring approximately 4.8 x 5.7 cm transversely (series 2, image 103) and 9.4 cm on coronal image (series 502, image 57). The fluid co llection is contiguous with the portion of the gastric band tubing. There is n o air in this fluid collection. There is no obvious evidence for pneumoperiton eum. BONES: No acute or suspicious bony lesions. Right hip arthroplasty jey dware noted. Scoliosis and degenerative change seen in the lumbar spine. Wire sternotomy sutures are present. SOFT TISSUES: Superficial surrounding sof t tissue shows trace air in the left anterior abdominal wall musculature (seri es 2, image 79). This is new since the previous exam. There are new skin stapl es over the lower abdomen and pelvis. IMPRESSION: 1. Bila teral lower lobe consolidation with air bronchograms, greater on the right, de veloping since previous exam. This is compatible with possible pneumonia or as piration. 2. Enlarging collection of fluid in the right lower quadrant of the abdomen. There is no air within this fluid. This may represent increasing ascites, postoperative fluid or may be fluid tracking along the adjacent gastr ic band catheter. 3. Distention of the third portion of the duodenum. Th is may be a transient finding or may represent ileus. There are mildly distend ed air and fluid-filled small bowel loops in the midabdomen which may represen t ileus, possibly postoperative. 4. Postoperative status since previous exam with skin chinmay over the lower abdomen and pelvis and minimal air in t he anterior pelvic wall. Signed by: Dr. Paulina Reynoso M.D. on 019 9:38 AM Dictated By: PAULINA REYNOSO MD 7 Transcribed By: JEANETTE on 08/25/18937 CO PY TO: BALDOMERO WELSH MD CT BRAIN [id number] 17:43:00 [place] [address] Patient Name: DUKE AUGUSTINE MR #: [id number] : 1945 Age/Sex: 73/F Req #: [id number] Adm Physician: ALONDRA MOREIRA MD Ordered by: JANEL TAYLOR, RENATA TAYLOR Report #: [id number] Location: ICU Room/Bed: ICU [facility] Procedure: [id number] CT/CT BRAIN WO Exam Date: Exam Time: REPORT STATUS: Signed Exam: Head CT without contrast History: Altered mental status, rule out CVA Comparison studies: Head CT 08/21/2018. Technique: Axial images were obtained from the skull b ase to the vertex. Coronal and sagittal images reconstructed from the axial da ta. Dose modulation, iterative reconstruction, and/or weight based adjustment of the mA/kV was utilized to reduce the radiation dose to as low as reasonabl y achievable. Radiation dose: Total DLP: 1036 mGy*cm. Estimated e ffective dose: DLP x 0.015 Intravenous contrast: None Findings: Sca lp: No abnormalities. Bones: No fractures, blastic or lytic lesions. Brai n sulci: Appropriate for age. Ventricles: Mild compensatory dilatation of the lateral and third ventricles. No hydrocephalus. Extra-axial spaces: No mass es, no fluid collection. Parenchyma: Dilation of the posterior fossa is limited by artifacts but without gross abnormalities. No mass, acute hemorrha ge or acute cortical vascular insults. A few scattered hypodensities in the sauceda pratentorial white matter are nonspecific but most compatible with chronic sma ll vessel ischemic changes. Sellar/suprasellar region: No abnormalities . Craniocervical junction: Patent foramen magnum. No Chiari one malformation. Incidental findings: Atherosclerotic calcifications in the carotid sipho ns an in the right intradural vertebral artery. IMPRESSION: 1. Serg luation of the posterior fossa limited by artifacts but without gross acute ab normalities. No acute intracranial abnormalities in the remaining brain. 2. Mild chronic microvascular ischemic changes. Signed by: Dr. Baldomero Palm M.D. on 08/24/2018 5:48 PM Dictated By: BALDOEMRO PALM MD Electronicall y Signed By: BALDOMERO PALM MD on 08/24/181747 Transcribed By: JEANETTE on 1747 COPY TO: RENATA ISLAS Lactic Acid [id number] 04:36:00* Test Item Value Reference Range Interpretation Comments Lactic Acid Level (test code = Lactic Acid Level) 9.0 4.5- 19.8 [facility] [id number] 04:36:00* Test Item Value Reference Range Interpretation Comments Amylase Level (test code = 1798-8) 59 25-125 [facility]2019-03-13 04:36:00* Test Item Value Reference Range Interpretation Comments Lipase (test code = 3040-3) [facility] [id number] 04:36:00* Test Item Value Reference Range Interpretation Comments Lactic Acid Level (test code = Lactic Acid Level) 9.0 4.5- 19.8 [facility] [id number] 04:36:00* Test Item Value Reference Range Interpretation Comments Amylase Level (test code = 1798-8) 59 25-125 [facility]2019-03-13 04:36:00* Test Item Value Reference Range Interpretation Comments Lipase (test code = 3040-3) [facility] [id number] 04:36:00* Test Item Value Reference Range Interpretation Comments Lactic Acid Level (test code = Lactic Acid Level) 9.0 4.5- 19.8 [facility]Am[facility] [id number] 04:36:00* Test Item Value Reference Range Interpretation Comments Amylase Level (test code = 1798-8) 59 25-125 [facility]2019-03-13 04:36:00* Test Item Value Reference Range Interpretation Comments Lipase (test code = 3040-3) [facility] Blood [id number] 03:54:00* Test Item Value Reference Range Interpretation Comments Arterial Blood pH (test code = 2744-1) 7.36 7.31-7.41 [facility] Partial Pressure CO2 2018-08-24 03:54:00* Test Item Value Reference Range Interpretation Comments Arterial Blood Partial Pressure CO2 (test code = 2019-01) 31 41-51 L [facility] Partial Pressure O2 2018-08-24 03:54:00* Test Item Value Reference Range Interpretation Comments Arterial Blood Partial Pressure O2 (test code = 2019-8) 86 80-105 Results called/hand delivered to DR. WASHBURN at 0330 on 08/24/18 by Vandana lindsey. RB [place].[facility] Blood HCO3 2018-08-24 03:54:00* Test Item Value Reference Range Interpretation Comments Arterial Blood HCO3 (test code = 1960-4) 18 23-28 L [facility] Base [id number] 03:54:00* Test Item Value Reference Range Interpretation Comments Arterial Blood Base Excess (test code = 1925-7) -8.0 -2-3 L [facility] Blood Oxygen Saturation 2018-08-24 03:54:00* Test Item Value Reference Range Interpretation Comments Arterial Blood Oxygen Saturation (test code = 2708-6) 96.0 95-98 [facility] SouthFiO22019-03-13 03:54:00* Test Item Value Reference Range Interpretation Comments FiO2 (test code = FiO2) 100 ABG ON NRM, PT. PLACED ON BIPAP PER WU FOLLOWING ABG RESULTS.[facility] Blood [id number] 03:54:00* Test Item Value Reference Range Interpretation Comments Arterial Blood pH (test code = 2744-1) 7.36 7.31-7.41 [facility] Partial Pressure CO2 2018-08-24 03:54:00* Test Item Value Reference Range Interpretation Comments Arterial Blood Partial Pressure CO2 (test code = 2018-8) 31 41-51 L [facility] Partial Pressure O2 2018-08-24 03:54:00* Test Item Value Reference Range Interpretation Comments Arterial Blood Partial Pressure O2 (test code = 2018-8) 86 80-105 Results called/hand delivered to DR. WASHBURN at 0330 on 08/24/18 by Vandana lindsey. RB [place].[facility] HCO3 2018-08-24 03:54:00* Test Item Value Reference Range Interpretation Comments Arterial Blood HCO3 (test code = 1960-4) 18 23-28 L [facility] Base [id number] 03:54:00* Test Item Value Reference Range Interpretation Comments Arterial Blood Base Excess (test code = 1925-7) -8.0 -2-3 L [facility] Oxygen Saturation 2018-08-24 03:54:00* Test Item Value Reference Range Interpretation Comments Arterial Blood Oxygen Saturation (test code = 2708-6) 96.0 95-98 [facility]2019-03-13 03:54:00* Test Item Value Reference Range Interpretation Comments FiO2 (test code = FiO2) 100 ABG ON NRM, PT. PLACED ON BIPAP PER WU FOLLOWING ABG RESULTS.[facility] Blood [id number] 03:54:00* Test Item Value Reference Range Interpretation Comments Arterial Blood pH (test code = 2744-1) 7.36 7.31-7.41 [facility] Partial Pressure CO2 2018-08-24 03:54:00* Test Item Value Reference Range Interpretation Comments Arterial Blood Partial Pressure CO2 (test code = 2018-8) 31 41-51 L [facility] Blood Partial Pressure O2 2018-08-24 03:54:00* Test Item Value Reference Range Interpretation Comments Arterial Blood Partial Pressure O2 (test code = 2018-8) 86 80-105 Results called/hand delivered to DR. WASHBURN at 0330 on 08/24/18 by Vandana lindsey. RB [place].[facility] HCO3 2018-08-24 03:54:00* Test Item Value Reference Range Interpretation Comments Arterial Blood HCO3 (test code = 1960-4) 18 23-28 L [facility]Ar[facility] Blood Base [id number] 03:54:00* Test Item Value Reference Range Interpretation Comments Arterial Blood Base Excess (test code = 1925-7) -8.0 -2-3 L [facility] Blood Oxygen Saturation 2018-08-24 03:54:00* Test Item Value Reference Range Interpretation Comments Arterial Blood Oxygen Saturation (test code = 2708-6) 96.0 95-98 [facility]Fi[facility]2019-03-13 03:54:00* Test Item Value Reference Range Interpretation Comments FiO2 (test code = FiO2) 100 ABG ON NRM, PT. PLACED ON BIPAP PER WASHBURN FOLLOWING ABG RESULTS.[facility] [id number] 12:35:00* Test Item Value Reference Range Interpretation Comments Creatine Kinase (test code = 2157-6) 18 29-168 L [facility] SouthCreatine Kinase [id number] 12:35:00* Test Item Value Reference Range Interpretation Comments Creatine Kinase MB (test code = 05063-5) 0.40 0-5.0 [place] [id number] 12:35:00* Test Item Value Reference Range Interpretation Comments Troponin I (test code = CNL6243) 0.102 0-0.300 [facility]2019 12:35:00* Test Item Value Reference Range Interpretation Comments Creatine Kinase (test code = 2157-6) 18 29-168 L [facility] SouthCreat[facility] Kinase [id number] 12:35:00* Test Item Value Reference Range Interpretation Comments Creatine Kinase MB (test code = 27263-3) 0.40 0-5.0 [place] [id number] 12:35:00* Test Item Value Reference Range Interpretation Comments Troponin I (test code = GFW3886) 0.102 0-0.300 [facility]2019 12:35:00* Test Item Value Reference Range Interpretation Comments Creatine Kinase (test code = 2157-6) 18 29-168 L [facility] SouthCreat[facility] Kinase [id number] 12:35:00* Test Item Value Reference Range Interpretation Comments Creatine Kinase MB (test code = 52380-7) 0.40 0-5.0 [place] [id number] 12:35:00* Test Item Value Reference Range Interpretation Comments Troponin I (test code = BAR2758) 0.102 0-0.300 [facility]PELVIS [id number] 23:41:00 [facility] [address] [place] [address] Patient Name: DUKE AUGUSTINE MR #: [id number] : [birth year] Age/Sex: 73/F Req #: [id number] Adm Physician: ALONDRA MOREIRA MD Ordered by: JUDITH CHENG MD Report #: [id number] Location: MED/SURG Room/Bed: [facility] Procedure: [id number]/CT ABDOMEN/PELVIS WO Exam Date: 08/21/18 Exam Time: 2319 REPORT STATUS: Signed EXAM: CT Abdomen and Pelvis WITHOUT contrast INDICATION: with oral contras t per radiologist recommendation. Abnormal CT COMPARISON: CT abdomen and pe lvis 08/21/2018 at 11:38 AM. TECHNIQUE: Abdomen and pelvis were scanned utilYumberi ng a multidetector helical scanner from the lung base to the pubic symphysis w ithout administration of IV contrast. Absence of intravenous contrast decrease s sensitivity for detection of focal lesions and vascular pathology. Coronal a nd sagittal reformations were obtained. Routine protocol was performed. IV CONTRAST: None ORAL CONTRAST: Gastrografin COMPLICA TIONS: None RADIATION DOSE: Total DLP: 766.8 mGy*cm Estimated effective dose: (DLP x 0.015 x size factor) mSv Dose modulation, iterati ve reconstruction, and/or weight based adjustment of the mA/kV was utilized to reduce the radiation dose to as low as reasonably achievable. FINDINGS: LINES and TUBES: There is a gastric band with the port in the right upper anterior abdominal wall soft tissues. A large portion of the gastric band has eroded into the gastric lumen and appears surrounded by enteric contrast in th e stomach. Fluid, stranding, and air are seen tracking along the catheter (for example on series 2 image [address] No contrast extravasation is seen from the stomach. LOWER THORAX: There is linear subsegmental atelec tasis at the lung bases. Coronary atherosclerosis. Partially seen left lateral chest wall AICD device. HEPATOBILIARY: No focal hepatic lesions. No b iliary ductal dilation. GALLBLADDER: Mildly distended. No radio-opaque sto kelin or sludge. No wall thickening. SPLEEN: No splenomegaly. PANCRE : No focal masses or ductal dilatation. ADRENALS: No adrenal nodules KIDNEYS/URETERS: No hydronephrosis. No cystic or solid mass lesions. No stones. GI TRACT: Administered enteric contrast has not reached the dist al small bowel which remains unopacified. Area in question on the prior CT wit h thickened cecum and terminal ileum remains suboptimally evaluated as adminis tered enteric contrast has not reached the distal small bowel. The appendix is better visualized, with tip seen on axial image 66, coronal image 51. The asia endix is dilated to approximately 1.7 cm near the tip and approximately 2.5 cm at the base. Colonic diverticulosis, most pronounced in the sigmoid col on, without definite evidence of diverticulitis. PELVIC ORGANS/BLADDER: Limited evaluation due to streak artifact. The bladder is decompressed. L YMPH NODES: No lymphadenopathy. VESSELS: There are extensive atheroscleroti c calcifications in the aorta and branch vessels. PERITONEUM / RETROPERI TONEUM: Small amount of ascites within the right lower quadrant. No free air. BONES/SOFT TISSUES: Diffuse osteopenia. No suspicious lytic or blastic lesi ons. No acute osseous abnormality. Degenerative changes of the visualized spin e. Partially seen right total hip arthroplasty. IMPRESSION: Limited serg luation of the area in question (right lower quadrant) described on the prior CT as enteric contrast has not reached the distal small bowel. Appendix is better visualized and dilated. There is redemonstration of inflammatory stran ding and wall thickening of the terminal ileum and cecum. Findings are concern ing for appendicitis. A few tiny foci of extraluminal air are again seen. Uncl ear if this is related to air from perforated appendicitis or the eroded lap b and. Superimposed ischemia would be difficult to exclude given bowel wall thic kening and reported clinical possibility, although evaluation is limited witho ut IV contrast. No portal venous gas identified. Erosion of lap band into the gastric lumen. Findings discussed with Dr. Cheng on 08/22/2018 at 12:20 AM. Signed by: DR. Hardy Murphy MD on 08/22/2018 12:33 AM Dictated By: HARDY MURPHY MD COPY TO: JUDITH CHENG MD CT CHEST [id number] 14:37:00 [place] [address] Patient Name: DUKE AUGUSTINE MR #: [id number] : 1945 Age/Sex: 73/F Req #: [id number] Adm Physician: ALONDRA MOREIRA MD Ordered by: JONNY MILLER MD Report #: [id number] Location: [facility] Room/Bed: [place] [address] Procedure: [id number] CT/CT CHEST WO Exam Date: 08/21/18 Exam Time: 1400 REPORT STATUS: Signed EXAM: CT Ch est without contrast. INDICATION: Pleura nodule on chest radiograph. COMPARISON: Chest radiograph 08/21/2018. TECHNIQUE: Chest was scanned uti lizing a multidetector helical scanner from the lung apex through the level of the adrenal glands without administration of IV contrast. Coronal and sagitta l reformations were obtained. Routine protocol was performed. IV CONTRAST: None. RADIATION DOSE: Total DLP: 420.6 mGy*cm Do se modulation, iterative reconstruction, and/or weight based adjustment of the mA/kV was utilized to reduce the radiation dose to as low as reasonably achie vable. COMPLICATIONS: None FINDINGS: LINES/ TUBES: Le ft lower lateral chest wall pacer device with single lead adjacent to the ster num. LUNGS AND AIRWAYS: Corresponding to the left upper lobe nodular opacit y noted on chest radiograph, there is a calcified granuloma measuring 4 mm on series 3, image 19. There is dependent mucous within the distal trachea and ri ght mainstem bronchus. The central airways are otherwise patent. There is depe ndent subsegmental atelectasis in the lower lungs. Mild biapical pleural-paren chymal opacity. PLEURA: The pleural spaces are clear. HEART AND MEDI ASTINUM: The thyroid gland is normal. No mediastinal, hilar or axillary lymph adenopathy. No cardiomegaly or pericardial effusion. Extensive coronary athero sclerosis. Mediastinal clips are present. Atherosclerotic calcifications of th e thoracic aorta and branch vessels. The esophagus is severely distended with substantial fluid in the mid and distal portions. UPPER ABDOMEN: Please re rey to the same day CT abdomen the abdomen and pelvis for further details. BONES/SOFT TISSUES: No acute osseous abnormality. No suspicious lytic or dinh stic lesions. Status post median sternotomy. IMPRESSION: Left upper lobe calcified granula corresponding to nodular opacity noted on same day chest ra diograph. Severely dilated esophagus with substantial fluid in the mid and distal portions, which may increase the risk for aspiration. Gastroesophageal reflux could be seen in the setting of gastric band. Suggest correlation with clinical history and endoscopy if clinically indicated. Signed by: Dr. Ivonne Ferris MD on 08/21/2018 2:47 PM Dictated By: SHARMILA FERRIS MD Electronica lly Signed By: SHARMILA FERRIS MD on 08/21/18 1447 Transcribed By: JEANETTE on 1447 COPY TO: JONNY MILLER MD CT ABDOMEN/PELVIS [id number] 12:14:00 [place] [address] Patient Name: DUKE AUGUSTINE MR #: [id number] : 1945 Age/Sex: 73/F Req #: [id number] Adm Physician: Ordered by: JONNY MILLER MD Report #: [id number] Location: ER Room/Bed: Procedure: [id number] CT /CT ABDOMEN/PELVIS WO Exam Date: 08/21/18 Exam Time: 1137 REPORT STATUS: Signed EXAM : CT Abdomen and Pelvis WITHOUT contrast INDICATION: Weakness, altered menta l status, status post fall. COMPARISON: Chest radiograph 08/21/2018. TE CHNIQUE: Abdomen and pelvis were scanned utilizing a multidetector helical sca nner from the lung base to the pubic symphysis without administration of IV co ntrast. Absence of intravenous contrast decreases sensitivity for detection of focal lesions and vascular pathology. Coronal and sagittal reformations were obtained. Routine protocol was performed. IV CONTRAST: None. ORAL CONTRAST: Water RADIATION DOSE: Total DLP: 70 3.8 mGy*cm Dose modulation, iterative reconstruction, and/or weight based a djustment of the mA/kV was utilized to reduce the radiation dose to as low as reasonably achievable. COMPLICATIONS: None FINDINGS: LINES and TUBES: There is a gastric band with the port in the right upper a nterior abdominal wall soft tissues. LOWER THORAX: There is linear subseg mental atelectasis at the lung bases. Coronary atherosclerosis. Partially seen left lateral chest wall AICD device. HEPATOBILIARY: No focal hepatic lesions. No biliary ductal dilation. GALLBLADDER: Mildly distended. No rad io-opaque stones or sludge. No wall thickening. SPLEEN: No splenomegaly. PANCREAS: No focal masses or ductal dilatation. ADRENALS: No adren al nodules KIDNEYS/URETERS: No hydronephrosis. No cystic or solid mass lesions. No stones. GI TRACT: Suboptimal evaluation of the bowel in the absence of IV and oral contrast. Streak artifact from right hip hardware limi ts evaluation of the sigmoid colon. There is colonic diverticulosis, most pron ounced in the sigmoid colon, without definite evidence of diverticulitis. Ther e is mild dilation of small bowel loops, measuring up to 3.4 cm proximally. No definite transition point. There is mild thickening of small bowel loops prox imally and thickening of the terminal ileum and possibly cecum. There is stran ding and free fluid within the right lower quadrant, incompletely evaluated du e to streak artifact. The appendix is not clearly identified. PELVIC ORG ANS/BLADDER: Limited evaluation due to streak artifact. The bladder is decompr essed. LYMPH NODES: No lymphadenopathy. VESSELS: There are extensive a therosclerotic calcifications in the aorta and branch vessels. PERITONEU M / RETROPERITONEUM: Small amount of ascites within the right lower quadrant. No free air. BONES/SOFT TISSUES: Diffuse osteopenia. No suspicious lytic or blastic lesions. No acute osseous abnormality. Degenerative changes of the vi sualized spine. Partially seen right total hip arthroplasty. IMPRESSION: Limited evaluation of the bowel secondary to lack of contrast and streak ar tifact from right hip arthroplasty. There is significant stranding within the right lower quadrant, of unclear etiology, and could reflect inflammatory iram nges of the small bowel or cecum. However appendix is not identified and appen dicitis is possible. Recommend repeat CT with oral contrast. There is mi ld thickening of small bowel loops, some of which are distended. No definite t ransition point. This could represent enteritis in the appropriate clinical se tting. No evidence of high-grade obstruction. No evidence of acute traumat ic abnormality within the abdomen or pelvis. Signed by: Dr. Sharmila Ferris MD on 08/21/2018 12:44 PM Dictated By: SHARMILA FERRIS MD 1244 Transcribed By: JEANETTE on 08/21/18 1244 COPY TO: JONNY MILLER MD Stool Occult [id number] 11:45:00* Test Item Value Reference Range Interpretation Comments Stool Occult Blood (test code = 2335-8) NEGATIVE NEGATIVE [facility] Occult [id number] 11:45:00* Test Item Value Reference Range Interpretation Comments Stool Occult Blood (test code = 2335-8) NEGATIVE NEGATIVE [facility] Occult [id number] 11:45:00* Test Item Value Reference Range Interpretation Comments Stool Occult Blood (test code = 2335-8) NE[facility]IVE [facility]IVE [facility] %2018-08-21 11:28:00* Test Item Value Reference Range Interpretation Comments Band Neutrophils % (test code = 764-1) 42 [facility]amy[facility] %2018-08-21 11:28:00* Test Item Value Reference Range Interpretation Comments Metamyelocytes % (test code = 740-1) 1 0-0 H [facility] Neut[facility]ils %2018-08-21 11:28:00* Test Item Value Reference Range Interpretation Comments Band Neutrophils % (test code = 764-1) 42 [facility] %2018-08-21 11:28:00* Test Item Value Reference Range Interpretation Comments Metamyelocytes % (test code = 740-1) 1 0-0 H [facility] %2018-08-21 11:28:00* Test Item Value Reference Range Interpretation Comments Band Neutrophils % (test code = 764-1) 42 [facility] %2018-08-21 11:28:00* Test Item Value Reference Range Interpretation Comments Metamyelocytes % (test code = 740-1) 1 0-0 H [facility] ([facility])2018-08-21 11:19:00 [place] [address] Patient Name: DUKE AUGUSTINE MR #: [id number] : 1945 Age/Sex: 73/F Req #: [id number] Adm Physician: Ordered by: JONNY MILLER MD Report #: [id number] Location: ER Room/Bed: Procedure: [id number] DX /CHEST SINGLE (PORTABLE) Exam Date: 08/21/18 Exam Ti me: 1020 REPORT STATUS: Signed EXAMINATION: Portable AP radiograph of the chest. COMPARISON: Chest radio graph 03/07/2018. CLINICAL HISTORY: Cough, weakness. DISCUSSION: L dylan/tubes: Implantable ICD with lead projecting just left of the sternum and generator in the left lower chest. Lungs: The lungs are moderately inflat ed. No evidence of pneumonia or pulmonary edema. A nodular opacity projects ov er the left upper lung. Mild central vascular congestion. Pleura: No ple ural effusion or pneumothorax. Heart and mediastinum: Unremarkable cardiom ediastinal silhouette. Bones and soft tissues: No acute bony abnormalities . Degenerative changes in the thoracic spine IMPRESSION: No acute rad iographic abnormality. Nodular opacity projects over the left upper lung. A chest CT is recommended for further evaluation. Signed by: Dr. Sharmila urbano MD on 08/21/2018 11:23 AM Dictated By: SHARMILA FERRIS MD Electronically Si gned By: SHARMILA FERRIS MD on 08/21/18 1123 Transcribed By: JEANETTE on 08/21/18 112 3 COPY TO: JONNY MILLER MD CT BRAIN [id number] 11:14:00 [place] [address] Patient Name: DUKE AUGUSTINE MR #: [id number] : 1945 Age/Sex: 73/F Req #: [id number] Adm Physician: Ordered by: JONNY MILLER MD Report #: [id number] Location: ER Room/Bed: Procedure: [id number] CT /CT BRAIN WO Exam Date: 08/21/18 Exam Time: 1040 REPORT STATUS: Signed Exam: Head CT without contrast History: Weakness, altered mental status, fall Comparison studies: None Technique: Axial images were obtained from the skull base to the vertex. Coronal and sagittal images reconstructed from the axial data. Dose modulation, iterative reconstruction, and/or weight based adjustment of the mA/kV was utilized to reduce the radiation dose to as low as reasonably achievable. Radiation dose: Total DLP: 921 mGy*cm. Estimated effec tive dose: DLP x 0.015 Intravenous contrast: None Findings: Scalp: No abnormalities. Bones: No fractures, blastic or lytic lesions. Brain sauecda lci: Appropriate for age. Ventricles: Mild compensatory dilatation of the late ral and third ventricles. No hydrocephalus. Extra-axial spaces: No masses, n o fluid collection. Parenchyma: No mass, acute hemorrhage or acute ramu ical vascular insults. A few scattered hypodensities in the supratentorial whi te matter are nonspecific but most compatible with chronic small vessel ischem ic changes. Sellar/suprasellar region: No abnormalities. Craniocervical junction: Patent foramen magnum. No Chiari one malformation. Incidental fin dings: Atherosclerotic calcifications in the carotid siphons and in the right intradural vertebral artery. IMPRESSION: 1. No acute abnormaliti es. 2. Mild chronic microvascular ischemic changes. Signed by: Dr. Baldomero Palm M.D. on 08/21/2018 11:19 AM Dictated By: BALDOMERO PALM MD Stephanie ctronically Signed By: BALDOMERO PALM MD on 08/21/18 1119 Transcribed By: RAMIRO VILLANUEVA on 08/21/18 1119 COPY TO: JONNY MILLER MD Influenza Virus Types A,B [id number] 10:52:00* Test Item Value Reference Range Interpretation Comments Influenza Virus Types A,B Antigen (test code = 11306-6) NEGATIVE NEGATIVE [facility] Virus Types A,B Antigen 2018-08-21 10:52:00* Test Item Value Reference Range Interpretation Comments Influenza Virus Types A,B Antigen (test code = 30813-9) NEGATIVE NEGATIVE [facility] Virus Types A,B Antigen 2018-08-21 10:52:00* Test Item Value Reference Range Interpretation Comments Influenza Virus Types A,B Antigen (test code = 23624-0) NEGATIVE NEGATIVE [facility] SouthProthrombin [id number] 10:34:00* Test Item Value Reference Range Interpretation Comments Prothrombin Time (test code = 5902-2) 13.8 11.9-14.5 [facility] South[facility]thromb Time International Ratio 2018-08-21 10:34:00* Test Item Value Reference Range Interpretation Comments Prothromb Time International Ratio (test code = 6301-6) 1.01 Oral Anticoagulant Therapy INR Values:1. Low Intensity Therapy 1.5 - 2.02 . Moderate Intensity Therapy 2.0 - 3.03. High Intensity Therapy(1) 2.5 - 3. 54. High Intensity Therapy(2) 3.0 - 4.05. Panic Value INR > 5.0 [facility] South[facility] Partial Thromboplast Time 2018-08-21 10:34:00* Test Item Value Reference Range Interpretation Comments Activated Partial Thromboplast Time (test code = 70864-3) 20.0 23.8-35.5 L [facility] SouthProthrombin [id number] 10:34:00* Test Item Value Reference Range Interpretation Comments Prothrombin Time (test code = 5902-2) 13.8 11.9-14.5 [facility] South[facility]th[facility] Time International Ratio 2018-08-21 10:34:00* Test Item Value Reference Range Interpretation Comments Prothromb Time International Ratio (test code = 6301-6) 1.01 Oral Anticoagulant Therapy INR Values:1. Low Intensity Therapy 1.5 - 2.02 . Moderate Intensity Therapy 2.0 - 3.03. High Intensity Therapy(1) 2.5 - 3. 54. High Intensity Therapy(2) 3.0 - 4.05. Panic Value INR > 5.0 [facility] Partial Thromboplast Time 2018-08-21 10:34:00* Test Item Value Reference Range Interpretation Comments Activated Partial Thromboplast Time (test code = 67165-6) 20.0 23.8-35.5 L [facility] SouthProthrombin [id number] 10:34:00* Test Item Value Reference Range Interpretation Comments Prothrombin Time (test code = 5902-2) 13.8 11.9-14.5 [facility] Time International Ratio 2018-08-21 10:34:00* Test Item Value Reference Range Interpretation Comments Prothromb Time International Ratio (test code = 6301-6) 1.01 Oral Anticoagulant Therapy INR Values:1. Low Intensity Therapy 1.5 - 2.02 . Moderate Intensity Therapy 2.0 - 3.03. High Intensity Therapy(1) 2.5 - 3. 54. High Intensity Therapy(2) 3.0 - 4.05. Panic Value INR > 5.0 [facility] Partial Thromboplast Time 2018-08-21 10:34:00* Test Item Value Reference Range Interpretation Comments Activated Partial Thromboplast Time (test code = 99199-4) 20.0 23.8-35.5 L [facility] SouthCHEST 2 [id number] 15:12:00 [facility] [address] [place] [address] Patient Name: DUKE AUGUSTINE MR #: [id number] : 1945 Age/Sex: 72/F Req #: [id number] Adm Physician: Ordered by: BALDOMERO WELSH MD Report #: [id number] Location: OR Room/Bed: Procedure: [id number] DX/CHEST 2 VIEWS Exam Date: 03/07/18 Exam Time: 8765 REPORT STATUS: Signed EXAMINATION: PA and lateral views of the chest. COMPARISON: None CLINICAL HISTORY: Preoperative evaluation for hernia removal DISCUSSI ON: Lines/tubes: Sternotomy wires. Single lead ICD with the lead projectin g left of the generator in the left lower chest. Lungs: The lungs are we ll inflated and clear. No pneumonia or pulmonary edema. Pleura: No pleural effusion or pneumothorax. Heart and mediastinum: Mild cardiomegaly B ones and soft tissues: No acute bony abnormalities. IMPRESSION: No ac [place] cardiopulmonary abnormalities. Signed by: Dr. Tacos roberts M.D. on 03/07/2018 3:14 PM Dictated By: TACOS CADET MD Electronic ally Signed By: TACOS CADET MD on 03/07/181513 Transcribed By: JEANETTE on 03/07/181513 COPY TO: BALDOMERO WELSH MD CHEST SINGLE (PORTABLE) [place] [address] Patient Name: DUKE AUGUSTINE MR #: [id number] : 1945 Age/Sex: 71/F Req #: [id number] Adm Physician : ALONDRA MOREIRA MD Ordered by: JORGE MARX MD Report #: [id number] Loca tion: MED/SURG2 Room/Bed: [facility] Procedure: [id number] DX/CHEST SINGLE (PORTABLE) Exam Date: 02/10/17 Exam Time: 1005 REPORT STATUS: Signed PROCEDURE: A single AP view of the c hest. COMPARISON: [facility], DX, CHEST SINGLE (PORTABLE), 02/09/2017, 11:26. INDICATIONS: PNEUMONIA FINDINGS: See impr ession. IMPRESSION: 1. stable left-sided AICD. 2. Patchy opacity in the left base may represent atelectasis. No consolidation or effusion. 3 . Stable enlargement of the cardiac silhouette and minimal central venous con gestion. 4. Preliminary report provided by Dr. Stoll 02/10/2017 at 1050 hrs. Ronald Vallejo M.D. Dictated by: Ronald Vallejo M.D. on 02/10 at 19:25 Electronically approved by: Ronald Vallejo M.D. on at 19:25 Dictated By: RONALD VALLEJO MD Electronicall y Signed By: RONALD VALLEJO MD on 02/10/171924 Transcribed By: NITA on 1924 COPY TO: JORGE MARX MD CHEST SINGLE (PORTABLE) [place] [address] Patient Name: DUKE AUGUSTINE MR #: [id number] : 1945 Age/Sex: 71/F Req #: [id number] Adm Physician: ALONDRA MOREIRA MD Ordered by: JORGE MARX MD Report #: [id number] Loca tion: MED/SURG2 Room/Bed: [facility] Procedure: [id number] DX/CHEST SINGLE (PORTABLE) Exam Date: 02/09/17 Exam Time: 1130 REPORT STATUS: Signed PROCEDURE: A single AP view of the c hest. COMPARISON: [facility], DX, CHEST SINGLE (PORTABLE), 02/03/2017, 13:49. [facility], DX, CHEST 2 VIEWS, 02/06/2017, 8: 52. INDICATIONS: CONGESTIVE HEART FAILURE, HEAVY BREATHING FIN DINGS: Lines/tubes: None. Lungs: The lungs are well inflated. Previous ly visualized right upper lobe opacity is not seen in the current exam and li jane represents summation of soft tissue shadows. There is no evidence of pne umonia or pulmonary edema. Pleura: There is no pleural effusion or pne umothorax. Heart and mediastinum: Enlarged cardiac silhouette, stable. Min imal central pulmonary venous congestion, improved since 02/03 and minimally increased since 02/06. Bones: No acute bony abnormality. IMPRESSI ON: 1. stable enlarged cardiac silhouette with minimal central pulmonary venous congestion. No consolidation or overt pulmonary edema. 2. Preliminar y report provided by Dr. Vallejo February 09, 2017 at 1205 hour Ahmet Vallejo M.D. Dictated by: Ronald Vallejo M.D. on 02/10/2017 at 17 :04 Electronically approved by: Ronald Vallejo M.D. on 02/10/2017 at 17:04 Dictated By: RONALD VALLEJO MD 03 Transcribed By: NITA on 02/10/171703 COPY TO: JORGE MARX MD CHEST 2 VIEWS [place] [address] Patient Name: DUKE AUGUSTINE MR #: [id number] : 1945 Age/Sex: 71/F Req #: [id number] Adm Physician: ALONDRA MOREIRA MD Ordered by: JORGE MARX MD Report #: [id number] Location: [facility] Room/Bed: [place] [address] Procedure: [id number] DX/CHEST 2 VIEWS Exam Date: 02/06/17 Exam Time: 0852 REPORT STATUS: Signed EXAM: CHEST 2 VIEWS, PA and lateral DATE: 02/06 8:48 AM Time stamp on exam: 0852 hours INDICATION: CHF, pneumonia COM PARISON: None FINDINGS: LINES/TUBES: Implantable ICD with lead projecting just left of the sternum and generator in the left lower chest. LUNGS: M ild linear bibasilar atelectasis PLEURA: No effusions or pneumothorax. HEART AND MEDIASTINUM: Normal size and contour. Stable median sternotomy wires and mediastinal clips. BONES AND SOFT TISSUES: No acute findings. IMPRESSION: Mild linear bibasilar atelectasis. Signed by: Dr. Tiffanie Lau M.D. on 02/06/2017 10:59 AM Dictated By: TIFFANIE LAU MD E lectronically Signed By: TIFFANIE LAU MD on 02/06/17 105 Transcribed By: RAMIRO VILLANUEVA on 02/06/17 105 COPY TO: JORGE MARX MD CHEST SINGLE (PORTABLE) [place] [address] Patient Name: DUKE AUGUSTINE MR #: [id number] : 1945 Age/Sex: 71/F Req #: [id number] Adm Physician: ALONDRA MOREIRA MD Ordered by: ALONDRA MOREIRA MD Report #: [id number] Location: ICU Room/Bed: ICU [facility] Procedure: [id number] D X/CHEST SINGLE (PORTABLE) Exam Date: 02/03/17 Exam T haider: 1350 REPORT STATUS: Signed PROCEDURE: A single AP view of the est. COMPARISON: Chest portable 02/02/2017. INDICATIONS: FLUID OVER LOAD FINDINGS: Lines/tubes: Left chest cardiac device is present wit h the tip projecting over the expected region of the main pulmonary artery. Lungs: No parenchymal mass. Bibasilar atelectasis. Interval resolution o f the airspace opacity in the right upper lobe. Pleura: There is no pleur al effusion or pneumothorax. Heart and mediastinum: The heart and the med iastinum are unremarkable. Bones: No acute bony abnormality. Median burnham otomy wires. Degenerative changes of the thoracic spine. IMPRESSION: No acute radiographic abnormality. Dictated by: Kevon Silva M.D. on 02/03/2017 at 14:42 Electronically approved by: Kevon Silva M.D. on 01/13 at 14:42 Dictated By: KEVON SILVA MD Electronically Ally d By: KEVON SILVA MD on 02/03/17 144 Transcribed By: NITA on 02/03/17 1442 COPY TO: ALONDRA MOREIRA MD CHEST SINGLE (PORTABLE) [place] [address] Patient Name: DUKE AUGUSTINE MR #: [id number] : 1945 Age/Sex: 71/F Req #: [id number] Adm Physician: Ordered by: ALEXIS SERRANO MD Report #: [id number] Location: ER Room/Bed: Procedure: [id number] DX/CHEST SINGLE (PORTABLE) E xam Date: 02/02/17 Exam Time: 1625 REPORT STATU S: Signed PROCEDURE: A single AP view of the chest. COMPARISON: [facility], DX, CHEST SINGLE (PORTABLE), 01/22/2017, 10:15. GEOVANNI CATIONS: SHORTNESS OF BREATH FINDINGS: Patient is rotated on the sabrina m. Lead again projected on the left mid hemithorax medially, unchanged in pos ition. Lines/tubes: None. Lungs: The lungs are well inflated and c lear. Bilateral pulmonary venous congestion. Patchy density in the right uppe r lobe may be due to rotation and summation of shadows, however, cannot exclu de developing pneumonia. Pleura: There is no pleural effusion or pneum othorax. Heart and mediastinum: The cardiac silhouette is moderately enla rged. Median sternotomy wires again observed. Bones: No acute bony abn ormality. IMPRESSION: 1. Bilateral pulmonary venous congestion. 2. Possible developing pneumonia in the right upper lobe. Virgen Webster M.D. Dictated by: Virgen Webster M.D. on 02/02/2017 a t 17:13 Electronically approved by: Virgen Webster M.D. on 017 at 17:13 Dictated By: BOOKER WEBSTER MD, MD 12 Transcribed By: NITA on 01/13 COPY TO: ALEXIS SERRANO MD
--- NOTE | 2020-04-02 18:10 | Diagnostic Imaging Report ---
EXAMINATION: CHEST XRAY LINE PLACEMENT INDICATION: PICC PLACEMENT COMPARISON: Multiple prior chest radiograph including most recent on 03/16/2020. FINDINGS: TUBES and LINES: Interval placement of right PICC which terminates in the right atrium. No interval change in right chest wall ICD. LUNGS: Normal lung volumes. There is bilateral perihilar and diffuse interstitial prominence. No consolidations. PLEURA: No pleural effusion or pneumothorax. HEART AND MEDIASTINUM: The cardiomediastinal silhouette is mildly enlarged. BONES AND SOFT TISSUES: Degenerative changes in the spine and shoulders. Soft tissues are unremarkable. UPPER ABDOMEN: No free air under the diaphragm. IMPRESSION: 1. Right PICC which terminates in the right atrium. 2. Cardiomegaly with interstitial pulmonary edema. Signed by: Enid West MD on 04/02/2020 6:07 PM
--- NOTE | 2020-04-02 18:40 | Diagnostic Imaging Report ---
EXAMINATION: CHEST SINGLE (PORTABLE) INDICATION:eval picc position after being pulled back COMPARISON: Same day radiograph. FINDINGS/impression: Interval repositioning of the right PICC line which now terminates in the atriocaval junction. No interval change in radiographic appearance of the lungs. Signed by: Enid West MD on 04/02/2020 6:37 PM
[2020-04-02 18:50] VITALS: BP 156/71
== END 2020-04-02 18:53 | disposition home or self-care (01) ==
LOC: ER 14:58
DX: Z45.2 Encounter for adjustment and management of vascular access device (principal); I12.0 Hypertensive chronic kidney disease with stage 5 chronic kidney disease or end stage renal disease; E11.22 Type 2 diabetes mellitus with diabetic chronic kidney disease; N18.6 End stage renal disease; Z79.4 Long term (current) use of insulin; I50.9 Heart failure, unspecified
CPT/HCPCS: 36569; 36584; 71045; 99283

== ENCOUNTER 2020-04-14 21:03 | Emergency (ER) | payer MEDICARE ==
[~2020-04-14] VITALS: Ht 177.8 cm; Wt 85.3 kg
[2020-04-14 23:54] VITALS: BP 136/61
== END 2020-04-15 00:05 | disposition home or self-care (01) ==
LOC: ER 21:37
DX: Z45.2 Encounter for adjustment and management of vascular access device (principal); I12.0 Hypertensive chronic kidney disease with stage 5 chronic kidney disease or end stage renal disease; E11.22 Type 2 diabetes mellitus with diabetic chronic kidney disease; N18.6 End stage renal disease; E78.5 Hyperlipidemia, unspecified; I50.9 Heart failure, unspecified; F32.9 Major depressive disorder, single episode, unspecified
CPT/HCPCS: 36569; 71045; 99283

== ENCOUNTER 2020-08-27 23:07 | Emergency (ER) | payer MEDICARE ==
[~2020-08-27] VITALS: Ht 177.8 cm; Wt 85.3 kg
[2020-08-27] MEDS ORDERED: PIPERACILLIN/TAZO 2.25 GM 50 ML IV ONE (23:30)
[2020-08-27] MEDS ORDERED: ACETAMINOPHEN 325 MG TAB PO ONE (23:30)
[2020-08-27] MEDS ORDERED: PIPERACILLIN/TAZOBACTAM SOD 2.25 GM VIAL ONE (23:53)
[2020-08-27] MEDS ORDERED: SODIUM CHLORIDE 0.9% 50ML 50 ML ONE (23:53)
[2020-08-28 00:06] LABS: BASOPHILS # (AUTO) 0.1 (0.0-0.1); BASOPHILS % 0.3 % (0.0-1.0); EOSINOPHILS # (AUTO) 0.1 (0.0-0.4); EOSINOPHILS % 0.3 % (0.0-6.0); HEMATOCRIT 29.2 % (34.2-44.1); HEMOGLOBIN 9.2 g/dL (12.0-16.0); LYMPHOCYTES # (AUTO) 1.6 (1.0-3.2); LYMPHOCYTES % 10.8 % (18.0-39.1); MEAN CORPUSCULAR HEMOGLOBIN 29.1 pg (28-32); MEAN CORPUSCULAR HGB CONC 31.5 g/dL (31-35); MEAN CORPUSCULAR VOLUME 92.4 fL (81-99); MONOCYTES % 6.8 % (4.4-11.3); NEUTROPHILS # (AUTO) 12.3 (2.1-6.9); NEUTROPHILS % 81.3 % (38.7-80.0); PLATELET COUNT 191 x10e3/uL (140-360); RED BLOOD COUNT 3.16 x10e6/uL (3.6-5.1); RED CELL DISTRIBUTION WIDTH 17.6 % (11.7-14.4)
[2020-08-28 00:51] LABS: ALBUMIN 3.2 g/dL (3.5-5.0); ALBUMIN/GLOBULIN RATIO 0.9 (0.8-2.0); ANION GAP 14.8 mmol/L (8-16); CALCIUM 8.9 mg/dL (8.4-10.2); CREATININE, SERUM 1.66 mg/dL (0.57-1.11); POTASSIUM 4.8 mmol/L (3.5-5.1)
[2020-08-28 00:53] LABS: CREATINE KINASE MB 0.4 ng/mL (0-5.0)
[2020-08-28 01:06] LABS: CLARITY,URINE CLEAR (CLEAR); COLOR,URINE YELLOW (YELLOW); KETONES,URINE NEGATIVE (NEGATIVE); LEUKOCYTE ESTERASE ,URINE NEGATIVE (NEGATIVE); NITRITE,URINE NEGATIVE (NEGATIVE); PROTEIN,URINE DIPSTICK >=300 (NEGATIVE); URINE UROBILINOGEN 0.2 mg/dL (0.2 - 1)
[2020-08-28 01:12] LABS: BACTERIA,URINE FEW /HPF; EPITHELIAL CELLS,URINE FEW /LPF
== END 2020-08-28 05:37 | disposition other institution (70) ==
LOC: ER 23:22
DX: T81.40XA Infection following a procedure, unspecified, initial encounter (principal); R50.9 Fever, unspecified; R53.1 Weakness; R94.31 Abnormal electrocardiogram [ECG] [EKG]; I12.0 Hypertensive chronic kidney disease with stage 5 chronic kidney disease or end stage renal disease; E11.22 Type 2 diabetes mellitus with diabetic chronic kidney disease; N18.6 End stage renal disease; I50.9 Heart failure, unspecified; E78.5 Hyperlipidemia, unspecified; Z20.822 Contact with and (suspected) exposure to COVID-19
CPT/HCPCS: 36415; 71045; 80053; 81001; 82550; 82553; 83605; 84484; 85025; 87040; 87086; 93005; 99285; J2543 ×2; U0002

== ENCOUNTER 2021-04-05 18:42 | Emergency (ER) | payer MEDICARE ==
[~2021-04-05] VITALS: Ht 177.8 cm; Wt 81.6 kg
[2021-04-05] MEDS ORDERED: ASPIRIN 81 MG CHEW TAB PO ONE (19:00)
[2021-04-05 19:19] LABS: BASOPHILS % 0.4 % (0.0-1.0); EOSINOPHILS # (AUTO) 0.1 (0.0-0.4); EOSINOPHILS % 0.5 % (0.0-6.0); HEMATOCRIT 34.7 % (34.2-44.1); LYMPHOCYTES # (AUTO) 1.7 (1.0-3.2); LYMPHOCYTES % 16.7 % (18.0-39.1); MEAN CORPUSCULAR HEMOGLOBIN 31.4 pg (28-32); MEAN CORPUSCULAR HGB CONC 31.7 g/dL (31-35); MEAN CORPUSCULAR VOLUME 99.1 fL (81-99); MONOCYTES # (AUTO) 0.7 (0.2-0.8); MONOCYTES % 7.1 % (4.4-11.3); NEUTROPHILS # (AUTO) 7.8 (2.1-6.9); NEUTROPHILS % 74.7 % (38.7-80.0); PLATELET COUNT 221 x10e3/uL (140-360); RED CELL DISTRIBUTION WIDTH 13.9 % (11.7-14.4)
[2021-04-05 20:11] LABS: ALBUMIN 3.9 g/dL (3.5-5.0); ANION GAP 19.5 mmol/L (8-16); CALCIUM 10.1 mg/dL (8.4-10.2); CREATININE, SERUM 2.97 mg/dL (0.57-1.11); POTASSIUM 4.5 mmol/L (3.5-5.1)
[2021-04-05 21:23] VITALS: BP 133/75
== END 2021-04-05 21:28 | disposition home or self-care (01) ==
LOC: ER 18:59
DX: R06.00 Dyspnea, unspecified (principal); I50.9 Heart failure, unspecified; N18.9 Chronic kidney disease, unspecified
CPT/HCPCS: 36415; 71045; 80053; 82550; 82553; 83880; 84484; 85025; 93005; 99284

== ENCOUNTER 2021-06-04 22:38 | Inpatient (IN) | payer MEDICARE ==
[~2021-06-04] VITALS: Ht 177.8 cm; Wt 81.6 kg
[2021-06-04] MEDS ORDERED: SODIUM CHLORIDE 0.9% 1000ML 1,000 ML ONE (23:45)
[2021-06-05 00:17] LABS: BASOPHILS # (AUTO) 0.1 (0.0-0.1); BASOPHILS % 0.5 % (0.0-1.0); EOSINOPHILS % 0.1 % (0.0-6.0); HEMATOCRIT 22.6 % (34.2-44.1); HEMOGLOBIN 7.1 g/dL (12.0-16.0); LYMPHOCYTES # (AUTO) 2.3 (1.0-3.2); LYMPHOCYTES % 23.3 % (18.0-39.1); MEAN CORPUSCULAR HEMOGLOBIN 31.4 pg (28-32); MEAN CORPUSCULAR HGB CONC 31.4 g/dL (31-35); MONOCYTES # (AUTO) 0.5 (0.2-0.8); MONOCYTES % 5.3 % (4.4-11.3); NEUTROPHILS # (AUTO) 6.8 (2.1-6.9); NEUTROPHILS % 70.4 % (38.7-80.0); PLATELET COUNT 199 x10e3/uL (140-360); RED BLOOD COUNT 2.26 x10e6/uL (3.6-5.1); RED CELL DISTRIBUTION WIDTH 13.3 % (11.7-14.4)
[2021-06-05 00:43] LABS: ALBUMIN 3.3 g/dL (3.5-5.0); ALKALINE PHOSPHATASE 36 IU/L (40-150); ANION GAP 21.4 mmol/L (8-16); BLOOD UREA NITROGEN 121 mg/dL (7-26); BUN/CREATININE RATIO 35 (6-25); CALCIUM 8.6 mg/dL (8.4-10.2); CARBON DIOXIDE 24 mmol/L (22-29); CHLORIDE 96 mmol/L (98-107); CREATININE, SERUM 3.43 mg/dL (0.57-1.11); EST GLOMERULAR FILTRATION RATE 13 ML/MIN (60-); GLUCOSE 296 mg/dL (74-118); POTASSIUM 4.4 mmol/L (3.5-5.1); SODIUM 137 mmol/L (136-145)
[2021-06-05 00:44] LABS: ALANINE AMINOTRANSFERASE < 6 IU/L (0-55)
[2021-06-05] MEDS ORDERED: SODIUM CHLORIDE 0.9% 250ML 250 ML IV ONE ×2 (01:00→11:45)
[2021-06-05] MEDS: Pantoprazole IV 40 MG in SODIUM CHLORIDE 0.9% 50ML 50 ML IV SCH ×5 (01:14→22:30)
[2021-06-05] MEDS ORDERED: SODIUM CHLORIDE 0.9% 250ML 250 ML ONE ×2 (04:23→16:09)
[2021-06-05] MEDS ORDERED: ONDANSETRON HCL INJ 2MG/ML 2ML 2 MG/ML VIAL IV STA (04:33)
[2021-06-05] MEDS ORDERED: Morphine 2mg Syringe 2 MG/ML SYR IV ONE ×2 (04:45)
[2021-06-05 08:28] VITALS: BP 118/66
[2021-06-05] MEDS ORDERED: INSULIN LISPRO 12 UNIT SQ SCH (11:45)
[2021-06-05] MEDS ORDERED: NON-FORMULARY MEDICATION (Insulin Detemir (Levemir) 40 UNITS) SQ PRN (11:45)
[2021-06-05] MEDS ORDERED: HYDROCODONE/APAP 10MG-325MG TAB PO PRN (11:45)
[2021-06-05 12:10] VITALS: BP 110/54
[2021-06-05 12:35] LABS: % IRON SATURATION 86 % (15-50); IRON 314 ug/dL (50-170); TOTAL IRON BINDING CAPACITY 367 ug/dL (261-478); TRANSFERRIN 262 mg/dL (180-382)
[2021-06-05 12:54] VITALS: BP 110/54
[2021-06-05 13:04] VITALS: BP 110/54
[2021-06-05] MEDS: SODIUM CHLORIDE 0.9% 1000ML 1,000 ML IV SCH ×2 (13:34→21:15)
[2021-06-05] MEDS ORDERED: SODIUM CHLORIDE 0.9% 50ML 50 ML ONE (13:47)
[2021-06-05] MEDS: GABAPENTIN 300 MG CAP PO SCH ×2 (15:00→21:15)
[2021-06-05] MEDS: CLONIDINE HCL 0.2 MG TAB PO SCH (17:00)
[2021-06-05] MEDS: HYDROCODONE/APAP 10MG-325MG TAB PO PRN (18:20)
[2021-06-05] MEDS: BUMETANIDE 1 MG TAB PO SCH (18:22)
[2021-06-05] MEDS: APIXAB 2.5 MG TABLET PO SCH (18:23)
[2021-06-05 18:24] VITALS: BP 123/52
[2021-06-05 20:00] VITALS: BP 119/53
[2021-06-05] MEDS: LIDOCAINE 4% PATCH TP SCH (21:15)
[2021-06-06] VITALS (9 sets, daily range): BP systolic 105–126; BP diastolic 42–55
[2021-06-06] MEDS ORDERED: TOPROL XL25 MG PO (03:24)
[2021-06-06] MEDS: Pantoprazole IV 40 MG in SODIUM CHLORIDE 0.9% 50ML 50 ML IV SCH ×6 (03:25→23:30)
[2021-06-06] MEDS ORDERED: TRICOR48 MG PO (03:26)
[2021-06-06 06:00] LABS: ANION GAP 14.7 mmol/L (8-16); CALCIUM 8.6 mg/dL (8.4-10.2); CREATININE, SERUM 2.86 mg/dL (0.57-1.11); POTASSIUM 3.7 mmol/L (3.5-5.1)
[2021-06-06 06:23] LABS: BASOPHILS % 0.5 % (0.0-1.0); EOSINOPHILS # (AUTO) 0.2 (0.0-0.4); EOSINOPHILS % 3.2 % (0.0-6.0); HEMATOCRIT 24.4 % (34.2-44.1); HEMOGLOBIN 7.7 g/dL (12.0-16.0); LYMPHOCYTES # (AUTO) 1.5 (1.0-3.2); MEAN CORPUSCULAR HGB CONC 31.6 g/dL (31-35); MEAN CORPUSCULAR VOLUME 98.4 fL (81-99); MONOCYTES # (AUTO) 0.5 (0.2-0.8); MONOCYTES % 8.3 % (4.4-11.3); NEUTROPHILS # (AUTO) 3.9 (2.1-6.9); NEUTROPHILS % 63.7 % (38.7-80.0); RED BLOOD COUNT 2.48 x10e6/uL (3.6-5.1); RED CELL DISTRIBUTION WIDTH 15.9 % (11.7-14.4)
[2021-06-06 06:28] LABS: PLATELET COUNT 123 x10e3/uL (140-360)
[2021-06-06] MEDS: SODIUM CHLORIDE 0.9% 1000ML 1,000 ML IV SCH ×3 (07:18→21:00)
[2021-06-06] MEDS: GABAPENTIN 300 MG CAP PO SCH ×3 (08:31→21:14)
[2021-06-06] MEDS: CLONIDINE HCL 0.2 MG TAB PO SCH ×2 (08:31→16:33)
[2021-06-06] MEDS: APIXAB 2.5 MG TABLET PO SCH ×2 (08:31→16:44)
[2021-06-06] MEDS: BUMETANIDE 1 MG TAB PO SCH (08:31)
[2021-06-06] MEDS: DOCUSATE SODIUM 100 MG CAP PO SCH (09:32)
[2021-06-06] MEDS: ASCORBIC ACID 500 MG TAB PO SCH (09:32)
[2021-06-06] MEDS: FLUOXETINE HCL 20 MG CAP PO SCH (09:32)
[2021-06-06] MEDS: ASPIRIN 81 MG CHEW TAB PO SCH (09:32)
[2021-06-06] MEDS: AMLODIPINE BESYLATE 5 MG TAB PO SCH (09:32)
[2021-06-06] MEDS: FERROUS SULFATE 325 MG TAB PO SCH (09:32)
[2021-06-06] MEDS: NIACIN 500 MG TABSR PO SCH (09:32)
[2021-06-06] MEDS: LIDOCAINE 4% PATCH TP SCH (09:32)
[2021-06-06 09:33] LABS: INR 1.1; PROTHROMBIN TIME 15.1 seconds (11.9-14.5)
[2021-06-06] MEDS ORDERED: PROPOFOL IV EMULSION 10 MG/ML 20 ML VIAL ONE (13:36)
[2021-06-06] MEDS ORDERED: LIDOCAINE HCL 2% LOCAL INJ 5 ML SDV VIAL INJ ONE (13:36)
[2021-06-06] MEDS: HYDROCODONE/APAP 10MG-325MG TAB PO PRN (17:40)
[2021-06-07] VITALS (8 sets, daily range): BP systolic 102–124; BP diastolic 49–54
[2021-06-07] MEDS: Pantoprazole IV 40 MG in SODIUM CHLORIDE 0.9% 50ML 50 ML IV SCH ×3 (02:24→08:57)
[2021-06-07] MEDS: SODIUM CHLORIDE 0.9% 1000ML 1,000 ML IV SCH (04:30)
[2021-06-07 05:53] LABS: BASOPHILS % 0.4 % (0.0-1.0); EOSINOPHILS # (AUTO) 0.2 (0.0-0.4); EOSINOPHILS % 4.6 % (0.0-6.0); HEMATOCRIT 24.1 % (34.2-44.1); HEMOGLOBIN 7.4 g/dL (12.0-16.0); LYMPHOCYTES # (AUTO) 1.3 (1.0-3.2); LYMPHOCYTES % 25.6 % (18.0-39.1); MEAN CORPUSCULAR HEMOGLOBIN 30.6 pg (28-32); MEAN CORPUSCULAR HGB CONC 30.7 g/dL (31-35); MEAN CORPUSCULAR VOLUME 99.6 fL (81-99); MONOCYTES # (AUTO) 0.5 (0.2-0.8); NEUTROPHILS # (AUTO) 3.2 (2.1-6.9); NEUTROPHILS % 60.2 % (38.7-80.0); PLATELET COUNT 122 x10e3/uL (140-360); RED BLOOD COUNT 2.42 x10e6/uL (3.6-5.1); RED CELL DISTRIBUTION WIDTH 15.3 % (11.7-14.4)
[2021-06-07 06:11] LABS: ANION GAP 12.6 mmol/L (8-16); CALCIUM 8.8 mg/dL (8.4-10.2); CREATININE, SERUM 2.53 mg/dL (0.57-1.11); POTASSIUM 3.6 mmol/L (3.5-5.1)
[2021-06-07] MEDS: DOCUSATE SODIUM 100 MG CAP PO SCH (08:42)
[2021-06-07] MEDS: APIXAB 2.5 MG TABLET PO SCH (08:43)
[2021-06-07] MEDS: FERROUS SULFATE 325 MG TAB PO SCH (08:43)
[2021-06-07] MEDS: ASPIRIN 81 MG CHEW TAB PO SCH (08:43)
[2021-06-07] MEDS: CLONIDINE HCL 0.2 MG TAB PO SCH ×2 (08:44→17:00)
[2021-06-07] MEDS: ASCORBIC ACID 500 MG TAB PO SCH (08:45)
[2021-06-07] MEDS: FLUOXETINE HCL 20 MG CAP PO SCH (08:45)
[2021-06-07] MEDS: AMLODIPINE BESYLATE 5 MG TAB PO SCH (08:46)
[2021-06-07] MEDS: GABAPENTIN 300 MG CAP PO SCH ×3 (08:46→21:42)
[2021-06-07] MEDS: NIACIN 500 MG TABSR PO SCH (08:53)
[2021-06-07] MEDS: LIDOCAINE 4% PATCH TP SCH (08:53)
[2021-06-07] MEDS: HYDROCODONE/APAP 10MG-325MG TAB PO PRN ×2 (08:53→23:00)
[2021-06-08] VITALS (8 sets, daily range): BP systolic 101–112; BP diastolic 48–60
[2021-06-08 06:17] LABS: BASOPHILS % 0.7 % (0.0-1.0); EOSINOPHILS # (AUTO) 0.2 (0.0-0.4); EOSINOPHILS % 5.1 % (0.0-6.0); HEMATOCRIT 22.1 % (34.2-44.1); LYMPHOCYTES # (AUTO) 1.5 (1.0-3.2); LYMPHOCYTES % 32.9 % (18.0-39.1); MEAN CORPUSCULAR HEMOGLOBIN 31.4 pg (28-32); MEAN CORPUSCULAR HGB CONC 31.2 g/dL (31-35); MEAN CORPUSCULAR VOLUME 100.5 fL (81-99); MONOCYTES # (AUTO) 0.4 (0.2-0.8); MONOCYTES % 8.7 % (4.4-11.3); NEUTROPHILS # (AUTO) 2.3 (2.1-6.9); NEUTROPHILS % 52.4 % (38.7-80.0); PLATELET COUNT 129 x10e3/uL (140-360); RED CELL DISTRIBUTION WIDTH 15.2 % (11.7-14.4)
[2021-06-08 06:42] LABS: ALBUMIN 2.8 g/dL (3.5-5.0); ALBUMIN/GLOBULIN RATIO 1.1 (0.8-2.0); ANION GAP 10.8 mmol/L (8-16); CALCIUM 8.6 mg/dL (8.4-10.2); CREATININE, SERUM 2.19 mg/dL (0.57-1.11); POTASSIUM 3.8 mmol/L (3.5-5.1)
[2021-06-08] MEDS: PANTOPRAZOLE SOD 40 MG TABEC PO SCH (08:22)
[2021-06-08] MEDS: ASCORBIC ACID 500 MG TAB PO SCH (08:24)
[2021-06-08] MEDS: NIACIN 500 MG TABSR PO SCH (08:24)
[2021-06-08] MEDS: DOCUSATE SODIUM 100 MG CAP PO SCH (08:24)
[2021-06-08] MEDS: FLUOXETINE HCL 20 MG CAP PO SCH (08:25)
[2021-06-08] MEDS: GABAPENTIN 300 MG CAP PO SCH ×3 (08:25→20:14)
[2021-06-08] MEDS: FERROUS SULFATE 325 MG TAB PO SCH (08:25)
[2021-06-08] MEDS: CLONIDINE HCL 0.2 MG TAB PO SCH (08:29)
[2021-06-08] MEDS: AMLODIPINE BESYLATE 5 MG TAB PO SCH (09:00)
[2021-06-08] MEDS ORDERED: SODIUM CHLORIDE 0.9% 250ML 250 ML IV ONE (09:45)
[2021-06-08] MEDS: LIDOCAINE 4% PATCH TP SCH (10:22)
[2021-06-08] MEDS ORDERED: SODIUM CHLORIDE 0.9% 250ML 250 ML ONE (11:38)
[2021-06-08] MEDS: HYDROCODONE/APAP 10MG-325MG TAB PO PRN (23:08)
[2021-06-09] VITALS: BP 114/52
[2021-06-09 04:00] VITALS: BP 122/55
[2021-06-09 05:36] LABS: BASOPHILS % 0.4 % (0.0-1.0); EOSINOPHILS # (AUTO) 0.2 (0.0-0.4); EOSINOPHILS % 4.2 % (0.0-6.0); HEMATOCRIT 25.9 % (34.2-44.1); HEMOGLOBIN 7.9 g/dL (12.0-16.0); LYMPHOCYTES # (AUTO) 1.5 (1.0-3.2); LYMPHOCYTES % 27.9 % (18.0-39.1); MEAN CORPUSCULAR HEMOGLOBIN 30.5 pg (28-32); MEAN CORPUSCULAR HGB CONC 30.5 g/dL (31-35); MONOCYTES # (AUTO) 0.5 (0.2-0.8); MONOCYTES % 8.3 % (4.4-11.3); NEUTROPHILS # (AUTO) 3.2 (2.1-6.9); PLATELET COUNT 135 x10e3/uL (140-360); RED BLOOD COUNT 2.59 x10e6/uL (3.6-5.1); RED CELL DISTRIBUTION WIDTH 15.9 % (11.7-14.4)
[2021-06-09 06:05] LABS: ANION GAP 11.1 mmol/L (8-16); CREATININE, SERUM 2.02 mg/dL (0.57-1.11); POTASSIUM 4.1 mmol/L (3.5-5.1)
[2021-06-09 08:00] VITALS: BP 114/48
[2021-06-09] MEDS: DOCUSATE SODIUM 100 MG CAP PO SCH (09:04)
[2021-06-09] MEDS: PANTOPRAZOLE SOD 40 MG TABEC PO SCH (09:04)
[2021-06-09] MEDS: GABAPENTIN 300 MG CAP PO SCH (09:05)
[2021-06-09] MEDS: FERROUS SULFATE 325 MG TAB PO SCH (09:05)
[2021-06-09] MEDS: FLUOXETINE HCL 20 MG CAP PO SCH (09:05)
[2021-06-09] MEDS: AMLODIPINE BESYLATE 5 MG TAB PO SCH (09:05)
[2021-06-09] MEDS: NIACIN 500 MG TABSR PO SCH (09:05)
[2021-06-09] MEDS: ASCORBIC ACID 500 MG TAB PO SCH (09:06)
[2021-06-09] MEDS: LIDOCAINE 4% PATCH TP SCH (09:13)
[2021-06-09] MEDS: HYDROCODONE/APAP 10MG-325MG TAB PO PRN (11:35)
== END 2021-06-09 14:04 | disposition home or self-care (01) | DRG 378 ==
LOC: ER 23:19 → ERHOLD 06-05 01:05 → IMCU 06-05 08:07 → MED/SURG 06-05 15:29
PROC: 0DB78ZX Excision of Stomach, Pylorus, Via Natural or Artificial Opening Endoscopic, Diagnostic (ICD-10-PCS; principal; 2021-06-05)
PROC: 30233N1 Transfusion of Nonautologous Red Blood Cells into Peripheral Vein, Percutaneous Approach (ICD-10-PCS; 2021-06-05)
DX: K29.71 Gastritis, unspecified, with bleeding (principal); D62 Acute posthemorrhagic anemia; N17.9 Acute kidney failure, unspecified; I13.0 Hypertensive heart and chronic kidney disease with heart failure and stage 1 through stage 4 chronic kidney disease, or unspecified chronic kidney disease; I50.32 Chronic diastolic (congestive) heart failure; K44.9 Diaphragmatic hernia without obstruction or gangrene; K20.90 Esophagitis, unspecified without bleeding; N18.30 Chronic kidney disease, stage 3 unspecified; D63.1 Anemia in chronic kidney disease; I25.10 Atherosclerotic heart disease of native coronary artery without angina pectoris; I48.0 Paroxysmal atrial fibrillation; Z79.01 Long term (current) use of anticoagulants; K76.0 Fatty (change of) liver, not elsewhere classified; Z95.1 Presence of aortocoronary bypass graft; Z86.73 Personal history of transient ischemic attack (TIA), and cerebral infarction without residual deficits; E88.09 Other disorders of plasma-protein metabolism, not elsewhere classified; K43.9 Ventral hernia without obstruction or gangrene; Z95.810 Presence of automatic (implantable) cardiac defibrillator; G89.4 Chronic pain syndrome; E03.9 Hypothyroidism, unspecified; F32.9 Major depressive disorder, single episode, unspecified; D69.6 Thrombocytopenia, unspecified; E77.8 Other disorders of glycoprotein metabolism
CPT/HCPCS: 36415; 43239; 71045; 76705; 78278; 80048; 80053; 82270; 82728; 82948; 83540; 83605; 83690; 83880; 84466; 84484; 85014; 85018; 85025; 85045; 85610; 86850; 86900; 86920; 87040; 88305; 88312; 88342; 93005; 94799; 99285; A9512; J2001; J2270; J2405; J7030; J7050; P9016; U0002

== ENCOUNTER 2021-06-23 19:47 | Inpatient (IN) | payer MEDICARE ==
[~2021-06-23] VITALS: Ht 177.8 cm; Wt 81.6 kg
[~2021-06-23 19:47] MED LIST changes: +TOPROL XL25 MG PO; +TRICOR48 MG PO
[2021-06-23 21:03] LABS: BASOPHILS % 0.4 % (0.0-1.0); EOSINOPHILS % 0.2 % (0.0-6.0); HEMATOCRIT 29.9 % (34.2-44.1); HEMOGLOBIN 8.8 g/dL (12.0-16.0); LYMPHOCYTES # (AUTO) 0.7 (1.0-3.2); MEAN CORPUSCULAR HEMOGLOBIN 31.2 pg (28-32); MEAN CORPUSCULAR HGB CONC 29.4 g/dL (31-35); MONOCYTES # (AUTO) 0.5 (0.2-0.8); MONOCYTES % 5.8 % (4.4-11.3); NEUTROPHILS # (AUTO) 7.6 (2.1-6.9); NEUTROPHILS % 85.4 % (38.7-80.0); PLATELET COUNT 181 x10e3/uL (140-360); RED BLOOD COUNT 2.82 x10e6/uL (3.6-5.1); RED CELL DISTRIBUTION WIDTH 16.2 % (11.7-14.4)
[2021-06-23] MEDS ORDERED: ACETAMINOPHEN 325 MG TAB PO ONE ×2 (21:15→23:00)
[2021-06-23] MEDS ORDERED: CEFTRIAXONE 1 GM in SODIUM CHLORIDE 0.9% 50ML 50 ML IV ONE (21:15)
[2021-06-23 21:54] LABS: ALBUMIN 3.8 g/dL (3.5-5.0); ANION GAP 17.4 mmol/L (8-16); CALCIUM 9.7 mg/dL (8.4-10.2); CREATININE, SERUM 3.42 mg/dL (0.57-1.11); POTASSIUM 4.4 mmol/L (3.5-5.1)
[2021-06-23 22:00] LABS: CREATINE KINASE MB 0.7 ng/mL (0-5.0)
[2021-06-23] MEDS: SODIUM CHLORIDE 0.9% 1000ML 1,000 ML IV SCH (22:50)
[2021-06-23] MEDS ORDERED: SODIUM CHLORIDE FLUSH 10 ML SYR INJ PRN (23:00)
[2021-06-23] MEDS: IPRATROPIUM BROMIDE 0.02% 2.5 ML NEB NEB SCH (23:40)
[2021-06-23] MEDS: ALBUTEROL SULF 0.083% NEB SOLN 3 ML NEB NEB SCH (23:40)
[2021-06-24] VITALS (9 sets, daily range): BP systolic 106–123; BP diastolic 51–76
[2021-06-24] MEDS: ALBUTEROL SULF 0.083% NEB SOLN 3 ML NEB NEB SCH ×6 (02:40→22:41)
[2021-06-24] MEDS ORDERED: PROMETHAZINE HC25 M1 PO (03:41)
[2021-06-24] MEDS ORDERED: AMIODARONE HCL200 MG PO (03:42)
[2021-06-24] MEDS ORDERED: LACTULOSE20 GM/30 M PO (03:43)
[2021-06-24] MEDS ORDERED: ASPIRIN EC81 MG PO (03:47)
[2021-06-24] MEDS ORDERED: METFORMIN HCL500 MG PO (03:47)
[2021-06-24] MEDS ORDERED: PROTONIX20 MG PO (03:48)
[2021-06-24] MEDS: IPRATROPIUM BROMIDE 0.02% 2.5 ML NEB NEB SCH ×4 (06:46→22:41)
[2021-06-24] MEDS: INSULIN REGULAR, HUMAN 100 UNIT/1 ML SQ SCH ×4 (07:30→21:00)
[2021-06-24 08:59] LABS: BASOPHILS % 0.4 % (0.0-1.0); EOSINOPHILS % 0.3 % (0.0-6.0); HEMOGLOBIN 8.2 g/dL (12.0-16.0); LYMPHOCYTES # (AUTO) 1.4 (1.0-3.2); LYMPHOCYTES % 21.2 % (18.0-39.1); MEAN CORPUSCULAR HEMOGLOBIN 30.8 pg (28-32); MEAN CORPUSCULAR HGB CONC 29.3 g/dL (31-35); MEAN CORPUSCULAR VOLUME 105.3 fL (81-99); MONOCYTES # (AUTO) 0.6 (0.2-0.8); MONOCYTES % 8.7 % (4.4-11.3); NEUTROPHILS # (AUTO) 4.7 (2.1-6.9); PLATELET COUNT 159 x10e3/uL (140-360); RED BLOOD COUNT 2.66 x10e6/uL (3.6-5.1); RED CELL DISTRIBUTION WIDTH 16.4 % (11.7-14.4)
[2021-06-24 09:31] LABS: ALBUMIN 3.3 g/dL (3.5-5.0); ANION GAP 14.2 mmol/L (8-16); CALCIUM 9.3 mg/dL (8.4-10.2); CREATININE, SERUM 3.02 mg/dL (0.57-1.11); POTASSIUM 4.2 mmol/L (3.5-5.1)
[2021-06-24 09:33] LABS: CREATINE KINASE MB 0.7 ng/mL (0-5.0)
[2021-06-24] MEDS: CEFTRIAXONE 1 GM in SODIUM CHLORIDE 0.9% 50ML 50 ML IV SCH (09:42)
[2021-06-24] MEDS: SODIUM CHLORIDE 0.9% 1000ML 1,000 ML IV SCH ×2 (09:42→17:46)
[2021-06-24] MEDS ORDERED: DOCUSATE SODIUM 100 MG CAP PO PRN (12:45)
[2021-06-24] MEDS ORDERED: PROMETHAZINE HCL 25 MG TAB PO PRN (12:45)
[2021-06-24] MEDS ORDERED: HYDROCODONE/APAP 10MG-325MG TAB PO PRN (12:45)
[2021-06-24] MEDS: GABAPENTIN 300 MG CAP PO SCH ×2 (15:00→21:19)
[2021-06-24 15:44] LABS: CREATINE KINASE MB 0.8 ng/mL (0-5.0)
[2021-06-24] MEDS: INSULIN LISPRO 100 UNIT/1 ML 3ML VIAL SQ SCH (17:00)
[2021-06-24] MEDS: METOPROLOL SUCCINATE 25 MG TAB XL PO SCH (17:42)
[2021-06-24] MEDS: METFORMIN HCL 500 MG TAB PO SCH (17:42)
[2021-06-24] MEDS: INSULIN GLARGINE 100 UNITS/ML VIAL SQ SCH (21:00)
[2021-06-25] VITALS (8 sets, daily range): BP systolic 115–125; BP diastolic 53–75
[2021-06-25] MEDS: SODIUM CHLORIDE 0.9% 1000ML 1,000 ML IV SCH ×3 (02:23→20:21)
[2021-06-25] MEDS: HYDROCODONE/APAP 10MG-325MG TAB PO PRN ×2 (02:35→20:25)
[2021-06-25] MEDS: ALBUTEROL SULF 0.083% NEB SOLN 3 ML NEB NEB SCH ×6 (03:14→23:00)
[2021-06-25 05:34] LABS: BASOPHILS % 0.4 % (0.0-1.0); EOSINOPHILS # (AUTO) 0.1 (0.0-0.4); EOSINOPHILS % 0.8 % (0.0-6.0); HEMATOCRIT 24.7 % (34.2-44.1); HEMOGLOBIN 7.4 g/dL (12.0-16.0); LYMPHOCYTES # (AUTO) 0.9 (1.0-3.2); MEAN CORPUSCULAR HEMOGLOBIN 30.8 pg (28-32); MEAN CORPUSCULAR VOLUME 102.9 fL (81-99); MONOCYTES # (AUTO) 0.8 (0.2-0.8); MONOCYTES % 9.6 % (4.4-11.3); NEUTROPHILS # (AUTO) 6.1 (2.1-6.9); NEUTROPHILS % 77.7 % (38.7-80.0); PLATELET COUNT 157 x10e3/uL (140-360); RED CELL DISTRIBUTION WIDTH 15.9 % (11.7-14.4)
[2021-06-25 06:16] LABS: ANION GAP 10.6 mmol/L (8-16); CALCIUM 8.6 mg/dL (8.4-10.2); CREATININE, SERUM 2.76 mg/dL (0.57-1.11); POTASSIUM 4.6 mmol/L (3.5-5.1)
[2021-06-25] MEDS: IPRATROPIUM BROMIDE 0.02% 2.5 ML NEB NEB SCH ×3 (07:00→20:05)
[2021-06-25] MEDS: INSULIN REGULAR, HUMAN 100 UNIT/1 ML SQ SCH ×5 (07:30→20:12)
[2021-06-25 07:39] LABS: CREATINE KINASE MB 1.1 ng/mL (0-5.0)
[2021-06-25] MEDS: INSULIN LISPRO 100 UNIT/1 ML 3ML VIAL SQ SCH ×3 (08:00→17:00)
[2021-06-25] MEDS ORDERED: FENOFIBRATE 48 MG TAB PO SCH (09:00)
[2021-06-25] MEDS: METFORMIN HCL 500 MG TAB PO SCH (09:23)
[2021-06-25] MEDS: CEFTRIAXONE 1 GM in SODIUM CHLORIDE 0.9% 50ML 50 ML IV SCH (09:25)
[2021-06-25] MEDS: ASPIRIN 81 MG ENTERIC COATED PO SCH (09:25)
[2021-06-25] MEDS: FOLIC ACID 1 MG TAB PO SCH (09:26)
[2021-06-25] MEDS: LACTULOSE SYRUP 20 GM/30 ML UDC PO SCH (09:26)
[2021-06-25] MEDS: AMIODARONE HCL 200 MG TAB PO SCH (09:26)
[2021-06-25] MEDS: PANTOPRAZOLE SOD 40 MG TABEC PO SCH (09:27)
[2021-06-25] MEDS: AMLODIPINE BESYLATE 5 MG TAB PO SCH (09:27)
[2021-06-25] MEDS: GABAPENTIN 300 MG CAP PO SCH ×3 (09:27→20:21)
[2021-06-25] MEDS: METOPROLOL SUCCINATE 25 MG TAB XL PO SCH ×2 (09:28→17:24)
[2021-06-25] MEDS: CHOLECALCIFEROL 1,000 UNIT TAB PO SCH (09:28)
[2021-06-25 10:32] LABS: % IRON SATURATION 7 % (15-50); IRON 25 ug/dL (50-170); TOTAL IRON BINDING CAPACITY 353 ug/dL (261-478); TRANSFERRIN 252 mg/dL (180-382)
[2021-06-25] MEDS: INSULIN GLARGINE 100 UNITS/ML VIAL SQ SCH (20:15)
[2021-06-25] MEDS: AZITHROMYCIN 250 MG TAB PO SCH (20:21)
[2021-06-26] VITALS (9 sets, daily range): BP systolic 107–124; BP diastolic 58–83
[2021-06-26] MEDS: ALBUTEROL SULF 0.083% NEB SOLN 3 ML NEB NEB SCH ×6 (03:00→23:00)
[2021-06-26] MEDS: HYDROCODONE/APAP 10MG-325MG TAB PO PRN ×2 (04:19→16:11)
[2021-06-26] MEDS: SODIUM CHLORIDE 0.9% 1000ML 1,000 ML IV SCH (04:20)
[2021-06-26] MEDS: IPRATROPIUM BROMIDE 0.02% 2.5 ML NEB NEB SCH ×5 (06:00→19:37)
[2021-06-26 06:09] LABS: BASOPHILS # (AUTO) 0.1 (0.0-0.1); BASOPHILS % 0.8 % (0.0-1.0); EOSINOPHILS # (AUTO) 0.2 (0.0-0.4); EOSINOPHILS % 2.9 % (0.0-6.0); HEMATOCRIT 28.9 % (34.2-44.1); HEMOGLOBIN 7.6 g/dL (12.0-16.0); LYMPHOCYTES # (AUTO) 1.2 (1.0-3.2); LYMPHOCYTES % 20.2 % (18.0-39.1); MEAN CORPUSCULAR HEMOGLOBIN 30.8 pg (28-32); MEAN CORPUSCULAR HGB CONC 26.3 g/dL (31-35); MONOCYTES # (AUTO) 0.7 (0.2-0.8); MONOCYTES % 11.8 % (4.4-11.3); NEUTROPHILS # (AUTO) 3.8 (2.1-6.9); NEUTROPHILS % 64.1 % (38.7-80.0); PLATELET COUNT 159 x10e3/uL (140-360); RED BLOOD COUNT 2.47 x10e6/uL (3.6-5.1); RED CELL DISTRIBUTION WIDTH 15.9 % (11.7-14.4)
[2021-06-26 07:17] LABS: ANION GAP 9.6 mmol/L (8-16); CALCIUM 8.6 mg/dL (8.4-10.2); CREATININE, SERUM 2.51 mg/dL (0.57-1.11); POTASSIUM 4.6 mmol/L (3.5-5.1)
[2021-06-26] MEDS: INSULIN REGULAR, HUMAN 100 UNIT/1 ML SQ SCH ×4 (07:30→20:12)
[2021-06-26] MEDS: PANTOPRAZOLE SOD 40 MG TABEC PO SCH (07:30)
[2021-06-26] MEDS: INSULIN LISPRO 100 UNIT/1 ML 3ML VIAL SQ SCH ×2 (08:00→12:00)
[2021-06-26] MEDS: AMLODIPINE BESYLATE 5 MG TAB PO SCH (09:00)
[2021-06-26] MEDS: AMIODARONE HCL 200 MG TAB PO SCH (09:00)
[2021-06-26] MEDS: LACTULOSE SYRUP 20 GM/30 ML UDC PO SCH (09:00)
[2021-06-26] MEDS: CEFTRIAXONE 1 GM in SODIUM CHLORIDE 0.9% 50ML 50 ML IV SCH (09:00)
[2021-06-26] MEDS: METOPROLOL SUCCINATE 25 MG TAB XL PO SCH ×2 (09:00→17:00)
[2021-06-26] MEDS: ASPIRIN 81 MG ENTERIC COATED PO SCH (09:00)
[2021-06-26] MEDS: GABAPENTIN 300 MG CAP PO SCH ×3 (09:00→20:56)
[2021-06-26] MEDS: FOLIC ACID 1 MG TAB PO SCH (09:00)
[2021-06-26] MEDS: CHOLECALCIFEROL 1,000 UNIT TAB PO SCH (11:38)
[2021-06-26 11:48] LABS: BAND NEUTROPHILS % (MANUAL) 1 %; EOSINOPHILS % (MANUAL) 3 % (0-7); LYMPHOCYTES % (MANUAL) 35 % (19-48); MONOCYTES % (MANUAL) 2 % (3.4-9.0); NEUTROPHILS % (MANUAL) 59 % (40-74); PLATELET ESTIMATE ADEQUATE
[2021-06-26 11:49] LABS: PLATELET MORPHOLOGY COMMENT NORMAL; RBC MORPHOLOGY COMMENT NORMAL
[2021-06-26] MEDS ORDERED: BUMETANIDE INJ 0.25MG/ML 4ML VIAL IV STA (13:36)
[2021-06-26] MEDS ORDERED: SODIUM CHLORIDE 0.9% 250ML 250 ML IV ONE (13:45)
[2021-06-26] MEDS ORDERED: BUMETANIDE INJ 0.25MG/ML 4ML VIAL IV PRN (13:45)
[2021-06-26] MEDS ORDERED: BUMETANIDE INJ 0.25MG/ML 4ML VIAL IV ONE (14:30)
[2021-06-26] MEDS ORDERED: DEXTROSE 5%/0.45% SOD CHL 1,000 ML IV ONE (14:30)
[2021-06-26] MEDS: AZITHROMYCIN 250 MG TAB PO SCH (20:56)
[2021-06-27] VITALS (7 sets, daily range): BP systolic 113–129; BP diastolic 58–94
[2021-06-27] MEDS: HYDROCODONE/APAP 10MG-325MG TAB PO PRN ×2 (00:15→19:40)
[2021-06-27] MEDS: IPRATROPIUM BROMIDE 0.02% 2.5 ML NEB NEB SCH ×3 (01:55→20:10)
[2021-06-27] MEDS: ALBUTEROL SULF 0.083% NEB SOLN 3 ML NEB NEB SCH ×5 (03:00→20:10)
[2021-06-27] MEDS: INSULIN REGULAR, HUMAN 100 UNIT/1 ML SQ SCH ×4 (07:30→20:27)
[2021-06-27] MEDS: DEXTROSE 50% SYRINGE 50 ML IV PRN ×2 (07:57→14:55)
[2021-06-27] MEDS: FOLIC ACID 1 MG TAB PO SCH (08:52)
[2021-06-27] MEDS: GABAPENTIN 300 MG CAP PO SCH (08:52)
[2021-06-27] MEDS: ASPIRIN 81 MG ENTERIC COATED PO SCH (08:52)
[2021-06-27] MEDS: PANTOPRAZOLE SOD 40 MG TABEC PO SCH (08:52)
[2021-06-27] MEDS: AMLODIPINE BESYLATE 5 MG TAB PO SCH (08:52)
[2021-06-27] MEDS: AMIODARONE HCL 200 MG TAB PO SCH (08:52)
[2021-06-27] MEDS: METOPROLOL SUCCINATE 25 MG TAB XL PO SCH ×2 (08:53→17:11)
[2021-06-27] MEDS: CHOLECALCIFEROL 1,000 UNIT TAB PO SCH (08:53)
[2021-06-27] MEDS: LACTULOSE SYRUP 20 GM/30 ML UDC PO SCH (09:00)
[2021-06-27] MEDS: CEFTRIAXONE 1 GM in SODIUM CHLORIDE 0.9% 50ML 50 ML IV SCH (09:41)
[2021-06-27] MEDS ORDERED: SODIUM CHLORIDE 0.9% 250ML 250 ML ONE (09:49)
[2021-06-27 15:41] LABS: HEMATOCRIT 36.8 % (34.2-44.1); HEMOGLOBIN 10.8 g/dL (12.0-16.0); MEAN CORPUSCULAR HEMOGLOBIN 30.9 pg (28-32); MEAN CORPUSCULAR HGB CONC 29.3 g/dL (31-35); MEAN CORPUSCULAR VOLUME 105.1 fL (81-99); PLATELET COUNT 183 x10e3/uL (140-360); RED CELL DISTRIBUTION WIDTH 17.4 % (11.7-14.4)
[2021-06-27] MEDS: DEXTROSE 5%/0.45% SOD CHL 1,000 ML IV SCH (17:11)
[2021-06-27 18:13] LABS: LYMPHOCYTES % (MANUAL) 11 % (19-48); MONOCYTES % (MANUAL) 6 % (3.4-9.0); NEUTROPHILS % (MANUAL) 83 % (40-74); PLATELET ESTIMATE ADEQUATE; PLATELET MORPHOLOGY COMMENT NORMAL; RBC MORPHOLOGY COMMENT NORMAL
[2021-06-27] MEDS: AZITHROMYCIN 250 MG TAB PO SCH (20:26)
[2021-06-28] VITALS (9 sets, daily range): BP systolic 93–136; BP diastolic 53–83
[2021-06-28] MEDS: ALBUTEROL SULF 0.083% NEB SOLN 3 ML NEB NEB SCH ×6 (00:45→20:10)
[2021-06-28] MEDS: HYDROCODONE/APAP 10MG-325MG TAB PO PRN ×2 (03:15→21:56)
[2021-06-28] MEDS: IPRATROPIUM BROMIDE 0.02% 2.5 ML NEB NEB SCH ×4 (03:55→20:10)
[2021-06-28] MEDS: DEXTROSE 5%/0.45% SOD CHL 1,000 ML IV SCH (05:26)
[2021-06-28] MEDS: INSULIN REGULAR, HUMAN 100 UNIT/1 ML SQ SCH ×4 (07:30→20:21)
[2021-06-28] MEDS: FOLIC ACID 1 MG TAB PO SCH (09:00)
[2021-06-28] MEDS: ASPIRIN 81 MG ENTERIC COATED PO SCH (09:00)
[2021-06-28] MEDS: LACTULOSE SYRUP 20 GM/30 ML UDC PO SCH (09:00)
[2021-06-28] MEDS: CEFTRIAXONE 1 GM in SODIUM CHLORIDE 0.9% 50ML 50 ML IV SCH (09:00)
[2021-06-28] MEDS: AMIODARONE HCL 200 MG TAB PO SCH (09:00)
[2021-06-28] MEDS: CHOLECALCIFEROL 1,000 UNIT TAB PO SCH (09:00)
[2021-06-28] MEDS: PANTOPRAZOLE SOD 40 MG TABEC PO SCH (09:30)
[2021-06-28 10:28] LABS: BASOPHILS # (AUTO) 0.1 (0.0-0.1); BASOPHILS % 0.5 % (0.0-1.0); EOSINOPHILS # (AUTO) 0.3 (0.0-0.4); EOSINOPHILS % 2.7 % (0.0-6.0); HEMATOCRIT 31.7 % (34.2-44.1); HEMOGLOBIN 9.6 g/dL (12.0-16.0); LYMPHOCYTES # (AUTO) 1.4 (1.0-3.2); LYMPHOCYTES % 11.3 % (18.0-39.1); MEAN CORPUSCULAR HEMOGLOBIN 31.6 pg (28-32); MEAN CORPUSCULAR HGB CONC 30.3 g/dL (31-35); MEAN CORPUSCULAR VOLUME 104.3 fL (81-99); MONOCYTES # (AUTO) 1.3 (0.2-0.8); MONOCYTES % 10.5 % (4.4-11.3); NEUTROPHILS % 74.7 % (38.7-80.0); PLATELET COUNT 175 x10e3/uL (140-360); RED BLOOD COUNT 3.04 x10e6/uL (3.6-5.1)
[2021-06-28 11:00] LABS: ALBUMIN 2.8 g/dL (3.5-5.0); ALBUMIN/GLOBULIN RATIO 0.8 (0.8-2.0); ANION GAP 11.8 mmol/L (8-16); CALCIUM 9.1 mg/dL (8.4-10.2); CREATININE, SERUM 2.65 mg/dL (0.57-1.11); POTASSIUM 4.8 mmol/L (3.5-5.1)
[2021-06-28] MEDS ORDERED: Vancomycin IV 1 GM in SODIUM CHLORIDE 0.9% 250ML 250 ML IV SCH (13:00)
[2021-06-28] MEDS ORDERED: SODIUM CHLORIDE 0.9% 1000ML 1,000 ML ONE (13:07)
[2021-06-28] MEDS ORDERED: CEFEPIME 1 GM in SODIUM CHLORIDE 0.9% 50ML 50 ML IV SCH ×2 (14:00→14:30)
[2021-06-28] MEDS ORDERED: BUMETANIDE INJ 0.25MG/ML 4ML VIAL IV ONE (15:00)
[2021-06-29] VITALS (7 sets, daily range): BP systolic 111–120; BP diastolic 54–63
[2021-06-29] MEDS: ALBUTEROL SULF 0.083% NEB SOLN 3 ML NEB NEB SCH ×6 (00:12→15:40)
[2021-06-29] MEDS: CEFEPIME 1 GM in SODIUM CHLORIDE 0.9% 50ML 50 ML IV SCH ×2 (02:06→16:48)
[2021-06-29] MEDS: IPRATROPIUM BROMIDE 0.02% 2.5 ML NEB NEB SCH ×3 (04:10→11:15)
[2021-06-29] MEDS: INSULIN REGULAR, HUMAN 100 UNIT/1 ML SQ SCH ×4 (07:30→19:40)
[2021-06-29 08:08] LABS: BASOPHILS # (AUTO) 0.1 (0.0-0.1); BASOPHILS % 0.6 % (0.0-1.0); EOSINOPHILS # (AUTO) 0.2 (0.0-0.4); EOSINOPHILS % 2.9 % (0.0-6.0); HEMATOCRIT 30.8 % (34.2-44.1); LYMPHOCYTES # (AUTO) 1.4 (1.0-3.2); LYMPHOCYTES % 17.3 % (18.0-39.1); MEAN CORPUSCULAR HEMOGLOBIN 30.9 pg (28-32); MEAN CORPUSCULAR HGB CONC 29.2 g/dL (31-35); MEAN CORPUSCULAR VOLUME 105.8 fL (81-99); MONOCYTES # (AUTO) 0.7 (0.2-0.8); MONOCYTES % 8.2 % (4.4-11.3); NEUTROPHILS # (AUTO) 5.6 (2.1-6.9); NEUTROPHILS % 70.5 % (38.7-80.0); PLATELET COUNT 173 x10e3/uL (140-360); RED BLOOD COUNT 2.91 x10e6/uL (3.6-5.1); RED CELL DISTRIBUTION WIDTH 16.5 % (11.7-14.4)
[2021-06-29 08:34] LABS: ALBUMIN 2.9 g/dL (3.5-5.0); ALBUMIN/GLOBULIN RATIO 0.8 (0.8-2.0); ANION GAP 15.6 mmol/L (8-16); CALCIUM 9.2 mg/dL (8.4-10.2); CREATININE, SERUM 2.54 mg/dL (0.57-1.11); POTASSIUM 4.6 mmol/L (3.5-5.1)
[2021-06-29] MEDS: LACTULOSE SYRUP 20 GM/30 ML UDC PO SCH (08:42)
[2021-06-29] MEDS: FOLIC ACID 1 MG TAB PO SCH (08:48)
[2021-06-29] MEDS: HYDROCODONE/APAP 10MG-325MG TAB PO PRN ×2 (08:48→16:49)
[2021-06-29] MEDS: CHOLECALCIFEROL 1,000 UNIT TAB PO SCH (08:48)
[2021-06-29] MEDS: AMIODARONE HCL 200 MG TAB PO SCH (08:48)
[2021-06-29] MEDS: ASPIRIN 81 MG ENTERIC COATED PO SCH (08:48)
[2021-06-29] MEDS: PANTOPRAZOLE SOD 40 MG TABEC PO SCH (08:48)
[2021-06-30] VITALS (8 sets, daily range): BP systolic 110–129; BP diastolic 52–62
[2021-06-30] MEDS: IPRATROPIUM BROMIDE 0.02% 2.5 ML NEB NEB SCH ×5 (00:05→23:05)
[2021-06-30] MEDS: HYDROCODONE/APAP 10MG-325MG TAB PO PRN ×3 (00:55→20:45)
[2021-06-30] MEDS: CEFEPIME 1 GM in SODIUM CHLORIDE 0.9% 50ML 50 ML IV SCH ×2 (02:53→15:56)
[2021-06-30] MEDS: ALBUTEROL SULF 0.083% NEB SOLN 3 ML NEB NEB SCH ×6 (04:40→23:05)
[2021-06-30] MEDS: INSULIN REGULAR, HUMAN 100 UNIT/1 ML SQ SCH ×4 (07:30→21:00)
[2021-06-30] MEDS: FOLIC ACID 1 MG TAB PO SCH (08:10)
[2021-06-30] MEDS: LACTULOSE SYRUP 20 GM/30 ML UDC PO SCH (08:10)
[2021-06-30] MEDS: ASPIRIN 81 MG ENTERIC COATED PO SCH (08:10)
[2021-06-30] MEDS: AMIODARONE HCL 200 MG TAB PO SCH (08:10)
[2021-06-30] MEDS: PANTOPRAZOLE SOD 40 MG TABEC PO SCH (08:10)
[2021-06-30] MEDS: CHOLECALCIFEROL 1,000 UNIT TAB PO SCH (08:10)
[2021-06-30 10:16] LABS: BASOPHILS % 0.4 % (0.0-1.0); EOSINOPHILS # (AUTO) 0.2 (0.0-0.4); EOSINOPHILS % 3.1 % (0.0-6.0); HEMATOCRIT 29.6 % (34.2-44.1); HEMOGLOBIN 8.6 g/dL (12.0-16.0); LYMPHOCYTES % 13.8 % (18.0-39.1); MEAN CORPUSCULAR HEMOGLOBIN 30.7 pg (28-32); MEAN CORPUSCULAR HGB CONC 29.1 g/dL (31-35); MEAN CORPUSCULAR VOLUME 105.7 fL (81-99); MONOCYTES # (AUTO) 0.6 (0.2-0.8); MONOCYTES % 8.2 % (4.4-11.3); NEUTROPHILS # (AUTO) 5.5 (2.1-6.9); NEUTROPHILS % 74.2 % (38.7-80.0); PLATELET COUNT 171 x10e3/uL (140-360); RED CELL DISTRIBUTION WIDTH 16.5 % (11.7-14.4)
[2021-06-30 10:41] LABS: ANION GAP 8.7 mmol/L (8-16); CALCIUM 9.3 mg/dL (8.4-10.2); CREATININE, SERUM 2.21 mg/dL (0.57-1.11); POTASSIUM 4.7 mmol/L (3.5-5.1)
[2021-06-30] MEDS: FLUOXETINE HCL 20 MG CAP PO SCH (11:40)
[2021-06-30] MEDS ORDERED: FUROSEMIDE INJ 10 MG/ML 4 ML VIAL IV ONE (11:45)
[2021-07-01 00:34] VITALS: BP 113/57
[2021-07-01] MEDS: CEFEPIME 1 GM in SODIUM CHLORIDE 0.9% 50ML 50 ML IV SCH ×2 (03:00→13:40)
[2021-07-01] MEDS: ALBUTEROL SULF 0.083% NEB SOLN 3 ML NEB NEB SCH ×3 (03:10→11:05)
[2021-07-01 05:19] VITALS: BP 130/59
[2021-07-01 05:37] LABS: BASOPHILS % 0.2 % (0.0-1.0); EOSINOPHILS # (AUTO) 0.3 (0.0-0.4); EOSINOPHILS % 4.5 % (0.0-6.0); HEMATOCRIT 28.3 % (34.2-44.1); HEMOGLOBIN 8.4 g/dL (12.0-16.0); LYMPHOCYTES % 15.8 % (18.0-39.1); MEAN CORPUSCULAR HEMOGLOBIN 30.8 pg (28-32); MEAN CORPUSCULAR HGB CONC 29.7 g/dL (31-35); MEAN CORPUSCULAR VOLUME 103.7 fL (81-99); MONOCYTES # (AUTO) 0.6 (0.2-0.8); MONOCYTES % 9.2 % (4.4-11.3); NEUTROPHILS # (AUTO) 4.5 (2.1-6.9); NEUTROPHILS % 69.8 % (38.7-80.0); PLATELET COUNT 172 x10e3/uL (140-360); RED BLOOD COUNT 2.73 x10e6/uL (3.6-5.1); RED CELL DISTRIBUTION WIDTH 16.6 % (11.7-14.4)
[2021-07-01] MEDS: HYDROCODONE/APAP 10MG-325MG TAB PO PRN (05:40)
[2021-07-01 06:01] LABS: ANION GAP 15.2 mmol/L (8-16); CALCIUM 9.5 mg/dL (8.4-10.2); POTASSIUM 4.2 mmol/L (3.5-5.1)
[2021-07-01] MEDS: IPRATROPIUM BROMIDE 0.02% 2.5 ML NEB NEB SCH ×2 (06:45→12:00)
[2021-07-01] MEDS: INSULIN REGULAR, HUMAN 100 UNIT/1 ML SQ SCH ×2 (07:30→11:17)
[2021-07-01 08:25] VITALS: BP 118/73
[2021-07-01] MEDS: PANTOPRAZOLE SOD 40 MG TABEC PO SCH (09:03)
[2021-07-01] MEDS: ASPIRIN 81 MG ENTERIC COATED PO SCH (09:03)
[2021-07-01] MEDS: LACTULOSE SYRUP 20 GM/30 ML UDC PO SCH (09:03)
[2021-07-01] MEDS: FOLIC ACID 1 MG TAB PO SCH (09:03)
[2021-07-01] MEDS: FLUOXETINE HCL 20 MG CAP PO SCH (09:03)
[2021-07-01] MEDS: AMIODARONE HCL 200 MG TAB PO SCH (09:03)
[2021-07-01] MEDS: CHOLECALCIFEROL 1,000 UNIT TAB PO SCH (09:03)
[2021-07-01 09:12] VITALS: BP 118/73
[2021-07-01 10:02] LABS: ANISOCYTOSIS SLIGHT; HYPOCHROMASIA SLIGHT; PLATELET ESTIMATE ADEQUATE; PLATELET MORPHOLOGY COMMENT NORMAL; RBC MORPHOLOGY COMMENT NORMAL
[2021-07-01] MEDS ORDERED: keflex PO (10:41)
[2021-07-01] MEDS ORDERED: z-pack (10:42)
[2021-07-01 11:19] VITALS: BP 152/77
== END 2021-07-01 14:30 | disposition home or self-care (01) | DRG 177 ==
LOC: ER 20:51 → ERHOLD 22:58 → MED/SURG2 06-24 02:22
PROC: 30233N1 Transfusion of Nonautologous Red Blood Cells into Peripheral Vein, Percutaneous Approach (ICD-10-PCS; principal; 2021-06-26)
DX: J15.6 Pneumonia due to other Gram-negative bacteria (principal); I50.43 Acute on chronic combined systolic (congestive) and diastolic (congestive) heart failure; I13.0 Hypertensive heart and chronic kidney disease with heart failure and stage 1 through stage 4 chronic kidney disease, or unspecified chronic kidney disease; N18.4 Chronic kidney disease, stage 4 (severe); K92.2 Gastrointestinal hemorrhage, unspecified; N17.9 Acute kidney failure, unspecified; E11.22 Type 2 diabetes mellitus with diabetic chronic kidney disease; Z79.899 Other long term (current) drug therapy; I25.10 Atherosclerotic heart disease of native coronary artery without angina pectoris; Z95.1 Presence of aortocoronary bypass graft; E03.9 Hypothyroidism, unspecified; G89.29 Other chronic pain; D69.6 Thrombocytopenia, unspecified; E11.21 Type 2 diabetes mellitus with diabetic nephropathy; D63.1 Anemia in chronic kidney disease; D63.8 Anemia in other chronic diseases classified elsewhere; E66.9 Obesity, unspecified; Z68.25 Body mass index [BMI] 25.0-25.9, adult; K43.9 Ventral hernia without obstruction or gangrene; R09.02 Hypoxemia; E11.42 Type 2 diabetes mellitus with diabetic polyneuropathy
CPT/HCPCS: 36415; 71045; 71046; 80048; 80053; 82270; 82550; 82553; 82728; 82948; 83540; 83605; 84466; 84484; 85007; 85025; 85027; 86850; 86900; 86920; 87040; 93005; 94640; 94799; 99251; 99284; J0456; J0692; J0696; J1815; J1817; J1940; J7030; J7050; J7799; P9016; U0002

== ENCOUNTER 2021-07-11 17:01 | Inpatient (IN) | payer MEDICARE ==
[~2021-07-11] VITALS: Ht 177.8 cm; Wt 90.7 kg
[~2021-07-11 17:01] MED LIST changes: +ASPIRIN EC81 MG PO; +PROTONIX20 MG PO; +keflex PO; +z-pack
[2021-07-11 17:47] LABS: BASOPHILS # (AUTO) 0.1 (0.0-0.1); EOSINOPHILS # (AUTO) 0.2 (0.0-0.4); EOSINOPHILS % 2.1 % (0.0-6.0); HEMATOCRIT 31.2 % (34.2-44.1); HEMOGLOBIN 9.4 g/dL (12.0-16.0); LYMPHOCYTES # (AUTO) 1.1 (1.0-3.2); MEAN CORPUSCULAR HEMOGLOBIN 30.8 pg (28-32); MEAN CORPUSCULAR HGB CONC 30.1 g/dL (31-35); MEAN CORPUSCULAR VOLUME 102.3 fL (81-99); MONOCYTES # (AUTO) 0.4 (0.2-0.8); NEUTROPHILS # (AUTO) 5.5 (2.1-6.9); NEUTROPHILS % 74.9 % (38.7-80.0); PLATELET COUNT 196 x10e3/uL (140-360); RED BLOOD COUNT 3.05 x10e6/uL (3.6-5.1); RED CELL DISTRIBUTION WIDTH 15.9 % (11.7-14.4)
[2021-07-11 18:07] LABS: ALBUMIN 3.5 g/dL (3.5-5.0); ALBUMIN/GLOBULIN RATIO 0.9 (0.8-2.0); CALCIUM 10.5 mg/dL (8.4-10.2); CREATININE, SERUM 2.77 mg/dL (0.57-1.11)
[2021-07-11 18:13] LABS: CREATINE KINASE MB 1.3 ng/mL (0-5.0)
[2021-07-11] MEDS ORDERED: HYDROCODON-ACE1 EAC9 PO (19:00)
[2021-07-11] MEDS ORDERED: SODIUM CHLORIDE FLUSH 10 ML SYR INJ PRN (19:00)
[2021-07-11] MEDS ORDERED: FUROSEMIDE INJ 10 MG/ML 4 ML VIAL IV ONE ×2 (19:00→19:15)
[2021-07-11] MEDS ORDERED: DEXTROSE 50% SYRINGE 50 ML IV PRN (19:00)
[2021-07-11] MEDS ORDERED: CEPHALEXIN500 MG PO (19:10)
[2021-07-11] MEDS: HYDROCODONE/APAP 10MG-325MG TAB PO PRN (19:22)
[2021-07-11] MEDS: FUROSEMIDE INJ 100 MG in SODIUM CHLORIDE 0.9% 100 ML 90 ML IV SCH (19:47)
[2021-07-11] MEDS: INSULIN REGULAR, HUMAN 100 UNIT/1 ML SQ SCH (20:58)
[2021-07-11 21:45] VITALS: BP 119/69
[2021-07-11 22:17] VITALS: BP 105/60
[2021-07-11] MEDS ORDERED: MELATONIN3 MG PO (22:54)
[2021-07-12] VITALS (9 sets, daily range): BP systolic 105–113; BP diastolic 59–72
[2021-07-12] MEDS: FUROSEMIDE INJ 100 MG in SODIUM CHLORIDE 0.9% 100 ML 90 ML IV SCH ×6 (01:30→20:06)
[2021-07-12] MEDS ORDERED: SODIUM CHLORIDE 0.9% 250ML 250 ML ONE (03:48)
[2021-07-12] MEDS: HYDROCODONE/APAP 10MG-325MG TAB PO PRN ×2 (05:10→16:49)
[2021-07-12 06:07] LABS: BASOPHILS % 0.8 % (0.0-1.0); EOSINOPHILS # (AUTO) 0.2 (0.0-0.4); EOSINOPHILS % 4.4 % (0.0-6.0); HEMATOCRIT 29.6 % (34.2-44.1); HEMOGLOBIN 8.7 g/dL (12.0-16.0); LYMPHOCYTES # (AUTO) 1.2 (1.0-3.2); LYMPHOCYTES % 23.8 % (18.0-39.1); MEAN CORPUSCULAR HEMOGLOBIN 30.2 pg (28-32); MEAN CORPUSCULAR HGB CONC 29.4 g/dL (31-35); MEAN CORPUSCULAR VOLUME 102.8 fL (81-99); MONOCYTES # (AUTO) 0.4 (0.2-0.8); MONOCYTES % 8.1 % (4.4-11.3); NEUTROPHILS # (AUTO) 3.2 (2.1-6.9); NEUTROPHILS % 62.9 % (38.7-80.0); PLATELET COUNT 177 x10e3/uL (140-360); RED BLOOD COUNT 2.88 x10e6/uL (3.6-5.1); RED CELL DISTRIBUTION WIDTH 15.5 % (11.7-14.4)
[2021-07-12 06:32] LABS: ANION GAP 14.4 mmol/L (8-16); CALCIUM 10.2 mg/dL (8.4-10.2); CREATININE, SERUM 2.54 mg/dL (0.57-1.11); POTASSIUM 4.4 mmol/L (3.5-5.1)
[2021-07-12 06:41] LABS: CREATINE KINASE MB 0.8 ng/mL (0-5.0)
[2021-07-12] MEDS: INSULIN REGULAR, HUMAN 100 UNIT/1 ML SQ SCH ×4 (07:30→20:07)
[2021-07-12] MEDS ORDERED: FUROSEMIDE INJ 10 MG/ML 4 ML VIAL IV SCH (09:00)
[2021-07-12] MEDS ORDERED: PROMETHAZINE HCL 25 MG TAB PO PRN (14:00)
[2021-07-12] MEDS ORDERED: DOCUSATE SODIUM 100 MG CAP PO PRN (14:00)
[2021-07-12] MEDS ORDERED: HYDROCODONE/APAP 10MG-325MG TAB PO PRN (14:00)
[2021-07-12] MEDS: GABAPENTIN 300 MG CAP PO SCH ×2 (16:43→20:03)
[2021-07-12] MEDS: METOPROLOL SUCCINATE 25 MG TAB XL PO SCH (16:44)
[2021-07-12] MEDS: MELATONIN 3 MG TAB PO SCH (22:07)
[2021-07-13] VITALS (10 sets, daily range): BP systolic 97–135; BP diastolic 50–116
[2021-07-13] MEDS: HYDROCODONE/APAP 10MG-325MG TAB PO PRN ×3 (00:07→23:35)
[2021-07-13] MEDS: FUROSEMIDE INJ 100 MG in SODIUM CHLORIDE 0.9% 100 ML 90 ML IV SCH ×2 (01:48→06:30)
[2021-07-13 06:26] LABS: ALBUMIN/GLOBULIN RATIO 0.9 (0.8-2.0); ALKALINE PHOSPHATASE 46 IU/L (40-150); ANION GAP 15.2 mmol/L (8-16); BLOOD UREA NITROGEN 38 mg/dL (7-26); BUN/CREATININE RATIO 14 (6-25); CALCIUM 9.8 mg/dL (8.4-10.2); CARBON DIOXIDE 39 mmol/L (22-29); CHLORIDE 90 mmol/L (98-107); CREATININE, SERUM 2.73 mg/dL (0.57-1.11); EST GLOMERULAR FILTRATION RATE 17 ML/MIN (60-); GLUCOSE 103 mg/dL (74-118); POTASSIUM 4.2 mmol/L (3.5-5.1); SODIUM 140 mmol/L (136-145)
[2021-07-13 06:41] LABS: ALANINE AMINOTRANSFERASE < 6 IU/L (0-55)
[2021-07-13] MEDS: INSULIN REGULAR, HUMAN 100 UNIT/1 ML SQ SCH ×4 (07:30→19:32)
[2021-07-13] MEDS: PANTOPRAZOLE SOD 40 MG TABEC PO SCH (08:43)
[2021-07-13] MEDS: AMIODARONE HCL 200 MG TAB PO SCH (08:43)
[2021-07-13] MEDS: GABAPENTIN 300 MG CAP PO SCH ×3 (08:43→20:30)
[2021-07-13] MEDS: FENOFIBRATE 48 MG TAB PO SCH (08:43)
[2021-07-13] MEDS: METOPROLOL SUCCINATE 25 MG TAB XL PO SCH ×2 (08:43→16:30)
[2021-07-13] MEDS: AMLODIPINE BESYLATE 5 MG TAB PO SCH (09:00)
[2021-07-13] MEDS: FUROSEMIDE 20 MG TAB PO SCH (16:30)
[2021-07-13] MEDS: MELATONIN 3 MG TAB PO SCH (20:30)
[2021-07-14] VITALS (7 sets, daily range): BP systolic 95–105; BP diastolic 53–59
[2021-07-14] MEDS: FUROSEMIDE 20 MG TAB PO SCH (06:19)
[2021-07-14 06:37] LABS: ANION GAP 17.4 mmol/L (8-16); CALCIUM 9.7 mg/dL (8.4-10.2); CREATININE, SERUM 3.06 mg/dL (0.57-1.11); POTASSIUM 4.4 mmol/L (3.5-5.1)
[2021-07-14] MEDS: INSULIN REGULAR, HUMAN 100 UNIT/1 ML SQ SCH ×4 (07:30→21:00)
[2021-07-14] MEDS: METOPROLOL SUCCINATE 25 MG TAB XL PO SCH ×2 (09:00→17:37)
[2021-07-14] MEDS: AMLODIPINE BESYLATE 5 MG TAB PO SCH (09:00)
[2021-07-14] MEDS: FENOFIBRATE 48 MG TAB PO SCH (09:48)
[2021-07-14] MEDS: GABAPENTIN 300 MG CAP PO SCH (09:48)
[2021-07-14] MEDS: AMIODARONE HCL 200 MG TAB PO SCH (09:48)
[2021-07-14] MEDS: PANTOPRAZOLE SOD 40 MG TABEC PO SCH (09:48)
[2021-07-14] MEDS: HYDROCODONE/APAP 10MG-325MG TAB PO PRN (10:35)
[2021-07-14] MEDS ORDERED: FUROSEMIDE INJ 10 MG/ML 4 ML VIAL IV ONE (14:00)
[2021-07-14] MEDS: BUMETANIDE 1 MG TAB PO SCH (17:37)
[2021-07-14] MEDS: MELATONIN 3 MG TAB PO SCH (21:00)
[2021-07-15 01:16] VITALS: BP 114/59
[2021-07-15] MEDS: HYDROCODONE/APAP 10MG-325MG TAB PO PRN (02:55)
[2021-07-15 04:54] VITALS: BP 103/56
[2021-07-15 05:48] LABS: ALBUMIN/GLOBULIN RATIO 0.8 (0.8-2.0); ANION GAP 17.3 mmol/L (8-16); CALCIUM 9.3 mg/dL (8.4-10.2); CREATININE, SERUM 3.51 mg/dL (0.57-1.11); POTASSIUM 4.3 mmol/L (3.5-5.1)
[2021-07-15] MEDS: INSULIN REGULAR, HUMAN 100 UNIT/1 ML SQ SCH ×3 (07:30→15:26)
[2021-07-15 07:57] VITALS: BP 104/55
[2021-07-15 08:32] VITALS: BP 104/55
[2021-07-15] MEDS ORDERED: GABAPENTIN 300 MG CAP PO SCH (09:00)
[2021-07-15] MEDS: AMIODARONE HCL 200 MG TAB PO SCH (09:15)
[2021-07-15] MEDS: BUMETANIDE 1 MG TAB PO SCH ×2 (09:15→16:26)
[2021-07-15] MEDS: AMLODIPINE BESYLATE 5 MG TAB PO SCH (09:16)
[2021-07-15] MEDS: PANTOPRAZOLE SOD 40 MG TABEC PO SCH (09:16)
[2021-07-15] MEDS: FENOFIBRATE 48 MG TAB PO SCH (09:17)
[2021-07-15] MEDS: METOPROLOL SUCCINATE 25 MG TAB XL PO SCH ×2 (09:17→16:27)
[2021-07-15 10:57] LABS: BASOPHILS # (AUTO) 0.1 (0.0-0.1); BASOPHILS % 0.9 % (0.0-1.0); EOSINOPHILS # (AUTO) 0.2 (0.0-0.4); EOSINOPHILS % 4.3 % (0.0-6.0); HEMATOCRIT 28.4 % (34.2-44.1); HEMOGLOBIN 8.2 g/dL (12.0-16.0); LYMPHOCYTES # (AUTO) 1.4 (1.0-3.2); LYMPHOCYTES % 25.6 % (18.0-39.1); MEAN CORPUSCULAR HEMOGLOBIN 30.3 pg (28-32); MEAN CORPUSCULAR HGB CONC 28.9 g/dL (31-35); MEAN CORPUSCULAR VOLUME 104.8 fL (81-99); MONOCYTES # (AUTO) 0.5 (0.2-0.8); MONOCYTES % 9.3 % (4.4-11.3); NEUTROPHILS # (AUTO) 3.2 (2.1-6.9); NEUTROPHILS % 59.7 % (38.7-80.0); PLATELET COUNT 166 x10e3/uL (140-360); RED BLOOD COUNT 2.71 x10e6/uL (3.6-5.1); RED CELL DISTRIBUTION WIDTH 15.6 % (11.7-14.4)
[2021-07-15 11:37] VITALS: BP 98/51
[2021-07-15 15:39] VITALS: BP 98/55
[2021-07-15] MEDS ORDERED: ATORVASTATIN 20 MG TAB PO SCH (21:00)
[2021-07-16] MEDS ORDERED: ASPIRIN 81 MG ENTERIC COATED PO SCH (09:00)
== END 2021-07-15 17:35 | disposition home or self-care (01) | DRG 291 ==
LOC: ER 17:14 → ERHOLD 19:32 → MED/SURG3 21:54
DX: I13.0 Hypertensive heart and chronic kidney disease with heart failure and stage 1 through stage 4 chronic kidney disease, or unspecified chronic kidney disease (principal); I50.23 Acute on chronic systolic (congestive) heart failure; N18.4 Chronic kidney disease, stage 4 (severe); E11.22 Type 2 diabetes mellitus with diabetic chronic kidney disease; D64.9 Anemia, unspecified; I25.10 Atherosclerotic heart disease of native coronary artery without angina pectoris; Z88.1 Allergy status to other antibiotic agents; Z95.1 Presence of aortocoronary bypass graft; Z86.73 Personal history of transient ischemic attack (TIA), and cerebral infarction without residual deficits; Z95.810 Presence of automatic (implantable) cardiac defibrillator; Z82.49 Family history of ischemic heart disease and other diseases of the circulatory system; Z20.822 Contact with and (suspected) exposure to COVID-19; Z79.84 Long term (current) use of oral hypoglycemic drugs
CPT/HCPCS: 36415; 51700; 71045; 71046; 80048; 80053; 82550; 82553; 82948; 83735; 83880; 84484; 85025; 93005; 93306; 94799; 99284; J1817; J1940; J7050; U0002

== ENCOUNTER 2021-10-09 20:28 | Inpatient (IN) | payer MEDICARE, OTHER ==
[~2021-10-09] VITALS: Ht 177.8 cm; Wt 83.1 kg
[~2021-10-09 20:28] MED LIST changes: +CEPHALEXIN500 MG PO; +HYDROCODON-ACE1 EAC9 PO; +MELATONIN3 MG PO
[2021-10-09] MEDS ORDERED: ACETAMINOPHEN 325 MG TAB PO STA (21:30)
[2021-10-09 21:37] LABS: BASOPHILS % 0.3 % (0.0-1.0); EOSINOPHILS % 0.6 % (0.0-6.0); HEMOGLOBIN 12.8 g/dL (12.0-16.0); LYMPHOCYTES # (AUTO) 1.1 (1.0-3.2); LYMPHOCYTES % 16.5 % (18.0-39.1); MEAN CORPUSCULAR HEMOGLOBIN 32.7 pg (28-32); MEAN CORPUSCULAR HGB CONC 31.2 g/dL (31-35); MEAN CORPUSCULAR VOLUME 104.6 fL (81-99); MONOCYTES # (AUTO) 0.4 (0.2-0.8); MONOCYTES % 5.5 % (4.4-11.3); NEUTROPHILS # (AUTO) 5.1 (2.1-6.9); NEUTROPHILS % 76.6 % (38.7-80.0); PLATELET COUNT 62 x10e3/uL (140-360); RED BLOOD COUNT 3.92 x10e6/uL (3.6-5.1); RED CELL DISTRIBUTION WIDTH 22.3 % (11.7-14.4)
[2021-10-09 21:56] LABS: ALBUMIN 4.1 g/dL (3.5-5.0); ANION GAP 20.3 mmol/L (8-16); CALCIUM 10.6 mg/dL (8.4-10.2); CREATININE, SERUM 3.85 mg/dL (0.57-1.11); POTASSIUM 4.3 mmol/L (3.5-5.1)
[2021-10-09 22:03] LABS: CREATINE KINASE MB 2.2 ng/mL (0-5.0)
[2021-10-10] VITALS (9 sets, daily range): BP systolic 96–117; BP diastolic 62–75
[2021-10-10] MEDS ORDERED: ONDANSETRON HCL INJ 2MG/ML 2ML 2 MG/ML VIAL IV STA (00:32)
[2021-10-10] MEDS ORDERED: Morphine 2mg Syringe 2 MG/ML SYR IV PRN (00:45)
[2021-10-10] MEDS ORDERED: MULTI-VITAMIN1 EACH PO (02:44)
[2021-10-10] MEDS ORDERED: CLONIDINE HCL0.2 MG PO (02:44)
[2021-10-10] MEDS ORDERED: ULTRAM50 MG PO (02:44)
[2021-10-10] MEDS ORDERED: HUMALOG KW200 UNIT/1 SQ (02:44)
[2021-10-10] MEDS ORDERED: LASIX20 MG PO (02:44)
[2021-10-10] MEDS ORDERED: POLYETHYLENE GL17 GM PO (02:44)
[2021-10-10] MEDS ORDERED: AMBIEN10 MG PO (02:44)
[2021-10-10] MEDS ORDERED: LEVEMIR FL100 UNIT/1 SC (02:44)
[2021-10-10] MEDS ORDERED: METOPROLOL TART25 MG PO (02:44)
[2021-10-10] MEDS ORDERED: ENULOSE10 GM/15 M PO (02:44)
[2021-10-10] MEDS ORDERED: combivent respimat IH (02:44)
[2021-10-10 05:17] LABS: BASOPHILS % 0.5 % (0.0-1.0); EOSINOPHILS % 0.7 % (0.0-6.0); HEMATOCRIT 38.3 % (34.2-44.1); HEMOGLOBIN 11.9 g/dL (12.0-16.0); LYMPHOCYTES # (AUTO) 1.5 (1.0-3.2); LYMPHOCYTES % 24.8 % (18.0-39.1); MEAN CORPUSCULAR HEMOGLOBIN 32.9 pg (28-32); MEAN CORPUSCULAR HGB CONC 31.1 g/dL (31-35); MEAN CORPUSCULAR VOLUME 105.8 fL (81-99); MONOCYTES # (AUTO) 0.5 (0.2-0.8); MONOCYTES % 7.3 % (4.4-11.3); NEUTROPHILS # (AUTO) 4.1 (2.1-6.9); NEUTROPHILS % 66.4 % (38.7-80.0); RED BLOOD COUNT 3.62 x10e6/uL (3.6-5.1); RED CELL DISTRIBUTION WIDTH 22.5 % (11.7-14.4)
[2021-10-10 05:38] LABS: PLATELET COUNT 48 x10e3/uL (140-360)
[2021-10-10 05:49] LABS: ALBUMIN 3.5 g/dL (3.5-5.0); ANION GAP 17.4 mmol/L (8-16); CALCIUM 9.7 mg/dL (8.4-10.2); CREATININE, SERUM 3.71 mg/dL (0.57-1.11); POTASSIUM 4.4 mmol/L (3.5-5.1)
[2021-10-10 06:17] LABS: CREATINE KINASE MB 2.2 ng/mL (0-5.0)
[2021-10-10] MEDS ORDERED: DEXTROSE 50% SYRINGE 50 ML IV PRN (08:15)
[2021-10-10] MEDS ORDERED: ZOLPIDEM TARTRATE 10 MG TAB PO PRN (08:15)
[2021-10-10] MEDS ORDERED: PROMETHAZINE HCL 25 MG TAB PO PRN (08:15)
[2021-10-10] MEDS ORDERED: HYDROCODONE/APAP 10MG-325MG TAB PO PRN (08:15)
[2021-10-10] MEDS ORDERED: DOCUSATE SODIUM 100 MG CAP PO PRN (08:15)
[2021-10-10] MEDS: METOPROLOL TARTRATE 25 MG TAB PO SCH ×2 (09:00→17:00)
[2021-10-10] MEDS ORDERED: AMLODIPINE BESYLATE 5 MG TAB PO SCH (09:00)
[2021-10-10] MEDS ORDERED: FENOFIBRATE 48 MG TAB PO SCH (09:00)
[2021-10-10] MEDS: CLONIDINE HCL 0.2 MG TAB PO SCH ×2 (09:00→17:00)
[2021-10-10] MEDS ORDERED: METFORMIN HCL 500 MG TAB PO SCH (09:00)
[2021-10-10] MEDS ORDERED: FUROSEMIDE INJ 10 MG/ML 4 ML VIAL IV ONE (09:00)
[2021-10-10] MEDS: POLYETHYLENE GLYCOL 3350 17 GM PACK PO SCH (10:07)
[2021-10-10] MEDS: LACTULOSE SYRUP 20 GM/30 ML UDC PO SCH (10:07)
[2021-10-10] MEDS: TRAMADOL HCL 50 MG TAB PO SCH ×3 (10:08→17:40)
[2021-10-10] MEDS: GABAPENTIN 300 MG CAP PO SCH ×3 (10:09→21:00)
[2021-10-10] MEDS: AMIODARONE HCL 200 MG TAB PO SCH (10:10)
[2021-10-10] MEDS: PANTOPRAZOLE SOD 40 MG TABEC PO SCH (10:24)
[2021-10-10] MEDS: MULTIVITAMINS/MINERALS TAB PO SCH (10:24)
[2021-10-10] MEDS: INSULIN REGULAR, HUMAN 100 UNIT/1 ML SQ SCH ×3 (11:30→21:00)
[2021-10-10] MEDS ORDERED: ALBUTEROL/IPRATROPIUM 3 ML NEB NEB PRN (12:30)
[2021-10-10] MEDS ORDERED: LIDOCAINE HCL 1% LOCAL INJ 20 ML VIAL ONE (14:03)
[2021-10-10] MEDS ORDERED: IOPAMIDOL 300MG/ML 100 ML INFUS..BTL IV ONE (14:44)
[2021-10-10] MEDS: FUROSEMIDE INJ 10 MG/ML 4 ML VIAL IV SCH (15:28)
[2021-10-10] MEDS: ALBUTEROL/IPRATROPIUM 3 ML NEB NEB SCH ×3 (15:32→23:05)
[2021-10-10 15:37] LABS: ABG HCO3 32 mmol/L (22-26); ABG PCO2 57 mmHg (35-45); ABG PH 7.36 (7.35-7.45); ABG PO2 89 mmHg (80-105); ABG TCO2 34
[2021-10-10] MEDS ORDERED: FUROSEMIDE 20 MG TAB PO SCH (17:00)
[2021-10-10 17:51] LABS: CREATINE KINASE MB 2.2 ng/mL (0-5.0)
[2021-10-10] MEDS: MELATONIN 3 MG TAB PO SCH (21:00)
[2021-10-11] VITALS (28 sets, daily range): BP systolic 98–126; BP diastolic 58–96
[2021-10-11] MEDS: FUROSEMIDE INJ 10 MG/ML 4 ML VIAL IV SCH ×5 (00:28→23:46)
[2021-10-11] MEDS: ALBUTEROL/IPRATROPIUM 3 ML NEB NEB SCH ×3 (07:14→19:30)
[2021-10-11] MEDS: INSULIN REGULAR, HUMAN 100 UNIT/1 ML SQ SCH ×4 (07:30→21:00)
[2021-10-11 07:58] LABS: BASOPHILS % 0.3 % (0.0-1.0); EOSINOPHILS % 0.4 % (0.0-6.0); HEMATOCRIT 35.9 % (34.2-44.1); LYMPHOCYTES # (AUTO) 1.4 (1.0-3.2); LYMPHOCYTES % 19.9 % (18.0-39.1); MEAN CORPUSCULAR HEMOGLOBIN 32.7 pg (28-32); MEAN CORPUSCULAR HGB CONC 30.6 g/dL (31-35); MEAN CORPUSCULAR VOLUME 106.8 fL (81-99); MONOCYTES # (AUTO) 0.5 (0.2-0.8); NEUTROPHILS # (AUTO) 5.1 (2.1-6.9); NEUTROPHILS % 71.8 % (38.7-80.0); RED BLOOD COUNT 3.36 x10e6/uL (3.6-5.1); RED CELL DISTRIBUTION WIDTH 22.5 % (11.7-14.4)
[2021-10-11] MEDS: METOPROLOL TARTRATE 25 MG TAB PO SCH ×2 (08:12→17:00)
[2021-10-11] MEDS: MULTIVITAMINS/MINERALS TAB PO SCH (08:12)
[2021-10-11] MEDS: PANTOPRAZOLE SOD 40 MG TABEC PO SCH (08:12)
[2021-10-11] MEDS: CLONIDINE HCL 0.2 MG TAB PO SCH ×2 (08:12→17:00)
[2021-10-11] MEDS: LACTULOSE SYRUP 20 GM/30 ML UDC PO SCH (08:12)
[2021-10-11] MEDS: GABAPENTIN 300 MG CAP PO SCH (08:12)
[2021-10-11] MEDS: AMIODARONE HCL 200 MG TAB PO SCH (08:12)
[2021-10-11] MEDS: POLYETHYLENE GLYCOL 3350 17 GM PACK PO SCH (08:12)
[2021-10-11 08:13] LABS: PLATELET COUNT 45 x10e3/uL (140-360)
[2021-10-11 08:15] LABS: MAGNESIUM 2.8 MG/DL (1.3-2.1); PHOSPHORUS 4.2 MG/DL (2.3-4.7)
[2021-10-11 08:16] LABS: % IRON SATURATION 15 % (15-50); IRON 52 ug/dL (50-170); TOTAL IRON BINDING CAPACITY 351 ug/dL (261-478); TRANSFERRIN 251 mg/dL (180-382)
[2021-10-11 09:07] LABS: ALBUMIN 3.4 g/dL (3.5-5.0); ANION GAP 17.4 mmol/L (8-16); CALCIUM 9.1 mg/dL (8.4-10.2); CREATININE, SERUM 3.77 mg/dL (0.57-1.11); POTASSIUM 4.4 mmol/L (3.5-5.1)
[2021-10-11 09:08] LABS: ALBUMIN/GLOBULIN RATIO 1.1 (0.8-2.0)
[2021-10-11] MEDS ORDERED: ONDANSETRON HCL INJ 2MG/ML 2ML 2 MG/ML VIAL IV PRN (11:00)
[2021-10-11 13:41] LABS: ABG HCO3 34 mmol/L (22-26); ABG PCO2 64 mmHg (35-45); ABG PH 7.34 (7.35-7.45); ABG PO2 69 mmHg (80-105); ABG TCO2 36
[2021-10-11 14:14] LABS: CREATININE,URINE RANDOM 84.5 mg/dL (47-110)
[2021-10-11] MEDS: MELATONIN 3 MG TAB PO SCH (21:00)
[2021-10-12] VITALS (19 sets, daily range): BP systolic 88–121; BP diastolic 53–69
[2021-10-12] MEDS: ALBUTEROL/IPRATROPIUM 3 ML NEB NEB SCH ×4 (01:00→19:05)
[2021-10-12 05:14] LABS: BASOPHILS % 0.3 % (0.0-1.0); EOSINOPHILS % 0.2 % (0.0-6.0); HEMATOCRIT 35.9 % (34.2-44.1); HEMOGLOBIN 10.8 g/dL (12.0-16.0); LYMPHOCYTES # (AUTO) 1.1 (1.0-3.2); LYMPHOCYTES % 16.6 % (18.0-39.1); MEAN CORPUSCULAR HEMOGLOBIN 32.3 pg (28-32); MEAN CORPUSCULAR HGB CONC 30.1 g/dL (31-35); MEAN CORPUSCULAR VOLUME 107.5 fL (81-99); MONOCYTES # (AUTO) 0.5 (0.2-0.8); NEUTROPHILS # (AUTO) 4.9 (2.1-6.9); NEUTROPHILS % 75.4 % (38.7-80.0); RED BLOOD COUNT 3.34 x10e6/uL (3.6-5.1); RED CELL DISTRIBUTION WIDTH 22.2 % (11.7-14.4)
[2021-10-12 05:22] LABS: PLATELET COUNT 40 x10e3/uL (140-360)
[2021-10-12] MEDS: FUROSEMIDE INJ 10 MG/ML 4 ML VIAL IV SCH ×3 (05:30→17:47)
[2021-10-12 05:31] LABS: ALBUMIN 3.1 g/dL (3.5-5.0); ALBUMIN/GLOBULIN RATIO 1.1 (0.8-2.0); CREATININE, SERUM 3.84 mg/dL (0.57-1.11)
[2021-10-12] MEDS: INSULIN REGULAR, HUMAN 100 UNIT/1 ML SQ SCH ×4 (07:30→21:14)
[2021-10-12] MEDS: LACTULOSE SYRUP 20 GM/30 ML UDC PO SCH (09:00)
[2021-10-12] MEDS: POLYETHYLENE GLYCOL 3350 17 GM PACK PO SCH (09:00)
[2021-10-12] MEDS: PANTOPRAZOLE SOD 40 MG TABEC PO SCH (09:27)
[2021-10-12] MEDS: AMIODARONE HCL 200 MG TAB PO SCH (10:10)
[2021-10-12] MEDS: METOPROLOL TARTRATE 25 MG TAB PO SCH ×2 (10:14→17:47)
[2021-10-12] MEDS: MULTIVITAMINS/MINERALS TAB PO SCH (10:14)
[2021-10-12] MEDS: CLONIDINE HCL 0.2 MG TAB PO SCH ×2 (12:09→17:47)
[2021-10-12] MEDS: DOXYCYCLINE HYCLATE TABLET 100 MG TAB PO SCH ×2 (12:09→17:47)
[2021-10-12 13:37] LABS: ABG HCO3 35 mmol/L (22-26); ABG PCO2 59 mmHg (35-45); ABG PH 7.39 (7.35-7.45); ABG PO2 89 mmHg (80-105); ABG TCO2 37
[2021-10-12] MEDS ORDERED: CLONIDINE HCL 0.2 MG TAB PO SCH (17:00)
[2021-10-12] MEDS: MELATONIN 3 MG TAB PO SCH (21:20)
[2021-10-13] VITALS (23 sets, daily range): BP systolic 92–152; BP diastolic 53–119
[2021-10-13] MEDS: FUROSEMIDE INJ 10 MG/ML 4 ML VIAL IV SCH ×4 (00:33→21:16)
[2021-10-13] MEDS: ALBUTEROL/IPRATROPIUM 3 ML NEB NEB SCH ×4 (01:05→21:00)
[2021-10-13 05:34] LABS: BASOPHILS % 0.3 % (0.0-1.0); EOSINOPHILS % 0.3 % (0.0-6.0); HEMATOCRIT 32.8 % (34.2-44.1); HEMOGLOBIN 10.7 g/dL (12.0-16.0); MEAN CORPUSCULAR HEMOGLOBIN 34.3 pg (28-32); MEAN CORPUSCULAR HGB CONC 32.6 g/dL (31-35); MEAN CORPUSCULAR VOLUME 105.1 fL (81-99); MONOCYTES # (AUTO) 0.5 (0.2-0.8); NEUTROPHILS # (AUTO) 5.1 (2.1-6.9); RED BLOOD COUNT 3.12 x10e6/uL (3.6-5.1)
[2021-10-13 05:38] LABS: PLATELET COUNT 42 x10e3/uL (140-360)
[2021-10-13 05:51] LABS: INR 1.35; PROTHROMBIN TIME 17.8 seconds (11.9-14.5)
[2021-10-13 05:53] LABS: ANION GAP 15.5 mmol/L (8-16); BILIRUBIN,DIRECT 1.5 mg/dL (0.0-0.5); CALCIUM 8.9 mg/dL (8.4-10.2); CREATININE, SERUM 3.11 mg/dL (0.57-1.11); POTASSIUM 3.5 mmol/L (3.5-5.1)
[2021-10-13] MEDS: INSULIN REGULAR, HUMAN 100 UNIT/1 ML SQ SCH ×4 (07:24→20:13)
[2021-10-13] MEDS: PANTOPRAZOLE SOD 40 MG TABEC PO SCH (07:46)
[2021-10-13] MEDS: LACTULOSE SYRUP 20 GM/30 ML UDC PO SCH (08:00)
[2021-10-13] MEDS: CLONIDINE HCL 0.2 MG TAB PO SCH ×2 (08:00→16:18)
[2021-10-13] MEDS: AMIODARONE HCL 200 MG TAB PO SCH (08:00)
[2021-10-13] MEDS: POLYETHYLENE GLYCOL 3350 17 GM PACK PO SCH (08:01)
[2021-10-13] MEDS: METOPROLOL TARTRATE 25 MG TAB PO SCH ×2 (08:01→16:18)
[2021-10-13] MEDS: MULTIVITAMINS/MINERALS TAB PO SCH (08:01)
[2021-10-13] MEDS: DOXYCYCLINE HYCLATE TABLET 100 MG TAB PO SCH ×2 (08:01→16:18)
[2021-10-13] MEDS ORDERED: DIPHENHYDRAMINE HCL INJ 50 MG/ML VIAL IV ONE (10:45)
[2021-10-13] MEDS: POTASSIUM CHLORIDE 20MEQ/100ML 100 ML IV SCH ×2 (11:36→14:23)
[2021-10-13] MEDS: MELATONIN 3 MG TAB PO SCH ×2 (20:14→23:28)
[2021-10-14] VITALS (9 sets, daily range): BP systolic 95–110; BP diastolic 58–70
[2021-10-14] MEDS: ALBUTEROL/IPRATROPIUM 3 ML NEB NEB SCH ×4 (01:25→20:00)
[2021-10-14] MEDS: ZOLPIDEM TARTRATE 10 MG TAB PO PRN (01:38)
[2021-10-14] MEDS: FUROSEMIDE INJ 10 MG/ML 4 ML VIAL IV SCH (05:06)
[2021-10-14] MEDS: INSULIN REGULAR, HUMAN 100 UNIT/1 ML SQ SCH ×4 (07:30→20:33)
[2021-10-14] MEDS: METOPROLOL TARTRATE 25 MG TAB PO SCH ×2 (09:00→18:14)
[2021-10-14] MEDS: POLYETHYLENE GLYCOL 3350 17 GM PACK PO SCH ×2 (09:00→10:14)
[2021-10-14] MEDS: AMIODARONE HCL 200 MG TAB PO SCH (09:35)
[2021-10-14] MEDS: LACTULOSE SYRUP 20 GM/30 ML UDC PO SCH (09:35)
[2021-10-14] MEDS: PANTOPRAZOLE SOD 40 MG TABEC PO SCH (09:42)
[2021-10-14] MEDS: MULTIVITAMINS/MINERALS TAB PO SCH (09:43)
[2021-10-14] MEDS: DOXYCYCLINE HYCLATE TABLET 100 MG TAB PO SCH ×2 (09:44→18:14)
[2021-10-14] MEDS: ACETAMINOPHEN 325 MG TAB PO PRN (09:48)
[2021-10-14] MEDS: TRAMADOL HCL 50 MG TAB PO SCH (18:14)
[2021-10-14] MEDS: CLONIDINE HCL 0.1 MG TAB PO SCH (19:41)
[2021-10-14] MEDS: MELATONIN 3 MG TAB PO SCH (20:32)
[2021-10-15] VITALS (7 sets, daily range): BP systolic 95–108; BP diastolic 58–63
[2021-10-15] MEDS: ALBUTEROL/IPRATROPIUM 3 ML NEB NEB SCH ×4 (01:20→19:50)
[2021-10-15 05:07] LABS: BASOPHILS % 0.4 % (0.0-1.0); EOSINOPHILS % 0.4 % (0.0-6.0); HEMOGLOBIN 10.4 g/dL (12.0-16.0); LYMPHOCYTES # (AUTO) 1.1 (1.0-3.2); MEAN CORPUSCULAR HEMOGLOBIN 33.1 pg (28-32); MEAN CORPUSCULAR HGB CONC 31.5 g/dL (31-35); MEAN CORPUSCULAR VOLUME 105.1 fL (81-99); MONOCYTES # (AUTO) 0.4 (0.2-0.8); MONOCYTES % 8.5 % (4.4-11.3); NEUTROPHILS # (AUTO) 3.6 (2.1-6.9); NEUTROPHILS % 68.3 % (38.7-80.0); RED BLOOD COUNT 3.14 x10e6/uL (3.6-5.1)
[2021-10-15 05:10] LABS: PLATELET COUNT 28 x10e3/uL (140-360)
[2021-10-15 05:55] LABS: ALBUMIN/GLOBULIN RATIO 0.9 (0.8-2.0); ANION GAP 17.2 mmol/L (8-16); CALCIUM 9.4 mg/dL (8.4-10.2); CREATININE, SERUM 3.05 mg/dL (0.57-1.11); POTASSIUM 4.2 mmol/L (3.5-5.1)
[2021-10-15 06:04] LABS: INR 1.19; PROTHROMBIN TIME 16.1 seconds (11.9-14.5)
[2021-10-15] MEDS: PANTOPRAZOLE SOD 40 MG TABEC PO SCH (07:29)
[2021-10-15] MEDS: INSULIN REGULAR, HUMAN 100 UNIT/1 ML SQ SCH ×4 (07:30→20:36)
[2021-10-15] MEDS: TRAMADOL HCL 50 MG TAB PO SCH ×3 (09:00→16:30)
[2021-10-15] MEDS: LACTULOSE SYRUP 20 GM/30 ML UDC PO SCH (09:00)
[2021-10-15] MEDS: METOPROLOL TARTRATE 25 MG TAB PO SCH ×2 (09:00→15:56)
[2021-10-15] MEDS: POLYETHYLENE GLYCOL 3350 17 GM PACK PO SCH (09:00)
[2021-10-15] MEDS ORDERED: ONDANSETRON HCL 4 MG ORAL DISINTEGRATING TAB PO PRN (11:15)
[2021-10-15] MEDS: PREDNISONE 20 MG TAB PO SCH (11:41)
[2021-10-15] MEDS: MULTIVITAMINS/MINERALS TAB PO SCH (11:41)
[2021-10-15] MEDS: AMIODARONE HCL 200 MG TAB PO SCH (11:41)
[2021-10-15] MEDS ORDERED: PREDNISONE 20 MG TAB PO SCH (12:00)
[2021-10-15] MEDS: CLONIDINE HCL 0.1 MG TAB PO SCH (20:06)
[2021-10-15] MEDS: MELATONIN 3 MG TAB PO SCH (20:35)
[2021-10-16] VITALS (7 sets, daily range): BP systolic 99–117; BP diastolic 63–73
[2021-10-16] MEDS: ALBUTEROL/IPRATROPIUM 3 ML NEB NEB SCH ×4 (00:45→19:26)
[2021-10-16] MEDS: ACETAMINOPHEN 325 MG TAB PO PRN (03:22)
[2021-10-16] MEDS: TRAMADOL HCL 50 MG TAB PO SCH ×2 (06:22→16:28)
[2021-10-16] MEDS: INSULIN REGULAR, HUMAN 100 UNIT/1 ML SQ SCH ×4 (07:30→21:00)
[2021-10-16] MEDS: AMIODARONE HCL 200 MG TAB PO SCH (08:22)
[2021-10-16] MEDS: PANTOPRAZOLE SOD 40 MG TABEC PO SCH (08:22)
[2021-10-16] MEDS: LACTULOSE SYRUP 20 GM/30 ML UDC PO SCH (08:22)
[2021-10-16] MEDS: METOPROLOL TARTRATE 25 MG TAB PO SCH ×2 (08:23→16:27)
[2021-10-16] MEDS: MULTIVITAMINS/MINERALS TAB PO SCH (08:23)
[2021-10-16] MEDS: POLYETHYLENE GLYCOL 3350 17 GM PACK PO SCH (08:23)
[2021-10-16] MEDS: PREDNISONE 20 MG TAB PO SCH (08:23)
[2021-10-16 10:22] LABS: HEMATOCRIT 35.3 % (34.2-44.1); LYMPHOCYTES # (AUTO) 0.5 (1.0-3.2); LYMPHOCYTES % 10.6 % (18.0-39.1); MEAN CORPUSCULAR HEMOGLOBIN 32.9 pg (28-32); MEAN CORPUSCULAR HGB CONC 31.2 g/dL (31-35); MEAN CORPUSCULAR VOLUME 105.7 fL (81-99); MONOCYTES # (AUTO) 0.2 (0.2-0.8); MONOCYTES % 5.1 % (4.4-11.3); NEUTROPHILS # (AUTO) 3.8 (2.1-6.9); NEUTROPHILS % 83.6 % (38.7-80.0); RED BLOOD COUNT 3.34 x10e6/uL (3.6-5.1); RED CELL DISTRIBUTION WIDTH 21.6 % (11.7-14.4)
[2021-10-16 10:29] LABS: PLATELET COUNT 35 x10e3/uL (140-360)
[2021-10-16 10:45] LABS: ANION GAP 20.2 mmol/L (8-16); CALCIUM 10.1 mg/dL (8.4-10.2); CREATININE, SERUM 3.35 mg/dL (0.57-1.11); POTASSIUM 5.2 mmol/L (3.5-5.1)
[2021-10-16] MEDS ORDERED: SODIUM CHLORIDE 0.9% 1000ML 2,000 ML IV PRN (13:15)
[2021-10-16] MEDS ORDERED: ALBUMIN 25% 12.5GM 0.25 GM/ML BTL IV PRN (13:15)
[2021-10-16] MEDS ORDERED: SODIUM CHLORIDE 0.9% 250ML 500 ML IV PRN (13:15)
[2021-10-16] MEDS ORDERED: MANNITOL 25% 12.5GM/50 ML VIAL IV PRN (13:15)
[2021-10-16] MEDS: MELATONIN 3 MG TAB PO SCH (21:00)
[2021-10-16] MEDS: CLONIDINE HCL 0.1 MG TAB PO SCH (21:26)
[2021-10-16] MEDS: ZOLPIDEM TARTRATE 10 MG TAB PO PRN (21:26)
[2021-10-17] VITALS (26 sets, daily range): BP systolic 107–130; BP diastolic 64–90
[2021-10-17] MEDS: ALBUTEROL/IPRATROPIUM 3 ML NEB NEB SCH ×4 (00:13→19:45)
[2021-10-17] MEDS: PANTOPRAZOLE SOD 40 MG TABEC PO SCH (07:30)
[2021-10-17] MEDS: INSULIN REGULAR, HUMAN 100 UNIT/1 ML SQ SCH ×4 (07:30→21:00)
[2021-10-17] MEDS: PREDNISONE 20 MG TAB PO SCH (09:00)
[2021-10-17] MEDS: MULTIVITAMINS/MINERALS TAB PO SCH (09:00)
[2021-10-17] MEDS: LACTULOSE SYRUP 20 GM/30 ML UDC PO SCH (09:00)
[2021-10-17] MEDS: POLYETHYLENE GLYCOL 3350 17 GM PACK PO SCH (09:00)
[2021-10-17] MEDS: METOPROLOL TARTRATE 25 MG TAB PO SCH ×2 (09:00→17:00)
[2021-10-17] MEDS: AMIODARONE HCL 200 MG TAB PO SCH (09:00)
[2021-10-17 09:09] LABS: ABG HCO3 26 mmol/L (22-26); ABG PCO2 37 mmHg (35-45); ABG PH 7.45 (7.35-7.45); ABG PO2 52 mmHg (80-105); ABG TCO2 27
[2021-10-17 10:53] LABS: HEMATOCRIT 37.3 % (34.2-44.1); HEMOGLOBIN 11.6 g/dL (12.0-16.0); LYMPHOCYTES % 12.8 % (18.0-39.1); MEAN CORPUSCULAR HEMOGLOBIN 32.7 pg (28-32); MEAN CORPUSCULAR HGB CONC 31.1 g/dL (31-35); MEAN CORPUSCULAR VOLUME 105.1 fL (81-99); MONOCYTES # (AUTO) 0.6 (0.2-0.8); MONOCYTES % 8.2 % (4.4-11.3); NEUTROPHILS % 78.5 % (38.7-80.0); RED BLOOD COUNT 3.55 x10e6/uL (3.6-5.1); RED CELL DISTRIBUTION WIDTH 21.7 % (11.7-14.4)
[2021-10-17 10:57] LABS: MAGNESIUM 2.5 MG/DL (1.3-2.1); PHOSPHORUS 4.7 MG/DL (2.3-4.7)
[2021-10-17 10:57] LABS: PLATELET COUNT 48 x10e3/uL (140-360)
[2021-10-17 10:59] LABS: ALBUMIN 3.4 g/dL (3.5-5.0); ANION GAP 22.8 mmol/L (8-16); CALCIUM 10.3 mg/dL (8.4-10.2); CREATININE, SERUM 4.04 mg/dL (0.57-1.11)
[2021-10-17 11:00] LABS: POTASSIUM 5.8 mmol/L (3.5-5.1)
[2021-10-17] MEDS ORDERED: DEXTROSE 50% SYRINGE 50 ML IV STA (12:24)
[2021-10-17] MEDS ORDERED: INSULIN REGULAR, HUMAN 100 UNIT/1 ML IV ONE (12:30)
[2021-10-17] MEDS ORDERED: HEPARIN SOD (PORCINE) 1000 UNIT/ML SDV IV PRN (13:15)
[2021-10-17] MEDS ORDERED: HEPARIN SOD (PORCINE) 1000 UNIT/ML SDV ONE (16:40)
[2021-10-17] MEDS: MELATONIN 3 MG TAB PO SCH (20:03)
[2021-10-17] MEDS: CLONIDINE HCL 0.1 MG TAB PO SCH (21:00)
[2021-10-18] VITALS (25 sets, daily range): BP systolic 107–133; BP diastolic 59–97
[2021-10-18] MEDS: ALBUTEROL/IPRATROPIUM 3 ML NEB NEB SCH ×4 (02:35→19:35)
[2021-10-18 04:56] LABS: HEMATOCRIT 34.5 % (34.2-44.1); HEMOGLOBIN 10.9 g/dL (12.0-16.0); LYMPHOCYTES # (AUTO) 0.7 (1.0-3.2); LYMPHOCYTES % 9.2 % (18.0-39.1); MEAN CORPUSCULAR HEMOGLOBIN 33.3 pg (28-32); MEAN CORPUSCULAR HGB CONC 31.6 g/dL (31-35); MEAN CORPUSCULAR VOLUME 105.5 fL (81-99); MONOCYTES # (AUTO) 0.6 (0.2-0.8); MONOCYTES % 7.1 % (4.4-11.3); NEUTROPHILS # (AUTO) 6.5 (2.1-6.9); NEUTROPHILS % 83.2 % (38.7-80.0); PLATELET COUNT 50 x10e3/uL (140-360); RED BLOOD COUNT 3.27 x10e6/uL (3.6-5.1)
[2021-10-18 05:17] LABS: ALBUMIN 3.3 g/dL (3.5-5.0); ANION GAP 18.4 mmol/L (8-16); CALCIUM 9.1 mg/dL (8.4-10.2); CREATININE, SERUM 3.43 mg/dL (0.57-1.11); POTASSIUM 4.4 mmol/L (3.5-5.1)
[2021-10-18] MEDS: MULTIVITAMINS/MINERALS TAB PO SCH (08:10)
[2021-10-18] MEDS: PREDNISONE 20 MG TAB PO SCH (08:10)
[2021-10-18] MEDS: AMIODARONE HCL 200 MG TAB PO SCH (08:10)
[2021-10-18] MEDS: LACTULOSE SYRUP 20 GM/30 ML UDC PO SCH (08:12)
[2021-10-18] MEDS: METOPROLOL TARTRATE 25 MG TAB PO SCH ×2 (08:13→16:40)
[2021-10-18] MEDS: POLYETHYLENE GLYCOL 3350 17 GM PACK PO SCH (08:13)
[2021-10-18] MEDS: INSULIN REGULAR, HUMAN 100 UNIT/1 ML SQ SCH ×4 (08:17→20:38)
[2021-10-18] MEDS: CLONIDINE HCL 0.1 MG TAB PO SCH (20:34)
[2021-10-18] MEDS: ACETAMINOPHEN 325 MG TAB PO PRN (21:51)
[2021-10-19] VITALS (13 sets, daily range): BP systolic 108–134; BP diastolic 68–78
[2021-10-19] MEDS: ALBUTEROL/IPRATROPIUM 3 ML NEB NEB SCH ×4 (01:15→19:40)
[2021-10-19 05:06] LABS: BASOPHILS % 0.1 % (0.0-1.0); HEMATOCRIT 36.8 % (34.2-44.1); HEMOGLOBIN 11.3 g/dL (12.0-16.0); LYMPHOCYTES # (AUTO) 0.5 (1.0-3.2); LYMPHOCYTES % 6.9 % (18.0-39.1); MEAN CORPUSCULAR HEMOGLOBIN 32.8 pg (28-32); MEAN CORPUSCULAR HGB CONC 30.7 g/dL (31-35); MONOCYTES # (AUTO) 0.5 (0.2-0.8); MONOCYTES % 6.6 % (4.4-11.3); NEUTROPHILS # (AUTO) 6.5 (2.1-6.9); NEUTROPHILS % 85.9 % (38.7-80.0); PLATELET COUNT 55 x10e3/uL (140-360); RED BLOOD COUNT 3.44 x10e6/uL (3.6-5.1); RED CELL DISTRIBUTION WIDTH 22.8 % (11.7-14.4)
[2021-10-19 05:28] LABS: ALBUMIN 3.2 g/dL (3.5-5.0); ANION GAP 17.5 mmol/L (8-16); CALCIUM 9.9 mg/dL (8.4-10.2); CREATININE, SERUM 2.61 mg/dL (0.57-1.11); POTASSIUM 4.5 mmol/L (3.5-5.1)
[2021-10-19] MEDS: INSULIN REGULAR, HUMAN 100 UNIT/1 ML SQ SCH ×4 (07:30→20:37)
[2021-10-19] MEDS: AMIODARONE HCL 200 MG TAB PO SCH (09:18)
[2021-10-19] MEDS: METOPROLOL TARTRATE 25 MG TAB PO SCH ×2 (09:18→17:24)
[2021-10-19] MEDS: PREDNISONE 20 MG TAB PO SCH (09:21)
[2021-10-19] MEDS: MULTIVITAMINS/MINERALS TAB PO SCH (09:22)
[2021-10-19] MEDS: POLYETHYLENE GLYCOL 3350 17 GM PACK PO SCH (09:23)
[2021-10-19] MEDS: LACTULOSE SYRUP 20 GM/30 ML UDC PO SCH (09:23)
[2021-10-19] MEDS: CLONIDINE HCL 0.1 MG TAB PO SCH (20:30)
[2021-10-20] MEDS: ALBUTEROL/IPRATROPIUM 3 ML NEB NEB SCH ×4 (00:35→19:10)
[2021-10-20 03:00] VITALS: BP 100/66
[2021-10-20 06:14] LABS: HEMATOCRIT 38.3 % (34.2-44.1); HEMOGLOBIN 11.9 g/dL (12.0-16.0); LYMPHOCYTES # (AUTO) 0.9 (1.0-3.2); LYMPHOCYTES % 11.5 % (18.0-39.1); MEAN CORPUSCULAR HEMOGLOBIN 33.2 pg (28-32); MEAN CORPUSCULAR HGB CONC 31.1 g/dL (31-35); MONOCYTES # (AUTO) 0.5 (0.2-0.8); MONOCYTES % 6.6 % (4.4-11.3); NEUTROPHILS # (AUTO) 6.5 (2.1-6.9); NEUTROPHILS % 81.1 % (38.7-80.0); PLATELET COUNT 70 x10e3/uL (140-360); RED BLOOD COUNT 3.58 x10e6/uL (3.6-5.1); RED CELL DISTRIBUTION WIDTH 22.5 % (11.7-14.4)
[2021-10-20 06:43] LABS: ALBUMIN 3.2 g/dL (3.5-5.0); ANION GAP 19.5 mmol/L (8-16); CALCIUM 9.8 mg/dL (8.4-10.2); CREATININE, SERUM 3.22 mg/dL (0.57-1.11); POTASSIUM 4.5 mmol/L (3.5-5.1)
[2021-10-20 07:00] VITALS: BP 121/74
[2021-10-20] MEDS: INSULIN REGULAR, HUMAN 100 UNIT/1 ML SQ SCH ×4 (08:06→22:28)
[2021-10-20] MEDS: AMIODARONE HCL 200 MG TAB PO SCH (08:58)
[2021-10-20] MEDS: POLYETHYLENE GLYCOL 3350 17 GM PACK PO SCH (08:58)
[2021-10-20] MEDS: MULTIVITAMINS/MINERALS TAB PO SCH (08:58)
[2021-10-20] MEDS: PREDNISONE 20 MG TAB PO SCH (08:58)
[2021-10-20] MEDS: LACTULOSE SYRUP 20 GM/30 ML UDC PO SCH (08:58)
[2021-10-20] MEDS: METOPROLOL TARTRATE 25 MG TAB PO SCH ×2 (08:58→17:21)
[2021-10-20] MEDS ORDERED: AZITHROMYCIN 250 MG TAB PO ONE (10:30)
[2021-10-20 11:00] VITALS: BP 108/73
[2021-10-20 11:43] LABS: ANISOCYTOSIS MODERATE; HYPOCHROMASIA MODERATE; OVALOCYTES FEW; PLATELET ESTIMATE MODERATELY DECREASED; PLATELET MORPHOLOGY COMMENT NORMAL; POLYCHROMASIA FEW; RBC MORPHOLOGY COMMENT ABNORMAL
[2021-10-20 15:20] VITALS: BP 136/75
[2021-10-20 20:00] VITALS: BP 132/87
[2021-10-20 22:32] VITALS: BP 132/87
[2021-10-21] VITALS (8 sets, daily range): BP systolic 113–141; BP diastolic 68–87
[2021-10-21] MEDS: ALBUTEROL/IPRATROPIUM 3 ML NEB NEB SCH ×4 (00:55→19:40)
[2021-10-21 06:10] LABS: ALBUMIN 3.3 g/dL (3.5-5.0); ALBUMIN/GLOBULIN RATIO 1.1 (0.8-2.0); ANION GAP 16.7 mmol/L (8-16); CALCIUM 9.5 mg/dL (8.4-10.2); CREATININE, SERUM 2.86 mg/dL (0.57-1.11); POTASSIUM 4.7 mmol/L (3.5-5.1)
[2021-10-21] MEDS: INSULIN REGULAR, HUMAN 100 UNIT/1 ML SQ SCH ×4 (07:30→22:33)
[2021-10-21 07:46] LABS: HEMATOCRIT 37.3 % (34.2-44.1); HEMOGLOBIN 11.8 g/dL (12.0-16.0); LYMPHOCYTES # (AUTO) 0.5 (1.0-3.2); LYMPHOCYTES % 7.3 % (18.0-39.1); MEAN CORPUSCULAR HEMOGLOBIN 33.2 pg (28-32); MEAN CORPUSCULAR HGB CONC 31.6 g/dL (31-35); MEAN CORPUSCULAR VOLUME 105.1 fL (81-99); MONOCYTES # (AUTO) 0.4 (0.2-0.8); MONOCYTES % 5.8 % (4.4-11.3); NEUTROPHILS # (AUTO) 6.3 (2.1-6.9); NEUTROPHILS % 86.1 % (38.7-80.0); PLATELET COUNT 76 x10e3/uL (140-360); RED BLOOD COUNT 3.55 x10e6/uL (3.6-5.1); RED CELL DISTRIBUTION WIDTH 22.5 % (11.7-14.4)
[2021-10-21 07:53] LABS: INR 1.35; PROTHROMBIN TIME 17.8 seconds (11.9-14.5)
[2021-10-21] MEDS: METOPROLOL TARTRATE 25 MG TAB PO SCH ×2 (09:00→16:44)
[2021-10-21 09:35] LABS: BAND NEUTROPHILS % (MANUAL) 2 %; LYMPHOCYTES % (MANUAL) 8 % (19-48); MONOCYTES % (MANUAL) 8 % (3.4-9.0); NEUTROPHILS % (MANUAL) 82 % (40-74); PLATELET MORPHOLOGY COMMENT FEW LARGE
[2021-10-21 09:37] LABS: RBC MORPHOLOGY COMMENT ABNORMAL
[2021-10-21 09:43] LABS: PLATELET ESTIMATE ADEQUATE
[2021-10-21 11:45] LABS: BILIRUBIN,DIRECT 2.7 mg/dL (0.0-0.5)
[2021-10-21] MEDS ORDERED: LIDOCAINE HCL 1% LOCAL INJ 20 ML VIAL ONE (12:22)
[2021-10-21] MEDS ORDERED: SODIUM CHLORIDE 0.9% 250ML 250 ML ONE (12:40)
[2021-10-21] MEDS ORDERED: HEPARIN SOD (PORCINE) 1000 UNIT/ML SDV ONE (13:44)
[2021-10-21] MEDS: MULTIVITAMINS/MINERALS TAB PO SCH (16:41)
[2021-10-21] MEDS: PREDNISONE 20 MG TAB PO SCH (16:41)
[2021-10-21] MEDS: POLYETHYLENE GLYCOL 3350 17 GM PACK PO SCH (16:42)
[2021-10-21] MEDS: LACTULOSE SYRUP 20 GM/30 ML UDC PO SCH (16:43)
[2021-10-21] MEDS: AMIODARONE HCL 200 MG TAB PO SCH (16:43)
[2021-10-21] MEDS: AZITHROMYCIN 250 MG TAB PO SCH (16:44)
[2021-10-22] VITALS (8 sets, daily range): BP systolic 110–128; BP diastolic 45–80
[2021-10-22] MEDS: ALBUTEROL/IPRATROPIUM 3 ML NEB NEB SCH ×4 (01:48→20:15)
[2021-10-22] MEDS: INSULIN REGULAR, HUMAN 100 UNIT/1 ML SQ SCH ×4 (08:30→21:00)
[2021-10-22] MEDS: MULTIVITAMINS/MINERALS TAB PO SCH (08:51)
[2021-10-22] MEDS: LACTULOSE SYRUP 20 GM/30 ML UDC PO SCH (08:51)
[2021-10-22] MEDS: POLYETHYLENE GLYCOL 3350 17 GM PACK PO SCH (08:51)
[2021-10-22] MEDS: AZITHROMYCIN 250 MG TAB PO SCH (08:51)
[2021-10-22] MEDS: PREDNISONE 20 MG TAB PO SCH (08:51)
[2021-10-22] MEDS: AMIODARONE HCL 200 MG TAB PO SCH (08:52)
[2021-10-22] MEDS: METOPROLOL TARTRATE 25 MG TAB PO SCH ×2 (08:52→17:11)
[2021-10-22] MEDS: NYSTATIN SUSPENSION 5 ML UDC PO SCH ×2 (12:00→17:10)
[2021-10-22] MEDS ORDERED: HYDROMORPHONE 1MG/1ML INJ IV PRN (13:00)
[2021-10-22] MEDS: CLOTRIMAZOLE 10 MG TAB PO SCH ×3 (13:00→21:27)
[2021-10-22] MEDS: FLUCONAZOLE 100 MG/NS 50 ML 50 ML IV SCH (15:29)
[2021-10-22] MEDS ORDERED: NYSTATIN SUSPENSION 5 ML UDC PO SCH (18:00)
[2021-10-23] VITALS (7 sets, daily range): BP systolic 89–130; BP diastolic 37–99
[2021-10-23] MEDS: NYSTATIN SUSPENSION 5 ML UDC PO SCH ×3 (00:51→12:00)
[2021-10-23] MEDS: ALBUTEROL/IPRATROPIUM 3 ML NEB NEB SCH ×4 (01:00→20:30)
[2021-10-23] MEDS: CLOTRIMAZOLE 10 MG TAB PO SCH ×3 (05:26→13:00)
[2021-10-23] MEDS: POLYETHYLENE GLYCOL 3350 17 GM PACK PO SCH (09:00)
[2021-10-23] MEDS ORDERED: PREDNISONE 10 MG TAB PO SCH (09:00)
[2021-10-23] MEDS ORDERED: PREDNISONE 20 MG TAB PO SCH (09:00)
[2021-10-23] MEDS: AMIODARONE HCL 200 MG TAB PO SCH (09:38)
[2021-10-23] MEDS: MULTIVITAMINS/MINERALS TAB PO SCH (09:39)
[2021-10-23] MEDS: LACTULOSE SYRUP 20 GM/30 ML UDC PO SCH (09:39)
[2021-10-23] MEDS: METOPROLOL TARTRATE 25 MG TAB PO SCH (09:39)
[2021-10-23] MEDS: INSULIN REGULAR, HUMAN 100 UNIT/1 ML SQ SCH ×4 (09:42→21:00)
[2021-10-23] MEDS: FLUCONAZOLE 100 MG/NS 50 ML 50 ML IV SCH (13:11)
[2021-10-23 13:14] LABS: ABG PCO2 33 mmHg (35-45); ABG PH 7.41 (7.35-7.45)
[2021-10-23 13:16] LABS: ABG HCO3 21 mmol/L (22-26); ABG PO2 45 mmHg (80-105); ABG TCO2 22
[2021-10-23 14:48] LABS: CLARITY,URINE TURBID (CLEAR); COLOR,URINE BROWN (YELLOW); LEUKOCYTE ESTERASE ,URINE TRACE (NEGATIVE); NITRITE,URINE POSITIVE (NEGATIVE); PROTEIN,URINE DIPSTICK 2+ (NEGATIVE)
[2021-10-23 14:49] LABS: KETONES,URINE TRACE (NEGATIVE); URINE UROBILINOGEN 2 mg/dL (0.2 - 1)
[2021-10-23 15:04] LABS: AMORPHOUS SEDIMENT,URINE MANY (FEW); BACTERIA,URINE MODERATE /HPF; EPITHELIAL CELLS,URINE FEW /LPF; RBC,URINE 0-5 /HPF (0-5); WBC,URINE (MAN) 0-5 /HPF (0-5)
[2021-10-23] MEDS ORDERED: HYDROMORPHONE 1MG/1ML INJ IV PRN (15:45)
[2021-10-24] VITALS (7 sets, daily range): BP systolic 87–100; BP diastolic 19–66
[2021-10-24] MEDS: ALBUTEROL/IPRATROPIUM 3 ML NEB NEB SCH ×4 (01:38→20:35)
[2021-10-24 05:31] LABS: BASOPHILS % 0.1 % (0.0-1.0); HEMATOCRIT 40.8 % (34.2-44.1); HEMOGLOBIN 12.3 g/dL (12.0-16.0); LYMPHOCYTES # (AUTO) 0.7 (1.0-3.2); LYMPHOCYTES % 4.6 % (18.0-39.1); MEAN CORPUSCULAR HEMOGLOBIN 33.5 pg (28-32); MEAN CORPUSCULAR HGB CONC 30.1 g/dL (31-35); MEAN CORPUSCULAR VOLUME 111.2 fL (81-99); MONOCYTES # (AUTO) 0.6 (0.2-0.8); MONOCYTES % 4.5 % (4.4-11.3); NEUTROPHILS # (AUTO) 12.6 (2.1-6.9); NEUTROPHILS % 89.9 % (38.7-80.0); PLATELET COUNT 50 x10e3/uL (140-360); RED BLOOD COUNT 3.67 x10e6/uL (3.6-5.1); RED CELL DISTRIBUTION WIDTH 23.9 % (11.7-14.4)
[2021-10-24 06:03] LABS: ANION GAP 25.2 mmol/L (8-16); CALCIUM 8.6 mg/dL (8.4-10.2); CREATININE, SERUM 5.09 mg/dL (0.57-1.11)
[2021-10-24 06:12] LABS: POTASSIUM 6.2 mmol/L (3.5-5.1)
[2021-10-24] MEDS: INSULIN REGULAR, HUMAN 100 UNIT/1 ML SQ SCH ×4 (07:30→21:00)
[2021-10-24] MEDS ORDERED: CALCIUM GLUC 1 G/50 ML NACL 50 ML IV ONE (08:45)
[2021-10-24 08:50] LABS: ANION GAP 24.2 mmol/L (8-16); CALCIUM 8.4 mg/dL (8.4-10.2); CREATININE, SERUM 5.18 mg/dL (0.57-1.11)
[2021-10-24 09:13] LABS: POTASSIUM 6.2 mmol/L (3.5-5.1)
[2021-10-24 09:21] LABS: LYMPHOCYTES % (MANUAL) 1 % (19-48); MONOCYTES % (MANUAL) 1 % (3.4-9.0); NEUTROPHILS % (MANUAL) 98 % (40-74); PLATELET ESTIMATE MODERATELY DECREASED; PLATELET MORPHOLOGY COMMENT NORMAL
[2021-10-24 09:22] LABS: RBC MORPHOLOGY COMMENT NORMAL
[2021-10-24] MEDS: FLUCONAZOLE 100 MG/NS 50 ML 50 ML IV SCH (12:12)
[2021-10-24] MEDS: ACETAMINOPHEN 325 MG SUPP PR PRN ×2 (12:12→22:33)
[2021-10-25] VITALS: BP 80/46
[2021-10-25] MEDS: ALBUTEROL/IPRATROPIUM 3 ML NEB NEB SCH ×2 (02:30→07:30)
[2021-10-25 04:00] VITALS: BP 96/44
[2021-10-25] MEDS: INSULIN REGULAR, HUMAN 100 UNIT/1 ML SQ SCH (07:30)
[2021-10-25 07:59] VITALS: BP 81/63
[2021-10-25 08:07] VITALS: BP 81/63
[2021-10-25] MEDS ORDERED: BALSAM PERU/CASTOR OIL 60 GM OINT...G. TP SCH (09:00)
[2021-10-25 11:12] VITALS: BP 94/31
== END 2021-10-25 12:10 | disposition hospice, inpatient (51) | DRG 291 ==
LOC: ER 20:50 → ERHOLD 22:50 → INTOOBSV 22:50 → MED/SURG 10-10 00:50 → OBSVTOIN 10-11 14:55 → ICU 10-11 16:26 → MED/SURG 10-13 17:05 → MED/SURG2 10-16 15:12 → ICU 10-17 09:23 → MED/SURG 10-20 15:06
PROC: 02HV33Z Insertion of Infusion Device into Superior Vena Cava, Percutaneous Approach (ICD-10-PCS; principal; 2021-10-10)
PROC: B548ZZA Ultrasonography of Superior Vena Cava, Guidance (ICD-10-PCS; 2021-10-10)
PROC: 5A09357 Assistance with Respiratory Ventilation, Less than 24 Consecutive Hours, Continuous Positive Airway Pressure (ICD-10-PCS; 2021-10-11)
PROC: 5A1D70Z Performance of Urinary Filtration, Intermittent, Less than 6 Hours Per Day (ICD-10-PCS; 2021-10-17)
PROC: 0JH63XZ Insertion of Tunneled Vascular Access Device into Chest Subcutaneous Tissue and Fascia, Percutaneous Approach (ICD-10-PCS; 2021-10-21)
PROC: 02HV33Z Insertion of Infusion Device into Superior Vena Cava, Percutaneous Approach (ICD-10-PCS; 2021-10-21)
PROC: 02HV33Z Insertion of Infusion Device into Superior Vena Cava, Percutaneous Approach (ICD-10-PCS; 2021-10-23)
DX: I13.2 Hypertensive heart and chronic kidney disease with heart failure and with stage 5 chronic kidney disease, or end stage renal disease (principal); I50.23 Acute on chronic systolic (congestive) heart failure; J96.02 Acute respiratory failure with hypercapnia; J18.9 Pneumonia, unspecified organism; J96.01 Acute respiratory failure with hypoxia; N18.6 End stage renal disease; G93.41 Metabolic encephalopathy; N17.9 Acute kidney failure, unspecified; R64 Cachexia; D69.41 Evans syndrome; E87.1 Hypo-osmolality and hyponatremia; D53.1 Other megaloblastic anemias, not elsewhere classified; D63.1 Anemia in chronic kidney disease; E11.22 Type 2 diabetes mellitus with diabetic chronic kidney disease; Z95.1 Presence of aortocoronary bypass graft; K76.0 Fatty (change of) liver, not elsewhere classified; E78.5 Hyperlipidemia, unspecified; Z95.810 Presence of automatic (implantable) cardiac defibrillator; Z88.1 Allergy status to other antibiotic agents; E66.9 Obesity, unspecified; Z20.822 Contact with and (suspected) exposure to COVID-19; Z68.26 Body mass index [BMI] 26.0-26.9, adult; F32.9 Major depressive disorder, single episode, unspecified; Z96.653 Presence of artificial knee joint, bilateral; Z83.3 Family history of diabetes mellitus; I48.0 Paroxysmal atrial fibrillation; I25.10 Atherosclerotic heart disease of native coronary artery without angina pectoris; T42.6X5A Adverse effect of other antiepileptic and sedative-hypnotic drugs, initial encounter; Y92.230 Patient room in hospital as the place of occurrence of the external cause
CPT/HCPCS: 36415; 36556; 36558; 36568; 36600; 71045; 71250; 74230; 74470; 76604; 76700; 76937; 77001; 80048; 80053; 81001; 82140; 82248; 82550; 82553; 82575; 82607; 82746; 82784; 82805; 82948; 83010; 83540; 83615; 83735; 83880; 84100; 84155; 84443; 84466; 84484; 85025; 85045; 85384; 85610; 86705; 86706; 86850; 86880; 86900; 87070; 87186; 87205; 87340; 90962; 93005; 93971; 94640; 94660; 94799; 96372; 97139; 99251; 99284; C1751; C1769; C1892; G0378; J0696; J1170; J1200; J1450; J1644; J1817; J1940; J2001; J2150; J2270; J2405; J2543; J3480; J7030; J7050; J7512; J7799; Q9967; U0002